=== PATIENT | female | born 1960 | race Hispanic/Latino ===

== ENCOUNTER 2021-12-02 11:46 | Emergency (ER) | payer OTHER ==
--- NOTE | 2021-12-02 12:36 | RAD REPORT ---
EXAM DESCRIPTION: CT - Head Brain Wo Cont - 12/02/2021 12:23 pm CLINICAL HISTORY: Stroke, follow up Headache, drowsiness, CVA symptomology COMPARISON: No comparisons TECHNIQUE: All CT scans are performed using dose optimization technique as appropriate and may inclu de automated exposure control or mA/KV adjustment according to patient size. FINDINGS: Significant motion degradation is present, with changes quite limiting the exam. No no tricia ss intracranial hemorrhage, hydrocephalus or extra-axial fluid collection.No gross evidence of midlin e shift. Area of gliosis likely present medial right occipital compatible with remote infarct. The paranasal sinuses and mastoids are clear. The calvarium is intact. IMPRESSION: The examination is limited by significant motion artifact. Grossly, no acute abnormalit y is seen.
[2021-12-02 12:39] LABS: Absolute Lymphocytes (CBC) 0.9 K/uL (0.7-4.9); Hematocrit 36.6 % (36.0-45.0); Lymphocytes % 6.8 % (15.3-44.8); MPV 8.2 fL (7.6-11.3); RBC Red Blood Cell Count 3.73 M/uL (3.86-4.86)
[2021-12-02 12:46] LABS: Protime INR 1.02
[2021-12-02 12:54] LABS: Potassium 3.6 mmol/L (3.5-5.1)
[2021-12-02] MEDS ORDERED: DIVALPROEX DR 250 MG TAB PO ONE (14:19)
--- NOTE | 2021-12-02 15:00 | ER ---
Nurse's Notes [facility] Name: Jacy Alvarez Age: 61 yrs Sex: Female : 1960 Arrival Date: 12/02/2021 Time: 11:59 Bed 2 Private MD: Diagnosis: Choreiform movements related to subacute cerebral infarction Presentation: 12/02 12:00 Chief complaint: EMS states: LEFT SIDED AND FACIAL INVOLUNTARY MOTIONS. Coronavirus bp screen: At this time, the client does not indicate any symptoms associated with coronavirus-19. Ebola Screen: No symptoms or risks identified at this time. No acute neurological deficit is noted. The patients blood glucose was checked before arriving to the hospital and was found to be normal. Initial Sepsis Screen: Does the patient meet any 2 criteria? No. Patient's initial sepsis screen is negative. Does the patient have a suspected source of infection? No. Patient's initial sepsis screen is negative. Risk Assessment: Do you want to hurt yourself or someone else? Patient reports no desire to harm self or others. Onset of symptoms was December 01, 2021 at 15:00. Care prior to arrival: IV initiated. 18 GA, in the right forearm, Glucose check: 150. 12:00 Method Of Arrival: EMS: [facility] bp 12:00 Acuity: ROSALIE 3 bp Triage Assessment: 12:01 The onset of the patients symptoms was December 01, 2021 at 15:00. General: Appears bp distressed, uncomfortable, Behavior is cooperative, appropriate for age, agitated, anxious. Pain: Denies pain. EENT: No deficits noted. Neuro: Level of Consciousness is awake, alert, obeys commands, Oriented to Appropriate for age SPASTIC MOTION. Reports LEFT SIDED WEAKNESS. Cardiovascular: No deficits noted. Respiratory: No deficits noted. GI: No signs and/or symptoms were reported involving the gastrointestinal system. : No signs and/or symptoms were reported regarding the genitourinary system. Derm: No deficits noted. Musculoskeletal: LEFT SIDED SPASTICITY. Stroke Activation: Symptom onset > 6 hours Physician: Stroke Attending; Name: ; Notified At: ; Arrived At: Physician: Chief Stroke Resident; Name: ; Notified At: ; Arrived At: Physician: Stroke Resident; Name: ; Notified At: ; Arrived At: Physician: ED Attending; Name: ; Notified At: ; Arrived At: Physician: ED Resident; Name: ; Notified At: ; Arrived At: Historical: - Allergies: 12:01 No Known Allergies; bp - Home Meds: 12:01 atorvastatin oral [Active]; carvedilol oral [Active]; gabapentin oral [Active]; Lipitor bp Oral [Active]; - PMHx: 12:01 Hypertensive disorder; Hypercholesterolemia; Diabetes mellitus; Cerebrovascular bp accident; - Immunization history:: Adult Immunizations up to date. - Social history:: Smoking status: Patient denies any tobacco usage or history of. - Family history:: not pertinent. - Hospitalizations: : Patient was recently seen at. Screenin:01 Abuse screen: Denies threats or abuse. Denies injuries from another. Nutritional bp screening: No deficits noted. Tuberculosis screening: No symptoms or risk factors identified. Fall Risk None identified. Assessment: 12:01 VAN Scoring: Arm Drift: Minor drift Visual Disturbance: No visual disturbance noted. bp Aphasia: No aphasia noted. Neglect: No neglect noted. The patient has not been NPO before screening. The patient is alert, and able to follow commands. The patient exhibits slurred or garbled speech. Provider notified of the indication for Speech Therapy consult. The patient is exhibiting difficulty speaking. Provider notified of the indication for Speech Therapy consult. The patient does not exhibit difficulty understanding words. The patient is able to swallow own secretions with no drooling or need for suction. Patient tolerated one teaspoon of water. No drooling, immediate coughing, gurgling, or clearing of the throat was noted. The patient tolerated 90mL of water. No drooling, immediate coughing, gurgling, or clearing of the throat was noted. The patient failed the bedside swallow screening. The patient will be kept NPO until cleared by Speech Therapy or Physician. Provider notified of bedside swallow screening results: Shekhra Hendersno MD. T-PA (Activase) Screening: Contraindications: Patient reports onset of signs and symptoms of stroke greater than 6 hours ago:. General: SEE TRIAGE NOTE. 13:03 Reassessment: No changes from previously documented assessment. Patient and/or family bp updated on plan of care and expected duration. Pain level reassessed. RETURNED FROM CT. 14:39 Reassessment: No changes from previously documented assessment. Patient and/or family bp updated on plan of care and expected duration. Pain level reassessed. Vital Signs: 12:00 BP 152 / 96; Pulse 83; Resp 16; Temp 98.4; Pulse Ox 98% ; bp 13:02 BP 184 / 76; Pulse 80; Resp 16; Pulse Ox 97% ; bp 14:33 BP 180 / 76; Pulse 80; Resp 18; Pulse Ox 96% ; bp 15:20 BP 146 / 67; Pulse 80; Resp 16; Temp 97.23; Pulse Ox 98% ; bp NIH Stroke Scale Scores: 12:01 NIHSS Score: 6 bp ED Course: 11:59 Patient arrived in ED. bp 12:01 Triage completed. bp 12:01 Arm band placed on. bp 12:01 Patient has correct armband on for positive identification. Bed in low position. Call bp light in reach. Side rails up X2. 12:01 Maintain EMS IV. Dressing intact. Good blood return noted. Site clean \T\ dry. Gauge \T\ bp site: 18 GAUGE R FA. 12:03 Cipriano Bowen PA is PHCP. jm 12:03 Shekhar Henderson MD is Attending Physician. [facility] 12:10 Charbel Zuniga, ZENAIDA is Primary Nurse. jd3 12:11 Kian Cervantes, ZENAIDA is Primary Nurse. bp 12:26 CT Head Brain wo Cont In Process Unspecified. EDMS Administered Medications: 14:10 Drug: Depakote (divalproex) 500 mg Route: PO; bp 15:03 Follow up: Response: No adverse reaction bp Medication: 12:01 VIS not applicable for this client. bp Point of Care Testing: Blood Glucose: 12:01 Blood Glucose: 150 mg/dL; bp Ranges: Outcome: 14:59 Discharge ordered by . rn 15:46 Patient left the ED. bp NIH Stroke Scale - NIH Stroke Score Date: 12/02/2021 Time: 12:01 Total Score = 6 1a. Level of Consciousness (LOC) - 0(Alert) 1b. Level of Consciousness (LOC) (Month \T\ Age) - 0(Both) 1c. LOC Commands (Open \T\ Closes Eyes/Consulting Solution Manager) - 0(Both) 2. Best Gaze (Lateral Gaze Paresis) - 0(Normal) 3. Visual Field Loss - 0(No visual loss) 4. Facial Palsy - 0(Normal) 5a. Left Arm: Motor (10-second hold) - 2(Drift, some effort against gravity) 5b. Right Arm: Motor (10-second hold) - 0(No drift) 6a. Left Leg: Motor (5-second hold - always test supine) - 2(Drift, some effort against gravity) 6b. Right Leg: Motor (5-second hold - always test supine) - 0(No drift) 7. Limb Ataxia (finger/nose \T\ heel/lizama - test with eyes open) - 1(Present in one limb) 8. Sensory Loss (pinprick arms/legs/face) - 0(Normal) 9. Best Language: Aphasia (description/naming/reading) - 0(No aphasia) 10. Dysarthria (speech clarity - read or repeat words) - 1(Mild to Moderate) 11. Extinction and Inattention (visual/tactile/auditory/spatial/personal) - 0(No abnormality) Initials: bp Signatures: Dispatcher [employer] EDCipriano Juan PA PA jmm Nieto, Roman, MD MD rn Davies, Jonathon, RN RN jd3 Peltier, Brian, RN RN bp Corrections: (The following items were deleted from the chart) 15:45 15:20 BP 154 / 67; Pulse 80bpm; Resp 16bpm; Pulse Ox 98%; Temp 97.23F; bp bp
--- NOTE | 2021-12-02 15:00 | EDPHYS ---
Physician Documentation [facility] Name: Jacy Alvarez Age: 61 yrs Sex: Female : 1960 Arrival Date: 12/02/2021 Time: 11:59 Bed 2 Private MD: ED Physician Shekhar Henderson HPI: 12/02 13:48 This 61 yrs old Female presents to ER via EMS with complaints of worsening rn movement problem. 13:48 The patient presents to the emergency department with involuntary movements. rn 13:49 Onset: The symptoms/episode began/occurred 2 week(s) ago. Associated signs and rn symptoms: Pertinent negatives: altered mental status, fever, syncope, loss of vision. Severity of symptoms: At their worst the symptoms were moderate in the emergency department the symptoms are unchanged. Current symptoms:. The patient has been recently seen by a physician:. Pt reports seen recently at [facility], presented with involuntary movements of left side of body, diagnosed with stroke per patient. Was sent to rehab and then home. Today, family and home health nurse noticed movement worsening and seemed to cause patient more stress, so called 911. No new neurological complaints or symptoms. No trauma. Pt reports these symptoms present even prior to hospitalization. . Historical: - Allergies: 12:01 No Known Allergies; bp - Home Meds: 12:01 atorvastatin oral [Active]; carvedilol oral [Active]; gabapentin oral [Active]; Lipitor bp Oral [Active]; - PMHx: 12:01 Hypertensive disorder; Hypercholesterolemia; Diabetes mellitus; Cerebrovascular bp accident; - Immunization history:: Adult Immunizations up to date. - Social history:: Smoking status: Patient denies any tobacco usage or history of. - Family history:: not pertinent. - Hospitalizations: : Patient was recently seen at. ROS: 13:49 Constitutional: Negative for fever, chills, and weight loss, Eyes: Negative for injury, rn pain, redness, and discharge, Neck: Negative for injury, pain, and swelling, Cardiovascular: Negative for chest pain, palpitations, and edema, Respiratory: Negative for shortness of breath, cough, wheezing, and pleuritic chest pain, Abdomen/GI: Negative for abdominal pain, nausea, vomiting, diarrhea, and constipation, Back: Negative for injury and pain, MS/Extremity: Negative for injury and deformity, Skin: Negative for injury, rash, and discoloration, Neuro: Negative for numbness, tingling, and seizure. Exam: 13:49 Constitutional: This is a well developed, well nourished patient who is awake, alert, rn and in no acute distress. Head/Face: Normocephalic, atraumatic. Cardiovascular: Regular rate and rhythm. No pulse deficits. Respiratory: No increased work of breathing, no retractions or nasal flaring. Abdomen/GI: soft, non-tender Skin: Warm, dry MS/ Extremity: Pulses equal, no cyanosis. Neuro: Awake and alert, GCS 15, oriented to person, place, time, and situation. + unsynchronized involuntary movements of face, left arm, left leg, fully concsious, with ability to slow movements down with intention but returns rapidly. Vital Signs: 12:00 BP 152 / 96; Pulse 83; Resp 16; Temp 98.4; Pulse Ox 98% ; bp 13:02 BP 184 / 76; Pulse 80; Resp 16; Pulse Ox 97% ; bp 14:33 BP 180 / 76; Pulse 80; Resp 18; Pulse Ox 96% ; bp 15:20 BP 146 / 67; Pulse 80; Resp 16; Temp 97.23; Pulse Ox 98% ; bp NIH Stroke Scale Scores: 12:01 NIHSS Score: 6 bp MDM: 12:05 Patient medically screened. rn 13:44 ED course: Consulted with Dr. Langston, w/u here does not show any new or abnormal rn findings, stable vitals, he recommends dc home with initiation of depakote 250mg bid and f/u in neurology clinic. . 14:57 Data reviewed: vital signs, nurses notes, lab test result(s), radiologic studies, CT rn scan, and as a result, I will discharge patient. Counseling: I had a detailed discussion with the patient and/or guardian regarding: the historical points, exam findings, and any diagnostic results supporting the discharge/admit diagnosis, lab results, radiology results, the need for outpatient follow up, to return to the emergency department if symptoms worsen or persist or if there are any questions or concerns that arise at home. Special discussion: I discussed with the patient/guardian in detail that at this point there is no indication for admission to the hospital. It is understood, however, that if the symptoms persist or worsen the patient needs to return immediately for re-evaluation. 12/02 12:05 Order name: Basic Metabolic Panel; Complete Time: 12:58 rn 12/02 12:05 Order name: CBC with Diff; Complete Time: 12:51 rn 12/02 12:05 Order name: CT Head Brain wo Cont; Complete Time: 12:51 rn 12/02 12:05 Order name: Protime (+inr); Complete Time: 12:51 rn 12/02 12:05 Order name: Ptt, Activated; Complete Time: 12:51 rn 12/02 12:05 Order name: EKG; Complete Time: 12:06 rn 12/02 12:05 Order name: Accucheck; Complete Time: 12:12 rn 12/02 12:05 Order name: Cardiac monitoring; Complete Time: 12:12 rn 12/02 12:05 Order name: EKG - Nurse/Tech; Complete Time: 12:19 rn 12/02 12:05 Order name: IV Saline Lock; Complete Time: 12:19 rn 12/02 12:05 Order name: Labs collected and sent; Complete Time: 12:19 rn 12/02 12:05 Order name: O2 Per Protocol; Complete Time: 12:12 rn 12/02 12:05 Order name: O2 Sat Monitoring; Complete Time: 12:13 rn 12/02 12:05 Order name: Stroke Swallow Screen; Complete Time: 12:13 rn Administered Medications: 14:10 Drug: Depakote (divalproex) 500 mg Route: PO; bp 15:03 Follow up: Response: No adverse reaction bp Point of Care Testing: Blood Glucose: 12:01 Blood Glucose: 150 mg/dL; bp Ranges: Critical Glucose Levels:Adult <50 mg/dl or >400 mg/dl <40 mg/dl or >180 mg/dl Disposition Summary: 12/02/21 14:59 Discharge Ordered Location: Home rn Problem: new rn Symptoms: have improved rn Condition: Stable rn Diagnosis - Choreiform movements related to subacute cerebral infarction rn Followup: rn - With: Private Physician - When: As needed - Reason: Recheck today's complaints, Re-evaluation by your physician Discharge Instructions: - Discharge Summary Sheet rn Forms: - Medication Reconciliation Form rn - Thank You Letter rn - 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 Level of Consciousness (LOC) - 0(Alert) 1b. Level of Consciousness (LOC) (Month \T\ Age) - 0(Both) 1c. LOC Commands (Open \T\ Closes Eyes/Technical Support Intern) - 0(Both) 2. Best Gaze (Lateral Gaze Paresis) - 0(Normal) 3. Visual Field Loss - 0(No visual loss) 4. Facial Palsy - 0(Normal) 5a. Left Arm: Motor (10-second hold) - 2(Drift, some effort against gravity) 5b. Right Arm: Motor (10-second hold) - 0(No drift) 6a. Left Leg: Motor (5-second hold - always test supine) - 2(Drift, some effort against gravity) 6b. Right Leg: Motor (5-second hold - always test supine) - 0(No drift) 7. Limb Ataxia (finger/nose \T\ heel/lizama - test with eyes open) - 1(Present in one limb) 8. Sensory Loss (pinprick arms/legs/face) - 0(Normal) 9. Best Language: Aphasia (description/naming/reading) - 0(No aphasia) 10. Dysarthria (speech clarity - read or repeat words) - 1(Mild to Moderate) 11. Extinction and Inattention (visual/tactile/auditory/spatial/personal) - 0(No abnormality) Initials: bp Signatures: Dispatcher [employer] EDShekhar Ramon MD MD rn Peltier, Brian, RN RN bp Corrections: (The following items were deleted from the chart) 13:54 13:49 Constitutional: This is a well developed, well nourished patient who is rn awake, alert, and in no acute distress. rn
[2021-12-02 15:56] VITALS: TEMP 98.4
[2021-12-02 15:59] VITALS: BP 180/76; O2SAT 96
--- NOTE | 2021-12-03 07:56 | EKG ---
Test Date: 2021-12-02 Test Time: 12:03:08 Director Of Gift Planning: SARAH MEASUREMENT RESULTS: Intervals: Rate: 83 DC: 164 QRSD: 142 QT: 402 QTc: 472 [place]: P: 72 DC: 164 QRS: 3 T: 9 INTERPRETIVE STATEMENTS: Normal sinus rhythm Right bundle branch block Abnormal ECG No previous ECG available for comparison Electronically Signed On 12-03-21 07:52:42 CDT by Randy Hendrickson
== END 2021-12-02 15:46 | disposition home or self-care (01) ==
LOC: ER 11:46
DX: G25.5 Other chorea (principal); E11.9 Type 2 diabetes mellitus without complications; I10 Essential (primary) hypertension; R29.706 NIHSS score 6; Z86.73 Personal history of transient ischemic attack (TIA), and cerebral infarction without residual deficits
CPT/HCPCS: 36415; 70450; 80048; 85025; 85610; 85730; 93005; 99284

== ENCOUNTER 2021-12-04 15:06 | Emergency (ER) | payer OTHER ==
--- OUTSIDE RECORDS SUMMARY | 2021-12-04 15:12 | XMS REPORT | Continuity of Care Document ---
:1960 Author Organization [facility] t Address [address] [place] [address] Care Team Providers Name Role Phone [phone] Attending Clinician Unavailable DOMENICA CURTIS Attending Clinician Unavailable LUIS JACKSON ROSHNI Attending Clinician Unavailable DAYANARA ROBERT Attending Clinician Unavailable MD GIOVANNA RESENDIZ Attending Clinician Unavailable SHILA SIBLEY Attending Clinician Unavailable SUSAN SHELL Attending Clinician Unavailable MD ALBERTINA WAGNER Attending Clinician Unavailable ALBERTINA WAGNER Attending Clinician Unavailable JOSE ALEXANDRE Attending Clinician Unavailable MASHA GRACE Attending Clinician Unavailable MD MASHA GRACE Attending Clinician Unavailable SCARLET VERDUZCO Attending Clinician Unavailable MD SCARLET VERDUZCO Attending Clinician Unavailable AUGUSTINA JOE Attending Clinician Unavailable ELENO Attending Clinician Unavailable [id number] Admitting Clinician Unavailable LUIS JACKSON Admitting Clinician Unavailable ASTRID Admitting Clinician Unavailable SUMAYA Admitting Clinician Unavailable MD BERNARD Admitting Clinician Unavailable BERNARD Admitting Clinician Unavailable LESLY Admitting Clinician Unavailable BALDOMERO Admitting Clinician Unavailable MD LESLY Admitting Clinician Unavailable Admitting Clinician Unavailable MD KAMARI VERDUZCO Admitting Clinician Unavailable ELLY BRUMFIELD Admitting Clinician Unavailable Payers Payer Name Policy Type Policy Number Effective Date Expiration Date S lashell [facility] [id number] Problems Condition Condition Condition Status Onset Resolution Last Treating Co mments Source Name Details Category Date Date Treatment Clinician Date BOIL Diagnosis Active 2019-12-20 Mem oria 12-04 21:53:00 l BOIL 00:00: [place] 00 Active 12/05/2019 [facility] ABSCESS Diagnosis Active 2019-11-30 Me moria 6- 14:52:00 l ABSCESS 00:00: Brian 00 Active 11/30/2019 [facility] PERIRECTAL Diagnosis Active 2019-12-01 Memoria INFLAMMATI 6- 15:20:00 l ON, 00:00: Brian DIABETES PERIRECTAL 00 MELLIT INFLAMMATI ON, DIABETES MELLIT Active 11/30/2019 [facility] E83.52 Diagnosis Active 2017-062018-05-31 Mem oria 1-08 08:57:00 l E83.52 00:00: Brian 00 Active 05/05/2018 [facility] 252.00 Diagnosis Active 2015-01-21 Mem oria 11-27 08:14:00 l 252.00 00:00: [place] 00 Active 11/27/2014 [facility] Angina Problem Active 2019-12-18 Memor ia (disorder) 2 15:54:30 l Angina 00:00: [place] (disorder) 00 Active 07/31/2013 Problem 12/18/2019 Data migrated from [employer] on 11/24/14. [facility], [facility], [facility] Hyperlipid Problem Active 2019-12-18 M emoria emia 2 15:54:30 l (disorder) 00:00: Cody n Hyperlipid 00 emia (disorder) Active 07/31/2013 Problem 12/18/2019 Data migrated from [employer] on 11/24/14. [facility], [facility], [facility] Hypercalce Problem 2018-12-20 M emoria lucas 11:27:22 l [place] Hypercalce lucas 12/20/2018 [facility] Other Problem 2018-12-20 Memor ia specified 11:27:22 l diseases Other [place] of liver specified diseases of liver 12/20/2018 [facility], [facility] Acquired Problem 2018-12-20 Mem oria absence of 11:27:22 l other Acquired Cody n specified absence of parts of other digestive specified tract parts of digestive tract 12/20/2018 [facility] Abnormal Problem 2018-12-20 Mem oria findings 11:27:22 l on Abnormal Cody n diagnostic findings imaging of on liver and diagnostic biliary imaging of tract liver and biliary tract 12/20/2018 [facility] Encounter Problem 2019-06-04 Me moria for 23:57:44 l screening [place] mammogram Encounter for for malignant screening neoplasm mammogram of breast for malignant neoplasm of breast 06/04/2019 [facility] Cholecysti Problem Resolve 2019-12-18 Memoria tis d 15:54:30 l (disorder) Cody n Cholecysti tis (disorder) Resolved Problem 12/18/2019 [facility], [facility], [facility] Hypertensi Problem Resolve 2019-12-18 Memoria ve d 15:54:30 l disorder, [place] systemic Hypertensi arterial ve (disorder) disorder, systemic arterial (disorder) Resolved Problem 12/18/2019 [facility], [facility], [facility] Chest pain Problem Active 2019-12-18 M emoria (finding) 15:54:30 l Chest [place] pain (finding) Active Problem 12/18/2019 Data migrated from [employer] on 11/24/14. [facility], [facility], [facility] Diabetes Problem Active 2019-12-18 Mem oria mellitus 15:54:30 l (disorder) Diabetes He rmann mellitus (disorder) Active Problem 12/18/2019 Data migrated from [employer] on 11/24/14. [facility], [facility], [facility] Essential Problem Active 2019-12-18 Me moria hypertensi 15:54:30 l on Brian (disorder) Essential hypertensi on (disorder) Active Problem 12/18/2019 Data migrated from [employer] on 11/24/14. [facility], [facility], [facility] Abscess of Diagnosis Active 2019-12-23 Memoria buttock, 02:45:21 l right Abscess Brian of buttock, right Active Diagnosis 12/23/2019 [facility] Morbid Problem Active 2019-12-23 Memor ia obesity 02:45:21 l due to Morbid [place] excess obesity calories due to excess calories Active Problem 12/23/2019 [facility] CELLULITIS Diagnosis Active 2019-12-20 Memoria OF BUTTOCK 21:53:00 l Brian CELLULITIS OF BUTTOCK Active [facility] OTHER Diagnosis Active 2019-12-01 Mem oria SPECIFIED 15:20:00 l DISEASES OTHER Brian OF ANUS SPECIFIED AND REC DISEASES OF ANUS AND REC Active [facility] TYPE 2 Diagnosis Active 2019-12-01 Mem oria DIABETES 15:20:00 l MELLITUS TYPE 2 Cody n WITH DIABETES HYPERGLYCE MELLITUS WITH HYPERGLYCE Active [facility] OTHER Diagnosis Active 2019-12-01 Mem oria SPECIFIED 15:20:00 l ABNORMAL OTHER Brian FINDINGS SPECIFIED OF BLO ABNORMAL FINDINGS OF BLO Active [facility] History of Past Illness Condition Condition Condition Status Onset Resolution Last Treating Co mments Source Name Details Category Date Date Treatment Clinician Date Dorsalgia, Problem 2019-01-05 2019-01-05 Memoria unspecifie 01-03 22:42:34 22:42:34 l d 17:00: Brian Dorsalgia, 00 unspecifie d 01/03/2019 01/05/2019 [facility] Cutaneous Problem 2019-01-05 2019-01-05 Memoria abscess, 01-03 22:42:34 22:42:34 l unspecifie 17:00: Cody briscoe Cutaneous 00 abscess, unspecifie d 01/03/2019 01/05/2019 [facility] Urinary Problem 2019-01-05 2019-01-05 Memoria tract 01-03 22:42:34 22:42:34 l infection, Urinary 17:00: Her guzman site not tract 00 specified infection, site not specified 01/03/2019 01/05/2019 [facility] Hyperparat Problem 2017-062018-12-20 2018-12-20 Memoria hyroidism, 08-08 11:27:22 11:27:22 l unspecifie 05:34: Cody briscoe Hyperparat 08 hyroidism, unspecifie d 06/07/2018 12/20/2018 [facility] Cough Problem 2017-062018-10-11 2018-10-11 M emoria 2-03 13:40:16 13:40:16 l Cough 07:04: [place] 07 05/30/2018 10/11/2018 [facility] Discharge Problem 2015-2016-02-23 2016-02-23 Memoria Diagnosis: 8 03:22:52 03:22:52 l Abscess 05:00: [place] and Discharge 00 cellulitis Diagnosis: Abscess and cellulitis 02/20/2016 02/23/2016 [facility] Allergies, Adverse Reactions, Alerts Allergy Allergy Status Severity Reaction(s) Onset Inactive Treating Comm ents Source Name Type Date Date Clinician sulfamet sulfamet Active Info Not 2019-0 Jacinto margarita hoxazole hoxazole Available 12-21 l 00:00: Brian 00 sulfa sulfa Active Candidiasis Memor ia drugs drugs (disorder) l Brian Social History Smoking Status Start Date Stop Date Source Social History [facility] Medications Ordered Filled Start Stop Current Ordering Indication Dosage Frequency Signature Comments Components Source Medication Medication Date Date Medication? Clinician (SIG) Name Name nitroglycer 2019-0 Yes WESLEY 1 PATCH Me moria in 12-22 ANDREY l 02:45: potassium 2020-0 Yes WESLEY 1 cap(s) Mem oria chloride 12-22 ANDREY l 02:45: Zofran 2020-0 Yes WESLEY 1 tab(s) Memori a - ANDREY l 02:45: gabapentin 2020-0 Yes WESLEY 1 cap(s) Me moria - ANDREY l 02:45: famotidine 2020-0 Yes WESLEY 1 tab(s) Me moria - ANDREY l 02:45: MiraLax 2020-0 Yes WESLEY as Memoria - ANDREY directed l 02:45: Acidophilus 2020-0 Yes WESLEY 1 cap(s) M emoria Extra - ANDREY l Strength 02:45: tramadol 2020-0 Yes WESLEY 1 tab(s) Jacinto margarita - ANDREY l 02:45: Crestor 2020-0 Yes WESLEY 1 tab(s) Memor ia - ANDREY l 02:45: Lovenox 2020-0 Yes WESLEY as Memoria - ANDREY directed l 02:45: nifedipine 2020-0 Yes WESLEY 1 tab(s) Me moria 6-27 ANDREY l 02:45: Tylenol 2020-0 Yes WESLEY 2 tab(s) Memor ia - ANDREY l 02:45: Fleet Enema 2020-0 Yes WESLEY 133 mL Mem oria - ANDREY l 02:45: Maalox Max 2020-0 Yes WESLEY not Memori a - ANDREY defined l 02:45: senna 2020-0 Yes WESLEY 1 tab(s) Memoria - ANDREY l 02:45: furosemide 2020-0 Yes WESLEY 1 tab(s) Me moria - ANDREY l 02:45: cefazolin 2020-0 Yes WESLEY as Memoria - ANDREY directed l 02:45: calcium 2020-0 Yes WESLEY 1 tab(s) Memor ia carbonate 12-22 ANDREY l 02:45: docusate 2020-0 Yes WESLEY 1 tab(s) Jacinto margarita - ANDREY l 02:45: latanoprost 2020-0 Yes WESLEY 1 gtt Jacinto margarita ophthalmic - ANDREY l 02:45: methocarbam 2020-0 Yes WESLEY 2 tab(s) M emoria ol 12-22 ANDREY l 02:45: alprazolam 2020-0 Yes WESLEY 1 tab(s) Me moria - ANDREY l 02:45: carvedilol 2020-0 Yes WESLEY 1 tab(s) Me moria -27 ANDREY l 02:45: irbesartan 2020-0 Yes WESLEY 1 tab(s) Me moria 6-27 ANDREY l 02:45: insulin 2020-0 Yes WESLEY 0 Memoria lispro - ANDREY l 02:45: Lantus 2020-0 Yes WESLEY 0 Memoria - ANDREY l 02:45: ceFAZolin 2 2020-0 Yes 2 gm, IV, M emoria g injection 6-17 Q8H, X 7 l 18:28: day, # 21 Brian 00 ea, 0 Refill(s), other Insulin 2020-0 Yes 20 unit, Memori a Glargine 6-17 SUB-Q, l 100 UNT/ML 17:33: Daily, 0 Her guzman Injectable 00 Refill(s) Solution insulin 2020-0 Yes 3 unit, Memoria lispro 100 6-17 SUB-Q, l units/mL 17:33: TID-Before Her guzman injectable 00 Meals, PRN solution Blood Glucose Results, 0 Refill(s) 0.4 ML 2020-0 Yes 40 mg, Memoria Enoxaparin 6-17 SUB-Q, l sodium 100 16:12: Daily, X 7 H ermann MG/ML 00 day, # 7 Prefilled ea, 0 Syringe Refill(s), [Lovenox] other tramadol 2019-0 No 50 mg = 1 Jacinto margarita hydrochlori 6-17 tab, PO, l de 50 MG 15:05: Q6H, PRN Marika nn Oral Tablet 00 Pain Score 4-6, X 3 day, # 21 tab, 0 Refill(s), Pharmacy: [facility], 160.02, cm, 12/06/19 22:42:00 CDT, Height, 96.364, kg, 12/06/19 22:42:00 CDT, Weight Calcium 2019-0 Yes 500 mg = 1 Jacinto margarita Carbonate 6-17 tab, CHEW, l 500 MG 15:05: TID, PRN Brian Chewable 00 Indigestio Tablet n, 0 Refill(s) Docusate 2019-0 Yes 100 mg = 1 Mem oria Sodium 100 6-17 cap, PO, l MG Oral 15:05: BID, 0 [place] Capsule 00 Refill(s) Ergocalcife 2019-0 Yes 50,000 Jacinto margarita rol [id number] 6-17 IntlUnit = l UNT Oral 15:05: 1 cap, PO, Her guzman Capsule 00 QTue, 0 Refill(s) heparin 2019-0 Yes 5,000 unit Jacinto margarita 6-17 = 1 mL, l 15:05: SUB-Q, Brian 00 Q12H, 0 Refill(s) sennosides, 2020-0 Yes 34.4 mg = M emoria LONGTERM 8.6 MG 6-17 4 tab, PO, l Oral Tablet 15:05: Daily, 0 He rm Refill(s) Ondansetron 2019- Yes 4 mg = 1 Me moria 4 MG Oral 6-17 tab, PO, l Tablet 15:05: Q6H, PRN Brian [Zofran] 00 Nausea/Vom iting, # 30 tab, 0 Refill(s), Pharmacy: [facility], 160.02, cm, 12/06/19 22:42:00 CDT, Height, 96.364, kg, 12/06/19 22:42:00 CDT, Weight Cefazolin 2019- No Notes: Memori a 6-17 (Same As: l 15:00: Ancef, Kefzol) MEDICATION WASTE Product Size: 1000 mg Product Wasted: ___ mg Tums 2019- No 500 mg, 1 Memoria 6-17 tab, l 05:18: Route: CHEW, Drug form: CHEWTAB, TID, Dosing Weight 96.364, kg, PRN Indigestio n, Start date: 12/13/19 0:18:00 CDT, Duration: 30 day, Stop date: 01/12/20 0:17:00 CDT, 0 Vitamin D2 2019- No Notes: Memor ia 6-16 (Same as: l 14:00: Vitamin D) "Do Not Crush" Clindamycin No Notes: Jacinto margarita 6-14 (Same As: l 14:00: Cleocin) Docusate 2019-0 No Notes: Memoria 6-13 (Same as: l 14:00: Colace) (Do Not Crush) metoclopram 2019- No Route: IV, Memoria renetta (ANES) 6-13 Drug form: l 01:10: INJ, ONCE, Stop date: 12/08/19 20:10:00 CDT ondansetron 2019-0 No Route: IV, Memoria (ANES) 6-13 Drug form: l 01:10: INJ, ONCE, Stop date: 12/08/19 20:10:00 CDT phenylephri 2020-0 No Route: IV, Memoria ne (ANES) - Drug form: l 01:05: INJ, ONCE, Stop date: 12/08/19 20:05:00 CDT lidocaine 2020-0 No Route: IV, Me moria (ANES) 6- Drug form: l 00:50: INJ, ONCE, Stop date: 12/08/19 19:50:00 CDT propofol 2020-0 No Route: IV, Mem oria (ANES) 6- Drug form: l 00:50: INJ, ONCE, Stop date: 12/08/19 19:50:00 CDT succinylcho 2019-0 No Route: IV, Memoria line (ANES) - Drug form: l 00:50: INJ, ONCE, Stop date: 12/08/19 19:50:00 CDT rocuronium 2019-0 No Route: IV, M emoria (ANES) - Drug form: l 00:50: INJ, ONCE, Stop date: 12/08/19 19:50:00 CDT fentaNYL 2020-0 No Route: IV, Mem oria (ANES) 6- Drug form: l 00:49: INJ, ONCE, Stop date: 12/08/19 19:49:00 CDT midazolam 2020-0 No Route: IV, Me moria (ANES) - Drug form: l 00:44: SOLN, Brian 00 ONCE, Stop date: 12/08/19 19:44:00 CDT fentaNYL 2020-0 No Route: IV, Mem oria (ANES) 6- Drug form: l 00:44: INJ, ONCE, Stop date: 12/08/19 19:44:00 CDT Morphine 2020-0 No Notes: Memoria - (Same l 00:44: as:MORPhin e Sulfate) Hydromorpho 2019-0 No Notes: Jacinto margarita ne - Same as: l 00:44: Dilaudid Flumazenil 2019-0 No Notes: Memor ia - (Same as: l 00:44: Romazicon) Naloxone 2019-0 No Notes: Memoria 6-13 Same as l 00:44: Narcan Ephedrine No Notes: Memori a 6-13 final l 00:44: concentrat ion 5 mg/mL Diphenhydra No Notes: Jacinto margarita mine 6-13 (Same as: l 00:44: Benadryl) Meperidine 0 No Notes: Memor ia 6-13 (Same as: l 00:44: Demerol) "Use Precaution in Elderly, Seizure disorders, and Renal impairment " Ondansetron No Notes: Jacinto margarita 6-13 (Same as: l 00:44: Zofran) MEDICATION WASTE Product Size: 4 mg Product Wasted: ___ mg morphine No Route: IV, Mem oria Sulfate 6-13 Drug form: l (ANES) 10 00:41: INJ, Start He rmann mg date: 12/08/19 19:41:00 CDT, Stop date: 12/08/19 20:41:00 CDT phenylephri No Route: IV, Memoria ne (ANES) 6-13 Drug form: l 100 00:15: INJ, Start [place] microgram date: 12/08/19 19:15:00 CDT, Stop date: 12/08/19 20:15:00 CDT ceFAZolin No Route: IV, Me moria (ANES) 1000 6-13 Drug form: l mg 00:15: INJ, Start date: 12/08/19 19:15:00 CDT, Stop date: 12/08/19 20:15:00 CDT Tramadol 0 No Notes: Not Mem oria 6-13 to exceed l 00:00: 400mg/day. (Same As: Ultram) Hydromorpho 0 No Notes: Jacinto margarita ne 6-13 Same as: l 00:00: Dilaudid Naloxone 2019-0 No Notes: Memoria 6-13 Same as l 00:00: Narcan Bisacodyl 0 No Notes: Memori a 6-13 (Same As: l 00:00: Dulcolax, Bisco-Lax) Ondansetron No Notes: Jacinto margarita 6-13 (Same as: l 00:00: Zofran) MEDICATION WASTE Product Size: 4 mg Product Wasted: ___ mg Melatonin No Notes: Memori a 6-13 (Same as: l 00:00: Melatonin) Lactated No Route: IV, Mem oria Ringers 6-12 Total l Injection 23:50: Volume: Marika nn IV (ANES) 00 1,000, 1000 mL Start date: 12/08/19 18:50:00 CDT, Stop date: 12/08/19 19:50:00 CDT Dilaudid No Notes: Memoria 6-12 Same as: l 21:18: Dilaudid Acetaminoph No Notes: Do M emoria en 325 MG / 612 not exceed l Oxycodone 21:18: 4gm/day of He acetaminop de 5 MG hen. Oral Tablet (Same as: [Percocet Percocet-5 5/325] /325) Cefazolin No Notes: Memori a 6-12 (Same As: l 21:00: AncefRosieBrian 00 Kefzol) MEDICATION WASTE Product Size: 1000 mg Product Wasted: ___ mg Clindamycin No Notes: Jacinto margarita 6-12 (Same As: l 21:00: Cleocin) Insulin No Notes: Memoria Lispro 12 (Same as: l 16:30: Humalog) Roll in palms of hands gently; Do not shake vigorously . WASTE: F/P - Black; E - Municipal Trash Bin Stable for 28 days at room temperatur e. Expires in days from ____Date senradhasides, No 34 mg, 2 Me moria LONGTERM 6-12 tab, l 14:00: Route: PO, Drug Form: TAB, Dosing Weight 96.364, kg, Daily, Start date: 12/08/19 9:00:00 CDT, Duration: 30 day, Stop date: 01/06/20 9:00:00 CDT Senokot No Notes: Memoria 6-12 (Same as: l 14:00: Senokot) carvedilol No Notes: Memor ia 6-12 Give with l 02:00: food. (Same As: Coreg) gabapentin No Notes: Memor ia 6-12 (Same as: l 02:00: Neurontin) irbesartan No Notes: Memor ia 6-12 (Same l 02:00: as:Avapro) NIFEdipine No Notes: Memor ia 60 mg oral 6-12 (Same as: l tablet, 02:00: Adalat CC, Herm jose Procardia release XL) Give on empty stomach. Take 1 hour before or 2 hours after meal; "Avoid grapefruit and grapefruit juice". Do not crush Crestor No Notes: Memoria 6-12 (Same As: l 02:00: Crestor) latanoprost No Notes: Jacinto margarita 6-11 Keep l 22:00: refrigerat ed. (Same as:Xalatan ) Opened bottle may be stored at room temperatur e for 6 weeks Vitamin D3 No 50,000 Memor ia 6-11 IntlUnit, l 18:00: 1 cap, Route: PO, Drug form: CAP, qWeek, Dosing Weight 96.364, kg, Start date: 12/07/19 13:00:00 CDT, Duration: 30 day, Stop date: 01/04/20 9:00:00 CDT Alprazolam No Notes: Memor ia 0.25 MG 6-11 With food l Oral Tablet 17:54: or milk Her guzman (Same as: Xanax) Humulin R 2019-0 Yes Humulin R Mem oria U-500 6-11 U-500, 10, l 15:56: SUB-Q, BID-Meals, Refill(s) 0 SymlinPen 0 No SymlinPen Mem oria 120 6-11 120 l (Pramlintid 15:56: (Pramlinti [place] e acetate) 00 de acetate), 120mcg, SUB-Q, Daily, Refill(s) 0 Insulin No Notes: Memoria Glargine -11 (Same as: l 14:00: Lantus) Do [place] 00 not hold insulin without contacting prescriber WASTE: F/P - Black; E - Municipal Trash Bin "single patient use only" Stable for 28 days at room temperatur e Expires in days from ____Date BD Normal No Notes: Memori a Saline 12-06 (Same as: l Flush 13:00: BD [place] 00 Posiflush) Sodium No 25 mL, Memoria Chloride 12-06 Route: IV, l 0.9% IV 13:00: Start date: 12/07/19 8:00:00 CDT, Duration: 30 day, Stop date: 01/06/20 7:59:00 CDT, PRN Line Flush, 0 Insulin 0 No Notes: Memoria Lispro 12-06 (Same as: l 12:51: Humalog) Roll in palms of hands gently; Do not shake vigorously . WASTE: F/P - Black; E - Municipal Trash Bin Stable for 28 days at room temperatur e. Expires in days from ____Date Vancomycin No 2000 mg: Me moria 6-10 infuse l 17:00: over 2.5 Brian 00 hours For adult patients only: Round to nearest 250 mg per Medical Staff approval MEDICATION WASTE Product Size: 1000 mg Product Wasted: _0__ mg insulin, No Notes: Memoria isophane 6-10 (Same as: l 14:00: Humulin N) [place] 00 Roll in palms of hands gently; Do not shake vigorously . WASTE: F/P - Black; E - Municipal Trash Bin Stable for 31 days at room temperatur e Expires in days from ____Date heparin 2020-0 No Notes: Memoria 6-10 porcine l 14:00: heparin Vancomycin 2020-0 No 1.5 gm, Jacinto margarita 6-10 Route: IV, l 13:00: Q8H, Brian 00 Dosing Weight 96.364, kg, Start date: 12/06/19 8:00:00 CDT, Duration: 10 day, Stop date: 12/16/19 0:00:00 CDT, ABX Indication : Skin/Soft Tissue Infection Ondansetron 0 No Notes: Jacinto margarita 6-10 (Same as: l 08:42: Zofran) MEDICATION WASTE Product Size: 4 mg Product Wasted: _0__ mg normal No 1,000 mL, Memori a saline 0.9% 6-10 Rate: 125 l IV 1,000 mL 08:40: ml/hr, Infuse over: 8 hr, Route: IV, Dosing Weight 96.364 kg, Total Volume: 1,000, Start date: 12/06/19 3:40:00 CDT, Duration: 30 day, Stop date: 01/05/20 3:39:00 CDT, 2.1, m2, 0 Acetaminoph No Notes: Do M emoria en 325 MG / 6-10 not exceed l Hydrocodone 08:40: 4gm/day of [place] Bitartrate acetaminop 10 MG Oral hen. Tablet (Same as: [Merigold Merigold 10/325] 325/10) Morphine No Notes: Memoria 6-10 (Same l 08:40: as:MORPhin e Sulfate) Acetaminoph 0 No Notes: Do M emoria en 6-10 not exceed l 08:38: 4 gm/day. Brian (Same as: Tylenol) Dextrose 2020-0 No 12.5 gm, Memor ia 50% Syringe 6-10 25 mL, l (D50W) 08:33: Route: IVP, Drug Form: INJ, Dosing Weight 96.364, kg, PRN, PRN Blood Glucose Results, Start date: 12/06/19 3:33:00 CDT, Duration: 30 day, Stop date: 01/05/20 3:32:00 CDT, 0 Glucagon 2020-0 No 1 mg, Memoria 6-10 Route: IM, l 08:33: Drug form: PDR/INJ, PRN, Dosing Weight 96.364, kg, PRN Blood Glucose Results, Start date: 12/06/19 3:33:00 CDT, Duration: 30 day, Stop date: 01/05/20 3:32:00 CDT, 0 Insulin 2020-0 No Notes: Memoria Lispro 6-10 (Same as: l 08:33: Humalog) Roll in palms of hands gently; Do not shake vigorously . WASTE: F/P - Black; E - Municipal Trash Bin Stable for 28 days at room temperatur e. Expires in days from ____Date Dextrose 2020-0 No 25 mL, Memoria 50% Syringe 6-10 Route: l (D50W) 08:25: IVP, Dosing Weight 96.364, kg, PRN, PRN Blood Glucose Results, Start date: 12/06/19 3:25:00 CDT, Duration: 30 day, Stop date: 01/05/20 3:24:00 CDT Glucagon 2020-0 No 1 mg, Memoria 6-10 Route: IM, l 08:25: PRN, Dosing Weight 96.364, kg, PRN Blood Glucose Results, Start date: 12/06/19 3:25:00 CDT, Duration: 30 day, Stop date: 01/05/20 3:24:00 CDT Ondansetron 2019-0 No Notes: Jacinto margarita 6-10 (Same as: l 08:25: Zofran) MEDICATION WASTE Product Size: 4 mg Product Wasted: ___ mg Acetaminoph 2020-0 No Notes: Do M emoria en 6-10 not exceed l 08:25: 4 gm/day. (Same as: Tylenol) Omnipaque 2020-0 No 80 mL, Memori a 350 6-10 Route: IV, l 04:49: Dosing Weight 96.364, kg, ONCE, Start date: 12/05/19 23:49:00 CDT, Stop date: 12/05/19 23:49:00 CDT Sodium 2020-0 No 1,000 mL, Memori a Chloride 6-10 Infuse l 0.9% 04:38: Over: 1 [place] (Bolus) IV 00 hr, Route: IV, ONCE, Priority: STAT, Dosing Weight 96.364 kg, Start date: 12/05/19 23:38:00 CDT, Stop date: 12/05/19 23:38:00 CDT Insulin 2020-0 No 10 unit, Memori a regular 6-10 Route: l 04:37: IVP, ONCE, [place] 00 Dosing Weight 96.364, kg, Priority: STAT, Start date: 12/05/19 23:37:00 CDT, Stop date: 12/05/19 23:37:00 CDT Vancomycin 2020-0 No 2001 mg: Me moria 6-10 infuse l 04:14: over 2.5 [place] 00 hours For adult patients only: Round to nearest 250 mg per Medical Staff approval MEDICATION WASTE Product Size: 1000 mg Product Wasted: _0__ mg Zosyn 2020-0 No Notes: Memoria 6-10 (Same as: l 04:14: Zosyn) Brian 00 Dosing based on Piperacill in component MEDICATION WASTE Product Size: 3375 mg Product Wasted: _0__ mg Tylenol 2020-0 No 650 mg, Memoria 6-10 Route: PO, l 04:11: Drug form: Brian 00 TAB, ONCE, Dosing Weight 96.364, kg, Priority: STAT, Start date: 12/05/19 23:11:00 CDT, Stop date: 12/05/19 23:11:00 CDT Cipro 2020-0 No 400 mg, Memoria 6-10 Route: l 03:49: IVPB, Brian 00 ONCE, Dosing Weight 96.364, kg, Priority: STAT, Start date: 12/05/19 22:49:00 CDT, Stop date: 12/05/19 22:49:00 CDT, ABX Indication : Skin/Soft Tissue Infection Flagyl 2020-0 No 500 mg, Memoria 6-10 Route: l 03:49: IVPB, Brian 00 ONCE, Dosing Weight 96.364, kg, Priority: STAT, Start date: 12/05/19 22:49:00 CDT, Stop date: 12/05/19 22:49:00 CDT, ABX Indication : Skin/Soft Tissue Infection Morphine 2020-0 No 4 mg, Memoria 6-10 Route: l 03:38: IVP, ONCE, Dosing Weight 96.364, kg, Priority: STAT, Start date: 12/05/19 22:38:00 CDT, Stop date: 12/05/19 22:38:00 CDT Ondansetron 2019-0 No 4 mg, Memor ia 6-10 Route: l 03:38: IVP, Drug form: INJ, ONCE, Dosing Weight 96.364, kg, Priority: STAT, Start date: 12/05/19 22:38:00 CDT, Stop date: 12/05/19 22:38:00 CDT carvedilol 2019-0 No Notes: Memor ia 6-06 Give with l 02:00: food. (Same As: Coreg) gabapentin 2019-0 No Notes: Memor ia 6-06 (Same as: l 02:00: Neurontin) irbesartan 2019-0 No Notes: Memor ia 6-06 (Same l 02:00: as:Avapro) NIFEdipine 2019-0 No Notes: Memor ia 60 mg oral 6-06 (Same as: l tablet, 02:00: Adalat CC, Herm jose Procardia release XL) Give on empty stomach. Take 1 hour before or 2 hours after meal; "Avoid grapefruit and grapefruit juice". Do not crush Crestor 2020-0 No Notes: Memoria 6-06 (Same As: l 02:00: Crestor) latanoprost 2020-0 No Notes: Jacinto margarita 6-05 Keep l 22:00: refrigerat ed. (Same as:Xalatan ) Opened bottle may be stored at room temperatur e for 6 weeks Humalog 2020-0 No Notes: Memoria 6-05 (Same as: l 14:25: Humalog) Roll in palms of hands gently; Do not shake vigorously . WASTE: F/P - Black; E - Municipal Trash Bin Stable for 28 days at room temperatur e. Expires in days from ____Date Regular 2019-0 No Route: Memoria Insulin, 6-05 SUB-Q, l Human 100 14:00: Drug form: Jason rmann UNT/ML 00 SOLN, Injectable Q12H, Solution Dosing [Humulin R] Weight 103.665, kg, Start date: 12/01/19 9:00:00 CDT, Duration: 30 day, Stop date: 12/30/19 21:00:00 CDT SymlinPen 2019-0 No SymlinPen Mem oria 120 6-05 120, 60 l 14:00: microgram, [place] 00 Route: SUB-Q, Q12H, 12/01/19 9:00:00 CDT, Duration: 30 day, Stop date: 12/30/19 21:00:00 CDT tramadol 2019- Yes 50 mg = 1 Jacinto margarita hydrochlori 6-05 tab, PO, l de 50 MG 13:43: Q6H, PRN Marika nn Oral Tablet 00 Pain, acute pain with cellulitis , X 7 day, # 28 tab, 0 Refill(s), Pharmacy: [facility] clindamycin 2019-0 Yes 300 mg = 1 Memoria 300 mg oral 6-05 cap, PO, l capsule 13:43: Q6H, X 10 Marika nn 00 day, # 40 cap, 0 Refill(s), Pharmacy: [facility] senna 17 mg 2019- Yes 34 mg = 2 M emoria oral tablet 6-05 tab, PO, l 13:43: Daily, X [place] 00 10 day, # 20 tab, 0 Refill(s), Pharmacy: [facility] Alprazolam 2019-0 No Notes: Memor ia 0.25 MG 6-05 With food l Oral Tablet 12:43: or milk Her guzman 00 (Same as: Xanax) Nitroglycer 2019- No Notes: Jacinto margarita in 0.4 MG 6-05 (Same l Sublingual 12:43: as:Nitroqu H ermann Tablet 00 ick, Nitrostat) "Do Not Crush" Sublingual tablet Insulin 2020-0 No Notes: Memoria Lispro 6-05 (Same as: l 04:10: Humalog) Brian 00 Roll in palms of hands gently; Do not shake vigorously . WASTE: F/P - Black; E - Municipal Trash Bin Stable for 28 days at room temperatur e. Expires in days from ____Date Clindamycin 2019-0 No 600 mg, 50 Memoria 6-05 mL, Route: l 02:00: IVPB, Drug form: INJ, ABXQ8H, Dosing Weight 96.364, kg, Start date: 11/30/19 21:00:00 CDT, Duration: 7 day, Stop date: 12/07/19 13:00:00 CDT, ABX Indication : Skin/Soft Tissue Infection, 0 Regular 2020-0 Yes 40 units, Memor ia Insulin, 6-04 SUB-Q, l Human 100 23:09: Q12H, 0 Marika nn UNT/ML 00 Refill(s) Injectable Solution [Humulin R] SymlinPen 2019-0 Yes 60 Memoria 120 6-04 microgram, l 23:09: SUB-Q, [place] 00 Q12H, 0 Refill(s) Rosuvastati 2019-0 Yes 40 mg = 1 M emoria n calcium 6-04 tab, PO, l 40 MG Oral 23:09: Bedtime, # H ermann Tablet 00 30 tab, 0 [Crestor] Refill(s) NIFEdipine 2019-0 Yes 60 mg = 1 Me moria 60 mg oral 6-04 tab, PO, l tablet, 23:09: Bedtime, 0 Herm jose extended 00 Refill(s) release carvedilol 2019-0 Yes 3.125 mg = M emoria 3.125 mg 6-04 1 tab, PO, l oral tablet 23:09: Bedtime, 0 Brian 00 Refill(s) irbesartan 2019-0 Yes 150 mg = 1 M emoria 150 mg oral 6-04 tab, PO, l tablet 23:09: Bedtime, # Marika nn 00 30 tab, 0 Refill(s) Vitamin D3 2019-0 Yes 50,000 Memor ia 50,000 intl 6-04 IntlUnit = l units oral 23:09: 1 cap, PO, H ermann capsule 00 qWeek, # 12 cap, 0 Refill(s) Furosemide 2020-0 Yes See Memoria 20 MG Oral 11-29 Instructio l Tablet 23:09: ns, 1 tab Cody n 00 PO bedtime 4 times per week, 0 Refill(s) Potassium 2020-0 Yes See Memoria Chloride 11-29 Instructio l 23:09: ns, 10 mEq Brian 00 PO bedtime 4 times a week, 0 Refill(s) latanoprost 2019-0 Yes 1 drop, Mem oria 11-29 BOTH EYES, l 23:09: QPM, 0 Brian 00 Refill(s) Methocarbam 2019-0 No 0 Memori a ol 11-29 Refill(s) l 23:09: Brian methocarbam 2019-0 Yes 500 mg = 1 Memoria ol 500 mg 11-29 tab, PO, l oral tablet 23:09: Bedtime, He rmann 00 PRN Headache 6-10, 0 Refill(s) Alprazolam 2019-0 Yes 0.25 mg = Me moria 0.25 MG 11-29 1 tab, PO, l Oral Tablet 23:09: Daily, PRN Brian 00 anxiety, stress, # 20 tab, 0 Refill(s) Nitroglycer 0 Yes 0.4 mg = 1 Memoria in 0.4 MG 11-29 tab, SL, l Sublingual 23:09: Q5Min, PRN H ermann Tablet 00 Chest pain, Give up to 3 doses. Call 911 if pain persists., # 100 tab, 0 Refill(s) Flagyl 0 No Notes: Memoria - (Same as: l 23:00: Flagyl) [place] Avoid alcohol. Docusate 2019-0 No Notes: Memoria 11-29 (Same as: l 22:00: Colace) [place] (Do Not Crush) Acetaminoph No Notes: Jacinto margarita en 325 MG / 11-29 (Same as: l Hydrocodone 21:28: Merigold Marika nn Bitartrate 00 325/5) Do 5 MG Oral not exceed Tablet 4gm/day of [Merigold acetaminop 5/325] hen. Dextrose 0 No 12.5 gm, Memor ia 50% Syringe 6-04 25 mL, l (D50W) 21:27: Route: Brian 00 IVP, Drug Form: INJ, Dosing Weight 96.364, kg, PRN, PRN Blood Glucose Results, Start date: 11/30/19 16:27:00 CDT, Duration: 30 day, Stop date: 12/30/19 16:26:00 CDT, 0 Glucagon 2020-0 No 1 mg, Memoria 6- Route: IM, l 21:27: Drug form: [place] 00 PDR/INJ, PRN, Dosing Weight 96.364, kg, PRN Blood Glucose Results, Start date: 11/30/19 16:27:00 CDT, Duration: 30 day, Stop date: 12/30/19 16:26:00 CDT, 0 Insulin 2020-0 No Notes: Memoria Lispro - (Same as: l 21:27: Humalog) Roll in palms of hands gently; Do not shake vigorously . WASTE: F/P - Black; E - Municipal Trash Bin Stable for 28 days at room temperatur e. Expires in days from ____Date Dextrose 2020-0 No 12.5 gm, Memor ia 50% Syringe 6-04 25 mL, l (D50W) 21:25: Route: IVP, Drug Form: INJ, Dosing Weight 96.364, kg, PRN, PRN Blood Glucose Results, Start date: 11/30/19 16:25:00 CDT, Duration: 30 day, Stop date: 12/30/19 16:24:00 CDT, 0 Glucagon 2020-0 No 1 mg, Memoria 6-04 Route: IM, l 21:25: Drug form: PDR/INJ, PRN, Dosing Weight 96.364, kg, PRN Blood Glucose Results, Start date: 11/30/19 16:25:00 CDT, Duration: 30 day, Stop date: 12/30/19 16:24:00 CDT, 0 Bisacodyl 2020-0 No Notes: Memori a 6-04 (Same As: l 21:25: Dulcolax, Bisco-Lax) Ondansetron 2020-0 No Notes: Jacinto margarita 6-04 (Same as: l 21:25: Zofran) MEDICATION WASTE Product Size: 4 mg Product Wasted: 0 mg Melatonin No Notes: Memori a - (Same as: l 21:25: Melatonin) Acetaminoph No Notes: Do M emoria en 11-29 not exceed l 21:25: 4 gm/day. (Same as: Tylenol) Regular No 7 unit, Memoria Insulin, 11-29 Route: l Human 100 16:39: SUB-Q, Cody n UNT/ML 00 ONCE, Injectable Dosing Solution Weight 96.364, kg, Start date: 11/30/19 11:39:00 CDT, Stop date: 11/30/19 11:39:00 CDT Omnipaque No Notes: Memori a 350 11-29 (Same l 16:39: as:Omnipaq ue 350). WASTE: F/P - Black; E - Municipal Trash Bin BD Normal No Notes: Memori a Saline 11-29 (Same as: l Flush 16:00: BD Posiflush) Sodium No 25 mL, Memoria Chloride 11-29 Route: IV, l 0.9% IV 16:00: Start date: 11/30/19 11:00:00 CDT, Duration: 30 day, Stop date: 12/30/19 10:59:00 CDT, PRN Line Flush, 0 Clindamycin No 600 mg, Mem oria 11-29 Route: l 15:42: IVPB, Brian 00 ONCE, Dosing Weight 96.364, kg, Priority: STAT, Start date: 11/30/19 10:42:00 CDT, Stop date: 11/30/19 10:42:00 CDT, ABX Indication : Skin/Soft Tissue Infection Acetaminoph No Notes: Jacinto margarita en 325 MG / 11-29 (Same as: l Hydrocodone 15:04: Merigold Marika nn Bitartrate 00 325/5) Do 5 MG Oral not exceed Tablet 4gm/day of [Merigold acetaminop 5/325] hen. Sodium 2020-0 No 1,000 mL, Memori a Chloride 6-04 1,000 l 0.9% 15:03: ml/hr, Brian (Bolus) IV 00 Infuse Over: 1 hr, Route: IV, 1,000, Drug form: INJ, ONCE, Priority: STAT, Dosing Weight 96.364 kg, Start date: 11/30/19 10:03:00 CDT, Stop date: 11/30/19 10:03:00 CDT, 0 Acetaminoph 2019- Yes 1 tab, PO, Memoria en 300 MG / 7-10 Q4H, PRN l Codeine 00:52: Pain, X 3 Marika nn Phosphate 00 day, # 18 30 MG Oral tab, 0 Tablet Refill(s) [Tylenol with Codeine #3] Cephalexin 2018- Yes 500 mg = 1 M emoria 500 MG Oral 7-10 cap, PO, l Capsule 00:51: QID, X 7 Cody n [Keflex] 00 day, # 28 cap, 0 Refill(s) Sodium 2018- No 1,000 mL, Memori a Chloride 7-09 Infuse l 0.9% 21:38: Over: 1 [place] (Bolus) IV 00 hr, Route: IV, ONCE, Priority: STAT, Dosing Weight 95.182 kg, Start date: 01/03/19 16:38:00 CDT, Stop date: 01/03/19 16:38:00 CDT Saline 2018- No Notes: Memoria Flush 0.9% 7- (Same as: l 21:38: BD [place] 00 Posiflush) clindamycin 2015- Yes 300 mg = 1 Memoria 300 mg oral 8-25 cap, PO, l capsule 13:23: Q6H, X 10 Marika nn 00 day, # 40 cap, 0 Refill(s) LET topical No 3 mL, Memor ia 8-25 Route: l 12:49: TOP, ONCE, Brian 00 Drug form: GEL, Priority: Stat, Start date: 02/20/16 7:49:00 CDT, Stop date: 02/20/16 7:49:00 CDT Immunizations Ordered Immunization Filled Immunization Date Status Commen ts Source Name Name pneumococcal 2013-05-20 Completed Memorial 23-valent vaccine 15:30:00 Brian Vital Signs Vital Name Observation Time Observation Value Comments Source Temperature Oral (F) 2019-12-13 16:58:00 98.4 F [facility] Brian Heart Rate 2019-12-13 16:58:00 [facility] [place] Respitory Rate 2019-12-13 16:58:00 Memori al [place] Systolic (mm Hg) 2019-12-13 16:58:00 Jacinto rial [place] Diastolic (mm Hg) 2019-12-13 16:58:00 Mem orial [place] Temperature Oral (F) 2019-12-13 13:10:00 98.2 F [facility] Brian Heart Rate 2019-12-13 13:10:00 [facility] [place] Respitory Rate 2019-12-13 13:10:00 Memori al [place] Systolic (mm Hg) 2019-12-13 13:10:00 Jacinto rial Brian Diastolic (mm Hg) 2019-12-13 13:10:00 Mem orial [place] Temperature Oral (F) 2019-12-13 08:20:00 98.8 F [facility] [place] Heart Rate 2019-12-13 08:20:00 [facility] Brian Respitory Rate 2019-12-13 08:20:00 Memori al Brian Systolic (mm Hg) 2019-12-13 08:20:00 Jacinto rial [place] Diastolic (mm Hg) 2019-12-13 08:20:00 Mem orial Brian Height 2019-12-07 01:00:00 160.02 cm [facility] [place] Weight 2019-12-07 01:00:00 [facility] Brian BMI Calculated 2019-12-07 01:00:00 Memori al Brian Height 2019-12-06 03:08:00 160.02 cm [facility] [place] BMI Calculated 2019-12-06 03:08:00 Memori al Brian Weight 2019-12-06 03:08:00 [facility] Brian Systolic (mm Hg) 2019-12-01 12:39:00 Jacinto rial Brian Diastolic (mm Hg) 2019-12-01 12:39:00 Mem orial [place] Respitory Rate 2019-12-01 12:39:00 Memori al [place] Heart Rate 2019-12-01 12:39:00 [facility] Brian Temperature Oral (F) 2019-12-01 12:39:00 98.3 F [facility] [place] Temperature Oral (F) 2019-12-01 08:54:00 98.8 F [facility] Brian Heart Rate 2019-12-01 08:54:00 [facility] Brian Respitory Rate 2019-12-01 08:54:00 Memori al Brian Systolic (mm Hg) 2019-12-01 08:54:00 Jacinto rial Brian Diastolic (mm Hg) 2019-12-01 08:54:00 Mem orial Brian Temperature Oral (F) 2019-12-01 04:40:00 99.3 F [facility] [place] Heart Rate 2019-12-01 04:40:00 [facility] Brian Respitory Rate 2019-12-01 04:40:00 Memori al Brian Systolic (mm Hg) 2019-12-01 04:40:00 Jacinto rial [place] Diastolic (mm Hg) 2019-12-01 04:40:00 Mem orial [place] Height 2019-11-30 23:23:00 160.02 cm [facility] [place] Weight 2019-11-30 23:23:00 [facility] [place] BMI Calculated 2019-11-30 23:23:00 Memori al Brian Height 2019-11-30 14:49:00 157.48 cm [facility] [place] BMI Calculated 2019-11-30 14:49:00 Memori al Brian Weight 2019-11-30 14:49:00 [facility] [place] Respitory Rate 2019-01-04 01:06:00 Memori al [place] Systolic (mm Hg) 2019-01-04 01:06:00 Jacinto rial [place] Diastolic (mm Hg) 2019-01-04 01:06:00 Mem orial Brian Heart Rate 2019-01-04 01:06:00 [facility] [place] Weight 2019-01-03 21:32:00 [facility] [place] Heart Rate 2019-01-03 21:32:00 [facility] [place] Systolic (mm Hg) 2019-01-03 21:32:00 Jacinto rial [place] Diastolic (mm Hg) 2019-01-03 21:32:00 Mem orial [place] Temperature Oral (F) 2019-01-03 21:32:00 98.4 F [facility] [place] Height 2019-01-03 21:32:00 160.02 cm [facility] Brian BMI Calculated 2019-01-03 21:32:00 Memori al Brian Respitory Rate 2019-01-03 21:32:00 Memori al [place] Systolic (mm Hg) 2016-02-20 13:45:00 Jacinto rial Brian Diastolic (mm Hg) 2016-02-20 13:45:00 Mem orial Brian Respitory Rate 2016-02-20 13:45:00 Memori al [place] Heart Rate 2016-02-20 13:45:00 [facility] Brian Temperature Oral (F) 2016-02-20 12:13:00 97.8 F [facility] [place] BMI Calculated 2016-02-20 12:13:00 Memori al [place] Height 2016-02-20 12:13:00 160.02 cm [facility] Brian Weight 2016-02-20 12:13:00 [facility] [place] Systolic (mm Hg) 2016-02-20 12:13:00 Jacinto rial [place] Diastolic (mm Hg) 2016-02-20 12:13:00 Mem orial [place] Heart Rate 2016-02-20 12:13:00 [facility] [place] Respitory Rate 2016-02-20 12:13:00 Memori al [place] Procedures Procedure Date / Time Performed Performing Clinician Sourc e Cholecystectomy 2004-06-13 06:00:00 [facility] Encounters Start End Encounter Admission Attending Care Care Encounter Source Date/Time Date/Time Type Type Clinicians Facility Department ID 2021-10-27 Outpatient [id number] ENCSL REF [id number] ENCSL 14:02:07 2021-11-21 2021-11-21 [id number] [place] 00:00:00 00:00:00 DOMENICA [address] 2021-10-28 2021-11-09 Inpatient 3 MANUEL [place] CVA [id number] ENCSL 19:51:00 11:52:00 LUIS [id number] 2021-10-22 2021-10-28 Inpatient DAYANARA ROBERT [facility] [id number] [place] 00:00:00 00:00:[address] 2021-06-17 2021-06-17 [facility] [id number] [place] 00:00:00 00:00:00 DOMENICA [address] 2021-06-02 2021-06-02 Outpatient [facility] [id number] [place] 00:00:00 00:00:[address] 2021-02-21 2021-02-21 Outpatient CURTIS, [facility] [id number] [place] 00:00:00 00:00:00 DOMENICA [address] 2021-02-18 2021-02-18 Outpatient CURTIS, [facility] [id number] [place] 00:00:00 00:00:00 DOMENICA [address] 2021-01-28 2021-01-28 Outpatient CURTIS, [facility] [id number] [place] 00:00:00 00:00:00 DOMENICA [address] 2021-01-13 2021-01-13 Outpatient CURTIS, [facility] [id number] [place] 00:00:00 00:00:00 DOMENICA [address] 2020-10-15 2020-10-15 Outpatient ROBBEN, [facility] [id number] [place] 00:00:00 00:00:00 SHILA [address] 2020-09-24 2020-09-24 Outpatient [facility] [id number] [place] 00:00:00 00:00:[address] 2020-06-27 2020-07-02 Inpatient KALOLWALA, [facility] [id number] [place] 00:00:00 00:00:00 FAKHRI [address] 2020-06-25 2020-06-25 Outpatient BERNRAD, [facility] [id number] [place] 00:00:00 00:00:00 ALBERTINA [address] 2020-06-25 2020-06-25 Outpatient BERNARD, [facility] [id number] [place] 00:00:00 00:00:00 ALBERTINA [address] 2020-04-19 2020-04-19 Outpatient BERNARD, [facility] [id number] [place] 00:00:00 00:00:00 ALBERTINA [address] 2020-03-14 2020-03-17 Inpatient BERNARD, [facility] [id number] [place] 00:00:00 00:00:00 ALBERTINA [address] 2020-03-12 2020-03-12 Outpatient BERNARD, [facility] [id number] [place] 00:00:00 00:00:00 ALBERTINA [address] 2020-03-11 2020-03-11 Outpatient BALDOMERO, [facility] [id number] [place] 00:00:00 00:00:00 JOSE 0[facility] 2020-03-06 2020-03-06 Outpatient EVER, [facility] [id number] [place] 00:00:00 00:00:00 DOMENICA [address] [facility] 2020-03-06 2020-03-06 Outpatient EVER, [facility] [id number] [place] 00:00:00 00:00:00 DOMENICA 0[facility] 2020-02-05 2020-02-05 Outpatient BALDOMERO, [facility] [id number] [place] 00:00:00 00:00:00 JOSE [address] [facility] 2019-12-30 2020-01-31 Inpatient LESLY, [facility] [id number] [place] 00:00:00 00:00:00 AMITO [address] [facility] 2020-01-17 2020-01-17 Outpatient BALDOMERO, [facility] [id number] [place] 00:00:00 00:00:00 JOSE 085 [facility] 2019-12-22 2019-12-30 Inpatient , [facility] [id number] [place] 00:00:00 00:00:00 SCARLET 0[address] [facility] 2019-12-06 2019-12-13 Inpatient [facility] [id number] Memoria 02:59:45 22:45:00 arabella willson [facility] 2019-12-06 2019-12-13 Inpatient Jade JOE [facility] [id number] Memoria 00:40:00 17:45:00 MAX Dowd l 2019-11-30 2019-12-01 Observatio nullFlavo [facility] [id number] Memoria 14:36:40 16:40:00 everardo willson [facility] 2019-11-30 2019-12-01 Outpatient Jade JOHANSEN [facility] [id number] Memoria 14:37:00 11:40:00 UNA Dowd l 2019-06-02 2019-06-03 Outpatient nullFlavo [facility] [id number] Memoria 13:33:00 05:59:00 r Pedro 08 l [facility] 2019-02-14 2019-02-15 Outpt Diag nullFlavo [facility] [id number] Memoria 20:43:00 04:59:00 Services r Outpatient 07 l [facility] 2019-01-03 2019-01-04 Emergency nullFlavo [facility] [id number] Memoria 21:23:58 01:07:00 r [place] 11 [facility] 2018-08-15 2018-08-16 Outpt Diag nullFlavo [facility] [id number] Memoria 18:26:00 05:59:00 Services r Outpatient 06 l [facility] 2018-06-01 2018-06-02 Outpt Diag nullFlavo [facility] [id number] Memoria 14:45:00 05:59:00 Services r Outpatient 05 l [facility] 2018-05-31 2018-06-01 Outpatient nullFlavo [facility] [id number] Memoria 14:02:00 05:59:00 r [place] 10 [facility] 2018-03-24 2018-03-25 Outpt Diag nullFlavo [facility] [id number] Memoria 14:51:00 04:59:00 Services r Outpatient 04 l [facility] 2017-01-18 2017-01-19 Outpt Diag nullFlavo [facility] [id number] Memoria 15:49:00 04:59:00 Services r Outpatient 03 l [facility] 2016-09-30 2016-10-01 Outpt Diag nullFlavo [facility] [id number] Memoria 18:58:00 04:59:00 Services r Outpatient 02 l [facility] 2016-09-17 2016-09-18 Outpt Diag nullFlavo [facility] [id number] Memoria 19:43:00 04:59:00 Services r Outpatient 01 l [facility] 2016-02-20 2016-02-20 [facility] [id number] Memoria 12:06:00 14:47:00 r [place] 09 [facility] 2015-01-21 2015-01-22 Outpatient nullFlavo [facility] [id number] Memoria 13:05:00 04:59:00 r [place] 08 [facility] Results Test Description Test Time Test Comments Results Result Comments Source SARS-CoV-2 (COVID-19) RNA [Presence] in Respiratory sp ecimen by 2021-10-23 03:08:11 BENNIE with probe detection Test Item Value Reference Range Interpretation Comme nts SARS-CoV-2 (COVID-19) RNA [Presence] in Respiratory specimen by Not detected BENNIE with probe detection (test code = 43661-8) Whether patient is employed in a healthcare setting (test code = Un known 85063-6) Whether the patient has symptoms related to condition of interest U nknown (test code = 90775-0) Whether the patient was hospitalized for condition of interest Unkn own (test code = 62926-2) Whether the patient was admitted to intensive care unit (ICU) for U nknown condition of interest (test code = 22446-8) Whether patient resides in a congregate care setting (test code = U nknown 70518-7) status (test code = 49343-0) Unknown Date and time of symptom onset (test code = 72315-1) Unknown SARS-CoV-2 (COVID-19) RNA [Presence] in Respiratory specimen by BENNIE with probe [id number] 23:32:36 Test Item Value Reference Range Interpretation Comments SARS-CoV-2 (COVID-19) RNA Not detected Not-Detected [Presence] in Respiratory specimen by BENNIE with probe detection (test code = 56408-9) SARS-CoV-2 (COVID-19) RNA [Presence] in Respiratory specimen by BENNIE with probe [id number] 22:54:03 Test Item Value Reference Range Interpretation Comments SARS-CoV-2 (COVID-19) RNA Not detected Not-Detected [Presence] in Respiratory specimen by BENNIE with probe detection (test code = 78608-2) SARS-CoV-2 (COVID-19) RNA [Presence] in Respiratory specimen by BENNIE with probe [id number] 12:55:51 Test Item Value Reference Range Interpretation Comments SARS-CoV-2 (COVID-19) RNA Not detected Not-Detected [Presence] in Respiratory specimen by BENNIE with probe detection (test code = 60208-9) SARS-CoV-2 (COVID-19) RNA [Presence] in Respiratory specimen by BENNIE with probe [id number] 12:51:32 Test Item Value Reference Range Interpretation Comments SARS-CoV-2 (COVID-19) RNA Not detected Not-Detected [Presence] in Respiratory specimen by BENNIE with probe detection (test code = 94899-9) SARS coronavirus 2 RNA [Presence] in Respiratory specimen by BENNIE with probe [id number] 21:12:00 Test Item Value Reference Range Interpretation Comments SARS coronavirus 2 RNA Not detected Not-Detected [Presence] in Respiratory specimen by BENNIE with probe detection (test code = 63982-4) SARS coronavirus 2 RNA [Presence] in Respiratory specimen by BENNIE with probe [id number] 03:36:36 Test Item Value Reference Range Interpretation Comments SARS coronavirus 2 RNA [Presence] in Detected Not-Detected Respiratory specimen by EBNNIE with probe detection (test code = 31788-9) [id number] 08:20:00 Test Item Value Reference Range Interpretation Comments RBC Morph (test code = Normal (12/13/19 3:20 RBC Morph) AM) [id number] 08:20:00 Test Item Value Reference Range Interpretation Comments Large Plt (test code = Large Plt) Slight [id number] 08:20:00 Test Item Value Reference Range Interpretation Comments WBC (test code = WBC) 18.8 3.7-10.4 [id number] 08:20:00 Test Item Value Reference Range Interpretation Comments RBC (test code = RBC) 3.34 4.20-5.40 [id number] 08:20:00 Test Item Value Reference Range Interpretation Comments Hgb (test code = Hgb) 10.9 12.0-16.0 [id number] 08:20:00 Test Item Value Reference Range Interpretation Comments Hct (test code = Hct) 31.7 36.0-48.0 [id number] 08:20:00 Test Item Value Reference Range Interpretation Comments MCV (test code = MCV) 94.9 80.0-98.0 [id number] 08:20:00 Test Item Value Reference Range Interpretation Comments MCH (test code = MCH) 32.7 pg 27.0-31.0 [id number] 08:20:00 Test Item Value Reference Range Interpretation Comments MCHC (test code = MCHC) 34.5 32.0-36.0 [id number] 08:20:00 Test Item Value Reference Range Interpretation Comments RDW (test code = RDW) 14.3 11.5-14.5 [facility] Hospit[id number] 08:20:00 Test Item Value Reference Range Interpretation Comments Platelet (test code = Platelet) 321 133-450 [facility] Hospit[id number] 08:20:00 Test Item Value Reference Range Interpretation Comments MPV (test code = MPV) 7.6 7.4-10.4 [facility]KmvrujeMRHLOCPJYI1649-72-77 08:20:00 Test Item Value Reference Range Interpretation Comments Neutrophils # (test code = Neutrophils 17.3 1.5-8.1 #) [facility]hqwlxzDCCQUITPLR2719-78-33 08:20:00 Test Item Value Reference Range Interpretation Comments Lymphocytes # (test code = Lymphocytes 0.6 1.0-5.5 #) [id number] 08:20:00 Test Item Value Reference Range Interpretation Comments Monocytes # (test code 0.8 See_Comment [Aut omated message] The = Monocytes #) system which generated this result tra nsmitted reference range : <=0.8. The reference r chase was not used to int erpret this result as normal/abnormal . [facility]AwssfioWZDOUZADQU2906-48-59 08:20:00 Test Item Value Reference Range Interpretation Comments Eosinophils # (test code 0.2 See_Comment [A utomated message] The = Eosinophils #) system whic h generated this result tra nsmitted reference range : <=0.5. The reference r chase was not used to int erpret this result as normal/abnormal . [facility] HospitalSjsgofsIEVKRSNSRL8810-36-97 08:20:00 Test Item Value Reference Range Interpretation Comments Segs (test code = Segs) 85.0 45.0-75.0 [place] 218010-06-17 08:20:00 Test Item Value Reference Range Interpretation Comments Bands (test code = 7.0 See_Comment [Automat ed message] The Bands) system which ge nerated this result transmit bright reference range : <=11.0. The reference r chase was not used to interpr et this result as candice l/abnormal. [place] 218010-06-17 08:20:00 Test Item Value Reference Range Interpretation Comments Lymphocytes (test code = Lymphocytes) 3.0 20.0-40.0 [place] 218010-06-17 08:20:00 Test Item Value Reference Range Interpretation Comments Monocytes (test code = Monocytes) 4.0 2.0-12.0 [place] [address]-06-17 08:20:00 Test Item Value Reference Range Interpretation Comments Eosinophils (test code = 1.0 See_Comment [A utomated message] The Eosinophils) system which ge nerated this result tra nsmitted reference range : <=4.0. The reference r chase was not used to int erpret this result as normal/abnormal . [place] [address]-06-17 08:20:00 Test Item Value Reference Range Interpretation Comments Atypical Lymphs (test code = Atypical 0.0 Lymphs) [facility]jzdphhJXWHJIRUKS6941-11-40 22:00:00 Test Item Value Reference Range Interpretation Comments Coronavirus (COVID-19) Not Detected (12/11/19 BENNIE (test code = 5:00 PM) Coronavirus (COVID-19) BENNIE) [facility]2020-06-15 09:03:00 Test Item Value Reference Range Interpretation Comments Glucose Lvl (test code = Glucose Lvl) 127 70-99 [facility]2020-06-15 09:03:00 Test Item Value Reference Range Interpretation Comments BUN (test code = BUN) 8 7-22 [facility]2020-06-15 09:03:00 Test Item Value Reference Range Interpretation Comments Creatinine Lvl (test code = Creatinine 0.90 0.50-1.40 Lvl) [place] 990820-06-15 09:03:00 Test Item Value Reference Range Interpretation Comments Sodium Lvl (test code = Sodium Lvl) 135 135-145 [facility]2020-06-15 09:03:00 Test Item Value Reference Range Interpretation Comments Potassium Lvl (test code = Potassium 3.6 3.5-5.1 Lvl) [facility]2020-06-15 09:03:00 Test Item Value Reference Range Interpretation Comments Chloride Lvl (test code = Chloride Lvl) 102 95-109 [place] 990820-06-15 09:03:00 Test Item Value Reference Range Interpretation Comments CO2 (test code = CO2) 23 24-32 [place] 990820-06-15 09:03:00 Test Item Value Reference Range Interpretation Comments AGAP (test code = AGAP) 13.6 10.0-20.0 [place] [address]-06-15 09:03:00 Test Item Value Reference Range Interpretation Comments Calcium Lvl (test code = Calcium Lvl) 10.1 8.5-10.5 [facility]2020-06-15 09:03:00 Test Item Value Reference Range Interpretation Comments eGFR (test code = eGFR) 71 [facility] HospitalOmrhggyQYCHAISJUD9869-93-70 09:03:00 Test Item Value Reference Range Interpretation Comments RBC Morph (test code = Normal (12/11/19 4:03 RBC Morph) AM) [facility] HospitalAfnqzqzDPMXWQFHKA6816-69-47 09:03:00 Test Item Value Reference Range Interpretation Comments Plt Morph (test code = Normal (12/11/19 4:03 Plt Morph) AM) [facility] HospitalJgzlyflDUDZWIHPIA2232-33-74 09:03:00 Test Item Value Reference Range Interpretation Comments Segs (test code = Segs) 80.0 45.0-75.0 [place] 218010-06-15 09:03:00 Test Item Value Reference Range Interpretation Comments Bands (test code = 9.0 See_Comment [Automat ed message] The Bands) system which ge nerated this result transmit bright reference range : <=11.0. The reference r chase was not used to interpr et this result as candice l/abnormal. [facility] HospitalPvcoosrIWOSPKBDMR8438-00-64 09:03:00 Test Item Value Reference Range Interpretation Comments Lymphocytes (test code = Lymphocytes) 3.0 20.0-40.0 [place] [address]-06-15 09:03:00 Test Item Value Reference Range Interpretation Comments Atypical Lymphs (test code = Atypical 0.0 Lymphs) [place] [address]-06-15 09:03:00 Test Item Value Reference Range Interpretation Comments Monocytes (test code = Monocytes) 8.0 2.0-12.0 [place] 218010-06-15 09:03:00 Test Item Value Reference Range Interpretation Comments Neutrophils # (test code = Neutrophils 16.6 1.5-8.1 #) [facility] HospitalDhvnlaqKAOEZZJOAC5304-97-50 09:03:00 Test Item Value Reference Range Interpretation Comments Lymphocytes # (test code = Lymphocytes 0.6 1.0-5.5 #) [facility] HospitalXcajyrxIJCNHQLLYY9311-61-99 09:03:00 Test Item Value Reference Range Interpretation Comments Monocytes # (test code 1.5 See_Comment [Aut omated message] The = Monocytes #) system which generated this result tra nsmitted reference range : <=0.8. The reference r chase was not used to int erpret this result as normal/abnormal . [facility] HospitalQuhbdulXUSNYHQLXT8783-04-94 09:03:00 Test Item Value Reference Range Interpretation Comments WBC (test code = WBC) 18.6 3.7-10.4 [facility] HospitalBjklcbgWXNMWIHPCQ6125-92-75 09:03:00 Test Item Value Reference Range Interpretation Comments RBC (test code = RBC) 3.49 4.20-5.40 [facility] HospitalQzshrutKKZJXBMJFM3981-78-65 09:03:00 Test Item Value Reference Range Interpretation Comments Hgb (test code = Hgb) 11.4 12.0-16.0 [facility] HospitalWukkarhZPGTDYTKVB6446-30-70 09:03:00 Test Item Value Reference Range Interpretation Comments Hct (test code = Hct) 33.4 36.0-48.0 [facility] HospitalVwxwaqpAIPHELUBWS3160-27-95 09:03:00 Test Item Value Reference Range Interpretation Comments MCV (test code = MCV) 95.8 80.0-98.0 [facility] HospitalElxfwxiROFTXRUBNK3760-68-36 09:03:00 Test Item Value Reference Range Interpretation Comments MCH (test code = MCH) 32.8 pg 27.0-31.0 [facility] HospitalLxtuvepTBNLFSFSLP0250-60-07 09:03:00 Test Item Value Reference Range Interpretation Comments MCHC (test code = MCHC) 34.3 32.0-36.0 [facility] HospitalSxkwhadGVUMWUSQIW2546-73-15 09:03:00 Test Item Value Reference Range Interpretation Comments RDW (test code = RDW) 14.2 11.5-14.5 [facility] HospitalVemfvwtIUUVLYPNVU1512-95-93 09:03:00 Test Item Value Reference Range Interpretation Comments Platelet (test code = Platelet) 351 133-450 [place] 218010-06-15 09:03:00 Test Item Value Reference Range Interpretation Comments MPV (test code = MPV) 8.0 7.4-10.4 [place] [address]-06-14 09:44:00 Test Item Value Reference Range Interpretation Comments Glucose Lvl (test code = Glucose Lvl) 197 70-99 [place] [address]-06-14 09:44:00 Test Item Value Reference Range Interpretation Comments BUN (test code = BUN) 11 7-22 [place] [address]-06-14 09:44:00 Test Item Value Reference Range Interpretation Comments Creatinine Lvl (test code = Creatinine 0.89 0.50-1.40 Lvl) [place] [address]-06-14 09:44:00 Test Item Value Reference Range Interpretation Comments Sodium Lvl (test code = Sodium Lvl) 133 135-145 [place] 990820-06-14 09:44:00 Test Item Value Reference Range Interpretation Comments Potassium Lvl (test code = Potassium 3.6 3.5-5.1 Lvl) [place] 990820-06-14 09:44:00 Test Item Value Reference Range Interpretation Comments Chloride Lvl (test code = Chloride Lvl) 103 95-109 [place] [address]-06-14 09:44:00 Test Item Value Reference Range Interpretation Comments CO2 (test code = CO2) 21 24-32 [place] [address]-06-14 09:44:00 Test Item Value Reference Range Interpretation Comments Calcium Lvl (test code = Calcium Lvl) 9.4 8.5-10.5 [place] [address]-06-14 09:44:00 Test Item Value Reference Range Interpretation Comments AGAP (test code = AGAP) 12.6 10.0-20.0 [place] [address]-06-14 09:44:00 Test Item Value Reference Range Interpretation Comments eGFR (test code = eGFR) 71 [place] [address]-06-14 09:44:00 Test Item Value Reference Range Interpretation Comments WBC (test code = WBC) 17.9 3.7-10.4 [place] [address]-06-14 09:44:00 Test Item Value Reference Range Interpretation Comments RBC (test code = RBC) 3.55 4.20-5.40 [facility] HospitalKyydwtqOUPPEXBRBF4978-93-54 09:44:00 Test Item Value Reference Range Interpretation Comments Hgb (test code = Hgb) 11.5 12.0-16.0 [facility] HospitalBuvogzySWYOSPFQEH7773-14-64 09:44:00 Test Item Value Reference Range Interpretation Comments Hct (test code = Hct) 34.0 36.0-48.0 [facility] HospitalTsaaoboWLJQJFFBXA0898-73-78 09:44:00 Test Item Value Reference Range Interpretation Comments MCV (test code = MCV) 95.8 80.0-98.0 [facility] HospitalNrqsvrfJGJMDOSFGZ0994-57-20 09:44:00 Test Item Value Reference Range Interpretation Comments MCH (test code = MCH) 32.4 pg 27.0-31.0 [facility] HospitalIekryiuAHNFGFBSJK1155-15-37 09:44:00 Test Item Value Reference Range Interpretation Comments MCHC (test code = MCHC) 33.8 32.0-36.0 [facility] HospitalXzmczgyDFCUEYYQUV4795-70-10 09:44:00 Test Item Value Reference Range Interpretation Comments RDW (test code = RDW) 14.3 11.5-14.5 [facility] HospitalWrbutabXOPSZIMRQE6396-84-33 09:44:00 Test Item Value Reference Range Interpretation Comments Platelet (test code = Platelet) 367 133-450 [facility] HospitalXsexpbmZEWERNRMFE0304-46-44 09:44:00 Test Item Value Reference Range Interpretation Comments MPV (test code = MPV) 8.1 7.4-10.4 [facility] HospitalMoevdynDBBEUQUDMP1630-96-24 09:44:00 Test Item Value Reference Range Interpretation Comments Segs (test code = Segs) 89.8 45.0-75.0 [facility] HospitalYwbuilnTCOJXIWZCY7131-25-57 09:44:00 Test Item Value Reference Range Interpretation Comments Lymphocytes (test code = Lymphocytes) 4.5 20.0-40.0 [facility] HospitalEabvlqxPFMSMARHCU2811-22-42 09:44:00 Test Item Value Reference Range Interpretation Comments Monocytes (test code = Monocytes) 4.6 2.0-12.0 [facility] HospitalZaleoyiMOLZOBRAGW3770-16-12 09:44:00 Test Item Value Reference Range Interpretation Comments Eosinophils (test code = 0.5 See_Comment [A utomated message] The Eosinophils) system which ge nerated this result tra nsmitted reference range : <=4.0. The reference r chase was not used to int erpret this result as normal/abnormal . [facility] HospitalIipygbvTRGPNTHQET1314-39-19 09:44:00 Test Item Value Reference Range Interpretation Comments Basophils (test code = 0.6 See_Comment [Aut omated message] The Basophils) system which ge nerated this result tra nsmitted reference range : <=1.0. The reference r chase was not used to int erpret this result as normal/abnormal . [facility] HospitalGaxvmeqFQCDLYNDGH1316-25-09 09:44:00 Test Item Value Reference Range Interpretation Comments Neutrophils # (test code = Neutrophils 16.0 1.5-8.1 #) [facility] HospitalDxsgczzPSDVDHNERG8276-88-06 09:44:00 Test Item Value Reference Range Interpretation Comments Lymphocytes # (test code = Lymphocytes 0.8 1.0-5.5 #) [facility] HospitalZwuwkxhPYGEJYWTHV1321-31-32 09:44:00 Test Item Value Reference Range Interpretation Comments Monocytes # (test code 0.8 See_Comment [Aut omated message] The = Monocytes #) system which generated this result tra nsmitted reference range : <=0.8. The reference r chase was not used to int erpret this result as normal/abnormal . [facility] HospitalGppmrqdROYFXYRCBE8924-56-45 09:44:00 Test Item Value Reference Range Interpretation Comments Eosinophils # (test code 0.1 See_Comment [A utomated message] The = Eosinophils #) system ic h generated this result tra nsmitted reference range : <=0.5. The reference r chase was not used to int erpret this result as normal/abnormal . [facility] HospitalRqnygjpGQZIGJUYPK4027-97-43 09:44:00 Test Item Value Reference Range Interpretation Comments Basophils # (test code 0.1 See_Comment [Aut omated message] The = Basophils #) system which generated this result tra nsmitted reference range : <=0.2. The reference r chase was not used to int erpret this result as normal/abnormal . [facility] [employer] [id number] 09:06:00 Test Item Value Reference Range Interpretation Comments Glucose Lvl (test code = Glucose Lvl) 205 70-99 [facility] [id number] 09:06:00 Test Item Value Reference Range Interpretation Comments BUN (test code = BUN) 10 7-22 [place] 990820-06-13 09:06:00 Test Item Value Reference Range Interpretation Comments Creatinine Lvl (test code = Creatinine 0.91 0.50-1.40 Lvl) [place] [address]-06-13 09:06:00 Test Item Value Reference Range Interpretation Comments Sodium Lvl (test code = Sodium Lvl) 135 135-145 [place] [address]-06-13 09:06:00 Test Item Value Reference Range Interpretation Comments Potassium Lvl (test code = Potassium 4.1 3.5-5.1 Lvl) [place] [address]-06-13 09:06:00 Test Item Value Reference Range Interpretation Comments Chloride Lvl (test code = Chloride Lvl) 103 95-109 [place] [address]-06-13 09:06:00 Test Item Value Reference Range Interpretation Comments CO2 (test code = CO2) 22 24-32 [place] [address]-06-13 09:06:00 Test Item Value Reference Range Interpretation Comments AGAP (test code = AGAP) 14.1 10.0-20.0 [place] 990820-06-13 09:06:00 Test Item Value Reference Range Interpretation Comments Calcium Lvl (test code = Calcium Lvl) 9.9 8.5-10.5 [place] 990820-06-13 09:06:00 Test Item Value Reference Range Interpretation Comments eGFR (test code = eGFR) 69 [place] 218010-06-13 09:06:00 Test Item Value Reference Range Interpretation Comments Eosinophils (test code = 0.1 See_Comment [A utomated message] The Eosinophils) system which nerated this result tra nsmitted reference range : <=4.0. The reference r chase was not used to int erpret this result as normal/abnormal . [place] [address]-06-13 09:06:00 Test Item Value Reference Range Interpretation Comments Basophils (test code = 0.3 See_Comment [Aut omated message] The Basophils) system which ge nerated this result tra nsmitted reference range : <=1.0. The reference r chase was not used to int erpret this result as normal/abnormal . [address]06-13 09:06:00 Test Item Value Reference Range Interpretation Comments Basophils # (test code 0.1 See_Comment [Aut omated message] The = Basophils #) system which generated this result tra nsmitted reference range : <=0.2. The reference r chase was not used to int erpret this result as normal/abnormal . [facility] CenterannGram Stain [id number] 09:06:00 Test Item Value Reference Range Interpretation Comments Gram Stain Report Moderate WBC's Moderate (test code = Gram Gram Positive Cocci In Stain Report) Clusters [facility]: Wound/Abscess w/Gram [id number] 09:06:00 Test Item Value Reference Range Interpretation Comments Culture: Moderate Streptococcus Wound/Abscess anginosus . Few w/Gram Stain (test Staphylococcus Species, Not code = Culture: S. aureus Wound/Abscess w/Gram Stain) [facility] Livoniatococcus iguylchyw1253-94-46 09:06:00 Test Item Value Reference Range Interpretation Comments Streptococcus anginosus Streptococcus (test code = anginosus Streptococcus anginosus) [facility]iscoCulture: [id number] 00:35:00 Test Item Value Reference Range Interpretation Comments Culture: Anaerobic Moderate Prevotella (test code = Culture: bivia Beta Lactamase Anaerobic) Positive [facility] FriscoPrevotella [id number] 00:35:00 Test Item Value Reference Range Interpretation Comments Prevotella bivia (test code Prevotella bivia = Prevotella bivia) [facility] CenterannGram Stain [id number] 00:35:00 Test Item Value Reference Range Interpretation Comments Gram Stain Report Few WBC's Few Gram (test code = Gram Positive Cocci In Stain Report) Chains [facility]isco[facility]: Wound/Abscess w/Gram [id number] 00:35:00 Test Item Value Reference Range Interpretation Comments Culture: Moderate Streptococcus Wound/Abscess anginosus . No w/Gram Stain (test susceptibility performed code = Culture: since these organisms are Wound/Abscess predictably susceptible to w/Gram Stain) penicillin. If patient is penicillin allergic or susceptibility testing for additional antibiotics is clinically warranted please call the laboratory. [facility] FriscoStreptococcus tanjlrado2082-44-24 00:35:00 Test Item Value Reference Range Interpretation Comments Streptococcus anginosus Streptococcus (test code = anginosus Streptococcus anginosus) [facility] HospitalFzibmjdPFNJWHLFEL7613-41-60 09:13:00 Test Item Value Reference Range Interpretation Comments Plt Morph (test code = Normal (12/08/19 4:13 Plt Morph) AM) [facility] HospitalWwkgiuzHVRQLWMYRE5453-24-89 09:13:00 Test Item Value Reference Range Interpretation Comments Basophils (test code = 0.8 See_Comment [Aut omated message] The Basophils) system which ge nerated this result tra nsmitted reference range : <=1.0. The reference r chase was not used to int erpret this result as normal/abnormal . [facility] HospitalDsghqlhTOMIOEYEWC6758-31-15 09:13:00 Test Item Value Reference Range Interpretation Comments Basophils # (test code 0.2 See_Comment [Aut omated message] The = Basophils #) system which generated this result tra nsmitted reference range : <=0.2. The reference r chase was not used to int erpret this result as normal/abnormal . [facility] AND [id number] 05:21:00 Test Item Value Reference Range Interpretation Comments UA Color (test code = Yellow *NA*(12/08/19 UA Color) 12:21 AM) [facility] AND [id number] 05:21:00 Test Item Value Reference Range Interpretation Comments UA Turbidity (test code Slight *ABN*(12/08/19 = UA Turbidity) 12:21 AM) [facility] AND [id number] 05:21:00 Test Item Value Reference Range Interpretation Comments UA Spec Grav (test code = UA Spec 1.025 1 Grav) [facility] AND [id number] 05:21:00 Test Item Value Reference Range Interpretation Comments UA pH (test code = UA pH) 6.0 1 5.0-8.0 [facility] AND [id number] 05:21:00 Test Item Value Reference Range Interpretation Comments UA Protein (test code = UA Protein) 30 mg/dL [facility] AND [id number] 05:21:00 Test Item Value Reference Range Interpretation Comments UA Glucose (test code = UA Glucose) 500 mg/dL [facility]2020-06-12 05:21:00 Test Item Value Reference Range Interpretation Comments UA Ketones (test code = UA Ketones) 20 mg/dL [facility] [id number] 05:21:00 Test Item Value Reference Range Interpretation Comments UA Bili (test code = Negative *NA*(12/08/19 UA Bili) 12:21 AM) [facility] [id number] 05:21:00 Test Item Value Reference Range Interpretation Comments UA Blood (test code = Negative (12/08/19 12:21 UA Blood) AM) [facility] [id number] 05:21:00 Test Item Value Reference Range Interpretation Comments UA Nitrite (test code Negative (12/08/19 12:21 = UA Nitrite) AM) [facility] [id number] 05:21:00 Test Item Value Reference Range Interpretation Comments UA Leuk Est (test Negative (12/08/19 12:21 code = UA Leuk Est) AM) [facility] [id number] 05:21:00 Test Item Value Reference Range Interpretation Comments UA Sq Epi (test code = UA Sq Occasional /LPF Epi) [facility] [id number] 05:21:00 Test Item Value Reference Range Interpretation Comments UA WBC (test code = 4 See_Comment [Automa bright message] The UA WBC) system which ge nerated this result transmit bright reference range : <=5. The reference range was not used to interpr et this result as candice l/abnormal. [facility] [id number] 05:21:00 Test Item Value Reference Range Interpretation Comments UA RBC (test code = 1 See_Comment [Automa bright message] The UA RBC) system which ge nerated this result transmit bright reference range : <=2. The reference range was not used to interpr et this result as candice l/abnormal. [facility] [id number] 05:21:00 Test Item Value Reference Range Interpretation Comments UA Urobilinogen (test code = UA <=1.0 mg/dL 0.1-1.0 Urobilinogen) [facility]iscoBACTERIAL - [id number] 12:36:00 Test Item Value Reference Range Interpretation Comments MRSA by PCR (test Negative (12/06/19 7:36 code = MRSA by PCR) AM) [facility] CenterGood ThingASHLEY [place] [id number] 08:55:00 Test Item Value Reference Range Interpretation Comments Lactic Acid Lvl (test code = Lactic 1.5 0.5-2.2 Acid Lvl) [place] 990820-06-10 04:08:00 Test Item Value Reference Range Interpretation Comments B/C Ratio (test code = B/C Ratio) 14 1 6-25 [place] [address]-06-10 04:08:00 Test Item Value Reference Range Interpretation Comments Total Protein (test code = Total 7.1 6.4-8.4 Protein) [place] 990820-06-10 04:08:00 Test Item Value Reference Range Interpretation Comments Albumin Lvl (test code = Albumin Lvl) 2.2 3.5-5.0 [place] 990820-06-10 04:08:00 Test Item Value Reference Range Interpretation Comments Globulin (test code = Globulin) 4.9 2.7-4.2 [facility] CenterDem[facility] [id number] 04:08:00 Test Item Value Reference Range Interpretation Comments A/G Ratio (test code = A/G Ratio) 0.4 1 0.7-1.6 [facility] CenterDem[facility] [id number] 04:08:00 Test Item Value Reference Range Interpretation Comments ALT (test code = ALT) 19 See_Comment [Auto mated message] The system which ge nerated this result transmit bright reference range : <=65. The reference range was not used to interpr et this result as candice l/abnormal. [facility] CenterDem[facility] [id number] 04:08:00 Test Item Value Reference Range Interpretation Comments AST (test code = AST) 17 See_Comment [Auto mated message] The system which ge nerated this result transmit bright reference range : <=37. The reference range was not used to interpr et this result as candice l/abnormal. [facility]Pro[facility] [id number] 04:08:00 Test Item Value Reference Range Interpretation Comments Alk Phos (test code = Alk Phos) 167 39-136 [facility] CenterDem[facility] [id number] 04:08:00 Test Item Value Reference Range Interpretation Comments Bili Total (test code = Bili Total) 0.7 0.2-1.3 [facility] CenterDem[facility] [id number] 04:08:00 Test Item Value Reference Range Interpretation Comments Lactic Acid Lvl (test code = Lactic 2.5 0.5-2.2 Acid Lvl) [facility] [id number] 04:08:00 Test Item Value Reference Range Interpretation Comments Procalcitonin Lvl (test 1.27 See_Comment [Au tomated message] code = Procalcitonin Lvl) e system which generated this result transmitted ref erence range: <=0.10. The reference range was not used to interpr et this result as normal/abnormal . [facility] Ho[id number] 04:08:00 Test Item Value Reference Range Interpretation Comments PT (test code = PT) 13.1 s 12.0-14.7 [facility] 04:08:00 Test Item Value Reference Range Interpretation Comments INR (test code = INR) 0.99 1 0.85-1.17 [facility] HospitalWrtdfczQDYHLSMUDY1716-18-69 04:08:00 Test Item Value Reference Range Interpretation Comments PTT (test code = PTT) 28.2 s 22.9-35.8 [facility] Ho[id number] 04:08:00 Test Item Value Reference Range Interpretation Comments RBC Morph (test code = Normal (12/05/19 11:08 RBC Morph) PM) [facility]LU1573[facility]29-85 04:08:00 Test Item Value Reference Range Interpretation Comments Plt Morph (test code = Normal (12/05/19 11:08 Plt Morph) PM) [facility] [id number] 04:08:00 Test Item Value Reference Range Interpretation Comments S. aureus (test code = Not Detected (12/05/19 S. aureus) 11:08 PM) [facility] [id number] 04:08:00 Test Item Value Reference Range Interpretation Comments S. epidermidis (test Not Detected (12/05/19 code = S. epidermidis) 11:08 PM) [facility] [id number] 04:08:00 Test Item Value Reference Range Interpretation Comments S. lugdunensis (test Not Detected (12/05/19 code = S. lugdunensis) 11:08 PM) [facility] [id number] 04:08:00 Test Item Value Reference Range Interpretation Comments S. anginosus grp (test Not Detected (12/05/19 code = S. anginosus 11:08 PM) grp) [facility] [id number] 04:08:00 Test Item Value Reference Range Interpretation Comments S. agalactiae (test code Not Detected (12/05/19 = S. agalactiae) 11:08 PM) [facility] [id number] 04:08:00 Test Item Value Reference Range Interpretation Comments S. pneumoniae (test code Not Detected (12/05/19 = S. pneumoniae) 11:08 PM) [facility] [id number] 04:08:00 Test Item Value Reference Range Interpretation Comments S. pyogenes (test code Not Detected (12/05/19 = S. pyogenes) 11:08 PM) [facility] [id number] 04:08:00 Test Item Value Reference Range Interpretation Comments E. faecalis (test code Not Detected (12/05/19 = E. faecalis) 11:08 PM) [facility] [id number] 04:08:00 Test Item Value Reference Range Interpretation Comments E. faecium (test code Not Detected (12/05/19 = E. faecium) 11:08 PM) [facility] [id number] 04:08:00 Test Item Value Reference Range Interpretation Comments Staphylococcus spp. (test Not Detected code = Staphylococcus (12/05/19 11:08 PM) spp.) [facility] [id number] 04:08:00 Test Item Value Reference Range Interpretation Comments Streptococcus spp. (test Not Detected (12/05/19 code = Streptococcus 11:08 PM) spp.) [facility] [id number] 04:08:00 Test Item Value Reference Range Interpretation Comments Listeria spp. (test Not Detected (12/05/19 code = Listeria spp.) 11:08 PM) [facility] [id number] 04:08:00 Test Item Value Reference Range Interpretation Comments mecA Methicillin Not Detected (12/05/19 Resistance (test code = 11:08 PM) mecA Methicillin Resistance) [facility] [id number] 04:08:00 Test Item Value Reference Range Interpretation Comments Andres Vancomycin Not Detected (12/05/19 Resistance (test code = 11:08 PM) Andres Vancomycin Resistance) [facility] [id number] 04:08:00 Test Item Value Reference Range Interpretation Comments vanB Vancomycin Not Detected (12/05/19 Resistance (test code = 11:08 PM) vanB Vancomycin Resistance) [facility] [id number] 09:03:00 Test Item Value Reference Range Interpretation Comments Hgb A1C (test code = Hgb A1C) 13.3 [facility] [id number] 19:29:00 Test Item Value Reference Range Interpretation Comments Lactic Acid Lvl (test code = Lactic 1.2 0.5-2.2 Acid Lvl) [facility] [id number] 15:46:00 Test Item Value Reference Range Interpretation Comments Glucose Lvl (test code = Glucose Lvl) 342 70-99 [facility] [id number] 15:46:00 Test Item Value Reference Range Interpretation Comments BUN (test code = BUN) 14 7-22 [facility] [id number] 15:46:00 Test Item Value Reference Range Interpretation Comments Creatinine Lvl (test code = Creatinine 1.00 0.50-1.40 Lvl) [facility] [id number] 15:46:00 Test Item Value Reference Range Interpretation Comments Sodium Lvl (test code = Sodium Lvl) 135 135-145 [facility] [id number] 15:46:00 Test Item Value Reference Range Interpretation Comments Potassium Lvl (test code = Potassium 4.8 3.5-5.1 Lvl) [facility] [id number] 15:46:00 Test Item Value Reference Range Interpretation Comments Chloride Lvl (test code = Chloride Lvl) 101 95-109 [facility] [id number] 15:46:00 Test Item Value Reference Range Interpretation Comments CO2 (test code = CO2) 24 24-32 [facility] [id number] 15:46:00 Test Item Value Reference Range Interpretation Comments Calcium Lvl (test code = Calcium Lvl) 9.9 8.5-10.5 [facility] [employer] [id number] 15:46:00 Test Item Value Reference Range Interpretation Comments Total Protein (test code = Total 7.3 6.4-8.4 Protein) [facility] Center[facility] [id number] 15:46:00 Test Item Value Reference Range Interpretation Comments Albumin Lvl (test code = Albumin Lvl) 2.9 3.5-5.0 [facility] [employer] [id number] 15:46:00 Test Item Value Reference Range Interpretation Comments ALT (test code = ALT) 26 See_Comment [Auto mated message] The system which ge nerated this result transmit bright reference range : <=65. The reference range was not used to interpr et this result as candice l/abnormal. [facility] [employer] [id number] 15:46:00 Test Item Value Reference Range Interpretation Comments AST (test code = AST) 17 See_Comment [Auto mated message] The system which ge nerated this result transmit bright reference range : <=37. The reference range was not used to interpr et this result as candice l/abnormal. [facility] [employer] [id number] 15:46:00 Test Item Value Reference Range Interpretation Comments Alk Phos (test code = Alk Phos) 120 39-136 [facility] [employer] [id number] 15:46:00 Test Item Value Reference Range Interpretation Comments Bili Total (test code = Bili Total) 0.5 0.2-1.3 [facility] [employer] [id number] 15:46:00 Test Item Value Reference Range Interpretation Comments AGAP (test code = AGAP) 14.8 10.0-20.0 [facility] [employer] [id number] 15:46:00 Test Item Value Reference Range Interpretation Comments B/C Ratio (test code = B/C Ratio) 14 1 6-25 [facility] [employer] [id number] 15:46:00 Test Item Value Reference Range Interpretation Comments Globulin (test code = Globulin) 4.4 2.7-4.2 [facility] [employer] [id number] 15:46:00 Test Item Value Reference Range Interpretation Comments A/G Ratio (test code = A/G Ratio) 0.7 1 0.7-1.6 [facility]2020-06-04 15:46:00 Test Item Value Reference Range Interpretation Comments eGFR (test code = eGFR) 62 [facility]2020-06-04 15:46:00 Test Item Value Reference Range Interpretation Comments Lactic Acid Lvl (test code = Lactic 2.3 0.5-2.2 Acid Lvl) [facility]QztpvmsUHAXEEQNFH9558-10-47 15:46:00 Test Item Value Reference Range Interpretation Comments WBC (test code = WBC) 8.4 3.7-10.4 [facility] HospitalE[id number] 15:46:00 Test Item Value Reference Range Interpretation Comments RBC (test code = RBC) 4.74 4.20-5.40 [facility] HospitalWqckejiBHBXKFGSFD1135-42-30 15:46:00 Test Item Value Reference Range Interpretation Comments Hgb (test code = Hgb) 15.9 12.0-16.0 [place] [id number] 15:46:00 Test Item Value Reference Range Interpretation Comments Hct (test code = Hct) 45.6 36.0-48.0 [facility] HospitalGqdlwraPMZAFYPJQP4509-61-99 15:46:00 Test Item Value Reference Range Interpretation Comments MCV (test code = MCV) 96.3 80.0-98.0 [facility] HospitalLhkboccGCVLCMXHRB3790-74-45 15:46:00 Test Item Value Reference Range Interpretation Comments MCH (test code = MCH) 33.6 pg 27.0-31.0 [facility] HospitalTrkhsuzQYAINPPASJ4863-89-87 15:46:00 Test Item Value Reference Range Interpretation Comments MCHC (test code = MCHC) 34.9 32.0-36.0 [facility] HospitalRieebjqEQZMGOVLEF1119-99-09 15:46:00 Test Item Value Reference Range Interpretation Comments RDW (test code = RDW) 13.4 11.5-14.5 [facility] Hospit[id number] 15:46:00 Test Item Value Reference Range Interpretation Comments Platelet (test code = Platelet) 247 133-450 [facility] HospitalLuctgdvOSUXLRMEPI3701-85-49 15:46:00 Test Item Value Reference Range Interpretation Comments MPV (test code = MPV) 9.3 7.4-10.4 [place] [id number] 15:46:00 Test Item Value Reference Range Interpretation Comments Segs (test code = Segs) 83.0 45.0-75.0 [facility] HospitalAuyjrxxGMKNPNYZYE1740-89-45 15:46:00 Test Item Value Reference Range Interpretation Comments Lymphocytes (test code = Lymphocytes) 8.3 20.0-40.0 [facility] HospitalKomjfbrCMHFWHNONL9084-72-68 15:46:00 Test Item Value Reference Range Interpretation Comments Monocytes (test code = Monocytes) 8.4 2.0-12.0 [facility] HospitalMazfvtzEEKCRELACW2467-38-10 15:46:00 Test Item Value Reference Range Interpretation Comments Basophils (test code = 0.3 See_Comment [Aut omated message] The Basophils) system which ge nerated this result tra nsmitted reference range : <=1.0. The reference r chase was not used to int erpret this result as normal/abnormal . [facility] HospitalCcisuzyRDLPCBJSEZ2440-81-42 15:46:00 Test Item Value Reference Range Interpretation Comments Neutrophils # (test code = Neutrophils 7.0 1.5-8.1 #) [facility] H[id number] 15:46:00 Test Item Value Reference Range Interpretation Comments Lymphocytes # (test code = Lymphocytes 0.7 1.0-5.5 #) [facility] HospitalMwudbgiNBJFBZCWHI9403-97-30 15:46:00 Test Item Value Reference Range Interpretation Comments Monocytes # (test code 0.7 See_Comment [Aut omated message] The = Monocytes #) system which generated this result tra nsmitted reference range : <=0.8. The reference r chase was not used to int erpret this result as normal/abnormal . [facility] CenterDemohour [id number] 21:46:00 Test Item Value Reference Range Interpretation Comments Procalcitonin Lvl <0.05 ng/mL See_Comment [Automate d message] (test code = The system whic h Procalcitonin Lvl) generated this result transmit bright reference range : <=0.10. The reference range was not used to interpret this result as normal/abnormal . [facility] [id number] 21:46:00 Test Item Value Reference Range Interpretation Comments Lactic Acid Lvl (test code = Lactic 1.6 0.5-2.2 Acid Lvl) [facility]2019-07-09 21:46:00 Test Item Value Reference Range Interpretation Comments eGFR (test code = eGFR) 68 [facility]2019-07-09 21:46:00 Test Item Value Reference Range Interpretation Comments AST (test code = AST) 21 See_Comment [Auto mated message] The system which ge nerated this result transmit bright reference range : <=37. The reference range was not used to interpr et this result as candice l/abnormal. [facility]2019-07-09 21:46:00 Test Item Value Reference Range Interpretation Comments Alk Phos (test code = Alk Phos) 131 39-136 [facility]2019-07-09 21:46:00 Test Item Value Reference Range Interpretation Comments Bili Total (test code = Bili Total) 0.5 0.2-1.3 [facility]2019-07-09 21:46:00 Test Item Value Reference Range Interpretation Comments Glucose Lvl (test code = Glucose Lvl) 340 70-99 [facility]2019-07-09 21:46:00 Test Item Value Reference Range Interpretation Comments BUN (test code = BUN) 18 7-22 [facility]2019-07-09 21:46:00 Test Item Value Reference Range Interpretation Comments Creatinine Lvl (test code = Creatinine 0.93 0.50-1.40 Lvl) [facility]2019-07-09 21:46:00 Test Item Value Reference Range Interpretation Comments Albumin Lvl (test code = Albumin Lvl) 3.6 3.5-5.0 [facility]2019-07-09 21:46:00 Test Item Value Reference Range Interpretation Comments ALT (test code = ALT) 35 See_Comment [Auto mated message] The system which ge nerated this result transmit bright reference range : <=65. The reference range was not used to interpr et this result as candice l/abnormal. [facility]2019-07-09 21:46:00 Test Item Value Reference Range Interpretation Comments CO2 (test code = CO2) 28 24-32 [facility]2019-07-09 21:46:00 Test Item Value Reference Range Interpretation Comments Calcium Lvl (test code = Calcium Lvl) 10.7 8.5-10.5 [place] [id number] 21:46:00 Test Item Value Reference Range Interpretation Comments Total Protein (test code = Total 7.7 6.4-8.4 Protein) [facility]2019-07-09 21:46:00 Test Item Value Reference Range Interpretation Comments Sodium Lvl (test code = Sodium Lvl) 134 135-145 [facility]2019-07-09 21:46:00 Test Item Value Reference Range Interpretation Comments Chloride Lvl (test code = Chloride Lvl) 101 95-109 [facility]2019-07-09 21:46:00 Test Item Value Reference Range Interpretation Comments Potassium Lvl (test code = Potassium 4.2 3.5-5.1 Lvl) [facility]2019-07-09 21:46:00 Test Item Value Reference Range Interpretation Comments A/G Ratio (test code = A/G Ratio) 0.9 1 0.7-1.6 [facility]2019-07-09 21:46:00 Test Item Value Reference Range Interpretation Comments Globulin (test code = Globulin) 4.1 2.7-4.2 [facility]2019-07-09 21:46:00 Test Item Value Reference Range Interpretation Comments AGAP (test code = AGAP) 9.2 10.0-20.0 [facility]2019-07-09 21:46:00 Test Item Value Reference Range Interpretation Comments B/C Ratio (test code = B/C Ratio) 19 1 6-25 [facility]2019-07-09 21:46:00 Test Item Value Reference Range Interpretation Comments Lipase Lvl (test code = Lipase Lvl) 131 73-393 [facility] HospitalLgapouxPLQKORADIZ0053-10-10 21:46:00 Test Item Value Reference Range Interpretation Comments Basophils # (test code 0.1 See_Comment [Aut omated message] The = Basophils #) system which generated this result tra nsmitted reference range : <=0.2. The reference r chase was not used to int erpret this result as normal/abnormal . [facility] HospitalSpmcaaoYYRZJHBEHF7408-34-06 21:46:00 Test Item Value Reference Range Interpretation Comments Eosinophils # (test code 0.1 See_Comment [A utomated message] The = Eosinophils #) system whic h generated this result tra nsmitted reference range : <=0.5. The reference r chase was not used to int erpret this result as normal/abnormal . [facility] HospitalAwybushZTSOHGVPKB4276-78-17 21:46:00 Test Item Value Reference Range Interpretation Comments Monocytes # (test code 0.4 See_Comment [Aut omated message] The = Monocytes #) system which generated this result tra nsmitted reference range : <=0.8. The reference r chase was not used to int erpret this result as normal/abnormal . [facility] HospitalEzvqopxABRPKYIKVD1432-67-14 21:46:00 Test Item Value Reference Range Interpretation Comments Lymphocytes # (test code = Lymphocytes 1.8 1.0-5.5 #) [facility] HospitalUiotwbyNGZSWVQSAJ0081-84-10 21:46:00 Test Item Value Reference Range Interpretation Comments Neutrophils # (test code = Neutrophils 4.6 1.5-8.1 #) [facility] HospitalHsfoegfBYAEBSZZNR5938-84-72 21:46:00 Test Item Value Reference Range Interpretation Comments Basophils (test code = 0.6 See_Comment [Aut omated message] The Basophils) system which ge nerated this result tra nsmitted reference range : <=1.0. The reference r chase was not used to int erpret this result as normal/abnormal . [facility] HospitalDvxhofqRZSYULYUVJ1659-99-96 21:46:00 Test Item Value Reference Range Interpretation Comments Eosinophils (test code = 0.9 See_Comment [A utomated message] The Eosinophils) system which ge nerated this result tra nsmitted reference range : <=4.0. The reference r chase was not used to int erpret this result as normal/abnormal . [facility] HospitalAbnatduSKDOAANTKF5147-16-09 21:46:00 Test Item Value Reference Range Interpretation Comments Monocytes (test code = Monocytes) 6.2 2.0-12.0 [facility] HospitalZocvzfsTCNPZDITUR3572-17-97 21:46:00 Test Item Value Reference Range Interpretation Comments Lymphocytes (test code = Lymphocytes) 25.4 20.0-40.0 [facility] HospitalWdbxujwJZTTWZCOFY0515-80-89 21:46:00 Test Item Value Reference Range Interpretation Comments Segs (test code = Segs) 66.9 45.0-75.0 [facility] HospitalEnkmvfyFLFGEOBFKW0528-57-17 21:46:00 Test Item Value Reference Range Interpretation Comments Platelet (test code = Platelet) 277 133-450 [facility] HospitalOwjngzuWVRPGOJIPY9582-47-76 21:46:00 Test Item Value Reference Range Interpretation Comments MPV (test code = MPV) 9.5 7.4-10.4 [facility] HospitalFkqzfsrBXYLUTUKWX6201-06-85 21:46:00 Test Item Value Reference Range Interpretation Comments MCHC (test code = MCHC) 35.4 32.0-36.0 [facility] HospitalVjemhlbMPCVBIHKDD9780-88-85 21:46:00 Test Item Value Reference Range Interpretation Comments RDW (test code = RDW) 13.2 11.5-14.5 [facility] HospitalJzripmgTOZHOFVYVO5287-64-92 21:46:00 Test Item Value Reference Range Interpretation Comments MCV (test code = MCV) 95.2 80.0-98.0 [facility] HospitalOjvctiaMLGZKLRBTQ3014-87-62 21:46:00 Test Item Value Reference Range Interpretation Comments MCH (test code = MCH) 33.8 pg 27.0-31.0 [facility] HospitalHlheawoWBNWWJHZUE6918-08-00 21:46:00 Test Item Value Reference Range Interpretation Comments Hgb (test code = Hgb) 16.8 12.0-16.0 [facility] HospitalNwkquerOOAMTYIOMO2721-26-41 21:46:00 Test Item Value Reference Range Interpretation Comments Hct (test code = Hct) 47.4 36.0-48.0 [facility] HospitalGhjcsuqRUFETCNFPK2179-18-93 21:46:00 Test Item Value Reference Range Interpretation Comments RBC (test code = RBC) 4.98 4.20-5.40 [facility] HospitalMangrysDOHIJVGROJ6918-30-11 21:46:00 Test Item Value Reference Range Interpretation Comments WBC (test code = WBC) 6.9 3.7-10.4 [facility] HospitalNbhlxpwFOUOVJWSTX7719-81-02 21:46:00 Test Item Value Reference Range Interpretation Comments PTT (test code = PTT) 27.0 s 22.9-35.8 [facility] HospitalDftoybiYFVIEJOBUF5801-48-64 21:46:00 Test Item Value Reference Range Interpretation Comments INR (test code = INR) 0.97 1 0.85-1.17 [facility] HospitalDipcwmvPBQKGSXYVU1951-75-44 21:46:00 Test Item Value Reference Range Interpretation Comments PT (test code = PT) 12.7 s 12.0-14.7 [facility] AND [id number] 21:46:00 Test Item Value Reference Range Interpretation Comments UA Nitrite (test code Negative (01/03/19 4:46 = UA Nitrite) PM) [facility] AND [id number] 21:46:00 Test Item Value Reference Range Interpretation Comments UA Leuk Est (test code Small *ABN*(01/03/19 4:46 = UA Leuk Est) PM) [facility] AND [id number] 21:46:00 Test Item Value Reference Range Interpretation Comments UA Protein (test code = UA Protein) 100 mg/dL [facility] AND [id number] 21:46:00 Test Item Value Reference Range Interpretation Comments UA pH (test code = UA pH) 6.0 1 5.0-8.0 [facility] AND [id number] 21:46:00 Test Item Value Reference Range Interpretation Comments UA Mucus (test code = UA Mucus) Few /LPF [facility] AND [id number] 21:46:00 Test Item Value Reference Range Interpretation Comments UA Blood (test code = Negative (01/03/19 4:46 UA Blood) PM) [facility] AND [id number] 21:46:00 Test Item Value Reference Range Interpretation Comments UA Bili (test code = Negative *NA*(01/03/19 UA Bili) 4:46 PM) [facility] AND [id number] 21:46:00 Test Item Value Reference Range Interpretation Comments UA Hyal Cast (test 1 See_Comment [Automat ed message] The code = UA Hyal Cast) system which generated this result transmit bright reference range : <=2. The reference range was not used to interpr et this result as candice l/abnormal. [facility] AND [id number] 21:46:00 Test Item Value Reference Range Interpretation Comments UA WBC (test code = 7 See_Comment [Automa bright message] The UA WBC) system which ge nerated this result transmit bright reference range : <=5. The reference range was not used to interpr et this result as candice l/abnormal. [facility] AND [id number] 21:46:00 Test Item Value Reference Range Interpretation Comments UA RBC (test code = 13 See_Comment [Automa bright message] The UA RBC) system which ge nerated this result transmit bright reference range : <=2. The reference range was not used to interpr et this result as candice l/abnormal. [facility] AND [id number] 21:46:00 Test Item Value Reference Range Interpretation Comments UA Sq Epi (test code = UA Sq Epi) Many /LPF [facility] AND [id number] 21:46:00 Test Item Value Reference Range Interpretation Comments UA Urobilinogen (test code = UA <=1.0 mg/dL 0.1-1.0 Urobilinogen) [facility] AND [id number] 21:46:00 Test Item Value Reference Range Interpretation Comments UA [place] Yeast (test code = UA [place] Few /HPF Yeast) [facility] AND [id number] 21:46:00 Test Item Value Reference Range Interpretation Comments UA Glucose (test code = UA Glucose) 500 mg/dL [facility] AND [id number] 21:46:00 Test Item Value Reference Range Interpretation Comments UA Ketones (test code = UA Negative mg/dL Ketones) [facility] AND [id number] 21:46:00 Test Item Value Reference Range Interpretation Comments UA Color (test code = Yellow *NA*(01/03/19 4:46 UA Color) PM) [facility] AND [id number] 21:46:00 Test Item Value Reference Range Interpretation Comments UA Turbidity (test code Slight *ABN*(01/03/19 = UA Turbidity) 4:46 PM) [facility] AND [id number] 21:46:00 Test Item Value Reference Range Interpretation Comments UA Spec Grav (test code = UA Spec 1.027 1 Grav) [facility]
--- NOTE | 2021-12-04 15:31 | ER ---
Nurse's Notes [facility] Name: Jacy Alvarez Age: 61 yrs Sex: Female : 1960 Arrival Date: 12/04/2021 Time: 15:09 Bed 8 Private MD: Diagnosis: Cellulitis of left upper limb Presentation: 12/04 15:17 Chief complaint: Patient states: L arm redness, swelling, and pain for 4 days. Sent for ll1 r/o blood clot. Site is red, hot to touch. No fever. Would like her L ear checked out due to slight pain also. Coronavirus screen: Vaccine status: Patient reports receiving the 2nd dose of the covid vaccine. Client denies travel out of the [place] in the last 14 days. At this time, the client does not indicate any symptoms associated with coronavirus-19. Ebola Screen: Patient denies travel to an Ebola-affected area in the 21 days before illness onset. Initial Sepsis Screen: Does the patient meet any 2 criteria? No. Patient's initial sepsis screen is negative. Does the patient have a suspected source of infection? Yes: Skin breakdown/wound. Risk Assessment: Do you want to hurt yourself or someone else? Patient reports no desire to harm self or others. Onset of symptoms was November 30, 2021. 15:17 Method Of Arrival: Wheelchair ll1 15:17 Acuity: ROSALIE 3 ll1 Triage Assessment: 15:18 General: Appears uncomfortable, Behavior is cooperative, appropriate for age. Pain: ld1 Complains of pain in left arm Quality of pain is described as aching. Derm: Skin is fragile, Skin is dry, Skin is red, Skin temperature is hot Reports pain. Musculoskeletal: Circulation, motion, and sensation intact. Capillary refill < 3 seconds, Range of motion: limited in left elbow. Historical: - Allergies: 15:18 No Known Allergies; ll1 - PMHx: 15:18 Cerebrovascular accident; diabetes mellitus; Hypercholesterolemia; Hypertensive ll1 disorder; - PSHx: 15:18 colostomy with reversal; ll1 - Immunization history:: Client reports receiving the 2nd dose of the Covid vaccine. - Social history:: Smoking status: Patient denies any tobacco usage or history of. Screenin:26 Abuse screen: Denies threats or abuse. Denies injuries from another. Nutritional ph screening: No deficits noted. Tuberculosis screening: No symptoms or risk factors identified. Fall Risk None identified. Assessment: 16:00 General: Appears in no apparent distress. Behavior is calm, cooperative, appropriate ph for age. Pain: Complains of pain in left arm. Neuro: Level of Consciousness is awake, alert, obeys commands, Oriented to person, place, situation. Cardiovascular: Capillary refill < 3 seconds in bilateral fingers Patient's skin is warm and dry. Respiratory: Airway is patent Respiratory effort is even, unlabored. Derm: Skin is healthy with good turgor, Skin is pink, warm \T\ dry. Musculoskeletal: Swelling present in left arm red and warm to touch. Vital Signs: 15:17 BP 148 / 80; Pulse 88; Resp 17; Temp 98.0; Pulse Ox 97% ; Weight 77.56 kg; Height 5 ft. ll1 3 in. (160.02 cm); Pain 9/10; 17:00 BP 150 / 90; Pulse 90; Resp 19 S; Pulse Ox 99% on R/A; jg9 15:17 Body Mass Index 30.29 (77.56 kg, 160.02 cm) ll1 ED Course: 15:09 Patient arrived in ED. mr 15:18 Triage completed. ll1 15:19 Arm band placed on. ll1 15:22 Rachel Vivar FNP-C is PHCP. kb 15:22 Justino Garcia MD is Attending Physician. kb 15:22 Craig Moreno PA is PHCP. cp 15:35 Patient has correct armband on for positive identification. Bed in low position. Call mh5 light in reach. Side rails up X 1. Adult w/ patient. Warm blanket given. outcomes specialist on. Pulse ox on. NIBP on. 15:36 Concepcion Garcia, ZENAIDA is Primary Nurse. ph 16:25 UPPER EXTREMITY VENOUS UNILATE In Process Unspecified. EDMS 17:26 No provider procedures requiring assistance completed. Patient did not have IV access ph during this emergency room visit. Administered Medications: 17:40 Drug: Cephalexin 500 mg Route: PO; jg9 17:46 Follow up: Response: No adverse reaction; Medication administered at discharge. jg9 17:40 Drug: Bactrim (trimethoprim-sulfamethoxazole) (160 mg-800 mg (DS) 1 tablet Route: PO; jg9 17:45 Follow up: Response: No adverse reaction; Medication administered at discharge. jg9 Medication: 17:26 VIS not applicable for this client. ph Outcome: 15:31 Patient left the ED. 3 16:44 Discharge ordered by . rod 17:45 Discharged to home via wheelchair. jg9 17:45 Condition: stable 17:45 Discharge instructions given to patient, family, Instructed on discharge instructions, follow up and referral plans. Demonstrated understanding of instructions, follow-up care, medications, Prescriptions given X 2. 17:46 Patient left the ED. jg9 Signatures: Dispatcher [employer] EDMS Rachel Vivar, SUPERVISOR MACHINE SETTER-C SUPERVISOR MACHINE SETTER-Ckb Melvin, Nereyda easley Concepcion Garcia, RN RN Craig Rangel PA PA cp Martinez, Maria [facility] [place], [place] [id number] Nury Andino RN RN ll1 Adeline Greene RN RN ld1 María Elena Presley RN RN jg9 Corrections: (The following items were deleted from the chart) 15:21 15:17 Chief complaint: Patient states: L arm redness, swelling, and pain for 4 days. ll1 Sent for r/o blood clot. Site is red, hot to touch. No fever. ll1
[2021-12-04 15:41] VITALS: TEMP 98
--- NOTE | 2021-12-04 16:30 | RAD REPORT ---
EXAM DESCRIPTION: US - UPPER EXTREMITY VENOUS UNILATE - 12/04/2021 4:23 pm CLINICAL HISTORY: Left arm pain. COMPARISON: None. FINDINGS: Left internal jugular vein, left subclavian vein, left axillary vein, left brachial vein, left cephalic, left basilic, left ulnar and left radial veins demonstrate phasic signal. The veins are compressible. Doppler demonstrates good flow. . IMPRESSION: No sonographic evidence of thrombus involving the left upper extremity veins.
--- NOTE | 2021-12-04 16:44 | EDPHYS ---
Physician Documentation [facility] Name: Jacy Alvarez Age: 61 yrs Sex: Female : 1960 Arrival Date: 12/04/2021 Time: 15:09 Bed 8 Private MD: ED Physician Justino Garcia HPI: 12/04 18:19 This 61 yrs old Female presents to ER via Wheelchair with complaints of Arm kb Swelling. 18:19 the patient presents with a swollen area of the left forearm and left upper arm. kb Description: erythematous, swollen, warm. Onset: The symptoms/episode began/occurred 4 day(s) ago. Possible cause(s): unknown. Associated signs and symptoms: Pertinent positives: erythema, swelling. Modifying factors: the symptoms are alleviated by nothing, the symptoms are aggravated by nothing. Severity of symptoms: At their worst the symptoms were moderate, in the emergency department the symptoms are unchanged. The patient has not experienced similar symptoms in the past. The patient has not recently seen a physician. Pt reports redness, swelling, and warmth to middle of left arm that started 4 days ago. Came to have a doppler done to make sure she didn't have a blood clot. Historical: - Allergies: 15:18 No Known Allergies; ll1 - PMHx: 15:18 Cerebrovascular accident; diabetes mellitus; Hypercholesterolemia; Hypertensive ll1 disorder; - PSHx: 15:18 colostomy with reversal; ll1 - Immunization history:: Client reports receiving the 2nd dose of the Covid vaccine. - Social history:: Smoking status: Patient denies any tobacco usage or history of. ROS: 18:18 Constitutional: Negative for fever, chills, and weight loss. kb 18:18 Skin: Positive for erythema, swelling, of the left upper arm and left forearm. 18:18 All other systems are negative. Exam: 18:18 Constitutional: This is a well developed, well nourished patient who is awake, alert, kb and in no acute distress. Head/Face: Normocephalic, atraumatic. ENT: Moist Mucous membranes Cardiovascular: Regular rate and rhythm with a normal S1 and S2. No gallops, murmurs, or rubs. No pulse deficits. Respiratory: Respirations even and unlabored. No increased work of breathing. Talking in full sentences MS/ Extremity: Pulses equal, no cyanosis. Neurovascular intact. Full, normal range of motion. Neuro: Awake and alert, GCS 15, oriented to person, place, time, and situation. Moves all extremities. Normal gait. Psych: Awake, alert, with orientation to person, place and time. Behavior, mood, and affect are within normal limits. 18:18 Skin: cellulitis, that is moderate, on the left forearm and left upper arm. Vital Signs: 15:17 BP 148 / 80; Pulse 88; Resp 17; Temp 98.0; Pulse Ox 97% ; Weight 77.56 kg; Height 5 ft. ll1 3 in. (160.02 cm); Pain 9/10; 17:00 BP 150 / 90; Pulse 90; Resp 19 S; Pulse Ox 99% on R/A; jg9 15:17 Body Mass Index 30.29 (77.56 kg, 160.02 cm) ll1 MDM: 15:26 Patient medically screened. kb 18:17 Data reviewed: vital signs, nurses notes. Data interpreted: Pulse oximetry: on room air kb is 99 %. Interpretation: normal. Counseling: I had a detailed discussion with the patient and/or guardian regarding: the historical points, exam findings, and any diagnostic results supporting the discharge/admit diagnosis, radiology results, the need for outpatient follow up, a family practitioner, to return to the emergency department if symptoms worsen or persist or if there are any questions or concerns that arise at home. 12/04 15:36 Order name: UPPER EXTREMITY VENOUS UNILATE; Complete Time: 16:34 EDMS Administered Medications: 17:40 Drug: Cephalexin 500 mg Route: PO; jg9 17:46 Follow up: Response: No adverse reaction; Medication administered at discharge. jg9 17:40 Drug: Bactrim (trimethoprim-sulfamethoxazole) (160 mg-800 mg (DS) 1 tablet Route: PO; jg9 17:45 Follow up: Response: No adverse reaction; Medication administered at discharge. jg9 Disposition: 18:48 Attestation: The patient's history, exam findings, diagnostics, and a summary of any [facility] interventions or procedures was reviewed in detail with Craig MILLAN. Disposition Summary: 12/04/21 16:44 Discharge Ordered Location: Home kb Condition: Stable kb Diagnosis - Cellulitis of left upper limb kb Followup: kb - With: Emergency Department - When: As needed - Reason: Worsening of condition Followup: kb - With: Private Physician - When: 2 - 3 days - Reason: Recheck today's complaints, Continuance of care, Re-evaluation by your physician Discharge Instructions: - Discharge Summary Sheet kb - Cellulitis, Adult, [id number] kb Forms: - Medication Reconciliation Form kb - Thank You Letter kb - Antibiotic Education kb - Prescription Opioid Use kb Prescriptions: - Cephalexin 500 mg Oral Capsule - take 1 capsule by ORAL route every 6 hours for 10 days; 40 capsule; Refills: 0, kb Product Selection Permitted - Bactrim DS 800-160 mg Oral Tablet - take 1 tablet by ORAL route every 12 hours for 10 days; 20 tablet; Refills: 0, kb Product Selection Permitted Signatures: Dispatcher [employer] EDMS Rachel Vivar, KOMAL-C GAME TESTER-[place] [facility] Nury Andino RN RN ll1 María Elena Presley RN RN jg9 Justino Garcia MD MD [id number] Corrections: (The following items were deleted from the chart) 15:33 15:31 before being seen by provider [place] [id number] 15:33 15:31 unknown [place] [id number] 15:36 15:23 Extremity Venous Uni [email or web address] ordered. [facility]
[2021-12-04] MEDS ORDERED: SMZ./TMP. 800/160 MG TABLET ONE (17:34)
[2021-12-04] MEDS ORDERED: CEPHALEXIN 250 MG CAP ONE (17:34)
[2021-12-04 17:52] VITALS: BP 150/90; O2SAT 99
== END 2021-12-04 17:46 | disposition home or self-care (01) ==
LOC: ER 15:06
DX: L03.114 Cellulitis of left upper limb (principal); E11.9 Type 2 diabetes mellitus without complications; I10 Essential (primary) hypertension; Z86.73 Personal history of transient ischemic attack (TIA), and cerebral infarction without residual deficits
CPT/HCPCS: 93971; 99284

== ENCOUNTER 2022-10-18 10:20 | Inpatient (IN) | payer OTHER ==
[2022-10-18] MEDS ORDERED: NA CHLORIDE 0.9% 1,000 ML ONE (11:00)
[2022-10-18] MEDS ORDERED: ONDANSETRON 4 MG/2 ML VIAL ONE ×3 (11:00→16:12)
[2022-10-18 11:26] LABS: Absolute Lymphocytes (CBC) 1.2 K/uL (0.7-4.9); Hematocrit 41.5 % (36.0-45.0); Lymphocytes % 18.3 % (15.3-44.8); MCV 91.1 fL (80-100); MPV 8.3 fL (7.6-11.3); RBC Red Blood Cell Count 4.56 M/uL (3.86-4.86)
[2022-10-18 11:45] LABS: Albumin 2.3 g/dL (3.4-5.0); Bilirubin Total 0.3 mg/dL (0.2-1.0); Potassium 3.6 mEq/L (3.5-5.1); Protein, Total 6.7 g/dL (6.4-8.2); Troponin High Sensitivity 10.7 pg/mL (<58.9)
[2022-10-18 11:51] LABS: Urine Bacteria 20-50 /HPF (<20); Urine Bilirubin NEGATIVE (Negative); Urine Blood 1+ (Negative); Urine Clarity Turbid (Clear); Urine Color Light-Yellow (Yellow); Urine Glucose 4+ (Over) (Negative); Urine Mucus Slight /HPF (None Seen); Urine Protein 3+ (Negative); Urine Urobilinogen Normal (Normal); Urine WBC Clump Few /HPF (None Seen); Urine pH 7.5 (5.0-7.0)
--- NOTE | 2022-10-18 12:37 | RAD REPORT ---
EXAM DESCRIPTION: CTAbdomen Pelvis W Contrast - 10/18/2022 12:30 pm CLINICAL HISTORY: Abdominal pain. ABD PAIN COMPARISON: <Comparisons> TECHNIQUE: Biphasic CT imaging of the abdomen and pelvis was performed with 100 ml non-ionic IV cont rast. All CT scans are performed using dose optimization technique as appropriate and may include automated exposure control or mA/KV adjustment according to patient size. FINDINGS: The lung bases are clear.Cholecystectomy clips. The liver, spleen, pancreas, right adrenal gland and kidneys are within normal limits. 13 mm nodule l eft adrenal gland likely small adenoma. No bowel obstruction, free air, free fluid or abscess. Laxity of the anterior abdominal wall is seen containing fat. Post surgical changes are sigmoid. The appendix is normal. No evidence of significan t lymphadenopathy. Small amount air is present in the urinary bladder. No suspicious bony findings. IMPRESSION: Small amount of air in the urinary bladder could indicate cystitis. Otherwise, no acute process seen.
--- NOTE | 2022-10-18 12:53 | EDPHYS ---
Physician Documentation [facility] Name: Jacy Alvarez Age: 62 yrs Sex: Female : 1960 Arrival Date: 10/18/2022 Time: 10:20 Bed 4 Private MD: ED Physician Godwin Stern HPI: 10/18 11:15 This 62 yrs old Female presents to ER via EMS with complaints of en Nausea/Vomiting. 11:15 62-year-old female with history of hypertension, diabetes, CAD, CVA with residual en left-sided hemiparesis presents to ED with nausea and vomiting since yesterday. She denies fever or chills. No other abdominal pain. She denies dysuria, hematuria. No chest pain, shortness of breath or [place] exertion. Patient reports her glucose prior to arrival was 240.. Historical: - Allergies: 10:25 Sulfa (Sulfonamide Antibiotics); ph - PMHx: 10:25 Cerebrovascular accident; diabetes mellitus; Hypercholesterolemia; Hypertensive ph disorder; - PSHx: 10:25 colostomy with reversal; ph - Immunization history:: Adult Immunizations unknown. - Social history:: Smoking status: Patient denies any tobacco usage or history of. ROS: 11:15 Constitutional: Negative for fever, chills, and weight loss. en 11:15 Cardiovascular: Negative for chest pain, orthopnea, palpitations. 11:15 Respiratory: Negative for cough, hemoptysis, orthopnea, shortness of breath. 11:15 Abdomen/GI: Positive for nausea and vomiting, Negative for abdominal pain. 11:15 : Positive for foul smelling urine, Negative for urinary frequency, burning with urination. 11:15 Skin: Positive for Patient with left-sided sacral decubitus. 11:15 All other systems are negative. Exam: 11:15 Constitutional: Chronically ill, elderly appearing, appears older than stated age but en alert and oriented x3 and cooperative 11:15 Head/face: Residual left-sided facial droop. 11:15 Eyes: Pupils: equal, round, and reactive to light and accomodation, Extraocular movements: intact throughout. 11:15 ENT: Every patent, mucous membranes moist. 11:15 Cardiovascular: Regular rate and rhythm with no murmurs gallops or rubs. No peripheral edema. 11:15 ECG was reviewed by the Attending Physician. 11:15 Respiratory: Clear to auscultation bilaterally with no rhonchi rales or wheezes good air movement without retractions, hypoxia or accessory muscle use. 11:15 Neuro: Patient with residual left-sided hemiparesis and dysarthria but at baseline per en sister. Vital Signs: 10:23 BP 150 / 74; Pulse 93; Resp 18; Temp 97.4; Pulse Ox 100% on R/A; Weight 68.04 kg; Pain ph 0/10; 13:30 BP 163 / 91; Pulse 90; Resp 19; Pulse Ox 98% ; jl7 14:53 BP 185 / 92; Pulse 90; Resp 15; Pulse Ox 95% ; jl7 15:26 BP 184 / 95; Pulse 90; Resp 15; Pulse Ox 96% ; jl7 16:00 BP 155 / 76; Pulse 96; Resp 15; Pulse Ox 97% ; jl7 10:23 Pain Scale: Adult ph MDM: 10:34 Patient medically screened. en 11:15 Differential diagnosis: Nonspecific abd pain, gastritis, cholecystitis, pancreatitis, en appendicitis, diverticulitis, viral gastroenteritis, gastroenteritis, UTI, ACS. Data reviewed: vital signs, nurses notes, lab test result(s), amylase and lipase, cardiac enzymes, CBC, electrolytes, hepatic panel, EKG, radiologic studies, plain films. Historians other than the Patient: Sister reports patient is at baseline mentation. 12:43 Independent interpretation of the following test(s) in the Emergency Department CT en Scan: My interpretation is no appendicitis. management engineer: NSR at 87 bpm. Counseling: I had a detailed discussion with the patient and/or guardian regarding: the historical points, exam findings, and any diagnostic results supporting the discharge/admit diagnosis, the presence of at least one elevated blood pressure reading (>120/80) during this emergency department visit, lab results, radiology results. ED course: Labs reviewed. Patient with a glucose of 324. Will give 8 units of subcu insulin. Will give second liter of IV fluids. No significant evidence of dehydration on electrolytes. Lipase normal, troponin negative, EKG without STEMI or concern for ACS CT consistent with cystitis which correlates with UA. Will give patient IV Rocephin and send urine culture. Patient vomited after CT so we will manage nausea and vomiting. Will admit for UTI, intractable vomiting, dehydration.. 12:46 Consideration of Admission/Observation Patient was admitted/placed on observation. en 12:51 ED course: Patient excepted by Dr. Jaimes. en 10/18 10:53 Order name: CBC with Diff; Complete Time: 11:40 en 10/18 10:53 Order name: CMP; Complete Time: 12:41 en 10/18 10:53 Order name: Lipase; Complete Time: 12:41 en 10/18 10:53 Order name: Urinalysis w/ reflexes; Complete Time: 12:41 en 10/18 10:53 Order name: Troponin High Sensitivity; Complete Time: 12:41 en 10/18 11:55 Order name: Urine Culture EDMS 10/18 12:43 Order name: Urine Culture en 10/18 13:53 Order name: Glucose, Ancillary Testing EDMS 10/18 10:53 Order name: CT Abd/Pelvis - IV Contrast Only; Complete Time: 12:41 en 10/18 10:53 Order name: IV Saline Lock; Complete Time: 11:18 en 10/18 10:53 Order name: Labs collected and sent; Complete Time: 11:18 en 10/18 10:53 Order name: EKG - Nurse/Tech; Complete Time: 11:19 en EC:15 Rate is 91 beats/min. Rhythm is regular. QRS [place] is Normal. Left axis deviation noted. en [place] interval is normal. QRS interval is prolonged at 146 msec. QT interval is normal. Q waves are Present. Q waves are Old in lead III. T waves are Normal. No ST changes noted. Interpreted by me. Administered Medications: 11:18 Drug: NS 0.9% IV 1000 ml Route: IV; Rate: 1 bolus; Site: left antecubital; jl7 12:30 Follow up: Response: No adverse reaction; IV Status: Completed infusion; IV Intake: jl7 1000ml 11:18 Drug: Ondansetron IVP 4 mg Route: IVP; Site: left antecubital; jl7 11:30 Follow up: Response: No adverse reaction; Nausea is decreased jl7 12:51 Drug: Ondansetron IVP 4 mg Route: IVP; Site: left antecubital; ph 13:00 Follow up: Response: No adverse reaction; Nausea is decreased jl7 13:30 Drug: Rocephin IV 1 grams Route: IV; Rate: calculated rate; Site: left antecubital; ph 13:35 Follow up: Response: No adverse reaction; IV Status: Completed infusion jl7 13:48 Not Given (Repeat BGL 270 w/ IV fluids infusingg): Insulin Regular Human Sub-Q 8 units ph Sub-Q once 15:22 Drug: hydrALAZINE IVP 10 mg Route: IVP; Site: left antecubital; jl7 16:00 Follow up: Response: No adverse reaction; Blood pressure is lowered jl7 16:14 Drug: Ondansetron IVP 4 mg Route: IVP; Site: left antecubital; jl7 16:14 Follow up: Response: Administered at [facility] to admit bed jl7 Disposition Summary: 10/18/22 12:53 Hospitalization Ordered Hospitalization Status: Observation en Provider: Akil Jaimes Location: Telemetry/MedSurg (observation) en Condition: Fair en Problem: new en Symptoms: are unchanged en Bed/Room Type: Standard en Room Assignment: 206(10/18/22 15:11) Diagnosis - Acute cystitis en - intractable vomiting en Forms: - Medication Reconciliation Form en - SBAR form en Signatures: Dispatcher [employer] Brigitte Dias RN RN dw Hall, Patricia RN RN Bridget Paula RN RN jl7 Lucita Crenshaw PA PA en Corrections: (The following items were deleted from the chart) 12:47 12:43 ED course: Labs reviewed. Patient with a glucose of 324. Will give 8 units of en subcu insulin. Will give second liter of IV fluids. No significant evidence of dehydration on electrolytes. Lipase normal, troponin negative, EKG without STEMI or concern for ACS CT consistent with cystitis which correlates with UA. Will give patient IV Rocephin and send urine culture. Patient vomited after CT so we will manage nausea and vomiting. If she is able to tolerate p.o., will discharge. en 15:09 12:53 en dw 15:11 15:09 229 dw dw
--- NOTE | 2022-10-18 12:53 | ER ---
Nurse's Notes [facility] [place] [place] [facility] Name: Jacy Alvarez Age: 62 yrs Sex: Female : 1960 Arrival Date: 10/18/2022 Time: 10:20 Bed 4 Private MD: Diagnosis: Acute cystitis;intractable vomiting Presentation: 10/18 10:23 Chief complaint: EMS states: Pt is from home, c/o N/V since Wednesday, VSS, BGL 330 but ph did not take morning medications. Hx of DM and CVA w/ L sided deficits, is non-ambulatory. Coronavirus screen: Vaccine status: Patient reports receiving the 2nd dose of the covid vaccine. Ebola Screen: No symptoms or risks identified at this time. Initial Sepsis Screen: Does the patient meet any 2 criteria? HR > 90 bpm. Does the patient have a suspected source of infection? No. Patient's initial sepsis screen is negative. Risk Assessment: Do you want to hurt yourself or someone else? Patient reports no desire to harm self or others. Onset of symptoms was October 18, 2022. 10:23 Method Of Arrival: EMS: [facility] ph 10:23 Acuity: ROSALIE 3 ph 10:29 Care prior to arrival: Medication(s) given: zofran given IM. ph Triage Assessment: 10:27 General: Appears in no apparent distress. comfortable, Behavior is calm, cooperative, ph appropriate for age. Pain: Denies pain. Neuro: Level of Consciousness is awake, alert, obeys commands, Oriented to person, place, time, situation. Cardiovascular: Capillary refill < 3 seconds in bilateral fingers Patient's skin is warm and dry. Respiratory: Airway is patent Respiratory effort is even, unlabored, Respiratory pattern is regular, symmetrical. GI: Reports nausea, vomiting, Patient currently denies abdominal pain. Derm: Skin is pink, warm \T\ dry. Historical: - Allergies: 10:25 Sulfa (Sulfonamide Antibiotics); ph - PMHx: 10:25 Cerebrovascular accident; diabetes mellitus; Hypercholesterolemia; Hypertensive ph disorder; - PSHx: 10:25 colostomy with reversal; ph - Immunization history:: Adult Immunizations unknown. - Social history:: Smoking status: Patient denies any tobacco usage or history of. Screenin:28 [facility] ED Fall Risk Assessment (Adult) History of falling in the last 3 months, ph including since admission No falls in past 3 months (0 pts). [facility] ED Fall Risk Assessment (Adult) Confusion or Disorientation No (0 pts) Intoxicated or Sedated No (0 pts) Impaired Gait Yes (1 pt) Mobility Assist Device Used Yes (1 pt) Altered Elimination Yes (1 pt). Abuse screen: Denies threats or abuse. Denies injuries from another. Nutritional screening: No deficits noted. Tuberculosis screening: No symptoms or risk factors identified. Assessment: 10:30 General: SEE TRIAGE ASSESSMENT. ph 12:00 Reassessment: Patient appears in no apparent distress at this time. No changes from jl7 previously documented assessment. Patient and/or family updated on plan of care and expected duration. Pain level reassessed. Patient is alert, oriented x 3, equal unlabored respirations, skin warm/dry/pink. 13:00 Reassessment: Patient appears in no apparent distress at this time. No changes from jl7 previously documented assessment. Patient and/or family updated on plan of care and expected duration. Pain level reassessed. Patient is alert, oriented x 3, equal unlabored respirations, skin warm/dry/pink. 14:00 Reassessment: Patient appears in no apparent distress at this time. No changes from jl7 previously documented assessment. Patient and/or family updated on plan of care and expected duration. Pain level reassessed. Patient is alert, oriented x 3, equal unlabored respirations, skin warm/dry/pink. 15:00 Reassessment: Patient appears in no apparent distress at this time. No changes from jl7 previously documented assessment. Patient and/or family updated on plan of care and expected duration. Pain level reassessed. Patient is alert, oriented x 3, equal unlabored respirations, skin warm/dry/pink. 16:14 Reassessment: Pt actively vomiting, VO for 4 mg Zofran IVP, pt medicated as ordered jl7 Patient denies pain at this time. Vital Signs: 10:23 BP 150 / 74; Pulse 93; Resp 18; Temp 97.4; Pulse Ox 100% on R/A; Weight 68.04 kg; Pain ph 0/10; 13:30 BP 163 / 91; Pulse 90; Resp 19; Pulse Ox 98% ; jl7 14:53 BP 185 / 92; Pulse 90; Resp 15; Pulse Ox 95% ; jl7 15:26 BP 184 / 95; Pulse 90; Resp 15; Pulse Ox 96% ; jl7 16:00 BP 155 / 76; Pulse 96; Resp 15; Pulse Ox 97% ; jl7 10:23 Pain Scale: Adult ph ED Course: 10:23 Patient arrived in ED. ph 10:25 Triage completed. ph 10:28 Arm band placed on Patient placed in an exam room, on a stretcher, on telemetry monitor, ph on pulse oximetry. 10:28 Patient has correct armband on for positive identification. Bed in low position. Call ph light in reach. Side rails up X2. Client placed on continuous cardiac and pulse oximetry monitoring. NIBP monitoring applied. Door closed. Noise minimized. Warm blanket given. Pillow given. 10:29 Concepcion Garcia, ZENAIDA is Primary Nurse. ph 10:34 Lucita Crenshaw PA is PHCP. en 10:34 Godwin Stern MD is Attending Physician. en 11:18 Initial lab(s) drawn, by nc, sent to lab. EKG done, by ED staff, reviewed by Lucita MILLAN. Inserted saline lock: 22 gauge in left antecubital area, using aseptic technique. Blood collected. 11:40 Urine collected: straight cath specimen, cloudy, sediment noted. Straight cath jl7 inserted, using sterile technique, 14 Fr. Returned cloudy urine. Patient tolerated poorly. 12:32 CT Abd/Pelvis - IV Contrast Only In Process Unspecified. EDMS 12:51 Akil Jaimes is Hospitalizing Provider. en 15:24 No provider procedures requiring assistance completed. Patient admitted, IV remains in jl7 place. intact, No redness/swelling at site. Administered Medications: 11:18 Drug: NS 0.9% IV 1000 ml Route: IV; Rate: 1 bolus; Site: left antecubital; jl7 12:30 Follow up: Response: No adverse reaction; IV Status: Completed infusion; IV Intake: jl7 1000ml 11:18 Drug: Ondansetron IVP 4 mg Route: IVP; Site: left antecubital; jl7 11:30 Follow up: Response: No adverse reaction; Nausea is decreased jl7 12:51 Drug: Ondansetron IVP 4 mg Route: IVP; Site: left antecubital; ph 13:00 Follow up: Response: No adverse reaction; Nausea is decreased jl7 13:30 Drug: Rocephin IV 1 grams Route: IV; Rate: calculated rate; Site: left antecubital; ph 13:35 Follow up: Response: No adverse reaction; IV Status: Completed infusion jl7 13:48 Not Given (Repeat BGL 270 w/ IV fluids infusingg): Insulin Regular Human Sub-Q 8 units ph Sub-Q once 15:22 Drug: hydrALAZINE IVP 10 mg Route: IVP; Site: left antecubital; jl7 16:00 Follow up: Response: No adverse reaction; Blood pressure is lowered jl7 16:14 Drug: Ondansetron IVP 4 mg Route: IVP; Site: left antecubital; jl7 16:14 Follow up: Response: Administered at [facility] to admit bed jl7 Medication: 10:29 VIS not applicable for this client. ph Intake: 12:30 IV: 1000ml; Total: 1000ml. [facility] Outcome: 12:53 Decision to Hospitalize by Provider. en 15:31 Admitted to Med/surg accompanied by tech, via stretcher, room 206, Report called to melba Ambriz RN 15:31 Condition: stable 15:31 Discharge instructions given to patient, family, Instructed on the need for admit, Demonstrated understanding of instructions. 16:17 Patient left the ED. [facility] Signatures: Dispatcher [employer] Concepcion Payton RN RN Bridget Paula RN RN jl7 Newkirk, Elizabeth, PA PA en Corrections: (The following items were deleted from the chart) 10:27 10:23 Chief complaint: EMS states: Pt is from home, c/o N/V since Wednesday, VSS, BGL 330 ph but did not take morning medications ph
[2022-10-18] MEDS ORDERED: INSULIN -REGULAR HUMAN 50 UNIT/0.5 ML ML ONE (13:08)
[2022-10-18] MEDS ORDERED: CEFTRIAXONE 1000 MG/VIAL ONE (13:08)
[2022-10-18] MEDS ORDERED: NA CHLORIDE 0.9% 50 ML ONE (13:09)
--- NOTE | 2022-10-18 14:51 | P.HP ---
Certification for Inpatient Patient admitted to: Inpatient With expected LOS: >2 Midnights Practitioner: I am a practitioner with admitting privileges, knowledge of patient current condition, hospital course, and medical plan of care. Services: Services provided to patient in accordance with Admission requirements found in Title 42 Section 412.3 of the Code of Federal Regulations Patient History Date of Service: 10/18/22 Reason for admission: Nausea and vomiting History of Present Illness: 63-year-old monitor CVA with left-sided hemiplegia, diabetes mellitus type 2 on insulin therapy, recurrent UTI presented to the emergency department with a complaint of intractable nausea and vomiting of 2 days duration. Family report patient has not been able to hold any food or water in including her medications. At baseline patient is only able to transfer with total assist. She denied any fever but endorsed chills and back pain. She denied any diarrhea or constipation. UA done in the emergency department strongly suggest UTI. No leukocytosis. Patient does not meet criteria for sepsis. CT abdomen and pelvis done and report small amount of air in the urinary bladder could indicate cystitis. She was given a dose of IV Rocephin in the ED. Patient is hospitalized for further management. - Past Medical/Surgical History -: Diabetes mellitus type -: CVA with right hemiplegia -: Hypertension -: Hyperlipidemia -: Recurrent UTI - Family History Mother -: Diabetes - Social History Alcohol use: No CD- Drugs: No Place of Residence: Home Review of Systems Other: Except as documented, all other systems reviewed and negative. Physical Examination - Physical Exam General: Alert, In no apparent distress, Oriented x3 HEENT: Atraumatic, PERRLA, Mucous membr. moist/pink, EOMI, Sclerae nonicteric Neck: Supple, JVD not distended Respiratory: Clear to auscultation bilaterally, Normal air movement Cardiovascular: No edema, Regular rate/rhythm, Normal S1 S2 Capillary refill: <2 Seconds Gastrointestinal: Normal bowel sounds, Soft and benign, Non-distended, No tenderness Musculoskeletal: No swelling, No tenderness, No warmth Integumentary: No cyanosis, Other (Stage I sacral decubitus ulcer) Neurological: Other (Right hemiplegia) Lymphatics: No axilla or inguinal lymphadenopathy - Studies Laboratory Data (last 24 hrs) 10/18/22 11:14: Sodium 134 L, Potassium 3.6, BUN 18, Creatinine 0.79, Glucose 324 H, Total Bilirubin 0.3, AST 20, ALT 18, Alkaline Phosphatase 137 H, Lipase 30 10/18/22 11:14: WBC 6.80, Hgb 13.9, Hct 41.5, Plt Count 460 H Assessment and Plan - Problems (Diagnosis) (1) Acute cystitis with hematuria Current Visit: Yes Status: Acute (2) Intractable nausea and vomiting Current Visit: Yes Status: Acute (3) Diabetes mellitus type 2 in obese Current Visit: Yes Status: Acute (4) History of CVA (cerebrovascular accident) Current Visit: Yes Status: Acute (5) Essential hypertension Current Visit: Yes Status: Acute - Plan Admit patient to the medical floor. Start IV Rocephin Hydrate with IV normal saline. Follow urine culture and blood cultures. Insulin sliding scale for glucose management. Resume home dose Lantus once patient is able to tolerate p.o. Patient states that she has been receiving 4 days of PT sessions at home. PT consult. Reconcile and continue other home medications. - Advance Directives Does patient have a Living Will: No Does patient have a Durable POA for Healthcare: No
[2022-10-18] MEDS ORDERED: HYDRALAZINE HCL 20 MG/ML VIAL ONE ×2 (15:25→15:32)
[2022-10-18] MEDS ORDERED: ONDANSETRON 4 MG/2 ML VIAL IV PRN (16:33)
[2022-10-18] MEDS ORDERED: PROMETHAZINE INJ 25 MG/ML AMP IV PRN (16:34)
[2022-10-18] MEDS: carvediloL 12.5 MG TAB PO SCH (17:11)
[2022-10-18] MEDS: INSULIN -REGULAR HUMAN 50 UNIT/0.5 ML ML SQ SCH ×2 (17:12→21:35)
[2022-10-18 17:40] VITALS: BMI 24.7
[2022-10-18] MEDS: NA CHLORIDE 0.9% 1,000 ML IV SCH (17:49)
[2022-10-18] MEDS: TEMAZEPAM 15 MG CAP PO PRN (21:34)
[2022-10-18] MEDS: ATORVASTATIN 80 MG TAB PO SCH (21:34)
[2022-10-18] MEDS: GABAPENTIN 400 MG CAP PO SCH (21:34)
[2022-10-18] MEDS: TAMSULOSIN 0.4 MG SR CAP PO SCH (21:34)
[2022-10-19 03:37] LABS: Absolute Lymphocytes (CBC) 2.5 K/uL (0.7-4.9); Hematocrit 30.8 % (36.0-45.0); Lymphocytes % 25.8 % (15.3-44.8); MCV 91.4 fL (80-100); MPV 7.9 fL (7.6-11.3); RBC Red Blood Cell Count 3.37 M/uL (3.86-4.86)
[2022-10-19 04:11] LABS: Magnesium 1.3 mg/dL (1.6-2.4); Potassium 2.8 mEq/L (3.5-5.1)
[2022-10-19] MEDS ORDERED: Magnesium Sulfate 2gm IVPB 2 G/50 ML BAG IV ONE (05:11)
[2022-10-19] MEDS: NA CHLORIDE 0.9% 1,000 ML IV SCH (05:30)
[2022-10-19] MEDS: carvediloL 12.5 MG TAB PO SCH ×2 (05:30→17:04)
[2022-10-19] MEDS: POTASS/SODIUM PHOSPHATE 1 PKT POWD.PACK PO SCH ×3 (05:31→09:45)
[2022-10-19] MEDS: KCL 20 MEQ/100 mL IVPB 20 MEQ/100 ML BAG IV SCH ×3 (06:43→11:16)
[2022-10-19] MEDS: ENOXAPARIN 40 MG/0.4 ML SQ SCH (08:25)
[2022-10-19] MEDS: INSULIN -REGULAR HUMAN 50 UNIT/0.5 ML ML SQ SCH ×4 (08:25→20:47)
[2022-10-19] MEDS: VALSARTAN 80 MG TAB PO SCH (08:25)
[2022-10-19] MEDS: GABAPENTIN 400 MG CAP PO SCH ×2 (08:26→20:50)
[2022-10-19] MEDS: SERTRALINE HCL 100 MG TAB PO SCH (08:26)
[2022-10-19] MEDS: CEFTRIAXONE 1,000 MG in NA CHLORIDE 0.9% 50 ML IVPB SCH (08:26)
--- NOTE | 2022-10-19 10:31 | P.PN ---
Subjective Date of Service: 10/19/22 Chief Complaint: Nausea and vomiting Patient has no new complaint. She is resting comfortably. No issues overnight. Physical Examination - Vital Signs Temperature: 97.8 F Blood Pressure: 119/60 Pulse: 65 Respirations: 14 Pulse Ox (%): 92 - Studies Laboratory Data (last 24 hrs) 10/18/22 11:14: Sodium 134 L, Potassium 3.6, BUN 18, Creatinine 0.79, Glucose 324 H, Total Bilirubin 0.3, AST 20, ALT 18, Alkaline Phosphatase 137 H, Lipase 30 10/18/22 11:14: WBC 6.80, Hgb 13.9, Hct 41.5, Plt Count 460 H Assessment And Plan - Current Problems (Diagnosis) (1) Acute cystitis with hematuria Current Visit: Yes Status: Acute (2) Intractable nausea and vomiting Current Visit: Yes Status: Acute (3) Diabetes mellitus type 2 in obese Current Visit: Yes Status: Acute (4) History of CVA (cerebrovascular accident) Current Visit: Yes Status: Acute (5) Essential hypertension Current Visit: Yes Status: Acute - Plan Physical Exam General: Alert, In no apparent distress, Oriented x3 Neck: Supple, JVD not distended Respiratory: Clear to auscultation bilaterally, Normal air movement Cardiovascular: No edema, Regular rate/rhythm, Normal S1 S2 Gastrointestinal: Normal bowel sounds, Soft and benign, Non-distended, No tenderness Musculoskeletal: No swelling, No tenderness, No warmth Integumentary: No cyanosis, Stage I sacral decubitus ulcer Neurological: Right hemiplegia Plan: Urine culture is growing gram-negative rods. Continue IV Rocephin Discontinue IV fluid once patient noted to have good oral intake. Follow urine culture and blood cultures. Insulin sliding scale for glucose management. Resume home dose Lantus insulin. Patient states that she has been receiving 4 days of PT sessions at home. PT. Continue other home medications.
--- NOTE | 2022-10-19 12:28 | EKG ---
Test Date: 2022-10-18 Test Time: 10:59:54 Multineedle Shirrer: JERI MEASUREMENT RESULTS: Intervals: Rate: 91 NE: 152 QRSD: 146 QT: 416 QTc: 511 [place]: P: 72 NE: 152 QRS: -62 T: 40 INTERPRETIVE STATEMENTS: Sinus rhythm Left axis deviation Right bundle branch block Abnormal ECG Left-axis deviation now present Electronically Signed On 10-19-22 12:26:56 CDT by Alexi Washington
--- NOTE | 2022-10-19 19:23 | P.PN ---
Date of Service: 10/20/22 Subjective: Feeling much better this morning Diarrhea ~7 BMs since yesterday no nausea / vomiting back pain - "kidney pain" somewhat better ROS: 10 point ROS as noted above, otherwise negative Physical Exam: Gen: Alert, NAD, AOx3 HEENT: normal conjunctiva, sclera anicteric CV: regular rate & rhythm, no edema Pulm: non-labored respirations on room air, clear bilaterally Abd: soft, non-tender, non-distended Skin: Stage I sacral decubitus ulcer Neuro: Right hemiplegia vitals reviewed Problem List: Acute cystitis with hematuria UTI - Citrobacter Youngae DM2 insulin dependant History of CVA Hypertension Anemia Acute cystitis with hematuria UTI - Citrobacter Youngae CT abdomen 10/18 - Small amount of air in the urinary bladder could indicate cystitis Urine culture 10/18 - growing Citrobacter Youngae, +GNR Continue IV Rocephin Blood cultures pending Discontinue IVF fluid once patient noted to have good oral intake and diarrhea slows down Advance diet as tolerated continue PT DM2 continue sliding scale Resume home dose Lantus insulin History of CVA Hypertension Continue home medications VTE: Lovenox Code: Full Dispo: Home with home health ~24hrs awaiting for diet advancement and improvement of diarrhea
[2022-10-19] MEDS: TEMAZEPAM 15 MG CAP PO PRN (20:46)
[2022-10-19] MEDS: INSULIN GLARGINE 100 UNIT/ML SQ SCH (20:47)
[2022-10-19] MEDS: ATORVASTATIN 80 MG TAB PO SCH (20:49)
[2022-10-19] MEDS: ACETAMINOPHEN 500 MG TAB PO PRN (20:49)
[2022-10-19] MEDS: TAMSULOSIN 0.4 MG SR CAP PO SCH (20:50)
[2022-10-19] MEDS: INSULIN LISPRO 100 UNIT/1 ML SQ SCH (21:00)
[2022-10-20 03:38] LABS: Absolute Lymphocytes (CBC) 2.6 K/uL (0.7-4.9); Hematocrit 29.6 % (36.0-45.0); Lymphocytes % 36.1 % (15.3-44.8); MCV 91.2 fL (80-100); MPV 7.7 fL (7.6-11.3); RBC Red Blood Cell Count 3.25 M/uL (3.86-4.86)
[2022-10-20 03:51] LABS: Magnesium 1.7 mg/dL (1.6-2.4)
[2022-10-20] MEDS: ACETAMINOPHEN 500 MG TAB PO PRN (04:08)
[2022-10-20] MEDS: carvediloL 12.5 MG TAB PO SCH ×2 (05:42→17:03)
[2022-10-20] MEDS ORDERED: MAGNESIUM SULFATE 1 gm IVPB 1 GM/100 ML BAG IV ONE (06:00)
[2022-10-20] MEDS: INSULIN -REGULAR HUMAN 50 UNIT/0.5 ML ML SQ SCH ×4 (07:30→22:16)
[2022-10-20] MEDS: CEFTRIAXONE 1,000 MG in NA CHLORIDE 0.9% 50 ML IVPB SCH (08:17)
[2022-10-20] MEDS: ASPIRIN EC 81 MG TAB PO SCH (08:19)
[2022-10-20] MEDS: VALSARTAN 80 MG TAB PO SCH (08:19)
[2022-10-20] MEDS: SERTRALINE HCL 100 MG TAB PO SCH (08:19)
[2022-10-20] MEDS: GABAPENTIN 400 MG CAP PO SCH ×2 (08:19→22:17)
[2022-10-20] MEDS: ENOXAPARIN 40 MG/0.4 ML SQ SCH (08:19)
[2022-10-20] MEDS ORDERED: SERTRALINE HCL 100 MG TAB PO SCH (09:00)
[2022-10-20] MEDS: TRAMADOL HCL 50 MG TAB PO PRN ×2 (12:16→22:15)
[2022-10-20] MEDS: INSULIN LISPRO 100 UNIT/1 ML SQ SCH ×2 (21:00→22:16)
[2022-10-20] MEDS: INSULIN GLARGINE 100 UNIT/ML SQ SCH (22:16)
[2022-10-20] MEDS: ATORVASTATIN 80 MG TAB PO SCH (22:17)
[2022-10-20] MEDS: TAMSULOSIN 0.4 MG SR CAP PO SCH (22:17)
[2022-10-20] MEDS: TEMAZEPAM 15 MG CAP PO PRN (22:17)
[2022-10-21 03:41] LABS: Hematocrit 34.4 % (36.0-45.0); MPV 8.2 fL (7.6-11.3); RBC Red Blood Cell Count 3.78 M/uL (3.86-4.86)
[2022-10-21 04:21] LABS: Magnesium 2.1 mg/dL (1.6-2.4); Potassium 3.6 mEq/L (3.5-5.1)
[2022-10-21] MEDS ORDERED: GLUCAGON 1 MG/VIAL IM PRN (05:16)
[2022-10-21] MEDS ORDERED: D50W 25 GM/50 ML SYRINGE IV PRN (05:16)
[2022-10-21] MEDS ORDERED: D10W 125 ML IV PRN (05:19)
[2022-10-21] MEDS ORDERED: D10W 250 ML IV ONE (05:25)
[2022-10-21] MEDS: carvediloL 12.5 MG TAB PO SCH ×2 (06:07→16:52)
--- NOTE | 2022-10-21 06:54 | P.PN ---
Date of Service: 10/21/22 Subjective: Feeling better today Diarrhea continues; improving (slightly more formed in PM yesterday) reports having trouble emptying bladder for ~month has not urinated in several hours, despite having sensation to back pain improving glc this morning ROS: 10 point ROS as noted above, otherwise negative Physical Exam: Gen: Alert, NAD, AOx3 HEENT: normal conjunctiva, sclera anicteric CV: regular rate & rhythm, no edema Pulm: non-labored respirations on room air, clear bilaterally Abd: soft, non-tender, non-distended Skin: Stage I sacral decubitus ulcer Neuro: Right hemiplegia vitals reviewed Problem List: Acute cystitis with hematuria UTI - Citrobacter Youngae DM2 insulin dependant History of CVA Hypertension Anemia Acute cystitis with hematuria UTI - Citrobacter Youngae CT abdomen 10/18 - Small amount of air in the urinary bladder could indicate cystitis Urine culture 10/18 - growing Citrobacter Youngae, +GNR Continue IV Rocephin - switched to PO levaquin 10/21 Blood cultures without growth advanced diet reports urinary retention, over last month or so - feels like not emptying bladder completely check pre/post void residual repeat renal function testing in AM continue PT DM2 continue sliding scale Resume home dose Lantus insulin dc'd night-time short acting insulin History of CVA Hypertension Continue home medications VTE: Lovenox Code: Full Dispo: Home with home health ~24hrs improvement of diarrhea; urinary retention
[2022-10-21] MEDS: INSULIN -REGULAR HUMAN 50 UNIT/0.5 ML ML SQ SCH ×4 (08:47→21:32)
[2022-10-21] MEDS: ASPIRIN EC 81 MG TAB PO SCH (08:47)
[2022-10-21] MEDS: GABAPENTIN 400 MG CAP PO SCH ×2 (08:47→21:04)
[2022-10-21] MEDS: levoFLOXacin 750 MG TAB PO SCH (08:47)
[2022-10-21] MEDS: VALSARTAN 80 MG TAB PO SCH (08:47)
[2022-10-21] MEDS: SERTRALINE HCL 100 MG TAB PO SCH (08:47)
[2022-10-21] MEDS: ENOXAPARIN 40 MG/0.4 ML SQ SCH (08:48)
[2022-10-21] MEDS ORDERED: POTASSIUM CL SA 10 MEQ TAB PO ONE (09:00)
[2022-10-21] MEDS: ATORVASTATIN 80 MG TAB PO SCH (21:04)
[2022-10-21] MEDS: TAMSULOSIN 0.4 MG SR CAP PO SCH (21:04)
[2022-10-21] MEDS: TRAMADOL HCL 50 MG TAB PO PRN (21:10)
[2022-10-21] MEDS: TEMAZEPAM 15 MG CAP PO PRN (21:10)
[2022-10-21] MEDS: INSULIN GLARGINE 100 UNIT/ML SQ SCH (21:32)
[2022-10-21 23:38] VITALS: O2SAT 95
[2022-10-22 04:34] LABS: Magnesium 1.6 mg/dL (1.6-2.4); Potassium 4.7 mEq/L (3.5-5.1)
[2022-10-22] MEDS: carvediloL 12.5 MG TAB PO SCH (05:33)
[2022-10-22] MEDS ORDERED: MAGNESIUM SULFATE 1 gm IVPB 1 GM/100 ML BAG IV ONE (06:00)
--- NOTE | 2022-10-22 08:37 | P.DS ---
Admission Date: 10/18/22 Discharge Date: 10/22/22 Disposition: DC HOME/HOME HEALTH CARE Discharge Condition: GOOD Reason for Admission: Nausea and vomiting Brief History of Present Illness: 62yo F, PMH: CVA with left-sided hemiplegia, diabetes mellitus type 2 on insulin therapy, recurrent UTI Patient presented to the emergency department with a complaint of intractable nausea and vomiting of 2 days duration. Family report patient has not been able to hold any food or water in including her medications. At baseline patient is only able to transfer with total assist. She denied any fever but endorsed chills and back pain. She denied any diarrhea or constipation. UA done in the emergency department strongly suggest UTI. No leukocytosis. Patient does not meet criteria for sepsis. CT abdomen and pelvis done and report small amount of air in the urinary bladder could indicate cystitis. She was given a dose of IV Rocephin in the ED. Patient is hospitalized for further management. Hospital Course: Problem List: Acute cystitis with hematuria UTI - Citrobacter Youngae DM2 insulin dependant History of CVA Hypertension Anemia Patient was found to have recurrent urinary tract infection. CT noted findings consistent with cystitis. Blood cultures remain negative, urine culture grew Citrobacter. Patient improved on IV Rocephin and transitioned to oral Levaquin on 10/21, remained afebrile, leukocytosis resolved, symptoms improved. Hospitalization was slightly prolonged secondary to diarrhea and some urinary hesitancy which improved. On day of discharge patient was voiding freely, postvoid residual check on 10/21 was 0 mL. On further discussion with patient and family, reported patient has intermittent loose stool at baseline since her last stroke, slightly more frequency in the last few months. Bowel movements improved during hospitalization as well. Patient was deemed stable for discharge home with, to complete antibiotic course with Levaquin. Follow-up: PCP within 1 week GIin the coming weeks, would likely benefit from EGD and colonoscopy. Reported brief episode of dark brown/black coffee-ground emesis 2 to 3 weeks ago that r esolved. Hemoglobin stable Urology -given the chronic urinary issues and recurrent UTIs will benefit from follow-up Physical Exam: Gen: Alert, NAD, AOx3 HEENT: normal conjunctiva, sclera anicteric CV: regular rate & rhythm, no edema Pulm: non-labored respirations on room air, clear bilaterally Abd: soft, non-tender, non-distended Skin: Stage I sacral decubitus ulcer Neuro: Right hemiplegia Vital Signs/Physical Exam: Temp Pulse Resp BP Pulse Ox 97.6 F 67 14 150/69 H 97 10/22/22 05:32 10/22/22 05:33 10/22/22 05:32 10/22/22 05:33 10/22/22 05:32 Laboratory Data at Discharge: WBC 9.90 thou/uL (4.3-10.9) 10/21/22 02:45 Hgb 11.5 g/dL (12.0-15.0) L D 10/21/22 02:45 Hct 34.4 % (36.0-45.0) L 10/21/22 02:45 Plt Count 474 thou/uL (152-406) H D 10/21/22 02:45 Sodium 133 mEq/L (136-145) L 10/22/22 03:40 Potassium 4.7 mEq/L (3.5-5.1) D 10/22/22 03:40 BUN 18 mg/dL (7-18) 10/22/22 03:40 Creatinine 0.97 mg/dL (0.55-1.02) 10/22/22 03:40 Glucose 199 mg/dL (74-106) H 10/22/22 03:40 Phosphorus 3.0 mg/dL (2.5-4.9) 10/20/22 03:12 Magnesium 1.6 mg/dL (1.6-2.4) 10/22/22 03:40 Total Bilirubin 0.3 mg/dL (0.2-1.0) 10/18/22 11:14 AST 20 U/L (15-37) 10/18/22 11:14 ALT 18 U/L (13-56) 10/18/22 11:14 Alkaline Phosphatase 137 U/L (45-117) H 10/18/22 11:14 Lipase 30 U/L (13-75) 10/18/22 11:14 Home Medications: Aspirin [Aspirin EC 81 MG] 81 mg PO DAILY 10/18/22 Atorvastatin Calcium [Lipitor] 80 mg PO BEDTIME 10/18/22 Carvedilol [Coreg] 12.5 mg PO BID 10/18/22 Furosemide 40 mg PO PRN 10/18/22 Gabapentin 400 mg PO TID 10/18/22 Insulin Glargine,Hum.rec.anlog [Lantus] 23 units SQ BEDTIME 10/18/22 Insulin Lispro [Humalog] 17 units SQ BEDTIME 10/18/22 Irbesartan/Hydrochlorothiazide [Avalide 150-12.5 mg Tablet] 1 tab PO BEDTIME 10/18/22 Metformin ER [Glucophage ER*] 500 mg PO BID 10/18/22 Sertraline [Zoloft*] 100 mg PO DAILY 10/18/22 Tamsulosin [Flomax*] 0.4 mg PO BEDTIME 10/18/22 Temazepam 15 mg PO PRN 10/18/22 Tramadol HCl [Ultram] 50 mg PO PRN 10/18/22 levoFLOXacin [Levaquin*] 750 mg PO DAILY 6 Days #6 tab 10/22/22 New Medications: levoFLOXacin [Levaquin*] 750 mg PO DAILY 6 Days #6 tab Physician Discharge Instructions: Patient was found to have recurrent urinary tract infection. CT noted findings consistent with cystitis. Blood cultures remain negative, urine culture grew Citrobacter. Patient improved on IV Rocephin and transitioned to oral Levaquin on 10/21, remained afebrile, leukocytosis resolved, symptoms improved. Hospitalization was slightly prolonged secondary to diarrhea and some urinary hesitancy which improved. On day of discharge patient was voiding freely, postvoid residual check on 10/21 was 0 mL. On further discussion with patient and family, reported patient has intermittent loose stool at baseline since her last stroke, slightly more frequency in the last few months. Bowel movements improved during hospitalization as well. Patient was deemed stable for discharge home with, to complete antibiotic course with Levaquin. Follow-up: PCP within 1 week GIin the coming weeks, would likely benefit from EGD and colonoscopy. Reported brief episode of dark brown/black coffee-ground emesis 2 to 3 weeks ago that resolved. Hemoglobin stable Urology -given the chronic urinary issues and recurrent UTIs will benefit from follow-up Followup: NONE,NONE [Primary Care Provider] - Time spent managing pt's care (in minutes): 45
[2022-10-22 09:19] VITALS: BP 127/67; TEMP 98
[2022-10-22] MEDS: GABAPENTIN 400 MG CAP PO SCH (09:37)
[2022-10-22] MEDS: ENOXAPARIN 40 MG/0.4 ML SQ SCH (09:37)
[2022-10-22] MEDS: levoFLOXacin 750 MG TAB PO SCH (09:37)
[2022-10-22] MEDS: INSULIN -REGULAR HUMAN 50 UNIT/0.5 ML ML SQ SCH (09:37)
[2022-10-22] MEDS: VALSARTAN 80 MG TAB PO SCH (09:38)
[2022-10-22] MEDS: SERTRALINE HCL 100 MG TAB PO SCH (09:38)
[2022-10-22] MEDS: ASPIRIN EC 81 MG TAB PO SCH (09:38)
== END 2022-10-22 11:15 | disposition home health service (06) | DRG 690 ==
LOC: ER 10:20 → ERHOLD 14:18 → 2ND 15:32
PROVIDERS: ADMIT Internal Medicine; ATTEND Hospitalist
DX: N30.01 Acute cystitis with hematuria (principal); I69.354 Hemiplegia and hemiparesis following cerebral infarction affecting left non-dominant side; I10 Essential (primary) hypertension; E11.9 Type 2 diabetes mellitus without complications; E86.0 Dehydration; L89.151 Pressure ulcer of sacral region, stage 1; E78.00 Pure hypercholesterolemia, unspecified; I25.10 Atherosclerotic heart disease of native coronary artery without angina pectoris; E66.9 Obesity, unspecified; B96.89 Other specified bacterial agents as the cause of diseases classified elsewhere; R33.9 Retention of urine, unspecified; Z88.1 Allergy status to other antibiotic agents; Z93.3 Colostomy status; Z68.24 Body mass index [BMI] 24.0-24.9, adult; Z79.82 Long term (current) use of aspirin; Z79.02 Long term (current) use of antithrombotics/antiplatelets; Z79.4 Long term (current) use of insulin; Z79.84 Long term (current) use of oral hypoglycemic drugs; Z79.899 Other long term (current) drug therapy
CPT/HCPCS: 36415; 51702; 74177; 80048; 80053; 81001; 82947; 83690; 83735; 84100; 84132; 84484; 85025; 85027; 87040; 87077; 87086; 87088; 87186; 93005; 96361; 96374; 96375; 97110; 97161; 97530; 99285; J0360; J0696; J1650; J1815; J2405; J2550; J3475; J3480; J7030; Q9967

== ENCOUNTER 2023-04-09 12:15 | Inpatient (IN) | payer OTHER ==
--- OUTSIDE RECORDS SUMMARY | 2023-04-09 12:53 | XMS REPORT | Continuity of Care Document ---
:1960 Author Organization [facility] t Address [address] [place] [address] Care Team Providers Name Role Phone Domenica Villagran MD Primary Care Physician [phone] Attending Clinician Unavailable LUIS JACKSON ROSHNI Attending Clinician Unavailable Domenica Villagran MD Attending Clinician Karin GUO, Hortencia Kirby Attending Clinician [phone] Jose G Falcon MA Attending Clinician Unavailable Claire Flood MA Attending Clinician Unavailable Noel HENDERSON, Tiana Butler Attending Clinician Artem HENDERSON, Radha Alegria Attending Clinician Pierce Jason MD Attending Clinician Julisa HENDERSON, Nguyen Chaney Attending Clinician Tez HENDERSON, Brett Hoskins Attending Clinician Milly Daniels MD Attending Clinician Dewayne Yung MD Attending Clinician [phone] Charbel HENDERSON, Raj Reardon Attending Clinician [phone] Kassidy HENDERSON, Jeannie Attending Clinician Odette Flannery Attending Clinician Unavailable Claire Flood MA Attending Clinician Unavailable Eb HENDERSON, Magnus Dominguez Attending Clinician Giovanna Rahman MD Attending Clinician Raj Worley Attending Clinician Catherine HENDERSON, Gunjan Attending Clinician Tiffany HENDERSON, Yao Feldman Attending Clinician Bryan RTJustina Attending Clinician Unanasreen Rosas RT, Paula Attending Clinician Unavailable Lisette Mccartney MA Attending Clinician Unavailable SHILA SIBLEY Attending Clinician Unavailable SUSAN SHELL Attending Clinician Unavailable MD ALBERTINA WAGNER Attending Clinician Unavailable ALBERTINA WAGNER Attending Clinician Unavailable JOSE ALEXANDRE Attending Clinician Unavailable MASHA GRACE Attending Clinician Unavailable MD MASHA GRACE Attending Clinician Unavailable SCARLET VERDUZCO Attending Clinician Unavailable MD SCARLET VERDUZCO Attending Clinician Unavailable ALIYA THURMAN Attending Clinician Unavailable Aliya Thurman Attending Clinician VARSHA JOHANSEN Attending Clinician Unavailable Varsha Johansen Attending Clinician Lucinda Razo Attending Clinician Gilda Silver Attending Clinician Hazel Alexandre Attending Clinician Miguelito Osborne Attending Clinician Shazia Roman Attending Clinician Jennifer Garner Attending Clinician Omero Hernandez Attending Clinician [phone] Admitting Clinician Unavailable LUIS JACKSON ROSHNI Admitting Clinician Unavailable RADHA FRIAS Admitting Clinician Unavailable DEWAYNE YUNG Admitting Clinician Unavailable MD MILLY DANIELS Admitting Clinician Unavailable Odette Flannery Admitting Clinician Unavailable Physician, No Primary or Family Admitting Clinician UnavailGIOVANNA Loja Admitting Clinician Unavailable SUSAN SHELL Admitting Clinician Unavailable MD ALBERTINA WAGNER Admitting Clinician Unavailable ALBERTINA WAGNER Admitting Clinician Unavailable MASHA GRACE Admitting Clinician Unavailable JOSE ALEXANDRE Admitting Clinician Unavailable MD MASHA GRACE Admitting Clinician Unavailable SCARLET VERDUZCO Admitting Clinician Unavailable MD SCARLET VERDUZCO Admitting Clinician Unavailable KIA BAUMAN Admitting Clinician Unavailable Kia Bauman Admitting Clinician Payers Payer Name Policy Type Policy Number Effective Date Expiration Date Jo Ann lobo [facility] [id number] Problems Condition Condition Condition Status Onset Resolution Last Treating Co mments Source Name Details Category Date Date Treatment Clinician Date Chorea Chorea Disease Active Methodi 08-27 00:00: Hospita 00 l 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 right 00:00: Hospit a side of side of 00 l brain brain Weakness Weakness Disease Active Metho di 08-05 00:00: Hospita 00 l UTI UTI Disease Active Method[facility] (urinary (urinary 07-31 st tract tract 00:00: Hospita infection) infection) 00 l , , bacterial bacterial Aspiration Aspiration Disease Active M ethodi pneumonia pneumonia 07-01 00:00: Hospita 00 l Acute Acute Disease Active Methodi respirator respirator 07-01 y failure y failure 00:00: Hosp melly with with 00 l hypoxia hypoxia Adrenal Adrenal Disease Active Overview: Meth dana nodule nodule 06-[address] 00:00: g of this Hospita 00 note l might be different from the original. 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 06-28 shirley watson 00:00: Hospita malnutriti malnutriti 00 l on on Acute Acute Disease Active Methodi bacterial bacterial 06-28 conjunctiv conjunctiv 00:00: Ho spita itis of itis of 00 l right eye right eye Acute Acute Disease Active Methodi metabolic metabolic 06-28 encephalop encephalop 00:00: Ho spita athy athy 00 l Conjunctiv Conjunctiv Disease Active M ethodi itis itis 06-28 00:00: Hospita 00 l Physical Physical Disease Active Metho di deconditio deconditio 06-28 jossy jossy 00:00: Hospita 00 l Severe Severe Disease Active 2021-06 Methodi dehydratio dehydratio n n 00:00: Hospita 00 l Colitis Colitis Disease Active 2021-06 Methodi 00:00: Hospita 00 l Hyponatrem Hyponatrem Disease Active 2021-06 M ethodi ia ia 00:00: Hospita 00 l Normocytic Normocytic Disease Active 2021-06 M ethodi anemia anemia 00:00: Hospita 00 l AMY (acute AMY (acute Disease Active 2021-06 M ethodi kidney kidney injury) injury) 00:00: Hospita 00 l Cerebrovas Cerebrovas Disease Active 2021-06 M ethodi cular cular disease disease 00:00: Hospita 00 l History of History of Disease Active 2021-06 M ethodi CVA CVA (cerebrova (cerebrova 00:00: Ho spita scular scular 00 l accident) accident) Chronic Chronic Disease Active Methodi insomnia insomnia 11-21 st 00:00: Hospita 00 l Cerebrovas Cerebrovas Disease Active M ethodi cular cular 11-13 accident accident 00:00: Hospit a (CVA) due (CVA) due 00 l to to thrombosis thrombosis Atrial Atrial Disease Active Methodi fibrillati fibrillati 19 st on on 00:00: Hospita 00 l Stroke Stroke Disease Active Methodi 27 st 00:00: Hospita 00 l Primary Primary Disease Active Methodi osteoarthr osteoarthr 824 st itis itis 00:00: Hospita involving involving 00 l multiple multiple joints joints Abdominal Abdominal Disease Active 2019-06 Met hodi wall wall 2 st abscess abscess 00:00: Hospita 00 l Abscess Abscess Disease Active Methodi 03-17 st 00:00: Hospita 00 l Colostomy Colostomy Disease Active Met hodi in place in place 03-14 00:00: Hospita 00 l Type 2 Type 2 Disease Active Methodi diabetes diabetes 03-06 mellitus mellitus 00:00: Hospit a with with 00 l neurologic neurologic complicati complicati on, with on, with long-term long-term current current use of use of insulin insulin Essential Essential Disease Active Met hodi hypertensi hypertensi 03-06 on, benign on, benign 00:00: Ho spita 00 l Mixed Mixed Disease Active Methodi hyperlipid hyperlipid 03-06 emia emia 00:00: Hospita 00 l 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 03-06 e e 00:00: Hospita neuropathy neuropathy 00 l 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 depression 03-06 00:00: Hospita 00 l Georgie-recta Georgie-recta Disease Active 2019-0 M ethodi l abscess l abscess 01-29 00:00: Hospita 00 l COVID-19 COVID-19 Disease Active Metho di virus virus 12-29 st infection infection 00:00: Hosp melly 00 l Abscess of Abscess of Disease Active 2019-0 M ethodi buttock buttock 12-21 00:00: Hospita 00 l BOIL BOIL Diagnosis Active 2019-12-20 Mem oria Active 12-04 21:53:00 l 12/05/2019 00:00: Cody Webber 00 [facility] ABSCESS ABSCESS Diagnosis Active 2019-11-30 Memoria Active 11-29 14:52:00 l 11/30/2019 00:00: Cody mcgee [place] [address] Hospital PERIRECTAL PERIRECTA Diagnosis Active 2019-12-01 Memoria INFLAMMATI L 11-29 15:20:00 l ON, INFLAMMATI 00:00: Cody mcgee DIABETES ON, 00 MELLIT DIABETES MELLIT Active 11/30/2019 [facility] E83.52 E83.52 Diagnosis Active 2017-062018-05-31 Me moria Active 07-05 08:57:00 l 05/05/2018 00:00: Cody mcgee [address] 252.00 252.00 Diagnosis Active 2015-01-21 Me moria Active 11-27 08:14:00 l 11/27/2014 00:00: Cody mcgee [address] Angina Angina Problem Active 2019-12-18 Jacinto margarita (disorder) (disorder) 07-31 15:54:30 l Active 00:00: Brian 07/31/2013 00 Problem 12/18/2019 Data migrated from [employer] on 11/24/14. [facility] [place],[facility], [facility], [facility] Hyperlipid Hyperlipi Problem Active 2019-12-18 Memoria emia demia 2 15:54:30 l (disorder) (disorder) 00:00: He rmann Active 00 07/31/2013 Problem 12/18/2019 Data migrated from [employer] on 11/24/14. [facility], [facility], [facility] Hypercalce Hypercalc Problem 2018-12-20 Memoria lucas emia 11:27:22 l 12/20/2018 Cody mcgee [facility] Other Other Problem 2018-12-20 Memor ia specified specified 11:27:22 l diseases diseases Cody mcgee of liver of liver 12/20/2018 [facility], [facility] Acquired Acquired Problem 2018-12-20 Memoria absence of absence of 11:27:22 l other other Brian specified specified parts of parts of digestive digestive tract tract 12/20/2018 [facility] Abnormal Abnormal Problem 2018-12-20 Memoria findings findings 11:27:22 l on on [place] diagnostic diagnostic imaging of imaging of liver and liver and biliary biliary tract tract 12/20/2018 [facility] Encounter Problem 2019-06-04 Me moria for Encounter 23:57:44 l screening for Brian mammogram screening for mammogram malignant for neoplasm malignant of breast neoplasm of breast 06/04/2019 [facility] Cholecysti Cholecyst Problem Resolve 2019-12-18 Memoria tis itis d 15:54:30 l (disorder) (disorder) He rmann Resolved Problem 12/18/2019 [facility] [place],[facility], [facility], [facility] Hypertensi Problem Resolve 2019-12-18 Memoria ve Hypertensi d 15:54:30 l disorder, ve [place] systemic disorder, arterial systemic (disorder) arterial (disorder) Resolved Problem 12/18/2019 [facility] [place],[facility], [facility], [facility] Chest pain Chest Problem Active 2019-12-18 M emoria (finding) pain 15:54:30 l (finding) Brian Active Problem 12/18/2019 Data migrated from [employer] on 11/24/14. [facility] [place],[facility], [facility], [facility] Diabetes Diabetes Problem Active 2019-12-18 Memoria mellitus mellitus 15:54:30 l (disorder) (disorder) He rmann Active Problem 12/18/2019 Data migrated from [employer] on 11/24/14. [facility] [place],[facility], [facility], [facility] Essential Essential Problem Active 2019-12-18 Memoria hypertensi hypertensi 15:54:30 l on on [place] (disorder) (disorder) Active Problem 12/18/2019 Data migrated from [employer] on 11/24/14. [facility] [place],[facility], [facility], [facility] Abscess of Abscess Diagnosis Active 2019-12-23 Memoria buttock, of 02:45:21 l right buttock, [place] right Active Diagnosis 12/23/2019 [facility] Morbid Morbid Problem Active 2019-12-23 Mem oria obesity obesity 02:45:21 l due to due to [place] excess excess calories calories Active Problem 12/23/2019 [facility] CELLULITIS CELLULITI Diagnosis Active 2019-12-20 Memoria OF BUTTOCK S OF 21:53:00 l BUTTOCK Brian Active [facility] OTHER OTHER Diagnosis Active 2019-12-01 Mem oria SPECIFIED SPECIFIED 15:20:00 l DISEASES DISEASES Cody n OF ANUS OF ANUS AND REC AND REC Active [facility] TYPE 2 TYPE 2 Diagnosis Active 2019-12-01 Me moria DIABETES DIABETES 15:20:00 l MELLITUS MELLITUS Cody n WITH WITH HYPERGLYCE HYPERGLYCE Active [facility] OTHER OTHER Diagnosis Active 2019-12-01 Me moria SPECIFIED SPECIFIED 15:20:00 l ABNORMAL ABNORMAL Cody n FINDINGS FINDINGS OF BLO OF BLO Active [facility] Obesity Obesity Disease Active [facility]i [facility] Hospita l Cardiac Cardiac Disease Active Methodi microvascu microvascu st [facility] Hospita disease disease l Anxiety Anxiety Disease Active Methodi st Hospita l History of Past Illness Condition Condition Condition Status Onset Resolution Last Treating Co mments Source Name Details Category Date Date Treatment Clinician Date Dorsalgia, Dorsalgia Problem 2019-01-05 2019-01-05 Memoria unspecifie , 01-03 22:42:34 22:42:34 l d unspecifie 17:00: Cody n d 00 01/03/2019 01/05/2019 [facility] Cutaneous Cutaneous Problem 2019-01-05 2019-01-05 Memoria abscess, abscess, 01-03 22:42:34 22:42:34 l unspecifie unspecifie 17:00: He rmann d d 00 01/03/2019 01/05/2019 [facility] Urinary Urinary Problem 2019-01-05 2019-01-05 Memoria tract tract 01-03 22:42:34 22:42:34 l infection, infection, 17:00: He rmann site not site not 00 specified specified 01/03/2019 01/05/2019 [facility] Hyperparat Hyperpara Problem 2017-062018-12-20 2018-12-20 Memoria hyroidism, thyroidism 08-08 11:27:22 11:27:22 l unspecifie , 05:34: Cody n d unspecifie 08 d 06/07/2018 12/20/2018 [facility] [place] Cough Cough Problem 2017-062018-10-11 2018-10-11 M emoria 05/30/2018 2-03 13:40:16 13:40:16 l 10/11/2018 07:04: Cody mcgee OPID 07 [facility] Discharge Discharge Problem 2016-02-23 2016-02-23 [place] Diagnosis: Diagnosis: 02-19 03:22:52 03:22:52 l Abscess Abscess 05:00: Brian and 00 cellulitis cellulitis 02/20/2016 02/23/2016 [facility] Allergies, Adverse Reactions, Alerts Allergy Allergy Status Severity Reaction(s) Onset Inactive Treating Comm ents Source Name Type Date Date Clinician Levoflox Propensi Active Swelling Meth dana acin ty to 10-27 st adverse 00:00: Hospita reaction 00 l s to drug Sulfa DA Active [place] [facility] (Sulfona 03-20 Clear mide 00:00: [place] Antibiot 00 [facility] No Known DA Active [facility] Allergie 03-20 [place] s 00:[facility]: d 00 [facility] No DA Active [facility] Allergy 03-20 [place] Informat 00:[facility]: d ion [facility] Sulfa Propensi Active Unknown Yeast Methodi (Sulfona ty to Reaction 12-[address] mide adverse 00:00: s Hospita Antibiot reaction 00 l ics) s to drug sulfamet sulfamet Active Info Not Jacinto margarita hoxazole hoxazole Available 6-26 l 00:00: Brian 00 sulfa sulfa Active Candidiasis Memor ia drugs drugs (disorder) l Brian Family History Family Member Diagnosis Comments Start Date Stop Date Source Natural father Diabetes [facility] Natural father Stroke [facility] Natural mother Diabetes [facility] Natural mother Stroke [facility] Social History Social Habit Start Date Stop Date Quantity Comments Source History [facility] al History [facility] Gender identity [facility] Alcohol intake 2022-10-27 2022-10-27 Lifetime [facility] 00:00:00 00:00:00 non-drinker Hospital (finding) History of Social 2022-10-27 2022-10-[address] function 00:00:00 00:00:00 Hospital History SDOH 2020-06-25 2020-06-25 1 [facility] Frequency 00:00:00 00:00:00 Hospita l Tobacco use and 2019-12-22 2019-12-22 Smokeless [facility] exposure 00:00:00 00:00:00 tobacco non-user Hospital Sex Assigned At [birth year] [facility] 00:[facility] 00:[facility]:00 Hospital Smoking Status Start Date Stop Date Source Never smoked tobacco [facility] Social History [facility] Medications Ordered Filled Start Stop Current Ordering Indication Dosage Frequency Signature Comments Components Source Medication Medication Date Date Medication? Clinician (SIG) Name Name furosemide 2022-06 Yes TAKE 1 Metho di (LASIX) 40 0-[address] mg tablet 00:00: MOUTH Hospita 00 DAILY l NEEDED FOR LEG SWELLING traMADoL 2022-06 Yes [id number] 50mg Q24H Take 1 Method i (ULTRAM) 50 0-06 tablet (50 st mg tablet 00:00: mg total) Hos leida 00 by mouth l daily as needed for moderate pain or severe pain .chronic pain. gabapentin Yes TAKE 1 Metho di (NEURONTIN) - CAPSULE BY st 400 mg 00:00: MOUTH Hospita capsule 00 THREE l TIMES A DAY NEEDED FOR PAIN temazepam Yes [id number] 15mg QD TAKE 1 M ethodi (RESTORIL) 03-[address] 15 mg 00:00: MOUTH Hospita capsule 00 NIGHTLY l NEEDED FOR SLEEP metFORMIN Yes [id number] 500mg TAKE 1 M ethodi XR - TABLET BY st (GLUCOPHAGE 00:00: MOUTH Hospi ta -XR) 500 mg 00 TWICE A l 24 hr DAY WITH A tablet MEAL lancets Yes [id number] USE 6 Metho di (OneTouch - TIMES st Delica Plus 00:00: DAILY Hospi ta Lancet) 33 00 l gauge misc sertraline Yes [id number] 100mg QD Take 1 [facility] (ZOLOFT) - tablet st 100 MG 00:00: (100 mg Hospita tablet 00 total) by l mouth daily. sertraline 2022- No [id number] 100mg QD TAKE 1 [facility]i (ZOLOFT) - 09-[address] 100 MG 00:00: 00:00 MOUTH Hospita tablet 00 :00 DAILY l pantoprazol Yes [id number] TAKE 1 Methodi e 9-[address] (PROTONIX) 00:00: MOUTH Hospit a 40 MG EC 00 DAILY l tablet atorvastati Yes TAKE 1 Meth dana n (LIPITOR) 03-[address] 80 MG 00:00: MOUTH Hospita tablet 00 DAILY ( l DUE FOR FOLLOW UP AND LABS WITH PCP FOR ADDITIONAL REFILLS) furosemide 2022- No TAKE 1 Meth dana (LASIX) 40 03-[address] mg tablet 00:00: 00:00 MOUTH Hospit a 00 :00 DAILY l NEEDED FOR LEG SWELLING traMADoL 2022- No [id number] TAKE 1 M ethodi (ULTRAM) 50 03-[address] mg tablet 00:00: 00:00 MOUTH Hospit a 00 :00 DAILY l NEEDED FOR MODERATE PAIN OR SEVERE PAIN (LAST REFILL) temazepam Yes [id number] 15mg QD Take 1 M ethodi (RESTORIL) 03-[address] 15 mg 00:00: (15 mg Hospita capsule 00 total) by l mouth nightly as needed for sleep. temazepam 2022- No [id number] 15mg QD Take 1 Methodi (RESTORIL) 03-[address] 15 mg 00:00: 00:00 (15 mg Hospita capsule 00 :00 total) by l mouth nightly as needed for sleep. pantoprazol Yes [id number] TAKE 1 Methodi e - TABLET BY st (PROTONIX) 00:00: MOUTH Hospit a 40 MG EC 00 DAILY l tablet pantoprazol 2022- No [id number] TAKE 1 Methodi e -19 03- TABLET BY st (PROTONIX) 00:00: 00:00 MOUTH Hospi ta 40 MG EC 00 :00 DAILY l tablet metFORMIN Yes [id number] 500mg Q.5D TAKE 1 M ethodi XR - TABLET BY st (GLUCOPHAGE 00:00: MOUTH Hospi ta -XR) 500 mg 00 TWICE A l 24 hr DAY WITH tablet MEALS metFORMIN 0 2022- No [id number] 500mg Q.5D TAKE 1 Methodi XR 02-[address] (GLUCOPHAGE 00:00: 00:00 MOUTH Hosp melly -XR) 500 mg 00 :00 TWICE A l 24 hr DAY WITH tablet MEALS atorvastati Yes 80mg QD Take 1 Meth dana n (LIPITOR) 02-14 tablet (80 st 80 MG 00:00: mg total) Hospita tablet 00 by mouth l daily. Due for follow-up and labs with PCP for additional refills please. atorvastati 2022-0 2022- No 80mg QD Take 1 Met hodi n (LIPITOR) 02-14 tablet (80 s t 80 MG 00:00: 00:00 mg total) Hospit a tablet 00 :00 by mouth l daily. Due for follow-up and labs with PCP for additional refills please. furosemide Yes TAKE 1 Metho di (LASIX) 40 02-[address] mg tablet 00:00: MOUTH Hospita 00 DAILY l NEEDED FOR LEG SWELLING furosemide 2022-0 2022- No TAKE 1 Meth dana (LASIX) 40 02-[address] mg tablet 00:00: 00:00 MOUTH Hospit a 00 :00 DAILY l NEEDED FOR LEG SWELLING gabapentin 2022-0 Yes TAKE 1 Metho di (NEURONTIN) 02-[address] 400 mg 00:00: MOUTH Hospita capsule 00 THREE l TIMES A DAY NEEDED FOR PAIN sertraline 2022-0 Yes [id number] 100mg QD TAKE ONE Methodi (ZOLOFT) 02-[address] 100 MG 00:00: MOUTH Hospita tablet 00 DAILY l gabapentin 2022-0 2022- No TAKE 1 Meth dana (NEURONTIN) 02-01 CAPSULE BY s t 400 mg 00:00: 00:00 MOUTH Hospita capsule 00 :00 THREE l TIMES A DAY NEEDED FOR PAIN sertraline 2022-0 2022- No [id number] 100mg QD TAKE ONE Methodi (ZOLOFT) 02-[address] 100 MG 00:00: 00:00 MOUTH Hospita tablet 00 :00 DAILY l metFORMIN 2022-0 2022- No [id number] 500mg Q.5D TAKE 1 Methodi XR 02-[address] (GLUCOPHAGE 00:00: 00:00 MOUTH Hosp melly -XR) 500 mg 00 :00 TWICE A l 24 hr DAY WITH tablet MEALS metFORMIN No [id number] 500mg Q.5D TAKE 1 Methodi XR 02-[address] (GLUCOPHAGE 00:00: 00:00 MOUTH Hosp melly -XR) 500 mg 00 :00 TWICE A l 24 hr DAY WITH tablet MEALS traMADoL Yes [id number] 50mg Q24H Take 1 Method i (ULTRAM) 50 7-30 tablet (50 st mg tablet 00:00: mg total) Hos leida 00 by mouth l daily as needed for moderate pain or severe pain .chronic pain. [place] [id number] 50mg Q24H Take 1 Metho di (ULTRAM) 50 7-30 09-10 tablet (50 s t mg tablet 00:00: 00:00 mg total) Ho spita 00 :00 by mouth l daily as needed for moderate pain or severe pain .chronic pain. [place] [id number] 50mg Q24H Take 1 Metho di (ULTRAM) 50 7-30 07-30 tablet (50 s t mg tablet 00:00: 00:00 mg total) Ho spita 00 :00 by mouth l daily as needed for moderate pain or severe pain .chronic pain. [place] [id number] 50mg Q24H Take 1 Metho di (ULTRAM) 50 7-30 07-30 tablet (50 s t mg tablet 00:00: 00:00 mg total) Ho spita 00 :00 by mouth l daily as needed for moderate pain or severe pain .chronic pain. Last refill. pantoprazol No [id number] TAKE 1 Methodi e 01-[address] (PROTONIX) 00:00: 00:00 MOUTH Hospi ta 40 MG EC 00 :00 DAILY l tablet pantoprazol No [id number] TAKE 1 Methodi e 01-[address] (PROTONIX) 00:00: 00:00 MOUTH Hospi ta 40 MG EC 00 :00 DAILY l tablet atorvastati 2022- No TAKE ONE M ethodi n (LIPITOR) 01-[address] 80 MG 00:00: 00:00 MOUTH Hospita tablet 00 :00 DAILY l atorvastati 2022- No TAKE ONE M ethodi n (LIPITOR) 01-[address] 80 MG 00:00: 00:00 MOUTH Hospita tablet 00 :00 DAILY l furosemide 2022- No TAKE 1 Meth dana (LASIX) 40 01-[address] mg tablet 00:00: 00:00 MOUTH Hospit a 00 :00 DAILY l NEEDED FOR LEG SWELLING furosemide 2022- No TAKE 1 Meth dana (LASIX) 40 01-[address] mg tablet 00:00: 00:00 MOUTH Hospit a 00 :00 DAILY l NEEDED FOR LEG SWELLING gabapentin 2022- No TAKE ONE Me thodi (NEURONTIN) 01-07 CAPSULE BY s t 400 mg 00:00: 00:00 MOUTH Hospita capsule 00 :00 THREE l TIMES A DAY NEEDED FOR PAIN gabapentin 2022- No TAKE ONE Me thodi (NEURONTIN) 01-07 CAPSULE BY s t 400 mg 00:00: 00:00 MOUTH Hospita capsule 00 :00 THREE l TIMES A DAY NEEDED FOR PAIN traMADoL 2022- No [id number] 50mg Q24H Take 1 Metho di (ULTRAM) 50 01-07-30 tablet (50 s t mg tablet 00:00: 00:00 mg total) Ho spita 00 :00 by mouth l daily as needed for moderate pain or severe pain .chronic pain. traMADoL 2022- No [id number] 50mg Q24H Take 1 Metho di (ULTRAM) 50 01-07-30 tablet (50 s t mg tablet 00:00: 00:00 mg total) Ho spita 00 :00 by mouth l daily as needed for moderate pain or severe pain .chronic pain. traMADoL 2022- No TAKE ONE Methodi (ULTRAM) 50 12-[address] mg tablet 00:00: 00:00 MOUTH Hospit a 00 :00 EVERY 6 l HOURS NEEDED FOR MODERATE PAIN OR SEVERE PAIN furosemide 2022- No TAKE ONE Me thodi (LASIX) 40 12-15-[address] mg tablet 00:00: 00:00 MOUTH Hospit a 00 :00 DAILY l NEEDED FOR LEG SWELLING traMADoL 2022-0 2022- No [id number] TAKE ONE Methodi (ULTRAM) 50 12-15-[address] mg tablet 00:00: 00:00 MOUTH Hospit a 00 :00 EVERY 6 l HOURS NEEDED FOR MODERATE PAIN OR SEVERE PAIN furosemide 2022-0 2022- No TAKE ONE Me thodi (LASIX) 40 12-15-[address] mg tablet 00:00: 00:00 MOUTH Hospit a 00 :00 DAILY l NEEDED FOR LEG SWELLING pantoprazol 2022-0 2022- No [id number] TAKE ONE [facility] e -30 -[address] (PROTONIX) 00:00: 00:00 MOUTH Hospi ta 40 MG EC 00 :00 DAILY l tablet pantoprazol 2022-0 2022- No [id number] TAKE ONE [facility] -30 - TABLET BY st (PROTONIX) 00:00: 00:00 MOUTH Hospi ta 40 MG EC 00 :00 DAILY l tablet irbesartan- 2022-0 Yes 1{tbl} QD Take 1 [facility] hydrochloro 5-[address] thiazide 00:00: mouth Hospita (AVALIDE) 00 daily. l 150-12.5 mg per tablet OneTouch 2022-0 Yes [id number] 1U Q.[id number] Inject 1 [facility] Delica Plus 5-24 [id number] Units s t Lancet 33 00:00: 7D under the Hos leida gauge misc 00 skin 6 l (six) times a day. irbesartan- 2023-0 Yes 1{tbl} QD Take 1 [facility] hydrochloro 5-[address] thiazide 00:00: mouth [facility]ospita (AVALIDE) 00 daily. l 150-12.5 mg per tablet irbesartan- 2023-0 Yes 1{tbl} QD Take 1 [facility] hydrochloro 5-[address] thiazide 00:00: mouth [facility]osp[facility] (AVALIDE) 00 daily. l 150-12.5 mg per tablet irbesartan- 2023-0 Yes 1{tbl} QD Take 1 [facility] hydrochloro 5-[address] thiazide 00:00: mouth [facility]ospita (AVALIDE) 00 daily. l 150-12.5 mg per tablet OneTouch 2022- No [id number] 1U Q.[id number] Inject 1 [facility] Delica Plus 11-[id number] Lancet 33 00:00: 00:00 7D under the [facility] gauge misc 00 :00 skin 6 l (six) times a day. temazepam 2022- No [id number] 15mg QD Take 1 [facility] (RESTORIL) 11-[address] 15 mg 00:00: 00:00 (15 mg [facility]ospita capsule 00 :00 total) by l mouth nightly as needed for sleep. temazepam 2022- No [id number] 15mg QD Take 1 [facility] (RESTORIL) 11-[address] 15 mg 00:00: 00:00 (15 mg [facility]osp[facility] capsule 00 :00 total) by l mouth nightly as needed for sleep. metFORMIN 2022- No [id number] 500mg Q.5D Take 1 [facility] XR 11-[address] (GLUCOPHAGE 00:00: 00:00 (500 mg Ho sp[facility] -XR) 500 mg 00 :00 total) by l 24 hr mouth 2 tablet (two) times a day with meals. metFORMIN 2022- No [id number] 500mg Q.5D Take 1 [facility] XR 11-18- tablet st (GLUCOPHAGE 00:00: 00:00 (500 mg [facility] -XR) 500 mg 00 :00 total) by l 24 hr mouth 2 tablet (two) times a day with meals. gabapentin 2022- No 400mg Q.[id number] Take 1 [facility] (NEURONTIN) 11-[id number] 400 mg 00:00: 00:00 3D (400 mg [facility]ospita capsule 00 :00 total) by l mouth 3 (three) times a day as needed (pain). gabapentin 2022- No 400mg Q.[id number] Take 1 [facility] (NEURONTIN) 11-[id number] 400 mg 00:00: 00:00 3D (400 mg [facility]ospita capsule 00 :00 total) by l mouth 3 (three) times a day as needed (pain). traMADoL [id number] 50mg Q6H Take 1 [facility] di (ULTRAM) 50 5-24 06-20 tablet (50 s t mg tablet 00:00: 00:00 mg total) [facility]ita 00 :00 by mouth l every 6 (six) hours as needed for moderate pain or severe [place] [id number] 50mg Q6H Take 1 [facility] di (ULTRAM) 50 5-24 06-20 tablet (50 s t mg tablet 00:00: 00:00 mg total) [facility]ita 00 :00 by mouth l every 6 (six) hours as needed for moderate pain or severe pain .acute pain. levoFLOXaci No 750mg QD Take 1 [facility] n 10-[address] (LEVAQUIN) 11:51: 00:00 (750 mg Hos leida 750 MG 19 :00 total) by l tablet mouth daily. levoFLOXaci No 750mg QD Take 1 [facility] n 10-[address] (LEVAQUIN) 11:51: 00:00 (750 mg Hos leida 750 MG 19 :00 total) by l tablet mouth daily. insulin Humalog Method i LISPRO 10-27 st (HumaLOG 11:37: 00:00 [facility] 06 :00 l KwikPen U-100) 100 unit/mL insulin pen, half-unit subcutaneou s half-unit pen sertraline No 1 tablet Me thodi (Zoloft) 50 10-[address] MG tablet 11:37: 00:00 Once a day H ospita 06 :00 for 30 l day(s) insulin No Humalog Method i LISPRO 10-27 st (HumaLOG 11:37: 00:00 [facility] 06 :00 l KwikPen U-100) 100 unit/mL insulin pen, half-unit subcutaneou s half-unit pen sertraline No 1 tablet Me [facility] (Zoloft) 50 10-[address] MG tablet 11:37: 00:00 Once a day H ospita 06 :00 for 30 l day(s) cyanocobala 2022-0 Yes as Method i min [address] (cyanocobal 11:36: Orally Hosp melly min) 100 36 Once a day l MCG tablet cyanocobala 2022-0 Yes as Method i min [address] (cyanocobal 11:36: Orally Hosp melly min) 100 36 Once a day l MCG tablet pantoprazol 2022- No [id number] 40mg QD Take 1 Method[facility] e 10-2730 tablet (40 st (Protonix) 00:00: 00:00 mg total) H ospita 40 MG EC 00 :00 by mouth l tablet daily for 30 days. pantoprazol 2022- No [id number] 40mg QD Take 1 Method[facility] e 10-2730 tablet (40 st (Protonix) 00:00: 00:00 mg total) H ospita 40 MG EC 00 :00 by mouth l tablet daily for 30 days. loperamide 2022- No [id number] 2mg Q.[id number] Take 1 [facility] (Imodium 10-27 [id number] tablet (2 st A-D) 2 mg 00:00: 04:59 3D mg total) [facility] spita tablet 00 :00 by mouth 3 l (three) times a day as needed for diarrhea for up to 10 days. loperamide 2022- No [id number] 2mg Q.83163827 Take 1 [facility] (Imodium 10-27 [id number] tablet (2 st A-D) 2 mg 00:00: 04:59 3D mg total) [facility] spita tablet 00 :00 by mouth 3 l (three) times a day as needed for diarrhea for up to 10 days. nitrofurant 2022- No [id number] 100mg Q.5D Take 1 [facility] oin, 10-[address] macrocrysta 00:00: 04:59 (100 mg [facility] l-monohydra 00 :00 total) by l te, mouth 2 (MACROBID) (two) 100 MG times a capsule day for 7 days. nitrofurant No [id number] 100mg Q.5D Take 1 [facility] oin, - 05-[address] macrocrysta 00:00: 04:59 (100 mg [facility] l-monohydra 00 :00 total) by l te, mouth 2 (MACROBID) (two) 100 MG times a capsule day for 7 days. ondansetron 2022- No [id number] 4mg Q8H Take 1 [facility] ODT -08 02-08 tablet (4 st (ZOFRAN-ODT 00:00: 04:59 mg total) Hospita ) 4 MG 00 :00 by mouth l disintegrat every 8 ing tablet (eight) hours as needed for nausea or vomiting for up to 5 days. ondansetron 2022- No [id number] 4mg Q8H Take 1 [facility] ODT - 05-08 tablet (4 st (ZOFRAN-ODT 00:00: 04:59 mg total) Hospita ) 4 MG 00 :00 by mouth l disintegrat every 8 ing tablet (eight) hours as needed for nausea or vomiting for up to 5 days. fluconazole 2022- No [id number] 150mg QD Take 1 [facility] (Diflucan) 10-27-[address] 150 MG 00:00: 04:59 (150 mg [facility]ospita tablet 00 :00 total) by l mouth daily for 2 days. fluconazole 2022- No [id number] 150mg QD Take 1 [facility] (Diflucan) 10-27-[address] 150 MG 00:00: 04:59 (150 mg [facility]ospita tablet 00 :00 total) by l mouth daily for 2 days. amoxicillin 2022- No [id number] 1{tbl} Q.5D Take 1 [facility] -pot - 05-[address] clavulanate 00:00: 00:00 mouth 2 [facility] (AUGMENTIN) 00 :00 (two) l 875-125 mg times a per tablet day for 7 days. amoxicillin 2022- No [id number] 1{tbl} Q.5D Take 1 [facility] -pot 5- 05-[address] clavulanate 00:00: 00:00 mouth 2 [facility] spita (AUGMENTIN) 00 :00 (two) l 875-125 mg times a per tablet day for 7 days. furosemide 2022- No Method i (LASIX) 40 4-29 06-20 st mg tablet 00:00: 00:00 Hospita 00 :00 l furosemide 2022-0 2022- No Method i (LASIX) 40 4-29 06-20 st mg tablet 00:00: 00:00 Hospita 00 :00 l irbesartan- 2022- No Metho di hydrochloro 4- 05-23 st thiazide 00:00: 00:00 [facility]ospita (AVALIDE) 00 :00 l 150-12.5 mg per tablet irbesartan- 2022- No Metho di hydrochloro 4- 05-23 st thiazide 00:00: 00:00 [facility]ospita (AVALIDE) 00 :00 l 150-12.5 mg per tablet tamsulosin 2022-0 Yes [facility] (FLOMAX) 4-18 st 0.4 mg 00:00: [facility]ospita capsule 00 l tamsulosin 2022-0 Yes [facility] (FLOMAX) 4-18 st 0.4 mg 00:00: [facility]ospita capsule 00 l atorvastati 2022- No Metho di n (LIPITOR) 18 -13 st 80 MG 00:00: 00:00 [facility]ospita tablet 00 :00 l atorvastati 2022-0 2022- No Metho di n (LIPITOR) 10-13-13 st 80 MG 00:00: 00:00 Hospita tablet 00 :00 l gabapentin 2022-0 2022- No Method i (NEURONTIN) 3-24 11- st 400 mg 00:00: 00:00 [facility]ospita capsule 00 :00 l gabapentin 2022-0 2022- No Method i (NEURONTIN) 3-24 11-23 st 400 mg 00:00: 00:00 [facility]ospita capsule 00 :00 l traMADoL 2022-0 2022- No [id number] 50mg Q6H Take 1 Metho di (ULTRAM) 50 09-22-23 tablet (50 s t mg tablet 00:00: 00:00 mg total) [facility] spita 00 :00 by mouth l every 6 (six) hours as needed for moderate pain or severe pain .acute pain. traMADoL 2022- No [id number] 50mg Q6H Take 1 [facility] di (ULTRAM) 50 09-22 tablet (50 s t mg tablet 00:00: 00:00 mg total) [facility]ita 00 :00 by mouth l every 6 (six) hours as needed for moderate pain or severe pain .acute pain. Lantus 3-0 Yes 23U QD Inject 23 [facility] i Solostar 3-[address] U-100 00:00: under the [facility]ospita Insulin 100 00 skin l unit/mL nightly. injection (pen) Lantus 3-0 Yes 23U QD Inject 23 [facility] i Solostar 3-[address] U-100 00:00: under the [facility]ospita Insulin 100 00 skin l unit/mL nightly. injection (pen) bisacodyL 2022-0 Yes 10mg Q24H Insert 1 Meth dana (DULCOLAX) 08-[address] 10 mg 09:03: y (10 mg Hospita suppository 32 total) l into the rectum daily as needed for constipati on. bisacodyL 2022-0 Yes 10mg Q24H Insert 1 Meth dana (DULCOLAX) - suppositor st 10 mg 09:03: y (10 mg Hospita suppository 32 total) l into the rectum daily as needed for constipati on. sertraline 2022- No [id number] 100mg QD Take 1 [facility] (ZOLOFT) 08-27- tablet st 100 MG 00:00: 00:00 (100 mg [facility]ospita tablet 00 :00 total) by l mouth daily. sertraline 2022-0 2022- No [id number] 100mg QD Take 1 [facility] (ZOLOFT) 08-27 08-[address] 100 MG 00:00: 00:00 (100 mg [facility]ospita tablet 00 :00 total) by l mouth daily. temazepam 2022- No [id number] 15mg QD Take 1 [facility] (RESTORIL) 08-[address] 15 mg 00:00: 00:00 (15 mg [facility]osp[facility] capsule 00 :00 total) by l mouth nightly as needed for sleep. temazepam 2022- No [id number] 15mg QD Take 1 [facility] (RESTORIL) 08-27-[address] 15 mg 00:00: 00:00 (15 mg [facility]ospita capsule 00 :00 total) by l mouth nightly as needed for sleep. carvediloL 2022- No [id number] 12.5mg Q.5D Take 1 [facility] (COREG) 08-27- tablet st 12.5 MG 00:00: 04:59 (12.5 mg Hospi ta tablet 00 :00 total) by l mouth 2 (two) times a day for 30 days. furosemide No [id number] 40mg Q24H Take 1 [facility] (LASIX) 40 -08 01-02 tablet (40 st mg tablet 00:00: 04:59 mg total) [facility] 00 :00 by mouth l daily as needed (leg swelling) for up to 30 days. irbesartan- 2022- No [id number] 1{tbl} QD Take 1 [facility] hydrochloro -08 01-[address] thiazide 00:00: 04:59 mouth Hospita (AVALIDE) 00 :00 daily for l 150-12.5 mg 30 days. per tablet carvediloL No [id number] 12.5mg Q.5D Take 1 [facility] (COREG) 08-27- tablet st 12.5 MG 00:00: 04:59 (12.5 mg Hospi ta tablet 00 :00 total) by l mouth 2 (two) times a day for 30 days. furosemide No [id number] 40mg Q24H Take 1 [facility] (LASIX) 40 - 04-02 tablet (40 st mg tablet 00:00: 04:59 mg total) [facility] 00 :00 by mouth l daily as needed (leg swelling) for up to 30 days. irbesartan- 2022- No [id number] 1{tbl} QD Take 1 [facility] hydrochloro 3-02 -[address] thiazide 00:00: 04:59 mouth [facility]ospita (AVALIDE) 00 :00 daily for l 150-12.5 mg 30 days[place] [id number] 50mg Q6H Take 1 Metho di (ULTRAM) 50 08-27-28 tablet (50 s t mg tablet 00:00: 00:00 mg total) [facility]ita 00 :00 by mouth l every 6 (six) hours as needed for moderate pain or severe pain .acute pain. traMADoL 2022- [place] [id number] 50mg Q6H Take 1 Metho di (ULTRAM) 50 08-27-28 tablet (50 s t mg tablet 00:00: 00:00 mg total) [facility] spita 00 :00 by mouth l every 6 (six) hours as needed for moderate pain or severe pain .acute pain. temazepam 2022- No [id number] TAKE 1 [facility] (RESTORIL) 08-[address] 15 mg 00:00: 00:00 MOUTH [facility]osp[facility] capsule 00 :00 NIGHTLY l NEEDED FOR SLEEP OR ANXIETY temazepam 2022- No [id number] TAKE 1 [facility] (RESTORIL) 08-[address] 15 mg 00:00: 00:00 MOUTH [facility]osp[facility] capsule 00 :00 NIGHTLY l NEEDED FOR SLEEP OR ANXIETY acetaminoph 2022- No 325mg Q6H Take 1 [facility] en 08-[address] (TYLENOL) 15:55: 00:00 (325 mg Hosp melly 325 MG 03 :00 total) by l tablet mouth every 6 (six) hours as needed for fever or mild pain. magnesium 2022- No 30mL Q24H Take 30 mL M ethodi hydroxide 08-[address] 400 mg/5 mL 15:55: 00:00 daily as H [facility]sp[facility] suspension 03 :00 needed l (constipat ion). insulin 2022- No 18U QD Inject [facility] glargine-yf 08-[address] gn 100 15:55: 00:00 (18 Units Hospi ta unit/mL 03 :00 total) l solution under the skin every evening. acetaminoph 2022- No 325mg Q6H Take 1 [facility] en 08-[address] (TYLENOL) 15:55: 00:00 (325 mg Hosp melly 325 MG 03 :00 total) by l tablet mouth every 6 (six) hours as needed for fever or mild pain. magnesium No 30mL Q24H Take 30 mL M ethodi hydroxide 08-[address] 400 mg/5 mL 15:55: 00:00 daily as H [facility]spita suspension 03 :00 needed l (constipat ion). insulin 2022- No 18U QD Inject [facility] glargine-yf 08-[address] gn 100 15:55: 00:00 (18 Units Hospi ta unit/mL 03 :00 total) l solution under the skin every evening. insulin No 30U QD Inject 0.3 Met hodi glargine-yf 08-06- mL (30 st gn 100 15:55: 00:00 Units Hospita unit/mL 03 :00 total) l solution under the skin every morning. insulin No 30U QD Inject 0.3 Met hodi glargine-yf 08-06 mL (30 st gn 100 15:55: 00:00 Units Hospita unit/mL 03 :00 total) l solution under the skin every morning. insulin Yes [id number] 70 - 140 Me [facility] LISPRO 2-07 mg/dL st (HumaLOG 00:00: blood Hospita KwikPen 00 glucose: 0 l Insulin) unit(s), 100 unit/mL 141 - 180 subcutaneou mg/dL s pen blood glucose: 2 unit(s), 181 - 220 mg/dL blood glucose: 4 unit(s), 221 - 240 mg/dL blood glucose: 5 unit(s), 241 - 260 mg/dL blood glucose: 7 unit(s), 261 - 280 mg/dL blood glucose: 9 unit(s), 281 - 300 mg/dL blood glucose: 10 unit(s), GREATER than 300 mg/dL blood glucose: 12 unit(s) insulin Yes [id number] 70 - 140 Me [facility] LISPRO 2-07 mg/dL st (HumaLOG 00:00: blood [facility]ospita KwikPen 00 glucose: 0 l Insulin) unit(s), 100 unit/mL 141 - 180 subcutaneou mg/dL s pen blood glucose: 2 unit(s), 181 - 220 mg/dL blood glucose: 4 unit(s), 221 - 240 mg/dL blood glucose: 5 unit(s), 241 - 260 mg/dL blood glucose: 7 unit(s), 261 - 280 mg/dL blood glucose: 9 unit(s), 281 - 300 mg/dL blood glucose: 10 unit(s), GREATER than 300 mg/dL blood glucose: 12 unit(s) atorvastati 2022- No [id number] 80mg QD Take 1 [facility] n (LIPITOR) 08-04 tablet (80 s t 80 MG 00:00: 05:59 mg total) Hospit a tablet 00 :00 by mouth l daily for 30 days. gabapentin 2022- No [id number] 400mg Q.22157928 Take 1 [facility] (NEURONTIN) 08-[id number] 400 mg 00:00: 05:59 3D (400 mg Hospita capsule 00 :00 total) by l mouth 3 (three) times a day for 30 days. insulin 2022- No 30U QD Inject 0.3 Met hodi glargine-yf 08-04 mL (30 st gn 100 00:00: 05:59 Units Hospita unit/mL 00 :00 total) l solution under the skin every morning for 30 days. tamsulosin 2022- No .4mg QD Take 1 Meth dana (FLOMAX) 08-[address] 0.4 mg 00:00: 05:59 (0.4 mg [facility]ospita capsule 00 :00 total) by l mouth daily with dinner for 30 days. fluticasone 2022- No 100ug QD 2 sprays [facility] propionate 08-04 ([address] (FLONASE) 00:00: 05:59 total) by Ho spita 50 00 :00 Each Nare l mcg/actuati route on nasal daily for spray 30 days. busPIRone 2022- No 5mg Q.10189704 Take 1 [facility] (BUSPAR) 5 08-04 [id number] tablet (5 st MG tablet 00:00: 05:59 3D mg total) [facility] spita 00 :00 by mouth 3 l (three) times a day as needed (Anxiety) for up to 30 days. atorvastati 2022- No [id number] 80mg QD Take 1 [facility] n (LIPITOR) 08-04 tablet (80 s t 80 MG 00:00: 05:59 mg total) Hospit a tablet 00 :00 by mouth l daily for 30 days. gabapentin 2022- No [id number] 400mg Q.84883456 Take 1 [facility] (NEURONTIN) 08-[id number] 400 mg 00:00: 05:59 3D (400 mg [facility]ospita capsule 00 :00 total) by l mouth 3 (three) times a day for 30 days. insulin 2022- No 30U QD Inject 0.3 [facility] glargine-yf 08-04 mL (30 st gn 100 00:00: 05:59 Units Hospita unit/mL 00 :00 total) l solution under the skin every morning for 30 days. tamsulosin 2022- No .4mg QD Take 1 Meth dana (FLOMAX) 08-[address] 0.4 mg 00:00: 05:59 (0.4 mg [facility]ospita capsule 00 :00 total) by l mouth daily with dinner for 30 days. fluticasone 2022- No 100ug QD 2 sprays [facility] propionate 08-04 ([address] (FLONASE) 00:00: 05:59 total) by Ho spita 50 00 :00 Each Nare l mcg/actuati route on nasal daily for spray 30 days. busPIRone 2022- No 5mg Q.[id number] Take 1 [facility] (BUSPAR) 5 08-04 [id number] tablet (5 st MG tablet 00:00: 05:59 3D mg total) [facility] spita 00 :00 by mouth 3 l (three) times a day as needed (Anxiety) for up to 30 days. carvediloL 2022- No 12.5mg Q.5D Take 1 [facility] (COREG) 08-[address] 12.5 MG 00:00: 00:00 (12.5 mg Hospi ta tablet 00 :00 total) by l mouth 2 (two) times a day for 30 days. furosemide 2022- No [id number] 40mg Q24H Take 1 [facility] (LASIX) 40 08-04 tablet (40 st mg tablet 00:00: 00:00 mg total) [facility] 00 :00 by mouth l daily as needed (leg swelling) for up to 30 days. irbesartan- 2022- No [id number] 1{tbl} QD Take 1 [facility] hydrochloro 08-[address] thiazide 00:00: 00:00 mouth [facility]ospita (AVALIDE) 00 :00 daily for l 150-12.5 mg 30 days. per tablet traMADoL 2022- No [id number] 50mg Q6H Take 1 Metho di (ULTRAM) 50 08-04 tablet (50 s t mg tablet 00:00: 00:00 mg total) [facility] spita 00 :00 by mouth l every 6 (six) hours as needed for moderate pain .acute pain. carvediloL 2022- No 12.5mg Q.5D Take 1 [facility] (COREG) 08-[address] 12.5 MG 00:00: 00:00 (12.5 mg Hospi ta tablet 00 :00 total) by l mouth 2 (two) times a day for 30 days. furosemide 2022- No [id number] 40mg Q24H Take 1 [facility] (LASIX) 40 08-04 tablet (40 st mg tablet 00:00: 00:00 mg total) [facility] spita 00 :00 by mouth l daily as needed (leg swelling) for up to 30 days. irbesartan- 2022- No [id number] 1{tbl} QD Take 1 [facility] hydrochloro 08-[address] thiazide 00:00: 00:00 mouth [facility]ospita (AVALIDE) 00 :00 daily for l 150-12.5 mg 30 days. per tablet traMADoL 2022-2022- [place] [id number] 50mg Q6H Take 1 Metho di (ULTRAM) 50 08-04 tablet (50 s t mg tablet 00:00: 00:00 mg total) [facility] spita 00 :00 by mouth l every 6 (six) hours as needed for moderate pain .acute pain. busPIRone 2022- No 5mg Q.43906590 Take 1 [facility] (BUSPAR) 5 2- [id number] tablet (5 st MG tablet 00:00: 00:00 3D mg total) [facility] spita 00 :00 by mouth 3 l (three) times a day as needed (Anxiety) for up to 30 days. busPIRone 2022-0 2022- No 5mg Q.92360754 Take 1 [facility] (BUSPAR) 5 08-04 [id number] tablet (5 st MG tablet 00:00: 00:00 3D mg total) [facility] spita 00 :00 by mouth 3 l (three) times a day as needed (Anxiety) for up to 30 days. pantoprazol 2022-2022- No 40mg QD Take 1 Met hodi e 07-18 tablet (40 st (PROTONIX) 00:00: 00:00 mg total) H ospita 40 MG EC 00 :00 by mouth l tablet daily for 30 days. pantoprazol 2022-0 2022- No 40mg QD Take 1 Met hodi e 07-18 tablet (40 st (PROTONIX) 00:00: 00:00 mg total) H ospita 40 MG EC 00 :00 by mouth l tablet daily for 30 days. fluticasone 2022-0 2022- No 100ug QD 2 sprays [facility] propionate 07-18 ([address] (FLONASE) 00:00: 00:00 total) by Ho spita 50 00 :00 Each Nare l mcg/actuati route on nasal daily for spray 30 days. fluticasone 2022-0 2022- No 100ug QD 2 sprays [facility] propionate 07-18 ([address] (FLONASE) 00:00: 00:00 total) by Ho spita 50 00 :00 Each Nare l mcg/actuati route on nasal daily for spray 30 days. lidocaine 2022-2022- No 2{patch Q24H Place 2 M ethodi (LIDODERM) 07-18 } patches on st 5 % 00:00: 00:00 the skin Hospita 00 :00 daily for l 30 days. Remove & Discard patch within 12 hours or as directed by lidocaine No 2{patch Q24H Place 2 M ethodi (LIDODERM) 07-18 } patches on st 5 % 00:00: 00:00 the skin Hospita 00 :00 daily for l 30 days. Remove & Discard patch within 12 hours or as directed by albuterol No [id number] 2.5mg Q.5D Take 3 mL [facility] (ACCUNEB) 1- 02-20 (2.[address] 2.5 mg /3 00:00: 05:59 total) by Ho spita mL (0.083 00 :00 nebulizati l %) on 2 (two) nebulizer times a solution day for 30 days. alum-mag 2022- No 30mL Q.25D Take 30 mL M ethodi hydroxide-s -17 08-20 by mouth 4 s t imeth 00:00: 05:59 (four) Hospita (MAALOX 00 :00 times a l PLUS) day as 200-200-20 needed for mg/5 mL indigestio suspension n or heartburn for up to 30 days. carboxymeth No 1[drp] Q.25D Administer [facility] ylcellulose 1-20 02-[address] sodium 00:00: 05:59 both eyes Hospi ta (artificial 00 :00 4 (four) l tears) 1 % times a dropperette day for 30 ,gel days. albuterol No [id number] 2.5mg Q.5D Take 3 mL [facility] (ACCUNEB) 1-17 08-20 (2.[address] 2.5 mg /3 00:00: 05:59 total) by Ho spita mL (0.083 00 :00 nebulizati l %) on 2 (two) nebulizer times a solution day for 30 days. alum-mag 2022- No 30mL Q.25D Take 30 mL M ethodi hydroxide-s 1-20 02-20 by mouth 4 s t imeth 00:00: 05:59 (four) Hospita (MAALOX 00 :00 times a l PLUS) day as 200-200-20 needed for mg/5 mL indigestio suspension n or heartburn for up to 30 days. carboxymeth 2022- No 1[drp] Q.25D Administer [facility] ylcellulose 07-17 02-[address] sodium 00:00: 05:59 both eyes Hospi ta (artificial 00 :00 4 (four) l tears) 1 % times a dropperette day for 30 ,gel days. carvediloL 2022- No 6.25mg Q.5D Take 1 [facility] (COREG) 07-17-[address] 6.25 MG 00:00: 00:00 (6.25 mg Hospi ta tablet 00 :00 total) by l mouth 2 (two) times a day for 30 days. ondansetron 2022-0 2022- No 4mg Q6H Take 1 [facility] ODT 07-17-08 tablet (4 st (ZOFRAN-ODT 00:00: 00:00 mg total) Hospita ) 4 MG 00 :00 by mouth l disintegrat every 6 ing tablet (six) hours as needed for nausea or vomiting for up to 30 days. tamsulosin 2022-2022- No .4mg Q.5D Take 1 [facility] dana (FLOMAX) 07-17-[address] 0.4 mg 00:00: 00:00 (0.4 mg [facility]ospita capsule 00 :00 total) by l mouth 2 (two) times a day for 30 days. carvediloL 2022-0 2022- No 6.25mg Q.5D Take 1 [facility] (COREG) 07-17-[address] 6.25 MG 00:00: 00:00 (6.25 mg Hospi ta tablet 00 :00 total) by l mouth 2 (two) times a day for 30 days. ondansetron 2022-0 2022- No 4mg Q6H Take 1 [facility] ODT -17 08-08 tablet (4 st (ZOFRAN-ODT 00:00: 00:00 mg total) Hospita ) 4 MG 00 :00 by mouth l disintegrat every 6 ing tablet (six) hours as needed for nausea or vomiting for up to 30 days. tamsulosin 2022- No .4mg Q.5D Take 1 [facility] (FLOMAX) 07-[address] 0.4 mg 00:00: 00:00 (0.4 mg [facility]ospita capsule 00 :00 total) by l mouth 2 (two) times a day for 30 days. busPIRone 2022- No 5mg Q.[id number] Take 1 [facility] (BUSPAR) 5 07-17- [id number] tablet (5 st MG tablet 00:00: 00:00 3D mg total) Ho spita 00 :00 by mouth 3 l (three) times a day as needed (Anxiety) for up to 30 days. [place]MADoL 2022- [place] [id number] 50mg Q6H Take 1 Metho di (ULTRAM) 50 07-17 tablet (50 s t mg tablet 00:00: 00:00 mg total) Ho spita 00 :00 by mouth l every 6 (six) hours as needed for moderate pain .acute pain. busPIRone 2022- No 5mg Q.34683829 Take 1 [facility] (BUSPAR) 5 07-17- [id number] tablet (5 st MG tablet 00:00: 00:00 3D mg total) Ho spita 00 :00 by mouth 3 l (three) times a day as needed (Anxiety) for up to 30 days. traMADoL 2022-2022- [place] [id number] 50mg Q6H Take 1 [facility] di (ULTRAM) 50 07-1707 tablet (50 s t mg tablet 00:00: 00:00 mg total) Ho spita 00 :00 by mouth l every 6 (six) hours as needed for moderate pain .acute pain. NIFEdipine 2022-2022- No 60mg Q.5D Take 1 [facility] ER 07-17-03 tablet (60 st (PROCARDIA- 00:00: 00:00 mg total) [facility] XL) 60 MG 00 :00 by mouth 2 l 24 hr (two) tablet times a day for 30 days. NIFEdipine 2022-2022- No 60mg Q.5D Take 1 Meth dana ER 07-17-03 tablet (60 st (PROCARDIA- 00:00: 00:00 mg total) [facility]osp[facility] XL) 60 MG 00 :00 by mouth 2 l 24 hr (two) tablet times a day for 30 days. tamsulosin 3- No .4mg QD Take 1 Meth dana (FLOMAX) 06-[address] 0.4 mg 00:00: 00:00 (0.4 mg [facility] capsule 00 :00 total) by l mouth daily with dinner for 30 days. tamsulosin 2022- No .4mg QD Take 1 Meth dana (FLOMAX) 06-[address] 0.4 mg 00:00: 00:00 (0.4 mg [facility] capsule 00 :00 total) by l mouth daily with dinner for 30 days. insulin Yes [id number] 70 - 140 Nm thodi LISPRO 7-14 mg/dL st (HumaLOG 00:00: blood [facility] KwikPen 00 glucose: 0 l Insulin) unit(s), 100 unit/mL 141 - 180 subcutaneou mg/dL s pen blood glucose: 2 unit(s), 181 - 220 mg/dL blood glucose: 4 unit(s), 221 - 240 mg/dL blood glucose: 5 unit(s), 241 - 260 mg/dL blood glucose: 7 unit(s), 261 - 280 mg/dL blood glucose: 9 unit(s), 281 - 300 mg/dL blood glucose: 10 unit(s), GREATER than 300 mg/dL blood glucose: 12 unit(s) insulin 2022- No [id number] 70 - 140 ethodi LISPRO 7-14 02-07 mg/dL st (HumaLOG 00:00: 00:00 blood [facility] KwikPen 00 :00 glucose: 0 l Insulin) unit(s), 100 unit/mL 141 - 180 subcutaneou mg/dL s pen blood glucose: 2 unit(s), 181 - 220 mg/dL blood glucose: 4 unit(s), 221 - 240 mg/dL blood glucose: 5 unit(s), 241 - 260 mg/dL blood glucose: 7 unit(s), 261 - 280 mg/dL blood glucose: 9 unit(s), 281 - 300 mg/dL blood glucose: 10 unit(s), GREATER than 300 mg/dL blood glucose: 12 unit(s) insulin 2022- No [id number] 70 - 140 M ethodi LISPRO 7-14 02-07 mg/dL st (HumaLOG 00:00: 00:00 blood [facility]osp[facility] KwikPen 00 :00 glucose: 0 l Insulin) unit(s), 100 unit/mL 141 - 180 subcutaneou mg/dL s pen blood glucose: 2 unit(s), 181 - 220 mg/dL blood glucose: 4 unit(s), 221 - 240 mg/dL blood glucose: 5 unit(s), 241 - 260 mg/dL blood glucose: 7 unit(s), 261 - 280 mg/dL blood glucose: 9 unit(s), 281 - 300 mg/dL blood glucose: 10 unit(s), GREATER than 300 mg/dL blood glucose: 12 unit(s) insulin 2021- No [id number] 70 - 140 M ethodi lispro 7-11 07-14 mg/dL st (ADMELOG) 00:00: 00:00 blood Hospit a 100 unit/mL 00 :00 glucose: 0 l injection unit(s), pen 141 - 180 mg/dL blood glucose: 2 unit(s), 181 - 220 mg/dL blood glucose: 4 unit(s), 221 - 240 mg/dL blood glucose: 5 unit(s), 241 - 260 mg/dL blood glucose: 7 unit(s), 261 - 280 mg/dL blood glucose: 9 unit(s), 281 - 300 mg/dL blood glucose: 10 unit(s), GREATER than 300 mg/dL blood glucose: 12 unit(s) and notify PCP, Normal insulin 2021- No [id number] 70 - 140 M ethodi lispro 7-11 07-11 mg/dL st (ADMELOG) 00:00: 00:00 blood Hospit a 100 unit/mL 00 :00 glucose: 0 l injection unit(s), pen 141 - 180 mg/dL blood glucose: 2 unit(s), 181 - 220 mg/dL blood glucose: 4 unit(s), 221 - 240 mg/dL blood glucose: 5 unit(s), 241 - 260 mg/dL blood glucose: 7 unit(s), 261 - 280 mg/dL blood glucose: 9 unit(s), 281 - 300 mg/dL blood glucose: 10 unit(s), GREATER than 300 mg/dL blood glucose: 12 unit(s) and notify PCP, Normal irbesartan 150mg QD Take 150 M ethodi (AVAPRO) 7-08 07-[address] 150 MG 15:15: 00:00 mouth Hospita tablet 59 :00 nightly. l risperiDONE Yes Method i (RisperDAL) 7-08 st 0.5 MG 00:00: Hospita tablet 00 l atorvastati Yes [id number] 80mg QD Take 1 [facility] n (LIPITOR) 7-08 tablet (80 st 80 MG 00:00: mg total) Hospita tablet 00 by mouth l daily. carvediloL Yes [id number] 3.125mg Q.5D Take 1 [facility] (COREG) [address] 3.125 MG 00:00: (3.125 mg Hosp melly tablet 00 total) by l mouth 2 (two) times a day. ergocalcife Yes [id number] Q7D Take 1 [facility] rol 7-[address] (VITAMIN 00:00: (50,000 Hospit a D2) 50,000 00 Units l unit total) by capsule mouth once a week. Once a week furosemide Yes [id number] 40mg Q24H Take 1 [facility] (LASIX) 40 08 tablet (40 st mg tablet 00:00: mg total) Hos leida 00 by mouth l daily as needed (leg swelling). insulin Yes [id number] 70 - 140 Me thodi ASPART 7-08 mg/dL st (NovoLOG 00:00: blood Hospita U-100 00 glucose: 0 l Insulin unit(s), aspart) 100 141 - 180 unit/mL mg/dL injection blood glucose: 2 unit(s), 181 - 220 mg/dL blood glucose: 4 unit(s), 221 - 240 mg/dL blood glucose: 5 unit(s), 241 - 260 mg/dL blood glucose: 7 unit(s), 261 - 280 mg/dL blood glucose: 9 unit(s), 281 - 300 mg/dL blood glucose: 10 unit(s), GREATER than 300 mg/dL blood glucose: 12 unit(s) and notify PCP irbesartan- Yes [id number] 1{tbl} QD Take 1 [facility] hydrochloro 7-[address] thiazide 00:00: mouth Hospita (AVALIDE) 00 daily. l 150-12.5 mg per tablet metFORMIN Yes [id number] 500mg Q.5D Take 1 M ethodi XR 7-[address] (GLUCOPHAGE 00:00: (500 mg Hos leida -XR) 500 mg 00 total) by l 24 hr mouth 2 tablet (two) times a day with meals. OneTouch Yes [id number] 1U Q.[id number] Inject 1 [facility] Delica Plus 01-02 [id number] Units s t Lancet 33 00:00: 7D under the Hos leida gauge misc 00 skin 6 l (six) times a day. sertraline Yes [id number] 50mg QD Take 1 M ethodi (ZOLOFT) 50 -08 tablet (50 st MG tablet 00:00: mg total) Hos leida 00 by mouth l daily. ergocalcife Yes [id number] Q7D Take 1 [facility] rol -[address] (VITAMIN 00:00: (50,000 Hospit a D2) 50,000 00 Units l unit total) by capsule mouth once a week. Once a week ergocalcife Yes [id number] Q7D Take 1 [facility] rol -[address] (VITAMIN 00:00: (50,000 Hospit a D2) 50,000 00 Units l unit total) by capsule mouth once a week. Once a week gabapentin 2022- No [id number] 400mg Q.[id number] Take 1 [facility] (NEURONTIN) 01-02 07-[id number] 400 mg 00:00: 04:59 3D (400 mg Hospita capsule 00 :00 total) by l mouth 3 (three) times a day. metFORMIN 2022- No [id number] 500mg Q.5D Take 1 [facility] XR 01-02 05-[address] (GLUCOPHAGE 00:00: 00:00 (500 mg Ho spita -XR) 500 mg 00 :00 total) by l 24 hr mouth 2 tablet (two) times a day with meals. OneTouch 2022- No [id number] 1U Q.[id number] Inject 1 [facility] Delica Plus 01-[id number] Lancet 33 00:00: 00:00 7D under the Ho spita gauge misc 00 :00 skin 6 l (six) times a day. metFORMIN 2022- No [id number] 500mg Q.5D Take 1 [facility] XR 01-[address] (GLUCOPHAGE 00:00: 00:00 (500 mg Ho spita -XR) 500 mg 00 :00 total) by l 24 hr mouth 2 tablet (two) times a day with meals. OneTouch 2022- No [id number] 1U Q.[id number] Inject 1 [facility] Delica Plus 01-[id number] Lancet 33 00:00: 00:00 7D under the Ho spita gauge misc 00 :00 skin 6 l (six) times a day. sertraline 2022- No [id number] 50mg QD Take 1 [facility] (ZOLOFT) 50 01-02 tablet (50 s t MG tablet 00:00: 00:00 mg total) Ho spita 00 :00 by mouth l daily. sertraline 2022- No [id number] 50mg QD Take 1 [facility] (ZOLOFT) 50 01-02 tablet (50 s t MG tablet 00:00: 00:00 mg total) Ho spita 00 :00 by mouth l daily. temazepam 2022- No [id number] 15mg QD Take 1 [facility] (RESTORIL) 01-[address] 15 mg 00:00: 00:00 (15 mg Hospita capsule 00 :00 total) by l mouth nightly as needed for sleep or anxiety for up to 60 days. temazepam 2022- No [id number] 15mg QD Take 1 [facility] (RESTORIL) 01-[address] 15 mg 00:00: 00:00 (15 mg [facility]ospita capsule 00 :00 total) by l mouth nightly as needed for sleep or anxiety for up to 60 days. risperiDONE 2022- No .5mg QD Take 1 Met hodi (RisperDAL) 01-[address] 0.5 MG 00:00: 00:00 (0.5 mg Hospita tablet 00 :00 total) by l mouth daily. insulin 2022- No [id number] 70 - 140 M ethodi ASPART 01-02-08 mg/dL st (NovoLOG 00:00: 00:00 blood [facility]ospita U-100 00 :00 glucose: 0 l Insulin unit(s), aspart) 100 141 - 180 unit/mL mg/dL injection blood glucose: 2 unit(s), 181 - 220 mg/dL blood glucose: 4 unit(s), 221 - 240 mg/dL blood glucose: 5 unit(s), 241 - 260 mg/dL blood glucose: 7 unit(s), 261 - 280 mg/dL blood glucose: 9 unit(s), 281 - 300 mg/dL blood glucose: 10 unit(s), GREATER than 300 mg/dL blood glucose: 12 unit(s) and notify PCP risperiDONE 2022- No .5mg QD Take 1 Met hodi (RisperDAL) 01-[address] 0.5 MG 00:00: 00:00 (0.5 mg Hospita tablet 00 :00 total) by l mouth daily. insulin 2022- No [id number] 70 - 140 M ethodi ASPART 01-02 mg/dL st (NovoLOG 00:00: 00:00 blood [facility]ospita U-100 00 :00 glucose: 0 l Insulin unit(s), aspart) 100 141 - 180 unit/mL mg/dL injection blood glucose: 2 unit(s), 181 - 220 mg/dL blood glucose: 4 unit(s), 221 - 240 mg/dL blood glucose: 5 unit(s), 241 - 260 mg/dL blood glucose: 7 unit(s), 261 - 280 mg/dL blood glucose: 9 unit(s), 281 - 300 mg/dL blood glucose: 10 unit(s), GREATER than 300 mg/dL blood glucose: 12 unit(s) and notify PCP atorvastati 2022- No [id number] 80mg QD Take 1 [facility] n (LIPITOR) 01-02 tablet (80 s t 80 MG 00:00: 00:00 mg total) Hospit a tablet 00 :00 by mouth l daily. furosemide 2022- No [id number] 40mg Q24H Take 1 [facility] (LASIX) 40 01-02 tablet (40 st mg tablet 00:00: 00:00 mg total) Ho spita 00 :00 by mouth l daily as needed (leg swelling). gabapentin 2022- No [id number] 400mg Q.[id number] Take 1 [facility] (NEURONTIN) 01-[id number] 400 mg 00:00: 00:00 3D (400 mg [facility]ospita capsule 00 :00 total) by l mouth 3 (three) times a day. irbesartan- 2022- No [id number] 1{tbl} QD Take 1 [facility] hydrochloro 01-[address] thiazide 00:00: 00:00 mouth Hospita (AVALIDE) 00 :00 daily. l 150-12.5 mg per tablet atorvastati 2022- No [id number] 80mg QD Take 1 [facility] n (LIPITOR) 01-02 tablet (80 s t 80 MG 00:00: 00:00 mg total) Hospit a tablet 00 :00 by mouth l daily. furosemide 2022- No [id number] 40mg Q24H Take 1 [facility] (LASIX) 40 01-02 tablet (40 st mg tablet 00:00: 00:00 mg total) Ho spita 00 :00 by mouth l daily as needed (leg swelling). gabapentin 2022- No [id number] 400mg Q.[id number] Take 1 [facility] (NEURONTIN) 01-[id number] 400 mg 00:00: 00:00 3D (400 mg [facility]ospita capsule 00 :00 total) by l mouth 3 (three) times a day. irbesartan- 2022- No [id number] 1{tbl} QD Take 1 [facility] hydrochloro 01-[address] thiazide 00:00: 00:00 mouth Hospita (AVALIDE) 00 :00 daily. l 150-12.5 mg per tablet carvediloL 2022- No [id number] 3.125mg Q.5D Take 1 [facility] (COREG) 01-[address] 3.125 MG 00:00: 00:00 (3.125 mg Hos [facility] tablet 00 :00 total) by l mouth 2 (two) times a day. carvediloL 2022- No [id number] 3.125mg Q.5D Take 1 [facility] (COREG) 01-[address] 3.125 MG 00:00: 00:00 (3.125 mg Hos leida tablet 00 :00 total) by l mouth 2 (two) times a day. temazepam 2021- No [id number] 15mg QD Take 1 [facility] (RESTORIL) 01-[address] 15 mg 00:00: 04:59 (15 mg [facility]ospita capsule 00 :00 total) by l mouth nightly as needed for sleep or anxiety for up to 60 days. fluconazole 2021- No [id number] 150mg Take 1 [facility] (DIFLUCAN) 01-[address] 150 MG 00:00: 04:59 (150 mg [facility]ospita tablet 00 :00 total) by l mouth once for 1 dose. atorvastati 2021- No Meth[facility] di n (LIPITOR) 12-21 st 80 MG 00:00: 00:00 Hospita tablet 00 :00 l irbesartan- 2021- No Metho di hydrochloro 12-11 st thiazide 00:00: 00:00 Hospita (AVALIDE) 00 :00 l 150-12.5 mg per tablet aspirin 81 0 Yes [facility] mg chewable 12-02 st tablet 00:00: Hospita 00 l aspirin 81 2021-0 Yes 81mg QD Chew 1 Metho di mg chewable -07 tablet (81 st tablet 00:00: mg total) Hospit a 00 daily. l aspirin 81 0 Yes 81mg QD Chew 1 [facility]o di mg chewable -07 tablet (81 st tablet 00:00: mg total) Hospit a 00 daily. l carvediloL 2021- No Method i (COREG) 12-02 st 3.125 MG 00:00: 00:00 Hospita tablet 00 :00 l insulin 2021- No 35U Q.5D Inject 35 Meth dana regular 11-21 05-[address] (HumuLIN-R) 08:49: 00:00 under the Hospita 100 unit/mL 39 :00 skin 2 l injection (two) times a day before meals. Lantus Yes 30 units [facility] Solostar 11-[address] U-100 00:00: units qPM Hospita Insulin 100 00 l unit/mL injection (pen) Lantus 2022- No 18U Inject 18 Metho di Solostar 11-21 02-[address] U-100 00:00: 00:00 under the Hospit a Insulin 100 00 :00 skin. 30 l unit/mL units qAM injection and 18 (pen) units qPM Lantus 2022- No 18U Inject 18 Metho di Solostar 11-21 02-[address] U-100 00:00: 00:00 under the Hospit a Insulin 100 00 :00 skin. 30 l unit/mL units qAM injection and 18 (pen) units qPM gabapentin 2021- No [id number] 300mg Q.[id number] Take 1 [facility] (NEURONTIN) 11-[id number] 300 mg 00:00: 00:00 3D (300 mg [facility]ospita capsule 00 :00 total) by l mouth 3 (three) times a day. temazepam 2021- No [id number] 15mg QD Take 1 [facility] (RESTORIL) 11-[address] 15 mg 00:00: 00:00 (15 mg [facility]ospita capsule 00 :00 total) by l mouth nightly as needed for sleep or anxiety for up to 60 days. furosemide 2021- No Method i (LASIX) 40 11-21 st mg tablet 00:00: 00:00 Hospita 00 :00 l OneTouch Yes [facility] Ultra Test 5-12 st strip test 00:00: Hospita strips 00 l OneTouch Yes [facility] Ultra2 5-12 st Meter misc 00:00: Hospita 00 l OneTouch Yes [facility] Ultra2 -12 st Meter misc 00:00: Hospita 00 l OneTouch 2021-0 Yes [facility] Ultra2 5-12 st Meter misc 00:00: Hospita 00 l OneTouch 2022- No [facility] Ultra Test 11-06 st strip test 00:00: 00:00 Hospit a strips 00 :00 l OneTouch 2022- No [facility] Ultra Test 11-06 st strip test 00:00: 00:00 Hospit a strips 00 :00 l losartan 2021- No [facility] (COZAAR) 50 11-06 st MG tablet 00:00: 00:00 Hospita 00 :00 l metFORMIN 2021- No [facility] XR 11-06 st (GLUCOPHAGE 00:00: 00:00 Hospi ta -XR) 500 mg 00 :00 l 24 hr tablet sertraline 2021- No Method i (ZOLOFT) 50 11-06 st MG tablet 00:00: 00:00 Hospita 00 :00 l OneTouch 2021- No [facility] Delica Plus 11-06 st Lancet 33 00:00: 00:00 Hospita gauge misc 00 :00 l Lantus 2021- No [facility] Solostar 11-06 05-27 st U-100 00:00: 00:00 Hospita Insulin 100 00 :00 l unit/mL injection (pen) aspirin 81 2021- No 81mg QD Chew 1 Meth dana mg chewable 10-29 06-04 tablet (81 s t tablet 00:00: 04:59 mg total) Hospi ta 00 :00 daily for l 30 days. carvediloL 2021- No 3.125mg Q.5D Take 3.125 [facility] (COREG) 5- 05-[address] 3.125 MG 18:46: 00:00 mouth 2 Hospi ta tablet 33 :00 (two) l times a day with meals. carvediloL 2021- No 12.5mg Q.5D Take 1 Me thodi (COREG) 5-03 06-[address] 12.5 MG 00:00: 04:59 (12.5 mg Hospi ta tablet 00 :00 total) by l mouth 2 (two) times a day with meals for 30 days. atorvastati 2021- No 80mg QD Take 1 Met hodi n (LIPITOR) 10-28 tablet (80 s t 80 MG 00:00: 04:59 mg total) Hospit a tablet 00 :00 by mouth l nightly for 30 days. NIFEdipine 2020-06- No [id number] 30mg QD Take 1 M ethodi ER 08-18 tablet (30 st (PROCARDIA- 00:00: 00:00 mg total) Hospita XL) 30 MG 00 :00 by mouth l 24 hr daily. tablet sertraline 2020-06 No [id number] 50mg QD Take 1 [facility] (ZOLOFT) 50 08-18 tablet (50 s t MG tablet 00:00: 00:00 mg total) Ho spita 00 :00 by mouth l daily. losartan 2020-06 No [id number] 25mg QD Take 1 Met hodi (COZAAR) 25 08-18 tablet (25 s t MG tablet 00:00: 00:00 mg total) Ho spita 00 :00 by mouth l daily. rosuvastati 2020-06- No [id number] 20mg QD Take 1 [facility]i n (CRESTOR) 08-18 tablet (20 s t 20 mg 00:00: 00:00 mg total) Hospit a tablet 00 :00 by mouth l daily. fluconazole 2020-06- No Metho di (DIFLUCAN) 07-16- st 150 MG 00:00: 00:00 Hospita tablet 00 :00 l fluconazole 2020-06- No [id number] 150mg Take 1 [facility] (DIFLUCAN) 07-[address] 150 MG 00:00: 05:59 (150 mg Hospita tablet 00 :00 total) by l mouth once for 1 dose. irbesartan 2020-06 No Method i (AVAPRO) 07-10- st 150 MG 00:00: 00:00 Hospita tablet 00 :00 l gabapentin 2021- No [id number] 400mg Q.5D Take 1 [facility] (NEURONTIN) 02-[address] 400 mg 00:00: 00:00 (400 mg [facility]ospita capsule 00 :00 total) by l mouth 2 (two) times a day. HumuLIN R 2021- No For [facility] U-500, 02-[address] Conc, 00:00: 00:00 Hospita Kwikpen 500 00 :00 l unit/mL (3 mL) insulin pen onetouch 2021- No For [facility] ultrasoft 02-[address] lancets 00:00: 00:00 Hospita 00 :00 l losartan 2020- No [id number] TAKE ONE M ethodi (COZAAR) 25 02-[address] MG tablet 00:00: 00:00 MOUTH Hospit a 00 :00 DAILY l sertraline 2020- No [id number] TAKE ONE [facility] (ZOLOFT) 02-[address] MG tablet 00:00: 00:00 MOUTH Hospit a 00 :00 DAILY l docusate 2021- No 100mg Q.5D Take 1 Metho di sodium 07-[address] (Colace) 00:00: 00:00 (100 mg Hospi ta 100 MG 00 :00 total) by l capsule mouth 2 (two) times a day as needed for constipati on. latanoprost 2019-06 Yes 1[drp] QD 1 drop Me thodi (XALATAN) 07-[address] 0.005 % 00:00: Hospita ophthalmic 00 l solution latanoprost 2019-06- No 1[drp] QD Administer [facility] (XALATAN) 07-[address] 0.005 % 00:00: 00:00 both eyes Hosp melly ophthalmic 00 :00 nightly. l solution latanoprost 2019-06- No 1[drp] QD Administer [facility] (XALATAN) 07-[address] 0.005 % 00:00: 00:00 both eyes Hosp melly ophthalmic 00 :00 nightly. l solution rosuvastati 2020- No [id number] 20mg QD Take 1 [facility] n (CRESTOR) 03-06 tablet (20 s t 20 mg 00:00: 00:00 mg total) Hospit a tablet 00 :00 by mouth l daily. NIFEdipine 2020- No [id number] 30mg QD Take 1 M ethodi XL 03-06 tablet (30 st (PROCARDIA 00:00: 00:00 mg total) H ospita XL) 30 MG 00 :00 by mouth l 24 hr daily. tablet insulin 2021- No 70 - 140 Metho di ASPART 8 07-08 mg/dL st (NovoLOG 00:00: 00:00 blood [facility]ospita U-100 00 :00 glucose: 0 l Insulin unit(s), aspart) 100 141 - 180 unit/mL mg/dL injection blood glucose: 2 unit(s), 181 - 220 mg/dL blood glucose: 4 unit(s), 221 - 240 mg/dL blood glucose: 5 unit(s), 241 - 260 mg/dL blood glucose: 7 unit(s), 261 - 280 mg/dL blood glucose: 9 unit(s), 281 - 300 mg/dL blood glucose: 10 unit(s), GREATER than 300 mg/dL blood glucose: 12 unit(s) and notify PCP nitroglycer Yes WESLEY 1 PATCH Me moria in 12-22 ANDREY l 02:45: potassium 2019-0 Yes WESLEY 1 cap(s) Mem oria chloride 12-22 ANDREY l 02:45: Zofran 2019-0 Yes WES[facility] 1 tab(s) Memori a 12-22 ANDREY l 02:45: gabapentin 2019-0 Yes W[facility] 1 cap(s) Me moria - ANDREY l 02:45: famotidine 2019-0 Yes WES[facility] 1 tab(s) Me moria - ANDREY l 02:45: MiraLax 2019-0 Yes WESLEY as Memoria 12-22 ANDREY directed l 02:45: Acidophilus 2019-0 Yes WES[facility] 1 cap(s) M emoria Extra 12-22 ANDREY l Strength 02:45: tramadol 2020-0 Yes WESLEY 1 tab(s) Jacinto margarita 6-27 ANDREY l 02:45: Crestor 2020-0 Yes WES[facility] 1 tab(s) Memor ia 6-27 ANDREY l 02:45: Lovenox 2020-0 Yes [facility]ES[facility] as Memoria 6-27 ANDREY directed l 02:45: nifedipine 2020-0 Yes WES[facility] 1 tab(s) Me moria 6-27 ANDREY l 02:45: Tylenol 2020-0 Yes WES[facility] 2 tab(s) Memor ia 6-27 ANDREY l 02:45: Fleet Enema 2020-0 Yes WESLEY 133 mL Mem oria 6- ANDREY l 02:45: Maalox Max 2020-0 Yes WESLEY not Memori a 6-27 ANDREY defined l 02:45: senna 2020-0 Yes WES[facility] 1 tab(s) Memoria 6-27 ANDREY l 02:45: furosemide 2020-0 Yes WES[facility] 1 tab(s) Me moria 6-27 ANDREY l 02:45: cefazolin 2020-0 Yes [facility] as Memoria 6-27 ANDREY directed l 02:45: calcium 2020-0 Yes [facility] 1 tab(s) Memor ia carbonate 6-27 ANDREY l 02:45: docusate 2020-0 Yes WES[facility] 1 tab(s) Jacinto margarita 6-27 ANDREY l 02:45: latanoprost 2020-0 Yes [facility] 1 gtt Jacinto margarita ophthalmic 6-27 ANDREY l 02:45: methocarbam 2020-0 Yes WESLEY 2 tab(s) M emoria ol 6-27 ANDREY l 02:45: alprazolam 2020-0 Yes WESLEY 1 tab(s) Me moria 6-27 ANDREY l 02:45: carvedilol 2020-0 Yes W[facility] 1 tab(s) Me moria 6-27 ANDREY l 02:45: irbesartan 2020-0 Yes [facility] 1 tab(s) Me moria 6-27 ANDREY l 02:45: insulin 2020-0 Yes WES[facility] 0 Memoria lispro 6-27 ANDREY l 02:45: Lantus 2020-0 Yes WES[facility] 0 Memoria - ANDREY l 02:45: nitroglycer 2020-0 Yes W[facility] 1 PATCH Me moria in [...] 02:45: MiraLax 2020-0 Yes [facility] as Memoria 12-22 ANDREY directed l 02:45: Acidophilus 2020-0 Yes WES[facility] 1 cap(s) M emoria Extra 12-22 ANDREY l Strength 02:45: tramadol 2020-0 Yes WESLEY 1 tab(s) Jacinto margarita - ANDREY l 02:45: Crestor 2020-0 Yes [facility] 1 tab(s) Memor ia - ANDREY l 02:45: Lovenox 2020-0 Yes [facility] as Memoria 12-22 ANDREY directed l 02:45: nifedipine 2020-0 Yes [facility] 1 tab(s) Me moria - ANDREY l 02:45: Tylenol 2020-0 Yes [facility] 2 tab(s) Memor ia -27 ANDREY l 02:45: Fleet Enema 2020-0 Yes WESLEY 133 mL Mem oria - ANDREY l 02:45: Maalox Max 2020-0 Yes WESLEY not Memori a 6-27 ANDREY defined l 02:45: [place] senna 2020-0 Yes [facility] 1 tab(s) Memoria 6-27 ANDREY l 02:45: [place] 21 furosemide 2020-0 Yes [facility] 1 tab(s) Me moria - ANDREY l 02:45: cefazolin 2020-0 Yes [facility] as Memoria 12-22 ANDREY directed l 02:45: calcium 2020-0 Yes [facility] 1 tab(s) Memor ia carbonate 12-22 ANDREY l 02:45: docusate 2020-0 Yes [facility] 1 tab(s) Jacinto margarita 12-22 ANDREY l 02:45: latanoprost 2020-0 Yes [facility] 1 gtt Jacinto margarita ophthalmic 12-22 ANDREY l 02:45: methocarbam 2020-0 Yes WES[facility] 2 tab(s) M emoria ol 12-22 ANDREY l 02:45: alprazolam 2020-0 Yes [facility] 1 tab(s) Me moria 12-22 ANDREY l 02:45: carvedilol 2020-0 Yes [facility] 1 tab(s) Me moria 12-22 ANDREY l 02:45: irbesartan 2020-0 Yes [facility] 1 tab(s) Me moria 12-22 ANDREY l 02:45: insulin 2020-0 Yes [facility] 0 Memoria lispro 12-22 ANDREY l 02:45: Lantus 2020-0 Yes WES[facility] 0 Memoria 12-22 ANDREY l 02:45: nitroglycer 2020-0 Yes [facility] 1 PATCH Me moria in 12-22 ANDREY l 02:45: potassium 2020-0 Yes [facility] 1 cap(s) Mem oria chloride 12-22 ANDREY l 02:45: Zofran 2020-0 Yes [facility] 1 tab(s) Memori a 12-22 ANDREY l 02:45: gabapentin 2020-0 Yes [facility] 1 cap(s) Me moria - ANDREY l 02:45: famotidine 2020-0 Yes [facility] 1 tab(s) Me moria 12-22 ANDREY l 02:45: MiraLax 2020-0 Yes [facility] as Memoria 12-22 ANDREY directed l 02:45: Acidophilus 2020-0 Yes [facility] 1 cap(s) M emoria Extra 6-27 ANDREY l Strength 02:45: tramadol 2020-0 Yes [facility] 1 tab(s) Jacinto margarita 6-27 ANDREY l 02:45: Crestor 2020-0 Yes [facility] 1 tab(s) Memor ia 6-27 ANDREY l 02:45: Lovenox 2020-0 Yes [facility] as Memoria 6-27 ANDREY directed l 02:45: nifedipine 2020-0 Yes [facility] 1 tab(s) Me moria 6-27 ANDREY l 02:45: Tylenol 2020-0 Yes [facility] 2 tab(s) Memor ia 6-27 ANDREY l 02:45: Fleet Enema 2020-0 Yes [facility] 133 mL Mem oria 6- ANDREY l 02:45: Maalox Max 2020-0 Yes [facility] not Memori a 6-27 ANDREY defined l 02:45: senna 2020-0 Yes [facility] 1 tab(s) Memoria 6-27 ANDREY l 02:45: furosemide 2020-0 Yes [facility] 1 tab(s) Me moria 6-27 ANDREY l 02:45: cefazolin 2020-0 Yes [facility] as Memoria 6-27 ANDREY directed l 02:45: calcium 2020-0 Yes [facility] 1 tab(s) Memor ia carbonate 6-27 ANDREY l 02:45: docusate 2020-0 Yes [facility] 1 tab(s) Jacinto margarita 6-27 ANDREY l 02:45: latanoprost 2020-0 Yes [facility] 1 gtt Jacinto margarita ophthalmic 6-27 ANDREY l 02:45: methocarbam 2020-0 Yes [facility] 2 tab(s) M emoria ol 6-27 ANDREY l 02:45: alprazolam 2020-0 Yes [facility] 1 tab(s) Me moria 6-27 ANDREY l 02:45: carvedilol 2020-0 Yes [facility] 1 tab(s) Me moria 6-27 ANDREY l 02:45: irbesartan 2020-0 Yes [facility] 1 tab(s) Me moria - ANDREY l 02:45: insulin 2020-0 Yes [facility] 0 Memoria lispro 12-22 ANDREY l 02:45: Lantus 2020-0 Yes [facility] 0 Memoria 12-22 ANDREY l 02:45: nitroglycer 2020-0 Yes [facility] 1 PATCH Me moria in 12-22 ANDREY l 02:45: potassium 2020-0 Yes [facility] 1 cap(s) Mem oria chloride 12-22 ANDREY l 02:45: Zofran 2020-0 Yes [facility] 1 tab(s) Memori a 12-22 ANDREY l 02:45: gabapentin 2020-0 Yes [facility] 1 cap(s) Me moria 12-22 ANDREY l 02:45: famotidine 2020-0 Yes [facility] 1 tab(s) Me moria 12-22 ANDREY l 02:45: MiraLax 2020-0 Yes [facility] as Memoria 12-22 ANDREY directed l 02:45: Acidophilus 2020-0 Yes [facility] 1 cap(s) M emoria Extra 12-22 ANDREY l Strength 02:45: tramadol 2020-0 Yes [facility] 1 tab(s) Jacinto margarita 12-22 ANDREY l 02:45: Crestor 2020-0 Yes [facility] 1 tab(s) Memor ia 12-22 ANDREY l 02:45: Lovenox 2020-0 Yes [facility] as Memoria 12-22 ANDREY directed l 02:45: nifedipine 2020-0 Yes [facility] 1 tab(s) Me moria 12-22 ANDREY l 02:45: Tylenol 2020-0 Yes [facility] 2 tab(s) Memor ia - ANDREY l 02:45: Fleet Enema 2020-0 Yes [facility] 133 mL Mem oria 12-22 ANDREY l 02:45: Maalox Max 2020-0 Yes [facility]ES[facility] not Memori a 12-22 ANDREY defined l 02:45: senna 2020-0 Yes [facility] 1 tab(s) Memoria 12-22 ANDREY l 02:45: furosemide 2020-0 Yes [facility] 1 tab(s) Me moria 12-22 ANDREY l 02:45: cefazolin 2020-0 Yes [facility] as Memoria 12-22 ANDREY directed l 02:45: calcium 2020-0 Yes [facility] 1 tab(s) Memor ia carbonate 12-22 ANDREY l 02:45: docusate 2020-0 Yes [facility] 1 tab(s) Jacinto margarita 12-22 ANDREY l 02:45: latanoprost 2020-0 Yes [facility] 1 gtt Jacinto margarita ophthalmic 12-22 ANDREY l 02:45: methocarbam 2020-0 Yes [facility] 2 tab(s) M emoria ol 12-22 ANDREY l 02:45: alprazolam 2020-0 Yes [facility] 1 tab(s) Me moria 12-22 ANDREY l 02:45: carvedilol 2020-0 Yes [facility] 1 tab(s) Me moria 12-22 ANDREY l 02:45: irbesartan 2020-0 Yes [facility] 1 tab(s) Me moria 12-22 ANDREY l 02:45: insulin 2020-0 Yes [facility] 0 Memoria lispro 12-22 ANDREY l 02:45: Lantus 2020-0 Yes [facility] 0 Memoria 12-22 NADREY l 02:45: nitroglycer 2020-0 Yes [facility] 1 PATCH Me moria in 12-22 ANDREY l 02:45: potassium 2020-0 Yes [facility] 1 cap(s) Mem oria chloride 12-22 ANDREY l 02:45: Zofran 2020-0 Yes [facility] 1 tab(s) Memori a 12-22 ANDREY l 02:45: gabapentin 2020-0 Yes [facility] 1 cap(s) Me moria 12-22 ANDREY l 02:45: famotidine 2020-0 Yes [facility] 1 tab(s) Me moria - ANDREY l 02:45: MiraLax 2020-0 Yes [facility] as Memoria 6-27 ANDREY directed l 02:45: Acidophilus 2020-0 Yes [facility] 1 cap(s) M emoria Extra 6- ANDREY l Strength 02:45: tramadol 2020-0 Yes [facility] 1 tab(s) Jacinto margarita 6-27 ANDREY l 02:45: Crestor 2020-0 Yes [facility] 1 tab(s) Memor ia - ANDREY l 02:45: Lovenox 2020-0 Yes [facility] as Memoria 6-27 ANDREY directed l 02:45: nifedipine 2020-0 Yes [facility] 1 tab(s) Me moria - ANDREY l 02:45: Tylenol 2020-0 Yes [facility] 2 tab(s) Memor ia - ANDREY l 02:45: Fleet Enema 2020-0 Yes [facility] 133 mL Mem oria - ANDREY l 02:45: Maalox Max 2020-0 Yes [facility] not Memori a 6- ANDREY defined l 02:45: senna 2020-0 Yes [facility] 1 tab(s) Memoria - ANDREY l 02:45: furosemide 2020-0 Yes [facility] 1 tab(s) Me moria - ANDREY l 02:45: cefazolin 2020-0 Yes [facility] as Memoria 6-27 ANDREY directed l 02:45: calcium 2020-0 Yes [facility] 1 tab(s) Memor ia carbonate 6- ANDREY l 02:45: docusate 2020-0 Yes [facility] 1 tab(s) Jacinto margarita 6-27 ANDREY l 02:45: latanoprost 2020-0 Yes [facility] 1 gtt Jacinto margarita ophthalmic 6- ANDREY l 02:45: methocarbam 2020-0 Yes [facility] 2 tab(s) M emoria ol 6- ANDREY l 02:45: alprazolam 2020-0 Yes [facility] 1 tab(s) Me moria 6-27 ANDREY l 02:45: carvedilol 2020-0 Yes [facility] 1 tab(s) Me moria 6-27 ANDREY l 02:45: irbesartan 2020-0 Yes [facility] 1 tab(s) Me moria 6-27 ANDREY l 02:45: insulin 2020-0 Yes [facility] 0 Memoria lispro 6-27 ANDREY l 02:45: Lantus 2020-0 Yes [facility] 0 Memoria -27 ANDREY l 02:45: nitroglycer 2020-0 Yes [facility] 1 PATCH Me moria in - ANDREY l 02:45: potassium 2020-0 Yes [facility] 1 cap(s) Mem oria chloride - ANDREY l 02:45: Zofran 2020-0 Yes [facility] 1 tab(s) Memori a - ANDREY l 02:45: gabapentin 2020-0 Yes [facility] 1 cap(s) Me moria - ANDREY l 02:45: famotidine 2020-0 Yes [facility] 1 tab(s) Me moria 6-27 ANDREY l 02:45: MiraLax 2020-0 Yes [facility] as Memoria - ANDREY directed l 02:45: Acidophilus 2020-0 Yes W[facility] 1 cap(s) M emoria Extra 6- ANDREY l Strength 02:45: tramadol 2020-0 Yes W[facility] 1 tab(s) Jacinto margarita - ANDREY l 02:45: Crestor 2020-0 Yes [facility] 1 tab(s) Memor ia 6-27 ANDREY l 02:45: Lovenox 2020-0 Yes [facility] as Memoria 6-27 ANDREY directed l 02:45: nifedipine 2020-0 Yes [facility] 1 tab(s) Me moria 6-27 ANDREY l 02:45: Tylenol 2020-0 Yes [facility] 2 tab(s) Memor ia 6-27 ANDREY l 02:45: Fleet Enema 2020-0 Yes W[facility] 133 mL Mem oria 6-27 ANDREY l 02:45: Maalox Max 2020-0 Yes WESLEY not Memori a 12-22 ANDREY defined l 02:45: senna 2020-0 Yes [facility] 1 tab(s) Memoria 12-22 ANDREY l 02:45: furosemide 2020-0 Yes [facility] 1 tab(s) Me moria 12-22 ANDREY l 02:45: cefazolin 2020-0 Yes [facility] as Memoria 12-22 ANDREY directed l 02:45: calcium 2020-0 Yes [facility] 1 tab(s) Memor ia carbonate 12-22 ANDREY l 02:45: docusate 2020-0 Yes [facility] 1 tab(s) Jacinto margarita 12-22 ANDREY l 02:45: latanoprost 2020-0 Yes [facility] 1 gtt Jacinto margarita ophthalmic 12-22 ANDREY l 02:45: methocarbam 2020-0 Yes [facility] 2 tab(s) M emoria ol 12-22 ANDREY l 02:45: alprazolam 2020-0 Yes [facility] 1 tab(s) Me moria 12-22 ANDREY l 02:45: carvedilol 2020-0 Yes [facility] 1 tab(s) Me moria 12-22 ANDREY l 02:45: irbesartan 2020-0 Yes [facility] 1 tab(s) Me moria 12-22 ANDREY l 02:45: insulin 2020-0 Yes [facility] 0 Memoria lispro 12-22 ANDREY l 02:45: Lantus 2020-0 Yes [facility] 0 Memoria 12-22 ANDREY l 02:45: nitroglycer 2020-0 Yes [facility] 1 PATCH Me moria in 12-22 ANDREY l 02:45: potassium 2020-0 Yes [facility] 1 cap(s) Mem oria chloride 12-22 ANDREY l 02:45: Zofran 2020-0 Yes [facility] 1 tab(s) Memori a 12-22 ANDREY l 02:45: gabapentin 2020-0 Yes [facility] 1 cap(s) Me moria 6-27 ANDREY l 02:45: famotidine 2020-0 Yes [facility] 1 tab(s) Me moria 6-27 ANDREY l 02:45: MiraLax 2020-0 Yes [facility] as Memoria 6-27 ANDREY directed l 02:45: Acidophilus 2020-0 Yes [facility] 1 cap(s) M emoria Extra 6-27 ANDREY l Strength 02:45: tramadol 2020-0 Yes [facility] 1 tab(s) Jacinto margarita 6-27 ANDREY l 02:45: Crestor 2020-0 Yes [facility] 1 tab(s) Memor ia 6-27 ANDREY l 02:45: Lovenox 2020-0 Yes [facility] as Memoria 6-27 ANDREY directed l 02:45: nifedipine 2020-0 Yes [facility] 1 tab(s) Me moria 6-27 ANDREY l 02:45: Tylenol 2020-0 Yes [facility] 2 tab(s) Memor ia 6-27 ANDREY l 02:45: Fleet Enema 2020-0 Yes [facility] 133 mL Mem oria 6-27 ANDREY l 02:45: Maalox Max 2020-0 Yes [facility] not Memori a 6-27 ANDREY defined l 02:45: senna 2020-0 Yes [facility] 1 tab(s) Memoria 6-27 ANDREY l 02:45: furosemide 2020-0 Yes [facility] 1 tab(s) Me moria 6-27 ANDREY l 02:45: cefazolin 2020-0 Yes [facility] as Memoria 6-27 ANDREY directed l 02:45: calcium 2020-0 Yes [facility] 1 tab(s) Memor ia carbonate 6-27 ANDREY l 02:45: docusate 2020-0 Yes [facility] 1 tab(s) Jacinto margarita 6-27 ANDREY l 02:45: latanoprost 2020-0 Yes [facility] 1 gtt Jacinto margarita ophthalmic 6-27 ANDREY l 02:45: methocarbam 2020-0 Yes [facility] 2 tab(s) M emoria ol - ANDREY l 02:45: alprazolam 2020-0 Yes [facility] 1 tab(s) Me moria -27 ANDREY l 02:45: carvedilol 2020-0 Yes [facility] 1 tab(s) Me moria -27 ANDREY l 02:45: irbesartan 2020-0 Yes [facility] 1 tab(s) Me moria - ANDREY l 02:45: insulin 2020-0 Yes [facility] 0 Memoria lispro 12-22 ANDREY l 02:45: Lantus 2020-0 Yes [facility] 0 Memoria - ANDREY l 02:45: nitroglycer 2020-0 Yes [facility] 1 PATCH Me moria in [...] 02:45: MiraLax 2020-0 Yes [facility] as Memoria 12-22 ANDREY directed l 02:45: Acidophilus 2020-0 Yes [...] tab(s) Me moria -27 ANDREY l 02:45: Tylenol 2020-0 Yes W[facility] 2 tab(s) Memor ia 12-22 ANDREY l 02:45: Fleet Enema 2020-0 Yes [facility] 133 mL Mem oria 12-22 ANDREY l 02:45: Maalox Max 2020-0 Yes W[facility] not Memori a 12-22 ANDREY defined l 02:45: senna 2020-0 Yes [facility] 1 tab(s) Memoria 12-22 ANDREY l 02:45: furosemide 2020-0 Yes [facility] 1 tab(s) Me moria 12-22 ANDREY l 02:45: cefazolin 2020-0 Yes [facility] as Memoria 12-22 ANDREY directed l 02:45: calcium 2020-0 Yes [facility] 1 tab(s) Memor ia carbonate 12-22 ANDREY l 02:45: docusate 2020-0 Yes [facility] 1 tab(s) Jacinto margarita 12-22 ANDREY l 02:45: latanoprost 2020-0 Yes [facility] 1 gtt Jacinto margarita ophthalmic 12-22 ANDREY l 02:45: methocarbam 2020-0 Yes [facility] 2 tab(s) M emoria ol 12-22 ANDREY l 02:45: alprazolam 2020-0 Yes [facility] 1 tab(s) Me moria 12-22 ANDREY l 02:45: carvedilol 2020-0 Yes [facility] 1 tab(s) Me moria 12-22 ANDREY l 02:45: irbesartan 2020-0 Yes [facility] 1 tab(s) Me moria 12-22 ANDREY l 02:45: insulin 2020-0 Yes [facility] 0 Memoria lispro 12-22 ANDREY l 02:45: Lantus 2020-0 Yes [facility] 0 Memoria 12-22 ANDREY l 02:45: nitroglycer 2020-0 Yes [facility] 1 PATCH Me moria in 12-22 ANDREY l 02:45: potassium 2020-0 Yes [facility] 1 cap(s) Mem oria chloride 12-22 ANDREY l 02:45: Zofran 2020-0 Yes [facility] 1 tab(s) Memori a 6-27 ANDREY l 02:45: gabapentin 2020-0 Yes [facility] 1 cap(s) Me moria 6-27 ANDREY l 02:45: famotidine 2020-0 Yes [facility] 1 tab(s) Me moria 6-27 ANDREY l 02:45: MiraLax 2020-0 Yes [facility] as Memoria 6-27 ANDREY directed l 02:45: Acidophilus 2020-0 Yes [facility] 1 cap(s) M emoria Extra 6-27 ANDREY l Strength 02:45: tramadol 2020-0 Yes [facility] 1 tab(s) Jacinto margarita 6-27 ANDREY l 02:45: Crestor 2020-0 Yes [facility] 1 tab(s) Memor ia 6-27 ANDREY l 02:45: Brian Lovenox 2020-0 Yes [facility] as Memoria 6-27 ANDREY directed l 02:45: [place] nifedipine 2020-0 Yes [facility] 1 tab(s) Me moria 6-27 ANDREY l 02:45: Tylenol 2020-0 Yes [facility] 2 tab(s) Memor ia 6-27 ANDREY l 02:45: Brian Fleet Enema 2020-0 Yes [facility] 133 mL Mem oria 6-27 ANDREY l 02:45: Brian Maalox Max 2020-0 Yes [facility] not Memori a 6-27 ANDREY defined l 02:45: [place] senna 2020-0 Yes [facility] 1 tab(s) Memoria 6-27 ANDREY l 02:45: furosemide 2020-0 Yes [facility] 1 tab(s) Me moria 6-27 ANDREY l 02:45: cefazolin 2020-0 Yes [facility] as Memoria 6-27 ANDREY directed l 02:45: calcium 2020-0 Yes [facility] 1 tab(s) Memor ia carbonate 6-27 ANDREY l 02:45: [place] docusate 2020-0 Yes [facility] 1 tab(s) Jacinto margarita 6-27 ANDREY l 02:45: Brian 21 latanoprost 2020-0 Yes [facility] 1 gtt Jacinto margarita ophthalmic - ANDREY l 02:45: methocarbam 2020-0 Yes [facility] 2 tab(s) M emoria ol 12-22 ANDREY l 02:45: alprazolam 2020-0 Yes [facility] 1 tab(s) Me moria -27 ANDREY l 02:45: carvedilol 2020-0 Yes [facility] 1 tab(s) Me moria - ANDREY l 02:45: irbesartan 2020-0 Yes [facility] 1 tab(s) Me moria - ANDREY l 02:45: insulin 2020-0 Yes [facility] 0 Memoria lispro 12-22 ANDREY l 02:45: Lantus 2020-0 Yes [facility] 0 Memoria 12-22 ANDREY l 02:45: nitroglycer 2020-0 Yes [facility] 1 PATCH Me moria in 12-22 ANDREY l 02:45: potassium 2020-0 Yes [facility] 1 cap(s) Mem oria chloride 12-22 ANDREY l 02:45: Zofran 2020-0 Yes [facility] 1 tab(s) Memori a 12-22 ANDREY l 02:45: gabapentin 2020-0 Yes [facility] 1 cap(s) Me moria - ANDREY l 02:45: famotidine 2020-0 Yes [facility] 1 tab(s) Me moria 12-22 ANDREY l 02:45: MiraLax 2020-0 Yes [facility] as Memoria 12-22 ANDREY directed l 02:45: Acidophilus 2020-0 Yes [...] tab(s) Me moria - ANDREY l 02:45: Tylenol 2020-0 Yes [facility] 2 tab(s) Memor ia 12-22 ANDREY l 02:45: Fleet Enema 2020-0 Yes [facility] 133 mL Mem oria 12-22 ANDREY l 02:45: Maalox Max 2020-0 Yes [facility] not Memori a 12-22 ANDREY defined l 02:45: senna 2020-0 Yes [facility] 1 tab(s) Memoria 12-22 ANDREY l 02:45: furosemide 2020-0 Yes [facility] 1 tab(s) Me moria - ANDREY l 02:45: cefazolin 2020-0 Yes [facility] as Memoria 12-22 ANDREY directed l 02:45: calcium 2020-0 Yes [facility] 1 tab(s) Memor ia carbonate 12-22 ANDREY l 02:45: docusate 2020-0 Yes [facility] 1 tab(s) Jacinto margarita 12-22 ANDREY l 02:45: latanoprost 2020-0 Yes [facility] 1 gtt Jacinto margarita ophthalmic 12-22 ANDREY l 02:45: methocarbam 2020-0 Yes [facility] 2 tab(s) M emoria ol 12-22 ANDREY l 02:45: alprazolam 2020-0 Yes [facility] 1 tab(s) Me moria - ANDREY l 02:45: carvedilol 2020-0 Yes [facility] 1 tab(s) Me moria 12-22 ANDREY l 02:45: irbesartan 2020-0 Yes [facility] 1 tab(s) Me moria - ANDREY l 02:45: insulin 2020-0 Yes [facility] 0 Memoria lispro 12-22 ANDREY l 02:45: Lantus 2020-0 Yes [facility] 0 Memoria - ANDREY l 02:45: nitroglycer 2020-0 Yes [facility] 1 PATCH Me moria in 12-22 ANDREY l 02:45: potassium 2020-0 Yes [facility] 1 cap(s) Mem oria chloride 6-27 ANDREY l 02:45: Zofran 2020-0 Yes [facility] 1 tab(s) Memori a 6-27 ANDREY l 02:45: gabapentin 2020-0 Yes [facility] 1 cap(s) Me moria 6-27 ANDREY l 02:45: famotidine 2020-0 Yes [facility] 1 tab(s) Me moria 6-27 ANDREY l 02:45: MiraLax 2020-0 Yes [facility] as Memoria 6-27 ANDREY directed l 02:45: Acidophilus 2020-0 Yes [facility] 1 cap(s) M emoria Extra 6-27 ANDREY l Strength 02:45: tramadol 2020-0 Yes [facility] 1 tab(s) Jacinto margarita 6-27 ANDREY l 02:45: Crestor 2020-0 Yes [facility] 1 tab(s) Memor ia 6-27 ANDREY l 02:45: Lovenox 2020-0 Yes [facility] as Memoria 6-27 ANDREY directed l 02:45: nifedipine 2020-0 Yes [facility] 1 tab(s) Me moria 6-27 ANDREY l 02:45: Tylenol 2020-0 Yes [facility] 2 tab(s) Memor ia 6-27 ANDREY l 02:45: Fleet Enema 2020-0 Yes [facility] 133 mL Mem oria 6-27 ANDREY l 02:45: Maalox Max 2020-0 Yes [facility] not Memori a 6-27 ANDREY defined l 02:45: senna 2020-0 Yes [facility] 1 tab(s) Memoria 6-27 ANDREY l 02:45: furosemide 2020-0 Yes [facility] 1 tab(s) Me moria 6-27 ANDREY l 02:45: cefazolin 2020-0 Yes [facility] as Memoria 6-27 ANDREY directed l 02:45: calcium 2020-0 Yes [facility] 1 tab(s) Memor ia carbonate 6-27 ANDREY l 02:45: docusate 2020-0 Yes [facility] 1 tab(s) Jacinto margarita 6-27 ANDREY l 02:45: latanoprost 2020-0 Yes [facility] 1 gtt Jacinto margarita ophthalmic 6- ANDREY l 02:45: methocarbam 2020-0 Yes [facility] 2 tab(s) M emoria ol 6- ANDREY l 02:45: alprazolam 2020-0 Yes [facility] 1 tab(s) Me moria 6-27 ANDREY l 02:45: carvedilol 2020-0 Yes [facility] 1 tab(s) Me moria 6-27 ANDREY l 02:45: irbesartan 2020-0 Yes [facility] 1 tab(s) Me moria 6-27 ANDREY l 02:45: insulin 2020-0 Yes [facility] 0 Memoria lispro 12-22 ANDREY l 02:45: Lantus 2020-0 Yes [facility] 0 Memoria - ANDREY l 02:45: nitroglycer 2020-0 Yes [facility] 1 PATCH Me moria in 12-22 ANDREY l 02:45: potassium 2020-0 Yes [facility] 1 cap(s) Mem oria chloride 12-22 ANDREY l 02:45: Zofran 2020-0 Yes [facility] 1 tab(s) Memori a 6-27 ANDREY l 02:45: gabapentin 2020-0 Yes [facility] 1 cap(s) Me moria 6-27 ANDREY l 02:45: famotidine 2020-0 Yes [facility] 1 tab(s) Me moria 6-27 ANDREY l 02:45: MiraLax 2020-0 Yes [facility] as Memoria 6-27 ANDREY directed l 02:45: Acidophilus 2020-0 Yes [facility] 1 cap(s) M emoria Extra 6- ANDREY l Strength 02:45: tramadol 2020-0 Yes [facility] 1 tab(s) Jacinto margarita 6-27 ANDRYE l 02:45: Crestor 2020-0 Yes [facility] 1 tab(s) Memor ia 6-27 ANDREY l 02:45: Lovenox 2020-0 Yes [facility] as Memoria 6-27 ANDREY directed l 02:45: nifedipine 2020-0 Yes [facility] 1 tab(s) Me moria 6-27 ANDREY l 02:45: Tylenol 2020-0 Yes [facility] 2 tab(s) Memor ia 6-27 ANDREY l 02:45: Fleet Enema 2020-0 Yes [facility] 133 mL Mem oria - ANDREY l 02:45: Maalox Max 2020-0 Yes [facility] not Memori a 6- ANDREY defined l 02:45: senna 2020-0 Yes [facility] 1 tab(s) Memoria - ANDREY l 02:45: furosemide 2020-0 Yes [facility] 1 tab(s) Me moria 6-27 ANDREY l 02:45: cefazolin 2020-0 Yes [facility] as Memoria - ANDREY directed l 02:45: calcium 2020-0 Yes [facility] 1 tab(s) Memor ia carbonate - ANDREY l 02:45: docusate 2020-0 Yes [facility] 1 tab(s) Jacinto margarita - ANDREY l 02:45: latanoprost 2020-0 Yes [facility] 1 gtt Jacinto margarita ophthalmic - ANDREY l 02:45: methocarbam 2020-0 Yes [facility] 2 tab(s) M emoria ol - ANDREY l 02:45: alprazolam 2020-0 Yes [facility] 1 tab(s) Me moria 6-27 ANDREY l 02:45: carvedilol 2020-0 Yes [facility] 1 tab(s) Me moria 6-27 ANDREY l 02:45: irbesartan 2020-0 Yes [facility] 1 tab(s) Me moria 6-27 ANDREY l 02:45: insulin 2020-0 Yes [facility] 0 Memoria lispro 6-27 ANDREY l 02:45: Lantus 2020-0 Yes [facility] 0 Memoria 6-27 ANDREY l 02:45: [place] 21 ceFAZolin 2 2020-0 Yes 2 gm, IV, M emoria g injection 6-17 Q8H, X 7 l 18:28: day, # 21 Brian 00 ea, 0 Refill(s), other ceFAZolin 2 2020-0 Yes 2 gm, IV, M emoria g injection 6-17 Q8H, X 7 l 18:28: day, # 21 [place] 00 ea, 0 Refill(s), other ceFAZolin 2 2020-0 Yes 2 gm, IV, M emoria g injection 6-17 Q8H, X 7 l 18:28: day, # 21 [place] 00 ea, 0 Refill(s), other ceFAZolin 2 2020-0 Yes 2 gm, IV, M emoria g injection 6-17 Q8H, X 7 l 18:28: day, # 21 Brian 00 ea, 0 Refill(s), other ceFAZolin 2 2020-0 Yes 2 gm, IV, M emoria g injection 6-17 Q8H, X 7 l 18:28: day, # 21 Brian 00 ea, 0 Refill(s), other ceFAZolin 2 2020-0 Yes 2 gm, IV, M emoria g injection 6-17 Q8H, X 7 l 18:28: day, # 21 Brian 00 ea, 0 Refill(s), other ceFAZolin 2 2020-0 Yes 2 gm, IV, M emoria g injection 6-17 Q8H, X 7 l 18:28: day, # 21 Brian 00 ea, 0 Refill(s), other ceFAZolin 2 2020-0 Yes 2 gm, IV, M emoria g injection 6-17 Q8H, X 7 l 18:28: day, # 21 [place] 00 ea, 0 Refill(s), other ceFAZolin 2 2020-0 Yes 2 gm, IV, M emoria g injection 6-17 Q8H, X 7 l 18:28: day, # 21 [place] 00 ea, 0 Refill(s), other ceFAZolin 2 2020-0 Yes 2 gm, IV, M emoria g injection 6-17 Q8H, X 7 l 18:28: day, # 21 Brian 00 ea, 0 Refill(s), other ceFAZolin 2 2020-0 Yes 2 gm, IV, M emoria g injection 6-17 Q8H, X 7 l 18:28: day, # 21 Brian 00 ea, 0 Refill(s), other ceFAZolin 2 2020-0 Yes 2 gm, IV, [...] PRN solution Blood Glucose Results, 0 Refill(s) Insulin 2020-0 Yes 20 unit, Memori a Glargine 6-17 SUB-Q, l 100 UNT/ML 17:33: Daily, 0 Her guzman Injectable 00 Refill(s) Solution insulin 2020-0 Yes 3 unit, Memoria lispro 100 6-17 SUB-Q, l units/mL 17:33: TID-Before Her guzman injectable 00 Meals, PRN solution Blood Glucose Results, 0 Refill(s) Insulin 2020-0 Yes 20 unit, Memori a Glargine 6-17 SUB-Q, l 100 UNT/ML 17:33: Daily, 0 Her guzman Injectable 00 Refill(s) Solution insulin 2020-0 Yes 3 unit, Memoria lispro 100 6-17 SUB-Q, l units/mL 17:33: TID-Before Her guzman injectable 00 Meals, PRN solution Blood Glucose Results, 0 Refill(s) Insulin 2020-0 Yes 20 unit, Memori a Glargine 6-17 SUB-Q, l 100 UNT/ML 17:33: Daily, 0 Her guzman Injectable 00 Refill(s) Solution insulin 2020-0 Yes 3 unit, Memoria lispro 100 6-17 SUB-Q, l units/mL 17:33: TID-Before Her guzman injectable 00 Meals, PRN solution Blood Glucose Results, 0 Refill(s) Insulin 2020-0 Yes 20 unit, Memori a Glargine 6-17 SUB-Q, l 100 UNT/ML 17:33: Daily, 0 Her guzman Injectable 00 Refill(s) Solution insulin 2020-0 Yes 3 unit, Memoria lispro 100 6-17 SUB-Q, l units/mL 17:33: TID-Before Her guzman injectable 00 Meals, PRN solution Blood Glucose Results, 0 Refill(s) Insulin 2020-0 Yes 20 unit, Memori a Glargine 6-17 SUB-Q, l 100 UNT/ML 17:33: Daily, 0 Her guzman Injectable 00 Refill(s) Solution insulin 2020-0 Yes 3 unit, Memoria lispro 100 6-17 SUB-Q, l units/mL 17:33: TID-Before Her guzman injectable 00 Meals, PRN solution Blood Glucose Results, 0 Refill(s) Insulin 2020-0 Yes 20 unit, Memori a Glargine 6-17 SUB-Q, l 100 UNT/ML 17:33: Daily, 0 Her guzman Injectable 00 Refill(s) Solution insulin 2020-0 Yes 3 unit, Memoria lispro 100 6-17 SUB-Q, l units/mL 17:33: TID-Before Her guzman injectable 00 Meals, PRN solution Blood Glucose Results, 0 Refill(s) Insulin 2020-0 Yes 20 unit, Memori a Glargine 6-17 SUB-Q, l 100 UNT/ML 17:33: Daily, 0 Her guzman Injectable 00 Refill(s) Solution insulin 2020-0 Yes 3 unit, Memoria lispro 100 6-17 SUB-Q, l units/mL 17:33: TID-Before Her guzman injectable 00 Meals, PRN solution Blood Glucose Results, 0 Refill(s) Insulin 2020-0 Yes 20 unit, Memori a Glargine 6-17 SUB-Q, l 100 UNT/ML 17:33: Daily, 0 Her guzman Injectable 00 Refill(s) Solution insulin 2020-0 Yes 3 unit, Memoria lispro 100 6-17 SUB-Q, l units/mL 17:33: TID-Before Her guzman injectable 00 Meals, PRN solution Blood Glucose Results, 0 Refill(s) Insulin 2020-0 Yes 20 unit, Memori a Glargine 6-17 SUB-Q, l 100 UNT/ML 17:33: Daily, 0 Her guzman Injectable 00 Refill(s) Solution insulin 2020-0 Yes 3 unit, Memoria lispro 100 6-17 SUB-Q, l units/mL 17:33: TID-Before Her guzman injectable 00 Meals, PRN solution Blood Glucose Results, 0 Refill(s) Insulin 2020-0 Yes 20 unit, Memori a Glargine 6-17 SUB-Q, l 100 UNT/ML 17:33: Daily, 0 Her guzman Injectable 00 Refill(s) Solution insulin 2020-0 Yes 3 unit, Memoria lispro 100 6-17 SUB-Q, l units/mL 17:33: TID-Before Her guzman injectable 00 Meals, PRN solution Blood Glucose Results, 0 Refill(s) Insulin 2020-0 Yes 20 unit, Memori a [...] 16:12: Daily, X 7 H ermann MG/ML day, # 7 Prefilled ea, 0 Syringe Refill(s), [Lovenox] other 0.4 ML 2020-0 Yes 40 mg, Memoria Enoxaparin 6-17 SUB-Q, l sodium 100 16:12: Daily, X 7 H ermann MG/ML day, # 7 Prefilled ea, 0 Syringe Refill(s), [Lovenox] other 0.4 ML 2020-0 Yes 40 mg, Memoria Enoxaparin 6-17 SUB-Q, l sodium 100 16:12: Daily, X 7 H ermann MG/ML 00 day, # 7 Prefilled ea, 0 Syringe Refill(s), [Lovenox] other 0.4 ML 2020-0 Yes 40 mg, Memoria Enoxaparin 6-17 SUB-Q, l sodium 100 16:12: Daily, X 7 H ermann MG/ML 00 day, # 7 Prefilled ea, 0 Syringe Refill(s), [Lovenox] other 0.4 ML 2020-0 Yes 40 mg, Memoria Enoxaparin 6-17 SUB-Q, l sodium 100 16:12: Daily, X 7 H ermann MG/ML 00 day, # 7 Prefilled ea, 0 Syringe Refill(s), [Lovenox] other 0.4 ML 2020-0 Yes 40 mg, Memoria Enoxaparin 6-17 SUB-Q, l sodium 100 16:12: Daily, X 7 H ermann MG/ML 00 day, # 7 Prefilled ea, 0 Syringe Refill(s), [Lovenox] other 0.4 ML 2020-0 Yes 40 mg, Memoria Enoxaparin 6-17 SUB-Q, l sodium 100 16:12: Daily, X 7 H ermann MG/ML 00 day, # 7 Prefilled ea, 0 Syringe Refill(s), [Lovenox] other 0.4 ML 2020-0 Yes 40 mg, Memoria Enoxaparin 6-17 SUB-Q, l sodium 100 16:12: Daily, X 7 H ermann MG/ML 00 day, # 7 Prefilled ea, 0 Syringe Refill(s), [Lovenox] other 0.4 ML 2020-0 Yes 40 mg, Memoria Enoxaparin 6-17 SUB-Q, l sodium 100 16:12: Daily, X 7 H ermann MG/ML 00 day, # 7 Prefilled ea, 0 Syringe Refill(s), [Lovenox] other 0.4 ML 2020-0 Yes 40 mg, Memoria Enoxaparin 6-17 SUB-Q, l sodium 100 16:12: Daily, X 7 H ermann MG/ML 00 day, # 7 Prefilled ea, 0 Syringe Refill(s), [Lovenox] other 0.4 ML 2020-0 Yes 40 mg, Memoria Enoxaparin 6-17 SUB-Q, l sodium 100 16:12: Daily, X 7 H ermann MG/ML 00 day, # 7 Prefilled ea, 0 Syringe Refill(s), [Lovenox] other 0.4 ML 2020-0 Yes 40 mg, Memoria Enoxaparin 6-17 SUB-Q, l sodium 100 16:12: Daily, X 7 H ermann MG/ML 00 day, # 7 Prefilled ea, 0 Syringe Refill(s), [Lovenox] other tramadol 2020-0 No 50 mg = 1 Jacinto margarita hydrochlori 6-17 tab, PO, l de 50 MG 15:05: Q6H, PRN Marika nn Oral Tablet 00 Pain Score 4-6, X 3 day, # 21 tab, 0 Refill(s), Pharmacy: [facility] [address], 160.02, cm, 12/06/19 22:42:00 CDT, Height, 96.364, kg, 12/06/19 22:42:00 CDT, Weight Calcium 2020-0 Yes 500 mg = 1 Jacinto margarita Carbonate 6-17 tab, CHEW, l 500 MG 15:05: TID, PRN Brian Chewable 00 Indigestio Tablet n, 0 Refill(s) Docusate 2019-0 Yes 100 mg = 1 Mem oria Sodium 100 6-17 cap, PO, l MG Oral 15:05: BID, 0 Brian Capsule 00 Refill(s) Ergocalcife 2019-0 Yes 50,000 Jacinto margarita rol [id number] 6-17 IntlUnit = l UNT Oral 15:05: 1 cap, PO, Her guzman Capsule 00 QTue, 0 Refill(s) heparin 2019-0 Yes 5,000 unit Jacinto margarita 6-17 = 1 mL, l 15:05: SUB-Q, [place] 00 Q12H, 0 Refill(s) sennosides, 2020-0 Yes 34.4 mg = M emoria ALF 8.6 MG 6-17 4 tab, PO, l Oral Tablet 15:05: Daily, 0 He rmann 00 Refill(s) Ondansetron 2020-0 Yes 4 mg = 1 Me moria 4 MG Oral 6-17 tab, PO, l Tablet 15:05: Q6H, PRN [place] [Zofran] 00 Nausea/Vom iting, # 30 tab, 0 Refill(s), Pharmacy: [facility] [address], 160.02, cm, 12/06/19 22:42:00 CDT, Height, 96.364, kg, 12/06/19 22:42:00 CDT, Weight tramadol 2019-0 No 50 mg = 1 Jacinto margarita hydrochlori 6-17 tab, PO, l de 50 MG 15:05: Q6H, PRN Marika nn Oral Tablet 00 Pain Score 4-6, X 3 day, # 21 tab, 0 Refill(s), Pharmacy: [facility] [address], 160.02, cm, 12/06/19 22:42:00 CDT, Height, 96.364, kg, 12/06/19 22:42:00 CDT, Weight Calcium 2020-0 Yes 500 mg = 1 Jacinto margarita Carbonate 6-17 tab, CHEW, l 500 MG 15:05: TID, PRN [place] Chewable 00 Indigestio Tablet n, 0 Refill(s) Docusate 2019-0 Yes 100 mg = 1 Mem oria Sodium 100 6-17 cap, PO, l MG Oral 15:05: BID, 0 Brian Capsule 00 Refill(s) Ergocalcife 2019-0 Yes 50,000 Jacinto margarita rol [id number] 6-17 IntlUnit = l UNT Oral 15:05: 1 cap, PO, Her guzman Capsule 00 QTue, 0 Refill(s) heparin 2019-0 Yes 5,000 unit Jacinto margarita 6-17 = 1 mL, l 15:05: SUB-Q, [place] 00 Q12H, 0 Refill(s) sennosides, 2020-0 Yes 34.4 mg = M emoria ALF 8.6 MG 6-17 4 tab, PO, l Oral Tablet 15:05: Daily, 0 He rmann 00 Refill(s) Ondansetron 2019-0 Yes 4 mg = 1 Me moria 4 MG Oral 6-17 tab, PO, l Tablet 15:05: Q6H, PRN Brian [Zofran] 00 Nausea/Vom iting, # 30 tab, 0 Refill(s), Pharmacy: [facility] [address], 160.02, cm, 12/06/19 22:42:00 CDT, Height, 96.364, kg, 12/06/19 22:42:00 CDT, Weight tramadol 2019-0 No 50 mg = 1 Jacinto margarita hydrochlori 6-17 tab, PO, l de 50 MG 15:05: Q6H, PRN Marika nn Oral Tablet 00 Pain Score 4-6, X 3 day, # 21 tab, 0 Refill(s), Pharmacy: [facility] [address], 160.02, cm, 12/06/19 22:42:00 CDT, Height, 96.364, kg, 12/06/19 22:42:00 CDT, Weight Calcium 2020-0 Yes 500 mg = 1 Jacinto margarita Carbonate 6-17 tab, CHEW, l 500 MG 15:05: TID, PRN Brian Chewable 00 Indigestio Tablet n, 0 Refill(s) Docusate 2020-0 Yes 100 mg = 1 Mem oria Sodium 100 6-17 cap, PO, l MG Oral 15:05: BID, 0 [place] Capsule 00 Refill(s) Ergocalcife 2019-0 Yes 50,000 Jacinto margarita rol 31037 6-17 IntlUnit = l UNT Oral 15:05: 1 cap, PO, Her guzman Capsule 00 QTue, 0 Refill(s) heparin 2020-0 Yes 5,000 unit Jacinto margarita 6-17 = 1 mL, l 15:05: SUB-Q, Brian 00 Q12H, 0 Refill(s) sennosides, 2019-0 Yes 34.4 mg = M emoria ALF 8.6 MG 6-17 4 tab, PO, l Oral Tablet 15:05: Daily, 0 He rmann 00 Refill(s) Ondansetron 2019-0 Yes 4 mg = 1 Me moria 4 MG Oral 6-17 tab, PO, l Tablet 15:05: Q6H, PRN [place] [Zofran] 00 Nausea/Vom iting, # 30 tab, 0 Refill(s), Pharmacy: [facility] [address], 160.02, cm, 12/06/19 22:42:00 CDT, Height, 96.364, kg, 12/06/19 22:42:00 CDT, Weight tramadol 2019-0 No 50 mg = 1 Jacinto margarita hydrochlori 6-17 tab, PO, l de 50 MG 15:05: Q6H, PRN Marika nn Oral Tablet 00 Pain Score 4-6, X 3 day, # 21 tab, 0 Refill(s), Pharmacy: [facility] [address], 160.02, cm, 06/10/20 22:42:00 CDT, Height, 96.364, kg, 12/06/19 22:42:00 CDT, Weight Calcium 2020-0 Yes 500 mg = 1 Jacinto margarita Carbonate 6-17 tab, CHEW, l 500 MG 15:05: TID, PRN Brian Chewable 00 Indigestio Tablet n, 0 Refill(s) Docusate 2019-0 Yes 100 mg = 1 Mem oria Sodium 100 6-17 cap, PO, l MG Oral 15:05: BID, 0 [place] Capsule 00 Refill(s) Ergocalcife 2020-0 Yes 50,000 Jacinto margarita rol 28506 6-17 IntlUnit = l UNT Oral 15:05: 1 cap, PO, Her guzman Capsule 00 QTue, 0 Refill(s) heparin 2019-0 Yes 5,000 unit Jacinto margarita 6-17 = 1 mL, l 15:05: SUB-Q, Brian 00 Q12H, 0 Refill(s) sennosides, 2019-0 Yes 34.4 mg = M emoria ALF 8.6 MG 6-17 4 tab, PO, l Oral Tablet 15:05: Daily, 0 He rmann 00 Refill(s) Ondansetron 2019-0 Yes 4 mg = 1 Me moria 4 MG Oral 6-17 tab, PO, l Tablet 15:05: Q6H, PRN Brian [Zofran] 00 Nausea/Vom iting, # 30 tab, 0 Refill(s), Pharmacy: [facility] [address], 160.02, cm, 12/06/19 22:42:00 CDT, Height, 96.364, kg, 12/06/19 22:42:00 CDT, Weight tramadol 2019-0 No 50 mg = 1 Jacinto margarita hydrochlori 6-17 tab, PO, l de 50 MG 15:05: Q6H, PRN Marika nn Oral Tablet 00 Pain Score 4-6, X 3 day, # 21 tab, 0 Refill(s), Pharmacy: [facility] [address], 160.02, cm, 12/06/19 22:42:00 CDT, Height, 96.364, kg, 12/06/19 22:42:00 CDT, Weight Calcium 2019- Yes 500 mg = 1 Jacinto margarita Carbonate 6-17 tab, CHEW, l 500 MG 15:05: TID, PRN [place] Chewable 00 Indigestio Tablet n, 0 Refill(s) Docusate Yes 100 mg = 1 Mem oria Sodium 100 6-17 cap, PO, l MG Oral 15:05: BID, 0 Brian Capsule 00 Refill(s) Ergocalcife Yes 50,000 Jacinto margarita rol 01564 6-17 IntlUnit = l UNT Oral 15:05: 1 cap, PO, Her guzman Capsule 00 QTue, 0 Refill(s) heparin Yes 5,000 unit Jacinto margarita 6-17 = 1 mL, l 15:05: SUB-Q, [place] 00 Q12H, 0 Refill(s) sennosides, Yes 34.4 mg = M emoria ALF 8.6 MG 6-17 4 tab, PO, l Oral Tablet 15:05: Daily, 0 He rmann 00 Refill(s) Ondansetron Yes 4 mg = 1 Me moria 4 MG Oral 6-17 tab, PO, l Tablet 15:05: Q6H, PRN Brian [Zofran] 00 Nausea/Vom iting, # 30 tab, 0 Refill(s), Pharmacy: [facility] [address], 160.02, cm, 12/06/19 22:42:00 CDT, Height, 96.364, kg, 12/06/19 22:42:00 CDT, Weight tramadol No 50 mg = 1 Jacinto margarita hydrochlori 6-17 tab, PO, l de 50 MG 15:05: Q6H, PRN Marika nn Oral Tablet 00 Pain Score 4-6, X 3 day, # 21 tab, 0 Refill(s), Pharmacy: [facility] [address], 160.02, cm, 12/06/19 22:42:00 CDT, Height, 96.364, kg, 12/06/19 22:42:00 CDT, Weight Calcium Yes 500 mg = 1 Jacinto margarita Carbonate 6-17 tab, CHEW, l 500 MG 15:05: TID, PRN Brian Chewable 00 Indigestio Tablet n, 0 Refill(s) Docusate 2019-0 Yes 100 mg = 1 Mem oria Sodium 100 6-17 cap, PO, l MG Oral 15:05: BID, 0 Brian Capsule 00 Refill(s) Ergocalcife 2019-0 Yes 50,000 Jacinto margarita rol 99932 6-17 IntlUnit = l UNT Oral 15:05: 1 cap, PO, Her guzman Capsule 00 QTue, 0 Refill(s) heparin 2019-0 Yes 5,000 unit Jacinto margarita 6-17 = 1 mL, l 15:05: SUB-Q, Brian 00 Q12H, 0 Refill(s) sennosides, 2019-0 Yes 34.4 mg = M emoria ALF 8.6 MG 6-17 4 tab, PO, l Oral Tablet 15:05: Daily, 0 He rmann 00 Refill(s) Ondansetron Yes 4 mg = 1 Me moria 4 MG Oral 6-17 tab, PO, l Tablet 15:05: Q6H, PRN Brian [Zofran] 00 Nausea/Vom iting, # 30 tab, 0 Refill(s), Pharmacy: [facility] [address], 160.02, cm, 12/06/19 22:42:00 CDT, Height, 96.364, kg, 12/06/19 22:42:00 CDT, Weight tramadol 2019- No 50 mg = 1 Jacinto margarita hydrochlori 6-17 tab, PO, l de 50 MG 15:05: Q6H, PRN Marika nn Oral Tablet 00 Pain Score 4-6, X 3 day, # 21 tab, 0 Refill(s), Pharmacy: [facility] [address], 160.02, cm, 12/06/19 22:42:00 CDT, Height, 96.364, kg, 12/06/19 22:42:00 CDT, Weight Calcium 2019-0 Yes 500 mg = 1 Jacinto margarita Carbonate 6-17 tab, CHEW, l 500 MG 15:05: TID, PRN [place] Chewable 00 Indigestio Tablet n, 0 Refill(s) Docusate 2019-0 Yes 100 mg = 1 Mem oria Sodium 100 6-17 cap, PO, l MG Oral 15:05: BID, 0 [place] Capsule 00 Refill(s) Ergocalcife 2020-0 Yes 50,000 Jacinto margarita rol 69827 6-17 IntlUnit = l UNT Oral 15:05: 1 cap, PO, Her guzman Capsule 00 QTue, 0 Refill(s) heparin 2020-0 Yes 5,000 unit Jacinto margarita 6-17 = 1 mL, l 15:05: SUB-Q, Brian 00 Q12H, 0 Refill(s) sennosides, 2020-0 Yes 34.4 mg = M emoria ALF 8.6 MG 6-17 4 tab, PO, l Oral Tablet 15:05: Daily, 0 He rmann 00 Refill(s) Ondansetron 2019-0 Yes 4 mg = 1 Me moria 4 MG Oral 6-17 tab, PO, l Tablet 15:05: Q6H, PRN Brian [Zofran] 00 Nausea/Vom iting, # 30 tab, 0 Refill(s), Pharmacy: [facility] [address], 160.02, cm, 12/06/19 22:42:00 CDT, Height, 96.364, kg, 12/06/19 22:42:00 CDT, Weight tramadol 2019-0 No 50 mg = 1 Jacinto margarita hydrochlori 6-17 tab, PO, l de 50 MG 15:05: Q6H, PRN Marika nn Oral Tablet 00 Pain Score 4-6, X 3 day, # 21 tab, 0 Refill(s), Pharmacy: [facility] [address], 160.02, cm, 12/06/19 22:42:00 CDT, Height, 96.364, kg, 12/06/19 22:42:00 CDT, Weight Calcium 2020-0 Yes 500 mg = 1 Jacinto margarita Carbonate 6-17 tab, CHEW, l 500 MG 15:05: TID, PRN [place] Chewable 00 Indigestio Tablet n, 0 Refill(s) Docusate 2020-0 Yes 100 mg = 1 Mem oria Sodium 100 6-17 cap, PO, l MG Oral 15:05: BID, 0 [place] Capsule 00 Refill(s) Ergocalcife 2020-0 Yes 50,000 Jacinto margarita rol 67261 6-17 IntlUnit = l UNT Oral 15:05: 1 cap, PO, Her guzman Capsule 00 QTue, 0 Refill(s) heparin 2020-0 Yes 5,000 unit Jacinto margarita 6-17 = 1 mL, l 15:05: SUB-Q, [place] 00 Q12H, 0 Refill(s) sennosides, 2020-0 Yes 34.4 mg = M emoria ALF 8.6 MG 6-17 4 tab, PO, l Oral Tablet 15:05: Daily, 0 He rmann 00 Refill(s) Ondansetron 2019-0 Yes 4 mg = 1 Me moria 4 MG Oral 6-17 tab, PO, l Tablet 15:05: Q6H, PRN Brian [Zofran] 00 Nausea/Vom iting, # 30 tab, 0 Refill(s), Pharmacy: [facility] [address], 160.02, cm, 12/06/19 22:42:00 CDT, Height, 96.364, kg, 12/06/19 22:42:00 CDT, Weight tramadol 2019-0 No 50 mg = 1 Jacinto margarita hydrochlori 6-17 tab, PO, l de 50 MG 15:05: Q6H, PRN Marika nn Oral Tablet 00 Pain Score 4-6, X 3 day, # 21 tab, 0 Refill(s), Pharmacy: [facility] [address], 160.02, cm, 12/06/19 22:42:00 CDT, Height, 96.364, kg, 12/06/19 22:42:00 CDT, Weight Calcium 2019-0 Yes 500 mg = 1 Jacinto margarita Carbonate 6-17 tab, CHEW, l 500 MG 15:05: TID, PRN Brian Chewable 00 Indigestio Tablet n, 0 Refill(s) Docusate 2020-0 Yes 100 mg = 1 Mem oria Sodium 100 6-17 cap, PO, l MG Oral 15:05: BID, 0 Brian Capsule 00 Refill(s) Ergocalcife 2020-0 Yes 50,000 Jacinto margarita rol 35903 6-17 IntlUnit = l UNT Oral 15:05: 1 cap, PO, Her guzman Capsule 00 QTue, 0 Refill(s) heparin 2019-0 Yes 5,000 unit Jacinto margarita 6-17 = 1 mL, l 15:05: SUB-Q, [place] 00 Q12H, 0 Refill(s) sennosides, 2019-0 Yes 34.4 mg = M emoria ALF 8.6 MG 6-17 4 tab, PO, l Oral Tablet 15:05: Daily, 0 He rmann 00 Refill(s) Ondansetron Yes 4 mg = 1 Me moria 4 MG Oral 6-17 tab, PO, l Tablet 15:05: Q6H, PRN Brian [Zofran] 00 Nausea/Vom iting, # 30 tab, 0 Refill(s), Pharmacy: [facility] [address], 160.02, cm, 12/06/19 22:42:00 CDT, Height, 96.364, kg, 12/06/19 22:42:00 CDT, Weight tramadol No 50 mg = 1 Jacinto margarita hydrochlori 6-17 tab, PO, l de 50 MG 15:05: Q6H, PRN Marika nn Oral Tablet 00 Pain Score 4-6, X 3 day, # 21 tab, 0 Refill(s), Pharmacy: [facility] [address], 160.02, cm, 12/06/19 22:42:00 CDT, Height, 96.364, kg, 12/06/19 22:42:00 CDT, Weight Calcium 2019- Yes 500 mg = 1 Jacinto margarita Carbonate 6-17 tab, CHEW, l 500 MG 15:05: TID, PRN Brian Chewable 00 Indigestio Tablet n, 0 Refill(s) Docusate 0 Yes 100 mg = 1 Mem oria Sodium 100 6-17 cap, PO, l MG Oral 15:05: BID, 0 [place] Capsule 00 Refill(s) Ergocalcife 2019-0 Yes 50,000 Jacinto margarita rol 94621 6-17 IntlUnit = l UNT Oral 15:05: 1 cap, PO, Her guzman Capsule 00 QTue, 0 Refill(s) heparin 2019-0 Yes 5,000 unit Jacinto margarita 6-17 = 1 mL, l 15:05: SUB-Q, [place] 00 Q12H, 0 Refill(s) sennosides, 2019-0 Yes 34.4 mg = M emoria ALF 8.6 MG 6-17 4 tab, PO, l Oral Tablet 15:05: Daily, 0 He rmann 00 Refill(s) Ondansetron 2019-0 Yes 4 mg = 1 Me moria 4 MG Oral 6-17 tab, PO, l Tablet 15:05: Q6H, PRN Brian [Zofran] 00 Nausea/Vom iting, # 30 tab, 0 Refill(s), Pharmacy: [facility] [address], 160.02, cm, 12/06/19 22:42:00 CDT, Height, 96.364, kg, 12/06/19 22:42:00 CDT, Weight tramadol 2019-0 No 50 mg = 1 Jacinto margarita hydrochlori 6-17 tab, PO, l de 50 MG 15:05: Q6H, PRN Marika nn Oral Tablet 00 Pain Score 4-6, X 3 day, # 21 tab, 0 Refill(s), Pharmacy: [facility] [address], 160.02, cm, 12/06/19 22:42:00 CDT, Height, 96.364, kg, 12/06/19 22:42:00 CDT, Weight Calcium 2020-0 Yes 500 mg = 1 Jacinto margarita Carbonate 6-17 tab, CHEW, l 500 MG 15:05: TID, PRN Brian Chewable 00 Indigestio Tablet n, 0 Refill(s) Docusate 2020-0 Yes 100 mg = 1 Mem oria Sodium 100 6-17 cap, PO, l MG Oral 15:05: BID, 0 [place] Capsule 00 Refill(s) Ergocalcife 2020-0 Yes 50,000 Jacinto margarita rol 53219 6-17 IntlUnit = l UNT Oral 15:05: 1 cap, PO, Her guzman Capsule 00 QTue, 0 Refill(s) heparin 2020-0 Yes 5,000 unit Jacinto margarita 6-17 = 1 mL, l 15:05: SUB-Q, Brian 00 Q12H, 0 Refill(s) sennosides, 2020-0 Yes 34.4 mg = M emoria ALF 8.6 MG 6-17 4 tab, PO, l Oral Tablet 15:05: Daily, 0 He rmann 00 Refill(s) Ondansetron 2019-0 Yes 4 mg = 1 Me moria 4 MG Oral 6-17 tab, PO, l Tablet 15:05: Q6H, PRN [place] [Zofran] 00 Nausea/Vom iting, # 30 tab, 0 Refill(s), Pharmacy: [facility] [address], 160.02, cm, 12/06/19 22:42:00 CDT, Height, 96.364, kg, 12/06/19 22:42:00 CDT, Weight tramadol 2019-0 No 50 mg = 1 Jacinto margarita hydrochlori 6-17 tab, PO, l de 50 MG 15:05: Q6H, PRN Marika nn Oral Tablet 00 Pain Score 4-6, X 3 day, # 21 tab, 0 Refill(s), Pharmacy: [facility] [address], 160.02, cm, 12/06/19 22:42:00 CDT, Height, 96.364, kg, 12/06/19 22:42:00 CDT, Weight Calcium 2019-0 Yes 500 mg = 1 Jacinto margarita Carbonate 6-17 tab, CHEW, l 500 MG 15:05: TID, PRN Brain Chewable 00 Indigestio Tablet n, 0 Refill(s) Docusate 2019-0 Yes 100 mg = 1 Mem oria Sodium 100 6-17 cap, PO, l MG Oral 15:05: BID, 0 Brian Capsule 00 Refill(s) Ergocalcife 2020-0 Yes 50,000 Jacinto margarita rol 51048 6-17 IntlUnit = l UNT Oral 15:05: 1 cap, PO, Her guzman Capsule 00 QTue, 0 Refill(s) heparin 2020-0 Yes 5,000 unit Jacinto margarita 6-17 = 1 mL, l 15:05: SUB-Q, [place] 00 Q12H, 0 Refill(s) sennosides, 2020-0 Yes 34.4 mg = M emoria ALF 8.6 MG 6-17 4 tab, PO, l Oral Tablet 15:05: Daily, 0 He rmann 00 Refill(s) Ondansetron 2019-0 Yes 4 mg = 1 Me moria 4 MG Oral 6-17 tab, PO, l Tablet 15:05: Q6H, PRN [place] [Zofran] 00 Nausea/Vom iting, # 30 tab, 0 Refill(s), Pharmacy: [facility] [address], 160.02, cm, 12/06/19 22:42:00 CDT, Height, 96.364, kg, 12/06/19 22:42:00 CDT, Weight Cefazolin 2020-0 No Notes: Memori a 6-17 (Same As: l 15:00: Ancef, Brian 00 Kefzol) MEDICATION WASTE Product Size: 1000 mg Product Wasted: ___ mg Cefazolin 2020-0 No Notes: Memori a 6-17 (Same As: l 15:00: Ancef, [place] 00 Kefzol) MEDICATION WASTE Product Size: 1000 mg Product Wasted: ___ mg Cefazolin 2020-0 No Notes: Memori a 6-17 (Same As: l 15:00: Ancef, [place] 00 Kefzol) MEDICATION WASTE Product Size: 1000 mg Product Wasted: ___ mg Cefazolin 2020-0 No Notes: Memori a 6-17 (Same As: l 15:00: Ancef, [place] 00 Kefzol) MEDICATION WASTE Product Size: 1000 mg Product Wasted: ___ mg Cefazolin 2020-0 No Notes: Memori a 6-17 (Same As: l 15:00: Ancef, [place] 00 Kefzol) MEDICATION WASTE Product Size: 1000 mg Product Wasted: ___ mg Cefazolin 2020-0 No Notes: Memori a 6-17 (Same As: l 15:00: Ancef, [place] 00 Kefzol) MEDICATION WASTE Product Size: 1000 mg Product Wasted: ___ mg Cefazolin 2020-0 No Notes: Memori a 6-17 (Same As: l 15:00: Ancef, [place] 00 Kefzol) MEDICATION WASTE Product Size: 1000 mg Product Wasted: ___ mg Cefazolin 2020-0 No Notes: Memori a 6-17 (Same As: l 15:00: Ancef, [place] 00 Kefzol) MEDICATION WASTE Product Size: 1000 mg Product Wasted: ___ mg Cefazolin 2020-0 No Notes: Memori a 6-17 (Same As: l 15:00: Ancef, [place] Kefzol) MEDICATION WASTE Product Size: 1000 mg Product Wasted: ___ mg Cefazolin 2020-0 No Notes: Memori a 6-17 (Same As: l 15:00: Ancef, Brian Kefzol) MEDICATION WASTE Product Size: 1000 mg Product Wasted: ___ mg Cefazolin 2020-0 No Notes: Memori a 6-17 (Same As: l 15:00: Ancef, [place] Kefzol) MEDICATION WASTE Product Size: 1000 mg Product Wasted: ___ mg Cefazolin 2020-0 No Notes: Memori a 6-17 (Same As: l 15:00: Ancef, Brian Kefzol) MEDICATION WASTE Product Size: 1000 mg Product Wasted: ___ mg Tums 2020-0 No 500 mg, 1 Memoria 6-17 tab, l 05:18: Route: CHEW, Drug form: CHEWTAB, TID, Dosing Weight 96.364, kg, PRN Indigestio n, Start date: 12/13/19 0:18:00 CDT, Duration: 30 day, Stop date: 01/12/20 0:17:00 CDT, 0 Tums 2020-0 No 500 mg, 1 Memoria 6-17 tab, l 05:18: Route: CHEW, Drug form: CHEWTAB, TID, Dosing Weight 96.364, kg, PRN Indigestio n, Start date: 12/13/19 0:18:00 CDT, Duration: 30 day, Stop date: 01/12/20 0:17:00 CDT, 0 Tums 2020-0 No 500 mg, 1 Memoria 6-17 tab, l 05:18: Route: CHEW, Drug form: CHEWTAB, TID, Dosing Weight 96.364, kg, PRN Indigestio n, Start date: 12/13/19 0:18:00 CDT, Duration: 30 day, Stop date: 01/12/20 0:17:00 CDT, 0 Tums 2020-0 No 500 mg, 1 Memoria 6-17 tab, l 05:18: Route: CHEW, Drug form: CHEWTAB, TID, Dosing Weight 96.364, kg, PRN Indigestio n, Start date: 12/13/19 0:18:00 CDT, Duration: 30 day, Stop date: 01/12/20 0:17:00 CDT, 0 Tums 2020-0 No 500 mg, 1 Memoria 6-17 tab, l 05:18: Route: CHEW, Drug form: CHEWTAB, TID, Dosing Weight 96.364, kg, PRN Indigestio n, Start date: 12/13/19 0:18:00 CDT, Duration: 30 day, Stop date: 01/12/20 0:17:00 CDT, 0 Tums 2020-0 No 500 mg, 1 Memoria 6-17 tab, l 05:18: Route: CHEW, Drug form: CHEWTAB, TID, Dosing Weight 96.364, kg, PRN Indigestio n, Start date: 12/13/19 0:18:00 CDT, Duration: 30 day, Stop date: 01/12/20 0:17:00 CDT, 0 Tums 2020-0 No 500 mg, 1 Memoria 6-17 tab, l 05:18: Route: CHEW, Drug form: CHEWTAB, TID, Dosing Weight 96.364, kg, PRN Indigestio n, Start date: 12/13/19 0:18:00 CDT, Duration: 30 day, Stop date: 01/12/20 0:17:00 CDT, 0 Tums 2020-0 No 500 mg, 1 Memoria 6-17 tab, l 05:18: Route: CHEW, Drug form: CHEWTAB, TID, Dosing Weight 96.364, kg, PRN Indigestio n, Start date: 12/13/19 0:18:00 CDT, Duration: 30 day, Stop date: 01/12/20 0:17:00 CDT, 0 Tums 2020-0 No 500 mg, 1 Memoria 6-17 tab, l 05:18: Route: CHEW, Drug form: CHEWTAB, TID, Dosing Weight 96.364, kg, PRN Indigestio n, Start date: 12/13/19 0:18:00 CDT, Duration: 30 day, Stop date: 01/12/20 0:17:00 CDT, 0 Tums 2020-0 No 500 mg, 1 Memoria 6-17 tab, l 05:18: Route: CHEW, Drug form: CHEWTAB, TID, Dosing Weight 96.364, kg, PRN Indigestio n, Start date: 12/13/19 0:18:00 CDT, Duration: 30 day, Stop date: 01/12/20 0:17:00 CDT, 0 Tums 2020-0 No 500 mg, 1 Memoria 6-17 tab, l 05:18: Route: CHEW, Drug form: CHEWTAB, TID, Dosing Weight 96.364, kg, PRN Indigestio n, Start date: 12/13/19 0:18:00 CDT, Duration: 30 day, Stop date: 01/12/20 0:17:00 CDT, 0 Tums 2020-0 No 500 mg, 1 Memoria 6-17 tab, l 05:18: Route: CHEW, Drug form: CHEWTAB, TID, Dosing Weight 96.364, kg, PRN Indigestio n, Start date: 12/13/19 0:18:00 CDT, Duration: 30 day, Stop date: 01/12/20 0:17:00 CDT, 0 calcium 2020-0 Yes 500mg 500 mg. As [facility] carbonate 6-[address] (TUMS) 200 00:00: Hospita mg calcium 00 l (500 mg) chewable tablet calcium 2020-0 Yes 500mg Q.5D 1 tablet Metho di carbonate 6-17 ([address] (TUMS) 200 00:00: total) 2 [facility] mg calcium 00 (two) l (500 mg) times a chewable day. tablet calcium 2020-0 Yes 500mg Q.5D 1 tablet Metho di carbonate 6-17 ([address] (TUMS) 200 00:00: total) 2 [facility] mg calcium 00 (two) l (500 mg) times a chewable day. tablet ergocalcife 2020-0 No 95459[i 50,000 Methodi rol 6-17 07-08 U] Int'l st (VITAMIN 00:00: 00:00 Units. Hospit a D2) 50,000 00 :00 Once a l unit week capsule Vitamin D2 2020-0 No Notes: Memor ia 6-16 (Same as: l 14:00: Vitamin D) [place] 00 "Do Not Crush" Vitamin D2 2020-0 No Notes: Memor ia 6-16 (Same as: l 14:00: Vitamin D) Brian 00 "Do Not Crush" Vitamin D2 2020-0 No Notes: Memor ia 6-16 (Same as: l 14:00: Vitamin D) [place] 00 "Do Not Crush" Vitamin D2 2020-0 No Notes: Memor ia 6-16 (Same as: l 14:00: Vitamin D) [place] 00 "Do Not Crush" Vitamin D2 2020-0 No Notes: Memor ia 6-16 (Same as: l 14:00: Vitamin D) [place] 00 "Do Not Crush" Vitamin D2 2020-0 No Notes: Memor ia 6-16 (Same as: l 14:00: Vitamin D) Brian 00 "Do Not Crush" Vitamin D2 2020-0 No Notes: Memor ia 6-16 (Same as: l 14:00: Vitamin D) [place] 00 "Do Not Crush" Vitamin D2 2020-0 No Notes: Memor ia 6-16 (Same as: l 14:00: Vitamin D) Brian 00 "Do Not Crush" Vitamin D2 2020-0 No Notes: Memor ia 6-16 (Same as: l 14:00: Vitamin D) [place] 00 "Do Not Crush" Vitamin D2 2020-0 No Notes: Memor ia 6-16 (Same as: l 14:00: Vitamin D) [place] 00 "Do Not Crush" Vitamin D2 2020-0 No Notes: Memor ia 6-16 (Same as: l 14:00: Vitamin D) [place] 00 "Do Not Crush" Vitamin D2 2020-0 No Notes: Memor ia 6-16 (Same as: l 14:00: Vitamin D) Brian 00 "Do Not Crush" Clindamycin 2020-0 No Notes: Jacinto margarita 6-14 (Same As: l 14:00: Cleocin) [place] Clindamycin 0 No Notes: Jacinto margarita 6-14 (Same As: l 14:00: Cleocin) Brian 00 Clindamycin No Notes: Jacinto margarita 6-14 (Same As: l 14:00: Cleocin) [place] 00 Clindamycin No Notes: Jacinto margarita 6-14 (Same As: l 14:00: Cleocin) [place] 00 Clindamycin No Notes: Jacinto margarita 6-14 (Same As: l 14:00: Cleocin) [place] 00 Clindamycin No Notes: Jacinto margarita 6-14 (Same As: l 14:00: Cleocin) Brian 00 Clindamycin No Notes: Jacinto margarita 6-14 (Same As: l 14:00: Cleocin) Brian 00 Clindamycin No Notes: Jacinto margarita 6-14 (Same As: l 14:00: Cleocin) Brian 00 Clindamycin No Notes: Jacinto margarita 6-14 (Same As: l 14:00: Cleocin) [place] 00 Clindamycin No Notes: Jacinto margarita 6-14 (Same As: l 14:00: Cleocin) Brian 00 Clindamycin 0 No Notes: Jacinto margarita 6-14 (Same As: l 14:00: Cleocin) [place] 00 Clindamycin No Notes: Jacinto margarita 6-14 (Same As: l 14:00: Cleocin) [place] 00 Docusate No Notes: Memoria 6-13 (Same as: l 14:00: Colace) [place] (Do Not Crush) Docusate No Notes: Memoria 6-13 (Same as: l 14:00: Colace) [place] (Do Not Crush) Docusate No Notes: Memoria 6-13 (Same as: l 14:00: Colace) [place] (Do Not Crush) Docusate No Notes: Memoria 6-13 (Same as: l 14:00: Colace) Brian (Do Not Crush) Docusate 0 No Notes: Memoria 6-13 (Same as: l 14:00: Colace) [place] 00 (Do Not Crush) Docusate 0 No Notes: Memoria 6-13 (Same as: l 14:00: Colace) Brian 00 (Do Not Crush) Docusate 0 No Notes: Memoria 6-13 (Same as: l 14:00: Colace) [place] 00 (Do Not Crush) Docusate 0 No Notes: Memoria 6-13 (Same as: l 14:00: Colace) [place] 00 (Do Not Crush) Docusate 0 No Notes: Memoria 6-13 (Same as: l 14:00: Colace) Brian 00 (Do Not Crush) Docusate No Notes: Memoria 6-13 (Same as: l 14:00: Colace) [place] 00 (Do Not Crush) Docusate No Notes: Memoria 6-13 (Same as: l 14:00: Colace) Brian 00 (Do Not Crush) Docusate No Notes: Memoria 6-13 (Same as: l 14:00: Colace) Brian 00 (Do Not Crush) metoclopram 20200 No Route: IV, Memoria renetta (ANES) 6-13 Drug form: l 01:10: INJ, ONCE, Brian Stop date: 12/08/19 20:10:00 CDT ondansetron 2020-0 No Route: IV, Memoria (ANES) 6-13 Drug form: l 01:10: INJ, ONCE, [place] Stop date: 12/08/19 20:10:00 CDT metoclopram 2020-0 No Route: IV, Memoria renetta (ANES) 6-13 Drug form: l 01:10: INJ, ONCE, Brian Stop date: 12/08/19 20:10:00 CDT ondansetron 2020-0 No Route: IV, Memoria (ANES) 6-13 Drug form: l 01:10: INJ, ONCE, [place] Stop date: 12/08/19 20:10:00 CDT metoclopram 2020-0 No Route: IV, Memoria renetta (ANES) 6-13 Drug form: l 01:10: INJ, ONCE, Stop date: 12/08/19 20:10:00 CDT ondansetron 2020-0 No Route: IV, Memoria (ANES) 6-13 Drug form: l 01:10: INJ, ONCE, Stop date: 12/08/19 20:10:00 CDT metoclopram 2020-0 No Route: IV, Memoria renetta (ANES) 6-13 Drug form: l 01:10: INJ, ONCE, Stop date: 12/08/19 20:10:00 CDT ondansetron 2020-0 No Route: IV, Memoria (ANES) 6-13 Drug form: l 01:10: INJ, ONCE, Stop date: 12/08/19 20:10:00 CDT metoclopram 2020-0 No Route: IV, Memoria renetta (ANES) 6-13 Drug form: l 01:10: INJ, ONCE, Stop date: 12/08/19 20:10:00 CDT ondansetron 2020-0 No Route: IV, Memoria (ANES) 6-13 Drug form: l 01:10: INJ, ONCE, Stop date: 12/08/19 20:10:00 CDT metoclopram 2020-0 No Route: IV, Memoria renetta (ANES) 6-13 Drug form: l 01:10: INJ, ONCE, Stop date: 12/08/19 20:10:00 CDT ondansetron 2020-0 No Route: IV, Memoria (ANES) 6-13 Drug form: l 01:10: INJ, ONCE, Stop date: 12/08/19 20:10:00 CDT metoclopram 2020-0 No Route: IV, Memoria renetta (ANES) 6-13 Drug form: l 01:10: INJ, ONCE, Stop date: 12/08/19 20:10:00 CDT ondansetron 2020-0 No Route: IV, Memoria (ANES) 6-13 Drug form: l 01:10: INJ, ONCE, Stop date: 12/08/19 20:10:00 CDT metoclopram 2020-0 No Route: IV, Memoria renetta (ANES) 6-13 Drug form: l 01:10: INJ, ONCE, Stop date: 12/08/19 20:10:00 CDT ondansetron 2020-0 No Route: IV, Memoria (ANES) 6-13 Drug form: l 01:10: INJ, ONCE, Stop date: 12/08/19 20:10:00 CDT metoclopram 2020-0 No Route: IV, Memoria renetta (ANES) 6-13 Drug form: l 01:10: INJ, ONCE, Stop date: 12/08/19 20:10:00 CDT ondansetron 2020-0 No Route: IV, Memoria (ANES) 6-13 Drug form: l 01:10: INJ, ONCE, Stop date: 12/08/19 20:10:00 CDT metoclopram 2020-0 No Route: IV, Memoria renetta (ANES) 6-13 Drug form: l 01:10: INJ, ONCE, Stop date: 12/08/19 20:10:00 CDT ondansetron 2020-0 No Route: IV, Memoria (ANES) 6-13 Drug form: l 01:10: INJ, ONCE, Stop date: 12/08/19 20:10:00 CDT metoclopram 2020-0 No Route: IV, Memoria renetta (ANES) 6-13 Drug form: l 01:10: INJ, ONCE, Stop date: 12/08/19 20:10:00 CDT ondansetron 2020-0 No Route: IV, Memoria (ANES) 6-13 Drug form: l 01:10: INJ, ONCE, Stop date: 12/08/19 20:10:00 CDT metoclopram 2020-0 No Route: IV, Memoria renetta (ANES) 6-13 Drug form: l 01:10: INJ, ONCE, Stop date: 12/08/19 20:10:00 CDT ondansetron 2020-0 No Route: IV, Memoria (ANES) 6-13 Drug form: l 01:10: INJ, ONCE, Stop date: 12/08/19 20:10:00 CDT phenylephri 2020-0 No Route: IV, Memoria ne (ANES) 6-13 Drug form: l 01:05: INJ, ONCE, Stop date: 12/08/19 20:05:00 CDT phenylephri 2020-0 No Route: IV, Memoria ne (ANES) 6-13 Drug form: l 01:05: INJ, ONCE, Stop date: 12/08/19 20:05:00 CDT phenylephri 2020-0 No Route: IV, Memoria ne (ANES) 6-13 Drug form: l 01:05: INJ, ONCE, Stop date: 12/08/19 20:05:00 CDT phenylephri 2020-0 No Route: IV, Memoria ne (ANES) 6-13 Drug form: l 01:05: INJ, ONCE, Stop date: 12/08/19 20:05:00 CDT phenylephri 2020-0 No Route: IV, Memoria ne (ANES) 6-13 Drug form: l 01:05: INJ, ONCE, Stop date: 12/08/19 20:05:00 CDT phenylephri 2020-0 No Route: IV, Memoria ne (ANES) 6-13 Drug form: l 01:05: INJ, ONCE, Stop date: 12/08/19 20:05:00 CDT phenylephri 2020-0 No Route: IV, Memoria ne (ANES) 6-13 Drug form: l 01:05: INJ, ONCE, Stop date: 12/08/19 20:05:00 CDT phenylephri 2020-0 No Route: IV, Memoria ne (ANES) 6-13 Drug form: l 01:05: INJ, ONCE, Stop date: 12/08/19 20:05:00 CDT phenylephri 2020-0 No Route: IV, Memoria ne (ANES) 6-13 Drug form: l 01:05: INJ, ONCE, Stop date: 12/08/19 20:05:00 CDT phenylephri 2020-0 No Route: IV, Memoria ne (ANES) 6-13 Drug form: l 01:05: INJ, ONCE, Stop date: 12/08/19 20:05:00 CDT phenylephri 2020-0 No Route: IV, Memoria ne (ANES) 6- Drug form: l 01:05: INJ, ONCE, Stop date: 12/08/19 20:05:00 CDT phenylephri 2020-0 No Route: IV, Memoria ne (ANES) 6- Drug form: l 01:05: INJ, ONCE, Stop date: 12/08/19 20:05:00 CDT lidocaine 2020-0 No Route: IV, Me moria (ANES) 6- Drug form: l 00:50: INJ, ONCE, Stop date: 12/08/19 19:50:00 CDT propofol 2020-0 No Route: IV, Mem oria (ANES) 6- Drug form: l 00:50: INJ, ONCE, Stop date: 12/08/19 19:50:00 CDT succinylcho 2020-0 No Route: IV, Memoria line (ANES) 6- Drug form: l 00:50: INJ, ONCE, Stop date: 12/08/19 19:50:00 CDT rocuronium 2020-0 No Route: IV, M emoria (ANES) 6- Drug form: l 00:50: INJ, ONCE, Stop date: 12/08/19 19:50:00 CDT lidocaine 2020-0 No Route: IV, Me moria (ANES) 6- Drug form: l 00:50: INJ, ONCE, Stop date: 12/08/19 19:50:00 CDT propofol 2020-0 No Route: IV, Mem oria (ANES) 6- Drug form: l 00:50: INJ, ONCE, Stop date: 12/08/19 19:50:00 CDT succinylcho 2020-0 No Route: IV, Memoria line (ANES) 6- Drug form: l 00:50: INJ, ONCE, Stop date: 12/08/19 19:50:00 CDT rocuronium 2020-0 No Route: IV, M emoria (ANES) 6- Drug form: l 00:50: INJ, ONCE, Stop date: 12/08/19 19:50:00 CDT lidocaine 2020-0 No Route: IV, Me moria (ANES) 6-13 Drug form: l 00:50: INJ, ONCE, Stop date: 12/08/19 19:50:00 CDT propofol 2020-0 No Route: IV, Mem oria (ANES) 6-13 Drug form: l 00:50: INJ, ONCE, Stop date: 12/08/19 19:50:00 CDT succinylcho 2020-0 No Route: IV, Memoria line (ANES) 6- Drug form: l 00:50: INJ, ONCE, Stop date: 12/08/19 19:50:00 CDT rocuronium 2020-0 No Route: IV, M emoria (ANES) 6-13 Drug form: l 00:50: INJ, ONCE, Stop date: 12/08/19 19:50:00 CDT lidocaine 2020-0 No Route: IV, Me moria (ANES) 6- Drug form: l 00:50: INJ, ONCE, Stop date: 12/08/19 19:50:00 CDT propofol 2020-0 No Route: IV, Mem oria (ANES) 6-13 Drug form: l 00:50: INJ, ONCE, Stop date: 12/08/19 19:50:00 CDT succinylcho 2020-0 No Route: IV, Memoria line (ANES) 6- Drug form: l 00:50: INJ, ONCE, Stop date: 12/08/19 19:50:00 CDT rocuronium 2020-0 No Route: IV, Elaine emoria (ANES) 6-13 Drug form: l 00:50: INJ, ONCE, Stop date: 12/08/19 19:50:00 CDT lidocaine 2020-0 No Route: IV, Me moria (ANES) 6-13 Drug form: l 00:50: INJ, ONCE, Stop date: 12/08/19 19:50:00 CDT propofol 2020-0 No Route: IV, Mem oria (ANES) 6-13 Drug form: l 00:50: INJ, ONCE, Stop date: 12/08/19 19:50:00 CDT succinylcho 2020-0 No Route: IV, Memoria line (ANES) 6-13 Drug form: l 00:50: INJ, ONCE, Stop date: 12/08/19 19:50:00 CDT rocuronium 2020-0 No Route: IV, M emoria (ANES) 6- Drug form: l 00:50: INJ, ONCE, Stop date: 12/08/19 19:50:00 CDT lidocaine 2020-0 No Route: IV, Me moria (ANES) 6- Drug form: l 00:50: INJ, ONCE, Stop date: 12/08/19 19:50:00 CDT propofol 2020-0 No Route: IV, Mem oria (ANES) 6- Drug form: l 00:50: INJ, ONCE, Stop date: 12/08/19 19:50:00 CDT succinylcho 2020-0 No Route: IV, Memoria line (ANES) 6- Drug form: l 00:50: INJ, ONCE, Stop date: 12/08/19 19:50:00 CDT rocuronium 2020-0 No Route: IV, M emoria (ANES) 6- Drug form: l 00:50: INJ, ONCE, Stop date: 12/08/19 19:50:00 CDT lidocaine 2020-0 No Route: IV, Me moria (ANES) 6- Drug form: l 00:50: INJ, ONCE, Stop date: 12/08/19 19:50:00 CDT propofol 2020-0 No Route: IV, Mem oria (ANES) 6- Drug form: l 00:50: INJ, ONCE, Stop date: 12/08/19 19:50:00 CDT succinylcho 2020-0 No Route: IV, Memoria line (ANES) 6-13 Drug form: l 00:50: INJ, ONCE, Stop date: 12/08/19 19:50:00 CDT rocuronium 2020-0 No Route: IV, M emoria (ANES) 6- Drug form: l 00:50: INJ, ONCE, Stop date: 12/08/19 19:50:00 CDT lidocaine 2020-0 No Route: IV, Me moria (ANES) 6-13 Drug form: l 00:50: INJ, ONCE, Stop date: 12/08/19 19:50:00 CDT propofol 2020-0 No Route: IV, Mem oria (ANES) 6-13 Drug form: l 00:50: INJ, ONCE, Stop date: 12/08/19 19:50:00 CDT succinylcho 2020-0 No Route: IV, Memoria line (ANES) 6-13 Drug form: l 00:50: INJ, ONCE, Stop date: 12/08/19 19:50:00 CDT rocuronium 2020-0 No Route: IV, M emoria (ANES) 6-13 Drug form: l 00:50: INJ, ONCE, Stop date: 12/08/19 19:50:00 CDT lidocaine 2020-0 No Route: IV, Me moria (ANES) 6-13 Drug form: l 00:50: INJ, ONCE, Stop date: 12/08/19 19:50:00 CDT propofol 2020-0 No Route: IV, Mem oria (ANES) 6-13 Drug form: l 00:50: INJ, ONCE, Stop date: 12/08/19 19:50:00 CDT succinylcho 2020-0 No Route: IV, Memoria line (ANES) 6-13 Drug form: l 00:50: INJ, ONCE, Stop date: 12/08/19 19:50:00 CDT rocuronium 2020-0 No Route: IV, M emoria (ANES) 6-13 Drug form: l 00:50: INJ, ONCE, Stop date: 12/08/19 19:50:00 CDT lidocaine 2020-0 No Route: IV, Me moria (ANES) 6-13 Drug form: l 00:50: INJ, ONCE, Stop date: 12/08/19 19:50:00 CDT propofol 2020-0 No Route: IV, Mem oria (ANES) 6-13 Drug form: l 00:50: INJ, ONCE, Stop date: 12/08/19 19:50:00 CDT succinylcho 2020-0 No Route: IV, Memoria line (ANES) 6- Drug form: l 00:50: INJ, ONCE, Stop date: 12/08/19 19:50:00 CDT rocuronium 2020-0 No Route: IV, M emoria (ANES) 6- Drug form: l 00:50: INJ, ONCE, Stop date: 12/08/19 19:50:00 CDT lidocaine 2020-0 No Route: IV, Me moria (ANES) 6- Drug form: l 00:50: INJ, ONCE, Stop date: 12/08/19 19:50:00 CDT propofol 2020-0 No Route: IV, Mem oria (ANES) 6- Drug form: l 00:50: INJ, ONCE, Stop date: 12/08/19 19:50:00 CDT succinylcho 2020-0 No Route: IV, Memoria line (ANES) 6- Drug form: l 00:50: INJ, ONCE, Stop date: 12/08/19 19:50:00 CDT rocuronium 2020-0 No Route: IV, M emoria (ANES) 6- Drug form: l 00:50: INJ, ONCE, Stop date: 12/08/19 19:50:00 CDT lidocaine 2020-0 No Route: IV, Me moria (ANES) 6- Drug form: l 00:50: INJ, ONCE, Stop date: 12/08/19 19:50:00 CDT propofol 2020-0 No Route: IV, Mem oria (ANES) 6- Drug form: l 00:50: INJ, ONCE, Stop date: 12/08/19 19:50:00 CDT succinylcho 2020-0 No Route: IV, Memoria line (ANES) 6-13 Drug form: l 00:50: INJ, ONCE, Stop date: 12/08/19 19:50:00 CDT rocuronium 2020-0 No Route: IV, M emoria (ANES) 6- Drug form: l 00:50: INJ, ONCE, Stop date: 12/08/19 19:50:00 CDT fentaNYL 2020-0 No Route: IV, Mem oria (ANES) 6-13 Drug form: l 00:49: INJ, ONCE, Stop date: 12/08/19 19:49:00 CDT fentaNYL 2020-0 No Route: IV, Mem oria (ANES) 6-13 Drug form: l 00:49: INJ, ONCE, Stop date: 12/08/19 19:49:00 CDT fentaNYL 2020-0 No Route: IV, Mem oria (ANES) 6-13 Drug form: l 00:49: INJ, ONCE, Stop date: 12/08/19 19:49:00 CDT fentaNYL 2020-0 No Route: IV, Mem oria (ANES) 6-13 Drug form: l 00:49: INJ, ONCE, Stop date: 12/08/19 19:49:00 CDT fentaNYL 2020-0 No Route: IV, Mem oria (ANES) 6-13 Drug form: l 00:49: INJ, ONCE, Stop date: 12/08/19 19:49:00 CDT fentaNYL 2020-0 No Route: IV, Mem oria (ANES) 6-13 Drug form: l 00:49: INJ, ONCE, Stop date: 12/08/19 19:49:00 CDT fentaNYL 2020-0 No Route: IV, Mem oria (ANES) 6-13 Drug form: l 00:49: INJ, ONCE, Stop date: 12/08/19 19:49:00 CDT fentaNYL 2020-0 No Route: IV, Mem oria (ANES) 6-13 Drug form: l 00:49: INJ, ONCE, Stop date: 12/08/19 19:49:00 CDT fentaNYL 2020-0 No Route: IV, Mem oria (ANES) 6-13 Drug form: l 00:49: INJ, ONCE, Stop date: 12/08/19 19:49:00 CDT fentaNYL 2020-0 No Route: IV, Mem oria (ANES) 6-13 Drug form: l 00:49: INJ, ONCE, Stop date: 12/08/19 19:49:00 CDT fentaNYL 2020-0 No Route: IV, Mem oria (ANES) 6- Drug form: l 00:49: INJ, ONCE, [place] 00 Stop date: 12/08/19 19:49:00 CDT fentaNYL 2019-0 No Route: IV, Mem oria (ANES) 6-13 Drug form: l 00:49: INJ, ONCE, Brian 00 Stop date: 12/08/19 19:49:00 CDT midazolam 2019-0 No Route: IV, Me moria (ANES) 6- Drug form: l 00:44: SOLN, Brian 00 ONCE, Stop date: 12/08/19 19:44:00 CDT fentaNYL 2019-0 No Route: IV, Mem oria (ANES) 6- Drug form: l 00:44: INJ, ONCE, [place] 00 Stop date: 12/08/19 19:44:00 CDT Morphine 2019-0 No Notes: Memoria 6-13 (Same l 00:44: as:MORPhin e Sulfate) Hydromorpho 2019-0 No Notes: Jacinto margarita ne 6-13 Same as: l 00:44: Dilaudid Flumazenil 2019-0 No Notes: Memor ia 6-13 (Same as: l 00:44: Romazicon) Naloxone 2019-0 No Notes: Memoria 6-13 Same as l 00:44: Narcan Ephedrine 2019-0 No Notes: Memori a 6-13 final l 00:44: concentrat ion 5 mg/mL Diphenhydra 2019-0 No Notes: Jacinto margarita mine 6-13 (Same as: l 00:44: Benadryl) Meperidine 2019-0 No Notes: Memor ia 6-13 (Same as: l 00:44: Demerol) "Use Precaution in Elderly, Seizure disorders, and Renal impairment " Ondansetron 2019-0 No Notes: Jacinto margarita 6-13 (Same as: l 00:44: Zofran) MEDICATION WASTE Product Size: 4 mg Product Wasted: ___ mg midazolam 2019-0 No Route: IV, Me moria (ANES) 6-13 Drug form: l 00:44: SOLN, [place] 00 ONCE, Stop date: 12/08/19 19:44:00 CDT fentaNYL 2020-0 No Route: IV, Mem oria (ANES) 6-13 Drug form: l 00:44: INJ, ONCE, Brian 00 Stop date: 12/08/19 19:44:00 CDT Morphine 2020-0 No Notes: Memoria 6-13 (Same l 00:44: as:MORPhin e Sulfate) Hydromorpho 2019-0 No Notes: Jacinto margarita ne 6-13 Same as: l 00:44: Dilaudid Flumazenil 2019-0 No Notes: Memor ia 6-13 (Same as: l 00:44: Romazicon) Naloxone 2019-0 No Notes: Memoria 6-13 Same as l 00:44: Narcan Ephedrine 2019-0 No Notes: Memori a 6-13 final l 00:44: concentrat ion 5 mg/mL Diphenhydra 2019-0 No Notes: Jacinto margarita mine 6-13 (Same as: l 00:44: Benadryl) Meperidine 2019-0 No Notes: Memor ia 6-13 (Same as: l 00:44: Demerol) "Use Precaution in Elderly, Seizure disorders, and Renal impairment " Ondansetron No Notes: Jacinto margarita 6-13 (Same as: l 00:44: Zofran) MEDICATION WASTE Product Size: 4 mg Product Wasted: ___ mg midazolam 2020-0 No Route: IV, Me moria (ANES) 6- Drug form: l 00:44: SOLN, [place] 00 ONCE, Stop date: 12/08/19 19:44:00 CDT fentaNYL 2020-0 No Route: IV, Mem oria (ANES) 6-13 Drug form: l 00:44: INJ, ONCE, Brian 00 Stop date: 12/08/19 19:44:00 CDT Morphine 2020-0 No Notes: Memoria 6-13 (Same l 00:44: as:MORPhin 00 e Sulfate) Hydromorpho 2020-0 No Notes: Jacinto margarita ne 6-13 Same as: l 00:44: Dilaudid Flumazenil 2020-0 No Notes: Memor ia 6-13 (Same as: l 00:44: Romazicon) Naloxone 2020-0 No Notes: Memoria 6-13 Same as l 00:44: Narcan Ephedrine 2020-0 No Notes: Memori a 6-13 final l 00:44: concentrat Brian 00 ion 5 mg/mL Diphenhydra 2020-0 No Notes: Jacinto margarita mine 6-13 (Same as: l 00:44: Benadryl) Meperidine 2019-0 No Notes: Memor ia 6-13 (Same as: l 00:44: Demerol) "Use Precaution in Elderly, Seizure disorders, and Renal impairment " Ondansetron 2019-0 No Notes: Jacinto margarita 6-13 (Same as: l 00:44: Zofran) MEDICATION WASTE Product Size: 4 mg Product Wasted: ___ mg midazolam 2020-0 No Route: IV, Me moria (ANES) 6- Drug form: l 00:44: SOLN, [place] 00 ONCE, Stop date: 12/08/19 19:44:00 CDT fentaNYL 2020-0 No Route: IV, Mem oria (ANES) 6- Drug form: l 00:44: INJ, ONCE, [place] 00 Stop date: 12/08/19 19:44:00 CDT Morphine 2020-0 No Notes: Memoria 6-13 (Same l 00:44: as:MORPhin e Sulfate) Hydromorpho 2020-0 No Notes: Jacinto margarita ne 6-13 Same as: l 00:44: Dilaudid Flumazenil 2020-0 No Notes: Memor ia 6-13 (Same as: l 00:44: Romazicon) Naloxone 2020-0 No Notes: Memoria 6-13 Same as l 00:44: Narcan Ephedrine 2020-0 No Notes: Memori a 6-13 final l 00:44: concentrat ion 5 mg/mL Diphenhydra 2020-0 No Notes: Jacinto margarita mine 6-13 (Same as: l 00:44: Benadryl) Meperidine 2019-0 No Notes: Memor ia 6-13 (Same as: l 00:44: Demerol) "Use Precaution in Elderly, Seizure disorders, and Renal impairment " Ondansetron 2019-0 No Notes: Jacinto margarita 6-13 (Same as: l 00:44: Zofran) MEDICATION WASTE Product Size: 4 mg Product Wasted: ___ mg midazolam 2019-0 No Route: IV, Me moria (ANES) 6- Drug form: l 00:44: SOLN, [place] 00 ONCE, Stop date: 12/08/19 19:44:00 CDT fentaNYL 2019-0 No Route: IV, Mem oria (ANES) 12-08 Drug form: l 00:44: INJ, ONCE, Stop date: 12/08/19 19:44:00 CDT Morphine 2019-0 No Notes: Memoria 6-13 (Same l 00:44: as:MORPhin e Sulfate) Hydromorpho 2019-0 No Notes: Jacinto margarita ne 6- Same as: l 00:44: Dilaudid Flumazenil 2019-0 No Notes: Memor ia 6-13 (Same as: l 00:44: Romazicon) Naloxone 2019-0 No Notes: Memoria 6-13 Same as l 00:44: Narcan Ephedrine 2019-0 No Notes: Memori a 6-13 final l 00:44: concentrat ion 5 mg/mL Diphenhydra 2019-0 No Notes: Jacinto margarita mine 6-13 (Same as: l 00:44: Benadryl) Meperidine 2019-0 No Notes: Memor ia 6-13 (Same as: l 00:44: Demerol) "Use Precaution in Elderly, Seizure disorders, and Renal impairment " Ondansetron 2019-0 No Notes: Jacinto margarita 6-13 (Same as: l 00:44: Zofran) MEDICATION WASTE Product Size: 4 mg Product Wasted: ___ mg midazolam 2020-0 No Route: IV, Me moria (ANES) 6-13 Drug form: l 00:44: SOLN, [place] 00 ONCE, Stop date: 12/08/19 19:44:00 CDT fentaNYL 2020-0 No Route: IV, Mem oria (ANES) 6-13 Drug form: l 00:44: INJ, ONCE, Brian 00 Stop date: 12/08/19 19:44:00 CDT Morphine 2019-0 No Notes: Memoria 6-13 (Same l 00:44: as:MORPhin Brian 00 e Sulfate) Hydromorpho 2019-0 No Notes: Jacinto margarita ne 6-13 Same as: l 00:44: Dilaudid Flumazenil 2019-0 No Notes: Memor ia 6-13 (Same as: l 00:44: Romazicon) Naloxone 2019-0 No Notes: Memoria 6-13 Same as l 00:44: Narcan Ephedrine 2019-0 No Notes: Memori a 6-13 final l 00:44: concentrat ion 5 mg/mL Diphenhydra 2019-0 No Notes: Jacinto margarita mine 6-13 (Same as: l 00:44: Benadryl) Meperidine 2019-0 No Notes: Memor ia 6-13 (Same as: l 00:44: Demerol) "Use Precaution in Elderly, Seizure disorders, and Renal impairment " Ondansetron 0 No Notes: Jacinto margarita 6-13 (Same as: l 00:44: Zofran) MEDICATION WASTE Product Size: 4 mg Product Wasted: ___ mg midazolam 2020-0 No Route: IV, Me moria (ANES) 6-13 Drug form: l 00:44: SOLN, Brian 00 ONCE, Stop date: 12/08/19 19:44:00 CDT fentaNYL 2019-0 No Route: IV, Mem oria (ANES) 6-13 Drug form: l 00:44: INJ, ONCE, [place] 00 Stop date: 12/08/19 19:44:00 CDT Morphine 2019-0 No Notes: Memoria 6-13 (Same l 00:44: as:MORPhin [place] 00 e Sulfate) Hydromorpho 2019-0 No Notes: Jacinto margarita ne 6-13 Same as: l 00:44: Dilaudid Flumazenil 2019-0 No Notes: Memor ia 6-13 (Same as: l 00:44: Romazicon) Naloxone 2019-0 No Notes: Memoria 6-13 Same as l 00:44: Narcan Ephedrine 0 No Notes: Memori a 6-13 final l 00:44: concentrat ion 5 mg/mL Diphenhydra 2019-0 No Notes: Jacinto margarita mine 6-13 (Same as: l 00:44: Benadryl) Meperidine 0 No Notes: Memor ia 6-13 (Same as: l 00:44: Demerol) "Use Precaution in Elderly, Seizure disorders, and Renal impairment " Ondansetron No Notes: Jacinto margarita 6-13 (Same as: l 00:44: Zofran) MEDICATION WASTE Product Size: 4 mg Product Wasted: ___ mg midazolam 2019-0 No Route: IV, Me moria (ANES) 6- Drug form: l 00:44: SOLN, [place] 00 ONCE, Stop date: 12/08/19 19:44:00 CDT fentaNYL 2019-0 No Route: IV, Mem oria (ANES) 6- Drug form: l 00:44: INJ, ONCE, Brian 00 Stop date: 12/08/19 19:44:00 CDT Morphine 2019-0 No Notes: Memoria 6-13 (Same l 00:44: as:MORPhin [place] 00 e Sulfate) Hydromorpho 2019-0 No Notes: Jacinto margarita ne 6-13 Same as: l 00:44: Dilaudid Flumazenil 2019-0 No Notes: Memor ia 6-13 (Same as: l 00:44: Romazicon) Naloxone 2019-0 No Notes: Memoria 6-13 Same as l 00:44: Narcan Ephedrine 2019-0 No Notes: Memori a 6-13 final l 00:44: concentrat ion 5 mg/mL Diphenhydra 2019-0 No Notes: Jacinto margarita mine 6-13 (Same as: l 00:44: Benadryl) Meperidine 2019-0 No Notes: Memor ia 6-13 (Same as: l 00:44: Demerol) "Use Precaution in Elderly, Seizure disorders, and Renal impairment " Ondansetron 2019-0 No Notes: Jacinto margarita 6-13 (Same as: l 00:44: Zofran) MEDICATION WASTE Product Size: 4 mg Product Wasted: ___ mg midazolam 2020-0 No Route: IV, Me moria (ANES) 6- Drug form: l 00:44: SOLN, [place] 00 ONCE, Stop date: 12/08/19 19:44:00 CDT fentaNYL 2020-0 No Route: IV, Mem oria (ANES) 6- Drug form: l 00:44: INJ, ONCE, Stop date: 12/08/19 19:44:00 CDT Morphine 2020-0 No Notes: Memoria 6-13 (Same l 00:44: as:MORPhin e Sulfate) Hydromorpho 2020-0 No Notes: Jacinto margarita ne 6-13 Same as: l 00:44: Dilaudid Flumazenil 2019-0 No Notes: Memor ia 6-13 (Same as: l 00:44: Romazicon) Naloxone 2019-0 No Notes: Memoria 6-13 Same as l 00:44: Narcan Ephedrine 2019-0 No Notes: Memori a 6-13 final l 00:44: concentrat ion 5 mg/mL Diphenhydra 2020-0 No Notes: Jacinto margarita mine 6-13 (Same as: l 00:44: Benadryl) Meperidine 2020-0 No Notes: Memor ia 6-13 (Same as: l 00:44: Demerol) "Use Precaution in Elderly, Seizure disorders, and Renal impairment " Ondansetron 2020-0 No Notes: Jacinto margarita 6-13 (Same as: l 00:44: Zofran) MEDICATION WASTE Product Size: 4 mg Product Wasted: ___ mg midazolam 2020-0 No Route: IV, Me moria (ANES) 6-13 Drug form: l 00:44: SOLN, [place] 00 ONCE, Stop date: 12/08/19 19:44:00 CDT fentaNYL 2019-0 No Route: IV, Mem oria (ANES) 6-13 Drug form: l 00:44: INJ, ONCE, [place] 00 Stop date: 12/08/19 19:44:00 CDT Morphine 2019-0 No Notes: Memoria 6-13 (Same l 00:44: as:MORPhin e Sulfate) Hydromorpho 0 No Notes: Jacinto margarita ne 6-13 Same as: l 00:44: Dilaudid Flumazenil No Notes: Memor ia 6-13 (Same as: l 00:44: Romazicon) Naloxone 0 No Notes: Memoria 6-13 Same as l 00:44: Narcan Ephedrine No Notes: Memori a 6-13 final l 00:44: concentrat ion 5 mg/mL Diphenhydra No Notes: Jacinto margarita mine 6-13 (Same as: l 00:44: Benadryl) Meperidine No Notes: Memor ia 6-13 (Same as: l 00:44: Demerol) "Use Precaution in Elderly, Seizure disorders, and Renal impairment " Ondansetron No Notes: Jacinto margarita 6-13 (Same as: l 00:44: Zofran) MEDICATION WASTE Product Size: 4 mg Product Wasted: ___ mg midazolam No Route: IV, Me moria (ANES) 6-13 Drug form: l 00:44: SOLN, Brian 00 ONCE, Stop date: 12/08/19 19:44:00 CDT fentaNYL 2019-0 No Route: IV, Mem oria (ANES) 6-13 Drug form: l 00:44: INJ, ONCE, [place] 00 Stop date: 12/08/19 19:44:00 CDT Morphine 2019-0 No Notes: Memoria 6-13 (Same l 00:44: as:MORPhin e Sulfate) Hydromorpho 2019-0 No Notes: Jacinto margarita ne 6-13 Same as: l 00:44: Dilaudid [place] 00 Flumazenil 2019-0 No Notes: Memor ia 6-13 (Same as: l 00:44: Romazicon) Naloxone 2019-0 No Notes: Memoria 6-13 Same as l 00:44: Narcan Ephedrine No Notes: Memori a 6-13 final l 00:44: concentrat Brian 00 ion 5 mg/mL Diphenhydra 0 No Notes: Jacinto margarita mine 6-13 (Same as: l 00:44: Benadryl) Meperidine No Notes: Memor ia 6-13 (Same as: l 00:44: Demerol) "Use Precaution in Elderly, Seizure disorders, and Renal impairment " Ondansetron No Notes: Jacinto margarita 6-13 (Same as: l 00:44: Zofran) MEDICATION WASTE Product Size: 4 mg Product Wasted: ___ mg midazolam 2019- No Route: IV, Me moria (ANES) 6- Drug form: l 00:44: SOLN, Brian 00 ONCE, Stop date: 12/08/19 19:44:00 CDT fentaNYL 2019-0 No Route: IV, Mem oria (ANES) 6- Drug form: l 00:44: INJ, ONCE, [place] 00 Stop date: 12/08/19 19:44:00 CDT Morphine 2019-0 No Notes: Memoria 6-13 (Same l 00:44: as:MORPhin [place] 00 e Sulfate) Hydromorpho 0 No Notes: Jacinto margarita ne 6-13 Same as: l 00:44: Dilaudid Flumazenil 2019-0 No Notes: Memor ia 6-13 (Same as: l 00:44: Romazicon) Naloxone 2019-0 No Notes: Memoria 6-13 Same as l 00:44: Narcan Ephedrine 2019-0 No Notes: Memori a 6-13 final l 00:44: concentrat ion 5 mg/mL Diphenhydra No Notes: Jacinto margarita mine 6-13 (Same as: l 00:44: Benadryl) Meperidine No Notes: Memor ia 6-13 (Same as: l 00:44: Demerol) "Use Precaution in Elderly, Seizure disorders, and Renal impairment " Ondansetron No Notes: Jacinto margarita 6-13 (Same as: l 00:44: Zofran) MEDICATION WASTE Product Size: 4 mg Product Wasted: ___ mg morphine No Route: IV, Mem oria Sulfate 6-13 Drug form: l (ANES) 10 00:41: INJ, Start He rmann mg 00 date: 12/08/19 19:41:00 CDT, Stop date: 12/08/19 20:41:00 CDT morphine No Route: IV, Mem oria Sulfate 6-13 Drug form: l (ANES) 10 00:41: INJ, Start He rmann mg 00 date: 12/08/19 19:41:00 CDT, Stop date: 12/08/19 20:41:00 CDT morphine No Route: IV, Mem oria Sulfate 6-13 Drug form: l (ANES) 10 00:41: INJ, Start He r[place] mg 00 date: 12/08/19 19:41:00 CDT, Stop date: 12/08/19 20:41:00 CDT morphine No Route: IV, Mem oria Sulfate 6-13 Drug form: l (ANES) 10 00:41: INJ, Start He r[place] mg 00 date: 12/08/19 19:41:00 CDT, Stop date: 12/08/19 20:41:00 CDT morphine No Route: IV, Mem oria Sulfate 6-13 Drug form: l (ANES) 10 00:41: INJ, Start He r[place] mg 00 date: 12/08/19 19:41:00 CDT, Stop date: 12/08/19 20:41:00 CDT morphine No Route: IV, Mem oria Sulfate 6-13 Drug form: l (ANES) 10 00:41: INJ, Start He r[place] mg 00 date: 12/08/19 19:41:00 CDT, Stop date: 12/08/19 20:41:00 CDT morphine 2020-0 No Route: IV, Mem oria Sulfate 6-13 Drug form: l (ANES) 10 00:41: INJ, Start He rmann mg 00 date: 12/08/19 19:41:00 CDT, Stop date: 12/08/19 20:41:00 CDT morphine 2020-0 No Route: IV, Mem oria Sulfate 6-13 Drug form: l (ANES) 10 00:41: INJ, Start He r[place] mg 00 date: 12/08/19 19:41:00 CDT, Stop date: 12/08/19 20:41:00 CDT morphine 2020-0 No Route: IV, Mem oria Sulfate 6-13 Drug form: l (ANES) 10 00:41: INJ, Start He r[place] mg 00 date: 12/08/19 19:41:00 CDT, Stop date: 12/08/19 20:41:00 CDT morphine 2019-0 No Route: IV, Mem oria Sulfate 6-13 Drug form: l (ANES) 10 00:41: INJ, Start He r[place] mg 00 date: 12/08/19 19:41:00 CDT, Stop date: 12/08/19 20:41:00 CDT morphine 2020-0 No Route: IV, Mem oria Sulfate 6-13 Drug form: l (ANES) 10 00:41: INJ, Start He r[place] mg 00 date: 12/08/19 19:41:00 CDT, Stop date: 12/08/19 20:41:00 CDT morphine 2020-0 No Route: IV, Mem oria Sulfate 6-13 Drug form: l (ANES) 10 00:41: INJ, Start He r[place] mg 00 date: 12/08/19 19:41:00 CDT, Stop date: 12/08/19 20:41:00 CDT phenylephri 2020-0 No Route: IV, Memoria ne (ANES) 6-13 Drug form: l 100 00:15: INJ, Start [place] microgram 00 date: 12/08/19 19:15:00 CDT, Stop date: 12/08/19 20:15:00 CDT ceFAZolin 2020-0 No Route: IV, Me moria (ANES) 1000 6-13 Drug form: l mg 00:15: INJ, Start Brian date: 12/08/19 19:15:00 CDT, Stop date: 12/08/19 20:15:00 CDT phenylephri 2020-0 No Route: IV, Memoria ne (ANES) 6-13 Drug form: l 100 00:15: INJ, Start [place] microgram date: 12/08/19 19:15:00 CDT, Stop date: 12/08/19 20:15:00 CDT ceFAZolin 2020-0 No Route: IV, Me moria (ANES) 1000 6-13 Drug form: l mg 00:15: INJ, Start Brian date: 12/08/19 19:15:00 CDT, Stop date: 12/08/19 20:15:00 CDT phenylephri 2020-0 No Route: IV, Memoria ne (ANES) 6-13 Drug form: l 100 00:15: INJ, Start Brian microgram date: 12/08/19 19:15:00 CDT, Stop date: 12/08/19 20:15:00 CDT ceFAZolin 2020-0 No Route: IV, Me moria (ANES) 1000 6-13 Drug form: l mg 00:15: INJ, Start Brian date: 12/08/19 19:15:00 CDT, Stop date: 12/08/19 20:15:00 CDT phenylephri 2020-0 No Route: IV, Memoria ne (ANES) 6-13 Drug form: l 100 00:15: INJ, Start Brian microgram date: 12/08/19 19:15:00 CDT, Stop date: 12/08/19 20:15:00 CDT ceFAZolin 2020-0 No Route: IV, Me moria (ANES) 1000 6-13 Drug form: l mg 00:15: INJ, Start Brian date: 12/08/19 19:15:00 CDT, Stop date: 12/08/19 20:15:00 CDT phenylephri 2020-0 No Route: IV, Memoria ne (ANES) 6-13 Drug form: l 100 00:15: INJ, Start [place] microgram date: 12/08/19 19:15:00 CDT, Stop date: 12/08/19 20:15:00 CDT ceFAZolin 2020-0 No Route: IV, Me moria (ANES) 1000 6- Drug form: l mg 00:15: INJ, Start Brian 00 date: 12/08/19 19:15:00 CDT, Stop date: 12/08/19 20:15:00 CDT phenylephri 2020-0 No Route: IV, Memoria ne (ANES) 6- Drug form: l 100 00:15: INJ, Start Brian microgram date: 12/08/19 19:15:00 CDT, Stop date: 12/08/19 20:15:00 CDT ceFAZolin 2020-0 No Route: IV, Me moria (ANES) 1000 12-08 Drug form: l mg 00:15: INJ, Start date: 12/08/19 19:15:00 CDT, Stop date: 12/08/19 20:15:00 CDT phenylephri 2020-0 No Route: IV, Memoria ne (ANES) 6- Drug form: l 100 00:15: INJ, Start microgram date: 12/08/19 19:15:00 CDT, Stop date: 12/08/19 20:15:00 CDT ceFAZolin 2020-0 No Route: IV, Me moria (ANES) 1000 12-08 Drug form: l mg 00:15: INJ, Start [place] 00 date: 12/08/19 19:15:00 CDT, Stop date: 12/08/19 20:15:00 CDT phenylephri 2020-0 No Route: IV, Memoria ne (ANES) 6- Drug form: l 100 00:15: INJ, Start microgram date: 12/08/19 19:15:00 CDT, Stop date: 12/08/19 20:15:00 CDT ceFAZolin 2020-0 No Route: IV, Me moria (ANES) 1000 6-13 Drug form: l mg 00:15: INJ, Start Brian 00 date: 12/08/19 19:15:00 CDT, Stop date: 12/08/19 20:15:00 CDT phenylephri 2020-0 No Route: IV, Memoria ne (ANES) 6- Drug form: l 100 00:15: INJ, Start [place] microgram date: 12/08/19 19:15:00 CDT, Stop date: 12/08/19 20:15:00 CDT ceFAZolin 2020-0 No Route: IV, Me moria (ANES) 1000 6- Drug form: l mg 00:15: INJ, Start [place] date: 12/08/19 19:15:00 CDT, Stop date: 12/08/19 20:15:00 CDT phenylephri 2020-0 No Route: IV, Memoria ne (ANES) 6- Drug form: l 100 00:15: INJ, Start [place] microgram date: 12/08/19 19:15:00 CDT, Stop date: 12/08/19 20:15:00 CDT ceFAZolin 2020-0 No Route: IV, Me moria (ANES) 1000 6- Drug form: l mg 00:15: INJ, Start Brian date: 12/08/19 19:15:00 CDT, Stop date: 12/08/19 20:15:00 CDT phenylephri 2020-0 No Route: IV, Memoria ne (ANES) 6- Drug form: l 100 00:15: INJ, Start Brian microgram date: 12/08/19 19:15:00 CDT, Stop date: 12/08/19 20:15:00 CDT ceFAZolin 2020-0 No Route: IV, Me moria (ANES) 1000 6-13 Drug form: l mg 00:15: INJ, Start Brian date: 12/08/19 19:15:00 CDT, Stop date: 12/08/19 20:15:00 CDT phenylephri 2020-0 No Route: IV, Memoria ne (ANES) 6-13 Drug form: l 100 00:15: INJ, Start Brian microgram date: 12/08/19 19:15:00 CDT, Stop date: 12/08/19 20:15:00 CDT ceFAZolin 2020-0 No Route: IV, Me moria (ANES) 1000 6-13 Drug form: l mg 00:15: INJ, Start date: 12/08/19 19:15:00 CDT, Stop date: 12/08/19 20:15:00 CDT Tramadol 2019-0 No Notes: Not Mem oria 6-13 to exceed l 00:00: 400mg/day. (Same As: Ultram) Hydromorpho 2019-0 No Notes: Jacinto margarita ne 6-13 Same as: l 00:00: Dilaudid Naloxone 2019-0 No Notes: Memoria 6-13 Same as l 00:00: Narcan Bisacodyl 0 No Notes: Memori a 6-13 (Same As: l 00:00: Dulcolax, Brian 00 Bisco-Lax) Ondansetron 2019-0 No Notes: Jacinto margarita 6-13 (Same as: l 00:00: Zofran) MEDICATION WASTE Product Size: 4 mg Product Wasted: ___ mg Melatonin 2020-0 No Notes: Memori a 6-13 (Same as: l 00:00: Melatonin) Tramadol 0 No Notes: Not Mem oria 6-13 to exceed l 00:00: 400mg/day. (Same As: Ultram) Hydromorpho 2019-0 No Notes: Jacinto margarita ne 6-13 Same as: l 00:00: Dilaudid Naloxone 2019-0 No Notes: Memoria 6-13 Same as l 00:00: Narcan Bisacodyl 2019-0 No Notes: Memori a 6-13 (Same As: l 00:00: Dulcolax, [place] 00 Bisco-Lax) Ondansetron 2020-0 No Notes: Jacinto margarita 6-13 (Same as: l 00:00: Zofran) MEDICATION WASTE Product Size: 4 mg Product Wasted: ___ mg Melatonin 2020-0 No Notes: Memori a 6-13 (Same as: l 00:00: Melatonin) Brian 00 Tramadol 2019-0 No Notes: Not Mem oria 6-13 to exceed l 00:00: 400mg/day. (Same As: Ultram) Hydromorpho 2020-0 No Notes: Jacinto margarita ne 6-13 Same as: l 00:00: Dilaudid Brian Naloxone 2019-0 No Notes: Memoria 6-13 Same as l 00:00: Narcan Brian Bisacodyl 2019-0 No Notes: Memori a 6-13 (Same As: l 00:00: Dulcolax, Brian 00 Bisco-Lax) Ondansetron 2019-0 No Notes: Jacinto margarita 6-13 (Same as: l 00:00: Zofran) Brian 00 MEDICATION WASTE Product Size: 4 mg Product Wasted: ___ mg Melatonin 2020-0 No Notes: Memori a 6-13 (Same as: l 00:00: Melatonin) [place] 00 Tramadol 0 No Notes: Not Mem oria 6-13 to exceed l 00:00: 400mg/day. Brian 00 (Same As: Ultram) Hydromorpho 2019-0 No Notes: Jacinto margarita ne 6-13 Same as: l 00:00: Dilaudid Brian Naloxone 2019-0 No Notes: Memoria 6-13 Same as l 00:00: Narcan Brian Bisacodyl 2019-0 No Notes: Memori a 6-13 (Same As: l 00:00: Dulcolax, [place] 00 Bisco-Lax) Ondansetron 0 No Notes: Jacinto margarita 6-13 (Same as: l 00:00: Zofran) Brian 00 MEDICATION WASTE Product Size: 4 mg Product Wasted: ___ mg Melatonin 2019-0 No Notes: Memori a 6-13 (Same as: l 00:00: Melatonin) [place] Tramadol 2019-0 No Notes: Not Mem oria 6-13 to exceed l 00:00: 400mg/day. [place] 00 (Same As: Ultram) Hydromorpho 2019-0 No Notes: Jacinto margarita ne 6-13 Same as: l 00:00: Dilaudid Brian Naloxone 2019-0 No Notes: Memoria 6-13 Same as l 00:00: Narcan [place] Bisacodyl 2019-0 No Notes: Memori a 6-13 (Same As: l 00:00: Dulcolax, Brian 00 Bisco-Lax) Ondansetron 2019-0 No Notes: Jacinto margarita 6-13 (Same as: l 00:00: Zofran) Brian 00 MEDICATION WASTE Product Size: 4 mg Product Wasted: ___ mg Melatonin 2020-0 No Notes: Memori a 6-13 (Same as: l 00:00: Melatonin) Brian 00 Tramadol 0 No Notes: Not Mem oria 6-13 to exceed l 00:00: 400mg/day. [place] 00 (Same As: Ultram) Hydromorpho 2019-0 No Notes: Jacinto margarita ne 6-13 Same as: l 00:00: Dilaudid [place] Naloxone 2019-0 No Notes: Memoria 6-13 Same as l 00:00: Narcan Bisacodyl No Notes: Memori a 6-13 (Same As: l 00:00: Dulcolax, Brian 00 Bisco-Lax) Ondansetron 0 No Notes: Jacinto margarita 6-13 (Same as: l 00:00: Zofran) Brian 00 MEDICATION WASTE Product Size: 4 mg Product Wasted: ___ mg Melatonin 2019-0 No Notes: Memori a 6-13 (Same as: l 00:00: Melatonin) Brian 00 Tramadol 0 No Notes: Not Mem oria 6-13 to exceed l 00:00: 400mg/day. Brian 00 (Same As: Ultram) Hydromorpho 2019-0 No Notes: Jacinto margarita ne 6-13 Same as: l 00:00: Dilaudid [place] Naloxone 2019-0 No Notes: Memoria 6-13 Same as l 00:00: Narcan Bisacodyl 2019-0 No Notes: Memori a 6-13 (Same As: l 00:00: Dulcolax, Brian 00 Bisco-Lax) Ondansetron 2019-0 No Notes: Jacinto margarita 6-13 (Same as: l 00:00: Zofran) Brian 00 MEDICATION WASTE Product Size: 4 mg Product Wasted: ___ mg Melatonin 2020-0 No Notes: Memori a 6-13 (Same as: l 00:00: Melatonin) [place] 00 Tramadol 2020-0 No Notes: Not Mem oria 6-13 to exceed l 00:00: 400mg/day. Brian 00 (Same As: Ultram) Hydromorpho 2020-0 No Notes: Jacinto margarita ne 6-13 Same as: l 00:00: Dilaudid Brian 00 Naloxone 2020-0 No Notes: Memoria 6-13 Same as l 00:00: Narcan Bisacodyl 2020-0 No Notes: Memori a 6-13 (Same As: l 00:00: Dulcolax, Brian 00 Bisco-Lax) Ondansetron 2020-0 No Notes: Jacinto margarita 6-13 (Same as: l 00:00: Zofran) [place] 00 MEDICATION WASTE Product Size: 4 mg Product Wasted: ___ mg Melatonin 2020-0 No Notes: Memori a 6-13 (Same as: l 00:00: Melatonin) Brian 00 Tramadol 2020-0 No Notes: Not Mem oria 6-13 to exceed l 00:00: 400mg/day. Brian 00 (Same As: Ultram) Hydromorpho 2020-0 No Notes: Jacinto margarita ne 6-13 Same as: l 00:00: Dilaudid [place] 00 Naloxone 2020-0 No Notes: Memoria 6-13 Same as l 00:00: Narcan Bisacodyl 2020-0 No Notes: Memori a 6-13 (Same As: l 00:00: Dulcolax, Brian 00 Bisco-Lax) Ondansetron 2020-0 No Notes: Jacinto margarita 6-13 (Same as: l 00:00: Zofran) Brian 00 MEDICATION WASTE Product Size: 4 mg Product Wasted: ___ mg Melatonin 2020-0 No Notes: Memori a 6-13 (Same as: l 00:00: Melatonin) Brian 00 Tramadol 2020-0 No Notes: Not Mem oria 6-13 to exceed l 00:00: 400mg/day. [place] 00 (Same As: Ultram) Hydromorpho 2020-0 No Notes: Jacinto margarita ne 6-13 Same as: l 00:00: Dilaudid Brian Naloxone 2020-0 No Notes: Memoria 6-13 Same as l 00:00: Narcan [place] Bisacodyl 2019-0 No Notes: Memori a 6-13 (Same As: l 00:00: Dulcolax, [place] 00 Bisco-Lax) Ondansetron 2019-0 No Notes: Jacinto margarita 6-13 (Same as: l 00:00: Zofran) Brian 00 MEDICATION WASTE Product Size: 4 mg Product Wasted: ___ mg Melatonin 2020-0 No Notes: Memori a 6-13 (Same as: l 00:00: Melatonin) [place] Tramadol 2019-0 No Notes: Not Mem oria 6-13 to exceed l 00:00: 400mg/day. [place] 00 (Same As: Ultram) Hydromorpho 2019-0 No Notes: Jacinto margarita ne 6-13 Same as: l 00:00: Dilaudid Brian Naloxone 2019-0 No Notes: Memoria 6-13 Same as l 00:00: Narcan Brian Bisacodyl 2019-0 No Notes: Memori a 6-13 (Same As: l 00:00: Dulcolax, Brian 00 Bisco-Lax) Ondansetron 2019-0 No Notes: Jacinto margarita 6-13 (Same as: l 00:00: Zofran) Brian 00 MEDICATION WASTE Product Size: 4 mg Product Wasted: ___ mg Melatonin 2020-0 No Notes: Memori a 6-13 (Same as: l 00:00: Melatonin) Brian 00 Tramadol 2019-0 No Notes: Not Mem oria 6-13 to exceed l 00:00: 400mg/day. Brian 00 (Same As: Ultram) Hydromorpho 2020-0 No Notes: Jacinto margarita ne 6-13 Same as: l 00:00: Dilaudid Brian Naloxone 2020-0 No Notes: Memoria 6-13 Same as l 00:00: Narcan Brian Bisacodyl 2019-0 No Notes: Memori a 6-13 (Same As: l 00:00: Dulcolax, [place] 00 Bisco-Lax) Ondansetron 2020-0 No Notes: Jacinto margarita 6-13 (Same as: l 00:00: Zofran) MEDICATION WASTE Product Size: 4 mg Product Wasted: ___ mg Melatonin 2020-0 No Notes: Memori a 6-13 (Same as: l 00:00: Melatonin) Lactated 2020-0 No Route: IV, Mem oria Ringers 6-12 Total l Injection 23:50: Volume: Marika nn IV (ANES) 00 1,000, 1000 mL Start date: 12/08/19 18:50:00 CDT, Stop date: 12/08/19 19:50:00 CDT Lactated 2020-0 No Route: IV, Mem oria Ringers 6-12 Total l Injection 23:50: Volume: Marika nn IV (ANES) 00 1,000, 1000 mL Start date: 12/08/19 18:50:00 CDT, Stop date: 12/08/19 19:50:00 CDT Lactated 2020-0 No Route: IV, Mem oria Ringers 6-12 Total l Injection 23:50: Volume: Marika nn IV (ANES) 00 1,000, 1000 mL Start date: 12/08/19 18:50:00 CDT, Stop date: 12/08/19 19:50:00 CDT Lactated 2020-0 No Route: IV, Mem oria Ringers 6-12 Total l Injection 23:50: Volume: Marika nn IV (ANES) 00 1,000, 1000 mL Start date: 12/08/19 18:50:00 CDT, Stop date: 12/08/19 19:50:00 CDT Lactated 2020-0 No Route: IV, Mem oria Ringers 6-12 Total l Injection 23:50: Volume: Marika nn IV (ANES) 00 1,000, 1000 mL Start date: 12/08/19 18:50:00 CDT, Stop date: 12/08/19 19:50:00 CDT Lactated 2020-0 No Route: IV, Mem oria Ringers 6-12 Total l Injection 23:50: Volume: Marika nn IV (ANES) 00 1,000, 1000 mL Start date: 12/08/19 18:50:00 CDT, Stop date: 12/08/19 19:50:00 CDT Lactated 2020-0 No Route: IV, Mem oria Ringers 6-12 Total l Injection 23:50: Volume: Marika nn IV (ANES) 00 1,000, 1000 mL Start date: 12/08/19 18:50:00 CDT, Stop date: 12/08/19 19:50:00 CDT Lactated 2020-0 No Route: IV, Mem oria Ringers 6-12 Total l Injection 23:50: Volume: Marika nn IV (ANES) 00 1,000, 1000 mL Start date: 12/08/19 18:50:00 CDT, Stop date: 12/08/19 19:50:00 CDT Lactated 2020-0 No Route: IV, Mem oria Ringers 6-12 Total l Injection 23:50: Volume: Marika nn IV (ANES) 00 1,000, 1000 mL Start date: 12/08/19 18:50:00 CDT, Stop date: 12/08/19 19:50:00 CDT Lactated 2020-0 No Route: IV, Mem oria Ringers 6-12 Total l Injection 23:50: Volume: Marika nn IV (ANES) 00 1,000, 1000 mL Start date: 12/08/19 18:50:00 CDT, Stop date: 12/08/19 19:50:00 CDT Lactated 2020-0 No Route: IV, Mem oria Ringers 6-12 Total l Injection 23:50: Volume: Marika nn IV (ANES) 00 1,000, 1000 mL Start date: 12/08/19 18:50:00 CDT, Stop date: 12/08/19 19:50:00 CDT Lactated 2020-0 No Route: IV, Mem oria Ringers 6-12 Total l Injection 23:50: Volume: Marika nn IV (ANES) 00 1,000, 1000 mL Start date: 12/08/19 18:50:00 CDT, Stop date: 12/08/19 19:50:00 CDT Dilaudid 2020-0 No Notes: Memoria 12-07 Same as: l 21:18: Dilaudid Brian 00 Acetaminoph 2019-0 No Notes: Do M emoria en 325 MG / 12-07 not exceed l Oxycodone 21:18: 4gm/day of He r[place] Hydrochlori 00 acetaminop de 5 MG hen. (Same Oral Tablet as: [Percocet Percocet-5 5/325] /325) Dilaudid No Notes: Memoria 6-12 Same as: l 21:18: Dilaudid Brian Acetaminoph No Notes: Do M emoria en 325 MG / 6-12 not exceed l Oxycodone 21:18: 4gm/day of [place] r[place] Hydrochlori 00 acetaminop de 5 MG hen. (Same Oral Tablet as: [Percocet Percocet-5 5/325] /325) Dilaudid No Notes: Memoria 6-12 Same as: l 21:18: Dilaudid Brian Acetaminoph No Notes: Do M emoria en 325 MG / 6-12 not exceed l Oxycodone 21:18: 4gm/day of [place] Hydrochlori 00 acetaminop de 5 MG hen. (Same Oral Tablet as: [Percocet Percocet-5 5/325] /325) Dilaudid No Notes: Memoria 6-12 Same as: l 21:18: Dilaudid Brian Acetaminoph No Notes: Do M emoria en 325 MG / 6-12 not exceed l Oxycodone 21:18: 4gm/day of [place] Hydrochlori 00 acetaminop de 5 MG hen. (Same Oral Tablet as: [Percocet Percocet-5 5/325] /325) Dilaudid No Notes: Memoria 6-12 Same as: l 21:18: Dilaudid [place] Acetaminoph No Notes: Do M emoria en 325 MG / 6-12 not exceed l Oxycodone 21:18: 4gm/day of [place] r[place] Hydrochlori 00 acetaminop de 5 MG hen. (Same Oral Tablet as: [Percocet Percocet-5 5/325] /325) Dilaudid No Notes: Memoria 6-12 Same as: l 21:18: Dilaudid [place] Acetaminoph No Notes: Do M emoria en 325 MG / 6-12 not exceed l Oxycodone 21:18: 4gm/day of He r[place] Hydrochlori 00 acetaminop de 5 MG hen. (Same Oral Tablet as: [Percocet Percocet-5 5/325] /325) Dilaudid No Notes: Memoria 6-12 Same as: l 21:18: Dilaudid Brian Acetaminoph No Notes: Do M emoria en 325 MG / 6-12 not exceed l Oxycodone 21:18: 4gm/day of [place] Hydrochlori 00 acetaminop de 5 MG hen. (Same Oral Tablet as: [Percocet Percocet-5 5/325] /325) Dilaudid No Notes: Memoria 6-12 Same as: l 21:18: Dilaudid [place] Acetaminoph No Notes: Do M emoria en 325 MG / 6-12 not exceed l Oxycodone 21:18: 4gm/day of [place] Hydrochlori 00 acetaminop de 5 MG hen. (Same Oral Tablet as: [Percocet Percocet-5 5/325] /325) Dilaudid No Notes: Memoria 6-12 Same as: l 21:18: Dilaudid Brian Acetaminoph No Notes: Do M emoria en 325 MG / 6-12 not exceed l Oxycodone 21:18: 4gm/day of [place] Hydrochlori 00 acetaminop de 5 MG hen. (Same Oral Tablet as: [Percocet Percocet-5 5/325] /325) Dilaudid No Notes: Memoria 6-12 Same as: l 21:18: Dilaudid [place] Acetaminoph No Notes: Do M emoria en 325 MG / 6-12 not exceed l Oxycodone 21:18: 4gm/day of [place] Hydrochlori 00 acetaminop de 5 MG hen. (Same Oral Tablet as: [Percocet Percocet-5 5/325] /325) Dilaudid No Notes: Memoria 6-12 Same as: l 21:18: Dilaudid [place] Acetaminoph No Notes: Do M emoria en 325 MG / 6-12 not exceed l Oxycodone 21:18: 4gm/day of [place] Hydrochlori 00 acetaminop de 5 MG hen. (Same Oral Tablet as: [Percocet Percocet-5 5/325] /325) Dilaudid 2019-0 No Notes: Memoria 6-12 Same as: l 21:18: Dilaudid Acetaminoph 2019-0 No Notes: Do M emoria en 325 MG / 6-12 not exceed l Oxycodone 21:18: 4gm/day of [place] Hydrochlori 00 acetaminop de 5 MG hen. (Same Oral Tablet as: [Percocet Percocet-5 5/325] /325) Cefazolin 2019-0 No Notes: Memori a 6-12 (Same As: l 21:00: Ancef, Brian 00 Kefzol) MEDICATION WASTE Product Size: 1000 mg Product Wasted: ___ mg Clindamycin 2020-0 No Notes: Jacinto margarita 6-12 (Same As: l 21:00: Cleocin) Cefazolin 2019-0 No Notes: Memori a 6-12 (Same As: l 21:00: Ancef, [place] 00 Kefzol) MEDICATION WASTE Product Size: 1000 mg Product Wasted: ___ mg Clindamycin 2020-0 No Notes: Jacinto margarita 6-12 (Same As: l 21:00: Cleocin) Cefazolin 2019-0 No Notes: Memori a 6-12 (Same As: l 21:00: Ancef, [place] 00 Kefzol) MEDICATION WASTE Product Size: 1000 mg Product Wasted: ___ mg Clindamycin 2020-0 No Notes: Jacinto margarita 6-12 (Same As: l 21:00: Cleocin) [place] 00 Cefazolin 2020-0 No Notes: Memori a 6-12 (Same As: l 21:00: Ancef, [place] 00 Kefzol) MEDICATION WASTE Product Size: 1000 mg Product Wasted: ___ mg Clindamycin 2020-0 No Notes: Jacinto margarita 6-12 (Same As: l 21:00: Cleocin) Cefazolin 2020-0 No Notes: Memori a 6-12 (Same As: l 21:00: Ancef, [place] 00 Kefzol) MEDICATION WASTE Product Size: 1000 mg Product Wasted: ___ mg Clindamycin 2020-0 No Notes: Jacinto margarita 6-12 (Same As: l 21:00: Cleocin) [place] Cefazolin 2020-0 No Notes: Memori a 6-12 (Same As: l 21:00: Ancef, [place] 00 Kefzol) MEDICATION WASTE Product Size: 1000 mg Product Wasted: ___ mg Clindamycin 2020-0 No Notes: Jacinto margarita 6-12 (Same As: l 21:00: Cleocin) Brian Cefazolin 2020-0 No Notes: Memori a 6-12 (Same As: l 21:00: Ancef, Brian 00 Kefzol) MEDICATION WASTE Product Size: 1000 mg Product Wasted: ___ mg Clindamycin 2020-0 No Notes: Jacinto margarita 6-12 (Same As: l 21:00: Cleocin) Brian Cefazolin 2020-0 No Notes: Memori a 6-12 (Same As: l 21:00: Ancef, [place] 00 Kefzol) MEDICATION WASTE Product Size: 1000 mg Product Wasted: ___ mg Clindamycin 2020-0 No Notes: Jacinto margarita 6-12 (Same As: l 21:00: Cleocin) [place] Cefazolin 2020-0 No Notes: Memori a 6-12 (Same As: l 21:00: Ancef, [place] 00 Kefzol) MEDICATION WASTE Product Size: 1000 mg Product Wasted: ___ mg Clindamycin 2020-0 No Notes: Jacinto margarita 6-12 (Same As: l 21:00: Cleocin) Brian 00 Cefazolin 2020-0 No Notes: Memori a 6-12 (Same As: l 21:00: Ancef, [place] 00 Kefzol) MEDICATION WASTE Product Size: 1000 mg Product Wasted: ___ mg Clindamycin 2020-0 No Notes: Jacinto margarita 6-12 (Same As: l 21:00: Cleocin) [place] 00 Cefazolin 2020-0 No Notes: Memori a 6-12 (Same As: l 21:00: Ancef, Brian 00 Kefzol) MEDICATION WASTE Product Size: 1000 mg Product Wasted: ___ mg Clindamycin 2020-0 No Notes: Jacinto margarita 6-12 (Same As: l 21:00: Cleocin) [place] Cefazolin 2020-0 No Notes: Memori a 6-12 (Same As: l 21:00: Ancef, [place] 00 Kefzol) MEDICATION WASTE Product Size: 1000 mg Product Wasted: ___ mg Clindamycin 2020-0 No Notes: Jacinto margarita 6-12 (Same As: l 21:00: Cleocin) Brian Insulin 2019-0 No Notes: Memoria Lispro 6-12 (Same as: l 16:30: Humalog) Brian 00 Roll in palms of hands gently; Do not shake vigorously . WASTE: F/P - Black; E - Municipal Trash Bin Stable for 28 days at room temperatur e. Expires in days from ____Date Insulin 2020-0 No Notes: Memoria Lispro 6-12 (Same as: l 16:30: Humalog) [place] 00 Roll in palms of hands gently; Do not shake vigorously . WASTE: F/P - Black; E - Municipal Trash Bin Stable for 28 days at room temperatur e. Expires in days from ____Date Insulin 2020-0 No Notes: Memoria Lispro 6-12 (Same as: l 16:30: Humalog) Brian 00 Roll in palms of hands gently; Do not shake vigorously . WASTE: F/P - Black; E - Municipal Trash Bin Stable for 28 days at room temperatur e. Expires in days from ____Date Insulin 2020-0 No Notes: Memoria Lispro 6-12 (Same as: l 16:30: Humalog) [place] 00 Roll in palms of hands gently; Do not shake vigorously . WASTE: F/P - Black; E - Municipal Trash Bin Stable for 28 days at room temperatur e. Expires in days from ____Date Insulin 2020-0 No Notes: Memoria Lispro 6-12 (Same as: l 16:30: Humalog) Brian 00 Roll in palms of hands gently; Do not shake vigorously . WASTE: F/P - Black; E - Municipal Trash Bin Stable for 28 days at room temperatur e. Expires in days from ____Date Insulin 2020-0 No Notes: Memoria Lispro 6-12 (Same as: l 16:30: Humalog) [place] 00 Roll in palms of hands gently; Do not shake vigorously . WASTE: F/P - Black; E - Municipal Trash Bin Stable for 28 days at room temperatur e. Expires in days from ____Date Insulin 2020-0 No Notes: Memoria Lispro 6-12 (Same as: l 16:30: Humalog) [place] 00 Roll in palms of hands gently; Do not shake vigorously . WASTE: F/P - Black; E - Municipal Trash Bin Stable for 28 days at room temperatur e. Expires in days from ____Date Insulin 2020-0 No Notes: Memoria Lispro 6-12 (Same as: l 16:30: Humalog) Brian 00 Roll in palms of hands gently; Do not shake vigorously . WASTE: F/P - Black; E - Municipal Trash Bin Stable for 28 days at room temperatur e. Expires in days from ____Date Insulin 2020-0 No Notes: Memoria Lispro 6-12 (Same as: l 16:30: Humalog) Brian 00 Roll in palms of hands gently; Do not shake vigorously . WASTE: F/P - Black; E - Municipal Trash Bin Stable for 28 days at room temperatur e. Expires in days from ____Date Insulin 2020-0 No Notes: Memoria Lispro 6-12 (Same as: l 16:30: Humalog) Brian 00 Roll in palms of hands gently; Do not shake vigorously . WASTE: F/P - Black; E - Municipal Trash Bin Stable for 28 days at room temperatur e. Expires in days from ____Date Insulin 2020-0 No Notes: Memoria Lispro 6-12 (Same as: l 16:30: Humalog) [place] 00 Roll in palms of hands gently; Do not shake vigorously . WASTE: F/P - Black; E - Municipal Trash Bin Stable for 28 days at room temperatur e. Expires in days from ____Date Insulin 2020-0 No Notes: Memoria Lispro 6-12 (Same as: l 16:30: Humalog) [place] 00 Roll in palms of hands gently; Do not shake vigorously . WASTE: F/P - Black; E - Municipal Trash Bin Stable for 28 days at room temperatur e. Expires in days from ____Date sennosides, 2020-0 No 34 mg, 2 Me moria ALF 6-12 tab, l 14:00: Route: PO, Brian 00 Drug Form: TAB, Dosing Weight 96.364, kg, Daily, Start date: 12/08/19 9:00:00 CDT, Duration: 30 day, Stop date: 01/06/20 9:00:00 CDT Senokot 2020-0 No Notes: Memoria 6-12 (Same as: l 14:00: Senokot) Brian 00 sennosides, 2020-0 No 34 mg, 2 Me moria ALF 6-12 tab, l 14:00: Route: PO, Brian 00 Drug Form: TAB, Dosing Weight 96.364, kg, Daily, Start date: 12/08/19 9:00:00 CDT, Duration: 30 day, Stop date: 01/06/20 9:00:00 CDT Senokot 2020-0 No Notes: Memoria 6-12 (Same as: l 14:00: Senokot) Brian 00 sennosides, 2019-0 No 34 mg, 2 Me moria ALF 6-12 tab, l 14:00: Route: PO, Brian 00 Drug Form: TAB, Dosing Weight 96.364, kg, Daily, Start date: 12/08/19 9:00:00 CDT, Duration: 30 day, Stop date: 01/06/20 9:00:00 CDT Senokot 2020-0 No Notes: Memoria 6-12 (Same as: l 14:00: Senokot) [place] 00 sennosides, 2019-0 No 34 mg, 2 Me moria ALF 6-12 tab, l 14:00: Route: PO, Brian 00 Drug Form: TAB, Dosing Weight 96.364, kg, Daily, Start date: 12/08/19 9:00:00 CDT, Duration: 30 day, Stop date: 01/06/20 9:00:00 CDT Senokot 2020-0 No Notes: Memoria 6-12 (Same as: l 14:00: Senokot) Brian 00 sennosides, 2019-0 No 34 mg, 2 Me moria ALF 6-12 tab, l 14:00: Route: PO, [place] 00 Drug Form: TAB, Dosing Weight 96.364, kg, Daily, Start date: 12/08/19 9:00:00 CDT, Duration: 30 day, Stop date: 01/06/20 9:00:00 CDT Senokot 2020-0 No Notes: Memoria 6-12 (Same as: l 14:00: Senokot) Brian 00 sennosides, 2019-0 No 34 mg, 2 Me moria ALF 6-12 tab, l 14:00: Route: PO, [place] 00 Drug Form: TAB, Dosing Weight 96.364, kg, Daily, Start date: 12/08/19 9:00:00 CDT, Duration: 30 day, Stop date: 01/06/20 9:00:00 CDT Senokot 2020-0 No Notes: Memoria 6-12 (Same as: l 14:00: Senokot) [place] 00 sennosides, 2020-0 No 34 mg, 2 Me moria ALF 6-12 tab, l 14:00: Route: PO, Brian 00 Drug Form: TAB, Dosing Weight 96.364, kg, Daily, Start date: 12/08/19 9:00:00 CDT, Duration: 30 day, Stop date: 01/06/20 9:00:00 CDT Senokot 2020-0 No Notes: Memoria 6-12 (Same as: l 14:00: Senokot) Brian 00 sennosides, 2020-0 No 34 mg, 2 Me moria ALF 6-12 tab, l 14:00: Route: PO, Brian 00 Drug Form: TAB, Dosing Weight 96.364, kg, Daily, Start date: 12/08/19 9:00:00 CDT, Duration: 30 day, Stop date: 01/06/20 9:00:00 CDT Senokot 2020-0 No Notes: Memoria 6-12 (Same as: l 14:00: Senokot) Brian sennosides, 2019-0 No 34 mg, 2 Me moria ALF 6-12 tab, l 14:00: Route: PO, [place] 00 Drug Form: TAB, Dosing Weight 96.364, kg, Daily, Start date: 12/08/19 9:00:00 CDT, Duration: 30 day, Stop date: 01/06/20 9:00:00 CDT Senokot 2020-0 No Notes: Memoria 6-12 (Same as: l 14:00: Senokot) Brian 00 sennosides, 2020-0 No 34 mg, 2 Me moria ALF 6-12 tab, l 14:00: Route: PO, [place] 00 Drug Form: TAB, Dosing Weight 96.364, kg, Daily, Start date: 12/08/19 9:00:00 CDT, Duration: 30 day, Stop date: 01/06/20 9:00:00 CDT Senokot 2020-0 No Notes: Memoria 6-12 (Same as: l 14:00: Senokot) [place] 00 sennosides, 2020-0 No 34 mg, 2 Me moria ALF 6-12 tab, l 14:00: Route: PO, Brian 00 Drug Form: TAB, Dosing Weight 96.364, kg, Daily, Start date: 12/08/19 9:00:00 CDT, Duration: 30 day, Stop date: 01/06/20 9:00:00 CDT Senokot No Notes: Memoria 6-12 (Same as: l 14:00: Senokot) sennosides, No 34 mg, 2 Me moria ALF 6-12 tab, l 14:00: Route: PO, Drug [...] as: l tablet, 02:00: Adalat CC, Herm Procardia release XL) Give on empty stomach. Take 1 hour before or 2 hours after meal; "Avoid grapefruit and grapefruit juice". Do not crush Crestor No Notes: Memoria 6-12 (Same As: l 02:00: Crestor) carvedilol No Notes: Memor ia 6-12 Give with l 02:00: food. (Same As: Coreg) gabapentin No Notes: Memor ia 6-12 (Same as: l 02:00: Neurontin) irbesartan No Notes: Memor ia 6-12 (Same l 02:00: as:Avapro) NIFEdipine No Notes: Memor ia 60 mg oral 6-12 (Same as: l tablet, 02:00: Adalat CC, Herm sarah extended 00 Procardia release XL) Give on empty stomach. Take 1 hour before or 2 hours after meal; "Avoid grapefruit and grapefruit juice". Do not crush Crestor 2020-0 No Notes: Memoria 6-12 (Same As: l 02:00: Crestor) carvedilol 2019-0 No Notes: Memor ia 6-12 Give with l 02:00: food. (Same As: Coreg) gabapentin 2019-0 No Notes: Memor ia 6-12 (Same as: l 02:00: Neurontin) irbesartan No Notes: Memor ia 6-12 (Same l 02:00: as:Avapro) NIFEdipine 2019-0 No Notes: Memor ia 60 mg oral 6-12 (Same as: l tablet, 02:00: Adalat CC, Herm sarah extended 00 Procardia release XL) Give on empty stomach. Take 1 hour before or 2 hours after meal; "Avoid grapefruit and grapefruit juice". Do not crush Crestor 2020-0 No Notes: Memoria 6-12 (Same As: l 02:00: Crestor) carvedilol No Notes: Memor ia 6-12 Give with l 02:00: food. (Same As: Coreg) gabapentin 0 No Notes: Memor ia 6-12 (Same as: l 02:00: Neurontin) irbesartan 0 No Notes: Memor ia 6-12 (Same l 02:00: as:Avapro) NIFEdipine 2019-0 No Notes: Memor ia 60 mg oral 6-12 (Same as: l tablet, 02:00: Adalat CC, Herm sarah extended 00 Procardia release XL) Give on empty stomach. Take 1 hour before or 2 hours after meal; "Avoid grapefruit and grapefruit juice". Do not crush Crestor 2020-0 No Notes: Memoria 6-12 (Same As: l 02:00: Crestor) carvedilol 2019-0 No Notes: Memor ia 6-12 Give with l 02:00: food. (Same As: Coreg) gabapentin 2019-0 No Notes: Memor ia 6-12 (Same as: l 02:00: Neurontin) irbesartan 0 No Notes: Memor ia 6-12 (Same l 02:00: as:Avapro) NIFEdipine No Notes: Memor ia 60 mg oral 6-12 (Same as: l tablet, 02:00: Adalat CC, Herm sarah extended 00 Procardia release XL) Give on empty stomach. Take 1 hour before or 2 hours after meal; "Avoid grapefruit and grapefruit juice". Do not crush Crestor 2019-0 No Notes: Memoria 6-12 (Same As: l 02:00: Crestor) carvedilol No Notes: Memor ia 6-12 Give with l 02:00: food. (Same As: Coreg) gabapentin No Notes: [facility] ia 6-12 (Same as: l 02:00: Neurontin) irbesartan No Notes: Memor ia 6-12 (Same l 02:00: as:Avapro) NIFEdipine No Notes: [facility] ia 60 mg oral 6-12 (Same as: l tablet, 02:00: Adalat CC, Herm sarah extended 00 Procardia release XL) Give on empty stomach. Take 1 hour before or 2 hours after meal; "Avoid grapefruit and grapefruit juice". Do not crush Crestor 2019-0 No Notes: Memoria 6-12 (Same As: l 02:00: Crestor) carvedilol No Notes: [facility] ia 6-12 Give with l 02:00: food. (Same As: Coreg) gabapentin No Notes: [facility]or ia 6-12 (Same as: l 02:00: Neurontin) irbesartan No Notes: Memor ia 6-12 (Same l 02:00: as:Avapro) NIFEdipine No Notes: [facility]or ia 60 mg oral 6-12 (Same as: l tablet, 02:00: Adalat CC, Herm sarah extended 00 Procardia release XL) Give on empty stomach. Take 1 hour before or 2 hours after meal; "Avoid grapefruit and grapefruit juice". Do not crush Crestor 2020-0 No Notes: [facility]oria 6-12 (Same As: l 02:00: Crestor) carvedilol 2019-0 No Notes: [facility] ia 6-12 Give with l 02:00: food. (Same As: Coreg) gabapentin 2019-0 No Notes: [facility] ia 6-12 (Same as: l 02:00: Neurontin) irbesartan 0 No Notes: [facility]or ia 6-12 (Same l 02:00: as:Avapro) NIFEdipine 0 No Notes: [facility] ia 60 mg oral 6-12 (Same as: l tablet, 02:00: Adalat CC, Herm sarah extended 00 Procardia release XL) Give on empty stomach. Take 1 hour before or 2 hours after meal; "Avoid grapefruit and grapefruit juice". Do not crush Crestor 2020-0 No Notes: [facility]oria 6-12 (Same As: l 02:00: Crestor) carvedilol 0 No Notes: [facility] ia 6-12 Give with l 02:00: food. (Same As: Coreg) gabapentin 0 No Notes: [facility] ia 6-12 (Same as: l 02:00: Neurontin) irbesartan 0 No Notes: [facility] ia 6-12 (Same l 02:00: as:Avapro) NIFEdipine 2019-0 No Notes: [facility] ia 60 mg oral 6-12 (Same as: l tablet, 02:00: Adalat CC, Herm sarah extended 00 Procardia release XL) Give on empty stomach. Take 1 hour before or 2 hours after meal; "Avoid grapefruit and grapefruit juice". Do not crush Crestor 2020-0 No Notes: Memoria 6-12 (Same As: l 02:00: Crestor) carvedilol 2019-0 No Notes: Memor ia 6-12 Give with l 02:00: food. (Same As: Coreg) gabapentin 2019-0 No Notes: Memor ia 6-12 (Same as: l 02:00: Neurontin) irbesartan 0 No Notes: Memor ia 6-12 (Same l 02:00: as:Avapro) NIFEdipine 2019-0 No Notes: Memor ia 60 mg oral 6-12 (Same as: l tablet, 02:00: Adalat CC, Herm sarah extended 00 Procardia release XL) Give on empty stomach. Take 1 hour before or 2 hours after meal; "Avoid grapefruit and grapefruit juice". Do not crush Crestor 2020-0 No Notes: Memoria 6-12 (Same As: l 02:00: Crestor) carvedilol 2019-0 No Notes: Memor ia 6-12 Give with l 02:00: food. (Same As: Coreg) gabapentin 0 No Notes: Memor ia 6-12 (Same as: l 02:00: Neurontin) irbesartan No Notes: Memor ia 6-12 (Same l 02:00: as:Avapro) NIFEdipine 2019-0 No Notes: Memor ia 60 mg oral 6-12 (Same as: l tablet, 02:00: Adalat CC, Herm sarah extended 00 Procardia release XL) Give on empty stomach. Take 1 hour before or 2 hours after meal; "Avoid grapefruit and grapefruit juice". Do not crush Crestor 2019-0 No Notes: Memoria 6-12 (Same As: l 02:00: Crestor) carvedilol 0 No Notes: Memor ia 6-12 Give with l 02:00: food. (Same As: Coreg) gabapentin 0 No Notes: Memor ia 6-12 (Same as: l 02:00: Neurontin) irbesartan 0 No Notes: Memor ia 6-12 (Same l 02:00: as:Avapro) NIFEdipine 2019-0 No Notes: Memor ia 60 mg oral 6-12 (Same as: l tablet, 02:00: Adalat CC, Herm sarah extended 00 Procardia release XL) Give on empty stomach. Take 1 hour before or 2 hours after meal; "Avoid grapefruit and grapefruit juice". Do not crush Crestor 2020-0 No Notes: Memoria 6-12 (Same As: l 02:00: Crestor) latanoprost 2020-0 No Notes: Jacinto margarita 6-11 Keep l 22:00: refrigerat [place] 00 ed. (Same as:Xalatan ) Opened bottle may be stored at room temperatur e for 6 weeks latanoprost 2020-0 No Notes: Jacinto margarita 6-11 Keep l 22:00: refrigerat [place] 00 ed. (Same as:Xalatan ) Opened bottle may be stored at room temperatur e for 6 weeks latanoprost 2020-0 No Notes: Jacinto margarita 6-11 Keep l 22:00: refrigerat Brian 00 ed. (Same as:Xalatan ) Opened bottle may be stored at room temperatur e for 6 weeks latanoprost 2020-0 No Notes: Jacinto margarita 6-11 Keep l 22:00: refrigerat [place] 00 ed. (Same as:Xalatan ) Opened bottle may be stored at room temperatur e for 6 weeks latanoprost 2020-0 No Notes: Jacinto margarita 6-11 Keep l 22:00: refrigerat [place] 00 ed. (Same as:Xalatan ) Opened bottle may be stored at room temperatur e for 6 weeks latanoprost 2020-0 No Notes: Jacinto margarita 6-11 Keep l 22:00: refrigerat [place] 00 ed. (Same as:Xalatan ) Opened bottle may be stored at room temperatur e for 6 weeks latanoprost 2020-0 No Notes: Jacinto margarita 6-11 Keep l 22:00: refrigerat [place] 00 ed. (Same as:Xalatan ) Opened bottle may be stored at room temperatur e for 6 weeks latanoprost 2020-0 No Notes: Jacinto margarita 6-11 Keep l 22:00: refrigerat [place] 00 ed. (Same as:Xalatan ) Opened bottle may be stored at room temperatur e for 6 weeks latanoprost 2020-0 No Notes: Jacinto margarita 6-11 Keep l 22:00: refrigerat [place] 00 ed. (Same as:Xalatan ) Opened bottle may be stored at room temperatur e for 6 weeks latanoprost 2020-0 No Notes: Jacinto margarita 6-11 Keep l 22:00: refrigerat [place] 00 ed. (Same as:Xalatan ) Opened bottle may be stored at room temperatur e for 6 weeks latanoprost 2020-0 No Notes: Jacinto margarita 6-11 Keep l 22:00: refrigerat [place] 00 ed. (Same as:Xalatan ) Opened bottle may be stored at room temperatur e for 6 weeks latanoprost 2020-0 No Notes: Jacinto margarita 6-11 Keep l 22:00: refrigerat [place] 00 ed. (Same as:Xalatan ) Opened bottle may be stored at room temperatur e for 6 weeks Vitamin D3 2020-0 No 50,000 Memor ia 6-11 IntlUnit, l 18:00: 1 cap, [place] 00 Route: PO, Drug form: CAP, qWeek, Dosing Weight 96.364, kg, Start date: 12/07/19 13:00:00 CDT, Duration: 30 day, Stop date: 01/04/20 9:00:00 CDT Vitamin D3 2020-0 No 50,000 Memor ia 6-11 IntlUnit, l 18:00: 1 cap, [place] 00 Route: PO, Drug form: CAP, qWeek, Dosing Weight 96.364, kg, Start date: 12/07/19 13:00:00 CDT, Duration: 30 day, Stop date: 01/04/20 9:00:00 CDT Vitamin D3 2020-0 No 50,000 Memor ia 6-11 IntlUnit, l 18:00: 1 cap, [place] 00 Route: PO, Drug form: CAP, qWeek, Dosing Weight 96.364, kg, Start date: 12/07/19 13:00:00 CDT, Duration: 30 day, Stop date: 01/04/20 9:00:00 CDT Vitamin D3 2020-0 No 50,000 Mem[facility] ia 6-11 IntlUnit, l 18:00: 1 cap, [place] 00 Route: PO, Drug form: CAP, qWeek, Dosing Weight 96.364, kg, Start date: 12/07/19 13:00:00 CDT, Duration: 30 day, Stop date: 01/04/20 9:00:00 CDT Vitamin D3 2020-0 No 50,000 [facility] ia 6-11 IntlUnit, l 18:00: 1 cap, [place] 00 Route: PO, Drug form: CAP, qWeek, Dosing Weight 96.364, kg, Start date: 12/07/19 13:00:00 CDT, Duration: 30 day, Stop date: 01/04/20 9:00:00 CDT Vitamin D3 2020-0 No 50,000 [facility] ia 6-11 IntlUnit, l 18:00: 1 cap, [place] 00 Route: PO, Drug form: CAP, qWeek, Dosing Weight 96.364, kg, Start date: 12/07/19 13:00:00 CDT, Duration: 30 day, Stop date: 01/04/20 9:00:00 CDT Vitamin D3 2020-0 No 50,000 Memor ia 6-11 IntlUnit, l 18:00: 1 cap, [place] 00 Route: PO, Drug form: CAP, qWeek, Dosing Weight 96.364, kg, Start date: 12/07/19 13:00:00 CDT, Duration: 30 day, Stop date: 01/04/20 9:00:00 CDT Vitamin D3 2020-0 No 50,000 Mem[facility] ia 6-11 IntlUnit, l 18:00: 1 cap, [place] 00 Route: PO, Drug form: CAP, qWeek, Dosing Weight 96.364, kg, Start date: 12/07/19 13:00:00 CDT, Duration: 30 day, Stop date: 01/04/20 9:00:00 CDT Vitamin D3 2020-0 No 50,000 Memor ia 6-11 IntlUnit, l 18:00: 1 cap, [place] 00 Route: PO, Drug form: CAP, qWeek, Dosing Weight 96.364, kg, Start date: 12/07/19 13:00:00 CDT, Duration: 30 day, Stop date: 01/04/20 9:00:00 CDT Vitamin D3 2020-0 No 50,000 [facility] ia 6-11 IntlUnit, l 18:00: 1 cap, [place] 00 Route: PO, Drug form: CAP, qWeek, Dosing Weight 96.364, kg, Start date: 12/07/19 13:00:00 CDT, Duration: 30 day, Stop date: 01/04/20 9:00:00 CDT Vitamin D3 2020-0 No 50,000 Mem[facility] ia 6-11 IntlUnit, l 18:00: 1 cap, [place] 00 Route: PO, Drug form: CAP, qWeek, Dosing Weight 96.364, kg, Start date: 12/07/19 13:00:00 CDT, Duration: 30 day, Stop date: 01/04/20 9:00:00 CDT Vitamin D3 No 50,000 [facility] ia 6-11 IntlUnit, l 18:00: 1 cap, [place] 00 Route: PO, Drug form: CAP, qWeek, Dosing Weight 96.364, kg, Start date: 12/07/19 13:00:00 CDT, Duration: 30 day, Stop date: 01/04/20 9:00:00 CDT Alprazolam No Notes: Memor ia 0.25 MG 6-11 With food l Oral Tablet 17:54: or milk Her guzman 00 (Same as: Xanax) Alprazolam No Notes: Memor ia 0.25 MG 6-11 With food l Oral Tablet 17:54: or milk Her guzman 00 (Same as: Xanax) Alprazolam No Notes: Memor ia 0.25 MG 6-11 With food l Oral Tablet 17:54: or milk Her guzman 00 (Same as: Xanax) Alprazolam No Notes: Memor ia 0.25 MG 6-11 With food l Oral Tablet 17:54: or milk Her guzman 00 (Same as: Xanax) Alprazolam No Notes: Memor ia 0.25 MG 6-11 With food l Oral Tablet 17:54: or milk Her guzman 00 (Same as: Xanax) Alprazolam No Notes: Memor ia 0.25 MG 6-11 With food l Oral Tablet 17:54: or milk Her guzman 00 (Same as: Xanax) Alprazolam 0 No Notes: Memor ia 0.25 MG 6-11 With food l Oral Tablet 17:54: or milk Her guzman 00 (Same as: Xanax) Alprazolam No Notes: Memor ia 0.25 MG 6-11 With food l Oral Tablet 17:54: or milk Her guzman 00 (Same as: Xanax) Alprazolam 0 No Notes: Memor ia 0.25 MG 6-11 With food l Oral Tablet 17:54: or milk Her guzman 00 (Same as: Xanax) Alprazolam No Notes: Memor ia 0.25 MG 6-11 With food l Oral Tablet 17:54: or milk Her guzman 00 (Same as: Xanax) Alprazolam No Notes: Memor ia 0.25 MG 6-11 With food l Oral Tablet 17:54: or milk Her guzman 00 (Same as: Xanax) Alprazolam No Notes: Memor ia 0.25 MG 6-11 With food l Oral Tablet 17:54: or milk Her guzman 00 (Same as: Xanax) Humulin R 2019-0 Yes Humulin R Mem oria U-500 6-11 U-500, 10, l 15:56: SUB-Q, [place] 00 BID-Meals, Refill(s) 0 SymlinPen 2019-0 No SymlinPen Mem [facility]ria 120 6-11 120 l (Pramlintid 15:56: (Pramlinti [place] e acetate) 00 de acetate), 120mcg, SUB-Q, Daily, Refill(s) 0 Humulin R 2020-0 Yes Humulin R Mem [facility] U-500 6-11 U-500, 10, l 15:56: SUB-Q, [place] 00 BID-Meals, Refill(s) 0 SymlinPen 2019-0 No SymlinPen Mem [facility]ria 120 6-11 120 l (Pramlintid 15:56: (Pramlinti [place] e acetate) 00 de acetate), 120mcg, SUB-Q, Daily, Refill(s) 0 Humulin R 2020-0 Yes Humulin R Mem [facility] U-500 6-11 U-500, 10, l 15:56: SUB-Q, [place] 00 BID-Meals, Refill(s) 0 SymlinPen 2019-0 No SymlinPen [facility] 120 6-11 120 l (Pramlintid 15:56: (Pramlinti [place] e acetate) 00 de acetate), 120mcg, SUB-Q, Daily, Refill(s) 0 Humulin R 2020-0 Yes Humulin R [facility] U-500 6-11 U-500, 10, l 15:56: SUB-Q, [place] 00 BID-Meals, Refill(s) 0 SymlinPen 2020-0 No SymlinPen [facility] 120 6-11 120 l (Pramlintid 15:56: (Pramlinti [place] e acetate) 00 de acetate), 120mcg, SUB-Q, Daily, Refill(s) 0 Humulin R 2020-0 Yes Humulin R Mem [facility] U-500 6-11 U-500, 10, l 15:56: SUB-Q, [place] 00 BID-Meals, Refill(s) 0 SymlinPen 2020-0 No SymlinPen [facility] 120 6-11 120 l (Pramlintid 15:56: (Pramlinti [place] e acetate) 00 de acetate), 120mcg, SUB-Q, Daily, Refill(s) 0 Humulin R 2020-0 Yes Humulin R [facility] U-500 6-11 U-500, 10, l 15:56: SUB-Q, [place] 00 BID-Meals, Refill(s) 0 SymlinPen 2020-0 No SymlinPen [facility] 120 6-11 120 l (Pramlintid 15:56: (Pramlinti [place] e acetate) 00 de acetate), 120mcg, SUB-Q, Daily, Refill(s) 0 Humulin R 2020-0 Yes Humulin R [facility] U-500 6-11 U-500, 10, l 15:56: SUB-Q, [place] 00 BID-Meals, Refill(s) 0 SymlinPen 2020-0 No SymlinPen Mem [facility] 120 6-11 120 l (Pramlintid 15:56: (Pramlinti [place] e acetate) 00 de acetate), 120mcg, SUB-Q, Daily, Refill(s) 0 Humulin R 2020-0 Yes Humulin R [facility] U-500 6-11 U-500, 10, l 15:56: SUB-Q, [place] 00 BID-Meals, Refill(s) 0 SymlinPen 2020-0 No SymlinPen [facility] 120 6-11 120 l (Pramlintid 15:56: (Pramlinti [place] e acetate) 00 de acetate), 120mcg, SUB-Q, Daily, Refill(s) 0 Humulin R 2020-0 Yes Humulin R [facility] U-500 6-11 U-500, 10, l 15:56: SUB-Q, [place] 00 BID-Meals, Refill(s) 0 SymlinPen 2020-0 No SymlinPen [facility] 120 6-11 120 l (Pramlintid 15:56: (Pramlinti [place] e acetate) 00 de acetate), 120mcg, SUB-Q, Daily, Refill(s) 0 Humulin R 2020-0 Yes Humulin R [facility] U-500 6-11 U-500, 10, l 15:56: SUB-Q, [place] 00 BID-Meals, Refill(s) 0 SymlinPen 2020-0 No SymlinPen [facility] 120 6-11 120 l (Pramlintid 15:56: (Pramlinti [place] e acetate) 00 de acetate), 120mcg, SUB-Q, Daily, Refill(s) 0 Humulin R 2020-0 Yes Humulin R Mem [facility] U-500 6-11 U-500, 10, l 15:56: SUB-Q, [place] 00 BID-Meals, Refill(s) 0 SymlinPen 2020-0 No SymlinPen Mem [facility] 120 6-11 120 l (Pramlintid 15:56: (Pramlinti [place] e acetate) 00 de acetate), 120mcg, SUB-Q, Daily, Refill(s) 0 Humulin R 2020-0 Yes Humulin R [facility] U-500 6-11 U-500, 10, l 15:56: SUB-Q, [place] 00 BID-Meals, Refill(s) 0 SymlinPen 2020-0 No SymlinPen [facility] 120 6-11 120 l (Pramlintid 15:56: (Pramlinti [place] e acetate) 00 de acetate), 120mcg, SUB-Q, Daily, Refill(s) 0 Insulin 2020-0 No Notes: Memoria Glargine 6-11 (Same as: l 14:00: Lantus) Do not hold insulin without contacting prescriber WASTE: F/P - Black; E - Municipal Trash Bin "single patient use only" Stable for 28 days at room temperatur e Expires in days from ____Date Insulin 2020-0 No Notes: Memoria Glargine 6-11 (Same as: l 14:00: Lantus) Do [place] 00 not hold insulin without contacting prescriber WASTE: F/P - Black; E - Municipal Trash Bin "single patient use only" Stable for 28 days at room temperatur e Expires in days from ____Date Insulin 2020-0 No Notes: Memoria Glargine 6-11 (Same as: l 14:00: Lantus) Do [place] not hold insulin without contacting prescriber WASTE: F/P - Black; E - Municipal Trash Bin "single patient use only" Stable for 28 days at room temperatur e Expires in days from ____Date Insulin 2020-0 No Notes: Memoria Glargine 6-11 (Same as: l 14:00: Lantus) Do [place] not hold insulin without contacting prescriber WASTE: F/P - Black; E - Municipal Trash Bin "single patient use only" Stable for 28 days at room temperatur e Expires in days from ____Date Insulin 2020-0 No Notes: Memoria Glargine 6-11 (Same as: l 14:00: Lantus) Do Brian not hold insulin without contacting prescriber WASTE: F/P - Black; E - Municipal Trash Bin "single patient use only" Stable for 28 days at room temperatur e Expires in days from ____Date Insulin 2020-0 No Notes: Memoria Glargine 6-11 (Same as: l 14:00: Lantus) Do [place] not hold insulin without contacting prescriber WASTE: F/P - Black; E - Municipal Trash Bin "single patient use only" Stable for 28 days at room temperatur e Expires in days from ____Date Insulin 2020-0 No Notes: Memoria Glargine 6-11 (Same as: l 14:00: Lantus) Do [place] 00 not hold insulin without contacting prescriber WASTE: F/P - Black; E - Municipal Trash Bin "single patient use only" Stable for 28 days at room temperatur e Expires in days from ____Date Insulin 2020-0 No Notes: Memoria Glargine 6-11 (Same as: l 14:00: Lantus) Do [place] 00 not hold insulin without contacting prescriber WASTE: F/P - Black; E - Municipal Trash Bin "single patient use only" Stable for 28 days at room temperatur e Expires in days from ____Date Insulin 2020-0 No Notes: Memoria Glargine 6-11 (Same as: l 14:00: Lantus) Do [place] not hold insulin without contacting prescriber WASTE: F/P - Black; E - Municipal Trash Bin "single patient use only" Stable for 28 days at room temperatur e Expires in days from ____Date Insulin 2020-0 No Notes: Memoria Glargine 6-11 (Same as: l 14:00: Lantus) Do [place] not hold insulin without contacting prescriber WASTE: F/P - Black; E - Municipal Trash Bin "single patient use only" Stable for 28 days at room temperatur e Expires in days from ____Date Insulin 2020-0 No Notes: Memoria Glargine 6-11 (Same as: l 14:00: Lantus) Do [place] 00 not hold insulin without contacting prescriber WASTE: F/P - Black; E - Municipal Trash Bin "single patient use only" Stable for 28 days at room temperatur e Expires in days from ____Date Insulin 2020-0 No Notes: Memoria Glargine 6-11 (Same as: l 14:00: Lantus) Do not hold insulin without contacting prescriber WASTE: F/P - Black; E - Municipal Trash Bin "single patient use only" Stable for 28 days at room temperatur e Expires in days from ____Date BD Normal 2020-0 No Notes: Memori a Saline 6-11 (Same as: l Flush 13:00: BD [place] 00 Posiflush) Sodium 2020-0 No 25 mL, Memoria Chloride 6-11 Route: IV, l 0.9% IV 13:00: Start [place] 00 date: 12/07/19 8:00:00 CDT, Duration: 30 day, Stop date: 01/06/20 7:59:00 CDT, PRN Line Flush, 0 BD Normal 2020-0 No Notes: Memori a Saline 6-11 (Same as: l Flush 13:00: BD [place] 00 Posiflush) Sodium 2020-0 No 25 mL, Memoria Chloride 6-11 Route: IV, l 0.9% IV 13:00: date: 12/07/19 8:00:00 CDT, Duration: 30 day, Stop date: 01/06/20 7:59:00 CDT, PRN Line Flush, 0 BD Normal 2020-0 No Notes: Memori a Saline 6-11 (Same as: l Flush 13:00: BD [place] 00 Posiflush) Sodium 2020-0 No 25 mL, Memoria Chloride 6-11 Route: IV, l 0.9% IV 13:00: date: 12/07/19 8:00:00 CDT, Duration: 30 day, Stop date: 01/06/20 7:59:00 CDT, PRN Line Flush, 0 BD Normal 2020-0 No Notes: Memori a Saline 6-11 (Same as: l Flush 13:00: BD [place] 00 Posiflush) Sodium 2020-0 No 25 mL, Memoria Chloride 6-11 Route: IV, l 0.9% IV 13:00: Start [place] 00 date: 12/07/19 8:00:00 CDT, Duration: 30 day, Stop date: 01/06/20 7:59:00 CDT, PRN Line Flush, 0 BD Normal 2020-0 No Notes: Memori a Saline 6-11 (Same as: l Flush 13:00: BD [place] Posiflush) Sodium 2020-0 No 25 mL, Memoria Chloride 6-11 Route: IV, l 0.9% IV 13:00: date: 12/07/19 8:00:00 CDT, Duration: 30 day, Stop date: 01/06/20 7:59:00 CDT, PRN Line Flush, 0 BD Normal 2020-0 No Notes: Memori a Saline 6-11 (Same as: l Flush 13:00: BD [place] 00 Posiflush) Sodium 2020-0 No 25 mL, Memoria Chloride 6-11 Route: IV, l 0.9% IV 13:00: date: 12/07/19 8:00:00 CDT, Duration: 30 day, Stop date: 01/06/20 7:59:00 CDT, PRN Line Flush, 0 BD Normal 2020-0 No Notes: Memori a Saline 6-11 (Same as: l Flush 13:00: BD [place] 00 Posiflush) Sodium 2020-0 No 25 mL, Memoria Chloride 6-11 Route: IV, l 0.9% IV 13:00: date: 12/07/19 8:00:00 CDT, Duration: 30 day, Stop date: 01/06/20 7:59:00 CDT, PRN Line Flush, 0 BD Normal 2020-0 No Notes: Memori a Saline 6-11 (Same as: l Flush 13:00: BD [place] Posiflush) Sodium 2020-0 No 25 mL, Memoria Chloride 6-11 Route: IV, l 0.9% IV 13:00: date: 12/07/19 8:00:00 CDT, Duration: 30 day, Stop date: 01/06/20 7:59:00 CDT, PRN Line Flush, 0 BD Normal 2020-0 No Notes: Memori a Saline 6-11 (Same as: l Flush 13:00: BD [place] 00 Posiflush) Sodium 2020-0 No 25 mL, Memoria Chloride 6-11 Route: IV, l 0.9% IV 13:00: Start [place] 00 date: 12/07/19 8:00:00 CDT, Duration: 30 day, Stop date: 01/06/20 7:59:00 CDT, PRN Line Flush, 0 BD Normal 2020-0 No Notes: Memori a Saline 6-11 (Same as: l Flush 13:00: BD [place] 00 Posiflush) Sodium 2020-0 No 25 mL, Memoria Chloride 6-11 Route: IV, l 0.9% IV 13:00: Start [place] 00 date: 12/07/19 8:00:00 CDT, Duration: 30 day, Stop date: 01/06/20 7:59:00 CDT, PRN Line Flush, 0 BD Normal 2020-0 No Notes: Memori a Saline 6-11 (Same as: l Flush 13:00: BD [place] 00 Posiflush) Sodium 2020-0 No 25 mL, Memoria Chloride 6-11 Route: IV, l 0.9% IV 13:00: Start [place] 00 date: 12/07/19 8:00:00 CDT, Duration: 30 day, Stop date: 01/06/20 7:59:00 CDT, PRN Line Flush, 0 BD Normal 2020-0 No Notes: Memori a Saline 6-11 (Same as: l Flush 13:00: BD [place] 00 Posiflush) Sodium 2020-0 No 25 mL, Memoria Chloride 6-11 Route: IV, l 0.9% IV 13:00: Start date: 12/07/19 8:00:00 CDT, Duration: 30 day, Stop date: 01/06/20 7:59:00 CDT, PRN Line Flush, 0 Insulin 2020-0 No Notes: Memoria Lispro 6-11 (Same as: l 12:51: Humalog) Roll in palms of hands gently; Do not shake vigorously . WASTE: F/P - Black; E - Municipal Trash Bin Stable for 28 days at room temperatur e. Expires in days from ____Date Insulin 2020-0 No Notes: Memoria Lispro 6-11 (Same as: l 12:51: Humalog) [place] 00 Roll in palms of hands gently; Do not shake vigorously . WASTE: F/P - Black; E - Municipal Trash Bin Stable for 28 days at room temperatur e. Expires in days from ____Date Insulin 2020-0 No Notes: Memoria Lispro 6-11 (Same as: l 12:51: Humalog) [place] 00 Roll in palms of hands gently; Do not shake vigorously . WASTE: F/P - Black; E - Municipal Trash Bin Stable for 28 days at room temperatur e. Expires in days from ____Date Insulin 2020-0 No Notes: Memoria Lispro 6-11 (Same as: l 12:51: Humalog) [place] 00 Roll in palms of hands gently; Do not shake vigorously . WASTE: F/P - Black; E - Municipal Trash Bin Stable for 28 days at room temperatur e. Expires in days from ____Date Insulin 2020-0 No Notes: Memoria Lispro 6-11 (Same as: l 12:51: Humalog) [place] 00 Roll in palms of hands gently; Do not shake vigorously . WASTE: F/P - Black; E - Municipal Trash Bin Stable for 28 days at room temperatur e. Expires in days from ____Date Insulin 2020-0 No Notes: Memoria Lispro 6-11 (Same as: l 12:51: Humalog) [place] 00 Roll in palms of hands gently; Do not shake vigorously . WASTE: F/P - Black; E - Municipal Trash Bin Stable for 28 days at room temperatur e. Expires in days from ____Date Insulin 2020-0 No Notes: Memoria Lispro 6-11 (Same as: l 12:51: Humalog) [place] 00 Roll in palms of hands gently; Do not shake vigorously . WASTE: F/P - Black; E - Municipal Trash Bin Stable for 28 days at room temperatur e. Expires in days from ____Date Insulin 2020-0 No Notes: [facility]oria Lispro 6-11 (Same as: l 12:51: Humalog) [place] 00 Roll in palms of hands gently; Do not shake vigorously . WASTE: F/P - Black; E - Municipal Trash Bin Stable for 28 days at room temperatur e. Expires in days from ____Date Insulin 2020-0 No Notes: [facility] Lispro 6-11 (Same as: l 12:51: Humalog) [place] 00 Roll in palms of hands gently; Do not shake vigorously . WASTE: F/P - Black; E - Municipal Trash Bin Stable for 28 days at room temperatur e. Expires in days from ____Date Insulin 2020-0 No Notes: [facility]oria Lispro 6-11 (Same as: l 12:51: Humalog) [place] 00 Roll in palms of hands gently; Do not shake vigorously . WASTE: F/P - Black; E - Municipal Trash Bin Stable for 28 days at room temperatur e. Expires in days from ____Date Insulin 2020-0 No Notes: [facility] Lispro 6-11 (Same as: l 12:51: Humalog) [place] 00 Roll in palms of hands gently; Do not shake vigorously . WASTE: F/P - Black; E - Municipal Trash Bin Stable for 28 days at room temperatur e. Expires in days from ____Date Insulin 2020-0 No Notes: [facility] Lispro 6-11 (Same as: l 12:51: Humalog) [place] 00 Roll in palms of hands gently; Do not shake vigorously . WASTE: F/P - Black; E - Municipal Trash Bin Stable for 28 days at room temperatur e. Expires in days from ____Date Vancomycin 2020-0 No 2001 mg: Me moria 6-10 infuse l 17:00: over 2.5 [place] 00 hours For adult patients only: Round to nearest 250 mg per Medical Staff approval MEDICATION WASTE Product Size: 1000 mg Product Wasted: _0__ mg Vancomycin 2020-0 No 2001 mg: Me moria 6-10 infuse l 17:00: over 2.5 [place] 00 hours For adult patients only: Round to nearest 250 mg per Medical Staff approval MEDICATION WASTE Product Size: 1000 mg Product Wasted: _0__ mg Vancomycin 2020-0 No 2001 mg: Me moria 6-10 infuse l 17:00: over 2.5 [place] 00 hours For adult patients only: Round to nearest 250 mg per Medical Staff approval MEDICATION WASTE Product Size: 1000 mg Product Wasted: _0__ mg Vancomycin 2020-0 No 2001 mg: Me moria 6-10 infuse l 17:00: over 2.5 [place] 00 hours For adult patients only: Round to nearest 250 mg per Medical Staff approval MEDICATION WASTE Product Size: 1000 mg Product Wasted: _0__ mg Vancomycin 2020-0 No 2001 mg: Me moria 6-10 infuse l 17:00: over 2.5 [place] 00 hours For adult patients only: Round to nearest 250 mg per Medical Staff approval MEDICATION WASTE Product Size: 1000 mg Product Wasted: _0__ mg Vancomycin 2020-0 No 2001 mg: Me moria 6-10 infuse l 17:00: over 2.5 [place] 00 hours For adult patients only: Round to nearest 250 mg per Medical Staff approval MEDICATION WASTE Product Size: 1000 mg Product Wasted: _0__ mg Vancomycin 2020-0 No 2001 mg: Me moria 6-10 infuse l 17:00: over 2.5 [place] 00 hours For adult patients only: Round to nearest 250 mg per Medical Staff approval MEDICATION WASTE Product Size: 1000 mg Product Wasted: _0__ mg Vancomycin 2020-0 No 2001 mg: Me moria 6-10 infuse l 17:00: over 2.5 [place] 00 hours For adult patients only: Round to nearest 250 mg per Medical Staff approval MEDICATION WASTE Product Size: 1000 mg Product Wasted: _0__ mg Vancomycin 2020-0 No 2000 mg: Me moria 6-10 infuse l 17:00: over 2.5 [place] 00 hours For adult patients only: Round to nearest 250 mg per Medical Staff approval MEDICATION WASTE Product Size: 1000 mg Product Wasted: _0__ mg Vancomycin 2019-0 No 2000 mg: Me moria 6-10 infuse l 17:00: over 2.5 [place] 00 hours For adult patients only: Round to nearest 250 mg per Medical Staff approval MEDICATION WASTE Product Size: 1000 mg Product Wasted: _0__ mg Vancomycin 2019-0 No 2000 mg: Me moria 6-10 infuse l 17:00: over 2.5 [place] 00 hours For adult patients only: Round to nearest 250 mg per Medical Staff approval MEDICATION WASTE Product Size: 1000 mg Product Wasted: _0__ mg Vancomycin 2019-0 No 2000 mg: Me moria 6-10 infuse l 17:00: over 2.5 [place] 00 hours For adult patients only: Round to nearest 250 mg per Medical Staff approval MEDICATION WASTE Product Size: 1000 mg Product Wasted: _0__ mg insulin, No Notes: Memoria isophane 6-10 (Same as: l 14:00: Humulin N) Brian 00 Roll in palms of hands gently; Do not shake vigorously . WASTE: F/P - Black; E - Municipal Trash Bin Stable for 31 days at room temperatur e Expires in days from ____Date heparin No Notes: Memoria 6-10 porcine l 14:00: heparin Brian 00 insulin, 2019-0 No Notes: Memoria isophane 6-10 (Same as: l 14:00: Humulin N) [place] 00 Roll in palms of hands gently; Do not shake vigorously . WASTE: F/P - Black; E - Municipal Trash Bin Stable for 31 days at room temperatur e Expires in days from ____Date heparin No Notes: Memoria 6-10 porcine l 14:00: heparin Brian 00 insulin, No Notes: Memoria isophane 6-10 (Same as: l 14:00: Humulin N) [place] 00 Roll in palms of hands gently; Do not shake vigorously . WASTE: F/P - Black; E - [facility] Stable for 31 days at room temperatur e Expires in days from ____Date heparin No Notes: Memoria 6-10 porcine l 14:00: heparin Brian 00 insulin, No Notes: Memoria isophane 6-10 (Same as: l 14:00: Humulin N) [place] 00 Roll in palms of hands gently; Do not shake vigorously . WASTE: F/P - Black; E - [facility] Stable for 31 days at room temperatur e Expires in days from ____Date heparin No Notes: Memoria 6-10 porcine l 14:00: heparin Brian 00 insulin, No Notes: Memoria isophane 6-10 (Same as: l 14:00: Humulin N) [place] 00 Roll in palms of hands gently; Do not shake vigorously . WASTE: F/P - Black; E - [facility] Stable for 31 days at room temperatur e Expires in days from ____Date heparin No Notes: Memoria 6-10 porcine l 14:00: heparin [place] 00 insulin, No Notes: Memoria isophane 6-10 (Same as: l 14:00: Humulin N) [place] 00 Roll in palms of hands gently; Do not shake vigorously . WASTE: F/P - Black; E - [facility] Stable for 31 days at room temperatur e Expires in days from ____Date heparin No Notes: Memoria 6-10 porcine l 14:00: heparin [place] 00 insulin, No Notes: Memoria isophane 6-10 (Same as: l 14:00: Humulin N) Brian 00 Roll in palms of hands gently; Do not shake vigorously . WASTE: F/P - Black; E - [facility] Stable for 31 days at room temperatur e Expires in days from ____Date heparin No Notes: Memoria 6-10 porcine l 14:00: heparin [place] 00 insulin, No Notes: Memoria isophane 6-10 (Same as: l 14:00: Humulin N) [place] 00 Roll in palms of hands gently; Do not shake vigorously . WASTE: F/P - Black; E - [facility] Stable for 31 days at room temperatur e Expires in days from ____Date heparin No Notes: Memoria 6-10 porcine l 14:00: heparin Brian 00 insulin, No Notes: Memoria isophane 6-10 (Same as: l 14:00: Humulin N) [place] 00 Roll in palms of hands gently; Do not shake vigorously . WASTE: F/P - Black; E - [facility] Stable for 31 days at room temperatur e Expires in days from ____Date heparin No Notes: Memoria 6-10 porcine l 14:00: heparin Brian 00 insulin, No Notes: Memoria isophane 6-10 (Same as: l 14:00: Humulin N) [place] 00 Roll in palms of hands gently; Do not shake vigorously . WASTE: F/P - Black; E - [facility] Stable for 31 days at room temperatur e Expires in days from ____Date heparin No Notes: Memoria 6-10 porcine l 14:00: heparin [place] 00 insulin, No Notes: Memoria isophane 6-10 (Same as: l 14:00: Humulin N) [place] 00 Roll in palms of hands gently; Do not shake vigorously . WASTE: F/P - Black; E - [facility] Stable for 31 days at room temperatur e Expires in days from ____Date heparin No Notes: Memoria 6-10 porcine l 14:00: heparin insulin, No Notes: Memoria isophane 6-10 (Same as: l 14:00: Humulin N) Roll in palms of hands gently; Do not shake vigorously . WASTE: F/P - Black; E - [facility] Stable for 31 days at room temperatur e Expires in days from ____Date heparin No Notes: Memoria 6-10 porcine l 14:00: heparin Vancomycin 2019-0 No 1.5 gm, Jacinto margarita 6-10 Route: IV, l 13:00: Q8H, Dosing Weight 96.364, kg, Start date: 12/06/19 8:00:00 CDT, Duration: 10 day, Stop date: 12/16/19 0:00:00 CDT, ABX Indication : Skin/Soft Tissue Infection Vancomycin 2019-0 No 1.5 gm, Jacinto margarita 6-10 Route: IV, l 13:00: Q8H, Dosing Weight 96.364, kg, Start date: 12/06/19 8:00:00 CDT, Duration: 10 day, Stop date: 12/16/19 0:00:00 CDT, ABX Indication : Skin/Soft Tissue Infection Vancomycin 2019-0 No 1.5 gm, Jacinto margarita 6-10 Route: IV, l 13:00: Q8H, Dosing Weight 96.364, kg, Start date: 12/06/19 8:00:00 CDT, Duration: 10 day, Stop date: 12/16/19 0:00:00 CDT, ABX Indication : Skin/Soft Tissue Infection Vancomycin 2019-0 No 1.5 gm, Jacinto margarita 6-10 Route: IV, l 13:00: Q8H, Dosing Weight 96.364, kg, Start date: 12/06/19 8:00:00 CDT, Duration: 10 day, Stop date: 12/16/19 0:00:00 CDT, ABX Indication : Skin/Soft Tissue Infection Vancomycin 2020-0 No 1.5 gm, Jacinto margarita 6-10 Route: IV, l 13:00: Q8H, Dosing Weight 96.364, kg, Start date: 12/06/19 8:00:00 CDT, Duration: 10 day, Stop date: 12/16/19 0:00:00 CDT, ABX Indication : Skin/Soft Tissue Infection Vancomycin 2020-0 No 1.5 gm, Jacinto margarita 6-10 Route: IV, l 13:00: Q8H, Dosing Weight 96.364, kg, Start date: 12/06/19 8:00:00 CDT, Duration: 10 day, Stop date: 12/16/19 0:00:00 CDT, ABX Indication : Skin/Soft Tissue Infection Vancomycin 2020-0 No 1.5 gm, Jacinto margarita 6-10 Route: IV, l 13:00: Q8H, Dosing Weight 96.364, kg, Start date: 12/06/19 8:00:00 CDT, Duration: 10 day, Stop date: 12/16/19 0:00:00 CDT, ABX Indication : Skin/Soft Tissue Infection Vancomycin 2020-0 No 1.5 gm, Jacinto margarita 6-10 Route: IV, l 13:00: Q8H, Dosing Weight 96.364, kg, Start date: 12/06/19 8:00:00 CDT, Duration: 10 day, Stop date: 12/16/19 0:00:00 CDT, ABX Indication : Skin/Soft Tissue Infection Vancomycin 2020-0 No 1.5 gm, Jacinto margarita 6-10 Route: IV, l 13:00: Q8H, Dosing Weight 96.364, kg, Start date: 12/06/19 8:00:00 CDT, Duration: 10 day, Stop date: 12/16/19 0:00:00 CDT, ABX Indication : Skin/Soft Tissue Infection Vancomycin 2020-0 No 1.5 gm, Jacinto margarita 6-10 Route: IV, l 13:00: Q8H, Brian 00 Dosing Weight 96.364, kg, Start date: 12/06/19 8:00:00 CDT, Duration: 10 day, Stop date: 12/16/19 0:00:00 CDT, ABX Indication : Skin/Soft Tissue Infection Vancomycin 2020-0 No 1.5 gm, Jacinto margarita 6-10 Route: IV, l 13:00: Q8H, Dosing Weight 96.364, kg, Start date: 12/06/19 8:00:00 CDT, Duration: 10 day, Stop date: 12/16/19 0:00:00 CDT, ABX Indication : Skin/Soft Tissue Infection Vancomycin 2020-0 No 1.5 gm, Jacinto margarita 6-10 Route: IV, l 13:00: Q8H, Dosing Weight 96.364, kg, Start date: 12/06/19 8:00:00 CDT, Duration: 10 day, Stop date: 12/16/19 0:00:00 CDT, ABX Indication : Skin/Soft Tissue Infection Ondansetron 2020-0 No Notes: Jacinto margarita 6-10 (Same as: l 08:42: Zofran) [place] 00 MEDICATION WASTE Product Size: 4 mg Product Wasted: _0__ mg Ondansetron 2020-0 No Notes: Jacinto margarita 6-10 (Same as: l 08:42: Zofran) [place] 00 MEDICATION WASTE Product Size: 4 mg Product Wasted: _0__ mg Ondansetron 2020-0 No Notes: Jacinto margarita 6-10 (Same as: l 08:42: Zofran) [place] 00 MEDICATION WASTE Product Size: 4 mg Product Wasted: _0__ mg Ondansetron 2020-0 No Notes: Jacinto margarita 6-10 (Same as: l 08:42: Zofran) [place] 00 MEDICATION WASTE Product Size: 4 mg Product Wasted: _0__ mg Ondansetron 2020-0 No Notes: Jacinto margarita 6-10 (Same as: l 08:42: Zofran) [place] 00 MEDICATION WASTE Product Size: 4 mg Product Wasted: _0__ mg Ondansetron 2020-0 No Notes: Jacinto margarita 6-10 (Same as: l 08:42: Zoan) [place] 00 MEDICATION WASTE Product Size: 4 mg Product Wasted: _0__ mg Ondansetron 2020-0 No Notes: Jacinto margarita 6-10 (Same as: l 08:42: Zoan) [place] 00 MEDICATION WASTE Product Size: 4 mg Product Wasted: _0__ mg Ondansetron 2020-0 No Notes: Jacinto margarita 6-10 (Same as: l 08:42: Zoan) [place] 00 MEDICATION WASTE Product Size: 4 mg Product Wasted: _0__ mg Ondansetron 2020-0 No Notes: Jacinto margarita 6-10 (Same as: l 08:42: Zoan) [place] 00 MEDICATION WASTE Product Size: 4 mg Product Wasted: _0__ mg Ondansetron 2020-0 No Notes: Jacinto margarita 6-10 (Same as: l 08:42: Zofran) [place] 00 MEDICATION WASTE Product Size: 4 mg Product Wasted: _0__ mg Ondansetron 2020-0 No Notes: Jacinto margarita 6-10 (Same as: l 08:42: Zoan) [place] 00 MEDICATION WASTE Product Size: 4 mg Product Wasted: _0__ mg Ondansetron 2020-0 No Notes: Jacinto margarita 6-10 (Same as: 08:42: Zoan) [place] 00 MEDICATION WASTE Product Size: 4 mg Product Wasted: _0__ mg normal 2020-0 No 1,000 mL, Memori a saline 0.9% 6-10 Rate: 125 l IV 1,000 mL 08:40: ml/hr, Rosie garcia Infuse over: 8 hr, Route: IV, Dosing Weight 96.364 kg, Total Volume: 1,000, Start date: 12/06/19 3:40:00 CDT, Duration: 30 day, Stop date: 01/05/20 3:39:00 CDT, 2.1, m2, 0 Acetaminoph 2020-0 No Notes: Do M emoria en 325 MG / 6-10 not exceed l Hydrocodone 08:40: 4gm/day of [place] Bitartrate 00 acetaminop 10 MG Oral hen. (Same Tablet as: Lerona [Lerona 325/10) 10325] Morphine No Notes: Memoria 6-10 (Same l 08:40: as:MORPhin [place] 00 e Sulfate) normal 2020-0 No 1,000 mL, Memori a saline 0.9% 6-10 Rate: 125 l IV 1,000 mL 08:40: ml/hr, Herm sarah 00 Infuse over: 8 hr, Route: IV, Dosing Weight 96.364 kg, Total Volume: 1,000, Start date: 12/06/19 3:40:00 CDT, Duration: 30 day, Stop date: 01/05/20 3:39:00 CDT, 2.1, m2, 0 Acetaminoph No Notes: Do M emoria en 325 MG / 6-10 not exceed l Hydrocodone 08:40: 4gm/day of [place] Bitartrate 00 acetaminop 10 MG Oral hen. (Same Tablet as: Lerona [Lerona 325/10) ] Morphine No Notes: Memoria 6-10 (Same l 08:40: as:MORPhin [place] 00 e Sulfate) normal 2020-0 No 1,000 mL, Memori a saline 0.9% 6-10 Rate: 125 l IV 1,000 mL 08:40: ml/hr, Herm sarah 00 Infuse over: 8 hr, Route: IV, Dosing Weight 96.364 kg, Total Volume: 1,000, Start date: 12/06/19 3:40:00 CDT, Duration: 30 day, Stop date: 01/05/20 3:39:00 CDT, 2.1, m2, 0 Acetaminoph 0 No Notes: Do M emoria en 325 MG / 6-10 not exceed l Hydrocodone 08:40: 4gm/day of [place] Bitartrate 00 acetaminop 10 MG Oral hen. (Same Tablet as: Lerona [Lerona 325/10) 10325] Morphine 0 No Notes: Memoria 6-10 (Same l 08:40: as:MORPhin [place] 00 e Sulfate) normal 2020-0 No 1,000 mL, Memori a saline 0.9% 6-10 Rate: 125 l IV 1,000 mL 08:40: ml/hr, Herm sarah 00 Infuse over: 8 hr, Route: IV, Dosing Weight 96.364 kg, Total Volume: 1,000, Start date: 12/06/19 3:40:00 CDT, Duration: 30 day, Stop date: 01/05/20 3:39:00 CDT, 2.1, m2, 0 Acetaminoph 2020-0 No Notes: Do M emoria en 325 MG / 6-10 not exceed l Hydrocodone 08:40: 4gm/day of [place] Bitartrate 00 acetaminop 10 MG Oral hen. (Same Tablet as: Lerona [Lerona 325/10) 10/325] Morphine 2020-0 No Notes: Memoria 6-10 (Same l 08:40: as:MORPhin [place] 00 e Sulfate) normal 2020-0 No 1,000 mL, Memori a saline 0.9% 6-10 Rate: 125 l IV 1,000 mL 08:40: ml/hr, Herm sarah 00 Infuse over: 8 hr, Route: IV, Dosing Weight 96.364 kg, Total Volume: 1,000, Start date: 12/06/19 3:40:00 CDT, Duration: 30 day, Stop date: 01/05/20 3:39:00 CDT, 2.1, m2, 0 Acetaminoph 2020-0 No Notes: Do M emoria en 325 MG / 6-10 not exceed l Hydrocodone 08:40: 4gm/day of [place] Bitartrate 00 acetaminop 10 MG Oral hen. (Same Tablet as: Lerona [Lerona 325/10) 10/325] Morphine 2020-0 No Notes: Memoria 6-10 (Same l 08:40: as:MORPhin [place] 00 e Sulfate) normal 2020-0 No 1,000 mL, Memori a saline 0.9% 6-10 Rate: 125 l IV 1,000 mL 08:40: ml/hr, Herm sarah 00 Infuse over: 8 hr, Route: IV, Dosing Weight 96.364 kg, Total Volume: 1,000, Start date: 12/06/19 3:40:00 CDT, Duration: 30 day, Stop date: 01/05/20 3:39:00 CDT, 2.1, m2, 0 Acetaminoph 2020-0 No Notes: Do M emoria en 325 MG / 6-10 not exceed l Hydrocodone 08:40: 4gm/day of [place] Bitartrate 00 acetaminop 10 MG Oral hen. (Same Tablet as: Lerona [Lerona 325/10) 10325] Morphine 0 No Notes: Memoria 6-10 (Same l 08:40: as:MORPhin [place] 00 e Sulfate) normal 2020-0 No 1,000 mL, Memori a saline 0.9% 6-10 Rate: 125 l IV 1,000 mL 08:40: ml/hr, Herm sarah 00 Infuse over: 8 hr, Route: IV, Dosing Weight 96.364 kg, Total Volume: 1,000, Start date: 12/06/19 3:40:00 CDT, Duration: 30 day, Stop date: 01/05/20 3:39:00 CDT, 2.1, m2, 0 Acetaminoph 2020-0 No Notes: Do M emoria en 325 MG / 6-10 not exceed l Hydrocodone 08:40: 4gm/day of [place] Bitartrate 00 acetaminop 10 MG Oral hen. (Same Tablet as: Lerona [Lerona 325/10) 325] Morphine 0 No Notes: Memoria 6-10 (Same l 08:40: as:MORPhin [place] 00 e Sulfate) normal 2020-0 No 1,000 mL, Memori a saline 0.9% 6-10 Rate: 125 l IV 1,000 mL 08:40: ml/hr, Herm sarah 00 Infuse over: 8 hr, Route: IV, Dosing Weight 96.364 kg, Total Volume: 1,000, Start date: 12/06/19 3:40:00 CDT, Duration: 30 day, Stop date: 01/05/20 3:39:00 CDT, 2.1, m2, 0 Acetaminoph 2020-0 No Notes: Do M emoria en 325 MG / 6-10 not exceed l Hydrocodone 08:40: 4gm/day of [place] Bitartrate 00 acetaminop 10 MG Oral hen. (Same Tablet as: Lerona [Lerona 325/10) 10325] Morphine 2020-0 No Notes: Memoria 6-10 (Same l 08:40: as:MORPhin [place] 00 e Sulfate) normal 2020-0 No 1,000 mL, Memori a saline 0.9% 6-10 Rate: 125 l IV 1,000 mL 08:40: ml/hr, Herm sarah 00 Infuse over: 8 hr, Route: IV, Dosing Weight 96.364 kg, Total Volume: 1,000, Start date: 12/06/19 3:40:00 CDT, Duration: 30 day, Stop date: 01/05/20 3:39:00 CDT, 2.1, m2, 0 Acetaminoph 2020-0 No Notes: Do M emoria en 325 MG / 6-10 not exceed l Hydrocodone 08:40: 4gm/day of [place] Bitartrate 00 acetaminop 10 MG Oral hen. (Same Tablet as: Lerona [Lerona 325/10) ] Morphine 2019-0 No Notes: Memoria 6-10 (Same l 08:40: as:MORPhin [place] 00 e Sulfate) normal 2020-0 No 1,000 mL, Memori a saline 0.9% 6-10 Rate: 125 l IV 1,000 mL 08:40: ml/hr, Herm sarah 00 Infuse over: 8 hr, Route: IV, Dosing Weight 96.364 kg, Total Volume: 1,000, Start date: 12/06/19 3:40:00 CDT, Duration: 30 day, Stop date: 01/05/20 3:39:00 CDT, 2.1, m2, 0 Acetaminoph 2020-0 No Notes: Do M emoria en 325 MG / 6-10 not exceed l Hydrocodone 08:40: 4gm/day of [place] Bitartrate 00 acetaminop 10 MG Oral hen. (Same Tablet as: Lerona [Lerona 325/10) 10325] Morphine 2020-0 No Notes: Memoria 6-10 (Same l 08:40: as:MORPhin [place] 00 e Sulfate) normal 2020-0 No 1,000 mL, Memori a saline 0.9% 6-10 Rate: 125 l IV 1,000 mL 08:40: ml/hr, Herm sarah 00 Infuse over: 8 hr, Route: IV, Dosing Weight 96.364 kg, Total Volume: 1,000, Start date: 12/06/19 3:40:00 CDT, Duration: 30 day, Stop date: 01/05/20 3:39:00 CDT, 2.1, m2, 0 Acetaminoph 2020-0 No Notes: Do M emoria en 325 MG / 6-10 not exceed l Hydrocodone 08:40: 4gm/day of [place] Bitartrate 00 acetaminop 10 MG Oral hen. (Same Tablet as: Lerona [Lerona 325/10) 10325] Morphine 2020-0 No Notes: Memoria 6-10 (Same l 08:40: as:MORPhin [place] 00 e Sulfate) normal 2020-0 No 1,000 mL, Memori a saline 0.9% 6-10 Rate: 125 l IV 1,000 mL 08:40: ml/hr, Herm sarah 00 Infuse over: 8 hr, Route: IV, Dosing Weight 96.364 kg, Total Volume: 1,000, Start date: 12/06/19 3:40:00 CDT, Duration: 30 day, Stop date: 01/05/20 3:39:00 CDT, 2.1, m2, 0 Acetaminoph 2020-0 No Notes: Do M emoria en 325 MG / 6-10 not exceed l Hydrocodone 08:40: 4gm/day of [place] Bitartrate 00 acetaminop 10 MG Oral hen. (Same Tablet as: Lerona [Lerona 325/10) 325] Morphine 2020-0 No Notes: Memoria 6-10 (Same l 08:40: as:MORPhin [place] 00 e Sulfate) Acetaminoph 2020-0 No Notes: Do M emoria en 6-10 not exceed l 08:38: 4 gm/day. Brian 00 (Same as: Tylenol) Acetaminoph 2020-0 No Notes: Do M emoria en 6-10 not exceed l 08:38: 4 gm/day. [place] 00 (Same as: Tylenol) Acetaminoph 2020-0 No Notes: Do M emoria en 6-10 not exceed l 08:38: 4 gm/day. [place] 00 (Same as: Tylenol) Acetaminoph 2020-0 No Notes: Do M emoria en 6-10 not exceed l 08:38: 4 gm/day. (Same as: Tylenol) Acetaminoph 0 No Notes: Do M emoria en 6-10 not exceed l 08:38: 4 gm/day. (Same as: Tylenol) Acetaminoph No Notes: Do M emoria en 6-10 not exceed l 08:38: 4 gm/day. (Same as: Tylenol) Acetaminoph No Notes: Do M emoria en 6-10 not exceed l 08:38: 4 gm/day. (Same as: Tylenol) Acetaminoph No Notes: Do M emoria en 6-10 not exceed l 08:38: 4 gm/day. (Same as: Tylenol) Acetaminoph No Notes: Do M emoria en 6-10 not exceed l 08:38: 4 gm/day. (Same as: Tylenol) Acetaminoph No Notes: Do M emoria en 6-10 not exceed l 08:38: 4 gm/day. (Same as: Tylenol) Acetaminoph No Notes: Do M emoria en 6-10 not exceed l 08:38: 4 gm/day. (Same as: Tylenol) Acetaminoph No Notes: Do M emoria en 6-10 not exceed l 08:38: 4 gm/day. (Same as: Tylenol) Dextrose 2019-0 No 12.5 gm, Memor ia 50% Syringe 6-10 25 mL, l (D50W) 08:33: Route: IVP, Drug Form: INJ, Dosing Weight 96.364, kg, PRN, PRN Blood Glucose Results, Start date: 12/06/19 3:33:00 CDT, Duration: 30 day, Stop date: 01/05/20 3:32:00 CDT, 0 Glucagon No 1 mg, Memoria 6-10 Route: IM, l 08:33: Drug form: PDR/INJ, PRN, Dosing Weight 96.364, kg, PRN Blood Glucose Results, Start date: 12/06/19 3:33:00 CDT, Duration: 30 day, Stop date: 01/05/20 3:32:00 CDT, 0 Insulin 2020-0 No Notes: Memoria Lispro 6-10 (Same as: l 08:33: Humalog) [place] 00 Roll in palms of hands gently; Do not shake vigorously . WASTE: F/P - Black; E - [facility] Trash [facility] Stable for 28 days at room temperatur e. Expires in days from ____Date Dextrose 2020-0 No 12.5 gm, Memor ia 50% Syringe 6-10 25 mL, l (D50W) 08:33: Route: [place] 00 IVP, Drug Form: INJ, Dosing Weight 96.364, kg, PRN, PRN Blood Glucose Results, Start date: 12/06/19 3:33:00 CDT, Duration: 30 day, Stop date: 01/05/20 3:32:00 CDT, 0 Glucagon 2020-0 No 1 mg, Memoria 6-10 Route: IM, l 08:33: Drug form: Brian 00 PDR/INJ, PRN, Dosing Weight 96.364, kg, PRN Blood Glucose Results, Start date: 12/06/19 3:33:00 CDT, Duration: 30 day, Stop date: 01/05/20 3:32:00 CDT, 0 Insulin 2020-0 No Notes: Memoria Lispro 6-10 (Same as: l 08:33: Humalog) [place] 00 Roll in palms of hands gently; Do not shake vigorously . WASTE: F/P - Black; E - [facility] Trash [facility] Stable for 28 days at room temperatur e. Expires in days from ____Date Dextrose 2020-0 No 12.5 gm, Memor ia 50% Syringe 6-10 25 mL, l (D50W) 08:33: Route: Brian 00 IVP, Drug Form: INJ, Dosing Weight 96.364, kg, PRN, PRN Blood Glucose Results, Start date: 12/06/19 3:33:00 CDT, Duration: 30 day, Stop date: 01/05/20 3:32:00 CDT, 0 Glucagon 2020-0 No 1 mg, Memoria 6-10 Route: IM, l 08:33: Drug form: [place] 00 PDR/INJ, PRN, Dosing Weight 96.364, kg, PRN Blood Glucose Results, Start date: 12/06/19 3:33:00 CDT, Duration: 30 day, Stop date: 01/05/20 3:32:00 CDT, 0 Insulin 2020-0 No Notes: Memoria Lispro 6-10 (Same as: l 08:33: Humalog) [place] 00 Roll in palms of hands gently; Do not shake vigorously . WASTE: F/P - Black; E - [facility] Trash [facility] Stable for 28 days at room temperatur e. Expires in days from ____Date Dextrose 2020-0 No 12.5 gm, Memor ia 50% Syringe 6-10 25 mL, l (D50W) 08:33: Route: Brian 00 IVP, Drug Form: INJ, Dosing Weight 96.364, kg, PRN, PRN Blood Glucose Results, Start date: 12/06/19 3:33:00 CDT, Duration: 30 day, Stop date: 01/05/20 3:32:00 CDT, 0 Glucagon 2020-0 No 1 mg, Memoria 6-10 Route: IM, l 08:33: Drug form: [place] 00 PDR/INJ, PRN, Dosing Weight 96.364, kg, PRN Blood Glucose Results, Start date: 12/06/19 3:33:00 CDT, Duration: 30 day, Stop date: 01/05/20 3:32:00 CDT, 0 Insulin 2020-0 No Notes: Memoria Lispro 6-10 (Same as: l 08:33: Humalog) Brian 00 Roll in palms of hands gently; Do not shake vigorously . WASTE: F/P - Black; E - [facility] Trash [facility] Stable for 28 days at room temperatur e. Expires in days from ____Date Dextrose 2020-0 No 12.5 gm, Memor ia 50% Syringe 6-10 25 mL, l (D50W) 08:33: Route: [place] 00 IVP, Drug Form: INJ, Dosing Weight 96.364, kg, PRN, PRN Blood Glucose Results, Start date: 12/06/19 3:33:00 CDT, Duration: 30 day, Stop date: 01/05/20 3:32:00 CDT, 0 Glucagon 2020-0 No 1 mg, Memoria 6-10 Route: IM, l 08:33: Drug form: [place] 00 PDR/INJ, PRN, Dosing Weight 96.364, kg, PRN Blood Glucose Results, Start date: 12/06/19 3:33:00 CDT, Duration: 30 day, Stop date: 01/05/20 3:32:00 CDT, 0 Insulin 2020-0 No Notes: Memoria Lispro 6-10 (Same as: l 08:33: Humalog) Brian 00 Roll in palms of hands gently; Do not shake vigorously . WASTE: F/P - Black; E - [facility] Trash Bin Stable for 28 days at room temperatur e. Expires in days from ____Date Dextrose 2020-0 No 12.5 gm, Memor ia 50% Syringe 6-10 25 mL, l (D50W) 08:33: Route: Brian 00 IVP, Drug Form: INJ, Dosing Weight 96.364, kg, PRN, PRN Blood Glucose Results, Start date: 12/06/19 3:33:00 CDT, Duration: 30 day, Stop date: 01/05/20 3:32:00 CDT, 0 Glucagon 2020-0 No 1 mg, Memoria 6-10 Route: IM, l 08:33: Drug form: Brian 00 PDR/INJ, PRN, Dosing Weight 96.364, kg, PRN Blood Glucose Results, Start date: 12/06/19 3:33:00 CDT, Duration: 30 day, Stop date: 01/05/20 3:32:00 CDT, 0 Insulin 2020-0 No Notes: Memoria Lispro 6-10 (Same as: l 08:33: Humalog) [place] 00 Roll in palms of hands gently; Do not shake vigorously . WASTE: F/P - Black; E - [facility] Trash Bin Stable for 28 days at room temperatur e. Expires in days from ____Date Dextrose 2020-0 No 12.5 gm, Memor ia 50% Syringe 6-10 25 mL, l (D50W) 08:33: Route: [place] 00 IVP, Drug Form: INJ, Dosing Weight 96.364, kg, PRN, PRN Blood Glucose Results, Start date: 12/06/19 3:33:00 CDT, Duration: 30 day, Stop date: 01/05/20 3:32:00 CDT, 0 Glucagon 2020-0 No 1 mg, Memoria 6-10 Route: IM, l 08:33: Drug form: [place] 00 PDR/INJ, PRN, Dosing Weight 96.364, kg, [...] 6-10 25 mL, l (D50W) 08:33: Route: Brian 00 IVP, Drug Form: INJ, Dosing Weight 96.364, kg, PRN, PRN Blood Glucose Results, Start date: 12/06/19 3:33:00 CDT, Duration: 30 day, Stop date: 01/05/20 3:32:00 CDT, 0 Glucagon 2020-0 No 1 mg, Memoria 6-10 Route: IM, l 08:33: Drug form: [place] 00 PDR/INJ, PRN, Dosing Weight 96.364, kg, PRN Blood Glucose Results, Start date: 12/06/19 3:33:00 CDT, Duration: 30 day, Stop date: 01/05/20 3:32:00 CDT, 0 Insulin 2020-0 No Notes: Memoria Lispro 6-10 (Same as: l 08:33: Humalog) [place] 00 Roll in palms of hands gently; Do not shake vigorously . WASTE: F/P - Black; E - [facility] Trash Bin Stable for 28 days at room temperatur e. Expires in days from ____Date Dextrose 2020-0 No 12.5 gm, Memor ia 50% Syringe 6-10 25 mL, l (D50W) 08:33: Route: [place] 00 IVP, Drug Form: INJ, Dosing Weight 96.364, kg, PRN, PRN Blood Glucose Results, Start date: 12/06/19 3:33:00 CDT, Duration: 30 day, Stop date: 01/05/20 3:32:00 CDT, 0 Glucagon 2020-0 No 1 mg, Memoria 6-10 Route: IM, l 08:33: Drug form: [place] 00 PDR/INJ, PRN, Dosing Weight 96.364, kg, PRN Blood Glucose Results, Start date: 12/06/19 3:33:00 CDT, Duration: 30 day, Stop date: 01/05/20 3:32:00 CDT, 0 Insulin 2020-0 No Notes: Memoria Lispro 6-10 (Same as: l 08:33: Humalog) [place] 00 Roll in palms of hands gently; Do not shake vigorously . WASTE: F/P - Black; E - [facility] Trash Bin Stable for 28 days at room temperatur e. Expires in days from ____Date Dextrose 2020-0 No 12.5 gm, Memor ia 50% Syringe 6-10 25 mL, l (D50W) 08:33: Route: Brian 00 IVP, Drug Form: INJ, Dosing Weight 96.364, kg, PRN, PRN Blood Glucose Results, Start date: 12/06/19 3:33:00 CDT, Duration: 30 day, Stop date: 01/05/20 3:32:00 CDT, 0 Glucagon 2020-0 No 1 mg, Memoria 6-10 Route: IM, l 08:33: Drug form: Brian 00 PDR/INJ, PRN, Dosing Weight 96.364, kg, PRN Blood Glucose Results, Start date: 12/06/19 3:33:00 CDT, Duration: 30 day, Stop date: 01/05/20 3:32:00 CDT, 0 Insulin 2020-0 No Notes: Memoria Lispro 6-10 (Same as: l 08:33: Humalog) Brian 00 Roll in palms of [...] 6-10 25 mL, l (D50W) 08:33: Route: Brian 00 IVP, Drug Form: INJ, [...] day, Stop date: 01/05/20 3:24:00 CDT Ondansetron 2020-0 No Notes: Jacinto margarita 6-10 (Same as: l 08:25: Zofran) MEDICATION WASTE Product Size: 4 mg Product Wasted: ___ mg Acetaminoph 2020-0 No Notes: Do M emoria en 6-10 not exceed l 08:25: 4 gm/day. (Same as: Tylenol) Dextrose 2020-0 No 25 mL, Memoria 50% Syringe 6-10 Route: l (D50W) 08:25: IVP, [place] 00 Dosing Weight 96.364, kg, PRN, PRN Blood Glucose Results, Start date: 12/06/19 3:25:00 CDT, Duration: 30 day, Stop date: 01/05/20 3:24:00 CDT Glucagon 2020-0 No 1 mg, Memoria 6-10 Route: IM, l 08:25: PRN, Brian 00 Dosing Weight 96.364, kg, PRN Blood Glucose Results, Start date: 12/06/19 3:25:00 CDT, Duration: 30 day, Stop date: 01/05/20 3:24:00 CDT Ondansetron 2020-0 No Notes: Jacinto margarita 6-10 (Same as: l 08:25: Zofran) MEDICATION WASTE Product Size: 4 mg Product Wasted: ___ mg Acetaminoph 2020-0 No Notes: Do M emoria en 6-10 not exceed l 08:25: 4 gm/day. (Same as: Tylenol) Dextrose 2020-0 No 25 mL, Memoria 50% Syringe 6-10 Route: l (D50W) 08:25: IVP, [place] 00 Dosing Weight 96.364, kg, PRN, PRN Blood Glucose Results, Start date: 12/06/19 3:25:00 CDT, Duration: 30 day, Stop date: 01/05/20 3:24:00 CDT Glucagon 2020-0 No 1 mg, Memoria 6-10 Route: IM, l 08:25: PRN, Dosing Weight 96.364, kg, PRN Blood Glucose Results, Start date: 12/06/19 3:25:00 CDT, Duration: 30 day, Stop date: 01/05/20 3:24:00 CDT Ondansetron 2020-0 No Notes: Jacinto margarita 6-10 (Same as: l 08:25: Zofran) MEDICATION WASTE Product Size: 4 mg Product Wasted: ___ mg Acetaminoph 2020-0 No Notes: Do M emoria en 6-10 not exceed l 08:25: 4 gm/day. (Same as: Tylenol) Dextrose 2020-0 No 25 mL, Memoria 50% [...] day, Stop date: 01/05/20 3:24:00 CDT Ondansetron 2020-0 No Notes: Jacinto margarita 6-10 (Same as: l 08:25: Zofran) MEDICATION WASTE Product Size: 4 mg Product Wasted: ___ mg Acetaminoph 2020-0 No Notes: Do M emoria en 6-10 not exceed l 08:25: 4 gm/day. (Same as: Tylenol) Dextrose 2020-0 No 25 mL, Memoria 50% [...] day, Stop date: 01/05/20 3:24:00 CDT Ondansetron 2020-0 No Notes: Jacinto margarita 6-10 (Same as: l 08:25: Zofran) MEDICATION WASTE Product Size: 4 mg Product Wasted: ___ mg Acetaminoph 2020-0 No Notes: Do M emoria en 6-10 not exceed l 08:25: 4 gm/day. (Same as: Tylenol) Dextrose 2020-0 No 25 mL, Memoria 50% [...] day, Stop date: 01/05/20 3:24:00 CDT Ondansetron 2020-0 No Notes: Jacinto margarita 6-10 (Same as: l 08:25: Zofran) MEDICATION WASTE Product Size: 4 mg Product Wasted: ___ mg Acetaminoph 2020-0 No Notes: Do Elaine lunaria en 6-10 not exceed l 08:25: 4 gm/day. (Same as: Tylenol) Dextrose 2020-0 No 25 mL, Memoria 50% [...] day, Stop date: 01/05/20 3:24:00 CDT Ondansetron 2020-0 No Notes: Jacinto margarita 6-10 (Same as: l 08:25: Zofran) MEDICATION WASTE Product Size: 4 mg Product Wasted: ___ mg Acetaminoph 2020-0 No Notes: Do M emoria en 6-10 not exceed l 08:25: 4 gm/day. (Same as: Tylenol) Dextrose 2020-0 No 25 mL, Memoria 50% [...] day, Stop date: 01/05/20 3:24:00 CDT Ondansetron 2020-0 No Notes: Jacinto margarita 6-10 (Same as: l 08:25: Zofran) MEDICATION WASTE Product Size: 4 mg Product Wasted: ___ mg Acetaminoph 2020-0 No Notes: Do M emoria en 6-10 not exceed l 08:25: 4 gm/day. (Same as: Tylenol) Dextrose 2020-0 No 25 mL, Memoria 50% [...] day, Stop date: 01/05/20 3:24:00 CDT Ondansetron 2020-0 No Notes: Jacinto margarita 6-10 (Same as: l 08:25: Zofran) MEDICATION WASTE Product Size: 4 mg Product Wasted: ___ mg Acetaminoph 2020-0 No Notes: Do M emoria en 6-10 not exceed l 08:25: 4 gm/day. (Same as: Tylenol) Dextrose 2020-0 No 25 mL, Memoria 50% [...] day, Stop date: 01/05/20 3:24:00 CDT Ondansetron 2020-0 No Notes: Jacinto margarita 6-10 (Same as: l 08:25: Zofran) Brian 00 MEDICATION WASTE Product Size: 4 mg Product Wasted: ___ mg Acetaminoph 2020-0 No Notes: Do M emoria en 6-10 not exceed l 08:25: 4 gm/day. (Same as: Tylenol) Dextrose 2020-0 No 25 mL, Memoria 50% [...] day, Stop date: 01/05/20 3:24:00 CDT Ondansetron 2020-0 No Notes: Jacinto margarita 6-10 (Same as: l 08:25: Zofran) MEDICATION WASTE Product Size: 4 mg Product Wasted: ___ mg Acetaminoph 2020-0 No Notes: Do M emoria en 6-10 not exceed l 08:25: 4 gm/day. (Same as: Tylenol) Dextrose 2020-0 No 25 mL, Memoria 50% [...] day, Stop date: 01/05/20 3:24:00 CDT Ondansetron 2020-0 No Notes: Jacinto margarita 6-10 (Same as: [...] 23:49:00 CDT, Stop date: 12/05/19 23:49:00 CDT Omnipaque 2020-0 No 80 mL, Memori a 350 6-10 Route: IV, l 04:49: Dosing Weight 96.364, kg, ONCE, Start date: 12/05/19 23:49:00 CDT, Stop date: 12/05/19 23:49:00 CDT Omnipaque 2020-0 No 80 mL, Memori a 350 6-10 Route: IV, l 04:49: Dosing Weight 96.364, kg, ONCE, Start date: 12/05/19 23:49:00 CDT, Stop date: 12/05/19 23:49:00 CDT Omnipaque 2020-0 No 80 mL, Memori a 350 6-10 Route: IV, l 04:49: Dosing Brian Weight 96.364, kg, ONCE, Start date: 12/05/19 23:49:00 CDT, Stop date: 12/05/19 23:49:00 CDT Omnipaque 2020-0 No 80 mL, Memori a 350 6-10 Route: IV, l 04:49: Dosing Brian 00 Weight 96.364, kg, ONCE, Start date: 12/05/19 23:49:00 CDT, Stop date: 12/05/19 23:49:00 CDT Omnipaque 2020-0 No 80 mL, Memori a 350 6-10 Route: IV, l 04:49: Dosing Brian 00 Weight 96.364, kg, ONCE, Start date: 12/05/19 23:49:00 CDT, Stop date: 12/05/19 23:49:00 CDT Omnipaque 2020-0 No 80 mL, Memori a 350 6-10 Route: IV, l 04:49: Dosing [place] Weight 96.364, kg, ONCE, Start date: 12/05/19 23:49:00 CDT, Stop date: 12/05/19 23:49:00 CDT Omnipaque 2020-0 No 80 mL, Memori a 350 6-10 Route: IV, l 04:49: Dosing Brian 00 Weight 96.364, kg, ONCE, Start date: 12/05/19 23:49:00 CDT, Stop date: 12/05/19 23:49:00 CDT Omnipaque 2020-0 No 80 mL, Memori a 350 6-10 Route: IV, l 04:49: Dosing Brian 00 Weight 96.364, kg, ONCE, Start date: 12/05/19 23:49:00 CDT, Stop date: 12/05/19 23:49:00 CDT Omnipaque 2020-0 No 80 mL, Memori a 350 6-10 Route: IV, l 04:49: Dosing Brian 00 Weight 96.364, kg, ONCE, Start date: 12/05/19 23:49:00 CDT, Stop date: 12/05/19 23:49:00 CDT Omnipaque 2020-0 No 80 mL, Memori a 350 6-10 Route: IV, l 04:49: Dosing [place] 00 Weight 96.364, kg, ONCE, Start date: 12/05/19 23:49:00 CDT, Stop date: 12/05/19 23:49:00 CDT Omnipaque 2020-0 No 80 mL, Memori a 350 6-10 Route: IV, l 04:49: Dosing [place] 00 Weight 96.364, kg, ONCE, Start date: 12/05/19 23:49:00 CDT, Stop date: 12/05/19 23:49:00 CDT Sodium 2020-0 No 1,000 mL, Memori a Chloride 6-10 Infuse l 0.9% 04:38: Over: 1 [place] (Bolus) IV 00 hr, Route: IV, ONCE, Priority: STAT, Dosing Weight 96.364 kg, Start date: 12/05/19 23:38:00 CDT, Stop date: 12/05/19 23:38:00 CDT Sodium 2020-0 No 1,000 mL, Memori a Chloride 6-10 Infuse l 0.9% 04:38: Over: 1 Brian (Bolus) IV 00 hr, Route: IV, ONCE, Priority: STAT, Dosing Weight 96.364 kg, Start date: 12/05/19 23:38:00 CDT, Stop date: 12/05/19 23:38:00 CDT Sodium 2020-0 No 1,000 mL, Memori a Chloride 6-10 Infuse l 0.9% 04:38: Over: 1 Brian (Bolus) IV 00 hr, Route: IV, ONCE, Priority: STAT, Dosing Weight 96.364 kg, Start date: 12/05/19 23:38:00 CDT, Stop date: 12/05/19 23:38:00 CDT Sodium 2020-0 No 1,000 mL, Memori a Chloride 6-10 Infuse l 0.9% 04:38: Over: 1 [place] (Bolus) IV 00 hr, Route: IV, ONCE, Priority: STAT, Dosing Weight 96.364 kg, Start date: 12/05/19 23:38:00 CDT, Stop date: 12/05/19 23:38:00 CDT Sodium 2020-0 No 1,000 mL, Memori a Chloride 6-10 Infuse l 0.9% 04:38: Over: 1 Brian (Bolus) IV 00 hr, Route: IV, ONCE, Priority: STAT, Dosing Weight 96.364 kg, Start date: 12/05/19 23:38:00 CDT, Stop date: 12/05/19 23:38:00 CDT Sodium 2020-0 No 1,000 mL, Memori a Chloride 6-10 Infuse l 0.9% 04:38: Over: 1 Brian (Bolus) IV 00 hr, Route: IV, ONCE, Priority: STAT, Dosing Weight 96.364 kg, Start date: 12/05/19 23:38:00 CDT, Stop date: 12/05/19 23:38:00 CDT Sodium 2020-0 No 1,000 mL, Memori a Chloride 6-10 Infuse l 0.9% 04:38: Over: 1 [place] (Bolus) IV 00 hr, Route: IV, ONCE, Priority: STAT, Dosing Weight 96.364 kg, Start date: 12/05/19 23:38:00 CDT, Stop date: 12/05/19 23:38:00 CDT Sodium 2020-0 No 1,000 mL, Memori a Chloride 6-10 Infuse l 0.9% 04:38: Over: 1 Brian (Bolus) IV 00 hr, Route: IV, ONCE, Priority: STAT, Dosing Weight 96.364 kg, Start date: 12/05/19 23:38:00 CDT, Stop date: 12/05/19 23:38:00 CDT Sodium 2020-0 No 1,000 mL, Memori a Chloride 6-10 Infuse l 0.9% 04:38: Over: 1 Brian (Bolus) IV 00 hr, Route: IV, ONCE, Priority: STAT, Dosing Weight 96.364 kg, Start date: 12/05/19 23:38:00 CDT, Stop date: 12/05/19 23:38:00 CDT Sodium 2020-0 No 1,000 mL, Memori a Chloride 6-10 Infuse l 0.9% 04:38: Over: 1 Brian (Bolus) IV 00 hr, Route: IV, ONCE, Priority: STAT, Dosing Weight 96.364 kg, Start date: 12/05/19 23:38:00 CDT, Stop date: 12/05/19 23:38:00 CDT Sodium 2020-0 No 1,000 mL, Memori a Chloride 6-10 Infuse l 0.9% 04:38: Over: 1 Brian (Bolus) IV 00 hr, Route: IV, ONCE, Priority: STAT, Dosing Weight 96.364 kg, Start date: 12/05/19 23:38:00 CDT, Stop date: 12/05/19 23:38:00 CDT Sodium 2020-0 No 1,000 mL, Memori a Chloride 6-10 Infuse l 0.9% 04:38: Over: 1 [place] (Bolus) IV 00 hr, Route: IV, ONCE, Priority: STAT, Dosing Weight 96.364 kg, Start date: 12/05/19 23:38:00 CDT, Stop date: 12/05/19 23:38:00 CDT Insulin 2020-0 No 10 unit, Memori a regular 6-10 Route: l 04:37: IVP, ONCE, [place] 00 Dosing Weight 96.364, kg, Priority: STAT, Start date: 12/05/19 23:37:00 CDT, Stop date: 12/05/19 23:37:00 CDT Insulin 2020-0 No 10 unit, Memori a regular 6-10 Route: l 04:37: IVP, ONCE, [place] 00 Dosing Weight 96.364, kg, Priority: STAT, Start date: 12/05/19 23:37:00 CDT, Stop date: 12/05/19 23:37:00 CDT Insulin 2020-0 No 10 unit, Memori a regular 6-10 Route: l 04:37: IVP, ONCE, Brian 00 Dosing Weight 96.364, kg, Priority: STAT, Start date: 12/05/19 23:37:00 CDT, Stop date: 12/05/19 23:37:00 CDT Insulin 2020-0 No 10 unit, Memori a regular 6-10 Route: l 04:37: IVP, ONCE, Brian 00 Dosing Weight 96.364, kg, Priority: STAT, Start date: 12/05/19 23:37:00 CDT, Stop date: 12/05/19 23:37:00 CDT Insulin 2020-0 No 10 unit, Memori a regular 6-10 Route: l 04:37: IVP, ONCE, Brian 00 Dosing Weight 96.364, kg, Priority: STAT, Start date: 12/05/19 23:37:00 CDT, Stop date: 12/05/19 23:37:00 CDT Insulin 2020-0 No 10 unit, Memori a regular 6-10 Route: l 04:37: IVP, ONCE, [place] 00 Dosing Weight 96.364, kg, Priority: STAT, Start date: 12/05/19 23:37:00 CDT, Stop date: 12/05/19 23:37:00 CDT Insulin 2020-0 No 10 unit, Memori a regular 6-10 Route: l 04:37: IVP, ONCE, [place] 00 Dosing Weight 96.364, kg, Priority: STAT, Start date: 12/05/19 23:37:00 CDT, Stop date: 12/05/19 23:37:00 CDT Insulin 2020-0 No 10 unit, Memori a regular 6-10 Route: l 04:37: IVP, ONCE, [place] 00 Dosing Weight 96.364, kg, Priority: STAT, Start date: 12/05/19 23:37:00 CDT, Stop date: 12/05/19 23:37:00 CDT Insulin 2020-0 No 10 unit, Memori a regular 6-10 Route: l 04:37: IVP, ONCE, [place] 00 Dosing Weight 96.364, kg, Priority: STAT, Start date: 12/05/19 23:37:00 CDT, Stop date: 12/05/19 23:37:00 CDT Insulin 2020-0 No 10 unit, Memori a regular 6-10 Route: l 04:37: IVP, ONCE, Brian 00 Dosing Weight 96.364, kg, Priority: STAT, Start date: 12/05/19 23:37:00 CDT, Stop date: 12/05/19 23:37:00 CDT Insulin 2020-0 No 10 unit, Memori a regular 6-10 Route: l 04:37: IVP, ONCE, [place] 00 Dosing Weight 96.364, kg, Priority: STAT, Start date: 12/05/19 23:37:00 CDT, Stop date: 12/05/19 23:37:00 CDT Insulin 2020-0 No 10 unit, Parmjit huerta regular 6-10 Route: l 04:37: IVP, ONCE, Brian 00 Dosing Weight 96.364, kg, Priority: STAT, Start date: 12/05/19 23:37:00 CDT, Stop date: 12/05/19 23:37:00 CDT Vancomycin 2020-0 No 2000 mg: Me moria 6-10 infuse l 04:14: over 2.5 Brian 00 hours For adult patients only: Round to nearest 250 mg per Medical Staff approval MEDICATION WASTE Product Size: 1000 mg Product Wasted: _0__ mg Zosyn 2020-0 No Notes: Memoria 6-10 (Same as: l 04:14: Zosyn) Brian 00 Dosing based on Piperacill in component MEDICATION WASTE Product Size: 3375 mg Product Wasted: _0__ mg Vancomycin 2020-0 No 2000 mg: Me moria 6-10 infuse l 04:14: over 2.5 [place] 00 hours For adult patients only: Round to nearest 250 mg per Medical Staff approval MEDICATION WASTE Product Size: 1000 mg Product Wasted: _0__ mg Zosyn 2020-0 No Notes: Memoria 6-10 (Same as: l 04:14: Zosyn) [place] 00 Dosing based on Piperacill in component MEDICATION WASTE Product Size: 3375 mg Product Wasted: _0__ mg Vancomycin 2020-0 No 2000 mg: Me moria 6-10 infuse l 04:14: over 2.5 Brian 00 hours For adult patients only: Round to nearest 250 mg per Medical Staff approval MEDICATION WASTE Product Size: 1000 mg Product Wasted: _0__ mg Zosyn 2020-0 No Notes: Memoria 6-10 (Same as: l 04:14: Zosyn) [place] 00 Dosing based on Piperacill in component MEDICATION WASTE Product Size: 3375 mg Product Wasted: _0__ mg Vancomycin 2020-0 No 2000 mg: Me moria 6-10 infuse l 04:14: over 2.5 Brian 00 hours For adult patients only: Round to nearest 250 mg per Medical Staff approval MEDICATION WASTE Product Size: 1000 mg Product Wasted: _0__ mg Zosyn 2020-0 No Notes: Memoria 6-10 (Same as: l 04:14: Zosyn) [place] 00 Dosing based on Piperacill in component MEDICATION WASTE Product Size: 3375 mg Product Wasted: _0__ mg Vancomycin 2020-0 No 2001 mg: Me moria 6-10 infuse l 04:14: over 2.5 Brian 00 hours For adult patients only: Round to nearest 250 mg per Medical Staff approval MEDICATION WASTE Product Size: 1000 mg Product Wasted: _0__ mg Zosyn 2020-0 No Notes: Memoria 6-10 (Same as: l 04:14: Zosyn) Brian 00 Dosing based on Piperacill in component MEDICATION WASTE Product Size: 3375 mg Product Wasted: _0__ mg Vancomycin 2020-0 No 2000 mg: Me moria 6-10 infuse l 04:14: over 2.5 [place] 00 hours For adult patients only: Round to nearest 250 mg per Medical Staff approval MEDICATION WASTE Product Size: 1000 mg Product Wasted: _0__ mg Zosyn 2020-0 No Notes: Memoria 6-10 (Same as: l 04:14: Zosyn) Brian 00 Dosing based on Piperacill in component MEDICATION WASTE Product Size: 3375 mg Product Wasted: _0__ mg Vancomycin 2020-0 No 2000 mg: Me moria 6-10 infuse l 04:14: over 2.5 Brian 00 hours For adult patients only: Round to nearest 250 mg per Medical Staff approval MEDICATION WASTE Product Size: 1000 mg Product Wasted: _0__ mg Zosyn 2020-0 No Notes: Memoria 6-10 (Same as: l 04:14: Zosyn) Brian 00 Dosing based on Piperacill in component MEDICATION WASTE Product Size: 3375 mg Product Wasted: _0__ mg Vancomycin 2020-0 No 2000 mg: Me moria 6-10 infuse l 04:14: over 2.5 [place] 00 hours For adult patients only: Round to nearest 250 mg per Medical Staff approval MEDICATION WASTE Product Size: 1000 mg Product Wasted: _0__ mg Zosyn 2020-0 No Notes: Memoria 6-10 (Same as: l 04:14: Zosyn) Brian 00 Dosing based on Piperacill in component MEDICATION WASTE Product Size: 3375 mg Product Wasted: _0__ mg Vancomycin 2020-0 No 2000 mg: Me moria 6-10 infuse l 04:14: over 2.5 [place] 00 hours For adult patients only: Round to nearest 250 mg per Medical Staff approval MEDICATION WASTE Product Size: 1000 mg Product Wasted: _0__ mg Zosyn 2020-0 No Notes: Memoria 6-10 (Same as: l 04:14: Zosyn) [place] 00 Dosing based on Piperacill in component MEDICATION WASTE Product Size: 3375 mg Product Wasted: _0__ mg Vancomycin 2020-0 No 2000 mg: Me moria 6-10 infuse l 04:14: over 2.5 [place] 00 hours For adult patients only: Round to nearest 250 mg per Medical Staff approval MEDICATION WASTE Product Size: 1000 mg Product Wasted: _0__ mg Zosyn 2020-0 No Notes: Memoria 6-10 (Same as: l 04:14: Zosyn) [place] 00 Dosing based on Piperacill in component MEDICATION WASTE Product Size: 3375 mg Product Wasted: _0__ mg Vancomycin 2020-0 No 2000 mg: Me moria 6-10 infuse l 04:14: over 2.5 [place] 00 hours For adult patients only: Round to nearest 250 mg per Medical Staff approval MEDICATION WASTE Product Size: 1000 mg Product Wasted: _0__ mg Zosyn 2020-0 No Notes: Memoria 6-10 (Same as: l 04:14: Zosyn) [place] 00 Dosing based on Piperacill in component MEDICATION WASTE Product Size: 3375 mg Product Wasted: _0__ mg Vancomycin 2020-0 No 2000 mg: Me moria 6-10 infuse l 04:14: over 2.5 [place] 00 hours For adult patients only: Round to nearest 250 mg per Medical Staff approval MEDICATION WASTE Product Size: 1000 mg Product Wasted: _0__ mg Zosyn 2020-0 No Notes: Memoria 6-10 (Same as: l 04:14: Zosyn) Dosing based on Piperacill in component MEDICATION WASTE Product Size: 3375 mg Product Wasted: _0__ mg Tylenol 2020-0 No 650 mg, Memoria 6-10 Route: PO, l 04:11: Drug form: Brian 00 TAB, ONCE, Dosing Weight 96.364, kg, Priority: STAT, Start date: 12/05/19 23:11:00 CDT, Stop date: 12/05/19 23:11:00 CDT Tylenol 2020-0 No 650 mg, Memoria 6-10 Route: PO, l 04:11: Drug form: [place] 00 TAB, ONCE, Dosing Weight 96.364, kg, Priority: STAT, Start date: 12/05/19 23:11:00 CDT, Stop date: 12/05/19 23:11:00 CDT Tylenol 2020-0 No 650 mg, Memoria 6-10 Route: PO, l 04:11: Drug form: Brian 00 TAB, ONCE, Dosing Weight 96.364, kg, Priority: STAT, Start date: 12/05/19 23:11:00 CDT, Stop date: 12/05/19 23:11:00 CDT Tylenol 2020-0 No 650 mg, Memoria 6-10 Route: PO, l 04:11: Drug form: Brian 00 TAB, ONCE, Dosing Weight 96.364, kg, Priority: STAT, Start date: 12/05/19 23:11:00 CDT, Stop date: 12/05/19 23:11:00 CDT Tylenol 2020-0 No 650 mg, Memoria 6-10 Route: PO, l 04:11: Drug form: [place] 00 TAB, ONCE, Dosing Weight 96.364, kg, Priority: STAT, Start date: 12/05/19 23:11:00 CDT, Stop date: 12/05/19 23:11:00 CDT Tylenol 2020-0 No 650 mg, Memoria 6-10 Route: PO, l 04:11: Drug form: [place] 00 TAB, ONCE, Dosing Weight 96.364, kg, Priority: STAT, Start date: 12/05/19 23:11:00 CDT, Stop date: 12/05/19 23:11:00 CDT Tylenol 2020-0 No 650 mg, Memoria 6-10 Route: PO, l 04:11: Drug form: [place] 00 TAB, ONCE, Dosing Weight 96.364, kg, Priority: STAT, Start date: 12/05/19 23:11:00 CDT, Stop date: 12/05/19 23:11:00 CDT Tylenol 2020-0 No 650 mg, Memoria 6-10 Route: PO, l 04:11: Drug form: Brian 00 TAB, ONCE, Dosing Weight 96.364, kg, Priority: STAT, Start date: 12/05/19 23:11:00 CDT, Stop date: 12/05/19 23:11:00 CDT Tylenol 2020-0 No 650 mg, Memoria 6-10 Route: PO, l 04:11: Drug form: [place] 00 TAB, ONCE, Dosing Weight 96.364, kg, Priority: STAT, Start date: 12/05/19 23:11:00 CDT, Stop date: 12/05/19 23:11:00 CDT Tylenol 2020-0 No 650 mg, Memoria 6-10 Route: PO, l 04:11: Drug form: Brian 00 TAB, ONCE, Dosing Weight 96.364, kg, Priority: STAT, Start date: 12/05/19 23:11:00 CDT, Stop date: 12/05/19 23:11:00 CDT Tylenol 2020-0 No 650 mg, Memoria 6-10 Route: PO, l 04:11: Drug form: Brian 00 TAB, ONCE, Dosing Weight 96.364, kg, Priority: STAT, Start date: 12/05/19 23:11:00 CDT, Stop date: 12/05/19 23:11:00 CDT Tylenol 2020-0 No 650 mg, Memoria 6-10 Route: PO, l 04:11: Drug form: [place] 00 TAB, ONCE, Dosing Weight 96.364, kg, Priority: STAT, Start date: 12/05/19 23:11:00 CDT, Stop date: 12/05/19 23:11:00 CDT Cipro 2020-0 No 400 mg, Memoria 6-10 Route: l 03:49: IVPB, [place] 00 ONCE, Dosing Weight 96.364, kg, Priority: STAT, Start date: 12/05/19 22:49:00 CDT, Stop date: 12/05/19 22:49:00 CDT, ABX Indication : Skin/Soft Tissue Infection Flagyl 2020-0 No 500 mg, Memoria 6-10 Route: l 03:49: IVPB, Brian 00 ONCE, Dosing Weight 96.364, kg, Priority: STAT, Start date: 12/05/19 22:49:00 CDT, Stop date: 12/05/19 22:49:00 CDT, ABX Indication : Skin/Soft Tissue Infection Cipro 2020-0 No 400 mg, Memoria 6-10 Route: l 03:49: IVPB, [place] 00 ONCE, Dosing Weight 96.364, kg, Priority: STAT, Start date: 12/05/19 22:49:00 CDT, Stop date: 12/05/19 22:49:00 CDT, ABX Indication : Skin/Soft Tissue Infection Flagyl 2020-0 No 500 mg, Memoria 6-10 Route: l 03:49: IVPB, [place] 00 ONCE, Dosing Weight 96.364, kg, Priority: STAT, Start date: 12/05/19 22:49:00 CDT, Stop date: 12/05/19 22:49:00 CDT, ABX Indication : Skin/Soft Tissue Infection Cipro 2020-0 No 400 mg, Memoria 6-10 [...] CDT, ABX Indication : Skin/Soft Tissue Infection Cipro 2020-0 No 400 mg, Memoria 6-10 Route: l 03:49: IVPB, [place] 00 ONCE, Dosing Weight 96.364, kg, Priority: STAT, Start date: 12/05/19 22:49:00 CDT, Stop date: 12/05/19 22:49:00 CDT, ABX Indication : Skin/Soft Tissue Infection Flagyl 2020-0 No 500 mg, Memoria 6-10 Route: l 03:49: IVPB, [place] 00 ONCE, Dosing Weight 96.364, kg, Priority: STAT, Start date: 12/05/19 22:49:00 CDT, Stop date: 12/05/19 22:49:00 CDT, ABX Indication : Skin/Soft Tissue Infection Cipro 2020-0 No 400 mg, Memoria 6-10 Route: l 03:49: IVPB, [place] 00 ONCE, Dosing Weight 96.364, kg, Priority: STAT, Start date: 12/05/19 22:49:00 CDT, Stop date: 12/05/19 22:49:00 CDT, ABX Indication : Skin/Soft Tissue Infection Flagyl 2020-0 No 500 mg, Memoria 6-10 Route: l 03:49: IVPB, Brian 00 ONCE, Dosing Weight 96.364, kg, Priority: STAT, Start date: 12/05/19 22:49:00 CDT, Stop date: 12/05/19 22:49:00 CDT, ABX Indication : Skin/Soft Tissue Infection Cipro 2020-0 No 400 mg, Memoria 6-10 Route: l 03:49: IVPB, Brian 00 ONCE, Dosing Weight 96.364, kg, Priority: STAT, Start date: 12/05/19 22:49:00 CDT, Stop date: 12/05/19 22:49:00 CDT, ABX Indication : Skin/Soft Tissue Infection Flagyl 2020-0 No 500 mg, Memoria 6-10 Route: l 03:49: IVPB, [place] 00 ONCE, Dosing Weight 96.364, kg, Priority: STAT, Start date: 12/05/19 22:49:00 CDT, Stop date: 12/05/19 22:49:00 CDT, ABX Indication : Skin/Soft Tissue Infection Cipro 2020-0 No 400 mg, Memoria 6-10 Route: l 03:49: IVPB, Brian 00 ONCE, Dosing Weight 96.364, kg, Priority: STAT, Start date: 12/05/19 22:49:00 CDT, Stop date: 12/05/19 22:49:00 CDT, ABX Indication : Skin/Soft Tissue Infection Flagyl 2020-0 No 500 mg, Memoria 6-10 Route: l 03:49: IVPB, [place] 00 ONCE, Dosing Weight 96.364, kg, Priority: STAT, Start date: 12/05/19 22:49:00 CDT, Stop date: 12/05/19 22:49:00 CDT, ABX Indication : Skin/Soft Tissue Infection Cipro 2020-0 No 400 mg, Memoria 6-10 Route: l 03:49: IVPB, [place] 00 ONCE, Dosing Weight 96.364, kg, Priority: STAT, Start date: 12/05/19 22:49:00 CDT, Stop date: 12/05/19 22:49:00 CDT, ABX Indication : Skin/Soft Tissue Infection Flagyl 2020-0 No 500 mg, Memoria 6-10 Route: l 03:49: IVPB, [place] 00 ONCE, Dosing Weight 96.364, kg, Priority: STAT, Start date: 12/05/19 22:49:00 CDT, Stop date: 12/05/19 22:49:00 CDT, ABX Indication : Skin/Soft Tissue Infection Cipro 2020-0 No 400 mg, Memoria 6-10 [...] CDT, ABX Indication : Skin/Soft Tissue Infection Cipro 2020-0 No 400 mg, Memoria 6-10 [...] CDT, ABX Indication : Skin/Soft Tissue Infection Cipro 2020-0 No 400 mg, Memoria 6-10 Route: l 03:49: IVPB, [place] 00 ONCE, Dosing Weight 96.364, kg, Priority: STAT, Start date: 12/05/19 22:49:00 CDT, Stop date: 12/05/19 22:49:00 CDT, ABX Indication : Skin/Soft Tissue Infection Flagyl 2020-0 No 500 mg, Memoria 6-10 Route: l 03:49: IVPB, Brian 00 ONCE, Dosing Weight 96.364, kg, Priority: STAT, Start date: 12/05/19 22:49:00 CDT, Stop date: 12/05/19 22:49:00 CDT, ABX Indication : Skin/Soft Tissue Infection Cipro 2020-0 No 400 mg, Memoria 6-10 Route: l 03:49: IVPB, [place] 00 ONCE, Dosing Weight 96.364, kg, Priority: STAT, Start date: 12/05/19 22:49:00 CDT, Stop date: 12/05/19 22:49:00 CDT, ABX Indication : Skin/Soft Tissue Infection Flagyl 2020-0 No 500 mg, Memoria 6-10 Route: l 03:49: IVPB, [place] 00 ONCE, Dosing Weight 96.364, kg, Priority: STAT, Start date: 12/05/19 22:49:00 CDT, Stop date: 12/05/19 22:49:00 CDT, ABX Indication : Skin/Soft Tissue Infection Morphine 2020-0 No 4 mg, Memoria 6-10 Route: l 03:38: IVP, ONCE, [place] 00 Dosing Weight 96.364, kg, Priority: STAT, Start date: 12/05/19 22:38:00 CDT, Stop date: 12/05/19 22:38:00 CDT Ondansetron 2020-0 No 4 mg, Memor ia 6-10 Route: l 03:38: IVP, Drug Brian 00 form: INJ, ONCE, Dosing Weight 96.364, kg, Priority: STAT, Start date: 12/05/19 22:38:00 CDT, Stop date: 12/05/19 22:38:00 CDT Morphine 2020-0 No 4 mg, [facility] 6-10 Route: l 03:38: IVP, ONCE, [place] 00 Dosing Weight 96.364, kg, Priority: STAT, Start date: 12/05/19 22:38:00 CDT, Stop date: 12/05/19 22:38:00 CDT Ondansetron 2020-0 No 4 mg, [facility] 6-10 Route: l 03:38: IVP, Drug [place] 00 form: INJ, ONCE, Dosing Weight 96.364, kg, Priority: STAT, Start date: 12/05/19 22:38:00 CDT, Stop date: 12/05/19 22:38:00 CDT Morphine 2020-0 No 4 mg, [facility] 6-10 Route: l 03:38: IVP, ONCE, [place] 00 Dosing Weight 96.364, kg, Priority: STAT, Start date: 12/05/19 22:38:00 CDT, Stop date: 12/05/19 22:38:00 CDT Ondansetron 2020-0 No 4 mg, [facility] 6-10 Route: l 03:38: IVP, Drug Brian 00 form: INJ, ONCE, Dosing Weight 96.364, kg, Priority: STAT, Start date: 12/05/19 22:38:00 CDT, Stop date: 12/05/19 22:38:00 CDT Morphine 2020-0 No 4 mg, [facility] 6-10 Route: l 03:38: IVP, ONCE, [place] 00 Dosing Weight 96.364, kg, Priority: STAT, Start date: 12/05/19 22:38:00 CDT, Stop date: 12/05/19 22:38:00 CDT Ondansetron 2020-0 No 4 mg, [facility] 6-10 Route: l 03:38: IVP, Drug [place] 00 form: INJ, ONCE, Dosing Weight 96.364, kg, Priority: STAT, Start date: 12/05/19 22:38:00 CDT, Stop date: 12/05/19 22:38:00 CDT Morphine 2020-0 No 4 mg, [facility] 6-10 Route: l 03:38: IVP, ONCE, [place] 00 Dosing Weight 96.364, kg, Priority: STAT, Start date: 12/05/19 22:38:00 CDT, Stop date: 12/05/19 22:38:00 CDT Ondansetron 2020-0 No 4 mg, [facility] 6-10 Route: l 03:38: IVP, Drug [place] 00 form: INJ, ONCE, Dosing Weight 96.364, kg, Priority: STAT, Start date: 12/05/19 22:38:00 CDT, Stop date: 12/05/19 22:38:00 CDT Morphine 2020-0 No 4 mg, [facility] 6-10 Route: l 03:38: IVP, ONCE, [place] 00 Dosing Weight 96.364, kg, Priority: STAT, Start date: 12/05/19 22:38:00 CDT, Stop date: 12/05/19 22:38:00 CDT Ondansetron 2020-0 No 4 mg, [facility] 6-10 Route: l 03:38: IVP, Drug [place] 00 form: INJ, ONCE, Dosing Weight 96.364, kg, Priority: STAT, Start date: 12/05/19 22:38:00 CDT, Stop date: 12/05/19 22:38:00 CDT Morphine 2020-0 No 4 mg, [facility] 6-10 Route: l 03:38: IVP, ONCE, [place] 00 Dosing Weight 96.364, kg, Priority: STAT, Start date: 12/05/19 22:38:00 CDT, Stop date: 12/05/19 22:38:00 CDT Ondansetron 2020-0 No 4 mg, [facility] 6-10 Route: l 03:38: IVP, Drug [place] 00 form: INJ, ONCE, Dosing Weight 96.364, kg, Priority: STAT, Start date: 12/05/19 22:38:00 CDT, Stop date: 12/05/19 22:38:00 CDT Morphine 2020-0 No 4 mg, Memoria 6-10 Route: l 03:38: IVP, ONCE, [place] 00 Dosing Weight 96.364, kg, Priority: STAT, Start date: 12/05/19 22:38:00 CDT, Stop date: 12/05/19 22:38:00 CDT Ondansetron 2020-0 No 4 mg, Memor ia 6-10 Route: l 03:38: IVP, Drug [place] 00 form: INJ, ONCE, Dosing Weight 96.364, kg, Priority: STAT, Start date: 12/05/19 22:38:00 CDT, Stop date: 12/05/19 22:38:00 CDT Morphine 2020-0 No 4 mg, Memoria 6-10 Route: l 03:38: IVP, ONCE, [place] 00 Dosing Weight 96.364, kg, Priority: STAT, Start date: 12/05/19 22:38:00 CDT, Stop date: 12/05/19 22:38:00 CDT Ondansetron 2020-0 No 4 mg, Memor ia 6-10 Route: l 03:38: IVP, Drug Brian 00 form: INJ, ONCE, Dosing Weight 96.364, kg, Priority: STAT, Start date: 12/05/19 22:38:00 CDT, Stop date: 12/05/19 22:38:00 CDT Morphine 2020-0 No 4 mg, Memoria 6-10 Route: l 03:38: IVP, ONCE, Brian 00 Dosing Weight 96.364, kg, Priority: STAT, Start date: 12/05/19 22:38:00 CDT, Stop date: 12/05/19 22:38:00 CDT Ondansetron 2020-0 No 4 mg, Memor ia 6-10 Route: l 03:38: IVP, Drug Brian 00 form: INJ, ONCE, Dosing Weight 96.364, kg, Priority: STAT, Start date: 12/05/19 22:38:00 CDT, Stop date: 12/05/19 22:38:00 CDT Morphine 2020-0 No 4 mg, Memoria 6-10 Route: l 03:38: IVP, ONCE, Dosing Weight 96.364, kg, Priority: STAT, Start date: 12/05/19 22:38:00 CDT, Stop date: 12/05/19 22:38:00 CDT Ondansetron 2020-0 No 4 mg, Memor ia 6-10 Route: l 03:38: IVP, Drug 00 form: INJ, ONCE, Dosing Weight 96.364, kg, Priority: STAT, Start date: 12/05/19 22:38:00 CDT, Stop date: 12/05/19 22:38:00 CDT Morphine 2020-0 No 4 mg, Memoria 6-10 Route: l 03:38: IVP, ONCE, Dosing Weight 96.364, kg, Priority: STAT, Start date: 12/05/19 22:38:00 CDT, Stop date: 12/05/19 22:38:00 CDT Ondansetron 2020-0 No 4 mg, Memor ia 6-10 Route: l 03:38: IVP, Drug form: INJ, ONCE, Dosing Weight 96.364, kg, Priority: STAT, Start date: 12/05/19 22:38:00 CDT, Stop date: 12/05/19 22:38:00 CDT carvedilol 0 No Notes: Memor ia 6-06 Give with l 02:00: food. (Same As: Coreg) gabapentin 0 No Notes: Memor ia 6-06 (Same as: l 02:00: Neurontin) irbesartan 0 No Notes: Memor ia 6-06 (Same l 02:00: as:Avapro) NIFEdipine 2019-0 No Notes: Memor ia 60 mg oral 6-06 (Same as: l tablet, 02:00: Adalat CC, Herm sarah extended 00 Procardia release XL) Give on empty stomach. Take 1 hour before or 2 hours after meal; "Avoid grapefruit and grapefruit juice". Do not crush Crestor 2019-0 No Notes: Memoria 6-06 (Same As: l 02:00: Crestor) carvedilol 0 No Notes: Memor ia 6-06 Give with l 02:00: food. (Same As: Coreg) gabapentin 0 No Notes: Memor ia 6-06 (Same as: l 02:00: Neurontin) irbesartan No Notes: Memor ia 6-06 (Same l 02:00: as:Avapro) NIFEdipine No Notes: Memor ia 60 mg oral 6-06 (Same as: l tablet, 02:00: Adalat CC, Herm sarah extended 00 Procardia release XL) Give on empty stomach. Take 1 hour before or 2 hours after meal; "Avoid grapefruit and grapefruit juice". Do not crush Crestor 0 No Notes: Memoria 6-06 (Same As: l 02:00: Crestor) carvedilol No Notes: Memor ia 6-06 Give with l 02:00: food. (Same As: Coreg) gabapentin No Notes: Memor ia 6-06 (Same as: l 02:00: Neurontin) irbesartan No Notes: Memor ia 6-06 (Same l 02:00: as:Avapro) NIFEdipine No Notes: Memor ia 60 mg oral 6-06 (Same as: l tablet, 02:00: Adalat CC, Herm sarah extended 00 Procardia release XL) Give on empty stomach. Take 1 hour before or 2 hours after meal; "Avoid grapefruit and grapefruit juice". Do not crush Crestor 0 No Notes: Memoria 6-06 (Same As: l 02:00: Crestor) carvedilol No Notes: Memor ia 6-06 Give with l 02:00: food. (Same As: Coreg) gabapentin No Notes: Memor ia 6-06 (Same as: l 02:00: Neurontin) irbesartan No Notes: Memor ia 6-06 (Same l 02:00: as:Avapro) NIFEdipine No Notes: Memor ia 60 mg oral 6-06 (Same as: l tablet, 02:00: Adalat CC, Herm sarah extended 00 Procardia release XL) Give on empty stomach. Take 1 hour before or 2 hours after meal; "Avoid grapefruit and grapefruit juice". Do not crush Crestor 2020-0 No Notes: Memoria 6-06 (Same As: l 02:00: Crestor) carvedilol No Notes: Memor ia 6-06 Give with l 02:00: food. (Same As: Coreg) gabapentin 0 No Notes: Memor ia 6-06 (Same as: l 02:00: Neurontin) irbesartan No Notes: Memor ia 6-06 (Same l 02:00: as:Avapro) NIFEdipine No Notes: Memor ia 60 mg oral 6-06 (Same as: l tablet, 02:00: Adalat CC, Herm sarah extended 00 Procardia release XL) Give on empty stomach. Take 1 hour before or 2 hours after meal; "Avoid grapefruit and grapefruit juice". Do not crush Crestor 2020-0 No Notes: Memoria 6-06 (Same As: l 02:00: Crestor) carvedilol No Notes: Mem[facility] ia 6-06 Give with l 02:00: food. (Same As: Coreg) gabapentin 0 No Notes: Mem[facility] ia 6-06 (Same as: l 02:00: Neurontin) irbesartan No Notes: Memor ia 6-06 (Same l 02:00: as:Avapro) NIFEdipine 0 No Notes: Memor ia 60 mg oral 6-06 (Same as: l tablet, 02:00: Adalat CC, Herm sarah extended 00 Procardia release XL) Give on empty stomach. Take 1 hour before or 2 hours after meal; "Avoid grapefruit and grapefruit juice". Do not crush Crestor 2020-0 No Notes: Memoria 6-06 (Same As: l 02:00: Crestor) carvedilol No Notes: Memor ia 6-06 Give with l 02:00: food. (Same As: Coreg) gabapentin 2019-0 No Notes: Memor ia 6-06 (Same as: l 02:00: Neurontin) irbesartan 2019-0 No Notes: Mem[facility] ia 6-06 (Same l 02:00: as:Avapro) NIFEdipine 2019-0 No Notes: Memor ia 60 mg oral 6-06 (Same as: l tablet, 02:00: Adalat CC, Herm sarah extended 00 Procardia release XL) Give on empty stomach. Take 1 hour before or 2 hours after meal; "Avoid grapefruit and grapefruit juice". Do not crush Crestor 2020-0 No Notes: Memoria 6-06 (Same As: l 02:00: Crestor) carvedilol 2019-0 No Notes: Mem[facility] ia 6-06 Give with l 02:00: food. (Same As: Coreg) gabapentin 2019-0 No Notes: Memor ia 6-06 (Same as: l 02:00: Neurontin) irbesartan No Notes: Mem[facility] ia 6-06 (Same l 02:00: as:Avapro) NIFEdipine 2019-0 No Notes: Memor ia 60 mg oral 6-06 (Same as: l tablet, 02:00: Adalat CC, Herm sarah extended 00 Procardia release XL) Give on empty stomach. Take 1 hour before or 2 hours after meal; "Avoid grapefruit and grapefruit juice". Do not crush Crestor 2020-0 No Notes: Memoria 6-06 (Same As: l 02:00: Crestor) carvedilol 2019-0 No Notes: Mem[facility] ia 6-06 Give with l 02:00: food. (Same As: Coreg) gabapentin 2019-0 No Notes: Memor ia 6-06 (Same as: l 02:00: Neurontin) irbesartan 2019-0 No Notes: Memor ia 6-06 (Same l 02:00: as:Avapro) NIFEdipine 2019-0 No Notes: Memor ia 60 mg oral 6-06 (Same as: l tablet, 02:00: Adalat CC, Herm sarah extended 00 Procardia release XL) Give on empty stomach. Take 1 hour before or 2 hours after meal; "Avoid grapefruit and grapefruit juice". Do not crush Crestor 2020-0 No Notes: Memoria 6-06 (Same As: l 02:00: Crestor) carvedilol No Notes: [facility] ia 6-06 Give with l 02:00: food. (Same As: Coreg) gabapentin No Notes: Memor ia 6-06 (Same as: l 02:00: Neurontin) irbesartan No Notes: Mem[facility] ia 6-06 (Same l 02:00: as:Avapro) NIFEdipine No Notes: [facility] ia 60 mg oral 6-06 (Same as: l tablet, 02:00: Adalat CC, Herm sarah extended 00 Procardia release XL) Give on empty stomach. Take 1 hour before or 2 hours after meal; "Avoid grapefruit and grapefruit juice". Do not crush Crestor 0 No Notes: Memoria 6-06 (Same As: l 02:00: Crestor) carvedilol No Notes: Mem[facility] ia 6-06 Give with l 02:00: food. (Same As: Coreg) gabapentin No Notes: Memor ia 6-06 (Same as: l 02:00: Neurontin) irbesartan No Notes: [facility] ia 6-06 (Same l 02:00: as:Avapro) NIFEdipine No Notes: [facility] ia 60 mg oral 6-06 (Same as: l tablet, 02:00: Adalat CC, Herm sarah extended 00 Procardia release XL) Give on empty stomach. Take 1 hour before or 2 hours after meal; "Avoid grapefruit and grapefruit juice". Do not crush Crestor 0 No Notes: [facility]oria 6-06 (Same As: l 02:00: Crestor) carvedilol No Notes: Memor ia 6-06 Give with l 02:00: food. (Same As: Coreg) gabapentin No Notes: [facility] ia 6-06 (Same as: l 02:00: Neurontin) irbesartan No Notes: Memor ia 6-06 (Same l 02:00: as:Avapro) NIFEdipine No Notes: [facility] ia 60 mg oral 12-01 (Same as: l tablet, 02:00: Adalat CC, Herm sarah extended Procardia release XL) Give on empty stomach. Take 1 hour before or 2 hours after meal; "Avoid grapefruit and grapefruit juice". Do not crush Crestor No Notes: Memoria 6 (Same As: l 02:00: Crestor) Brian latanoprost No Notes: Jacinto margarita 6-05 Keep l 22:00: refrigerat [place] 00 ed. (Same as:Xalatan ) Opened bottle may be stored at room temperatur e for 6 weeks latanoprost No Notes: Jacinto margarita 6-05 Keep l 22:00: refrigerat Brian 00 ed. (Same as:Xalatan ) Opened bottle may be stored at room temperatur e for 6 weeks latanoprost No Notes: Jacinto margarita 6-05 Keep l 22:00: refrigerat Brian 00 ed. (Same as:Xalatan ) Opened bottle may be stored at room temperatur e for 6 weeks latanoprost No Notes: Jacinto margarita 6-05 Keep l 22:00: refrigerat Brian 00 ed. (Same as:Xalatan ) Opened bottle may be stored at room temperatur e for 6 weeks latanoprost No Notes: Jacinto margarita 6-05 Keep l 22:00: refrigerat [place] 00 ed. (Same as:Xalatan ) Opened bottle may be stored at room temperatur e for 6 weeks latanoprost No Notes: Jacinto margarita 6-05 Keep l 22:00: refrigerat Brian 00 ed. (Same as:Xalatan ) Opened bottle may be stored at room temperatur e for 6 weeks latanoprost No Notes: Jacinto margarita 6-05 Keep l 22:00: refrigerat Brian 00 ed. (Same as:Xalatan ) Opened bottle may be stored at room temperatur e for 6 weeks latanoprost No Notes: Jacinto margarita 6-05 Keep l 22:00: refrigerat Brian 00 ed. (Same as:Xalatan ) Opened bottle may be stored at room temperatur e for 6 weeks latanoprost 2019-0 No Notes: Jacinto margarita 6-05 Keep l 22:00: refrigerat [place] 00 ed. (Same as:Xalatan ) Opened bottle may be stored at room temperatur e for 6 weeks latanoprost No Notes: Jacinto margarita 6-05 Keep l 22:00: refrigerat Brian 00 ed. (Same as:Xalatan ) Opened bottle may be stored at room temperatur e for 6 weeks latanoprost No Notes: Jacinto margarita 6-05 Keep l 22:00: refrigerat Brian 00 ed. (Same as:Xalatan ) Opened bottle may be stored at room temperatur e for 6 weeks latanoprost No Notes: Jacinto margarita 6-05 Keep l 22:00: refrigerat [place] 00 ed. (Same as:Jayleenlatan ) Opened bottle may be stored at room temperatur e for 6 weeks Humalog No Notes: Memoria 6-05 (Same as: l 14:25: Humalog) [place] 00 Roll in palms of hands gently; Do not shake vigorously . WASTE: F/P - Black; E - Municipal Trash Bin Stable for 28 days at room temperatur e. Expires in days from ____Date Humalog No Notes: Memoria 6-05 (Same as: l 14:25: Humalog) Brian 00 Roll in palms of hands gently; Do not shake vigorously . WASTE: F/P - Black; E - [facility] Trash Bin Stable for 28 days at room temperatur e. Expires in days from ____Date Humalog 20200 No Notes: Memoria 6-05 (Same as: l 14:25: Humalog) [place] 00 Roll in palms of hands gently; Do not shake vigorously . WASTE: F/P - Black; E - [facility] Trash Bin Stable for 28 days at room temperatur e. Expires in days from ____Date Humalog 0 No Notes: Memoria 6-05 (Same as: l 14:25: Humalog) [place] 00 Roll in palms of hands gently; Do not shake vigorously . WASTE: F/P - Black; E - [facility] Trash Bin Stable for 28 days at room temperatur e. Expires in days from ____Date Humalog 0 No Notes: Memoria 6-05 (Same as: l 14:25: Humalog) [place] 00 Roll in palms of hands gently; Do not shake vigorously . WASTE: F/P - Black; E - [facility] Trash Bin Stable for 28 days at room temperatur e. Expires in days from ____Date Humalog No Notes: Memoria 6-05 (Same as: l 14:25: Humalog) Brian 00 Roll in palms of hands gently; Do not shake vigorously . WASTE: F/P - Black; E - [facility] Trash Bin Stable for 28 days at room temperatur e. Expires in days from ____Date Humalog No Notes: Memoria 6-05 (Same as: l 14:25: Humalog) [place] 00 Roll in palms of hands gently; Do not shake vigorously . WASTE: F/P - Black; E - [facility] Trash Bin Stable for 28 days at room temperatur e. Expires in days from ____Date Humalog No Notes: Memoria 6-05 (Same as: l 14:25: Humalog) Brian 00 Roll in palms of hands gently; Do not shake vigorously . WASTE: F/P - Black; E - [facility] Trash Bin Stable for 28 days at room temperatur e. Expires in days from ____Date Humalog No Notes: Memoria 6-05 (Same as: l 14:25: Humalog) [place] 00 Roll in palms of hands gently; Do not shake vigorously . WASTE: F/P - Black; E - Municipal Trash Bin Stable for 28 days at room temperatur e. Expires in days from ____Date Humalog No Notes: Memoria 6-05 (Same as: l 14:25: Humalog) [place] 00 Roll in palms of hands gently; Do not shake vigorously . WASTE: F/P - Black; E - Municipal Trash Bin Stable for 28 days at room temperatur e. Expires in days from ____Date Humalog No Notes: Memoria 6-05 (Same as: l 14:25: Humalog) [place] 00 Roll in palms of hands gently; Do not shake vigorously . WASTE: F/P - Black; E - [facility] Trash Bin Stable for 28 days at room temperatur e. Expires in days from ____Date Humalog No Notes: Memoria 6-05 (Same as: l 14:25: Humalog) [place] 00 Roll in palms of hands gently; Do not shake vigorously . WASTE: F/P - Black; E - Municipal Trash Bin Stable for 28 days at room temperatur e. Expires in days from ____Date Regular No Route: [facility]oria Insulin, 11-30 SUB-Q, l Human 100 14:00: Drug form: He rmann UNT/ML 00 SOLN, Injectable Q12H, Solution Dosing [Humulin R] Weight 103.665, kg, Start date: 12/01/19 9:00:00 CDT, Duration: 30 day, Stop date: 12/30/19 21:00:00 CDT SymlinPen No SymlinPen Mem oria 120 6-05 120, 60 l 14:00: microgram, [place] 00 Route: SUB-Q, Q12H, 12/01/19 9:00:00 CDT, Duration: 30 day, Stop date: 12/30/19 21:00:00 CDT Regular 2020-0 No Route: [facility]oria Insulin, 6-05 SUB-Q, l Human 100 14:00: Drug form: He rmann UNT/ML 00 SOLN, Injectable Q12H, Solution Dosing [Humulin R] Weight 103.665, kg, Start date: 12/01/19 9:00:00 CDT, Duration: 30 day, Stop date: 12/30/19 21:00:00 CDT SymlinPen 2020-0 No SymlinPen Mem oria 120 6-05 120, 60 l 14:00: microgram, [place] 00 Route: SUB-Q, Q12H, 12/01/19 9:00:00 CDT, Duration: 30 day, Stop date: 12/30/19 21:00:00 CDT Regular No Route: [facility]oria Insulin, 6-05 SUB-Q, l Human 100 14:00: Drug form: He rmann UNT/ML 00 SOLN, Injectable Q12H, Solution Dosing [Humulin R] Weight 103.665, kg, Start date: 12/01/19 9:00:00 CDT, Duration: 30 day, Stop date: 12/30/19 21:00:00 CDT SymlinPen 2019-0 No SymlinPen Mem oria 120 6-05 120, 60 l 14:00: microgram, Brian 00 Route: SUB-Q, Q12H, 12/01/19 9:00:00 CDT, Duration: 30 day, Stop date: 12/30/19 21:00:00 CDT Regular No Route: Memoria Insulin, 6-05 SUB-Q, l Human 100 14:00: Drug form: He rmann UNT/ML 00 SOLN, Injectable Q12H, Solution Dosing [Humulin R] Weight 103.665, kg, Start date: 12/01/19 9:00:00 CDT, Duration: 30 day, Stop date: 12/30/19 21:00:00 CDT SymlinPen 2019-0 No SymlinPen Mem oria 120 6-05 120, 60 l 14:00: microgram, [place] 00 Route: SUB-Q, Q12H, 12/01/19 9:00:00 CDT, Duration: 30 day, Stop date: 12/30/19 21:00:00 CDT Regular 2020-0 No Route: Memoria Insulin, 6-05 SUB-Q, l Human 100 14:00: Drug form: He rmann UNT/ML 00 SOLN, Injectable Q12H, Solution Dosing [Humulin R] Weight 103.665, kg, Start date: 12/01/19 9:00:00 CDT, Duration: 30 day, Stop date: 12/30/19 21:00:00 CDT SymlinPen 2020-0 No SymlinPen Mem oria 120 6-05 120, 60 l 14:00: microgram, [place] 00 Route: SUB-Q, Q12H, 12/01/19 9:00:00 CDT, Duration: 30 day, Stop date: 12/30/19 21:00:00 CDT Regular No Route: Memoria Insulin, 6-05 SUB-Q, l Human 100 14:00: Drug form: He rmann UNT/ML 00 SOLN, Injectable Q12H, Solution Dosing [Humulin R] Weight 103.665, kg, Start date: 12/01/19 9:00:00 CDT, Duration: 30 day, Stop date: 12/30/19 21:00:00 CDT SymlinPen 2019-0 No SymlinPen Mem oria 120 6-05 120, 60 l 14:00: microgram, Brian 00 Route: SUB-Q, Q12H, 12/01/19 9:00:00 CDT, Duration: 30 day, Stop date: 12/30/19 21:00:00 CDT Regular No Route: Memoria Insulin, 6-05 SUB-Q, l Human 100 14:00: Drug form: He rmann UNT/ML 00 SOLN, Injectable Q12H, Solution Dosing [Humulin R] Weight 103.665, kg, Start date: 12/01/19 9:00:00 CDT, Duration: 30 day, Stop date: 12/30/19 21:00:00 CDT SymlinPen 2019-0 No SymlinPen Mem oria 120 6-05 120, 60 l 14:00: microgram, [place] 00 Route: SUB-Q, Q12H, 12/01/19 9:00:00 CDT, Duration: 30 day, Stop date: 12/30/19 21:00:00 CDT Regular 2020-0 No Route: Memoria Insulin, 6-05 SUB-Q, l Human 100 14:00: Drug form: He rmann UNT/ML 00 SOLN, Injectable Q12H, Solution Dosing [Humulin R] Weight 103.665, kg, Start date: 12/01/19 9:00:00 CDT, Duration: 30 day, Stop date: 12/30/19 21:00:00 CDT SymlinPen 2020-0 No SymlinPen Mem oria 120 6-05 120, 60 l 14:00: microgram, [place] 00 Route: SUB-Q, Q12H, 12/01/19 9:00:00 CDT, Duration: 30 day, Stop date: 12/30/19 21:00:00 CDT Regular No Route: Memoria Insulin, 6-05 SUB-Q, l Human 100 14:00: Drug form: He rmann UNT/ML 00 SOLN, Injectable Q12H, Solution Dosing [Humulin R] Weight 103.665, kg, Start date: 12/01/19 9:00:00 CDT, Duration: 30 day, Stop date: 12/30/19 21:00:00 CDT SymlinPen 2019-0 No SymlinPen Mem oria 120 6-05 120, 60 l 14:00: microgram, Brian 00 Route: SUB-Q, Q12H, 12/01/19 9:00:00 CDT, Duration: 30 day, Stop date: 12/30/19 21:00:00 CDT Regular No Route: Memoria Insulin, 6-05 SUB-Q, l Human 100 14:00: Drug form: He rmann UNT/ML 00 SOLN, Injectable Q12H, Solution Dosing [Humulin R] Weight 103.665, kg, Start date: 12/01/19 9:00:00 CDT, Duration: 30 day, Stop date: 12/30/19 21:00:00 CDT SymlinPen 2019-0 No SymlinPen Mem oria 120 6-05 120, 60 l 14:00: microgram, [place] 00 Route: SUB-Q, Q12H, 12/01/19 9:00:00 CDT, Duration: 30 day, Stop date: 12/30/19 21:00:00 CDT Regular 2020-0 No Route: Memoria Insulin, 6-05 SUB-Q, l Human 100 14:00: Drug form: He rmann UNT/ML 00 SOLN, Injectable Q12H, Solution Dosing [Humulin R] Weight 103.665, kg, Start date: 12/01/19 9:00:00 CDT, Duration: 30 day, Stop date: 12/30/19 21:00:00 CDT SymlinPen 2020-0 No SymlinPen Mem oria 120 6-05 120, 60 l 14:00: microgram, Brian 00 Route: SUB-Q, Q12H, 12/01/19 9:00:00 CDT, Duration: 30 day, Stop date: 12/30/19 21:00:00 CDT Regular 0 No Route: Memoria Insulin, 6-05 SUB-Q, l Human 100 14:00: Drug form: He rmann UNT/ML 00 SOLN, Injectable Q12H, Solution Dosing [Humulin R] Weight 103.665, kg, Start date: 12/01/19 9:00:00 CDT, Duration: 30 day, Stop date: 12/30/19 21:00:00 CDT SymlinPen 2020-0 No SymlinPen Mem oria 120 6-05 120, 60 l 14:00: microgram, Brian 00 Route: SUB-Q, Q12H, 12/01/19 9:00:00 CDT, Duration: 30 day, Stop date: 12/30/19 21:00:00 CDT tramadol 2020-0 Yes 50 mg = 1 Jacinto margarita hydrochlori 6-05 tab, PO, l de 50 MG 13:43: Q6H, PRN Marika nn Oral Tablet 00 Pain, acute pain with cellulitis , X 7 day, # 28 tab, 0 Refill(s), Pharmacy: [facility] [id number] clindamycin 2020-0 Yes 300 mg = 1 Memoria 300 mg oral 6-05 cap, PO, l capsule 13:43: Q6H, X 10 Marika nn 00 day, # 40 cap, 0 Refill(s), Pharmacy: [facility] [address] senna 17 mg 2020-0 Yes 34 mg = 2 M emoria oral tablet 6-05 tab, PO, l 13:43: Daily, X [place] 00 10 day, # 20 tab, 0 Refill(s), Pharmacy: [place] [id number] tramadol 2020-0 Yes 50 mg = 1 Jacinto margarita hydrochlori 6-05 tab, PO, l de 50 MG 13:43: Q6H, PRN Marika nn Oral Tablet 00 Pain, acute pain with cellulitis , X 7 day, # 28 tab, 0 Refill(s), Pharmacy: [place] [id number] clindamycin 2020-0 Yes 300 mg = 1 Memoria 300 mg oral 6-05 cap, PO, l capsule 13:43: Q6H, X 10 Marika nn 00 day, # 40 cap, 0 Refill(s), Pharmacy: [place] [id number] senna 17 mg 2020-0 Yes 34 mg = 2 M emoria oral tablet 6-05 tab, PO, l 13:43: Daily, X [place] 00 10 day, # 20 tab, 0 Refill(s), Pharmacy: [place] [id number] tramadol 2020-0 Yes 50 mg = 1 Jacinto margarita hydrochlori 6-05 tab, PO, l de 50 MG 13:43: Q6H, PRN Marika nn Oral Tablet 00 Pain, acute pain with cellulitis , X 7 day, # 28 tab, 0 Refill(s), Pharmacy: [place] [id number] clindamycin 2020-0 Yes 300 mg = 1 Memoria 300 mg oral 6-05 cap, PO, l capsule 13:43: Q6H, X 10 Marika nn 00 day, # 40 cap, 0 Refill(s), Pharmacy: [place] [id number] senna 17 mg 2020-0 Yes 34 mg = 2 M emoria oral tablet 6-05 tab, PO, l 13:43: Daily, X Brian 00 10 day, # 20 tab, 0 Refill(s), Pharmacy: [place] [id number] tramadol 2020-0 Yes 50 mg = 1 Jacinto margarita hydrochlori 6-05 tab, PO, l de 50 MG 13:43: Q6H, PRN Marika nn Oral Tablet 00 Pain, acute pain with cellulitis , X 7 day, # 28 tab, 0 Refill(s), Pharmacy: [facility] [address] clindamycin 2020-0 Yes 300 mg = 1 Memoria 300 mg oral 6-05 cap, PO, l capsule 13:43: Q6H, X 10 Marika nn 00 day, # 40 cap, 0 Refill(s), Pharmacy: [facility] [address] senna 17 mg 2020-0 Yes 34 mg = 2 M emoria oral tablet 6-05 tab, PO, l 13:43: Daily, X Brian 00 10 day, # 20 tab, 0 Refill(s), Pharmacy: [facility] tramadol 2020-0 Yes 50 mg = 1 Jacinto margarita hydrochlori 6-05 tab, PO, l de 50 MG 13:43: Q6H, PRN Marika nn Oral Tablet 00 Pain, acute pain with cellulitis , X 7 day, # 28 tab, 0 Refill(s), Pharmacy: [facility] clindamycin 2020-0 Yes 300 mg = 1 Memoria 300 mg oral 6-05 cap, PO, l capsule 13:43: Q6H, X 10 Marika nn 00 day, # 40 cap, 0 Refill(s), Pharmacy: [facility] [address] senna 17 mg 2020-0 Yes 34 mg = 2 M emoria oral tablet 6-05 tab, PO, l 13:43: Daily, X [place] 10 day, # 20 tab, 0 Refill(s), Pharmacy: [facility] tramadol 2020-0 Yes 50 mg = 1 Jacinto margarita hydrochlori 6-05 tab, PO, l de 50 MG 13:43: Q6H, PRN Marika nn Oral Tablet 00 Pain, acute pain with cellulitis , X 7 day, # 28 tab, 0 Refill(s), Pharmacy: [facility] [address] clindamycin 2020-0 Yes 300 mg = 1 Memoria 300 mg oral 6-05 cap, PO, l capsule 13:43: Q6H, X 10 Marika nn 00 day, # 40 cap, 0 Refill(s), Pharmacy: [facility] [address] senna 17 mg 2020-0 Yes 34 mg = 2 M emoria oral tablet 6-05 tab, PO, l 13:43: Daily, X Brian 00 10 day, # 20 tab, 0 Refill(s), Pharmacy: [place] [id number] tramadol 2020-0 Yes 50 mg = 1 Jacinto margarita hydrochlori 6-05 tab, PO, l de 50 MG 13:43: Q6H, PRN Marika nn Oral Tablet 00 Pain, acute pain with cellulitis , X 7 day, # 28 tab, 0 Refill(s), Pharmacy: [place] [id number] clindamycin 2020-0 Yes 300 mg = 1 Memoria 300 mg oral 6-05 cap, PO, l capsule 13:43: Q6H, X 10 Marika nn 00 day, # 40 cap, 0 Refill(s), Pharmacy: [place] [id number] senna 17 mg 2020-0 Yes 34 mg = 2 M emoria oral tablet 6-05 tab, PO, l 13:43: Daily, X Brian 00 10 day, # 20 tab, 0 Refill(s), Pharmacy: [place] [id number] tramadol 2020-0 Yes 50 mg = 1 Jacinto margarita hydrochlori 6-05 tab, PO, l de 50 MG 13:43: Q6H, PRN Marika nn Oral Tablet 00 Pain, acute pain with cellulitis , X 7 day, # 28 tab, 0 Refill(s), Pharmacy: [place] [id number] clindamycin 2020-0 Yes 300 mg = 1 Memoria 300 mg oral 6-05 cap, PO, l capsule 13:43: Q6H, X 10 Marika nn 00 day, # 40 cap, 0 Refill(s), Pharmacy: [place] [address] senna 17 mg 2020-0 Yes 34 mg = 2 M emoria oral tablet 6-05 tab, PO, l 13:43: Daily, X [place] 00 10 day, # 20 tab, 0 Refill(s), Pharmacy: [place] [id number] tramadol 2020-0 Yes 50 mg = 1 Jacinto margarita hydrochlori 6-05 tab, PO, l de 50 MG 13:43: Q6H, PRN Marika nn Oral Tablet 00 Pain, acute pain with cellulitis , X 7 day, # 28 tab, 0 Refill(s), Pharmacy: [facility] [address] clindamycin 2020-0 Yes 300 mg = 1 Memoria 300 mg oral 6-05 cap, PO, l capsule 13:43: Q6H, X 10 Marika nn 00 day, # 40 cap, 0 Refill(s), Pharmacy: [facility] [address] senna 17 mg 2020-0 Yes 34 mg = 2 M emoria oral tablet 6-05 tab, PO, l 13:43: Daily, X Brian 00 10 day, # 20 tab, 0 Refill(s), Pharmacy: [facility] tramadol 2020-0 Yes 50 mg = 1 Jacinto margarita hydrochlori 6-05 tab, PO, l de 50 MG 13:43: Q6H, PRN Marika nn Oral Tablet 00 Pain, acute pain with cellulitis , X 7 day, # 28 tab, 0 Refill(s), Pharmacy: [facility] clindamycin 2020-0 Yes 300 mg = 1 Memoria 300 mg oral 6-05 cap, PO, l capsule 13:43: Q6H, X 10 Marika nn 00 day, # 40 cap, 0 Refill(s), [facility] [facility] senna 17 mg 2020-0 Yes 34 mg = 2 M emoria oral tablet 6-05 tab, PO, l 13:43: Daily, X Brian 10 day, # 20 tab, 0 Refill(s), Pharmacy: [facility] tramadol 2020-0 Yes 50 mg = 1 Jacinto margarita hydrochlori 6-05 tab, PO, l de 50 MG 13:43: Q6H, PRN Marika nn Oral Tablet 00 Pain, acute pain with cellulitis , X 7 day, # 28 tab, 0 Refill(s), Pharmacy: [facility] 350 clindamycin 2020-0 Yes 300 mg = 1 Memoria 300 mg oral 6-05 cap, PO, l capsule 13:43: Q6H, X 10 Marika nn 00 day, # 40 cap, 0 Refill(s), Pharmacy: [facility] 350 senna 17 mg 2020-0 Yes 34 mg = 2 M emoria oral tablet 6-05 tab, PO, l 13:43: Daily, X [place] 00 10 day, # 20 tab, 0 Refill(s), Pharmacy: [facility] 3509 tramadol 2020-0 Yes 50 mg = 1 Jacinto margarita hydrochlori 6-05 tab, PO, l de 50 MG 13:43: Q6H, PRN Marika nn Oral Tablet 00 Pain, acute pain with cellulitis , X 7 day, # 28 tab, 0 Refill(s), Pharmacy: [facility] 350 clindamycin 2020-0 Yes 300 mg = 1 Memoria 300 mg oral 6-05 cap, PO, l capsule 13:43: Q6H, X 10 Marika nn 00 day, # 40 cap, 0 Refill(s), Pharmacy: [facility] 350 senna 17 mg 2020-0 Yes 34 mg = 2 M emoria oral tablet 6-05 tab, PO, l 13:43: Daily, X Brian 00 10 day, # 20 tab, 0 Refill(s), Pharmacy: [facility] 3509 Alprazolam 2019-0 No Notes: Memor ia 0.25 MG 6-05 With food l Oral Tablet 12:43: or milk Her guzman 00 (Same as: Xanax) Nitroglycer No Notes: Jacinto margarita in 0.4 MG 6-05 (Same l Sublingual 12:43: as:Nitroqu H ermann Tablet 00 ick, Nitrostat) "Do Not Crush" Sublingual tablet Alprazolam 2019-0 No Notes: Memor ia 0.25 MG 6-05 With food l Oral Tablet 12:43: or milk Her guzman 00 (Same as: Xanax) Nitroglycer 2019-0 No Notes: Jacinto margarita in 0.4 MG 6-05 (Same l Sublingual 12:43: as:Nitroqu H ermann Tablet 00 ick, Nitrostat) "Do Not Crush" Sublingual tablet Alprazolam 2019-0 No Notes: Memor ia 0.25 MG 6-05 With food l Oral Tablet 12:43: or milk Her guzman 00 (Same as: Xanax) Nitroglycer 2019-0 No Notes: Jacinto margarita in 0.4 MG 6-05 (Same l Sublingual 12:43: as:Nitroqu H ermann Tablet 00 ick, Nitrostat) "Do Not Crush" Sublingual tablet Alprazolam 2020-0 No Notes: Memor ia 0.25 MG 6-05 With food l Oral Tablet 12:43: or milk Her guzman 00 (Same as: Xanax) Nitroglycer 2019-0 No Notes: Jacinto margarita in 0.4 MG 6-05 (Same l Sublingual 12:43: as:Nitroqu H ermann Tablet 00 ick, Nitrostat) "Do Not Crush" Sublingual tablet Alprazolam 2019-0 No Notes: Memor ia 0.25 MG 6-05 With food l Oral Tablet 12:43: or milk Her guzman 00 (Same as: Xanax) Nitroglycer 2019-0 No Notes: Jacinto margarita in 0.4 MG 6-05 (Same l Sublingual 12:43: as:Nitroqu H ermann Tablet 00 ick, Nitrostat) "Do Not Crush" Sublingual tablet Alprazolam 2019-0 No Notes: Memor ia 0.25 MG 6-05 With food l Oral Tablet 12:43: or milk Her guzman 00 (Same as: Xanax) Nitroglycer 2019-0 No Notes: Jacinto margarita in 0.4 MG 6-05 (Same l Sublingual 12:43: as:Nitroqu H ermann Tablet 00 ick, Nitrostat) "Do Not Crush" Sublingual tablet Alprazolam 2019-0 No Notes: Memor ia 0.25 MG 6-05 With food l Oral Tablet 12:43: or milk Her guzman 00 (Same as: Xanax) Nitroglycer 2019-0 No Notes: Jacinto margarita in 0.4 MG 6-05 (Same l Sublingual 12:43: as:Nitroqu H ermann Tablet 00 ick, Nitrostat) "Do Not Crush" Sublingual tablet Alprazolam 2020-0 No Notes: Memor ia 0.25 MG 6-05 With food l Oral Tablet 12:43: or milk Her guzman 00 (Same as: Xanax) Nitroglycer 2019-0 No Notes: Jacinto margarita in 0.4 MG 6-05 (Same l Sublingual 12:43: as:Nitroqu H ermann Tablet 00 ick, Nitrostat) "Do Not Crush" Sublingual tablet Alprazolam 2020-0 No Notes: Memor ia 0.25 MG 6-05 With food l Oral Tablet 12:43: or milk Her guzman 00 (Same as: Xanax) Nitroglycer 2020-0 No Notes: Jacinto margarita in 0.4 MG 6-05 (Same l Sublingual 12:43: as:Nitroqu H ermann Tablet 00 ick, Nitrostat) "Do Not Crush" Sublingual tablet Alprazolam 2020-0 No Notes: Memor ia 0.25 MG 6-05 With food l Oral Tablet 12:43: or milk Her guzman 00 (Same as: Xanax) Nitroglycer 2020-0 No Notes: Jacinto margarita in 0.4 MG 6-05 (Same l Sublingual 12:43: as:Nitroqu H ermann Tablet 00 ick, Nitrostat) "Do Not Crush" Sublingual tablet Alprazolam 2020-0 No Notes: Memor ia 0.25 MG 6-05 With food l Oral Tablet 12:43: or milk Her guzman 00 (Same as: Xanax) Nitroglycer 2019-0 No Notes: Jacinto margarita in 0.4 MG 6-05 (Same l Sublingual 12:43: as:Nitroqu H ermann Tablet 00 ick, Nitrostat) "Do Not Crush" Sublingual tablet Alprazolam 2020-0 No Notes: Memor ia 0.25 MG 6-05 With food l Oral Tablet 12:43: or milk Her guzman 00 (Same as: Xanax) Nitroglycer 2019-0 No Notes: Jacinto margarita in 0.4 MG 6-05 (Same l Sublingual 12:43: as:Nitroqu H ermann Tablet 00 ick, Nitrostat) "Do Not Crush" Sublingual tablet Insulin 2020-0 No Notes: Memoria Lispro 6-05 (Same as: l 04:10: Humalog) [place] 00 Roll in palms of hands gently; Do not shake vigorously . WASTE: F/P - Black; E - [facility] Stable for 28 days at room temperatur e. Expires in days from ____Date Insulin 2020-0 No Notes: Memoria Lispro 6-05 (Same as: l 04:10: Humalog) [place] 00 Roll in palms of hands gently; Do not shake vigorously . WASTE: F/P - Black; E - [facility] Trash [facility] Stable for 28 days at room temperatur e. Expires in days from ____Date Insulin 2020-0 No Notes: Memoria Lispro 6-05 (Same as: l 04:10: Humalog) Brian 00 Roll in palms of hands gently; Do not shake vigorously . WASTE: F/P - Black; E - [facility] Stable for 28 days at room temperatur e. Expires in days from ____Date Insulin 2020-0 No Notes: Memoria Lispro 6-05 (Same as: l 04:10: Humalog) Brian 00 Roll in palms of hands gently; Do not shake vigorously . WASTE: F/P - Black; E - [facility] Stable for 28 days at room temperatur e. Expires in days from ____Date Insulin 2020-0 No Notes: Memoria Lispro 6-05 (Same as: l 04:10: Humalog) Brian 00 Roll in palms of hands gently; Do not shake vigorously . WASTE: F/P - Black; E - [facility] Stable for 28 days at room temperatur e. Expires in days from ____Date Insulin 2020-0 No Notes: Memoria Lispro 6-05 (Same as: l 04:10: Humalog) [place] 00 Roll in palms of hands gently; Do not shake vigorously . WASTE: F/P - Black; E - [facility] Stable for 28 days at room temperatur e. Expires in days from ____Date Insulin 2020-0 No Notes: Memoria Lispro 6-05 (Same as: l 04:10: Humalog) [place] 00 Roll in palms of hands gently; Do not shake vigorously . WASTE: F/P - Black; E - [facility] Stable for 28 days at room temperatur e. Expires in days from ____Date Insulin 2020-0 No Notes: Memoria Lispro 6-05 (Same as: l 04:10: Humalog) Brian 00 Roll in palms of hands gently; Do not shake vigorously . WASTE: F/P - Black; E - [facility] Tr[facility] Stable for 28 days at room temperatur e. Expires in days from ____Date Insulin 2020-0 No Notes: Memoria Lispro 6-05 (Same as: l 04:10: Humalog) Brian 00 Roll in palms of hands gently; Do not shake vigorously . WASTE: F/P - Black; E - [facility] Trash [facility] Stable for 28 days at room temperatur e. Expires in days from ____Date Insulin 2020-0 No Notes: Memoria Lispro 6-05 (Same as: l 04:10: Humalog) Brian 00 Roll in palms of hands gently; Do not shake vigorously . WASTE: F/P - Black; E - [facility] Stable for 28 days at room temperatur e. Expires in days from ____Date Insulin 2020-0 No Notes: Memoria Lispro 6-05 (Same as: l 04:10: Humalog) Brian 00 Roll in palms of hands gently; Do not shake vigorously . WASTE: F/P - Black; E - [facility] Trash [facility] Stable for 28 days at room temperatur e. Expires in days from ____Date Insulin 2020-0 No Notes: Memoria Lispro 6-05 (Same as: l 04:10: Humalog) Brian 00 Roll in palms of hands gently; Do not shake vigorously . WASTE: F/P - Black; E - [facility] Trash [facility] Stable for 28 days at room temperatur e. Expires in days from ____Date Clindamycin 2020-0 No 600 mg, 50 Memoria 6-05 mL, Route: l 02:00: IVPB, Drug [place] 00 form: INJ, ABXQ8H, Dosing Weight 96.364, kg, Start date: 11/30/19 21:00:00 CDT, Duration: 7 day, Stop date: 12/07/19 13:00:00 CDT, ABX Indication : Skin/Soft Tissue Infection, 0 Clindamycin 2020-0 No 600 mg, 50 Memoria 6-05 mL, Route: l 02:00: IVPB, Drug Brian 00 form: INJ, ABXQ8H, Dosing Weight 96.364, kg, Start date: 11/30/19 21:00:00 CDT, Duration: 7 day, Stop date: 12/07/19 13:00:00 CDT, ABX Indication : Skin/Soft Tissue Infection, 0 Clindamycin 2020-0 No 600 mg, 50 Memoria 6-05 mL, Route: l 02:00: IVPB, Drug Brian 00 form: INJ, ABXQ8H, Dosing Weight 96.364, kg, Start date: 11/30/19 21:00:00 CDT, Duration: 7 day, Stop date: 12/07/19 13:00:00 CDT, ABX Indication : Skin/Soft Tissue Infection, 0 Clindamycin 2020-0 No 600 mg, 50 Memoria 6-05 mL, Route: l 02:00: IVPB, Drug Brian 00 form: INJ, ABXQ8H, Dosing Weight 96.364, kg, Start date: 11/30/19 21:00:00 CDT, Duration: 7 day, Stop date: 12/07/19 13:00:00 CDT, ABX Indication : Skin/Soft Tissue Infection, 0 Clindamycin 2020-0 No 600 mg, 50 Memoria 6-05 mL, Route: l 02:00: IVPB, Drug Brian 00 form: INJ, ABXQ8H, Dosing Weight 96.364, kg, Start date: 11/30/19 21:00:00 CDT, Duration: 7 day, Stop date: 12/07/19 13:00:00 CDT, ABX Indication : Skin/Soft Tissue Infection, 0 Clindamycin 2020-0 No 600 mg, 50 Memoria 6-05 mL, Route: l 02:00: IVPB, Drug [place] 00 form: INJ, ABXQ8H, Dosing Weight 96.364, kg, Start date: 11/30/19 21:00:00 CDT, Duration: 7 day, Stop date: 12/07/19 13:00:00 CDT, ABX Indication : Skin/Soft Tissue Infection, 0 Clindamycin 2020-0 No 600 mg, 50 Memoria 6-05 mL, Route: l 02:00: IVPB, Drug [place] 00 form: INJ, ABXQ8H, Dosing Weight 96.364, kg, Start date: 11/30/19 21:00:00 CDT, Duration: 7 day, Stop date: 12/07/19 13:00:00 CDT, ABX Indication : Skin/Soft Tissue Infection, 0 Clindamycin 2020-0 No 600 mg, 50 Memoria 6-05 mL, Route: l 02:00: IVPB, Drug [place] form: INJ, ABXQ8H, Dosing Weight 96.364, kg, Start date: 11/30/19 21:00:00 CDT, Duration: 7 day, Stop date: 12/07/19 13:00:00 CDT, ABX Indication : Skin/Soft Tissue Infection, 0 Clindamycin 2020-0 No 600 mg, 50 Memoria 6-05 mL, Route: l 02:00: IVPB, Drug Brian form: INJ, ABXQ8H, Dosing Weight 96.364, kg, Start date: 11/30/19 21:00:00 CDT, Duration: 7 day, Stop date: 12/07/19 13:00:00 CDT, ABX Indication : Skin/Soft Tissue Infection, 0 Clindamycin 2020-0 No 600 mg, 50 Memoria 6-05 mL, Route: l 02:00: IVPB, Drug [place] 00 form: INJ, ABXQ8H, Dosing Weight 96.364, kg, Start date: 11/30/19 21:00:00 CDT, Duration: 7 day, Stop date: 12/07/19 13:00:00 CDT, ABX Indication : Skin/Soft Tissue Infection, 0 Clindamycin 2020-0 No 600 mg, 50 Memoria 6-05 mL, Route: l 02:00: IVPB, Drug Brian 00 form: INJ, ABXQ8H, Dosing Weight 96.364, kg, Start date: 11/30/19 21:00:00 CDT, Duration: 7 day, Stop date: 12/07/19 13:00:00 CDT, ABX Indication : Skin/Soft Tissue Infection, 0 Clindamycin 2020-0 No 600 mg, 50 Memoria 6-05 mL, Route: l 02:00: IVPB, Drug Brian 00 form: INJ, ABXQ8H, Dosing Weight 96.364, kg, Start date: 11/30/19 21:00:00 CDT, Duration: 7 day, Stop date: 12/07/19 13:00:00 CDT, ABX Indication : Skin/Soft Tissue Infection, 0 Regular 2020-0 Yes 40 units, Memor ia Insulin, 6-04 SUB-Q, l Human 100 23:09: Q12H, 0 Marika nn UNT/ML 00 Refill(s) Injectable Solution [Humulin R] SymlinPen 2020-0 Yes 60 Memoria 120 6-04 microgram, l 23:09: SUB-Q, Brian 00 Q12H, 0 Refill(s) Rosuvastati 2020-0 Yes 40 mg = 1 M emoria n calcium 6-04 tab, PO, l 40 MG Oral 23:09: Bedtime, # H ermann Tablet 00 30 tab, 0 [Crestor] Refill(s) NIFEdipine 2020-0 Yes 60 mg = 1 Me moria 60 mg oral 6-04 tab, PO, l tablet, 23:09: Bedtime, 0 Herm sarah extended 00 Refill(s) release carvedilol 2020-0 Yes 3.125 mg = M emoria 3.125 mg 6-04 1 tab, PO, l oral tablet 23:09: Bedtime, 0 Brian 00 Refill(s) irbesartan 2020-0 Yes 150 mg = 1 M emoria 150 mg oral 6-04 tab, PO, l tablet 23:09: Bedtime, # Marika nn 00 30 tab, 0 Refill(s) Vitamin D3 2020-0 Yes 50,000 Memor ia 50,000 intl 6-04 IntlUnit = l units oral 23:09: 1 cap, PO, H ermann capsule 00 qWeek, # 12 cap, 0 Refill(s) Furosemide 2020-0 Yes See Memoria 20 MG Oral 6-04 Instructio l Tablet 23:09: ns, 1 tab Cody n 00 PO bedtime 4 times per week, 0 Refill(s) Potassium 2020-0 Yes See Memoria Chloride 6-04 Instructio l 23:09: ns, 10 mEq [place] 00 PO bedtime 4 times a week, 0 Refill(s) latanoprost 2020-0 Yes 1 drop, Mem oria 6-04 BOTH EYES, l 23:09: QPM, 0 [place] 00 Refill(s) Methocarbam 2020-0 No 0 Memori a ol -04 Refill(s) l 23:09: [place] 00 methocarbam 2019-0 Yes 500 mg = 1 Memoria ol 500 mg 6- tab, PO, l oral tablet 23:09: Bedtime, He rmann 00 PRN Headache 6-10, 0 Refill(s) Alprazolam 2019-0 Yes 0.25 mg = Me moria 0.25 MG -04 1 tab, PO, l Oral Tablet 23:09: Daily, PRN Brian 00 anxiety, stress, # 20 tab, 0 Refill(s) Nitroglycer 2019-0 Yes 0.4 mg = 1 Memoria in 0.4 MG -04 tab, SL, l Sublingual 23:09: Q5Min, PRN H ermann Tablet 00 Chest pain, Give up to 3 doses. Call 911 if pain persists., # 100 tab, 0 Refill(s) Regular 2020-0 Yes 40 units, Memor ia Insulin, 6-04 SUB-Q, l Human 100 23:09: Q12H, 0 Marika nn UNT/ML 00 Refill(s) Injectable Solution [Humulin R] SymlinPen 2020-0 Yes 60 Memoria 120 6-04 microgram, l 23:09: SUB-Q, Brian 00 Q12H, 0 Refill(s) Rosuvastati 2019-0 Yes 40 mg = 1 M emoria n calcium 6-04 tab, PO, l 40 MG Oral 23:09: Bedtime, # H ermann Tablet 00 30 tab, 0 [Crestor] Refill(s) NIFEdipine 2019-0 Yes 60 mg = 1 Me moria 60 mg oral 6-04 tab, PO, l tablet, 23:09: Bedtime, 0 Herm sarah extended 00 Refill(s) release carvedilol 2020-0 Yes 3.125 mg = M emoria 3.125 mg 6-04 1 tab, PO, l oral tablet 23:09: Bedtime, 0 [place] 00 Refill(s) irbesartan 2020-0 Yes 150 mg = 1 M emoria 150 mg oral 6-04 tab, PO, l tablet 23:09: Bedtime, # Marika nn 00 30 tab, 0 Refill(s) Vitamin D3 2020-0 Yes 50,000 Memor ia 50,000 intl 6-04 IntlUnit = l units oral 23:09: 1 cap, PO, H ermann capsule 00 qWeek, # 12 cap, 0 Refill(s) Furosemide 2020-0 Yes See Memoria 20 MG Oral 6-04 Instructio l Tablet 23:09: ns, 1 tab Cody n 00 PO bedtime 4 times per week, 0 Refill(s) Potassium 2020-0 Yes See Memoria Chloride 6-04 Instructio l 23:09: ns, 10 mEq [place] 00 PO bedtime 4 times a week, 0 Refill(s) latanoprost 2020-0 Yes 1 drop, Mem oria 6-04 BOTH EYES, l 23:09: QPM, 0 Brian 00 Refill(s) Methocarbam 2020-0 No 0 Memori a ol 6-04 Refill(s) l 23:09: Brian 00 methocarbam 2020-0 Yes 500 mg = 1 Memoria ol 500 mg 6-04 tab, PO, l oral tablet 23:09: Bedtime, He rmann 00 PRN Headache 6-10, 0 Refill(s) Alprazolam 2020-0 Yes 0.25 mg = Me moria 0.25 MG 6-04 1 tab, PO, l Oral Tablet 23:09: Daily, PRN Brian 00 anxiety, stress, # 20 tab, 0 Refill(s) Nitroglycer 2020-0 Yes 0.4 mg = 1 Memoria in 0.4 MG 6-04 tab, SL, l Sublingual 23:09: Q5Min, PRN H ermann Tablet 00 Chest pain, Give up to 3 doses. Call 911 if pain persists., # 100 tab, 0 Refill(s) Regular 2020-0 Yes 40 units, Memor ia Insulin, 6-04 SUB-Q, l Human 100 23:09: Q12H, 0 Marika nn UNT/ML 00 Refill(s) Injectable Solution [Humulin R] SymlinPen 2020-0 Yes 60 Memoria 120 6-04 microgram, l 23:09: SUB-Q, [place] 00 Q12H, 0 Refill(s) Rosuvastati 2020-0 Yes 40 mg = 1 M emoria n calcium 6-04 tab, PO, l 40 MG Oral 23:09: Bedtime, # H ermann Tablet 00 30 tab, 0 [Crestor] Refill(s) NIFEdipine 2020-0 Yes 60 mg = 1 Me moria 60 mg oral 6-04 tab, PO, l tablet, 23:09: Bedtime, 0 Herm sarah extended 00 Refill(s) release carvedilol 2020-0 Yes 3.125 mg = M emoria 3.125 mg 6-04 1 tab, PO, l oral tablet 23:09: Bedtime, 0 Brian 00 Refill(s) irbesartan 2020-0 Yes 150 mg = 1 M emoria 150 mg oral 6-04 tab, PO, l tablet 23:09: Bedtime, # Marika nn 00 30 tab, 0 Refill(s) Vitamin D3 2020-0 Yes 50,000 Memor ia 50,000 intl 6-04 IntlUnit = l units oral 23:09: 1 cap, PO, H ermann capsule 00 qWeek, # 12 cap, 0 Refill(s) Furosemide 2020-0 Yes See Memoria 20 MG Oral 6-04 Instructio l Tablet 23:09: ns, 1 tab Cody n 00 PO bedtime 4 times per week, 0 Refill(s) Potassium 2020-0 Yes See Memoria Chloride 6-04 Instructio l 23:09: ns, 10 mEq [place] 00 PO bedtime 4 times a week, 0 Refill(s) latanoprost 2020-0 Yes 1 drop, Mem oria 6-04 BOTH EYES, l 23:09: QPM, 0 [place] 00 Refill(s) Methocarbam 2020-0 No 0 Memori a ol 6-04 Refill(s) l 23:09: [place] 00 methocarbam 2020-0 Yes 500 mg = 1 Memoria ol 500 mg 6-04 tab, PO, l oral tablet 23:09: Bedtime, He rmann 00 PRN Headache 6-10, 0 Refill(s) Alprazolam 2020-0 Yes 0.25 mg = Me moria 0.25 MG 6-04 1 tab, PO, l Oral Tablet 23:09: Daily, PRN [place] 00 anxiety, stress, # 20 tab, 0 Refill(s) Nitroglycer 2020-0 Yes 0.4 mg = 1 Memoria in 0.4 MG 6-04 tab, SL, l Sublingual 23:09: Q5Min, PRN H ermann Tablet 00 Chest pain, Give up to 3 doses. Call 911 if pain persists., # 100 tab, 0 Refill(s) Regular 2020-0 Yes 40 units, Memor ia Insulin, 6-04 SUB-Q, l Human 100 23:09: Q12H, 0 Marika nn UNT/ML 00 Refill(s) Injectable Solution [Humulin R] SymlinPen 2019-0 Yes 60 Memoria 120 6-04 microgram, l 23:09: SUB-Q, [place] 00 Q12H, 0 Refill(s) Rosuvastati 2019-0 Yes 40 mg = 1 M emoria n calcium 6-04 tab, PO, l 40 MG Oral 23:09: Bedtime, # H ermann Tablet 00 30 tab, 0 [Crestor] Refill(s) NIFEdipine 2020-0 Yes 60 mg = 1 Me moria 60 mg oral 6-04 tab, PO, l tablet, 23:09: Bedtime, 0 Herm sarah extended 00 Refill(s) release carvedilol 2020-0 Yes 3.125 mg = M emoria 3.125 mg 6-04 1 tab, PO, l oral tablet 23:09: Bedtime, 0 [place] 00 Refill(s) irbesartan 2020-0 Yes 150 mg = 1 M emoria 150 mg oral 6-04 tab, PO, l tablet 23:09: Bedtime, # Marika nn 00 30 tab, 0 Refill(s) Vitamin D3 2020-0 Yes 50,000 Memor ia 50,000 intl 6-04 IntlUnit = l units oral 23:09: 1 cap, PO, H ermann capsule 00 qWeek, # 12 cap, 0 Refill(s) Furosemide 2020-0 Yes See Memoria 20 MG Oral - Instructio l Tablet 23:09: ns, 1 tab Cody n 00 PO bedtime 4 times per week, 0 Refill(s) Potassium 2020-0 Yes See Memoria Chloride -04 Instructio l 23:09: ns, 10 mEq Brian 00 PO bedtime 4 times a week, 0 Refill(s) latanoprost 2020-0 Yes 1 drop, Mem oria -04 BOTH EYES, l 23:09: QPM, 0 [place] 00 Refill(s) Methocarbam 2020-0 No 0 Memori a ol 11-29 Refill(s) l 23:09: Brian 00 methocarbam 2019-0 Yes 500 mg = 1 Memoria ol 500 mg 6- tab, PO, l oral tablet 23:09: Bedtime, He rmann 00 PRN Headache 6-10, 0 Refill(s) Alprazolam 2019-0 Yes 0.25 mg = Me moria 0.25 MG -04 1 tab, PO, l Oral Tablet 23:09: Daily, PRN [place] 00 anxiety, stress, # 20 tab, 0 Refill(s) Nitroglycer 2019-0 Yes 0.4 mg = 1 Memoria in 0.4 MG - tab, SL, l Sublingual 23:09: Q5Min, PRN H ermann Tablet 00 Chest pain, Give up to 3 doses. Call 911 if pain persists., # 100 tab, 0 Refill(s) Regular 2020-0 Yes 40 units, Memor ia Insulin, 6-04 SUB-Q, l Human 100 23:09: Q12H, 0 Marika nn UNT/ML 00 Refill(s) Injectable Solution [Humulin R] SymlinPen 2020-0 Yes 60 Memoria 120 6-04 microgram, l 23:09: SUB-Q, [place] 00 Q12H, 0 Refill(s) Rosuvastati 2019-0 Yes 40 mg = 1 M emoria n calcium 6-04 tab, PO, l 40 MG Oral 23:09: Bedtime, # H ermann Tablet 00 30 tab, 0 [Crestor] Refill(s) NIFEdipine 2019-0 Yes 60 mg = 1 Me moria 60 mg oral 6-04 tab, PO, l tablet, 23:09: Bedtime, 0 Herm sarah extended 00 Refill(s) release carvedilol 2020-0 Yes 3.125 mg = M emoria 3.125 mg 6-04 1 tab, PO, l oral tablet 23:09: Bedtime, 0 Brian 00 Refill(s) irbesartan 2020-0 Yes 150 mg = 1 M emoria 150 mg oral 6-04 tab, PO, l tablet 23:09: Bedtime, # Marika nn 00 30 tab, 0 Refill(s) Vitamin D3 2020-0 Yes 50,000 Memor ia 50,000 intl 6-04 IntlUnit = l units oral 23:09: 1 cap, PO, H ermann capsule 00 qWeek, # 12 cap, 0 Refill(s) Furosemide 2020-0 Yes See Memoria 20 MG Oral 604 Instructio l Tablet 23:09: ns, 1 tab Cody n 00 PO bedtime 4 times per week, 0 Refill(s) Potassium 2020-0 Yes See Memoria Chloride 604 Instructio l 23:09: ns, 10 mEq [place] 00 PO bedtime 4 times a week, 0 Refill(s) latanoprost 2020-0 Yes 1 drop, Mem oria 604 BOTH EYES, l 23:09: QPM, 0 [place] 00 Refill(s) Methocarbam 2020-0 No 0 Memori a ol 6-04 Refill(s) l 23:09: Brian 00 methocarbam 2020-0 Yes 500 mg = 1 Memoria ol 500 mg -04 tab, PO, l oral tablet 23:09: Bedtime, He rmann 00 PRN Headache 6-10, 0 Refill(s) Alprazolam 2020-0 Yes 0.25 mg = Me moria 0.25 MG 6-04 1 tab, PO, l Oral Tablet 23:09: Daily, PRN [place] 00 anxiety, stress, # 20 tab, 0 Refill(s) Nitroglycer 2020-0 Yes 0.4 mg = 1 Memoria in 0.4 MG 6-04 tab, SL, l Sublingual 23:09: Q5Min, PRN H ermann Tablet 00 Chest pain, Give up to 3 doses. Call 911 if pain persists., # 100 tab, 0 Refill(s) Regular 2020-0 Yes 40 units, Memor ia Insulin, 6-04 SUB-Q, l Human 100 23:09: Q12H, 0 Marika nn UNT/ML 00 Refill(s) Injectable Solution [Humulin R] SymlinPen 2020-0 Yes 60 Memoria 120 6-04 microgram, l 23:09: SUB-Q, Brian 00 Q12H, 0 Refill(s) Rosuvastati 2020-0 Yes 40 mg = 1 M emoria n calcium 6-04 tab, PO, l 40 MG Oral 23:09: Bedtime, # H ermann Tablet 00 30 tab, 0 [Crestor] Refill(s) NIFEdipine 2020-0 Yes 60 mg = 1 Me moria 60 mg oral 6-04 tab, PO, l tablet, 23:09: Bedtime, 0 Herm sarah extended 00 Refill(s) release carvedilol 2020-0 Yes 3.125 mg = M emoria 3.125 mg 6-04 1 tab, PO, l oral tablet 23:09: Bedtime, 0 [place] 00 Refill(s) irbesartan 2020-0 Yes 150 mg = 1 M emoria 150 mg oral 6-04 tab, PO, l tablet 23:09: Bedtime, # Marika nn 00 30 tab, 0 Refill(s) Vitamin D3 2020-0 Yes 50,000 Memor ia 50,000 intl 6-04 IntlUnit = l units oral 23:09: 1 cap, PO, H ermann capsule 00 qWeek, # 12 cap, 0 Refill(s) Furosemide 2020-0 Yes See Memoria 20 MG Oral 6-04 Instructio l Tablet 23:09: ns, 1 tab Cody n 00 PO bedtime 4 times per week, 0 Refill(s) Potassium 2020-0 Yes See Memoria Chloride 6-04 Instructio l 23:09: ns, 10 mEq [place] 00 PO bedtime 4 times a week, 0 Refill(s) latanoprost 2020-0 Yes 1 drop, Mem oria 6-04 BOTH EYES, l 23:09: QPM, 0 Brian 00 Refill(s) Methocarbam 2020-0 No 0 Memori a ol 6-04 Refill(s) l 23:09: [place] 00 methocarbam 2020-0 Yes 500 mg = 1 Memoria ol 500 mg 6-04 tab, PO, l oral tablet 23:09: Bedtime, He rmann 00 PRN Headache 6-10, 0 Refill(s) Alprazolam 2019-0 Yes 0.25 mg = Me moria 0.25 MG 6-04 1 tab, PO, l Oral Tablet 23:09: Daily, PRN Brian 00 anxiety, stress, # 20 tab, 0 Refill(s) Nitroglycer 2019-0 Yes 0.4 mg = 1 Memoria in 0.4 MG 6-04 tab, SL, l Sublingual 23:09: Q5Min, PRN H ermann Tablet 00 Chest pain, Give up to 3 doses. Call 911 if pain persists., # 100 tab, 0 Refill(s) Regular 2019-0 Yes 40 units, Memor ia Insulin, 6-04 SUB-Q, l Human 100 23:09: Q12H, 0 Marika nn UNT/ML 00 Refill(s) Injectable Solution [Humulin R] SymlinPen 2019-0 Yes 60 Memoria 120 6-04 microgram, l 23:09: SUB-Q, [place] 00 Q12H, 0 Refill(s) Rosuvastati 2019-0 Yes 40 mg = 1 M emoria n calcium 6-04 tab, PO, l 40 MG Oral 23:09: Bedtime, # H ermann Tablet 00 30 tab, 0 [Crestor] Refill(s) NIFEdipine 2019-0 Yes 60 mg = 1 Me moria 60 mg oral 6-04 tab, PO, l tablet, 23:09: Bedtime, 0 Herm sarah extended 00 Refill(s) release carvedilol 2019-0 Yes [...] 2020-0 Yes See Memoria 20 MG Oral - Instructio l Tablet 23:09: ns, 1 tab Cody n 00 PO bedtime 4 times per week, 0 Refill(s) Potassium 2020-0 Yes See Memoria Chloride -04 Instructio l 23:09: ns, 10 mEq [place] 00 PO bedtime 4 times a week, 0 Refill(s) latanoprost 2020-0 Yes 1 drop, Mem oria 04 BOTH EYES, l 23:09: QPM, 0 [place] 00 Refill(s) Methocarbam 2020-0 No 0 Memori a ol - Refill(s) l 23:09: Brian 00 methocarbam 2019-0 Yes 500 mg = 1 Memoria ol 500 mg - tab, PO, l oral tablet 23:09: Bedtime, He rmann 00 PRN Headache 6-10, 0 Refill(s) Alprazolam 2019-0 Yes 0.25 mg = Me moria 0.25 MG -04 1 tab, PO, l Oral Tablet 23:09: Daily, PRN Brian 00 anxiety, stress, # 20 tab, 0 Refill(s) Nitroglycer 2019-0 Yes 0.4 mg = 1 Memoria in 0.4 MG - tab, SL, l Sublingual 23:09: Q5Min, PRN H ermann Tablet 00 Chest pain, Give up to 3 doses. Call 911 if pain persists., # 100 tab, 0 Refill(s) Regular 2019-0 Yes 40 units, Memor ia Insulin, 6-04 SUB-Q, l Human 100 23:09: Q12H, 0 Marika nn UNT/ML 00 Refill(s) Injectable Solution [Humulin R] SymlinPen 2019-0 Yes 60 Memoria 120 6-04 microgram, l 23:09: SUB-Q, [place] 00 Q12H, 0 Refill(s) Rosuvastati 2019-0 Yes 40 mg = 1 M emoria n calcium 6-04 tab, PO, l 40 MG Oral 23:09: Bedtime, # H ermann Tablet 00 30 tab, 0 [Crestor] Refill(s) NIFEdipine 2020-0 Yes 60 mg = 1 Me moria 60 mg oral 6-04 tab, PO, l tablet, 23:09: Bedtime, 0 Herm sarah extended 00 Refill(s) release carvedilol 2020-0 Yes 3.125 mg = M emoria 3.125 mg 6-04 1 tab, PO, l oral tablet 23:09: Bedtime, 0 Brian 00 Refill(s) irbesartan 2020-0 Yes 150 mg = 1 M emoria 150 mg oral 6-04 tab, PO, l tablet 23:09: Bedtime, # Marika nn 00 30 tab, 0 Refill(s) Vitamin D3 2020-0 Yes 50,000 Memor ia 50,000 intl 6-04 IntlUnit = l units oral 23:09: 1 cap, PO, H ermann capsule 00 qWeek, # 12 cap, 0 Refill(s) Furosemide 2020-0 Yes See Memoria 20 MG Oral 6-04 Instructio l Tablet 23:09: ns, 1 tab Cody n 00 PO bedtime 4 times per week, 0 Refill(s) Potassium 2020-0 Yes See Memoria Chloride 6-04 Instructio l 23:09: ns, 10 mEq [place] 00 PO bedtime 4 times a week, 0 Refill(s) latanoprost 2020-0 Yes 1 drop, Mem oria 6-04 BOTH EYES, l 23:09: QPM, 0 [place] 00 Refill(s) Methocarbam 2020-0 No 0 Memori a ol 6-04 Refill(s) l 23:09: [place] 00 methocarbam 2020-0 Yes 500 mg = 1 Memoria ol 500 mg 6-04 tab, PO, l oral tablet 23:09: Bedtime, He rmann 00 PRN Headache 6-10, 0 Refill(s) Alprazolam 2020-0 Yes 0.25 mg = Me moria 0.25 MG 6-04 1 tab, PO, l Oral Tablet 23:09: Daily, PRN [place] 00 anxiety, stress, # 20 tab, 0 Refill(s) Nitroglycer 2020-0 Yes 0.4 mg = 1 Memoria in 0.4 MG 6-04 tab, SL, l Sublingual 23:09: Q5Min, PRN H ermann Tablet 00 Chest pain, Give up to 3 doses. Call 911 if pain persists., # 100 tab, 0 Refill(s) Regular 2020-0 Yes 40 units, Memor ia Insulin, 6-04 SUB-Q, l Human 100 23:09: Q12H, 0 Marika nn UNT/ML 00 Refill(s) Injectable Solution [Humulin R] SymlinPen 2020-0 Yes 60 Memoria 120 6-04 microgram, l 23:09: SUB-Q, Brian 00 Q12H, 0 Refill(s) Rosuvastati 2020-0 Yes 40 mg = 1 M emoria n calcium 6-04 tab, PO, l 40 MG Oral 23:09: Bedtime, # H ermann Tablet 00 30 tab, 0 [Crestor] Refill(s) NIFEdipine 2020-0 Yes 60 mg = 1 Me moria 60 mg oral 6-04 tab, PO, l tablet, 23:09: Bedtime, 0 Herm sarah extended 00 Refill(s) release carvedilol 2020-0 Yes 3.125 mg = M emoria 3.125 mg 6-04 1 tab, PO, l oral tablet 23:09: Bedtime, 0 Brian 00 Refill(s) irbesartan 2020-0 Yes 150 mg = 1 M emoria 150 mg oral 6-04 tab, PO, l tablet 23:09: Bedtime, # Marika nn 00 30 tab, 0 Refill(s) Vitamin D3 2020-0 Yes 50,000 Memor ia 50,000 intl - IntlUnit = l units oral 23:09: 1 cap, PO, H ermann capsule 00 qWeek, # 12 cap, 0 Refill(s) Furosemide 2020-0 Yes See Memoria 20 MG Oral 6-04 Instructio l Tablet 23:09: ns, 1 tab Cody n 00 PO bedtime 4 times per week, 0 Refill(s) Potassium 2020-0 Yes See Memoria Chloride 6-04 Instructio l 23:09: ns, 10 mEq [place] 00 PO bedtime 4 times a week, 0 Refill(s) latanoprost 2020-0 Yes 1 drop, Mem oria 6-04 BOTH EYES, l 23:09: QPM, 0 Brian 00 Refill(s) Methocarbam 2020-0 No 0 Memori a ol 6-04 Refill(s) l 23:09: [place] 00 methocarbam 2020-0 Yes 500 mg = 1 Memoria ol 500 mg 6-04 tab, PO, l oral tablet 23:09: Bedtime, He rmann 00 PRN Headache 6-10, 0 Refill(s) Alprazolam 2020-0 Yes 0.25 mg = Me moria 0.25 MG 6-04 1 tab, PO, l Oral Tablet 23:09: Daily, PRN Brian 00 anxiety, stress, # 20 tab, 0 Refill(s) Nitroglycer 2020-0 Yes 0.4 mg = 1 Memoria in 0.4 MG 6-04 tab, SL, l Sublingual 23:09: Q5Min, PRN H ermann Tablet 00 Chest pain, Give up to 3 doses. Call 911 if pain persists., # 100 tab, 0 Refill(s) Regular 2019-0 Yes 40 units, Memor ia Insulin, 6-04 SUB-Q, l Human 100 23:09: Q12H, 0 Marika nn UNT/ML 00 Refill(s) Injectable Solution [Humulin R] SymlinPen 0 Yes 60 Memoria 120 6-04 microgram, l 23:09: SUB-Q, [place] 00 Q12H, 0 Refill(s) Rosuvastati 2019-0 Yes 40 mg = 1 M emoria n calcium 6-04 tab, PO, l 40 MG Oral 23:09: Bedtime, # H ermann Tablet 00 30 tab, 0 [Crestor] Refill(s) NIFEdipine 2019-0 Yes 60 mg = 1 Me moria 60 mg oral 6-04 tab, PO, l tablet, 23:09: Bedtime, 0 Herm sarah extended 00 Refill(s) release carvedilol 2019-0 Yes [...] 2020-0 Yes See Memoria 20 MG Oral 6-04 Instructio l Tablet 23:09: ns, 1 tab Cody n 00 PO bedtime 4 times per week, 0 Refill(s) Potassium 2020-0 Yes See Memoria Chloride -04 Instructio l 23:09: ns, 10 mEq Brian 00 PO bedtime 4 times a week, 0 Refill(s) latanoprost 2020-0 Yes 1 drop, Mem oria -04 BOTH EYES, l 23:09: QPM, 0 [place] 00 Refill(s) Methocarbam 2020-0 No 0 Memori a ol -04 Refill(s) l 23:09: Brian 00 methocarbam 2020-0 Yes 500 mg = 1 Memoria ol 500 mg 6-04 tab, PO, l oral tablet 23:09: Bedtime, He rmann 00 PRN Headache 6-10, 0 Refill(s) Alprazolam 2019-0 Yes 0.25 mg = Me moria 0.25 MG 6-04 1 tab, PO, l Oral Tablet 23:09: Daily, PRN Brian 00 anxiety, stress, # 20 tab, 0 Refill(s) Nitroglycer 2019-0 Yes 0.4 mg = 1 Memoria in 0.4 MG - tab, SL, l Sublingual 23:09: Q5Min, PRN H ermann Tablet 00 Chest pain, Give up to 3 doses. Call 911 if pain persists., # 100 tab, 0 Refill(s) Regular 2020-0 Yes 40 units, Memor ia Insulin, 6-04 SUB-Q, l Human 100 23:09: Q12H, 0 Marika nn UNT/ML 00 Refill(s) Injectable Solution [Humulin R] SymlinPen 2019-0 Yes 60 Memoria 120 6-04 microgram, l 23:09: SUB-Q, Brian 00 Q12H, 0 Refill(s) Rosuvastati 2019-0 Yes 40 mg = 1 M emoria n calcium 6-04 tab, PO, l 40 MG Oral 23:09: Bedtime, # H ermann Tablet 00 30 tab, 0 [Crestor] Refill(s) NIFEdipine 2020-0 Yes 60 mg = 1 Me moria 60 mg oral 6-04 tab, PO, l tablet, 23:09: Bedtime, 0 Herm sarah extended 00 Refill(s) release carvedilol 2020-0 Yes 3.125 mg = M emoria 3.125 mg -04 1 tab, PO, l oral tablet 23:09: Bedtime, 0 Brian 00 Refill(s) irbesartan 2020-0 Yes 150 mg = 1 M emoria 150 mg oral 6-04 tab, PO, l tablet 23:09: Bedtime, # Marika nn 00 30 tab, 0 Refill(s) Vitamin D3 2020-0 Yes 50,000 Memor ia 50,000 intl 6 IntlUnit = l units oral 23:09: 1 [...] 4 times a week, 0 Refill(s) latanoprost 2020-0 Yes 1 drop, Mem oria 04 BOTH EYES, l 23:09: QPM, 0 Brian 00 Refill(s) Methocarbam 2020-0 No 0 Memori a ol 04 Refill(s) l 23:09: [place] 00 methocarbam 2020-0 Yes 500 mg = 1 Memoria ol 500 mg -04 tab, PO, l oral tablet 23:09: Bedtime, He rmann 00 PRN Headache 6-10, 0 Refill(s) Alprazolam 2020-0 Yes 0.25 mg = Me moria 0.25 MG -04 1 tab, PO, l Oral Tablet 23:09: Daily, PRN Brian 00 anxiety, stress, # 20 tab, 0 Refill(s) Nitroglycer 2020-0 Yes 0.4 mg = 1 Memoria in 0.4 MG 6-04 tab, SL, l Sublingual 23:09: Q5Min, PRN H ermann Tablet 00 Chest pain, Give up to 3 doses. Call 911 if pain persists., # 100 tab, 0 Refill(s) Regular 2020-0 Yes 40 units, Memor ia Insulin, 6-04 SUB-Q, l Human 100 23:09: Q12H, 0 Marika nn UNT/ML 00 Refill(s) Injectable Solution [Humulin R] SymlinPen 2020-0 Yes 60 Memoria 120 6-04 microgram, l 23:09: SUB-Q, [place] 00 Q12H, 0 Refill(s) Rosuvastati 2020-0 Yes 40 mg = 1 M emoria n calcium 6-04 tab, PO, l 40 MG Oral 23:09: Bedtime, # H ermann Tablet 00 30 tab, 0 [Crestor] Refill(s) NIFEdipine 2020-0 Yes 60 mg = 1 Me moria 60 mg oral 6-04 tab, PO, l tablet, 23:09: Bedtime, 0 Herm sarah extended 00 Refill(s) release carvedilol 2020-0 Yes 3.125 mg = M emoria 3.125 mg 6-04 1 tab, PO, l oral tablet 23:09: Bedtime, 0 [place] 00 Refill(s) irbesartan 2020-0 Yes 150 mg = 1 M emoria 150 mg oral 6-04 tab, PO, l tablet 23:09: Bedtime, # Marika nn 00 30 tab, 0 Refill(s) Vitamin D3 2020-0 Yes 50,000 Memor ia 50,000 intl 11-29 IntlUnit = l units oral 23:09: 1 cap, PO, H ermann capsule 00 qWeek, # 12 cap, 0 Refill(s) Furosemide 2020-0 Yes See Memoria 20 MG Oral 6-04 Instructio l Tablet 23:09: ns, 1 tab Cody n 00 PO bedtime 4 times per week, 0 Refill(s) Potassium 2020-0 Yes See Memoria Chloride 6-04 Instructio l 23:09: ns, 10 mEq Brian 00 PO bedtime 4 times a week, 0 Refill(s) latanoprost 2020-0 Yes 1 drop, Mem oria 6-04 BOTH EYES, l 23:09: QPM, 0 Brian 00 Refill(s) Methocarbam 2020-0 No 0 Memori a ol 6-04 Refill(s) l 23:09: Brian 00 methocarbam 2020-0 Yes 500 mg = 1 Memoria ol 500 mg 6-04 tab, PO, l oral tablet 23:09: Bedtime, He rmann 00 PRN Headache 6-10, 0 Refill(s) Alprazolam Yes 0.25 mg = Me moria 0.25 MG 6-04 1 tab, PO, l Oral Tablet 23:09: Daily, PRN [place] 00 anxiety, stress, # 20 tab, 0 Refill(s) Nitroglycer Yes 0.4 mg = 1 Memoria in 0.4 MG 6-04 tab, SL, l Sublingual 23:09: Q5Min, PRN H ermann Tablet 00 Chest pain, Give up to 3 doses. Call 911 if pain persists., # 100 tab, 0 Refill(s) Flagyl No Notes: Memoria 6-04 (Same as: l 23:00: Flagyl) [place] Avoid alcohol. Flagyl No Notes: Memoria 6-04 (Same as: l 23:00: Flagyl) Brian Avoid alcohol. Flagyl No Notes: Memoria 6-04 (Same as: l 23:00: Flagyl) [place] Avoid alcohol. Flagyl No Notes: Memoria 6-04 (Same as: l 23:00: Flagyl) Brian Avoid alcohol. Flagyl No Notes: Memoria 6-04 (Same as: l 23:00: Flagyl) [place] 00 Avoid alcohol. Flagyl No Notes: Memoria 6-04 (Same as: l 23:00: Flagyl) Brian Avoid alcohol. Flagyl No Notes: Memoria 6-04 (Same as: l 23:00: Flagyl) Brian 00 Avoid alcohol. Flagyl No Notes: Memoria 6-04 (Same as: l 23:00: Flagyl) [place] 00 Avoid alcohol. Flagyl No Notes: Memoria 6-04 (Same as: l 23:00: Flagyl) Brian 00 Avoid alcohol. Flagyl No Notes: Memoria 6-04 (Same as: l 23:00: Flagyl) Brian 00 Avoid alcohol. Flagyl No Notes: Memoria 6-04 (Same as: l 23:00: Flagyl) Brian 00 Avoid alcohol. Flagyl No Notes: Memoria 6-04 (Same as: l 23:00: Flagyl) Brian 00 Avoid alcohol. Docusate No Notes: Memoria 6-04 (Same as: l 22:00: Colace) [place] 00 (Do Not Crush) Docusate No Notes: Memoria 6-04 (Same as: l 22:00: Colace) Brian 00 (Do Not Crush) Docusate No Notes: Memoria 6-04 (Same as: l 22:00: Colace) Brian 00 (Do Not Crush) Docusate No Notes: Memoria 6-04 (Same as: l 22:00: Colace) [place] 00 (Do Not Crush) Docusate No Notes: Memoria 6-04 (Same as: l 22:00: Colace) Brian 00 (Do Not Crush) Docusate No Notes: Memoria 6-04 (Same as: l 22:00: Colace) Brian 00 (Do Not Crush) Docusate No Notes: Memoria 6-04 (Same as: l 22:00: Colace) Brian 00 (Do Not Crush) Docusate No Notes: Memoria 6-04 (Same as: l 22:00: Colace) Brian 00 (Do Not Crush) Docusate No Notes: Memoria 6-04 (Same as: l 22:00: Colace) [place] 00 (Do Not Crush) Docusate No Notes: Memoria 6-04 (Same as: l 22:00: Colace) Brian 00 (Do Not Crush) Docusate No Notes: Memoria 6-04 (Same as: l 22:00: Colace) Brian 00 (Do Not Crush) Docusate No Notes: Memoria 6-04 (Same as: l 22:00: Colace) [place] 00 (Do Not Crush) Acetaminoph No Notes: Jacinto margarita en 325 MG / 6-04 (Same as: l Hydrocodone 21:28: Lerona Marika nn Bitartrate 00 325/5) Do 5 MG Oral not exceed Tablet 4gm/day of [Lerona acetaminop 5/325] hen. Acetaminoph No Notes: Jacinto margarita en 325 MG / 11-29 (Same as: l Hydrocodone 21:28: Lerona Marika nn Bitartrate 00 325/5) Do 5 MG Oral not exceed Tablet 4gm/day of [Lerona acetaminop 5/325] hen. Acetaminoph No Notes: Jacinto margarita en 325 MG / 11-29 (Same as: l Hydrocodone 21:28: Lerona Marika nn Bitartrate 00 325/5) Do 5 MG Oral not exceed Tablet 4gm/day of [Lerona acetaminop 5/325] hen. Acetaminoph No Notes: Jacinto margarita en 325 MG / 11-29 (Same as: l Hydrocodone 21:28: Lerona Mraika nn Bitartrate 00 325/5) Do 5 MG Oral not exceed Tablet 4gm/day of [Lerona acetaminop 5/325] hen. Acetaminoph No Notes: Jacinto margarita en 325 MG / 11-29 (Same as: l Hydrocodone 21:28: Lerona Marika nn Bitartrate 00 325/5) Do 5 MG Oral not exceed Tablet 4gm/day of [Lerona acetaminop 5/325] hen. Acetaminoph No Notes: Jacinto margarita en 325 MG / 11-29 (Same as: l Hydrocodone 21:28: Lerona Marika nn Bitartrate 00 325/5) Do 5 MG Oral not exceed Tablet 4gm/day of [Lerona acetaminop 5/325] hen. Acetaminoph No Notes: Jacinto margarita en 325 MG / 11-29 (Same as: l Hydrocodone 21:28: Lerona Marika nn Bitartrate 00 325/5) Do 5 MG Oral not exceed Tablet 4gm/day of [Lerona acetaminop 5/325] hen. Acetaminoph No Notes: Jacinto margarita en 325 MG / 11-29 (Same as: l Hydrocodone 21:28: Lerona Marika nn Bitartrate 00 325/5) Do 5 MG Oral not exceed Tablet 4gm/day of [Lerona acetaminop 5/325] hen. Acetaminoph No Notes: Jacinto margarita en 325 MG / 6-04 (Same as: l Hydrocodone 21:28: Lerona Marika nn Bitartrate 00 325/5) Do 5 MG Oral not exceed Tablet 4gm/day of [Lerona acetaminop 5/325] hen. Acetaminoph No Notes: Jacinto margarita en 325 MG / 6-04 (Same as: l Hydrocodone 21:28: Lerona Marika nn Bitartrate 00 325/5) Do 5 MG Oral not exceed Tablet 4gm/day of [Lerona acetaminop 5/325] hen. Acetaminoph No Notes: Jacinto margarita en 325 MG / 6-04 (Same as: l Hydrocodone 21:28: Lerona Marika nn Bitartrate 00 325/5) Do 5 MG Oral not exceed Tablet 4gm/day of [Lerona acetaminop 5/325] hen. Acetaminoph No Notes: Jacinto margarita en 325 MG / 6-04 (Same as: l Hydrocodone 21:28: Lerona Marika nn Bitartrate 00 325/5) Do 5 MG Oral not exceed Tablet 4gm/day of [Lerona acetaminop 5/325] hen. Dextrose No 12.5 gm, Memor ia 50% Syringe 11-29 25 mL, l (D50W) 21:27: Route: [place] 00 IVP, Drug Form: INJ, Dosing Weight 96.364, kg, PRN, PRN Blood Glucose Results, Start date: 11/30/19 16:27:00 CDT, Duration: 30 day, Stop date: 12/30/19 16:26:00 CDT, 0 Glucagon 2019-0 No 1 mg, Memoria 11-29 Route: IM, l 21:27: Drug form: [place] 00 PDR/INJ, PRN, Dosing Weight 96.364, kg, PRN Blood Glucose Results, Start date: 11/30/19 16:27:00 CDT, Duration: 30 day, Stop date: 12/30/19 16:26:00 CDT, 0 Insulin 2019-0 No Notes: Memoria Lispro - (Same as: [...] 1 mg, Memoria 6-04 Route: IM, l 21:27: Drug form: [place] 00 PDR/INJ, PRN, Dosing Weight 96.364, kg, PRN Blood Glucose Results, Start date: 11/30/19 16:27:00 CDT, Duration: 30 day, Stop date: 12/30/19 16:26:00 CDT, 0 Insulin 2020-0 No Notes: Memoria Lispro 6-04 (Same as: l 21:27: Humalog) Roll in palms of hands gently; Do not shake vigorously . WASTE: F/P - Black; E - Municipal Trash Bin Stable for 28 days at room temperatur e. Expires in days from ____Date Dextrose 2020-0 No 12.5 gm, Memor ia 50% Syringe 6-04 25 mL, l (D50W) 21:27: Route: [place] 00 IVP, Drug Form: INJ, Dosing Weight 96.364, kg, PRN, PRN Blood Glucose Results, Start date: 11/30/19 16:27:00 CDT, Duration: 30 day, Stop date: 12/30/19 16:26:00 CDT, 0 Glucagon 2020-0 No 1 mg, Memoria 6-04 Route: IM, l 21:27: Drug form: [place] 00 PDR/INJ, PRN, Dosing Weight 96.364, kg, PRN Blood Glucose Results, Start date: 11/30/19 16:27:00 CDT, Duration: 30 day, Stop date: 12/30/19 16:26:00 CDT, 0 Insulin 2020-0 No Notes: Memoria Lispro 6-04 (Same as: l 21:27: Humalog) Brian 00 Roll in palms of [...] 1 mg, Memoria 6-04 Route: IM, l 21:27: Drug form: [place] 00 PDR/INJ, PRN, Dosing Weight 96.364, kg, PRN Blood Glucose Results, Start date: 11/30/19 16:27:00 CDT, Duration: 30 day, Stop date: 12/30/19 16:26:00 CDT, 0 Insulin 2020-0 No Notes: Memoria Lispro 6-04 (Same as: l 21:27: Humalog) [place] 00 Roll in palms of hands gently; Do not shake vigorously . WASTE: F/P - Black; E - Municipal Trash Bin Stable for 28 days at room temperatur e. Expires in days from ____Date Dextrose 2020-0 No 12.5 gm, Memor ia 50% Syringe 6-04 25 mL, l (D50W) 21:27: Route: [place] 00 IVP, Drug Form: INJ, Dosing Weight 96.364, kg, PRN, PRN Blood Glucose Results, Start date: 11/30/19 16:27:00 CDT, Duration: 30 day, Stop date: 12/30/19 16:26:00 CDT, 0 Glucagon 2020-0 No 1 mg, Memoria 6-04 Route: IM, l 21:27: Drug form: Brian 00 PDR/INJ, PRN, Dosing Weight 96.364, kg, PRN Blood Glucose Results, Start date: 11/30/19 16:27:00 CDT, Duration: 30 day, Stop date: 12/30/19 16:26:00 CDT, 0 Insulin 2020-0 No Notes: Memoria Lispro 6-04 (Same as: l 21:27: Humalog) Brian 00 Roll in palms of hands gently; Do not shake vigorously . WASTE: F/P - Black; E - Municipal Trash Bin Stable for 28 days at room temperatur e. Expires in days from ____Date Dextrose 2020-0 No 12.5 gm, Memor ia 50% Syringe 6-04 25 mL, l (D50W) 21:27: Route: [place] 00 IVP, Drug Form: INJ, Dosing Weight 96.364, kg, PRN, PRN Blood Glucose Results, Start date: 11/30/19 16:27:00 CDT, Duration: 30 day, Stop date: 12/30/19 16:26:00 CDT, 0 Glucagon 2020-0 No 1 mg, Memoria 6-04 Route: IM, l 21:27: Drug form: [place] 00 PDR/INJ, PRN, Dosing Weight 96.364, kg, PRN Blood Glucose Results, Start date: 11/30/19 16:27:00 CDT, Duration: 30 day, Stop date: 12/30/19 16:26:00 CDT, 0 Insulin 2020-0 No Notes: Memoria Lispro 6-04 (Same as: l 21:27: Humalog) Brian 00 Roll in palms of hands gently; Do not shake vigorously . WASTE: F/P - Black; E - Municipal Trash Bin Stable for 28 days at room temperatur e. Expires in days from ____Date Dextrose 2020-0 No 12.5 gm, Memor ia 50% Syringe 6-04 25 mL, l (D50W) 21:27: Route: [place] 00 IVP, Drug Form: INJ, Dosing Weight 96.364, kg, PRN, PRN Blood Glucose Results, Start date: 11/30/19 16:27:00 CDT, Duration: 30 day, Stop date: 12/30/19 16:26:00 CDT, 0 Glucagon 2020-0 No 1 mg, Memoria 6-04 Route: IM, l 21:27: Drug form: Brian PDR/INJ, PRN, Dosing Weight 96.364, kg, PRN Blood Glucose Results, Start date: 11/30/19 16:27:00 CDT, Duration: 30 day, Stop date: 12/30/19 16:26:00 CDT, 0 Insulin 2020-0 No Notes: Memoria Lispro 6-04 (Same as: l 21:27: Humalog) Roll in palms of hands gently; Do not shake vigorously . WASTE: F/P - Black; E - Municipal Trash Bin Stable for 28 days at room temperatur e. Expires in days from ____Date Dextrose 2020-0 No 12.5 gm, Memor ia 50% Syringe - 25 mL, l (D50W) 21:27: Route: IVP, Drug Form: INJ, Dosing Weight 96.364, kg, PRN, PRN Blood Glucose Results, Start date: 11/30/19 16:27:00 CDT, Duration: 30 day, Stop date: 12/30/19 16:26:00 CDT, 0 Glucagon 2020-0 No 1 mg, Memoria 6-04 Route: IM, l 21:27: Drug form: Brian 00 PDR/INJ, PRN, Dosing Weight 96.364, kg, PRN Blood Glucose Results, Start date: 11/30/19 16:27:00 CDT, Duration: 30 day, Stop date: 12/30/19 16:26:00 CDT, 0 Insulin 2020-0 No Notes: Memoria Lispro 6-04 (Same as: l 21:27: Humalog) Roll in [...] 1 mg, Memoria 6-04 Route: IM, l 21:27: Drug form: Brian 00 PDR/INJ, PRN, Dosing Weight 96.364, kg, PRN Blood Glucose Results, Start date: 11/30/19 16:27:00 CDT, Duration: 30 day, Stop date: 12/30/19 16:26:00 CDT, 0 Insulin 2020-0 No Notes: Memoria Lispro 6-04 (Same as: l 21:27: Humalog) Roll in [...] 1 mg, Memoria 6-04 Route: IM, l 21:27: Drug form: [place] 00 PDR/INJ, PRN, Dosing Weight 96.364, kg, PRN Blood Glucose Results, Start date: 11/30/19 16:27:00 CDT, Duration: 30 day, Stop date: 12/30/19 16:26:00 CDT, 0 Insulin 2020-0 No Notes: Memoria Lispro 6-04 (Same as: l 21:27: Humalog) Roll in [...] 1 mg, Memoria 6-04 Route: IM, l 21:27: Drug form: [place] 00 PDR/INJ, PRN, Dosing Weight 96.364, kg, PRN Blood Glucose Results, Start date: 11/30/19 16:27:00 CDT, Duration: 30 day, Stop date: 12/30/19 16:26:00 CDT, 0 Insulin 2020-0 No Notes: Memoria Lispro 6-04 (Same as: l :: Humalog) Roll in palms of hands gently; [...] 1 mg, Memoria 6-04 Route: IM, l 21:27: Drug form: [place] 00 PDR/INJ, PRN, Dosing Weight 96.364, kg, [...] e. Expires in days from ____Date Dextrose 2019-0 No 12.5 gm, Memor ia 50% Syringe 6- 25 mL, l (D50W) 21:25: Route: IVP, Drug Form: INJ, Dosing Weight 96.364, kg, PRN, PRN Blood Glucose Results, Start date: 11/30/19 16:25:00 CDT, Duration: 30 day, Stop date: 12/30/19 16:24:00 CDT, 0 Glucagon 2020-0 No 1 mg, Memoria 11-29 Route: IM, l 21:25: Drug form: PDR/INJ, PRN, Dosing Weight 96.364, kg, PRN Blood Glucose Results, Start date: 11/30/19 16:25:00 CDT, Duration: 30 day, Stop date: 12/30/19 16:24:00 CDT, 0 Bisacodyl 2020-0 No Notes: Memori a - (Same As: l 21:25: Dulcolax, Bisco-Lax) Ondansetron 2019-0 No Notes: Jacinto margarita - (Same as: l 21:25: Zofran) MEDICATION WASTE Product Size: 4 mg Product Wasted: 0 mg Melatonin 2019-0 No Notes: Memori a 6-04 (Same as: l 21:25: Melatonin) Acetaminoph 2019-0 No Notes: Do M emoria en 11-29 not exceed l 21:25: 4 gm/day. (Same as: Tylenol) Dextrose 2019-0 No 12.5 gm, Memor ia 50% Syringe 6-04 25 mL, l (D50W) 21:25: Route: [place] 00 IVP, Drug Form: INJ, Dosing Weight 96.364, kg, PRN, PRN Blood Glucose Results, Start date: 11/30/19 16:25:00 CDT, Duration: 30 day, Stop date: 12/30/19 16:24:00 CDT, 0 Glucagon 2020-0 No 1 mg, Memoria 11-29 Route: IM, l 21:25: Drug form: [place] 00 PDR/INJ, PRN, Dosing Weight 96.364, kg, PRN Blood Glucose Results, Start date: 11/30/19 16:25:00 CDT, Duration: 30 day, Stop date: 12/30/19 16:24:00 CDT, 0 Bisacodyl 2019-0 No Notes: Memori a 11-29 (Same As: l 21:25: Dulcolax, Bisco-Lax) Ondansetron 2019-0 No Notes: Jacinto margarita 11-29 (Same as: l 21:25: Zofran) MEDICATION WASTE Product Size: 4 mg Product Wasted: 0 mg Melatonin 2019-0 No Notes: Memori a - (Same as: l 21:25: Melatonin) Acetaminoph 2019-0 No Notes: Do M emoria en 11-29 not exceed l 21:25: 4 gm/day. (Same as: Tylenol) Dextrose 2019-0 No 12.5 gm, Memor ia 50% Syringe 11-29 25 mL, l (D50W) 21:25: Route: Brian 00 IVP, Drug Form: INJ, Dosing Weight 96.364, kg, PRN, PRN Blood Glucose Results, Start date: 11/30/19 16:25:00 CDT, Duration: 30 day, Stop date: 12/30/19 16:24:00 CDT, 0 Glucagon 2020-0 No 1 mg, Memoria - Route: IM, l 21:25: Drug form: Brian 00 PDR/INJ, PRN, Dosing Weight 96.364, kg, PRN Blood Glucose Results, Start date: 11/30/19 16:25:00 CDT, Duration: 30 day, Stop date: 12/30/19 16:24:00 CDT, 0 Bisacodyl 2020-0 No Notes: Memori a 6- (Same As: l 21:25: Dulcolax, [place] 00 Bisco-Lax) Ondansetron 2020-0 No Notes: Jacinto margarita 6- (Same as: l 21:25: Zofran) MEDICATION WASTE Product Size: 4 mg Product Wasted: 0 mg Melatonin 2020-0 No Notes: Memori a 6- (Same as: l 21:25: Melatonin) Acetaminoph 2019-0 No Notes: Do M emoria en 11-29 not exceed l 21:25: 4 gm/day. (Same as: Tylenol) Dextrose 2019-0 No 12.5 gm, Memor ia 50% Syringe 11-29 25 mL, l (D50W) 21:25: Route: IVP, Drug Form: INJ, Dosing Weight 96.364, kg, PRN, PRN Blood Glucose Results, Start date: 11/30/19 16:25:00 CDT, Duration: 30 day, Stop date: 12/30/19 16:24:00 CDT, 0 Glucagon 2020-0 No 1 mg, Memoria 11-29 Route: IM, l 21:25: Drug form: Brian 00 PDR/INJ, PRN, Dosing Weight 96.364, kg, PRN Blood Glucose Results, Start date: 11/30/19 16:25:00 CDT, Duration: 30 day, Stop date: 12/30/19 16:24:00 CDT, 0 Bisacodyl 2020-0 No Notes: Memori a - (Same As: l 21:25: Dulcolax, Brian 00 Bisco-Lax) Ondansetron 2020-0 No Notes: Jacinto margarita - (Same as: l 21:25: Zofran) MEDICATION WASTE Product Size: 4 mg Product Wasted: 0 mg Melatonin 2020-0 No Notes: Memori a 6-04 (Same as: l 21:25: Melatonin) Acetaminoph 2020-0 No Notes: Do M emoria en 11-29 not exceed l 21:25: 4 gm/day. [place] 00 (Same as: Tylenol) Dextrose 2020-0 No 12.5 gm, Memor ia 50% Syringe 6-04 25 mL, l (D50W) 21:25: Route: [place] 00 IVP, Drug Form: INJ, Dosing Weight 96.364, kg, PRN, PRN Blood Glucose Results, Start date: 11/30/19 16:25:00 CDT, Duration: 30 day, Stop date: 12/30/19 16:24:00 CDT, 0 Glucagon 2020-0 No 1 mg, Memoria 6- Route: IM, l 21:25: Drug form: Brian 00 PDR/INJ, PRN, Dosing Weight 96.364, kg, PRN Blood Glucose Results, Start date: 11/30/19 16:25:00 CDT, Duration: 30 day, Stop date: 12/30/19 16:24:00 CDT, 0 Bisacodyl 2020-0 No Notes: Memori a 6-04 (Same As: l 21:25: Dulcolax, Bisco-Lax) Ondansetron 2019-0 No Notes: Jacinto margarita - (Same as: l 21:25: Zofran) MEDICATION WASTE Product Size: 4 mg Product Wasted: 0 mg Melatonin 2019-0 No Notes: Memori a 6-04 (Same as: l 21:25: Melatonin) Acetaminoph 2019-0 No Notes: Do M emoria en -04 not exceed l 21:25: 4 gm/day. (Same as: Tylenol) Dextrose 2020-0 No 12.5 gm, Memor ia 50% Syringe 6-04 25 mL, l (D50W) 21:25: Route: [place] 00 IVP, Drug Form: INJ, Dosing Weight 96.364, kg, PRN, PRN Blood Glucose Results, Start date: 11/30/19 16:25:00 CDT, Duration: 30 day, Stop date: 12/30/19 16:24:00 CDT, 0 Glucagon 2020-0 No 1 mg, Memoria 6-04 Route: IM, l 21:25: Drug form: [place] 00 PDR/INJ, PRN, Dosing Weight 96.364, kg, PRN Blood Glucose Results, Start date: 11/30/19 16:25:00 CDT, Duration: 30 day, Stop date: 12/30/19 16:24:00 CDT, 0 Bisacodyl 2020-0 No Notes: Memori a 6-04 (Same As: l 21:25: Dulcolax, Brian 00 Bisco-Lax) Ondansetron 2020-0 No Notes: Jacinto margarita 6-04 (Same as: l 21:25: Zofran) MEDICATION WASTE Product Size: 4 mg Product Wasted: 0 mg Melatonin 2020-0 No Notes: Memori a 6-04 (Same as: l 21:25: Melatonin) Acetaminoph 2020-0 No Notes: Do M emoria en 11-29 not exceed l 21:25: 4 gm/day. (Same as: Tylenol) Dextrose 2019-0 No 12.5 gm, Memor ia 50% Syringe 11-29 25 mL, l (D50W) 21:25: Route: Brian 00 IVP, Drug Form: INJ, Dosing Weight 96.364, kg, PRN, PRN Blood Glucose Results, Start date: 11/30/19 16:25:00 CDT, Duration: 30 day, Stop date: 12/30/19 16:24:00 CDT, 0 Glucagon 2020-0 No 1 mg, Memoria 11-29 Route: IM, l 21:25: Drug form: [place] PDR/INJ, PRN, Dosing Weight 96.364, kg, PRN Blood Glucose Results, Start date: 11/30/19 16:25:00 CDT, Duration: 30 day, Stop date: 12/30/19 16:24:00 CDT, 0 Bisacodyl 2020-0 No Notes: Memori a 6-04 (Same As: l 21:25: Dulcolax, Brian Bisco-Lax) Ondansetron 2020-0 No Notes: Jacinto margarita 6-04 (Same as: l 21:25: Zofran) MEDICATION WASTE Product Size: 4 mg Product Wasted: 0 mg Melatonin 2020-0 No Notes: Memori a 6-04 (Same as: l 21:25: Melatonin) [place] 00 Acetaminoph 2020-0 No Notes: Do Elaine lunaria en 6- not exceed l 21:25: 4 gm/day. (Same as: Tylenol) Dextrose 2020-0 No 12.5 gm, Memor ia 50% Syringe 6-04 25 mL, l (D50W) 21:25: Route: IVP, Drug Form: INJ, Dosing Weight 96.364, kg, PRN, PRN Blood Glucose Results, Start date: 11/30/19 16:25:00 CDT, Duration: 30 day, Stop date: 12/30/19 16:24:00 CDT, 0 Glucagon 2020-0 No 1 mg, Memoria 6- Route: IM, l 21:25: Drug form: PDR/INJ, PRN, Dosing Weight 96.364, kg, PRN Blood Glucose Results, Start date: 11/30/19 16:25:00 CDT, Duration: 30 day, Stop date: 12/30/19 16:24:00 CDT, 0 Bisacodyl 2019-0 No Notes: Memori a 6-04 (Same As: l 21:25: Dulcolax, Bisco-Lax) Ondansetron 2019-0 No Notes: Jacinto margarita -04 (Same as: l 21:25: Zofran) MEDICATION WASTE Product Size: 4 mg Product Wasted: 0 mg Melatonin 2019-0 No Notes: Memori a 6-04 (Same as: l 21:25: Melatonin) Acetaminoph 2019-0 No Notes: Do Elaine lunaria en - not exceed l 21:25: 4 gm/day. (Same as: Tylenol) Dextrose 2020-0 No 12.5 gm, Memor ia 50% Syringe 6-04 25 mL, l (D50W) 21:25: Route: [place] 00 IVP, Drug Form: INJ, Dosing Weight 96.364, kg, PRN, PRN Blood Glucose Results, Start date: 11/30/19 16:25:00 CDT, Duration: 30 day, Stop date: 12/30/19 16:24:00 CDT, 0 Glucagon 2020-0 No 1 mg, Memoria 6-04 Route: IM, l 21:25: Drug form: Brian PDR/INJ, PRN, Dosing Weight 96.364, kg, PRN Blood Glucose Results, Start date: 11/30/19 16:25:00 CDT, Duration: 30 day, Stop date: 12/30/19 16:24:00 CDT, 0 Bisacodyl 2020-0 No Notes: Memori a 6- (Same As: l 21:25: Dulcolax, Brian Bisco-Lax) Ondansetron 2020-0 No Notes: Jacinto margarita - (Same as: l 21:25: Zofran) MEDICATION WASTE Product Size: 4 mg Product Wasted: 0 mg Melatonin 2020-0 No Notes: Memori a - (Same as: l 21:25: Melatonin) Acetaminoph 2019-0 No Notes: Do M emoria en 11-29 not exceed l 21:25: 4 gm/day. (Same as: Tylenol) Dextrose 2019-0 No 12.5 gm, Memor ia 50% Syringe 11-29 25 mL, l (D50W) 21:25: Route: IVP, Drug Form: INJ, Dosing Weight 96.364, kg, PRN, PRN Blood Glucose Results, Start date: 11/30/19 16:25:00 CDT, Duration: 30 day, Stop date: 12/30/19 16:24:00 CDT, 0 Glucagon 2020-0 No 1 mg, Memoria 11-29 Route: IM, l 21:25: Drug form: [place] 00 PDR/INJ, PRN, Dosing Weight 96.364, kg, PRN Blood Glucose Results, Start date: 11/30/19 16:25:00 CDT, Duration: 30 day, Stop date: 12/30/19 16:24:00 CDT, 0 Bisacodyl 2020-0 No Notes: Memori a 6-04 (Same As: l 21:25: Dulcolax, [place] 00 Bisco-Lax) Ondansetron 2020-0 No Notes: Jacinto margarita - (Same as: l 21:25: Zofran) MEDICATION WASTE Product Size: 4 mg Product Wasted: 0 mg Melatonin 2020-0 No Notes: Memori a 6-04 (Same as: l 21:25: Melatonin) Acetaminoph No Notes: Do M emoria en 11-29 not exceed l 21:25: 4 gm/day. (Same as: Tylenol) Dextrose 2019-0 No 12.5 gm, Memor ia 50% Syringe 6-04 25 mL, l (D50W) 21:25: Route: [place] 00 IVP, Drug Form: INJ, Dosing Weight 96.364, kg, PRN, PRN Blood Glucose Results, Start date: 11/30/19 16:25:00 CDT, Duration: 30 day, Stop date: 12/30/19 16:24:00 CDT, 0 Glucagon No 1 mg, Memoria 11-29 Route: IM, l 21:25: Drug form: [place] 00 PDR/INJ, PRN, Dosing Weight 96.364, kg, PRN Blood Glucose Results, Start date: 11/30/19 16:25:00 CDT, Duration: 30 day, Stop date: 12/30/19 16:24:00 CDT, 0 Bisacodyl 2019-0 No Notes: Memori a 6-04 (Same As: l 21:25: Dulcolax, Bisco-Lax) Ondansetron 0 No Notes: Jacinto margarita - (Same as: l 21:25: Zofran) MEDICATION WASTE Product Size: 4 mg Product Wasted: 0 mg Melatonin 0 No Notes: Memori a 6-04 (Same as: l 21:25: Melatonin) Acetaminoph 2019-0 No Notes: Do M emoria en 11-29 not exceed l 21:25: 4 gm/day. (Same as: Tylenol) Dextrose 2020-0 No 12.5 gm, Memor ia 50% Syringe 6-04 25 mL, l (D50W) 21:25: Route: [place] 00 IVP, Drug Form: INJ, Dosing Weight 96.364, kg, PRN, PRN Blood Glucose Results, Start date: 11/30/19 16:25:00 CDT, Duration: 30 day, Stop date: 12/30/19 16:24:00 CDT, 0 Glucagon No 1 mg, Memoria 11-29 Route: IM, l 21:25: Drug form: [place] PDR/INJ, PRN, Dosing Weight 96.364, kg, PRN Blood Glucose Results, Start date: 11/30/19 16:25:00 CDT, Duration: 30 day, Stop date: 12/30/19 16:24:00 CDT, 0 Bisacodyl No Notes: Memori a 11-29 (Same As: l 21:25: Dulcolax, Bisco-Lax) Ondansetron No Notes: Jacinto margarita 11-29 (Same as: l 21:25: Zofran) MEDICATION WASTE Product Size: 4 mg Product Wasted: 0 mg Melatonin No Notes: Memori a 11-29 (Same as: l 21:25: Melatonin) Acetaminoph No Notes: Do M emoria en 11-29 not exceed l 21:25: 4 gm/day. Brian 00 (Same as: Tylenol) Regular No 7 unit, Memoria Insulin, 11-29 Route: l Human 100 16:39: SUB-Q, Cody n UNT/ML 00 ONCE, Injectable Dosing Solution Weight 96.364, kg, Start date: 11/30/19 11:39:00 CDT, Stop date: 11/30/19 11:39:00 CDT Omnipaque No Notes: Memori a 350 - (Same l 16:39: as:Omnipaq [place] 00 ue 350). WASTE: F/P - Black; E - Municipal Trash Bin Regular No 7 unit, Memoria Insulin, 11-29 Route: l Human 100 16:39: SUB-Q, Cody n UNT/ML 00 ONCE, Injectable Dosing Solution Weight 96.364, kg, Start date: 11/30/19 11:39:00 CDT, Stop date: 11/30/19 11:39:00 CDT Omnipaque No Notes: Memori a 350 11-29 (Same l 16:39: as:Omnipaq Brian ue 350). WASTE: F/P - Black; E - Municipal Trash Bin Regular No 7 unit, Memoria Insulin, 6 Route: l Human 100 16:39: SUB-Q, Cody n UNT/ML 00 ONCE, Injectable Dosing Solution Weight 96.364, kg, Start date: 11/30/19 11:39:00 CDT, Stop date: 11/30/19 11:39:00 CDT Omnipaque 20200 No Notes: Memori a 350 - (Same l 16:39: as:Omnipaq [place] 00 ue 350). WASTE: F/P - Black; E - Municipal Trash Bin Regular No 7 unit, Memoria Insulin, 11-29 Route: l Human 100 16:39: SUB-Q, Cody n UNT/ML 00 ONCE, Injectable Dosing Solution Weight 96.364, kg, Start date: 11/30/19 11:39:00 CDT, Stop date: 11/30/19 11:39:00 CDT Omnipaque 0 No Notes: Memori a 350 - (Same l 16:39: as:Omnipaq [place] ue 350). WASTE: F/P - Black; E - Municipal Trash Bin Regular No 7 unit, Memoria Insulin, 11-29 Route: l Human 100 16:39: SUB-Q, Cody n UNT/ML 00 ONCE, Injectable Dosing Solution Weight 96.364, kg, Start date: 11/30/19 11:39:00 CDT, Stop date: 11/30/19 11:39:00 CDT Omnipaque 0 No Notes: Memori a 350 - (Same l 16:39: as:Omnipaq [place] ue 350). WASTE: F/P - Black; E - Municipal Trash Bin Regular No 7 unit, Memoria Insulin, 6 Route: l Human 100 16:39: SUB-Q, Cody n UNT/ML 00 ONCE, Injectable Dosing Solution Weight 96.364, kg, Start date: 11/30/19 11:39:00 CDT, Stop date: 11/30/19 11:39:00 CDT O[place] 20200 No Notes: Memori a 350 - (Same l 16:39: as:Omnipaq [place] 00 ue 350). WASTE: F/P - Black; E - Municipal Trash Bin Regular No 7 unit, Memoria Insulin, 11-29 Route: l Human 100 16:39: SUB-Q, Cody n UNT/ML 00 ONCE, Injectable Dosing Solution Weight 96.364, kg, Start date: 11/30/19 11:39:00 CDT, Stop date: 11/30/19 11:39:00 CDT Omnipaque 20200 No Notes: Memori a 350 11-29 (Same l 16:39: as:Omnipaq [place] ue 350). WASTE: F/P - Black; E - Municipal Trash Bin Regular No 7 unit, Memoria Insulin, 11-29 Route: l Human 100 16:39: SUB-Q, Cody n UNT/ML 00 ONCE, Injectable Dosing Solution Weight 96.364, kg, Start date: 11/30/19 11:39:00 CDT, Stop date: 11/30/19 11:39:00 CDT Omnipaque No Notes: Memori a 350 11-29 (Same l 16:39: as:Omnipaq Brian ue 350). WASTE: F/P - Black; E - Municipal Trash Bin Regular No 7 unit, Memoria Insulin, 11-29 Route: l Human 100 16:39: SUB-Q, Cody n UNT/ML 00 ONCE, Injectable Dosing Solution Weight 96.364, kg, Start date: 11/30/19 11:39:00 CDT, Stop date: 11/30/19 11:39:00 CDT Omn[place] 20200 No Notes: Memori a 350 11-29 (Same l 16:39: as:Omnipaq [place] 00 ue 350). WASTE: F/P - Black; E - Municipal Trash Bin Regular No 7 unit, Memoria Insulin, 11-29 Route: l Human 100 16:39: SUB-Q, Cody n UNT/ML 00 ONCE, Injectable Dosing Solution Weight 96.364, kg, Start date: 11/30/19 11:39:00 CDT, Stop date: 11/30/19 11:39:00 CDT Omn[place] 20200 No Notes: Memori a 350 11-29 (Same l 16:39: as:Omnipaq Brian 00 ue 350). WASTE: F/P - Black; E - Municipal Trash Bin Regular 2019-0 No 7 unit, Memoria Insulin, 6 Route: l Human 100 16:39: SUB-Q, Cody n UNT/ML 00 ONCE, Injectable Dosing Solution Weight 96.364, kg, Start date: 11/30/19 11:39:00 CDT, Stop date: 11/30/19 11:39:00 CDT Omnipaque 2020-0 No Notes: Memori a 350 6- (Same l 16:39: as:Omnipaq [place] 00 ue 350). WASTE: F/P - Black; E - Municipal Trash Bin Regular 2019-0 No 7 unit, Memoria Insulin, 11-29 Route: l Human 100 16:39: SUB-Q, Cody n UNT/ML 00 ONCE, Injectable Dosing Solution Weight 96.364, kg, Start date: 11/30/19 11:39:00 CDT, Stop date: 11/30/19 11:39:00 CDT Omnipaque 2020-0 No Notes: Memori a 350 - (Same l 16:39: as:Omnipaq [place] 00 ue 350). WASTE: F/P - Black; E - Municipal Trash Bin BD Normal 2019-0 No Notes: Memori a Saline - (Same as: l Flush 16:00: BD Brian 00 Posiflush) Sodium 2020-0 No 25 mL, Memoria Chloride 11-29 Route: IV, l 0.9% IV 16:00: Start date: 11/30/19 11:00:00 CDT, Duration: 30 day, Stop date: 12/30/19 10:59:00 CDT, PRN Line Flush, 0 BD Normal 2020-0 No Notes: Memori a Saline - (Same as: l Flush 16:00: BD Brian 00 Posiflush) Sodium 2020-0 No 25 mL, Memoria Chloride 6 Route: IV, l 0.9% IV 16:00: Start date: 11/30/19 11:00:00 CDT, Duration: 30 day, Stop date: 12/30/19 10:59:00 CDT, PRN Line Flush, 0 BD Normal 2020-0 No Notes: Memori a Saline 6-04 (Same as: l Flush 16:00: BD [place] Posiflush) Sodium 2020-0 No 25 mL, Memoria Chloride 6-04 Route: IV, l 0.9% IV 16:00: date: 11/30/19 11:00:00 CDT, Duration: 30 day, Stop date: 12/30/19 10:59:00 CDT, PRN Line Flush, 0 BD Normal 2020-0 No Notes: Memori a Saline 6-04 (Same as: l Flush 16:00: BD [place] 00 Posiflush) Sodium 2020-0 No 25 mL, Memoria Chloride 6-04 Route: IV, l 0.9% IV 16:00: date: 11/30/19 11:00:00 CDT, Duration: 30 day, Stop date: 12/30/19 10:59:00 CDT, PRN Line Flush, 0 BD Normal 2020-0 No Notes: Memori a Saline 6-04 (Same as: l Flush 16:00: BD Brian 00 Posiflush) Sodium 2020-0 No 25 mL, Memoria Chloride 6-04 Route: IV, l 0.9% IV 16:00: date: 11/30/19 11:00:00 CDT, Duration: 30 day, Stop date: 12/30/19 10:59:00 CDT, PRN Line Flush, 0 BD Normal 2020-0 No Notes: Memori a Saline 6-04 (Same as: l Flush 16:00: BD Brian 00 Posiflush) Sodium 2020-0 No 25 mL, Memoria Chloride 6-04 Route: IV, l 0.9% IV 16:00: date: 11/30/19 11:00:00 CDT, Duration: 30 day, Stop date: 12/30/19 10:59:00 CDT, PRN Line Flush, 0 BD Normal 2020-0 No Notes: Memori a Saline 6-04 (Same as: l Flush 16:00: BD Brian 00 Posiflush) Sodium 2020-0 No 25 mL, Memoria Chloride 6-04 Route: IV, l 0.9% IV 16:00: Start [place] 00 date: 11/30/19 11:00:00 CDT, Duration: 30 day, Stop date: 12/30/19 10:59:00 CDT, PRN Line Flush, 0 BD Normal 2020-0 No Notes: Memori a Saline 6-04 (Same as: l Flush 16:00: BD [place] Posiflush) Sodium 2020-0 No 25 mL, Memoria Chloride 6-04 Route: IV, l 0.9% IV 16:00: date: 11/30/19 11:00:00 CDT, Duration: 30 day, Stop date: 12/30/19 10:59:00 CDT, PRN Line Flush, 0 BD Normal 2020-0 No Notes: Memori a Saline 6-04 (Same as: l Flush 16:00: BD Brian Posiflush) Sodium 2020-0 No 25 mL, Memoria Chloride 6-04 Route: IV, l 0.9% IV 16:00: date: 11/30/19 11:00:00 CDT, Duration: 30 day, Stop date: 12/30/19 10:59:00 CDT, PRN Line Flush, 0 BD Normal 2020-0 No Notes: Memori a Saline 6-04 (Same as: l Flush 16:00: BD [place] 00 Posiflush) Sodium 2020-0 No 25 mL, Memoria Chloride 6-04 Route: IV, l 0.9% IV 16:00: date: 11/30/19 11:00:00 CDT, Duration: 30 day, Stop date: 12/30/19 10:59:00 CDT, PRN Line Flush, 0 BD Normal 2020-0 No Notes: Memori a Saline 6-04 (Same as: l Flush 16:00: BD [place] 00 Posiflush) Sodium 2020-0 No 25 mL, Memoria Chloride 6-04 Route: IV, l 0.9% IV 16:00: date: 11/30/19 11:00:00 CDT, Duration: 30 day, Stop date: 12/30/19 10:59:00 CDT, PRN Line Flush, 0 BD Normal 2020-0 No Notes: Memori a Saline 6-04 (Same as: l Flush 16:00: BD [place] 00 Posiflush) Sodium 2020-0 No 25 mL, Memoria Chloride - Route: IV, l 0.9% IV 16:00: Start [place] 00 date: 11/30/19 11:00:00 CDT, Duration: 30 day, Stop date: 12/30/19 10:59:00 CDT, PRN Line Flush, 0 Clindamycin 2020-0 No 600 mg, Mem oria 11-29 Route: l 15:42: IVPB, [place] 00 ONCE, Dosing Weight 96.364, kg, Priority: STAT, Start date: 11/30/19 10:42:00 CDT, Stop date: 11/30/19 10:42:00 CDT, ABX Indication : Skin/Soft Tissue Infection Clindamycin 2020-0 No 600 mg, Mem oria - Route: l 15:42: IVPB, [place] 00 ONCE, Dosing Weight 96.364, kg, Priority: STAT, Start date: 11/30/19 10:42:00 CDT, Stop date: 11/30/19 10:42:00 CDT, ABX Indication : Skin/Soft Tissue Infection Clindamycin 2020-0 No 600 mg, Mem oria - Route: l 15:42: IVPB, Brian 00 ONCE, Dosing Weight 96.364, kg, Priority: STAT, Start date: 11/30/19 10:42:00 CDT, Stop date: 11/30/19 10:42:00 CDT, ABX Indication : Skin/Soft Tissue Infection Clindamycin 2020-0 No 600 mg, Mem oria 6- Route: l 15:42: IVPB, [place] 00 ONCE, Dosing Weight 96.364, kg, Priority: STAT, Start date: 11/30/19 10:42:00 CDT, Stop date: 11/30/19 10:42:00 CDT, ABX Indication : Skin/Soft Tissue Infection Clindamycin 2020-0 No 600 mg, Mem oria 6-04 Route: l 15:42: IVPB, [place] 00 ONCE, Dosing Weight 96.364, kg, Priority: STAT, Start date: 11/30/19 10:42:00 CDT, Stop date: 11/30/19 10:42:00 CDT, ABX Indication : Skin/Soft Tissue Infection Clindamycin 2020-0 No 600 mg, Mem oria 6-04 Route: l 15:42: IVPB, Brian 00 ONCE, Dosing Weight 96.364, kg, Priority: STAT, Start date: 11/30/19 10:42:00 CDT, Stop date: 11/30/19 10:42:00 CDT, ABX Indication : Skin/Soft Tissue Infection Clindamycin 2020-0 No 600 mg, Mem oria 6-04 Route: l 15:42: IVPB, [place] 00 ONCE, Dosing Weight 96.364, kg, Priority: STAT, Start date: 11/30/19 10:42:00 CDT, Stop date: 11/30/19 10:42:00 CDT, ABX Indication : Skin/Soft Tissue Infection Clindamycin 2020-0 No 600 mg, Mem oria 6-04 Route: l 15:42: IVPB, Brian 00 ONCE, Dosing Weight 96.364, kg, Priority: STAT, Start date: 11/30/19 10:42:00 CDT, Stop date: 11/30/19 10:42:00 CDT, ABX Indication : Skin/Soft Tissue Infection Clindamycin 2020-0 No 600 mg, Mem oria 6-04 Route: l 15:42: IVPB, Brian 00 ONCE, Dosing Weight 96.364, kg, Priority: STAT, Start date: 11/30/19 10:42:00 CDT, Stop date: 11/30/19 10:42:00 CDT, ABX Indication : Skin/Soft Tissue Infection Clindamycin 2020-0 No 600 mg, Mem oria 6-04 Route: l 15:42: IVPB, [place] 00 ONCE, Dosing Weight 96.364, kg, Priority: STAT, Start date: 11/30/19 10:42:00 CDT, Stop date: 11/30/19 10:42:00 CDT, ABX Indication : Skin/Soft Tissue Infection Clindamycin 2020-0 No 600 mg, Mem oria 6-04 Route: l 15:42: IVPB, Brian 00 ONCE, Dosing Weight 96.364, kg, Priority: STAT, Start date: 11/30/19 10:42:00 CDT, Stop date: 11/30/19 10:42:00 CDT, ABX Indication : Skin/Soft Tissue Infection Clindamycin No 600 mg, Mem oria 11-29 Route: l 15:42: IVPB, [place] 00 ONCE, Dosing Weight 96.364, kg, Priority: STAT, Start date: 11/30/19 10:42:00 CDT, Stop date: 11/30/19 10:42:00 CDT, ABX Indication : Skin/Soft Tissue Infection Acetaminoph No Notes: Jacinto margarita en 325 MG / 11-29 (Same as: l Hydrocodone 15:04: Lerona Marika nn Bitartrate 00 325/5) Do 5 MG Oral not exceed Tablet 4gm/day of [Lerona acetaminop 5/325] hen. Acetaminoph No Notes: Jacinto margarita en 325 MG / 11-29 (Same as: l Hydrocodone 15:04: Lerona Marika nn Bitartrate 00 325/5) Do 5 MG Oral not exceed Tablet 4gm/day of [L[place] acetaminop 5/325] hen. Acetaminoph No Notes: Jacinto margarita en 325 MG / 11-29 (Same as: l Hydrocodone 15:04: Lerona Marika nn Bitartrate 00 325/5) Do 5 MG Oral not exceed Tablet 4gm/day of [L[place] acetaminop 5/325] hen. Acetaminoph No Notes: Jacinto margarita en 325 MG / 11-29 (Same as: l Hydrocodone 15:04: Lerona Marika nn Bitartrate 00 325/5) Do 5 MG Oral not exceed Tablet 4gm/day of [L[place] acetaminop 5/325] hen. Acetaminoph No Notes: Jacinto margarita en 325 MG / 11-29 (Same as: l Hydrocodone 15:04: Lerona Marika nn Bitartrate 00 325/5) Do 5 MG Oral not exceed Tablet 4gm/day of [L[place] acetaminop 5/325] hen. Acetaminoph No Notes: Jacinto margarita en 325 MG / 11-29 (Same as: l Hydrocodone 15:04: Lerona Marika nn Bitartrate 00 325/5) Do 5 MG Oral not exceed Tablet 4gm/day of [L[place] acetaminop 5/325] hen. Acetaminoph No Notes: Jacinto margarita en 325 MG / 11-29 (Same as: l Hydrocodone 15:04: Lerona Marika nn Bitartrate 00 325/5) Do 5 MG Oral not exceed Tablet 4gm/day of [L[place] acetaminop 5/325] hen. Acetaminoph No Notes: Jacinto margarita en 325 MG / 11-29 (Same as: l Hydrocodone 15:04: Lerona Marika nn Bitartrate 00 325/5) Do 5 MG Oral not exceed Tablet 4gm/day of [[place] acetaminop 5/325] hen. Acetaminoph No Notes: Jacinto margarita en 325 MG / 11-29 (Same as: l Hydrocodone 15:04: Lerona Marika nn Bitartrate 00 325/5) Do 5 MG Oral not exceed Tablet 4gm/day of [[place] acetaminop 5/325] hen. Acetaminoph No Notes: Jacinto margarita en 325 MG / 11-29 (Same as: l Hydrocodone 15:04: Lerona Marika nn Bitartrate 00 325/5) Do 5 MG Oral not exceed Tablet 4gm/day of [[place] acetaminop 5/325] hen. Acetaminoph No Notes: Jacinto margarita en 325 MG / 11-29 (Same as: l Hydrocodone 15:04: Lerona Marika nn Bitartrate 00 325/5) Do 5 MG Oral not exceed Tablet 4gm/day of [[place] acetaminop 5/325] hen. Acetaminoph No Notes: Jacinto margarita en 325 MG / 11-29 (Same as: l Hydrocodone 15:04: Lerona Marika nn Bitartrate 00 325/5) Do 5 MG Oral not exceed Tablet 4gm/day of [Lerona acetaminop 5/325] hen. Sodium No 1,000 mL, Memori a Chloride 11-29 1,000 l 0.9% 15:03: ml/hr, Brian (Bolus) IV 00 Infuse Over: 1 hr, Route: IV, 1,000, Drug form: INJ, ONCE, Priority: STAT, Dosing Weight 96.364 kg, Start date: 11/30/19 10:03:00 CDT, Stop date: 11/30/19 10:03:00 CDT, 0 Sodium 2020-0 No 1,000 mL, Memori a Chloride 6-04 1,000 l 0.9% 15:03: ml/hr, Brian (Bolus) IV 00 Infuse Over: 1 hr, Route: IV, 1,000, Drug form: INJ, ONCE, Priority: STAT, Dosing Weight 96.364 kg, Start date: 11/30/19 10:03:00 CDT, Stop date: 11/30/19 10:03:00 CDT, 0 Sodium 2020-0 No 1,000 mL, Memori a Chloride 6-04 1,000 l 0.9% 15:03: ml/hr, Brian (Bolus) IV 00 Infuse Over: 1 hr, Route: IV, 1,000, Drug form: INJ, ONCE, Priority: STAT, Dosing Weight 96.364 kg, Start date: 11/30/19 10:03:00 CDT, Stop date: 11/30/19 10:03:00 CDT, 0 Sodium 2020-0 No 1,000 mL, Memori a Chloride 6-04 1,000 l 0.9% 15:03: ml/hr, Brian (Bolus) IV 00 Infuse Over: 1 hr, Route: IV, 1,000, Drug form: INJ, ONCE, Priority: STAT, Dosing Weight 96.364 kg, Start date: 11/30/19 10:03:00 CDT, Stop date: 11/30/19 10:03:00 CDT, 0 Sodium 2020-0 No 1,000 mL, Memori a Chloride 6-04 1,000 l 0.9% 15:03: ml/hr, Brian (Bolus) IV 00 Infuse Over: 1 hr, Route: IV, 1,000, Drug form: INJ, ONCE, Priority: STAT, Dosing Weight 96.364 kg, Start date: 11/30/19 10:03:00 CDT, Stop date: 11/30/19 10:03:00 CDT, 0 Sodium 2020-0 No 1,000 mL, Memori a Chloride 6-04 1,000 l 0.9% 15:03: ml/hr, Brian (Bolus) IV 00 Infuse Over: 1 hr, Route: IV, 1,000, Drug form: INJ, ONCE, Priority: STAT, Dosing Weight 96.364 kg, Start date: 11/30/19 10:03:00 CDT, Stop date: 11/30/19 10:03:00 CDT, 0 Sodium 2020-0 No 1,000 mL, Memori a Chloride 6-04 1,000 l 0.9% 15:03: ml/hr, Brian (Bolus) IV 00 Infuse Over: 1 hr, Route: IV, 1,000, Drug form: INJ, ONCE, Priority: STAT, Dosing Weight 96.364 kg, Start date: 11/30/19 10:03:00 CDT, Stop date: 11/30/19 10:03:00 CDT, 0 Sodium 2020-0 No 1,000 mL, Memori a Chloride 6-04 1,000 l 0.9% 15:03: ml/hr, [place] (Bolus) IV 00 Infuse Over: 1 hr, Route: IV, 1,000, Drug form: INJ, ONCE, Priority: STAT, Dosing Weight 96.364 kg, Start date: 11/30/19 10:03:00 CDT, Stop date: 11/30/19 10:03:00 CDT, 0 Sodium 2020-0 No 1,000 mL, Memori a Chloride 6-04 1,000 l 0.9% 15:03: ml/hr, Brian (Bolus) IV 00 Infuse Over: 1 hr, Route: IV, 1,000, Drug form: INJ, ONCE, Priority: STAT, Dosing Weight 96.364 kg, Start date: 11/30/19 10:03:00 CDT, Stop date: 11/30/19 10:03:00 CDT, 0 Sodium 2020-0 No 1,000 mL, Memori a Chloride 6-04 1,000 l 0.9% 15:03: ml/hr, Brian (Bolus) IV 00 Infuse Over: 1 hr, Route: IV, 1,000, Drug form: INJ, ONCE, Priority: STAT, Dosing Weight 96.364 kg, Start date: 11/30/19 10:03:00 CDT, Stop date: 11/30/19 10:03:00 CDT, 0 Sodium 2020-0 No 1,000 mL, Memori a Chloride 6-04 1,000 l 0.9% 15:03: ml/hr, Brian (Bolus) IV 00 Infuse Over: 1 hr, Route: IV, 1,000, Drug form: INJ, ONCE, Priority: STAT, Dosing Weight 96.364 kg, Start date: 11/30/19 10:03:00 CDT, Stop date: 11/30/19 10:03:00 CDT, 0 Sodium 2020-0 No 1,000 mL, Memori a Chloride 11-29 1,000 l 0.9% 15:03: ml/hr, [place] (Bolus) IV 00 Infuse Over: 1 hr, Route: IV, 1,000, Drug form: INJ, ONCE, Priority: STAT, Dosing Weight 96.364 kg, Start date: 11/30/19 10:03:00 CDT, Stop date: 11/30/19 10:03:00 CDT, 0 methocarbam 2021- No 500mg 500 mg. As [facility] 11-[address] (ROBAXIN) 00:00: 00:00 Hosp[facility] 500 MG 00 :00 l tablet nitroglycer 2021- No .4mg 0.4 mg. As Methodi in 11-[address] (NITROSTAT) 00:00: 00:00 Hospi ta 0.4 MG SL 00 :00 l tablet Acetaminoph Yes 1 tab, PO, Memoria en 300 MG / 7-10 Q4H, PRN l Codeine 00:52: Pain, X 3 Marika nn Phosphate 00 day, # 18 30 MG Oral tab, 0 Tablet Refill(s) [Tylenol with Codeine #3] Acetaminoph Yes 1 tab, PO, Memoria en 300 MG / 7-10 Q4H, PRN l Codeine 00:52: Pain, X 3 Marika nn Phosphate 00 day, # 18 30 MG Oral tab, 0 Tablet Refill(s) [Tylenol with Codeine #3] Acetaminoph Yes 1 tab, PO, Memoria en 300 MG / 7-10 Q4H, PRN l Codeine 00:52: Pain, X 3 Marika nn Phosphate 00 day, # 18 30 MG Oral tab, 0 Tablet Refill(s) [Tylenol with Codeine #3] Acetaminoph Yes 1 tab, PO, Memoria en 300 MG / 7-10 Q4H, PRN l Codeine 00:52: Pain, X 3 Marika nn Phosphate 00 day, # 18 30 MG Oral tab, 0 Tablet Refill(s) [Tylenol with Codeine #3] Acetaminoph Yes 1 tab, PO, Memoria en 300 MG / 7-10 Q4H, PRN l Codeine 00:52: Pain, X 3 Marika nn Phosphate 00 day, # 18 30 MG Oral tab, 0 Tablet Refill(s) [Tylenol with Codeine #3] Acetaminoph Yes 1 tab, PO, Memoria en 300 MG / 7-10 Q4H, PRN l Codeine 00:52: Pain, X 3 Marika nn Phosphate 00 day, # 18 30 MG Oral tab, 0 Tablet Refill(s) [Tylenol with Codeine #3] Acetaminoph Yes 1 tab, PO, Memoria en 300 MG / 7-10 Q4H, PRN l Codeine 00:52: Pain, X 3 Marika nn Phosphate 00 day, # 18 30 MG Oral tab, 0 Tablet Refill(s) [Tylenol with Codeine #3] Acetaminoph Yes 1 tab, PO, Memoria en 300 MG / 7-10 Q4H, PRN l Codeine 00:52: Pain, X 3 Marika nn Phosphate 00 day, # 18 30 MG Oral tab, 0 Tablet Refill(s) [Tylenol with Codeine #3] Acetaminoph Yes 1 tab, PO, Memoria en 300 MG / 7-10 Q4H, PRN l Codeine 00:52: Pain, X 3 Marika nn Phosphate 00 day, # 18 30 MG Oral tab, 0 Tablet Refill(s) [Tylenol with Codeine #3] Acetaminoph Yes 1 tab, PO, Memoria en 300 MG / 7-10 Q4H, PRN l Codeine 00:52: Pain, X 3 Marika nn Phosphate 00 day, # 18 30 MG Oral tab, 0 Tablet Refill(s) [Tylenol with Codeine #3] Acetaminoph Yes 1 tab, PO, Memoria en 300 MG / 7-10 Q4H, PRN l Codeine 00:52: Pain, X 3 Marika nn Phosphate 00 day, # 18 30 MG Oral tab, 0 Tablet Refill(s) [Tylenol with Codeine #3] Acetaminoph 2019-0 Yes 1 tab, PO, Memoria en 300 MG / 7-10 Q4H, PRN l Codeine 00:52: Pain, X 3 Marika nn Phosphate 00 day, # 18 30 MG Oral tab, 0 Tablet Refill(s) [Tylenol with Codeine #3] Cephalexin 2019-0 Yes 500 mg = 1 M emoria 500 MG Oral 7-10 cap, PO, l Capsule 00:51: QID, X 7 Cody n [Keflex] 00 day, # 28 cap, 0 Refill(s) Cephalexin 2019-0 Yes 500 mg = 1 M emoria 500 MG Oral 7-10 cap, PO, l Capsule 00:51: QID, X 7 Cody n [Keflex] 00 day, # 28 cap, 0 Refill(s) Cephalexin 2019-0 Yes 500 mg = 1 M emoria 500 MG Oral 7-10 cap, PO, l Capsule 00:51: QID, X 7 Cody n [Keflex] 00 day, # 28 cap, 0 Refill(s) Cephalexin 2019-0 Yes 500 mg = 1 M emoria 500 MG Oral 7-10 cap, PO, l Capsule 00:51: QID, X 7 Cody n [Keflex] 00 day, # 28 cap, 0 Refill(s) Cephalexin 2019-0 Yes 500 mg = 1 M emoria 500 MG Oral 7-10 cap, PO, l Capsule 00:51: QID, X 7 Cody n [Keflex] 00 day, # 28 cap, 0 Refill(s) Cephalexin 2019-0 Yes 500 mg = 1 M emoria 500 MG Oral 7-10 cap, PO, l Capsule 00:51: QID, X 7 Cody n [Keflex] 00 day, # 28 cap, 0 Refill(s) Cephalexin 2019-0 Yes 500 mg = 1 M emoria 500 MG Oral 7-10 cap, PO, l Capsule 00:51: QID, X 7 Cody n [Keflex] 00 day, # 28 cap, 0 Refill(s) Cephalexin 2019-0 Yes 500 mg = 1 M emoria 500 MG Oral 7-10 cap, PO, l Capsule 00:51: QID, X 7 Cody n [Keflex] 00 day, # 28 cap, 0 Refill(s) Cephalexin 2019-0 Yes 500 mg = 1 M emoria 500 MG Oral 7-10 cap, PO, l Capsule 00:51: QID, X 7 Cody n [Keflex] 00 day, # 28 cap, 0 Refill(s) Cephalexin 2019-0 Yes 500 mg = 1 M emoria 500 MG Oral 7-10 cap, PO, l Capsule 00:51: QID, X 7 Cody n [Keflex] 00 day, # 28 cap, 0 Refill(s) Cephalexin 2019-0 Yes 500 mg = 1 M emoria 500 MG Oral 7-10 cap, PO, l Capsule 00:51: QID, X 7 Cody n [Keflex] 00 day, # 28 cap, 0 Refill(s) Cephalexin 2019-0 Yes 500 mg = 1 M emoria 500 MG Oral 7-10 cap, PO, l Capsule 00:51: QID, X 7 Cody n [Keflex] 00 day, # 28 cap, 0 Refill(s) Sodium 2019-0 No 1,000 mL, Memori a Chloride 7-09 Infuse l 0.9% 21:38: Over: 1 [place] (Bolus) IV 00 hr, Route: IV, ONCE, Priority: STAT, Dosing Weight 95.182 kg, Start date: 01/03/19 16:38:00 CDT, Stop date: 01/03/19 16:38:00 CDT Saline 2019-0 No Notes: Memoria Flush 0.9% 7-09 (Same as: l 21:38: BD [place] 00 Posiflush) Sodium 2019-0 No 1,000 mL, Memori a Chloride 7-09 Infuse l 0.9% 21:38: Over: 1 [place] (Bolus) IV 00 hr, Route: IV, ONCE, Priority: STAT, Dosing Weight 95.182 kg, Start date: 01/03/19 16:38:00 CDT, Stop date: 01/03/19 16:38:00 CDT Saline 2019-0 No Notes: [facility] Flush 0.9% 7-09 (Same as: l 21:38: BD [place] 00 Posiflush) Sodium 2019-0 No 1,000 mL, Memori a Chloride 7-09 Infuse l 0.9% 21:38: Over: 1 Brian (Bolus) IV 00 hr, Route: IV, ONCE, Priority: STAT, Dosing Weight 95.182 kg, Start date: 01/03/19 16:38:00 CDT, Stop date: 01/03/19 16:38:00 CDT Saline 2019-0 No Notes: [facility] Flush 0.9% 7-09 (Same as: l 21:38: BD [place] 00 Posiflush) Sodium 2019-0 No 1,000 mL, Memori a Chloride 7-09 Infuse l 0.9% 21:38: Over: 1 Brian (Bolus) IV 00 hr, Route: IV, ONCE, Priority: STAT, Dosing Weight 95.182 kg, Start date: 01/03/19 16:38:00 CDT, Stop date: 01/03/19 16:38:00 CDT Saline 2019-0 No Notes: [facility] Flush 0.9% 7-09 (Same as: l 21:38: BD [place] 00 Posiflush) Sodium 2018-0 No 1,000 mL, Memori a Chloride 7-09 Infuse l 0.9% 21:38: Over: 1 Brian (Bolus) IV 00 hr, Route: IV, ONCE, Priority: STAT, Dosing Weight 95.182 kg, Start date: 01/03/19 16:38:00 CDT, Stop date: 01/03/19 16:38:00 CDT Saline 2019-0 No Notes: [facility] Flush 0.9% 7-09 (Same as: l 21:38: BD Brian 00 Posiflush) Sodium 2019-0 No 1,000 mL, Memori a Chloride 7-09 Infuse l 0.9% 21:38: Over: 1 [place] (Bolus) IV 00 hr, Route: IV, ONCE, Priority: STAT, Dosing Weight 95.182 kg, Start date: 01/03/19 16:38:00 CDT, Stop date: 01/03/19 16:38:00 CDT Saline 2019-0 No Notes: [facility] Flush 0.9% 7-09 (Same as: l 21:38: BD [place] 00 Posiflush) Sodium 2019-0 No 1,000 mL, Memori a Chloride 7-09 Infuse l 0.9% 21:38: Over: 1 [place] (Bolus) IV 00 hr, Route: IV, ONCE, Priority: STAT, Dosing Weight 95.182 kg, Start date: 01/03/19 16:38:00 CDT, Stop date: 01/03/19 16:38:00 CDT Saline 2018-0 No Notes: [facility] Flush 0.9% 7-09 (Same as: l 21:38: BD [place] 00 Posiflush) Sodium 20190 No 1,000 mL, Memori a Chloride 7-09 Infuse l 0.9% 21:38: Over: 1 [place] (Bolus) IV 00 hr, Route: IV, ONCE, Priority: STAT, Dosing Weight 95.182 kg, Start date: 01/03/19 16:38:00 CDT, Stop date: 01/03/19 16:38:00 CDT Saline 2018-0 No Notes: [facility] Flush 0.9% 7-09 (Same as: l 21:38: BD Brian 00 Posiflush) Sodium 0 No 1,000 mL, Memori a Chloride 7-09 Infuse l 0.9% 21:38: Over: 1 Brian (Bolus) IV 00 hr, Route: IV, ONCE, Priority: STAT, Dosing Weight 95.182 kg, Start date: 01/03/19 16:38:00 CDT, Stop date: 01/03/19 16:38:00 CDT Saline 2019-0 No Notes: [facility] Flush 0.9% 7-09 (Same as: l 21:38: BD [place] 00 Posiflush) Sodium 20190 No 1,000 mL, Memori a Chloride 7-09 Infuse l 0.9% 21:38: Over: 1 Brian (Bolus) IV 00 hr, Route: IV, ONCE, Priority: STAT, Dosing Weight 95.182 kg, Start date: 01/03/19 16:38:00 CDT, Stop date: 01/03/19 16:38:00 CDT Saline 20190 No Notes: [facility] Flush 0.9% 7-09 (Same as: l 21:38: BD [place] 00 Posiflush) Sodium 20190 No 1,000 mL, Memori a Chloride 7-09 Infuse l 0.9% 21:38: Over: 1 Brian (Bolus) IV 00 hr, Route: IV, ONCE, Priority: STAT, Dosing Weight 95.182 kg, Start date: 01/03/19 16:38:00 CDT, Stop date: 01/03/19 16:38:00 CDT Saline No Notes: [facility] Flush 0.9% 7 (Same as: l 21:38: BD [place] 00 Posiflush) Sodium No 1,000 mL, Memori a Chloride 7- Infuse l 0.9% 21:38: Over: 1 [place] (Bolus) IV 00 hr, Route: IV, ONCE, Priority: STAT, Dosing Weight 95.182 kg, Start date: 01/03/19 16:38:00 CDT, Stop date: 01/03/19 16:38:00 CDT Saline No Notes: [facility] Flush 0.9% 01-03 (Same as: l 21:38: BD [place] 00 Posiflush) clindamycin Yes 300 mg = 1 Memoria 300 mg oral 8-25 cap, PO, l capsule 13:23: Q6H, X 10 Marika nn 00 day, # 40 cap, 0 Refill(s) clindamycin Yes 300 mg = 1 Memoria 300 mg oral 8-25 cap, PO, l capsule 13:23: Q6H, X 10 Marika nn 00 day, # 40 cap, 0 Refill(s) clindamycin 0 Yes 300 mg = 1 Memoria 300 mg oral 8-25 cap, PO, l capsule 13:23: Q6H, X 10 Marika nn 00 day, # 40 cap, 0 Refill(s) clindamycin 0 Yes 300 mg = 1 Mem[facility] 300 mg oral 8-25 cap, PO, l capsule 13:23: Q6H, X 10 Marika nn 00 day, # 40 cap, 0 Refill(s) clindamycin Yes 300 mg = 1 Memoria 300 mg oral 8-25 cap, PO, l capsule 13:23: Q6H, X 10 Marika nn 00 day, # 40 cap, 0 Refill(s) clindamycin 0 Yes 300 mg = 1 Memoria 300 mg oral 8-25 cap, PO, l capsule 13:23: Q6H, X 10 Marika day, # 40 cap, 0 Refill(s) clindamycin 2016-0 Yes 300 mg = 1 Memoria 300 mg oral 8-25 cap, PO, l capsule 13:23: Q6H, X 10 Marika nn 00 day, # 40 cap, 0 Refill(s) clindamycin 2016-0 Yes 300 mg = 1 Memoria 300 mg oral 8-25 cap, PO, l capsule 13:23: Q6H, X 10 Marika 00 day, # 40 cap, 0 Refill(s) clindamycin 2016-0 Yes 300 mg = 1 Memoria 300 mg oral 8-25 cap, PO, l capsule 13:23: Q6H, X 10 Mar[place] day, # 40 cap, 0 Refill(s) clindamycin 2016-0 Yes 300 mg = 1 Memoria 300 mg oral 8-25 cap, PO, l capsule 13:23: Q6H, X 10 Marika day, # 40 cap, 0 Refill(s) clindamycin 2016-0 Yes 300 mg = 1 Memoria 300 mg oral 8-25 cap, PO, l capsule 13:23: Q6H, X 10 Mar[place] day, # 40 cap, 0 Refill(s) clindamycin 2016-0 Yes 300 mg = 1 Memoria 300 mg oral 8-25 cap, PO, l capsule 13:23: Q6H, X 10 Marika day, # 40 cap, 0 Refill(s) LET topical 2016-0 No 3 mL, Memor ia 8-25 Route: l 12:49: TOP, ONCE, Drug form: GEL, Priority: Stat, Start date: 02/20/16 7:49:00 CDT, Stop date: 02/20/16 7:49:00 CDT LET topical 2016-0 No 3 mL, Memor ia 8-25 Route: l 12:49: TOP, ONCE, Drug form: GEL, Priority: Stat, Start date: 02/20/16 7:49:00 CDT, Stop date: 02/20/16 7:49:00 CDT LET topical 2016-0 No 3 mL, Memor ia 8-25 Route: l 12:49: TOP, ONCE, Brian 00 Drug form: GEL, Priority: Stat, Start date: 02/20/16 7:49:00 CDT, Stop date: 02/20/16 7:49:00 CDT LET topical 2016-0 No 3 mL, Memor ia 8-25 Route: l 12:49: TOP, ONCE, [place] Drug form: GEL, Priority: Stat, Start date: 02/20/16 7:49:00 CDT, Stop date: 02/20/16 7:49:00 CDT LET topical 2016-0 No 3 mL, Memor ia 8-25 Route: l 12:49: TOP, ONCE, [place] Drug form: GEL, Priority: Stat, Start date: 02/20/16 7:49:00 CDT, Stop date: 02/20/16 7:49:00 CDT LET topical 2016-0 No 3 mL, Memor ia 8-25 Route: l 12:49: TOP, ONCE, [place] Drug form: GEL, Priority: Stat, Start date: 02/20/16 7:49:00 CDT, Stop date: 02/20/16 7:49:00 CDT LET topical 2016-0 No 3 mL, Memor ia 8-25 Route: l 12:49: TOP, ONCE, [place] 00 Drug form: GEL, Priority: Stat, Start date: 02/20/16 7:49:00 CDT, Stop date: 02/20/16 7:49:00 CDT LET topical 2016-0 No 3 mL, Memor ia 8-25 Route: l 12:49: TOP, ONCE, [place] Drug form: GEL, Priority: Stat, Start date: 02/20/16 7:49:00 CDT, Stop date: 02/20/16 7:49:00 CDT LET topical 2016-0 No 3 mL, Memor ia 8-25 Route: l 12:49: TOP, ONCE, Brian Drug form: GEL, Priority: Stat, Start date: 02/20/16 7:49:00 CDT, Stop date: 02/20/16 7:49:00 CDT LET topical 2016-0 No 3 mL, Memor ia 8-25 Route: l 12:49: TOP, ONCE, Brian 00 Drug form: GEL, Priority: Stat, Start date: 02/20/16 7:49:00 CDT, Stop date: 02/20/16 7:49:00 CDT LET topical 2016-0 No 3 mL, Memor ia 8- Route: l 12:49: TOP, ONCE, Drug form: GEL, Priority: Stat, Start date: 02/20/16 7:49:00 CDT, Stop date: 02/20/16 7:49:00 CDT LET topical 2016-0 No 3 mL, Memor ia 8 Route: l 12:49: TOP, ONCE, Drug form: GEL, Priority: Stat, Start date: 02/20/16 7:49:00 CDT, Stop date: 02/20/16 7:49:00 CDT Immunizations Ordered Immunization Filled Date Status Comments Sour ce Name Immunization Name FLUCELVAX QUAD PF 2021-06-[address] 00[facility]00:00 [facility] FLUCELVAX QUAD PF 2021-06-[address] 00:00:00 [facility] PFIZER COVID-19 MRNA 2021-06-02 Completed [facility] VACCINATION 00:00:00 [facility] PFIZER COVID-19 MRNA 2021-06-02 Completed [facility] VACCINATION 00:00:00 [facility] PFIZER COVID-19 MRNA 2020-10-15 Completed [facility] VACCINATION 00:00:00 [facility] PFIZER COVID-19 MRNA 2020-10-15 Completed [facility] VACCINATION 00:00:00 [facility] PFIZER COVID-19 MRNA 2020-09-24 Completed [facility] VACCINATION 00:00:00 [facility] PFIZER COVID-19 MRNA 2020-09-24 Completed [facility] VACCINATION 00:00:00 [facility] FLUCELVAX QUAD PF 2020-03-[address] 00:[facility]:00 [facility] FLUCELVAX QUAD PF 2020-03-[address] 00:00:00 [facility] FLUCELVAX QUAD PF 2019-03-[address] 00:00:00 [facility] FLUCELVAX QUAD PF 2019-03-[address] 00:00:00 [facility] pneumococcal 2013-05-20 Completed [facility] 23-valent vaccine 15:30:00 [place] pneumococcal 2013-05-20 Completed [facility] 23-valent vaccine 15:30:00 [place] pneumococcal 2013-05-20 Completed [facility] 23-valent vaccine 15:30:00 [place] pneumococcal 2013-05-20 Completed [facility] 23-valent vaccine 15:30:00 [place] pneumococcal 2013-05-20 Completed [facility] 23-valent vaccine 15:30:00 [place] pneumococcal 2013-05-20 Completed [facility] 23-valent vaccine 15:30:00 [place] pneumococcal 2013-05-20 Completed [facility] 23-valent vaccine 15:30:00 [place] pneumococcal 2013-05-20 Completed [facility] 23-valent vaccine 15:30:00 [place] pneumococcal 2013-05-20 Completed [facility] 23-valent vaccine 15:30:00 [place] pneumococcal 2013-05-20 Completed [facility] 23-valent vaccine 15:30:00 [place] pneumococcal 2013-05-20 Completed [facility] 23-valent vaccine 15:30:00 [place] Pneumococcal 2013-05-20 Completed [facility] Polysaccharide 00:00:00 [facility] Pneumococcal 2013-05-20 Completed [facility] Polysaccharide 00:00:00 [facility] FLUCELVAX QUAD PF Unknown Completed [facility] PFIZER COVID-19 MRNA Unknown Completed [facility] PFIZER COVID-19 MRNA Unknown Completed [facility] FLUCELVAX QUAD PF Unknown Completed [facility] Pneumococcal Unknown Completed [facility] Polysaccharide [facility] PFIZER COVID-19 MRNA Unknown Completed [facility] FLUCELVAX QUAD PF Unknown Completed [facility] pneumococcal Unknown Completed [facility] 23-valent vaccine [place] Vital Signs Vital Name Observation Time Observation Value Comments Source Body height 2022-08-27 15:00:00 162.6 cm [facility] Body weight 2022-08-27 15:00:00 66.225 kg [facility] BMI 2022-08-27 15:00:00 25.06 kg/m2 [facility] Systolic blood 2022-08-05 20:41:00 188 mm[Hg] [facility] pressure Diastolic blood 2022-08-05 20:41:00 81 mm[Hg] [facility] pressure Heart rate 2022-08-05 16:52:00 73 /min [facility] Oxygen saturation in 2022-08-05 16:52:00 97 /min [facility] Arterial blood by Pulse oximetry Body temperature 2022-08-05 14:11:48 36.06 [facility] Respiratory rate 2022-08-05 14:11:48 19 /min [facility] Systolic blood 2022-01-02 19:51:00 113 mm[Hg] [facility] pressure Diastolic blood 2022-01-02 19:51:00 62 mm[Hg] [facility] pressure Heart rate 2022-01-02 19:51:00 91 /min [facility] Respiratory rate 2022-01-02 19:51:00 10 /min [facility] Body height 2022-01-02 19:51:00 162.6 cm [facility] Body weight 2022-01-02 19:51:00 69.854 kg [facility] BMI 2022-01-02 19:51:00 26.43 kg/m2 [facility] Oxygen saturation in 2022-01-02 19:51:00 100 /min [facility] Arterial blood by Pulse oximetry Body temperature 2021-11-21 13:35:00 36.56 Malathi [facility] Temperature Oral (F) 2019-12-13 16:58:00 98.4 F [facility] Heart Rate 2019-12-13 16:58:00 [facility] [place] Respitory Rate 2019-12-13 16:58:00 [facility] [place] Systolic (mm Hg) 2019-12-13 16:58:00 Jacinto rial Brian Diastolic (mm Hg) 2019-12-13 16:58:00 Mem orial [place] Temperature Oral (F) 2019-12-13 13:10:00 98.2 F [facility] Brian Heart Rate 2019-12-13 13:10:00 [facility] [place] Respitory Rate 2019-12-13 13:10:00 Memori al [facility] Systolic (mm Hg) 2019-12-13 13:10:00 Jacinto rial Brian Diastolic (mm Hg) 2019-12-13 13:10:00 Mem orial [place] Temperature Oral (F) 2019-12-13 08:20:00 98.8 F [facility] Heart Rate 2019-12-13 08:20:00 [facility] [place] Respitory Rate 2019-12-13 08:20:00 Memori al [place] Systolic (mm Hg) 2019-12-13 08:20:00 Jacinto rial [place] Diastolic (mm Hg) 2019-12-13 08:20:00 Mem orial [place] Height 2019-12-07 01:00:00 160.02 cm [facility] Weight 2019-12-07 01:00:00 [facility] [place] BMI Calculated 2019-12-07 01:00:00 [facility] [place] Height 2019-12-06 03:08:00 160.02 cm [facility] [place] BMI Calculated 2019-12-06 03:08:00 [facility] Weight 2019-12-06 03:08:00 [facility] Systolic (mm Hg) 2019-12-01 12:39:00 Jacinto rial Brian Diastolic (mm Hg) 2019-12-01 12:39:00 Mem orial [place] Respitory Rate 2019-12-01 12:39:00 Memori al [facility] Heart Rate 2019-12-01 12:39:00 [facility] [place] Temperature Oral (F) 2019-12-01 12:39:00 98.3 F [facility] Temperature Oral (F) 2019-12-01 08:54:00 98.8 F [facility] [place] Heart Rate 2019-12-01 08:54:00 [facility] [place] Respitory Rate 2019-12-01 08:54:00 [facility] [place] Systolic (mm Hg) 2019-12-01 08:54:00 Jacinto rial Brian Diastolic (mm Hg) 2019-12-01 08:54:00 Mem orial [place] Temperature Oral (F) 2019-12-01 04:40:00 99.3 F [facility] [place] Heart Rate 2019-12-01 04:40:00 [facility] [place] Respitory Rate 2019-12-01 04:40:00 Memori al [facility] Systolic (mm Hg) 2019-12-01 04:40:00 Jacinto rial [place] Diastolic (mm Hg) 2019-12-01 04:40:00 Mem orial Brian Height 2019-11-30 23:23:00 160.02 cm [facility] Weight 2019-11-30 23:23:00 [facility] [place] BMI Calculated 2019-11-30 23:23:00 [facility] Height 2019-11-30 14:49:00 157.48 cm [facility] [place] BMI Calculated 2019-11-30 14:49:00 [facility] Weight 2019-11-30 14:49:00 [facility] Respitory Rate 2019-01-04 01:06:00 [facility] [place] Systolic (mm Hg) 2019-01-04 01:06:00 Jacinto rial [place] Diastolic (mm Hg) 2019-01-04 01:06:00 Mem orial Brian Heart Rate 2019-01-04 01:06:00 [facility] Weight 2019-01-03 21:32:00 [facility] [place] Heart Rate 2019-01-03 21:32:00 [facility] [place] Systolic (mm Hg) 2019-01-03 21:32:00 Jacinto rial [place] Diastolic (mm Hg) 2019-01-03 21:32:00 Mem orial Brian Temperature Oral (F) 2019-01-03 21:32:00 98.4 F [facility] Height 2019-01-03 21:32:00 160.02 cm [facility] BMI Calculated 2019-01-03 21:32:00 Mem[facility] Respitory Rate 2019-01-03 21:32:00 [facility] al [place] Systolic (mm Hg) 2016-02-20 13:45:00 Jacinto rial [place] Diastolic (mm Hg) 2016-02-20 13:45:00 Mem orial Brian Respitory Rate 2016-02-20 13:45:00 Memori al [facility] Heart Rate 2016-02-20 13:45:00 [facility] Temperature Oral (F) 2016-02-20 12:13:00 97.8 F [facility] BMI Calculated 2016-02-20 12:13:00 [facility] [place] Height 2016-02-20 12:13:00 160.02 cm [facility] [place] Weight 2016-02-20 12:13:00 [facility] Systolic (mm Hg) 2016-02-20 12:13:00 Jacinto rial Brian Diastolic (mm Hg) 2016-02-20 12:13:00 Mem orial [place] Heart Rate 2016-02-20 12:13:00 [facility] Respitory Rate 2016-02-20 12:13:00 Memori al [facility] Procedures Procedure Date / Time Performing Clinician Source Performed DURABLE MEDICAL EQUIPMENT 2022-08-05 Nguyen E[facility] 21:18:08 Shiv POC GLUCOSE 2022-08-05 [facility] 14:11:00 Shiv POC GLUCOSE 2022-08-05 Jul[facility] 03:25:00 Shiv POC GLUCOSE 2022-08-04 Julisa, [facility] 23:43:00 Shiv POC GLUCOSE 2022-08-04 Julisa, [facility] 17:42:00 Shiv POC GLUCOSE 2022-08-04 Julisa, [facility] 14:39:00 Shiv POC GLUCOSE 2022-08-04 Julisa, [facility] 03:39:00 Shiv POC GLUCOSE 2022-08-03 Julisa, [facility] 23:39:00 Shiv POC GLUCOSE 2022-08-03 Julisa, [facility] 17:50:00 Shiv POC GLUCOSE 2022-08-03 Julisa, [facility] 14:11:00 Shiv CBC HEMOGRAM 2022-08-03 Julisa, [facility] 11:35:00 Shiv POC GLUCOSE 2022-08-03 Julisa, [facility] 03:07:00 Shiv POC GLUCOSE 2022-08-02 Julisa, [facility] 23:58:00 Shiv POC GLUCOSE 2022-08-02 Julisa, [facility] 18:56:00 Shiv POC GLUCOSE 2022-08-02 Julisa, [facility] 14:36:00 Shiv POC GLUCOSE 2022-08-02 Julisa, [facility] 03:24:00 Shiv POC GLUCOSE 2022-08-01 Julisa, [facility] 23:49:00 Shiv POC GLUCOSE 2022-08-01 Julisa, [facility] 18:01:00 Shiv POC GLUCOSE 2022-08-01 Casie, [facility] [place] [facility] 13:52:00 CBC WITH PLATELET AND 2022-08-01 [facility] DIFFERENTIAL 11:43:00 BASIC METABOLIC PANEL 2022-08-01 [facility] 11:43:00 MAGNESIUM LEVEL 2022-08-01 [facility] Hospit al 11:43:00 ESTIMATED GFR 2022-08-01 [facility] 11:43:00 LACTIC ACID LEVEL, SEPSIS - 2022-08-01 [facility], [facility] NOW AND REPEAT 2X EVERY 3 00:02:00 HOURS COVID-19 QUALITATIVE RT-PCR 2022-07-31 [facility], [facility] 20:52:00 LACTIC ACID LEVEL, SEPSIS - 2022-07-31 [facility], [facility] NOW AND REPEAT 2X EVERY 3 20:52:00 HOURS URINE CULTURE 2022-07-31 [facility], [facility] spital 18:19:00 BLOOD CULTURE, AEROBIC & 2022-07-31 [facility], [facility] ANAEROBIC 18:03:00 CT ABDOMEN PELVIS WO CONTRAST 2022-07-31 [facility], [facility] 17:43:46 XR CHEST 1 VW PORTABLE 2022-07-31 [facility], [facility] 17:26:00 URINALYSIS SCREEN AND 2022-07-31 [facility], [facility] MICROSCOPY, WITH REFLEX TO 16:46:00 CULTURE CBC WITH PLATELET AND 2022-07-31 [facility], [facility] DIFFERENTIAL 16:44:00 COMPREHENSIVE METABOLIC PANEL 2022-07-31 [facility], [facility] 16:44:00 LIPASE LEVEL 2022-07-31 [facility], [facility] spital 16:44:00 LACTIC ACID LEVEL, SEPSIS - 2022-07-31 [facility], [facility] NOW AND REPEAT 2X EVERY 3 16:44:00 HOURS ESTIMATED GFR 2022-07-31 [facility], [facility] spital 16:44:00 POC GLUCOSE 2022-07-17 [facility] 22:11:00 POC [facility]UCOSE 2022-07-17 [facility] 18:48:00 COVID-19 QUALITATIVE RT-PCR 2022-07-17 Jeannie Yi [facility] 09:36:00 CBC HEMOGRAM 2022-07-17 Zindani, [facility] 09:36:00 BASIC METABOLIC PANEL 2022-07-17 [facility] 09:36:00 ESTIMATED GFR 2022-07-17 Kassidy, [facility] 09:36:00 POC GLUCOSE 2022-07-17 Zindrashad, [facility] 03:09:00 POC GLUCOSE 2022-07-16 Zindrashad, [facility] ignny 23:47:00 POC GLUCOSE 2022-07-16 Zindrashad, [facility] 18:23:00 POC GLUCOSE 2022-07-16 Zindrashad, [facility] 14:14:00 CBC HEMOGRAM 2022-07-16 Alvinalis, [facility] [facility] 10:28:00 COMPREHENSIVE METABOLIC PANEL 2022-07-16 [facility] 10:28:00 ESTIMATED GFR 2022-07-16 Alvinalis, [facility] [place] [facility] 10:28:00 POC GLUCOSE 2022-07-16 Zindrashad, [facility] 03:13:00 URINE CULTURE 2022-07-16 Zialis, [facility] [place] [facility] 03:12:00 POC GLUCOSE 2022-07-15 Zialis, [facility] [place] [facility] 23:52:00 BLOOD CULTURE, AEROBIC & 2022-07-15 [facility] ANAEROBIC 22:08:00 BLOOD CULTURE, AEROBIC & 2022-07-15 [facility] 22:07:00 URINALYSIS SCREEN AND 2022-07-15 [facility] MICROSCOPY, WITH REFLEX TO 22:05:00 CULTURE POC GLUCOSE 2022-07-15 Zindrashad, [facility] [place] [facility] 18:40:00 POC GLUCOSE 2022-07-15 Zindrashad, [facility] [place] [facility] 14:09:00 CBC HEMOGRAM 2022-07-15 Alvinalis, [facility] [place] [facility] 10:58:00 COMPREHENSIVE METABOLIC PANEL 2022-07-15 [facility] 10:58:00 CREATE PERIPHERAL SMEAR FOR 2022-07-15 Vilmaani, [facility] ORDERING PROVIDER'S REVIEW 10:58:00 ESTIMATED GFR 2022-07-15 [facility]inalis [facility] 10:58:00 POC GLUCOSE 2022-07-15 Alvinalis [facility] 03:00:00 POC GLUCOSE 2022-07-14 Avlinalis, [facility] 23:27:00 POC GLUCOSE 2022-07-14 Alvinalis [facility] 17:51:00 POC GLUCOSE 2022-07-14 Alvinalis [facility] 14:10:00 POC GLUCOSE 2022-07-[address] [facility] [place] [facility] 03:36:00 POC GLUCOSE 2022-07-13 Alvinalis [facility] 23:27:00 POC GLUCOSE 2022-07-[address] [facility] [place] [facility] 18:21:00 POC GLUCOSE 2022-07-13 Alvinalis [facility] 13:48:00 CBC HEMOGRAM 2022-07-13 [facility] 11:00:00 BASIC METABOLIC PANEL 2022-07-13 [facility]00 ESTIMATED GFR 2022-07-13 [facility] 11:00:00 POC GLUCOSE 2022-07-13 [facility] 02:43:00 POC GLUCOSE 2022-07-13 Vilmarashad [facility] 00:30:00 POC GLUCOSE 2022-07-12 Alvinndrashad [facility] 18:15:00 POC GLUCOSE 2022-07-12 Alvinndrashad [facility] 14:28:00 CBC HEMOGRAM 2022-07-[address] [facility] [place] 10:17:00 BASIC METABOLIC PANEL 2022-07-12 [facility] 10:17:00 ESTIMATED GFR 2022-07-12 [facility]is [facility] 10:17:00 POC GLUCOSE 2022-07-12 Vilmarashad [facility] 03:10:00 POC GLUCOSE 2022-07-11 [facility] 23:53:00 POC GLUCOSE 2022-07-11 [facility] 18:57:00 POC GLUCOSE 2022-07-11 [facility] 14:01:00 CBC HEMOGRAM 2022-07-11 [facility] 10:42:00 COMPREHENSIVE METABOLIC PANEL 2022-07-11 [facility]00 ESTIMATED GFR 2022-07-11 [facility] 10:42:00 POC GLUCOSE 2022-07-11 Kassidy [facility] 03:56:00 POC GLUCOSE 2022-07-11 [facility] 00:01:00 POC GLUCOSE 2022-07-10 [facility] 19:04:00 POC GLUCOSE 2022-07-10 Alvinalis [facility] 14:04:00 CBC WITH PLATELET AND 2022-07-10 [facility] DIFFERENTIAL 11:46:00 Christoph COMPREHENSIVE METABOLIC PANEL 2022-07-10 [facility] 11:46:00 Christopher ESTIMATED GFR 2022-07-10 [facility] Hospit al 11:46:00 Christopher POC GLUCOSE 2022-07-10 Alvinalis [facility]inny 05:15:00 POC GLUCOSE 2022-07-09 Vilmarashad [facility] ginny 23:43:00 POC GLUCOSE 2022-07-09 [facility] Hospit al 18:30:00 Christopher POC GLUCOSE 2022-07-09 [facility] Hospit al 14:10:00 Christopher CBC WITH PLATELET AND 2022-07-09 [facility] DIFFERENTIAL 11:32:00 Christopher COMPREHENSIVE METABOLIC PANEL 2022-07-09 [facility] 11:32:00 Christopher ESTIMATED GFR 2022-07-09 [facility] Hospit al 11:32:00 Christopher POC [facility]CO[facility]22[facility]07-09 [facility] 04[facility]:[address] CHEST W CONTRAST 2022-07-09 Charbel Raj [facility] 04:23:35 Christopher URINE CULTURE [facility]22[facility]07-08 [facility] 23:40:00 Sarah URINALYSIS SCREEN AND 2022-07-08 [facility] Liza [facility] MICROSCOPY, WITH REFLEX TO 22:46:00 Sarah CULTURE CONSULT TO OSTOMY CARE NURSE 2022-07-08 Raj Barger [facility] 22:44:26 Christopher XR CHEST 1 VW PORTABLE 2022-07-08 [facility] 22:32:48 Sarah POC GLUCOSE 2022-07-08 CharbelRaj [facility] 18:39:00 Christopher POC GLUCOSE 2022-07-08 [facility] Hospit al 14:10:00 Christopher CBC WITH PLATELET AND 2022-07-08 Dilshad [facility] DIFFERENTIAL 12:28:00 Akil COMPREHENSIVE METABOLIC PANEL 2022-07-08 [facility] 12:28:00 Christopher ESTIMATED GFR 2022-07-08 [facility] Hospit al 12:28:00 Christopher XR ABDOMEN 1 VW PORTABLE 2022-07-08 [facility] 04:36:39 Christopher POC GLUCOSE 2022-07-08 [facility] Hospit al 03:27:00 Christopher POC GLUCOSE 2022-07-08 [facility] Hospit al 00:30:00 Christopher POC GLUCOSE 2022-07-07 [facility] Hospit al 20:09:00 Christopher ANTI-NEUTROPHILIC CYTOPLASMIC 2022-07-07 [facility] 17:50:00 Noor Ur ANTINUCLEAR ANTIBODIES (DANNY) 2022-07-07 [facility] TITER AND 17:50:00 Noor Ur PATTERN, IMMUNOFLUORESCENCE C4 COMPLEMENT COMPONENT 2022-07-07 [facility] 17:50:00 Noor Ur HEPATITIS B CORE ANTIBODY IGM 2022-07-[address] [facility] 17:50:00 Noor Ur HEPATITIS B CORE ANTIBODY 2022-07-07 Emmanuel, [facility] TOTAL 17:50:00 Noor Ur HEPATITIS B SURFACE AB, 2022-07-07 Cholo, [facility] QUANTITATIVE 17:50:00 Noor Ur HEPATITIS B SURFACE ANTIGEN 2022-07-07 Emmanuel, [facility] 17:50:00 Noor Ur HEPATITIS C ANTIBODY 2022-07-07 Emmanuel, [facility] 17:50:00 Noor Ur CBC WITH PLATELET AND 2022-07-07 [facility] DIFFERENTIAL 17:50:00 Christoph COMPREHENSIVE METABOLIC PANEL 2022-07-07 [facility] 17:50:00 Christopher ESTIMATED GFR 2022-07-07 Charbel, [facility] Hospit al 17:50:00 Christopher RHEUMATOID FACTOR 2022-07-07 Cholo, [facility] spital 17:50:00 Noor Ur POC GLUCOSE 2022-07-07 Charbel, [facility] Hospit al 14:58:00 Christopher POC GLUCOSE 2022-07-07 Refugio, [facility] Hospit al 02:39:00 Christopher POC GLUCOSE 2022-07-07 Charbel, [facility] Hospit al 00:37:00 Christopher POC GLUCOSE 2022-07-06 Charbel, [facility] Hospit al 19:22:00 Christopher POC [facility]UCO[facility]07-06 [facility] 13:[facility]00 Akil BASIC METABOLIC PANEL 2022-07-06 [facility] 11:27:00 Akil CBC WITH PLATELET AND 2022-07-06 [facility] DIFFERENTIAL 11:27:00 Akil IONIZED CALCIUM 2022-07-06 [facility] 11:27:00 Akil ESTIMATED GFR 2022-07-06 [facility] 11:27:00 Akil POC GLUCOSE 2022-07-06 [facility] ginny 03:56:00 Akil URINE PROTEIN 2022-07-06 Cholo, Albin Osullivan [facility] ELECTROPHORESIS, 24 HOUR 01:00:00 Noor Ur POC GLUCOSE 2022-07-06 [facility] 00:[facility]00 Akil POC GLUCOSE 2022-07-05 [facility] 19:09:00 Akil KAPPA LAMBDA FREE LIGHT CHAIN 2022-07-05 [facility] WITH RATIO 18:46:00 Noor Ur CREATININE CLEARANCE, URINE, 2022-07-05 Cholo [facility] 24 HOUR 18:46:00 Noor Ur VITAMIN D 1,25 DIHYDROXY 2022-07-05 [facility] L[facility], SERUM 18:46:00 Noor Ur SERUM ELECTROPHORESIS 2022-07-05 [facility] 18:46:00 Noor Ur ESTIMATED GFR 2022-07-05 [facility] ital 18:46:00 Noor Ur IMMUNOFIXATION, SERUM 2022-07-05 EmmanuelDell [facility] 18:46:00 Noor Ur MISCELLANEOUS REFERRAL TEST 2022-07-05 Emmanuel, [facility] 18:46:00 Noor Ur POC GLUCOSE 2022-07-05 Dilshad [facility] ginny 14:31:00 Akil CONSULT TO WOUND AND 2022-07-05 [facility] 11:27:10 Akil BASIC METABOLIC PANEL 2022-07-05 [facility] 11:11:00 Akil MAGNESIUM LEVEL 2022-07-05 Emmanuel, [facility] Hosp ital 11:11:00 Noor Ur URIC ACID LEVEL 2022-07-05 Emmanuel, [facility] ital 11:11:00 Noor Ur PHOSPHORUS LEVEL 2022-07-05 Emmanuel, [facility] Hos pital 11:11:00 Noor Ur ESTIMATED GFR 2022-07-05 Dilshad [facility] ginny 11:11:00 Akil POC GLUCOSE 2022-07-05 Dilshad, [facility] 04:32:00 Akil POC GLUCOSE 2022-07-05 Dilshad, [facility] ginny 00:14:00 Akil POC GLUCOSE 2022-07-04 Dilshad, [facility] ginny 18:14:00 Akil POC GLUCOSE 2022-07-04 Dilshad, [facility] 14:16:00 Akil CBC WITH PLATELET AND 2022-07-04 [facility] DIFFERENTIAL 07:19:00 Akil BASIC METABOLIC PANEL 2022-07-04 Dilshad, [facility] 07:19:00 Akil MAGNESIUM LEVEL 2022-07-04 Emmanuel, Albin Os[facility] 07:19:00 Noor Ur URIC ACID LEVEL 2022-07-04 Emmanuel, [facility] 07:19:00 Noor Ur PHOSPHORUS LEVEL 2022-07-04 Emmanuel, Al[facility] 07:19:00 Noor Ur ESTIMATED GFR 2022-07-04 Dilshad, [facility] 07:19:00 Akil POC GLUCOSE 2022-07-04 Dilshad, [facility] 02:32:00 Akil POC GLUCOSE 2022-07-04 Dilshad, [facility] 00:27:00 Akil POC GLUCOSE 2022-07-03 Dilshad, [facility] 17:42:00 Akil POC GLUCOSE 2022-07-03 Dilshad, [facility] 14:09:00 Akil CBC WITH PLATELET AND 2022-07-03 Dilshad, [facility] DIFFERENTIAL 11:20:00 Akil BASIC METABOLIC PANEL 2022-07-03 Dilshad, [facility] 11:20:00 Akil CORTISOL LEVEL, AM 2022-07-03 Albin Emmanuel [facility] 11:20:00 Noor Ur MAGNESIUM LEVEL 2022-07-03 Cholo, Albinvioleta Osullivan [facility] 11:20:00 Noor Ur URIC ACID LEVEL 2022-07-03 Cholo, Albinvioleta Osullivan [facility] 11:20:00 Noor Ur PHOSPHORUS LEVEL 2022-07-03 Emmanuel, Albinvioleta Osullivan [facility] 11:20:00 Noor Ur ESTIMATED GFR 2022-07-03 Dilshad, [facility] 11:20:00 Akil POC GLUCOSE 2022-07-03 [facility] 03:41:00 Akil POC GLUCOSE 2022-07-03 Dewayne Yung [facility] 00:34:00 Akil SPUTUM CULTURE 2022-07-02 Dewayne Yung [facility] ginny 21:39:00 Akil GRAM STAIN 2022-07-02 Dew[facility] 21:39:00 Akil POC GLUCOSE 2022-07-02 Dewayne Yung [facility] 19:06:00 Akil URINE CULTURE 2022-07-02 Emmanuel, [facility] ital 17:44:00 Noor Ur OSMOLALITY, URINE 2022-07-02 Emmanuel, [facility] spital 17:44:00 Noor Ur POTASSIUM, URINE, RANDOM 2022-07-02 [facility], [facility] 17:44:00 Noor Ur PROTEIN, URINE, RANDOM 2022-07-02 [facility], [facility] 17:44:00 Noor Ur CHLORIDE LEVEL, URINE, RANDOM 2022-07-02 [facility], [facility] 17:44:00 Noor Ur CREATININE LEVEL, URINE, 2022-07-02 [facility], [facility] RANDOM 17:44:00 Noor Ur SODIUM LEVEL, URINE, RANDOM 2022-07-02 [facility], [facility] 17:44:00 Noor Ur URINALYSIS SCREEN AND 2022-07-02 [facility] MICROSCOPY, WITH REFLEX TO 17:44:00 Noor Ur CULTURE URINE EOSINOPHILS 2022-07-02 Emmanuel, [facility] Ho spital 17:44:00 Noor Ur INFLUENZA ANTIGEN TEST, 2022-07-02 [facility] REFLEX NEGATIVE TO RPP 15:31:00 Akil RESPIRATORY PATHOGEN PANEL 2022-07-02 [facility] WITH COVID-19 RT-PCR 15:31:00 Akil ADRENOCORTICOTROPIC HORMONE 2022-07-02 [facility], [facility] 14:41:00 Noor Ur AMYLASE LEVEL 2022-07-02 Emmanuel, Al[facility] 14:41:00 Noor Ur OSMOLALITY, SERUM 2022-07-02 [facility], [facility] Ho spital 14:41:00 Noor Ur PARATHYROID HORMONE 2022-07-02 [facility], [facility] 14:41:00 Noor Ur RENIN ACTIVITY 2022-07-02 [facility], [facility] Hosp ital 14:41:00 Noor Ur ALDOSTERONE, SERUM 2022-07-02 [facility], [facility] H ospital 14:41:00 Noor Ur THYROID STIMULATING HORMONE 2022-07-02 [facility], [facility] 14:41:00 Noor Ur POC GLUCOSE 2022-07-02 Dilshad, [facility] 13:47:00 Akil POC GLUCOSE 2022-07-02 Dilshad, [facility] ginny 11:07:00 Akil UREA NITROGEN, URINE, RANDOM 2022-07-02 [facility], [facility] 10:56:00 Akil SODIUM LEVEL, URINE, RANDOM 2022-07-02 [facility], [facility] 10:56:00 Akil CREATININE LEVEL, URINE, 2022-07-02 Dilshad, [facility] RANDOM 10:56:00 Akil IONIZED CALCIUM 2022-07-02 Dilshad, [facility] ginny 10:25:00 Akil CBC WITH PLATELET AND 2022-07-02 [facility] DIFFERENTIAL 10:25:00 Akil BASIC METABOLIC PANEL 2022-07-02 [facility] 10:25:00 Akil ESTIMATED GFR 2022-07-02 Dilshad, [facility] ginny 10:25:00 Akil POC GLUCOSE 2022-07-02 Dilshad, [facility] 05:59:00 Akil POC GLUCOSE 2022-07-02 Dilshad, [facility] 02:17:00 Akil POC GLUCOSE 2022-07-01 Dilshad, [facility] ginny 18:58:[address] CHEST WO CONTRAST 2022-07-01 [facility] 16:23:55 Akil POC GLUCOSE 2022-07-01 Dilshad, [facility] 14:25:00 Akil CBC WITH PLATELET AND 2022-07-01 Dilshad, [facility] DIFFERENTIAL 09:12:00 Akil BASIC METABOLIC PANEL 2022-07-01 Dilshad, [facility] 09:12:00 Akil ESTIMATED GFR 2022-07-01 Dilshad, [facility] 09:12:00 Akil POC GLUCOSE 2022-07-01 Dilshad, [facility] 03:16:00 Akil POC GLUCOSE 2022-06-30 Dilshad, [facility] 23:43:00 Akil FL MODIFIED BARIUM SWALLOW 2022-06-30 Dilshad, [facility] 20:54:46 Akil POC GLUCOSE 2022-06-30 Dilshad, [facility] 18:06:00 Akil POC GLUCOSE 2022-06-30 Dilshad, [facility] 14:16:00 Akil POC GLUCOSE 2022-06-30 Dilshad, [facility] 12:40:00 Akil CBC WITH PLATELET AND 2022-06-30 Dilshad, [facility] DIFFERENTIAL 10:36:00 Akil BASIC METABOLIC PANEL 2022-06-30 Dilshad, [facility] 10:36:00 Akil ESTIMATED GFR 2022-06-30 Dilshad, [facility] 10:36:00 Akil POC GLUCOSE 2022-06-30 Dilshad, [facility] 02:58:00 Akil POC GLUCOSE 2022-06-30 Dilshad, [facility] 00:15:00 Akil POC GLUCOSE 2022-06-29 Dilshad, [facility] 18:52:00 Akil POC GLUCOSE 2022-06-29 Dilshad, [facility] 14:04:00 Akil CBC WITH PLATELET AND 2022-06-29 Dilshad, [facility] DIFFERENTIAL 10:29:00 Akil BASIC METABOLIC PANEL 2022-06-29 Dilshad, [facility] 10:29:00 Akil RETICULOCYTE COUNT 2022-06-29 Dilshad, [facility] spital 10:29:00 Akil TOTAL IRON BINDING CAPACITY 2022-06-29 Dilshad, [facility] 10:29:00 Akil ESTIMATED GFR 2022-06-29 Dilshad, [facility] 10:29:00 Akil POC GLUCOSE 2022-06-29 DilshadDewayne justice [facility] 04:36:00 Akil PARATHYROID HORMONE 2022-06-29 Dilshad, [facility] ospital 00:57:00 Akil CBC WITH PLATELET AND 2022-06-29 [facility] 00:45:00 Akil BASIC METABOLIC PANEL 2022-06-29 Dilshad, [facility] 00:45:00 Akil SYPHILIS TREPONEMA SCREEN 2022-06-29 [facility]PR CONFIRMATION 00:45:00 Akil (REVERSE ALGORITHM) AMMONIA LEVEL 2022-06-29 Dilshad, [facility]inny 00:45:00 Akil PROCALCITONIN 2022-06-29 Dilshad, [facility] 00:45:00 Akil ESTIMATED GFR 2022-06-29 Dilshad, [facility] 00:45:00 Akil IONIZED CALCIUM 2022-06-29 Dilshad, [facility] 00:45:00 Akil XR CHEST 1 VW PORTABLE 2022-06-29 Dilshad, [facility] 00:02:54 Akil POC GLUCOSE 2022-06-28 Dilshad, [facility] 23:38:00 Akil POC GLUCOSE 2022-06-28 Dilshad, [facility] 18:03:00 Akil POC GLUCOSE 2022-06-28 DilshadDewayne justice [facility] 14:28:00 Akil POC GLUCOSE 2022-06-28 Dilshad, [facility] 11:48:00 Akil MRI BRAIN WO CONTRAST 2022-06-28 [facility] 10:03:00 POC GLUCOSE 2022-06-28 DilshadDewayne justice [facility] 07:09:00 Akil POC GLUCOSE 2022-06-28 Dilshad, [facility] 03:05:00 Akil POC GLUCOSE 2022-06-27 Dilshad, [facility] 23:06:00 Akil POC GLUCOSE 2022-06-27 Dilshad, Dewayne [facility] 18:49:00 Akil TTE COMPLETE, WO CONTRAST, W 2022-06-27 [facility] DOPPLER ([id number]) 16:56:00 POC GLUCOSE 2022-06-27 Dewayne Yung [facility] 14:34:00 Akil OSMOLALITY, SERUM 2022-06-27 [facility] Hosp ital 13:37:00 ETHYLENE GLYCOL LEVEL 2022-06-27 [facility] 13:37:00 METHANOL LEVEL 2022-06-27 [facility] Hospit al 13:37:00 ALCOHOL LEVEL, BLOOD 2022-06-27 [facility] ospital 13:37:00 URINE CULTURE 2022-06-27 Pierce Markham [facility] 12:53:00 SODIUM LEVEL, URINE, RANDOM 2022-06-27 [facility] 12:22:00 CREATININE LEVEL, URINE, 2022-06-27 [facility] RANDOM 12:22:00 OSMOLALITY, URINE 2022-06-27 [facility] ital 12:22:00 CHLORIDE LEVEL, URINE, RANDOM 2022-06-27 [facility] 12:22:00 URINE DRUGS OF ABUSE SCREEN 2022-06-27 [facility] 12:22:00 URINALYSIS SCREEN AND 2022-06-27 [facility] MICROSCOPY, WITH REFLEX TO 12:22:00 CULTURE [id number] TOTAL 2022-06-27 [facility] 12:21:00 HOMOCYSTINE, PLASMA 2022-06-27 [facility] 12:21:00 FOLATE LEVEL 2022-06-27 [facility] Ho spital 12:21:00 VITAMIN B12 LEVEL 2022-06-27 [facility] 12:21:00 T4, FREE 2022-06-27 [facility] spital 12:21:00 SEDIMENTATION RATE 2022-06-27 [facility] 12:21:00 C-REACTIVE PROTEIN 2022-06-27 [facility] 12:21:00 HIV 1/2 ANTIGEN/ANTIBODY, 2022-06-27 [facility] FOURTH GENERATION, WITH 12:21:00 REFLEXES SYPHILIS TREPONEMA SCREEN 2022-06-27 [facility] WITH RPR CONFIRMATION 12:21:00 (REVERSE ALGORITHM) CT ANGIOGRAM NECK W WO 2022-06-27 [facility] CONTRAST 12:16:00 CT ANGIOGRAM HEAD W WO 2022-06-27 [facility] CONTRAST 12:09:07 VENOUS BLOOD GAS 2022-06-27 Brett Reagan [facility] 11:49:00 COVID-19 QUALITATIVE RT-PCR 2022-06-27 Brett Reagan [facility] 11:45:00 LACTIC ACID LEVEL, SEPSIS - 2022-06-27 Brett Reagan [facility] NOW AND REPEAT 2X EVERY 3 11:45:00 HOURS CBC WITH PLATELET AND 2022-06-27 [facility] DIFFERENTIAL 11:45:00 PROTHROMBIN TIME WITH INR 2022-06-27 [facility] 11:45:00 BASIC METABOLIC PANEL 2022-06-27 [facility] 11:45:00 HEMOGLOBIN A1C 2022-06-27 [facility] 11:45:00 LIPID PANEL 2022-06-27 [facility] 11:45:00 MAGNESIUM LEVEL 2022-06-27 [facility] 11:45:00 PHOSPHORUS LEVEL 2022-06-27 [facility] 11:45:00 THYROID STIMULATING HORMONE 2022-06-27 [facility] 11:45:00 VITAMIN B12 LEVEL 2022-06-27 [facility] ital 11:45:00 FOLATE LEVEL 2022-06-27 [facility] 11:45:00 TOTAL IRON BINDING CAPACITY 2022-06-27 [facility] 11:45:00 FERRITIN LEVEL 2022-06-27 Mil[facility] Daniels [facility] 11:45:00 OSMOLALITY, SERUM 2022-06-27 TristanmaMilly mcgee [facility] 11:45:00 ESTIMATED GFR 2022-06-27 Mil[facility] Daniels [facility] 11:45:00 CT STROKE BRAIN WO CONTRAST 2022-06-27 Steve Rose [facility] 11:38:00 CT ABDOMEN PELVIS WO CONTRAST 2022-06-27 [facility] 08:09:47 BLOOD CULTURE, AEROBIC & 2022-06-27 [facility]NAEROBIC 07:13:00 LACTIC ACID LEVEL, SEPSIS - 2022-06-27 [facility] NOW AND REPEAT 2X EVERY 3 07:13:00 HOURS CBC WITH PLATELET AND 2022-06-27 [facility] DIFFERENTIAL 04:11:00 COMPREHENSIVE METABOLIC PANEL 2022-06-27 [facility] 04:11:00 LIPASE LEVEL 2022-06-27 [facility] Hosp ital 04:11:00 ESTIMATED GFR 2022-06-27 [facility]osp ital 04:11:00 [id number] 2022-03-24 DADOL [facility] 00:00:00 [facility] POC GLUCOSE 2021-10-28 [facility] 21:30:00 POC GLUCOSE 2021-10-28 Ullah, [facility] 17:29:00 POC GLUCOSE 2021-10-28 Ullah, [facility] 12:31:00 HC COMPLETE BLD COUNT W/AUTO 2021-10-28 Raj Worley [facility] DIFF 10:00:00 BASIC METABOLIC PANEL 2021-10-28 Brunilda [facility] 10:00:00 MAGNESIUM LEVEL 2021-10-28 Brunilda [facility] spital 10:00:00 ESTIMATED GFR 2021-10-28 Brunilda [facility] spital 10:00:00 POC GLUCOSE 2021-10-28 [facility], Raj Beckford Ho spital 01:54:00 POC GLUCOSE 2021-10-27 [facility], Raj Beckford [facility] spital 21:35:00 POC GLUCOSE 2021-10-27 Brunilda, Raj [facility] spital 17:34:00 POC GLUCOSE 2021-10-27 [facility], Raj Bertrand [facility] spital 12:31:00 HC COMPLETE BLD COUNT W/AUTO 2021-10-27 [facility], [facility] DIFF 09:16:00 BASIC METABOLIC PANEL 2021-10-27 [facility], [facility] 09:16:00 ESTIMATED GFR 2021-10-27 [facility], Raj Beckford [facility] spital 09:16:00 POC GLUCOSE 2021-10-27 [facility], Raj Beckford [facility] spital 01:04:00 POC GLUCOSE 2021-10-26 [facility], Raj Beckford [facility] spital 21:32:00 POC GLUCOSE 2021-10-26 [facility], Rja Beckford [facility] spital 16:40:00 POC GLUCOSE 2021-10-26 [facility], Raj Bertrand [facility] 13:21:00 HC COMPLETE BLD COUNT W/AUTO 2021-10-26 [facility] DIFF 08:13:00 COMPREHENSIVE METABOLIC PANEL 2021-10-26 [facility], [facility] 08:13:00 ESTIMATED GFR 2021-10-26 [facility], Raj Beckford [facility] spital 08:13:00 POC GLUCOSE 2021-10-26 [facility], Raj Beckford [facility] spital 01:16:00 POC GLUCOSE 2021-10-25 [facility], Raj Beckford [facility] spital 22:18:00 XR HAND 2 VW LEFT 2021-10-25 [facility] 17:04:58 XR FOREARM 2 VW LEFT 2021-10-25 BrunildaRaj [facility] 17:04:42 POC GLUCOSE 2021-10-25 BrunildaRaj morales Ho spital 16:34:00 US DUPLEX VENOUS UPPER 2021-10-25 BrunildaRaj [facility] EXTREMITY LEFT 15:43:40 POC GLUCOSE 2021-10-25 Raj Worley Ho spital 13:08:00 HC COMPLETE BLD COUNT W/AUTO 2021-10-25 [facility], [facility] DIFF 09:25:00 COMPREHENSIVE METABOLIC PANEL 2021-10-25 [facility], [facility] 09:25:00 MAGNESIUM LEVEL 2021-10-25 Diab, [facility] Hospit al 09:25:00 PHOSPHORUS LEVEL 2021-10-25 [facility], [facility] Hospi ginny 09:25:00 ESTIMATED GFR 2021-10-25 [facility], [facility] al 09:25:00 POC GLUCOSE 2021-10-25 Raj Worley Ho spital 03:58:00 POC GLUCOSE 2021-10-25 Raj Worley Ho spital 01:12:00 MRI CERVICAL SPINE WO 2021-10-24 [facility] CONTRAST 23:28:02 POC GLUCOSE 2021-10-24 Raj Worley Ho spital 22:21:00 POC GLUCOSE 2021-10-24 Raj Worley Ho spital 15:48:00 ECHOCARDIOGRAM 2021-10-24 [facility]yl [facility] TRANSESOPHAGEAL W DOPPLER 14:20:00 COLORFLOW POC GLUCOSE 2021-10-24 Raj Worley Ho spital 11:12:00 COVID-19 ANTI-SPIKE IGG 2021-10-24 Madi Amaro [facility] ANTIBODY TITER 09:07:00 Sony HC COMPLETE BLD COUNT W/AUTO 2021-10-24 [facility], [facility] DIFF 09:07:00 COMPREHENSIVE METABOLIC PANEL 2021-10-24 [facility], [facility] 09:07:00 MAGNESIUM LEVEL 2021-10-24 [facility] 09:07:00 PHOSPHORUS LEVEL 2021-10-24 [facility], [facility] 09:07:00 COVID-19 SEROLOGY PATIENT 2021-10-24 Madi Amaro [facility] SURVEILLANCE 09:07:00 Sony ESTIMATED GFR 2021-10-24 [facility], [facility] Hospit al 09:07:00 POC GLUCOSE 2021-10-24 Raj Worley Ho spital 01:10:00 POC GLUCOSE 2021-10-23 Raj Worley Ho spital 22:35:00 CT CERVICAL SPINE WO CONTRAST 2021-10-23 [facility] 21:48:50 URINE DRUGS OF ABUSE SCREEN 2021-10-23 [facility] URINALYSIS, AUTOMATED WITH 2021-10-23 [facility] 20:53:00 VITAMIN B1 LEVEL, WHOLE BLOOD 2021-10-23 Domenica Juárez [facility] 20:42:00 AMMONIA LEVEL 2021-10-23 [facility] IONIZED CALCIUM 2021-10-23 [facility]00 BASIC METABOLIC PANEL 2021-10-23 Raj Worley [facility] 20:42:00 BETA HYDROXYBUTYRATE 2021-10-23 Raj Worley [facility] 20:42:00 ESTIMATED GFR 2021-10-23 [facility] 20:42:00 MAGNESIUM LEVEL 2021-10-23 [facility] 20:42:00 PHOSPHORUS LEVEL 2021-10-23 [facility] 20:42:00 EEG AWAKE/ASLEEP LESS THAN 41 2021-10-23 [facility]00 POC GLUCOSE 2021-10-23 [facility] 16:54:00 TTE COMPLETE, WO CONTRAST, W 2021-10-23 [facility] DOPPLER ([id number]) 16:07:00 POC GLUCOSE 2021-10-23 [facility] Wor[facility] 13:35:00 ECG 12-LEAD 2021-10-23 [facility] 12:31:14 TROPONIN T 2021-10-23 [facility] 11:02:00 B NATRIURETIC PEPTIDE 2021-10-23 [facility] 11:02:00 HC COMPLETE BLD COUNT W/AUTO 2021-10-23 [facility] DIFF 11:02:00 PROTHROMBIN TIME WITH INR 2021-10-23 [facility] 11:02:00 COMPREHENSIVE METABOLIC PANEL 2021-10-23 [facility] 11:02:00 MAGNESIUM LEVEL 2021-10-23 [facility] 11:02:00 PHOSPHORUS LEVEL 2021-10-23 [facility] ginny 11:02:00 ESTIMATED GFR 2021-10-23 [facility] 11:02:00 MRI LUMBAR SPINE WO CONTRAST 2021-10-23 [facility] 08:10:25 MRI BRAIN WO CONTRAST 2021-10-23 [facility] 07:56:27 CT ANGIOGRAM HEAD W WO 2021-10-23 [facility] CONTRAST 03:52:33 CT ANGIOGRAM NECK W WO 2021-10-23 [facility] CONTRAST 03:51:54 LIPID PANEL 2021-10-23 [facility] 02:04:00 VITAMIN B12 LEVEL 2021-10-23 [facility] ital 02:04:00 RAPID HIV 1 & 2 2021-10-23 [facility] 02:04:00 SYPHILIS TREPONEMA SCREEN 2021-10-23 [facility] WITH RPR CONFIRMATION 02:04:00 (REVERSE ALGORITHM) THYROID STIMULATING HORMONE 2021-10-23 [facility] 02:04:00 T4, FREE 2021-10-23 [facility] 02:04:00 HEMOGLOBIN A1C 2021-10-23 [facility] 02:04:00 COVID-19 QUALITATIVE RT-PCR 2021-10-23 [facility] 01:50:00 TROPONIN T 2021-10-23 [facility] 01:50:00 CT HEAD WO CONTRAST 2021-10-22 [facility] 23:45:28 [place] ECG ED PRELIMINARY 2021-10-22 [facility] INTERPRETATION 23:38:24 XR CHEST 1 VW PORTABLE 2021-10-22 [facility] 23:05:48 [place] HC COMPLETE BLD COUNT W/AUTO 2021-10-22 [facility] DIFF 22:59:00 [place] COMPREHENSIVE METABOLIC PANEL 2021-10-22 [facility] 22:59:00 [place] TROPONIN T 2021-10-22 [facility] 22:59:00 B NATRIURETIC PEPTIDE 2021-10-22 BelkysmeeRaj Alessio [facility] 22:59:00 [place] ESTIMATED GFR 2021-10-22 BelkysRaj caban [facility] 22:59:00 [place] ECG 12-LEAD 2021-10-22 [facility] 22:11:41 COMPREHENSIVE METABOLIC PANEL 2021-06-05 Domenica Villagran [facility] 17:13:00 CBC WITH PLATELET AND 2021-06-05 Domenica Villagran [facility] DIFFERENTIAL 17:13:00 Cholecystectomy 2004-06-[address] [facility] 06:00:00 Plan of Care Planned Activity Planned Date Details Comments Source Future Scheduled 2023-04-08 Screening for [facility] 18:23:17 malignant neoplasm [facility] colon (procedure) [code = 384325569] Future Scheduled 2023-04-08 Screening for [facility] 18:23:17 malignant neoplasm [facility] colon (procedure) [code = 013269324] Future Scheduled 2023-04-08 Screening for [facility] 18:23:17 malignant neoplasm [facility] colon (procedure) [code = 148298619] Future Scheduled 2023-04-08 SHINGLES VACCINES (1 [facility] 18:23:17 of 2) [code = Hospital SHINGLES VACCINES (1 of 2)] Future Scheduled 2023-04-08 Pneumococcal [facility] 18:23:17 Vaccine: [facility] (0 to 5 Years) and At-Risk Patients (6 to 64 Years) (2 - PCV) [code = Pneumococcal Vaccine: Pediatrics (0 to 5 Years) and At-Risk Patients (6 to 64 Years) (2 - PCV)] Future Scheduled 2023-04-08 RSV VACCINES > 60 YR [facility] 18:23:17 (1 - 1-dose 60+ Hospital series) [code = RSV VACCINES > 60 YR (1 - 1-dose 60+ series)] Future Scheduled 2023-04-08 BREAST CANCER [facility] 18:23:17 SCREENING [code = Hospital BREAST CANCER SCREENING] Future Scheduled 2023-04-08 URINE MICROALBUMIN [facility] 18:23:17 [code = URINE Hospital MICROALBUMIN] Future Scheduled 2023-04-08 DIABETIC FOOT EXAM [facility] 18:23:17 [code = DIABETIC Hospital FOOT EXAM] Future Scheduled 2023-04-08 DIABETES: RETINAL [facility] 18:23:17 EYE EXAM [code = Hospital DIABETES: RETINAL EYE EXAM] Future Scheduled 2023-04-08 COVID-19 VACCINE (4 [facility] 18:23:17 - season) Hospital [code = COVID-19 VACCINE (4 - season)] Future Scheduled 2023-04-08 INFLUENZA VACCINE [facility] 18:23:17 (#1) [code = Hospital INFLUENZA VACCINE (#1)] Future Scheduled 2023-04-08 Screening for Postponed from [facility] 18:23:17 malignant neoplasm 01/26/1981 (Not Hospit al of cervix Indicated) (procedure) [code = 996935998] Future Scheduled 2023-04-08 Screening for [facility] 18:23:17 malignant neoplasm [facility] colon (procedure) [code = 439647705] Future Scheduled 2023-04-08 Screening for [facility] 18:23:17 malignant neoplasm [facility] colon (procedure) [code = 947407456] Future Scheduled 2023-03-03 Screening for [facility] 14:32:29 malignant neoplasm [facility] colon (procedure) [code = 406340372] Future Scheduled 2023-03-03 Screening for [facility] 14:32:29 malignant neoplasm [facility] colon (procedure) [code = 287584542] Future Scheduled 2023-03-03 Screening for [facility] 14:32:29 malignant neoplasm [facility] colon (procedure) [code = 925142335] Future Scheduled 2023-03-03 SHINGLES VACCINES (1 [facility] 14:32:29 of 2) [code = Hospital SHINGLES VACCINES (1 of 2)] Future Scheduled 2023-03-03 Pneumococcal [facility] 14:32:29 Vaccine: [facility] (0 to 5 Years) and At-Risk Patients (6 to 64 Years) (2 - PCV) [code = Pneumococcal Vaccine: Pediatrics (0 to 5 Years) and At-Risk Patients (6 to 64 Years) (2 - PCV)] Future Scheduled 2023-03-03 BREAST CANCER [facility] 14:32:29 SCREENING [code = Hospital BREAST CANCER SCREENING] Future Scheduled 2023-03-03 URINE MICROALBUMIN [facility] 14:32:29 [code = URINE Hospital MICROALBUMIN] Future Scheduled 2023-03-03 COVID-19 VACCINE (4 [facility] 14:32:29 - Pfizer series) Hospital [code = COVID-19 VACCINE (4 - Pfizer series)] Future Scheduled 2023-03-03 DIABETIC FOOT EXAM [facility] 14:32:29 [code = DIABETIC Hospital FOOT EXAM] Future Scheduled 2023-03-03 DIABETES: RETINAL [facility] 14:32:29 EYE EXAM [code = Hospital DIABETES: RETINAL EYE EXAM] Future Scheduled 2023-03-03 INFLUENZA VACCINE [facility] 14:32:29 (#1) [code = Hospital INFLUENZA VACCINE (#1)] Future Scheduled 2023-03-03 Screening for Postponed from [facility] 14:32:29 malignant neoplasm 01/26/1981 (Not Hospit al of cervix Indicated) (procedure) [code = 334349857] Future Scheduled 2023-03-03 Screening for [facility] 14:32:29 malignant neoplasm [facility] of colon (procedure) [code = 477938236] Future Scheduled 2023-03-03 Screening for [facility] 14:32:29 malignant neoplasm [facility] of colon (procedure) [code = 396385396] Future Scheduled 2022-03-12 HEPATITIS B VACCINES [facility] 20:46:59 (1 of 3 - 3-dose Hospital series) [code = HEPATITIS B VACCINES (1 of 3 - 3-dose series)] Future Scheduled 2022-03-12 Hepatitis C [facility] 20:46:59 screening Hospital (procedure) [code = 694211198] Future Scheduled 2022-03-12 SHINGLES VACCINES (1 [facility] 20:46:59 of 2) [code = Hospital SHINGLES VACCINES (1 of 2)] Future Scheduled 2022-03-12 Pneumococcal [facility] 20:46:59 Vaccine: [facility] (0 to 5 Years) and At-Risk Patients (6 to 64 Years) (2 - PCV) [code = Pneumococcal Vaccine: Pediatrics (0 to 5 Years) and At-Risk Patients (6 to 64 Years) (2 - PCV)] Future Scheduled 2022-03-12 BREAST CANCER [facility] 20:46:59 SCREENING [code = Hospital BREAST CANCER SCREENING] Future Scheduled 2022-03-12 URINE MICROALBUMIN [facility] 20:46:59 [code = URINE Hospital MICROALBUMIN] Future Scheduled 2022-03-12 COVID-19 VACCINE (4 [facility] 20:46:59 - Booster for Pfizer Hospita l series) [code = COVID-19 VACCINE (4 - Booster for Pfizer series)] Future Scheduled 2022-03-12 DIABETIC FOOT EXAM [facility] 20:46:59 [code = DIABETIC Hospital FOOT EXAM] Future Scheduled 2022-03-12 INFLUENZA VACCINE [facility] 20:46:59 [code = INFLUENZA Hospital VACCINE] Future Scheduled 2022-03-12 DIABETES: RETINAL [facility] 20:46:59 EYE EXAM [code = Hospital DIABETES: RETINAL EYE EXAM] Future Scheduled 2022-03-12 Screening for Postponed from [facility] 20:46:59 malignant neoplasm 01/26/1981 (Not Hospit al of cervix Indicated) (procedure) [code = 096849143] Future Scheduled 2022-03-12 COLONOSCOPY [facility] 20:46:59 SCREENING [code = Hospital COLONOSCOPY SCREENING] Encounters Start End Encounter Admission Attending Care Care Encounter Source Date/Time Date/Time Type Type Clinicians Facility Department ID 2022-08-06 Outpatient 3 [id number] [facility] CVA [id number] [facility] 10:07:42 [id number] [facility] 2022-07-27 Outpatient 3 [id number] [facility] REF [id number] [facility] 14:44:31 [id number] [facility] 2022-07-24 Outpatient 3 [id number] [facility] REF [id number] [facility] 15:52:15 [id number] [facility] [place] 2022-03-25 Outpatient 3 MANUEL [facility] CVA [id number] [facility] 12:56:05 LUIS [id number] [facility] [place] 2022-03-23 Outpatient 3 [id number] [facility] REF [id number] [facility] 15:00:29 [facility] 2021-10-27 Outpatient 3 [id number] [facility] REF [id number] [facility] 14:02:07 [facility] [place] 2023-04-03 2023-04-03 Refill Villagran, 1.2.840.1 [id number] 5736 [facility] 00:00:00 00:00:00 Domenica Jason 39011.1.[address] 3.430.2.7 Hospit a .3.569486 l .8 2023-04-02 2023-04-02 Refill Villagran, 1.2.840.1 [id number] 8015 [facility]i 00:00:00 00:00:00 Domenica Jason [address]646.1.[address] 3.430.2.7 Hospit a .3.040288 l .8 2023-03-23 2023-03-23 Orders Villagran, 1.2.840.1 [id number] 6307 [facility]i 00:00:00 00:00:00 Only Domenica Jason 33605.1.[address] 3.430.2.7 Hospit a .3.373735 l .8 2023-03-23 2023-03-23 Refill Villagran, 1.2.840.1 [id number] 2311 Methodi 00:00:00 00:00:00 Domenica Jason 98651.1.[address] 3.430.2.7 Hospit a .3.349223 l .8 2023-03-23 2023-03-23 Refill Villagran, 1.2.840.1 [id number] 8311 Methodi 00:00:00 00:00:00 Domenica Jason 01263.1.[address] 3.430.2.7 Hospit a .3.884491 l .8 2023-03-23 2023-03-23 Refill [place], 1.2.840.1 [id number] 1692 Methodi 00:00:00 00:00:[address] [place] 3.430.2.7 Hospit a .3.411398 l .8 2023-03-23 2023-03-23 Telephone Villagran, 1.2.840.1 [id number] 2100 108179 Methodi 00:00:00 00:00:00 [address]ren [address] 3.430.2.7 Hospit a .3.582022 l .8 2023-03-23 2023-03-23 Refill Villagran, 1.2.840.1 [id number] 8958 Methodi 00:00:00 00:00:00 Domenica Jason [address]894.1.[address] 3.430.2.7 Hospit a .3.514992 l .8 2023-03-15 2023-03-15 Refill Villagran, 1.2.840.1 [id number] 2476 Methodi 00:00:00 00:00:00 Domenica Jason [address]89.1.[address] 3.430.2.7 Hospit a .3.140891 l .8 2023-03-15 2023-03-15 Refill [place], 1.2.840.1 [id number] 4041 Methodi 00:00:00 00:00:[address] [place] 3.430.2.7 Hospit a .3.559203 l .8 2023-03-08 2023-03-08 Refill Villagran, 1.2.840.1 [id number] 9677 Methodi 00:00:00 00:00:00 Domenica Jason 01912.1.[address] 3.430.2.7 Hospit a .3.880381 l .8 2023-03-06 2023-03-06 Refill [place], 1.2.840.1 [id number] 8903 Methodi 00:00:00 00:00:[address] [place] 3.430.2.7 Hospit a .3.823034 l .8 2023-03-06 2023-03-06 Refill Villagran, 1.2.840.1 [id number] 8519 Methodi 00:00:00 00:00:00 Domenica Jason 89971.1.[address] 3.430.2.7 Hospit a .3.934144 l .8 2023-03-06 2023-03-06 Refill [place], 1.2.840.1 [id number] 4932 Methodi 00:00:00 00:00:[address] [place] 3.430.2.7 Hospit a .3.351664 l .8 2023-03-06 2023-03-06 Refill Villagran, 1.2.840.1 [id number] 9923 Methodi 00:00:00 00:00:00 Domenica Jason [address]991.1.[address] 3.430.2.7 Hospit a .3.317370 l .8 2023-03-03 2023-03-03 Orders Villagran, 1.2.840.1 [id number] 3056 Methodi 00:00:00 00:00:00 Only Domenica Jason 98472.1.[address] 3.430.2.7 Hospit a .3.219323 l .8 2023-03-03 2023-03-03 Refill Villagran, 1.2.840.1 [id number] 7941 Methodi 00:00:00 00:00:00 Domenica Jason 60583.1.[address] 3.430.2.7 Hospit a .3.730881 l .8 2023-03-03 2023-03-03 Orders Villagran, 1.2.840.1 [id number] 7407 Methodi 00:00:00 00:00:00 Only Domenica Jason 33946.1.[address] 3.430.2.7 Hospit a .3.214211 l .8 2023-03-03 2023-03-03 Refill Villagran, 1.2.840.1 [id number] 099446 5942 Methodi 00:00:00 00:00:00 Domenica Jason 66069.1.[address] 3.430.2.7 Hospit a .3.791081 l .8 2023-02-16 2023-02-16 Telephone Ezekiel, 1.2.840.1 [id number] 2100 159186 Methodi 00:00:00 00:00:[address] 3.430.2.7 Hospit a .3.777291 l .8 2023-02-16 2023-02-16 Telephone Ezekiel, 1.2.840.1 [id number] 2100 370775 Methodi 00:00:00 00:00:00 Jose G [address].1.[address] 3.430.2.7 Hospit a .3.682165 l .8 2023-02-14 2023-02-14 Refill [place], 1.2.840.1 [id number] 879720 1479 Methodi 00:00:00 00:00:[address] [place] 3.430.2.7 Hospit a .3.935681 l .8 2023-02-14 2023-02-14 Refill Villagran, 1.2.840.1 [id number] 673411 4859 Methodi 00:00:00 00:00:00 Domenica Jason [address]505.1.[address] 3.430.2.7 Hospit a .3.275832 l .8 2023-02-14 2023-02-14 Refill Villagran, 1.2.840.1 [id number] 3910 Methodi 00:00:00 00:00:00 Domenica Jason 26688.1.[address] 3.430.2.7 Hospit a .3.647507 l .8 2023-02-14 2023-02-14 Refill [place], 1.2.840.1 [id number] 0989 Methodi 00:00:00 00:00:[address] [place] 3.430.2.7 Hospit a .3.420242 l .8 2023-02-14 2023-02-14 Refill Villagran, 1.2.840.1 [id number] 5889 Methodi 00:00:00 00:00:00 Domenica Jason 70414.1.[address] 3.430.2.7 Hospit a .3.932970 l .8 2023-02-14 2023-02-14 Refill Villagran, 1.2.840.1 [id number] 2721 Methodi 00:00:00 00:00:00 Domenica Jason 34877.1.[address] 3.430.2.7 Hospit a .3.505133 l .8 2023-02-02 2023-02-02 Refill Villagran, 1.2.840.1 [id number] 6838 Methodi 00:00:00 00:00:[address] 3.430.2.7 Hospit a .3.776189 l .8 2023-02-02 2023-02-02 Refill Villagran, 1.2.840.1 [id number] [id number] 5302 Methodi 00:00:00 00:00:[address] 3.430.2.7 Hospit a .3.414739 l .8 2023-02-01 2023-02-01 Refill Villagran, 1.2.840.1 [id number] 9374 Methodi 00:00:00 00:00:[address] 3.430.2.7 Hospit a .3.236976 l .8 2023-02-01 2023-02-01 Refill Villagran, 1.2.840.1 [id number] 807954 6286 Methodi 00:00:00 00:00:00 Domenica Jason [address]9799.1.[address] 3.430.2.7 Hospit a .3.167448 l .8 2023-01-24 2023-01-24 Orders Villagran, 1.2.840.1 [id number] 4673 Methodi 00:00:00 00:00:00 Only Domenica Jason 01807.1.[address] 3.430.2.7 Hospit a .3.858437 l .8 2023-01-24 2023-01-24 Orders Villagran, 1.2.840.1 [id number] 9461 Methodi 00:00:00 00:00:00 Only Domenica Harper50.1.[address] 3.430.2.7 Hospit a .3.683401 l .8 2023-01-22 2023-01-22 Refill Villagran, 1.2.840.1 [id number] 2519 Methodi 00:00:00 00:00:00 Domenica Jason 60573.1.[address] 3.430.2.7 Hospit a .3.635111 l .8 2023-01-22 2023-01-22 Refill Villagran, 1.2.840.1 [id number] 845473 6942 Methodi 00:00:00 00:00:00 Domenica Jason [address]42.1.[address] 3.430.2.7 Hospit a .3.670748 l .8 2023-01-14 2023-01-14 Telephone Flood, 1.2.840.1 [id number] 2100 312913 Methodi 00:00:00 00:00:[address] 3.430.2.7 Hospit a .3.496696 l .8 2023-01-14 2023-01-14 Telephone Flood, 1.2.840.1 [id number] 2099 526088 Methodi 00:00:00 00:00:[address] 3.430.2.7 Hospit a .3.460247 l .8 2023-01-11 2023-01-11 Refill Villagran, 1.2.840.1 [id number] 749504 2239 Methodi 00:00:00 00:00:00 Domenica Jason 30485.1.[address] 3.430.2.7 Hospit a .3.889012 l .8 2023-01-11 2023-01-11 Refill Villagran, 1.2.840.1 [id number] 656212 9709 Methodi 00:00:00 00:00:00 Domenica Jason 19584.1.[address] 3.430.2.7 Hospit a .3.134671 l .8 2023-01-06 2023-01-06 Refill Villagran, 1.2.840.1 [id number] 899801 3741 Methodi 00:00:00 00:00:00 Domen[address] Eren [address] 3.430.2.7 Hospit a .3.564491 l .8 2023-01-06 2023-01-06 Refill [place], 1.2.840.1 [id number] 2821 Methodi 00:00:00 00:00:[address] [place] 3.430.2.7 Hospit a .3.690959 l .8 2023-01-06 2023-01-06 Refill Villagran, 1.2.840.1 [id number] 6221 Methodi 00:00:00 00:00:00 Domenica Jason 50925.1.[address] 3.430.2.7 Hospit a .3.544408 l .8 2023-01-06 2023-01-06 Refill [place], 1.2.840.1 [id number] 532109 0256 Methodi 00:00:00 00:00:[address] [place] 3.430.2.7 Hospit a .3.294043 l .8 2022-12-15 2022-12-15 Refill Villagran, 1.2.840.1 [id number] 2472 Methodi 00:00:00 00:00:00 Domenica Jason [address]0123.1.[address] 3.430.2.7 Hospit a .3.481419 l .8 2022-12-15 2022-12-15 Refill [place], 1.2.840.1 [id number] 604144 5132 Methodi 00:00:00 00:00:[address] [place] 3.430.2.7 Hospit a .3.676611 l .8 2022-12-15 2022-12-15 Refill Villagran, 1.2.840.1 [id number] 586812 2557 Methodi 00:00:00 00:00:00 Domen[address] Eren [address]383.1.[address] 3.430.2.7 Hospit a .3.773192 l .8 2022-12-15 2022-12-15 Refill [place], 1.2.840.1 [id number] 3240 Methodi 00:00:00 00:00:[address] [place] 3.430.2.7 Hospit a .3.283124 l .8 2022-11-22 2022-11-22 Refill [place], 1.2.840.1 [id number] [id number] 5025 Methodi 00:00:00 00:00:[address] [place] 3.430.2.7 Hospit a .3.703769 l .8 2022-11-22 2022-11-22 Refill [place], 1.2.840.1 [id number] 2328 Methodi 00:00:00 00:00:[address] [place] 3.430.2.7 Hospit a .3.437837 l .8 2022-11-18 2022-11-18 Orders Villagran, 1.2.840.1 [id number] 6448 Methodi 00:00:00 00:00:00 Only Domenica Jason 92938.1.[address] 3.430.2.7 Hospit a .3.057677 l .8 2022-11-18 2022-11-18 Orders Villagran, 1.2.840.1 [id number] 8130 Methodi 00:00:00 00:00:00 Only Domenica Jason 48278.1.[address] 3.430.2.7 Hospit a .3.897266 l .8 2022-11-17 2022-11-17 Refill Villagran, 1.2.840.1 [id number] 929512 3229 Methodi 00:00:00 00:00:00 Domenica Jason 99774.1.[address] 3.430.2.7 Hospit a .3.623485 l .8 2022-11-17 2022-11-17 Refill Villagran, 1.2.840.1 [id number] 379392 1602 Methodi 00:00:00 00:00:00 Domenica Jason 44573.1.[address] 3.430.2.7 Hospit a .3.598042 l .8 2022-11-17 2022-11-17 Refill Villagran, 1.2.840.1 [id number] 732214 0483 Methodi 00:00:00 00:00:00 Domenica Jason [address]76.1.[address] 3.430.2.7 Hospit a .3.140448 l .8 2022-11-17 2022-11-17 Refill Villagran, 1.2.840.1 [id number] 957548 3223 Methodi 00:00:00 00:00:00 Domenica Jason 47982.1.[address] 3.430.2.7 Hospit a .3.851296 l .8 2022-11-17 2022-11-17 Refill Villagran, 1.2.840.1 [id number] 3738 Methodi 00:00:00 00:00:00 Domenica Jason [address]375.1.[address] 3.430.2.7 Hospit a .3.875009 l .8 2022-11-17 2022-11-17 Refill Villagran, 1.2.840.1 [id number] 040822 4054 Methodi 00:00:00 00:00:00 Domenica Jason 26710.1.[address] 3.430.2.7 Hospit a .3.483426 l .8 2022-11-17 2022-11-17 Refill Villagran, 1.2.840.1 [id number] 533296 4725 Methodi 00:00:00 00:00:00 Domenica Jason [address]342.1.[address] 3.430.2.7 Hospit a .3.374008 l .8 2022-11-17 2022-11-17 Refill [facility]agran, 1.2.840.1 [id number] 047786 0820 Methodi 00:00:00 00:00:00 Domenica Jason 97329.1.[address] 3.430.2.7 Hospit a .3.700225 l .8 2022-11-17 2022-11-17 Refill [facility]ag[facility], 1.2.840.1 [id number] [id number] 2135 Methodi 00:00:00 00:00:00 Domenica Jason [address]2497.1.[address] 3.430.2.7 Hospit a .3.836920 l .8 2022-11-17 2022-11-17 Refill [facility]ag[facility], 1.2.840.1 [id number] 501159 1705 Methodi 00:00:00 00:00:00 Domenica Jason 75158.1.[address] 3.430.2.7 Hospit a .3.423147 l .8 2022-11-17 2022-11-17 Refill [facility]ag[facility], 1.2.840.1 [id number] 774582 9412 Methodi 00:00:00 00:00:00 Domenica Jason 80699.1.[address] 3.430.2.7 Hospit a .3.533686 l .8 2022-11-17 2022-11-17 Refill Villagran, 1.2.840.1 [id number] Methodi 00:00:00 00:00:00 Domenica Jason [address]87.1.[address] 3.430.2.7 Hospit a .3.981974 l .8 2022-11-17 2022-11-17 Refill Villagran, 1.2.840.1 [id number] 1178 Methodi 00:00:00 00:00:00 Domenica Jason [address]798.1.[address] 3.430.2.7 Hospit a .3.360626 l .8 2022-11-17 2022-11-17 Refill Villagran, 1.2.840.1 [id number] 7256 Methodi 00:00:00 00:00:00 Domenica Jason [address]51.1.[address] 3.430.2.7 Hospit a .3.887216 l .8 2022-11-12 2022-11-12 Telephone [place], 1.2.840.1 [id number] 2099 837050 Methodi 00:00:00 00:00:[address] Mirta 3.430.2.7 Hospit a .3.434225 l .8 2022-11-12 2022-11-12 Telephone [place], 1.2.840.1 [id number] 2099 [id number] Methodi 00:00:00 00:00:[address] Mirta 3.430.2.7 Hospit a .3.698655 l .8 2022-10-27 2022-10-27 Telemedici [place], 1.2.840.1 [id number] 467 [id number] Methodi 11:00:00 11:23:32 ne Hortencia 31299.1.[address] Mirta 3.430.2.7 Hospit a .3.922622 l .8 2022-10-27 2022-10-27 Telemedici [place], 1.2.840.1 [id number] 644 [id number] Methodi 11:00:00 11:23:32 ne Hortencia 85803.1.[address] Mirta 3.430.2.7 Hospit a .3.305028 l .8 2022-10-26 2022-10-26 Telephone Villagran, 1.2.840.1 [id number] 2099 088472 Methodi 00:00:00 00:00:00 Domenica Jason [address]60.1.[address] 3.430.2.7 Hospit a .3.992082 l .8 2022-10-26 2022-10-26 Telephone Villagran, 1.2.840.1 [id number] 2099 [id number] Methodi 00:00:00 00:00:00 Domenica Jason 89906.1.[address] 3.430.2.7 Hospit a .3.953008 l .8 2022-09-22 2022-09-22 Telephone [place], 1.2.840.1 [id number] 2099 [id number] Methodi 00:00:00 00:00:[address] 3.430.2.7 Hospit a .3.364132 l .8 2022-09-22 2022-09-22 Telephone [place], 1.2.840.1 [id number] 2099 993412 Methodi 00:00:00 00:00:[address] 3.430.2.7 Hospit a .3.966517 l .8 2022-08-27 2022-08-27 Telemedici Villagran, 1.2.840.1 [id number] 083 [id number] Methodi 09:15:00 10:36:37 ne Domenica Jason 80757.1.[address] 3.430.2.7 Hospit a .3.848518 l .8 2022-08-27 2022-08-27 Telemedici Villagran, 1.2.840.1 [id number] 279 [id number] Methodi 09:15:00 10:36:37 ne Domenica Jason 12365.1.[address] 3.430.2.7 Hospit a .3.312734 l .8 2022-08-13 2022-08-13 Refill Villagran, 1.2.840.1 [id number] 392681 8450 Methodi 00:00:00 00:00:00 Domenica Jason [address]125.1.[address] 3.430.2.7 Hospit a .3.741553 l .8 2022-08-13 2022-08-13 Refill Villagran, 1.2.840.1 [id number] 6655 Methodi 00:00:00 00:00:00 Domenica Jason 25625.1.[address] 3.430.2.7 Hospit a .3.733279 l .8 2022-07-31 2022-08-05 Emergency Tiana Cohen 1.2.840.1 10 [id number] Methodi 10:34:00 15:55:00 JuvenciojadeRadha 10166.1.1 638 [facility] 3.430.2.7 Ho deana Egan, Nguyen Shiv .3.477140 l .8 2022-07-31 2022-08-05 Emergency Tiana Cohen 1.2.840.1 10 [id number] Methodi 10:34:00 15:55:00 Artem Radha Cervanteshir 50384.1.1 638 [facility] 3.430.2.7 Ho spiyulia Julisa, Nguyen Shiv .3.681837 l .8 2022-06-26 2022-07-17 [facility] Brett Reagan 1.2.840.1 [id number] 1062 [id number] Methodi 20:30:00 16:36:00 Encounter Milly Daniels 90277.1.1 [address] Yung 3.430.2.7 [facility] .3.247587 Jeannie Cam .8 2022-06-26 2022-07-17 [facility] Brett Reagan 1.2.840.1 06606 1062 [id number] Methodi 20:30:00 16:36:00 Encounter Milly Daniels 60170.1.1 [address] DilshadDewayne justice 3.430.2.7 [facility] .[facility].210940 Jeannie Cam .8 2022-03-27 2022-04-15 Inpatient 3 [place] [facility] [id number] 02 [facility] 18:14:00 14:22:00 LUIS [address] [facility] [place] 2022-03-20 2022-03-27 Inpatient EM Prudencio, HCAPM INTE.02 [id number] [facility] 15:06:00 18:04:00 Oladipo 89 [facility] [place], operated [facility] 2022-03-21 2022-03-21 Outpatient Prudencio ZORACL LABO [id number] [facility] 07:23:00 07:23:00 Oladipo 40 [facility] 2022-01-21 2022-01-21 Orders Tyshawn, 1.2.840.1 [id number] 6487 Methodi 00:00:00 00:00:00 Only Domenica Jason 34603.1.[address] 3.430.2.7 Hospit a .3.411721 l .8 2022-01-20 2022-01-20 Kenyetta Flood 1.2.840.1 [id number] 2100 [id number] Methodi 00:00:00 00:00:00 Claire Rodgers 17741.1.[address] 3.430.2.7 Hospit a .3.831051 l .8 2022-01-08 2022-01-08 Orders Tyshawn, 1.2.840.1 [id number] 9286 Methodi 00:00:00 00:00:00 Only Domenica Jason 30614.1.[address] 3.430.2.7 Hospit a .3.507297 l .8 2022-01-07 2022-01-07 Telephone Villagran, 1.2.840.1 [id number] 2100 886488 Methodi 00:00:00 00:00:00 Domenica Jason 00579.1.[address] 3.430.2.7 Hospit a .3.061395 l .8 2022-01-05 2022-01-05 Orders Villagran, 1.2.840.1 [id number] [id number] 2066 Methodi 00:00:00 00:00:00 Only Domenica Jason 84863.1.[address] 3.430.2.7 Hospit a .3.078226 l .8 2022-01-05 2022-01-05 Orders Villagran, 1.2.840.1 [id number] [id number] 9909 Methodi 00:00:00 00:00:00 Only Domenica Jason 34799.1.[address] 3.430.2.7 Hospit a .3.530630 l .8 2022-01-02 2022-01-02 Office Villagran, 1.2.840.1 [id number] 9673 Methodi 14:45:00 16:07:12 Visit Domenica Jason 90249.1.[address] 3.430.2.7 Hospit a .3.756682 l .8 2022-01-02 2022-01-02 Travel 1.2.840.1 1.2.253.648 5798 622408 Methodi 00:00:00 00:00:[address] 3.430.2.7 0.2.7.3.698 Ho spita .3.965615 084.8 l .8 2021-11-27 2021-11-27 Orders Villagran, 1.2.840.1 [id number] [id number] 3698 Methodi 00:00:00 00:00:00 Only Domenica Jason 87634.1.[address] 3.430.2.7 Hospit a .3.746621 l .8 2021-11-27 2021-11-27 Telephone Remigio, 1.2.840.1 [id number] 2099 691510 Methodi 00:00:00 00:00:00 Claire Rodgers 06926.1.[address] 3.430.2.7 Hospit a .3.234874 l .8 2021-11-21 2021-11-21 Office Villagran, 1.2.840.1 [id number] 1601 Methodi 08:30:00 09:24:37 Visit Domenica Jason 23625.1.[address] 3.430.2.7 Hospit a .3.914788 l .8 2021-11-21 2021-11-21 Travel 1.2.840.1 1.2.750.941 2173 430953 Methodi 00:00:00 00:00:[address] 3.430.2.7 0.2.7.3.698 Ho spita .3.945920 084.8 l .8 2021-10-28 2021-11-09 Inpatient 3 [place] CVA [id number] 02 [facility] 19:51:00 11:52:00 LUIS [facility] [place] 2021-11-07 2021-11-07 Travel 1.2.840.1 1.2.980.890 4633 143738 Methodi 00:00:00 00:00:[address] 3.430.2.7 0.2.7.3.698 Ho spita .3.083260 084.8 l .8 2021-10-22 2021-10-28 Hospital Magnus Parson 1.2.840.1 1041 41481 [id number] Methodi 16:52:00 18:46:00 Encounter Giovanna Rahman 80465.1.[address] Raj Wor[facility] Gunjan Alexander .3.785288 l .8 2021-10-24 2021-10-24 Orders Sonbol, 1.2.840.1 [id number] 0795 Methodi 00:00:00 00:00:00 Only Yao 67118.1.[address] Lauramed 3.430.2.7 Hospit a .3.038076 l .8 2021-10-24 2021-10-24 Orders Bryan, 1.2.840.1 [id number] Methodi 00:00:00 00:00:00 Only Justina 00646.1.[address] Jeferson 3.430.2.7 Hospit a Fouzia .3.576899 l .8 2021-10-23 2021-10-23 Orders Ralph, 1.2.840.1 [id number] Methodi 00:00:00 00:00:00 Only Paula 32859.1.[address] 3.430.2.7 Hospit a .3.113041 l .8 2021-10-22 2021-10-22 Travel 1.2.840.1 1.2.789.164 4216 573470 Methodi 00:00:00 00:00:[address] 3.430.2.7 0.2.7.3.698 Ho spita .3.418724 084.8 l .8 2021-10-20 2021-10-20 Travel 1.2.840.1 1.2.672.880 9758 650569 Methodi 00:00:00 00:00:[address] 3.430.2.7 0.2.7.3.698 Ho spita .3.173837 084.8 l .8 2021-10-20 2021-10-20 Telephone Villagran, 1.2.840.1 [id number] Methodi 00:00:00 00:00:00 Domenica Jason 89826.1.[address] 3.430.2.7 Hospit a .3.670787 l .8 2021-06-17 2021-06-17 Office Villagran, 1.2.840.1 [id number] Methodi 09:45:00 10:52:24 Visit Domenica Jason 31695.1.[address] 3.430.2.7 Hospit a .3.922354 l .8 2021-06-16 2021-06-16 Travel 1.2.840.1 1.2.847.836 4855 257575 Methodi 00:00:00 00:00:[address] 3.430.2.7 0.2.7.3.698 Ho spita .3.242159 084.8 l .8 2021-06-10 2021-06-10 Travel 1.2.840.1 1.2.151.083 8238 778775 Methodi 00:00:00 00:00:[address] 3.430.2.7 0.2.7.3.698 Ho spita .3.328174 084.8 l .8 2021-06-05 2021-06-05 Telephone Villagran, 1.2.840.1 [id number] 2099 697473 Methodi 00:00:00 00:00:00 Domen[address] Jason 62519.1.[address] 3.430.2.7 Hospit a .3.611677 l .8 2021-06-03 2021-06-03 Telephone Bib, 1.2.840.1 [id number] 2099 [id number] Methodi 00:00:00 00:00:[address] 3.430.2.7 Hospit a .3.203819 l .8 2021-06-02 2021-06-02 Clinical 1.2.840.1 [id number] 86850 Methodi 14:30:00 14:35:[address] 3.430.2.7 Hospit a .3.080069 l .8 2021-06-02 2021-06-02 Travel 1.2.840.1 1.2.484.987 6345 809223 Methodi 00:00:00 00:00:[address] 3.430.2.7 0.2.7.3.698 Ho spita .3.298206 084.8 l .8 2021-06-02 2021-06-02 Telephone Villagran, 1.2.840.1 [id number] 2099 305305 Methodi 00:00:00 00:00:00 Domenica Jason 44825.1.[address] 3.430.2.7 Hospit a .3.321940 l .8 2021-05-21 2021-05-21 Travel 1.2.840.1 1.2.812.697 8703 811992 Methodi 00:00:00 00:00:[address] 3.430.2.7 0.2.7.3.698 Ho spita .3.542743 084.8 l .8 2021-05-16 2021-05-16 Orders Villagran, 1.2.840.1 [id number] 0142 Methodi 00:00:00 00:00:00 Only Domenica Jason 19626.1.[address] 3.430.2.7 Hospit a .3.994783 l .8 2021-05-16 2021-05-16 Telephone Villagran, 1.2.840.1 [id number] 2100 036642 Methodi 00:00:00 00:00:00 Domenica Jason 69491.1.[address] 3.430.2.7 Hospit a .3.423756 l .8 2021-02-21 2021-02-21 Outpatient VILLAGRAN, [facility] [id number] [place] 00:00:00 00:00:00 DOMENICA [address] 2021-02-18 2021-02-18 Outpatient VILLAGRAN, [facility] [id number] [address] [place] 00:00:00 00:00:00 DOMENICA [address] 2021-01-28 2021-01-28 Outpatient VILLAGRAN, [facility] [id number] [place] 00:00:00 00:00:00 DOMENICA [address] 2021-01-13 2021-01-13 Outpatient VILLAGRAN, [facility] [id number] [address] [place] 00:00:00 00:00:00 DOMENICA [address] 2020-10-15 2020-10-15 Outpatient ARABELLABEN, [facility] [id number] [place] 00:00:00 00:00:00 SHILA [address] 2020-09-24 2020-09-24 Outpatient [facility] [id number] [place] 00:00:00 00:00:[address] 2020-06-27 2020-07-02 Inpatient KALOLWALA, [facility] 021 [id number] [place] 00:00:00 00:00:00 FAKHRI [address] 2020-06-25 2020-06-25 Outpatient BERNARD, [facility] [id number] [place] 00:00:00 00:00:00 ALBERTINA [address] 2020-06-25 2020-06-25 Outpatient BERNARD, [facility] [id number] [place] 00:00:00 00:00:00 ALBERTINA [address] 2020-04-19 2020-04-19 Outpatient BERNARD, [facility] [id number] [place] 00:00:00 00:00:00 ALBERTINA [address] 2020-03-14 2020-03-17 Inpatient BERNARD, [facility] 021 [id number] [place] 00:00:00 00:00:00 ALBERTINA [address] 2020-03-12 2020-03-12 Outpatient BERNARD, [facility] [id number] [place] 00:00:00 00:00:00 ALBERTINA [address] 2020-03-11 2020-03-11 Outpatient BROWN, [facility] [id number] [address] [place] 00:00:00 00:00:00 JOSE [address] 2020-03-06 2020-03-06 Outpatient VILLAGRAN, [facility] [id number] [place] 00:00:00 00:00:00 DOMENICA [address] 2020-03-06 2020-03-06 Outpatient VILLAGRAN, [facility] [id number] [place] 00:00:00 00:00:00 DOMENICA [address] 2020-02-05 2020-02-05 Outpatient BALDOMERO, [facility] [id number] [place] 00:00:00 00:00:00 JOSE 120 Method i 2019-12-30 2020-01-31 Inpatient LESLY, [facility] 066 [id number] [place] 00:00:00 00:00:00 AMITO 337 Method i 2020-01-17 2020-01-17 Outpatient BALDOMERO, [facility] [id number] [place] 00:00:00 00:00:00 JOSE 085 Method i 2019-12-22 2019-12-30 Inpatient SHEIKH [facility] [id number] [place] 00:00:00 00:00:00 SCARLET 081 Method i 2019-12-22 2019-12-22 Outpatient Job T Job T Lo 20 [id number] [facility] 10:00:00 10:00:00 Aylin Storm nm 2019-12-06 2019-12-13 [facility] [id number] [facility] 02:59:45 22:45:00 caroline Kaur [facility] 2019-12-06 2019-12-13 [facility] [id number] Memoria 02:59:45 22:45:00 caroline Kaur [facility] 2019-12-06 2019-12-13 Inpatient Jade THURMAN [facility] 7513 Memoria 00:40:00 17:45:00 ALIYA willson 2019-12-05 2019-12-13 Outpatient SOLIS Thurman 9 [id number] 21:59:45 17:45:00 Saypaco Kaur [facility] 2019-12-05 2019-12-13 Outpatient SOLIS Thurman 9 [id number] 21:59:45 17:45:00 Saypaco Kaur [facility] 2019-11-30 2019-12-01 Observatio [facility] 3435 [id number] Memoria 14:36:40 16:40:00 n caroline Figueroa [facility] 2019-11-30 2019-12-01 [facility]atio [facility] 3435 [id number] Memoria 14:36:40 16:40:00 n caroline Figueroa [facility] 2019-11-30 2019-12-01 Outpatient Jade JOHANSEN [facility] 7512 Memoria 14:37:00 11:40:00 VARSHA [facility] l 2019-11-30 2019-12-01 Outpatient Kennedy MH9 MH9 [id number] 09:36:40 11:40:00 Varsha 12 2019-06-02 2019-06-03 Outpatient nullFlavo [facility] [id number] Memoria 13:33:00 05:59:00 r Outpatient 08 l [facility] 2019-06-02 2019-06-03 Outpatient nullFlavo [facility] [id number] Memoria 13:33:00 05:59:00 r Outpatient 08 [facility] 2019-06-02 2019-06-02 Outpatient Lucinda Razo 2.16.840. 2.16.840.1 . [id number] 07:33:00 23:59:00 Leland 1.573219. 631535.3.61 08 3.615.36 5.36 2019-02-14 2019-02-15 Outpt Diag nullFlavo [facility] [id number] Memoria 20:43:00 04:59:00 Services r Outpatient 07 l [facility] 2019-02-14 2019-02-15 Outpt Diag nullFlavo [facility] [id number] Memoria 20:43:00 04:59:00 Services r Outpatient 07 [facility] 2019-02-14 2019-02-14 Outpatient Adrianne 2.16.840. 2.16.840.1. 3 [id number] 15:43:00 23:59:00 Gilda 1.665199. 259081.3.61 07 [place] 3.615.36 5.36 2019-01-03 2019-01-04 Emergency nullFlavo [facility] [id number] Memoria 21:23:58 01:07:[address] 2019-01-03 2019-01-04 Emergency nullFlavo [facility] [id number] Memoria 21:23:58 01:07:[address] 2019-01-03 2019-01-03 Outpatient DAV Alexandre9 MH9 [id number] 16:23:58 20:07:00 Hazel Edouard 11 2018-08-15 2018-08-16 Outpt Diag nullFlavo [facility] [id number] Memoria 18:26:00 05:59:00 Services r Outpatient 06 l [facility] 2018-08-15 2018-08-16 Outpt Diag nullFlavo [facility] [id number] Memoria 18:26:00 05:59:00 Services r Outpatient 06 l [facility] 2018-08-15 2018-08-15 Outpatient India, 2.16.840. 2.16.840.1 . [id number] 12:26:00 23:59:00 Miguelito 1.516328. 088798.3.61 06 3.615.30 5.30 2018-06-01 2018-06-02 Outpt Diag nullFlavo [facility] [id number] Memoria 14:45:00 05:59:00 Services r Outpatient 05 l [facility] 2018-06-01 2018-06-02 Outpt Diag nullFlavo [facility] [id number] Memoria 14:45:00 05:59:00 Services r Outpatient 05 l [facility] 2018-06-01 2018-06-01 Outpatient Shazia Roamn 2.16.840. 2.16.840. 1. [id number] 08:45:00 23:59:00 Caroline 1.497279. 370540.3.61 05 3.615.36 5.36 2018-05-31 2018-06-01 Outpatient [facility] [id number] Memoria 14:02:00 05:59:00 r [place] 10 [facility] 2018-05-31 2018-06-01 Outpatient [facility] 3435 [id number] Memoria 14:02:00 05:59:00 r Brian 10 [facility] 2018-05-31 2018-05-31 Outpatient Abel Mccray [facility] [id number] 08:02:00 23:59:00 R 10 2018-03-24 2018-03-25 Outpt Diag nullFlavo [facility] [id number] Memoria 14:51:00 04:59:00 Services r Outpatient 04 l [facility] 2018-03-24 2018-03-25 Outpt Diag nullFlavo [facility] [id number] Memoria 14:51:00 04:59:00 Services r Outpatient 04 l [facility] [place] [facility] 2018-03-24 2018-03-24 Outpatient Abel, Mccray 2.16.840. 2.16.840. 1. [id number] 09:51:00 23:59:00 R 1.586911. 279275.3.61 04 3.615.36 5.36 2017-01-18 2017-01-19 Outpt Diag nullFlavo [facility] [id number] Memoria 15:49:00 04:59:00 Services r Outpatient 03 l Imaging [facility] 2017-01-18 2017-01-19 Outpt Diag nullFlavo [facility] [id number] Memoria 15:49:00 04:59:00 Services r Outpatient 03 l [facility] 2017-01-18 2017-01-18 Outpatient Bavishi, 2.16.840. 2.16.840.1. [id number] 10:49:00 23:59:00 Jennifer 1.927043. [id number] 03 3.615.36 5.36 2016-09-30 2016-10-01 Outpt Diag nullFlavo [facility] [id number] Memoria 18:58:00 04:59:00 Services r Outpatient 02 l Imaging [facility] 2016-09-30 2016-10-01 Outpt Diag nullFlavo [facility] [id number] Memoria 18:58:00 04:59:00 Services r Outpatient 02 l [facility] 2016-09-30 2016-09-30 Outpatient Bavishi, 29 29 [id number] 13:58:00 23:59:00 Jennifer 02 2016-09-17 2016-09-18 Outpt Diag nullFlavo [facility] [id number] Memoria 19:43:00 04:59:00 Services r Outpatient 01 l [facility] 2016-09-17 2016-09-18 Outpt Diag nullFlavo [facility] [id number] Memoria 19:43:00 04:59:00 Services r Outpatient 01 [facility] 2016-09-17 2016-09-17 Outpatient Bavishi, 2.16.840. 2.16.840.1. [id number] 14:43:00 23:59:00 Jennifer 1.303926. [id number] 01 3.615.36 5.36 2016-02-20 2016-02-20 Emergency [facility] [id number] Memoria 12:06:00 14:47:00 r Brian [address] [place] [address] 2016-02-20 2016-02-20 Emergency [facility] [id number] Memoria 12:06:00 14:47:00 caroline Torres [address] [place] [address] 2016-02-20 2016-02-20 Outpatient Mary, MH9 9 [id number] 07:06:00 09:47:00 Omero Alfaro [facility] 2015-01-21 2015-01-22 Outpatient [facility] [id number] Memoria 13:05:00 04:59:00 caroline Torres [address] [place] [address] 2015-01-21 2015-01-22 Outpatient [facility] 3435 [id number] Memoria 13:05:00 04:59:00 caroline Torres [address] [place] [address] 2015-01-21 2015-01-21 Outpatient Shazia Roman [facility] [id number] 08:05:00 23:59:00 R 08 Results Test Description Test Time Test Comments Results Result Comments Source Hydraulic / Connor Lift with Sling 2022-08-06 19:03:02 Test Item Value Reference Range Interpretation Comme nts SUPPLIER NAME (test code = 6415) Upshot SUPPLIER PHONE (test code = 6416) ORDER STATUS (test code = 6417) Delivery Successful DELIVERY NOTE (test code = 6419) REQUESTED DELIVEY DATE (test code = 08/05/2022 6420) ITEM DESCRIPTION (test code = 6423) Patient Sling, Commode Opening, Qty: 1 Medium EXPECTED DELIVERY DATE (test code = 08/06/2022 6421) ACTUAL DELIVERY DATE (test code = 08/06/2022 6422) [facility] with [id number] 19:03:02 Test Item Value Reference Range Interpretation Comments SUPPLIER NAME (test [facility] code = 6415) SUPPLIER PHONE (test code = 6416) ORDER STATUS (test code Delivery Successful = 6417) DELIVERY NOTE (test code = 6419) REQUESTED DELIVEY DATE 08/05/2022 (test code = 6420) ITEM DESCRIPTION (test Patient Sling, Commode Qty: 1 code = 6423) Opening, Medium EXPECTED DELIVERY DATE 08/06/2022 (test code = 6421) ACTUAL DELIVERY DATE 08/06/2022 (test code = 6422) [facility] [id number] 14:12:00 Test Item Value Reference Range Interpretation Comments POC glucose (test code 206 mg/dL 65-99 H Opera tor Name: = 87959-1) Mick IsabelDevice ID : [id number] able: [facility] Notified pmo lead Interpretation Abnormal (test code = 77812-5) [facility]2023-02-08 14:12:00 Test Item Value Reference Range Interpretation Comments POC glucose (test code 206 mg/dL 65-99 H Opera tor Name: = 29306-6) Mick Youngevice ID : [id number] able: [facility] Notified pmo lead Interpretation Abnormal (test code = 70616-6) [facility] SeixanvlZLFR-LcP-8 (COVID-19) RNA [Presence] in Respiratory specimen by BENNIE with probe [id number] 18:16:04 Test Item Value Reference Range Interpretation Comments SARS-CoV-2 (COVID-19) RNA Not detected [Presence] in Respiratory specimen by BENNIE with probe detection (test code = 41867-9) Whether patient is employed in a Unknown healthcare setting (test code = 51153-7) Whether the patient has symptoms Unknown related to condition of interest (test code = 65588-2) Whether the patient was Unknown hospitalized for condition of interest (test code = 30633-6) Whether the patient was admitted Unknown to intensive care unit (ICU) for condition of interest (test code = 96447-0) Whether patient resides in a Unknown congregate care setting (test code = 50443-4) status (test code = Unknown 45389-1) Date and time of symptom onset Unknown (test code = 73268-7) MARCIA OLIVASSARS-CoV-2 (COVID-19) RNA [Presence] in Respiratory specimen by BENNIE with probe [id number] 10:12:40 Test Item Value Reference Range Interpretation Comments SARS-CoV-2 (COVID-19) RNA Not detected [Presence] in Respiratory specimen by BENNIE with probe detection (test code = 24125-2) Whether patient is employed in a Unknown healthcare setting (test code = 68690-9) Whether the patient has symptoms Unknown related to condition of interest (test code = 49379-2) Whether the patient was Unknown hospitalized for condition of interest (test code = 37950-5) Whether the patient was admitted Unknown to intensive care unit (ICU) for condition of interest (test code = 05893-2) Whether patient resides in a Unknown congregate care setting (test code = 75389-7) status (test code = Unknown 85703-7) Date and time of symptom onset Unknown (test code = 01785-8) MARCIA BECKFORD [facility] referral [id number] 23:53:00 Test Item Value Reference Range Interpretation Comments [facility] test name Metanephrines, (test code = Plasma to [facility] 2566) [id number] [facility] test see comment Metanephrines, Plasma result (test (Free) [facility] mitch t code code = 6487) 0000327 Normeta nephrine <0.10 nmol/L (R ef Interval: 0.00- 0.89) - - - - - - - - - - - - - - - - - - - - - - - - - - - - - - Metanep hrine 0.13 nmol/L (Re f Interval: 0.00- 0.49) - - - - - - - - - - - - - - - - - - - - - - - - - - - - - - Metanep hrines Interpretation See Note INTERPRETIVE INFORMATION: Metanephrines, Plasma (Free) This mitch t is useful in the d etection of pheochromocy sangeetha, a rare neuroendoc rine tumor. The jules rity of patients with pheochromocytom a have a plasma normetan ephrine concentration i n excess of 2.2 nmol/L a nd/or a metanephrine concentration i n excess of 1.1 nmol/L. Increased concentrations of these analytes serve as confirmation fo r diagnosis. Maria Fernanda ents with essential hyper tension and plasma concentrations of normetanephrine below 0.9 nmol/L and a metanephrine concentration b elow 0.5 nmol/L, can be excluded from further te sting. If clinical suspic ion remains, repeat testing or testing for metanephrines i n a 24-hr. urine sp ecimen should be consi dered. This test was d eveloped and its perform ance characteristics determined by [facility]. I t has not been cleared or approved by the [place] Food and Drug Administration. This test was perfor med in a CLIA certified laboratory and is intended for cl inical purposes. ========= ========= Test performed by:[facility] [place] [address] 72829 DOUG (test code Metanephrines, = DOUG) Plasma to [facility] [id number] [facility] [id number] 23:53:00 Test Item Value Reference Range Interpretation Comments [facility] test name Metanephrines, (test code = Plasma to [facility] 2566) [id number] [facility] test see comment Metanephrines, Plasma result (test (Free) [facility] [employer] code code = 8738) [id number] Normeta nephrine <0.10 nmol/L (R ef Interval: 0.00- 0.89) - - - - - - - - - - - - - - - - - - - - - - - - - - - - - - Metanep hrine 0.13 nmol/L (Re f Interval: 0.00- 0.49) - - - - - - - - - - - - - - - - - - - - - - - - - - - - - - Metan ephrines Interpretation See Note INTERPRETIVE INFORMATION: Metanephrines, Plasma (Free) This mitch t is useful in the d etection of pheochromocy sangeetha, a rare neuroendoc rine tumor. The jules rity of patients with pheochromocytom a have a plasma normetan ephrine concentration i n excess of 2.2 nmol/L a nd/or a metanephrine concentration i n excess of 1.1 nmol/L. Increased concentrations of these analytes serve as confirmation fo r diagnosis. Maria Fernanda ents with essential hyper tension and plasma concentrations of normetanephrine below 0.9 nmol/L and a metanephrine concentration b elow 0.5 nmol/L, can be excluded from further te sting. If clinical suspic ion remains, repeat testing or testing for metanephrines i n a 24-hr. urine sp ecimen should be consi dered. This test was d tataeloped and its perform ance characteristics determined by [facility]. I t has not been cleared or approved by the [place] Food and Drug Administration. This test was perfor med in a CLIA certified laboratory and is intended for cl inical purposes. ========= ========= Test performed by:[facility] [id number] [place], [place] [address] DOUG (test code Metanephrines, = DOUG) Plasma to [facility] [id number] [facility] [id number] (COVID-19) RNA [Presence] in Respiratory specimen by BENNIE with probe [id number] 10:16:32 Test Item Value Reference Range Interpretation Comments SARS-CoV-2 (COVID-19) RNA Not detected [Presence] in Respiratory specimen by BENNIE with probe detection (test code = 47122-1) Whether patient is employed in a Unknown healthcare setting (test code = 42864-6) Whether the patient has symptoms Unknown related to condition of interest (test code = 67373-4) Whether the patient was Unknown hospitalized for condition of interest (test code = 11007-7) Whether the patient was admitted Unknown to intensive care unit (ICU) for condition of interest (test code = 77633-4) Whether patient resides in a Unknown congregate care setting (test code = 85538-0) status (test code = Unknown 82616-0) Date and time of symptom onset Unknown (test code = 23131-1) [facility] [id number] 17:06:00 Test Item Value Reference Range Interpretation Comments GLUCOSE BEDSIDE TESTING (test code 135 mg/dL 70-110 H = GLUBED) GLUCOSE BEDSIDE [id number] 14:44:00 Test Item Value Reference Range Interpretation Comments GLUCOSE BEDSIDE TESTING (test code 566 mg/dL 70-110 HH = GLUBED) GLUCOSE BEDSIDE [id number] 14:32:00 Test Item Value Reference Range Interpretation Comments GLUCOSE BEDSIDE TESTING (test code 340 mg/dL 70-110 H = GLUBED) GLUCOSE BEDSIDE [id number] 14:31:00 Test Item Value Reference Range Interpretation Comments GLUCOSE BEDSIDE TESTING (test code 232 mg/dL 70-110 H = GLUBED) GLUCOSE BEDSIDE [id number] 14:30:00 Test Item Value Reference Range Interpretation Comments GLUCOSE BEDSIDE TESTING (test code 198 mg/dL 70-110 H = GLUBED) GLUCOSE BEDSIDE [id number] 11:48:00 Test Item Value Reference Range Interpretation Comments GLUCOSE BEDSIDE TESTING (test code 222 mg/dL 70-110 H = GLUBED) GLUCOSE BEDSIDE [id number] 16:51:00 Test Item Value Reference Range Interpretation Comments GLUCOSE BEDSIDE TESTING (test code 179 mg/dL 70-110 H = GLUBED) GLUCOSE BEDSIDE [id number] 11:41:00 Test Item Value Reference Range Interpretation Comments GLUCOSE BEDSIDE TESTING (test code 248 mg/dL 70-110 H = GLUBED) GLUCOSE BEDSIDE [id number] 08:22:00 Test Item Value Reference Range Interpretation Comments GLUCOSE BEDSIDE TESTING (test code 198 mg/dL 70-110 H = GLUBED) GLUCOSE BEDSIDE [id number] 20:26:00 Test Item Value Reference Range Interpretation Comments GLUCOSE BEDSIDE TESTING (test code 254 mg/dL 70-110 H = GLUBED) GLUCOSE BEDSIDE [id number] 18:41:00 Test Item Value Reference Range Interpretation Comments GLUCOSE BEDSIDE TESTING (test code 257 mg/dL 70-110 H = GLUBED) GLUCOSE BEDSIDE [id number] 11:47:00 Test Item Value Reference Range Interpretation Comments GLUCOSE BEDSIDE TESTING (test code 269 mg/dL 70-110 H = GLUBED) GLUCOSE BEDSIDE [id number] 08:34:00 Test Item Value Reference Range Interpretation Comments GLUCOSE BEDSIDE TESTING (test code 209 mg/dL 70-110 H = GLUBED) GLUCOSE BEDSIDE [id number] 21:46:00 Test Item Value Reference Range Interpretation Comments GLUCOSE BEDSIDE TESTING (test code 318 mg/dL 70-110 H = GLUBED) GLUCOSE BEDSIDE [id number] 16:27:00 Test Item Value Reference Range Interpretation Comments GLUCOSE BEDSIDE TESTING (test code 461 mg/dL 70-110 HH = GLUBED) GLUCOSE BEDSIDE [id number] 14:03:00 Test Item Value Reference Range Interpretation Comments GLUCOSE BEDSIDE TESTING (test code 241 mg/dL 70-110 H = GLUBED) GLUCOSE BEDSIDE [id number] 08:02:00 Test Item Value Reference Range Interpretation Comments GLUCOSE BEDSIDE TESTING (test code 157 mg/dL 70-110 H = GLUBED) GLUCOSE BEDSIDE [id number] 04:52:00 Test Item Value Reference Range Interpretation Comments GLUCOSE BEDSIDE TESTING (test code 194 mg/dL 70-110 H = GLUBED) GLUCOSE BEDSIDE [id number] 16:40:00 Test Item Value Reference Range Interpretation Comments GLUCOSE BEDSIDE TESTING (test code 294 mg/dL 70-110 H = GLUBED) GLUCOSE BEDSIDE [id number] 13:26:00 Test Item Value Reference Range Interpretation Comments GLUCOSE BEDSIDE TESTING (test code 256 mg/dL 70-110 H = GLUBED) GLUCOSE BEDSIDE [id number] 09:18:00 Test Item Value Reference Range Interpretation Comments GLUCOSE BEDSIDE TESTING (test code 149 mg/dL 70-110 H = GLUBED) GLUCOSE BEDSIDE [id number] 06:32:00 Test Item Value Reference Range Interpretation Comments GLUCOSE BEDSIDE TESTING (test code 137 mg/dL 70-110 H = GLUBED) GLUCOSE BEDSIDE [id number] 22:43:00 Test Item Value Reference Range Interpretation Comments GLUCOSE BEDSIDE TESTING (test code 226 mg/dL 70-110 H = GLUBED) GLUCOSE BEDSIDE [id number] 17:46:00 Test Item Value Reference Range Interpretation Comments GLUCOSE BEDSIDE TESTING (test code 149 mg/dL 70-110 H = GLUBED) RULE OUT [place] [id number] 12:45:00 Test Item Value Reference Range Interpretation Comments CREATINE KINASE 37 Unit/L 26-192 N (CK) (test code = CK) TROP-I HIGH 4.9 ng/L 0-34 N CAUTION: Units of the SENSITIVITY (test current te st methodology code = TROPIHS) (ng/L) diffe rfrom the prior test meth odology (ng/mL) by a fa ctor of 1000. 99t h Percentile Uppe r Reference Limit (URL):Fem ales: 34 ng/LMales: 54 n g/L In order to distin guish acute elevations of h igh sensitivitytrop onin from other clinical conditions, the FourthUnive rsal Definition of M yocardial Infarction stressesclinica l assessment and the demonstration o f a rise and/orfall in s erial troponin result s above the URL. Results fr om different metho dologies should not be c omparedto one another as quantitative re sults and URLs may varyby method. GLUCOSE BEDSIDE [id number] 11:54:00 Test Item Value Reference Range Interpretation Comments GLUCOSE BEDSIDE TESTING (test code 228 mg/dL 70-110 H = GLUBED) GLUCOSE BEDSIDE [id number] 07:58:00 Test Item Value Reference Range Interpretation Comments GLUCOSE BEDSIDE TESTING (test code 170 mg/dL 70-110 H = GLUBED) GLUCOSE BEDSIDE [id number] 20:46:00 Test Item Value Reference Range Interpretation Comments GLUCOSE BEDSIDE TESTING (test code 206 mg/dL 70-110 H = GLUBED) GLUCOSE BEDSIDE [id number] 16:52:00 Test Item Value Reference Range Interpretation Comments GLUCOSE BEDSIDE TESTING (test code 252 mg/dL 70-110 H = GLUBED) - MRI BRAIN W/O [id number] 13:10:00 [facility] 1960 Sex: F FAX: Odette Wayne MD Camps: PM St: ADM Name: CATARINO ALVAREZ [facility] : 1960 Age/S: 62/F [address] [place] Unit #: [id number] Loc: [address] [place] [address] Phys: Odette Flannery MD Acct: [id number] Dis Date: Status: ADM IN PHONE #: [phone] Exam Date: 03/21/2022 1140 FAX #: Reason: ACUTE STROKE EXAMS: CPT: [id number] MRI BRAIN W/O CONTRAST 01962 MRI brain without contrast 03/21/2022 1:09 PM CLINICAL INDICATION: Stroke TECHNIQUE: Multiplanar, multisequence MR imaging of the brain was performed utilizing the following imaging sequences: Axial T1, T2, FLAIR, GRE, and DWI; sagittal and coronal T1-weighted images. 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 There is no hematoma, mass, hydrocephalus, or extra-axial collection. There is mild chronic microvascular ischemia. There is a small chronic infarct in the right posterior paramedian parietal lobe. Normal appearing flow-voids are present in the major intracranial vascularstructures. The sellar and pineal regions are normal. The craniovertebral junction is intact. The orbits, face, and skull base are without worrisome finding. IMPRESSION: Acute nonhemorrhagic posteriorright striatocapsular infarct. at 1310 Reported and signed by: Dillan Kirby M.D. CC: Odette Flannery MD Technologist: Ibis Argueta RT(R)(MR) Transcribed Date/Time/By: 03/21/2022 (1310) :[email or web address] Orig Print D/T: S: 03/21/2022 (7947) PAGE 1 Signed ReportGLUCOSE BEDSIDE [id number] 12:45:00 Test Item Value Reference Range Interpretation Comments GLUCOSE BEDSIDE TESTING (test code 139 mg/dL 70-110 H = GLUBED) [id number] 10:43:00 Test Item Value Reference Range Interpretation Comments GLYCOSYLATED HEMOGLOBIN (HA1C) 13.7 % A1C 0.0-5.7 H (test code = GLYHGB) ESTIMATED AVERAGE GLUCOSE (test 346 MG/DLest code = EAG) GLUCOSE BEDSIDE [id number] 08:51:00 Test Item Value Reference Range Interpretation Comments GLUCOSE BEDSIDE TESTING (test code 163 mg/dL 70-110 H = GLUBED) COMPREHENSIVE METABOLIC [id number] 05:38:00 Test Item Value Reference Range Interpretation Comments SODIUM (test code = NA) 137 mmol/L 134-147 N POTASSIUM (test code = 3.6 mmol/L 3.4-5.0 N K) CHLORIDE (test code = 105 mmol/L 100-108 CL) CARBON DIOXIDE (test 28 mmol/L 21-32 N code = CO2) ANION GAP (test code = 4.0 GAP calc 4.0-15.0 N GAP) GLUCOSE (test code = 172 MG/DL 70-110 H GLU) BLOOD UREA NITROGEN 27 MG/DL 7-18 H (test code = BUN) GLOMERULAR FILTRATION >=60 max estimate >60 RATE (test code = GFR) estGFR CREATININE (test code = 0.6 MG/DL 0.6-1.0 N CREAT) TOTAL PROTEIN (test code 4.9 G/DL 6.4-8.2 L = PROT) ALBUMIN (test code = 1.7 G/DL 3.4-5.0 L ALB) GLOBULIN (test code = 3.2 GM/dL GLOB) ALBUMIN/GLOBULIN RATIO 0.5 RATIO 1.2-2.2 L (test code = A/G) CALCIUM (test code = CA) 9.8 MG/DL 8.5-10.1 N BILIRUBIN TOTAL (test 0.20 MG/DL 0.2-1.2 N code = BILT) SGOT/AST (test code = 11 Unit/L 15-37 L AST) SGPT/ALT (test code = 13 Unit/L 12-78 N ALT) ALKALINE PHOSPHATASE 94 Unit/L 45-117 N TOTAL (test code = ALKP) Comment: FASTING IN AMLIPID PROFILE (CORONARY RISK)2022-03-21 05:38:00 Test Item Value Reference Range Interpretation Comments TRIGLYCERIDES (test 297 MG/DL 0-150 H code = TRIG) CHOLESTEROL (test 344 MG/DL 133-200 H code = CHOL) CHOLESTEROL/HDL 6.04 RATIO See_Comment RISK ASSOCIA BRIGHT WITH RATIO (test code = CHOL/HDL RATIOS: RISK CHOLHDL) MALE FEMALE1/2 AVERAGE 3.43 3.27AVERAG E 4.97 4.442X AVERAGE 9.55 7.053X AVERAGE 23.39 11.04 NOTE THAT THE REFERENCE VALUE IS RELATED TO RISK LEVELS ASRECOMMENDED B Y [facility] . [Automated mess age] The system which [employer] nerated this result tra nsmitted reference range : 0-. The reference range was not used to interpr et this result as normal/abnormal . HDL CHOLESTEROL 57 MG/DL 40-59 N (test code = HDL) NON-HDL CHOLESTEROL 287 mg/dL <130 H (test code = NHDL) LIPOPROTEIN LDL 221 MG/DL 0-129 H <100 OPTIMAL 100 - 129 (test code = LDL) NEAR OPTIM AL/ABOVE [id number] - 15 9 [id number] - 189 HIGH>OR= 190 VE RY HIGHNOTE THAT G UIDELINES ARE PROVIDED BY NATIONAL CHOLESTEROLEDUC ATION PROGRAM ADULT T REATMENT PANEL III LDL/HDL (test code 3.87 Ratio See_Comment H [Automat ed message] The = LDL/HDL) system which [employer] nerated this result tra nsmitted reference range : 1.48-3.22 Avg. The reference range was not used to interpr et this result as normal/abnormal . Comment: FASTING IN AMCBC W/AUTO [id number] 05:33:00 Test Item Value Reference Range Interpretation Comments WHITE BLOOD CELL (test code = 6.9 K/mm3 3.5-11.0 N WBC) RED BLOOD CELL (test code = 4.08 M/mm3 4.70-6.10 L RBC) HEMOGLOBIN (test code = HGB) 13.1 G/DL 10.4-14.9 N HEMATOCRIT (test code = HCT) 37.5 % 31.5-44.1 N MEAN CELL VOLUME (test code = 91.9 Fl 84.5-98.6 N MCV) MEAN CELL HGB (test code = MCH) 32.1 pg 27.0-34.2 N MEAN CELL HGB CONCETRATION 34.9 G/DL 31.5-34.0 H (test code = MCHC) RED CELL DISTRIBUTION WIDTH 13.1 SD 11.5-14.5 N (test code = RDW) PLATELET COUNT (test code = 342 K/mm3 150-450 N PLT) MEAN PLATELET VOLUME (test code 10.40 fL 7.0-10.5 N = MPV) NEUTROPHIL % (test code = NT%) 49.5 % 40-76 IMMATURE GRANULOCYTE % (test 0.1 % 0.0-5.0 N code = IG%) LYMPHOCYTE % (test code = LY%) 40.1 % 20.5-51.1 N MONOCYTE % (test code = MO%) 6.6 % 1.7-9.3 N EOSINOPHIL % (test code = EO%) 3.3 % 0.0-6.0 N BASOPHIL % (test code = BA%) 0.4 % 0.0-2.0 N NUCLEATED RBC % (test code = 0.0 /100WBC% 0.0-1.0 N NRBC%) NEUTROPHIL # (test code = NT#) 3.4 K/mm3 1.8-7.6 N IMMATURE GRANULOCYTE # (test 0.01 x10 3/uL 0.00-0.03 N code = IG#) LYMPHOCYTE # (test code = LY#) 2.8 K/mm3 0.6-3.2 N MONOCYTE # (test code = MO#) 0.5 K/mm3 0.3-1.1 N EOSINOPHIL # (test code = EO#) 0.2 K/mm3 0.0-0.4 N BASOPHIL # (test code = BA#) 0.0 K/mm3 0.0-0.1 N NUCLEATED RBC # (test code = 0.0 K/mm3 0.0-0.1 N NRBC#) MANUAL DIFF REQUIRED (test code NO DIFF/SCN CRITERIA = MDIFF) GLUCOSE BEDSIDE [id number] 00:42:00 Test Item Value Reference Range Interpretation Comments GLUCOSE BEDSIDE TESTING (test code 242 mg/dL 70-110 H = GLUBED) TROP-I HIGH [id number] 23:06:00 Test Item Value Reference Range Interpretation Comments TROP-I HIGH 7.6 ng/L 0-34 N CAUTION: Units of the SENSITIVITY (test current te st methodology code = TROPIHS) (ng/L) diffe rfrom the prior test meth odology (ng/mL) by a fa ctor of 1000. 99t h Percentile Uppe r Reference Limit (URL):Fem ales: 34 ng/LMales: 54 n g/L In order to distin guish acute elevations of h igh sensitivitytrop onin from other clinical conditions, the FourthUnive rsal Definition of M yocardial Infarction stressesclinica l assessment and the demonstration o f a rise and/orfall in s erial troponin result s above the URL. Results fr om different metho dologies should not be c omparedto one another as quantitative re sults and URLs may varyby method. Completed by Nursing: NOGLUCOSE BEDSIDE [id number] 20:08:00 Test Item Value Reference Range Interpretation Comments GLUCOSE BEDSIDE TESTING (test code 340 mg/dL 70-110 H = GLUBED) LIPID PROFILE (CORONARY RISK)2022-03-20 18:57:00 Test Item Value Reference Range Interpretation Comments TRIGLYCERIDES (test 486 MG/DL 0-150 H code = TRIG) CHOLESTEROL (test 388 MG/DL 133-200 H code = CHOL) CHOLESTEROL/HDL 6.93 RATIO See_Comment RISK ASSOCIA BRIGHT WITH RATIO (test code = CHOL/HDL RATIOS: RISK CHOLHDL) MALE FEMALE1/2 AVERAGE 3.43 3.27AVERAG E 4.97 4.442X AVERAGE 9.55 7.053X AVERAGE 23.39 11.04 NOTE THAT THE REFERENCE VALUE IS RELATED TO RISK LEVELS ASRECOMMENDED B Y THE [facility] . [Automated mess age] The system which ge nerated this result tra nsmitted reference range : 0-. The reference range was not used to interpr et this result as normal/abnormal . HDL CHOLESTEROL 56 MG/DL 40-59 N (test code = HDL) NON-HDL CHOLESTEROL 332 mg/dL <130 H (test code = NHDL) LIPOPROTEIN LDL 243 MG/DL 0-129 H <100 OPTIMAL 100 - 129 (test code = LDL) NEAR OPTIM AL/ABOVE [id number] - 15 9 [id number] - 189 HIGH>OR= 190 VE RY HIGHNOTE THAT G UIDELINES ARE PROVIDED BY NATIONAL CHOLESTEROLEDUC ATION PROGRAM ADULT T REATMENT PANEL III LDL/HDL (test code 4.33 Ratio See_Comment H [Automat ed message] The = LDL/HDL) system which ge nerated this result tra nsmitted reference range : 1.48-3.22 Avg. The reference range was not used to interpr et this result as normal/abnormal . Completed by Nursing: NOComment: FastingTROP-I HIGH [id number] 18:57:00 Test Item Value Reference Range Interpretation Comments TROP-I HIGH 8.0 ng/L 0-34 N CAUTION: Units of the SENSITIVITY (test current te st methodology code = TROPIHS) (ng/L) diffe rfrom the prior test meth odology (ng/mL) by a fa ctor of 1000. 99t h Percentile Uppe r Reference Limit (URL):Fem ales: 34 ng/LMales: 54 n g/L In order to distin guish acute elevations of h igh sensitivitytrop onin from other clinical conditions, the FourthUnive rsal Definition of M yocardial Infarction stressesclinica l assessment and the demonstration o f a rise and/orfall in s erial troponin result s above the URL. Results fr om different metho dologies should not be c omparedto one another as quantitative re sults and URLs may varyby method. Completed by Nursing: NOComment: FastingGLUCOSE BEDSIDE [id number] 17:28:00 Test Item Value Reference Range Interpretation Comments GLUCOSE BEDSIDE TESTING (test code 469 mg/dL 70-110 HH = GLUBED) BASIC METABOLIC [id number] 14:54:00 Test Item Value Reference Range Interpretation Comments SODIUM (test code = NA) 129 mmol/L 134-147 L POTASSIUM (test code = 5.2 mmol/L 3.4-5.0 H K) CHLORIDE (test code = 93 mmol/L 100-108 L CL) CARBON DIOXIDE (test 31 mmol/L 21-32 N code = CO2) ANION GAP (test code = 5.0 GAP calc 4.0-15.0 N GAP) GLUCOSE (test code = 626 MG/DL 70-110 HH GLU) BLOOD UREA NITROGEN 32 MG/DL 7-18 H (test code = BUN) GLOMERULAR FILTRATION >=60 max estimate >60 RATE (test code = GFR) estGFR CREATININE (test code = 0.9 MG/DL 0.6-1.0 N CREAT) CALCIUM (test code = CA) 10.2 MG/DL 8.5-10.1 H Completed by Nursing: NOTROP-I HIGH [id number] 14:54:00 Test Item Value Reference Range Interpretation Comments TROP-I HIGH 8.6 ng/L 0-34 N CAUTION: Units of the SENSITIVITY (test current te st methodology code = TROPIHS) (ng/L) diffe rfrom the prior test meth odology (ng/mL) by a fa ctor of 1000. 99t h Percentile Uppe r Reference Limit (URL):Fem ales: 34 ng/LMales: 54 n g/L In order to distin guish acute elevations of h igh sensitivitytrop onin from other clinical conditions, the FourthUnive rsal Definition of M yocardial Infarction stressesclinica l assessment and the demonstration o f a rise and/orfall in s erial troponin result s above the URL. Results fr om different metho dologies should not be c omparedto one another as quantitative re sults and URLs may varyby method. Completed by Nursing: NOCOVID 19 Asymptomatic IH [id number] 14:53:00 Test Item Value Reference Range Interpretation Comments COVID 19 Asymptomatic NEGATIVE Negative Per ma nufacturer, IH AG (test code = negative results should COVNONPUIAG) be treated aspresumptive a nd, if inconsistent wi th clinical signs andsymptoms or necessary for p atient management, verónica uld betested with a n alternative mol ecular assay. Negative resultsdo not p reclude SARS-CoV-2 infe ction and should not be usedas the sole basis for patient man agement decisions. Nega tive results should be considered in t he context of apat ient's recent exposure s, history, presen ce of clinicalsigns a nd symptoms consis tent with COVID-19. PROTHROMBIN [id number] 14:44:00 Test Item Value Reference Range Interpretation Comments PT PATIENT (test 9.4 SECONDS 9.3-12.9 N code = PTP) INTERNATIONAL NORMAL 0.83 INR Unit 0.8-1.2 N TARGE T INR BY RATIO (test code = INDICATIO N Indication INR) INR1. Prophylax is of venous thrombos is 2.0 - 3.0 (orthoped ic surgery), Proph ylaxis of venous throm bosis (other than hig h-risk surgery), Treat ment of Deep Vein Thrombosis/Pulm onary Embolism, Preve ntion of systemic emb olism - Tissue heart va lves, Acute Myocardia l Infarction (to prevent systemic emboli sm), Valvular heart disease, Acute Myocardial Infa rction (to prevent sys temic embolism), Valv ular heart disease, Atrial Fibrillation, Bileaflet mecha nical valve in aortic position.2. Mec hanical prosthetic valv es (high risk), 2. 5 - 3.5 Presence of Lup us Anticoagulant o r Antiphospholipi d Antibodies, Pre vention of systemic emb olism - Acute Myocardia l Infarction (to prevent recurrent infar ct). THROMBOPLASTIN TIME [id number] 14:44:00 Test Item Value Reference Range Interpretation Comments THROMBOPLASTIN TIME PARTIAL 28.3 SECONDS 26-35 N (test code = PTT) CBC W/AUTO [id number] 14:43:00 Test Item Value Reference Range Interpretation Comments WHITE BLOOD CELL (test code = 6.1 K/mm3 3.5-11.0 N WBC) RED BLOOD CELL (test code = 4.41 M/mm3 4.70-6.10 L RBC) HEMOGLOBIN (test code = HGB) 13.8 G/DL 10.4-14.9 N HEMATOCRIT (test code = HCT) 40.5 % 31.5-44.1 N MEAN CELL VOLUME (test code = 91.8 Fl 84.5-98.6 N MCV) MEAN CELL HGB (test code = MCH) 31.3 pg 27.0-34.2 N MEAN CELL HGB CONCETRATION 34.1 G/DL 31.5-34.0 H (test code = MCHC) RED CELL DISTRIBUTION WIDTH 12.7 SD 11.5-14.5 N (test code = RDW) PLATELET COUNT (test code = 331 K/mm3 150-450 N PLT) MEAN PLATELET VOLUME (test code 10.60 fL 7.0-10.5 H = MPV) NEUTROPHIL % (test code = NT%) 68.8 % 40-76 N IMMATURE GRANULOCYTE % (test 0.3 % 0.0-5.0 N code = IG%) LYMPHOCYTE % (test code = LY%) 22.7 % 20.5-51.1 N MONOCYTE % (test code = MO%) 6.2 % 1.7-9.3 N EOSINOPHIL % (test code = EO%) 1.3 % 0.0-6.0 N BASOPHIL % (test code = BA%) 0.7 % 0.0-2.0 N NUCLEATED RBC % (test code = 0.0 /100WBC% 0.0-1.0 N NRBC%) NEUTROPHIL # (test code = NT#) 4.2 K/mm3 1.8-7.6 N IMMATURE GRANULOCYTE # (test 0.02 x10 3/uL 0.00-0.03 N code = IG#) LYMPHOCYTE # (test code = LY#) 1.4 K/mm3 0.6-3.2 N MONOCYTE # (test code = MO#) 0.4 K/mm3 0.3-1.1 N EOSINOPHIL # (test code = EO#) 0.1 K/mm3 0.0-0.4 N BASOPHIL # (test code = BA#) 0.0 K/mm3 0.0-0.1 N NUCLEATED RBC # (test code = 0.0 K/mm3 0.0-0.1 N NRBC#) MANUAL DIFF REQUIRED (test code NO DIFF/SCN CRITERIA = MDIFF) GLUCOSE BEDSIDE [id number] 14:19:00 Test Item Value Reference Range Interpretation Comments GLUCOSE BEDSIDE TESTING (test code 543 mg/dL 70-110 HH = GLUBED) - XR CHEST 1 [id number] 14:19:00 [facility] 1960 Sex: F Name: CATARINO ALVAREZ [facility] : 1960 Age/S: 62 / F [id number] [address] [place] Unit #: [id number] Loc: [place] [address] Phys: Jaden Flores DO Acct: [id number] Dis Date: Status: PRE ER PHONE #: [phone] Exam Date: 03/20/2022 1404 FAX #: Reason: Code Stroke EXAMS: CPT: [id number] XR CHEST 1 V [id number] Time: DAP (Gy m2): Air Kerma (mGy): Chest Radiograph History: Code Stroke Comparison: None at this time Location: 5 A single frontal view of the chest is submitted. The heart is within normallimits in size. Pulmonary vasculature is unremarkable. The visualized lung nelson appear to be freeof disease. The bones appear unremarkable. IMPRESSION: There is no radiographic evidence of acute cardiopulmonary disease. at 1419 Reported and signed by: Mario Mittal M.D. CC: Jaden Flores DO PAGE 1 Signed Report Name: CATARINO ALVAREZ [facility] : 1960 Age/S: 62 / F [address] [address] [place] Unit #: [id number] Loc: [place] [address] Phys: Jaden Flores DO Acct: [id number] Dis Date: Status: PRE ER PHONE #: [phone] Exam Date: 03/20/20221403 FAX #: Reason: Code Stroke EXAMS: CPT: [id number] XR CHEST 1 V [id number] Fluoro Time: DAP (Gy m2): Air Kerma (mGy): (Continued) Technologist: Reggie Webb, RT,(R),(CT) Trnscb Date/Time: 03/20/2022 (1418) [email or web address] Orig Print D/T: S: 03/20/2022 (1421) PAGE 2 Signed Report- CT ANGIO [id number] 14:19:00 [facility] 1960 Sex: F Name: CATARINO ALVAREZ [facility] : 1960 Age/S: 62 / F [address] [facility] Unit #: [id number] Loc: [place] [address] Phys: Jaden Flores DO Acct: [id number] Dis Date: Status: PRE ER PHONE #: [phone] Exam Date: 03/20/20221401 FAX #: Reason: left sided weakness EXAMS: CPT: [id number] CT ANGIO NECK [address]481 EXAM: - CT ANGIO HEAD, - CT ANGIO NECK INDICATION: left sided weakness TECHNIQUE: Axial CT images were obtained from the aortic arch to the vertex after intravenous contrast utilizing CTA protocol. Maximum intensity projection images were created from the data set. Location:T18 One or more of the following dose reduction techniques were used: Automated exposure control, adjustment of the mA and/or kV according to patient size, and/or iterative reconstruction. FINDINGS: For the purpose of this dictation, hemodynamically significant stenosis is characterized as greater than 50%. Degree of stenosis of the internal carotid arteries as per the NASCET criteria. CTA head: Internal carotid arteries: Right: No hemodynamically significant narrowing, or aneurysm seen. Left: No hemodynamically significant narrowing, or aneurysm seen. Middle cerebral arteries: Right: No hemodynamically significant narrowing, or aneurysm seen. Left: No hemodynamically significant narrowing, or aneurysm seen. Anterior cerebral arteries: Right: No hemodynamically significant narrowing, or aneurysm seen. Left: No hemodynamically significant narrowing, or aneurysm seen. Posterior cerebral arteries: Right: No hemodynamically significant narrowing, or aneurysm seen. Left: No hemodynamically significant narrowing, or aneurysm seen. Vertebral arteries: Right: No hemodynamically significant narrowing, or aneurysm seen. Left: No hemodynamically significant narrowing, or aneurysm seen. Basilar artery: No hemodynamically significant narrowing, or aneurysm seen. CT head : No gross CT evidence of acute territorial infarct or intracranial hemorrhage is appreciated. No mass effect, midline shift or hydrocephalus seen. Please refer to the previous unenhanced CT head report for additional details. CTA neck: Brachiocephalic artery: No hemodynamically significant narrowing, or aneurysm seen. PAGE 1 Signed Report (CONTINUED) Name: CATARINO ALVAREZ [facility] : 1960 Age/S: 62 / F [address] [address] [place] Unit #: [id number] Loc: [place] [address] Phys: Jaden Flores DO Acct: [id number] Dis Date: Status: PRE ER PHONE #: [phone] Exam Date: 03/20/2022 1402 FAX #: Reason: left sided weakness EXAMS: CPT: [id number] CTANGIO [id number] [id number] (Continued) Subclavian arteries: Right: No hemodynamically significant narrowing, or aneurysm seen. Left: No hemodynamically significant narrowing, or aneurysm seen. Common carotid arteries: Right: No hemodynamically significant narrowing, or aneurysm seen. Left: No hemodynamically significant narrowing, or aneurysm seen. Internal carotid arteries: Right: No hemodynamically significant narrowing, or aneurysm seen. Left: No hemodynamically significant narrowing, or aneurysm seen. Vertebral arteries: Right: No hemodynamically significant narrowing, or aneurysm seen. Left: No hemodynamically significant narrowing, or aneurysm seen. CT neck: No gross abnormality appreciated. Visualized chest: No significant abnormality appreciated within the visualized chest. Osseous structures: No acute or destructive osseous process is seen. IMPRESSION: No evidence of hemodynamically significant narrowing noted involving the major arteries of the anterior and posterior circulation. at 1419 Reported and signed by: Yaron Araujo M.D. CC: Jaden Flores DO Technologist:Reggie Webb, RT,(R),(CT) CTDI: DLP: Trnscb Date/Time: 03/20/2022 (1418) [email or web address] Orig Print D/T: S: 03/20/2022 (1421) PAGE 2 Signed Report- CT ANGIO [id number] 14:19:[facility] 1960 Sex: F Name: CATARINO ALVAREZ [facility] : 1960 Age/S: 62 / F [id number] [address] [place] Unit #: [id number] Loc: [place] [address] Phys: Jaden Flores DO Acct: [id number] Dis Date: Status: PRE ER PHONE #: [phone] Exam Date: 03/20/2022 1402 FAX #: Reason: left sided weakness EXAMS: CPT: [id number] CT ANGIO HEAD [address]6721 EXAM: - CT ANGIO HEAD, - CT ANGIO NECK INDICATION: left sided weakness TECHNIQUE: Axial CT images were obtained from the aortic arch to the vertex after intravenous contrast utilizing CTA protocol. Maximum intensity projection images were created from the data set. Location:T18 One or more of the following dose reduction techniques were used: Automated exposure control, adjustment of the mA and/or kV according to patient size, and/or iterative reconstruction. FINDINGS: For the purpose of this dictation, hemodynamically significant stenosis is characterized as greater than 50%. Degree of stenosis of the internal carotid arteries as per the NASCET criteria. CTA head: Internal carotid arteries: Right: No hemodynamically significant narrowing, or aneurysm seen. Left: No hemodynamically significant narrowing, or aneurysm seen. Middle cerebral arteries: Right: No hemodynamically significantnarrowing, or aneurysm seen. Left: No hemodynamically significant narrowing, or aneurysm seen. Anterior cerebral arteries: Right: No hemodynamically significant narrowing, or aneurysm seen. Left: No hemodynamically significant narrowing, or aneurysm seen. Posterior cerebral arteries: Right: No hemodynamically significant narrowing, or aneurysm seen. Left: No hemodynamically significant narrowing, or aneurysm seen. Vertebral arteries: Right: No hemodynamically significant narrowing, or aneurysm seen.Left: No hemodynamically significant narrowing, or aneurysm seen. Basilar artery: No hemodynamicallysignificant narrowing, or aneurysm seen. CT head : No gross CT evidence of acute territorial infarct or intracranial hemorrhage is appreciated. No mass effect, midline shift or hydrocephalus seen. Please refer to the previous unenhanced CT head report for additional details. CTA neck: Brachiocephalicartery: No hemodynamically significant narrowing, or aneurysm seen. PAGE 1 Signed Report (CONTINUED)Name: CATARINO ALVAREZ [facility] Kayy : 1960 Age/S: 62 / F [id number] [address] [place] Unit #: [id number] Loc: [place] [address] Phys: Jaden Flores DO Acct: [id number] Dis Date: Status: PRE ER PHONE #: [phone] Exam Date: 03/20/2022 1402 FAX #: Reason: left sided weakness EXAMS: CPT: [id number] CT ANGIO HEAD 92574 (Continued) Subclavian arteries: Right: No hemodynamically significant narrowing, or aneurysm seen. Left: No hemodynamically significant narrowing, or aneurysm seen. Common carotid arterie s: Right: No hemodynamically significant narrowing, or aneurysm seen. Left: No hemodynamically significant narrowing, or aneurysm seen. Internal carotid arteries: Right: No hemodynamically significant narrowing, or aneurysm seen. Left: No hemodynamically significant narrowing, or aneurysm seen. Vertebral arteries: Right: No hemodynamically significant narrowing, or aneurysm seen. Left: No hemodynamically significant narrowing, or aneurysm seen. CT neck: No gross abnormality appreciated. Visualized chest: No significant abnormality appreciated within the visualized chest. Osseous structures: No acute or destructive osseous process is seen. IMPRESSION: No evidence of hemodynamically significant narrowing noted involving the major arteries of the anterior and posterior circulation. at 1419 Reported and signed by: Yaron Araujo M.D. CC: Jaden Flores DO Technologist:Reggie Webb RT,(R),(CT) CTDI: DLP: Trnscb Date/Time: 03/20/2022 (1418) t.[email or web address].AH26 Orig Print D/T: S: 03/20/2022 (1421) PAGE 2 Signed Report- CT HEAD/BRAIN W/O [id number] 13:58:00 [facility] 1960 Sex: F Name: CATARINO ALVAREZ [facility] : 1960 Age/S: 62 / F [address] [address] [place] Unit #: [id number] Loc: [place] [address] Phys: Jdaen Flores DO Acct: [id number] Dis Date: Status: PRE ER PHONE #: [phone] Exam Date: 03/20/2022 2860 FAX #: Reason: left sided weakness EXAMS: CPT: [id number] CT HEAD/BRAIN W/O CONT 91708 CT head History: left sided weakness Comparison: None at this time Location: [id number]: Noncontrast CT scan of the head was performed. One or more of the following radiation dose reduction techniques was used: automated exposure control, adjustment of mA and/or KV according to p atient size, and/or utilization of iterative reconstruction technique. Quality of Exam: Acceptable. The ventricles, sulci and cisterns are within normal limits in size for this age patient. There is no convincing evidence of intracranial hemorrhage or mass effect. There is no midline shift. The visualized paranasal sinuses are unremarkable. The nurse practitioner in the emergency room was notified of the findings by telephone at 1:55 PM. IMPRESSION: There is no imaging evidence of acute intracranial pathology. FOR INTERNAL CODING PURPOSES ONLY RESULT CODE: CVRMD at 1951 Reported and signed by: Mario Mittal M.D. PAGE 1 Signed Report (CONTINUED) Name: CATARINO ALVAREZ [facility] : 1960 Age/S: 62 / F [address] [address] [place] Unit #: [id number] Loc: [place] [address] Phys: Jaden Flores DO Acct: [id number] Dis Date: Status: PRE ER PHONE #: [phone] Exam Date: 03/20/2022 1353 FAX #: Reason: left sided weakness EXAMS: CPT: [id number] CT HEAD/BRAIN W/O CONT 14636 (Continued) CC:Jaden Flores DO Technologist:Reggie Webb, RT,(R),(CT); ... CTDI: DLP: Trnscb Date/Time: 03/20/2022 (7134) t.SDR.PMT Orig Print D/T: S: 03/20/2022 (1394) PAGE 2 Signed ReportPOC glucose 2021-10-28 21:31:00 Test Item Value Reference Range Interpretation Comments POC glucose (test code 139 mg/dL 65-99 H Opera tor Name: = 01316-0) Nilda Goldsmith ID : [id number] able: RN Notified Lab Interpretation Abnormal (test code = 44142-5) [facility] (w Contrast, Strain and 3D if needed)2021-10-24 17:14:37 Test Item Value Reference Range Interpretation Comments AoV Area, Vmax (test 2.18 cm2 code = 5359606918) AoV Area, VTI (test 2.16 cm2 code = 2519436262) AoV Mean PG (test code mmHg = 6792536578) AoV Peak PG (test code mmHg = 8122135270) AoV Vmax (test code = 1.60 m/s 7091006307) AoV VTI (test code = 0.26 m 4349602154) IVS,d (test code = 1.17 cm 0.6-0.9 A 7342933390) IVS/LVPW,2D (test code = 3297210470) Left Atrium Dimension 3.10 cm Anterior (test code = 3343068692) LV,d (test code = 3.59 cm 0148960443) LV EF,2D (test code = 67.03 % 6603509689) LV,s (test code = 2.48 cm 5445625745) LVOT area (test code = 2.83 cm2 4212781019) LVOT Diam,S (test code 1.90 cm = 0347756039) LVOT Vmax (test code = 1.22 m/s 8215532972) LVOT VTI (test code = 0.20 m 3705220366) LVPWD,d (test code = 0.89 cm 0.6-0.9 7099487579) PV Pk Grad (test code = mmHg 6604964159) PV VMAX (test code = 1.25 m/s 6340836914) RVOT Vmax (test code = 1.26 m/s 5769378318) RVSP (TR) (test code = mmHg 2813493008) TR Vpeak (test code = 1.85 mm/s 7858522841) MV E A ratio (test code = 4071214973) RA pressure (test code mmHg = 2930834669) TR pk grad (test code = mmHg 9031985142) MR Vmax (test code = 2.65 m/s 3199289133) MR peak grad (test code mmHg = 5775192600) E wave decelartion time msec (test code = 8053039959) MV Peak A Balwinder (test 0.83 m/s code = 0227222739) MV valve area p 1/2 3.31 cm2 method (test code = 3111985527) MV Peak E Balwinder (test 0.55 m/s code = 8513338159) MV stenosis pressure 66.41 ms 1/2 time (test code = 8652864729) LVOT stroke volume 0.57 ml (test code = 5791372930) AV LVOT peak gradient mmHg (test code = 4771659597) RVSP (test code = mmHg 9217573008) Ao Root,d,2D (test code 3.00 cm = 3503359281) LV SYS VOL (test code = 21.88 ml 14-42 9018975087) LV MARKHAM VOL (test code 54.07 ml 46-106 = 6901079347) LV SV Teich 2D (test 32.19 ml code = 3617893286) LV Vol s Teich PSAX 21.88 ml (test code = 1189784147) RVOT pk grad (test code mmHg = 7106204143) AoV Vmn (test code = 1.11 m/s 5522761387) LV FS Teich 2D (test code = 3110450731) MV AE ratio (test code = 6134042603) LV FS Cube 2D (test code = 2282660186) LVOT Vmn (test code = 2029391915) Aov area Vmn (test code 2.27 cm2 = 9994622414) LVOT mean grad (test mmHg code = 7556884195) MAX Pred HR (test code = 7641496602) 85 of MPHR (test code = 9535212436) Ao d LA s ratio (test code = 2072160249) Calc MPHR (test code = bpm 1201509707) LV SV Cube 2D (test 31.02 ml code = 2544272893) LV vol d cube 2D (test 46.27 ml code = 8168838572) LV vol s cube 2D (test 15.25 ml code = 1391638626) MV Decel slope (test 2.40 m/s2 code = 7772945194) Pred Exer Dur R1 (test code = 2215456571) Pred METS R1 (test code = 0441260728) E mary sept (test code = 4605496849) E prime lat (test code = 6300572645) Velocity Ratio (V1/V2) 0.76 m/s (test code = 4689) EF (test code = 60 % 2200215744) E/A ratio (test code = 7581949218) LVOT VTI (CM) (test 20.00 cm code = 1735897643) DOUG (test code = DOUG) Normal left ventricular size and function with an EF~ 55% to 60%.Normal right ventricular size and function.Structurally normal cardiac valves.Normal atria.Normal pericardium with no effusion.Grade 1 diastolic dysfunction. Left VentricleLeft ventricle size is normal. Normal systolic function with a visually estimated EF of 55 - 60%. Grade I (impaired relaxation) diastolic dysfunction.Right VentricleRight ventricle size is normal. Normal systolic function.Left AtriumLeft atrium size is normal.Right AtriumRight atrium size is normal.Mitral ValveValve structure is normal. Trace valvular regurgitation. No stenosis.Tricuspid ValveValve structure is normal. Trace valvular regurgitation. No stenosis.Aortic ValveValve structure is normal. No significant valvular regurgitation. No stenosis.Pulmonic ValveValve structure is normal. Trace valvular regurgitation. No stenosis.PericardiumNo significant pericardial effusion.Study DetailsStudy quality was good. A complete 2D, color flow Doppler and spectral Doppler echocardiogram was performed.The apical, parasternal, subcostal and suprasternal views were obtained. Lab Interpretation Abnormal (test code = 69942-0) [facility] ttcbwjn[facility]oj9441-96-42 16:28:45 Test Item Value Reference Range Interpretation Comments MAX Pred HR (test code = 1899203312) 85 of MPHR (test code = 3389270185) Calc MPHR (test bpm code = 9696589566) Pred Exer Dur R1 (test code = 3195025040) Pred METS R1 (test code = 3584345014) DOUG (test code = DOUG) Left Ventricle: Normal wall motion. Normal systolic function with a visually estimated EF of 55 - 60%. No left atrial appendage clot Left VentricleLeft ventricle size is normal. Normal wall motion. Normal systolic function with a visually estimated EF of 55 - 60%. Normal diastolic function.Right VentricleRight ventricle size is normal. Normal systolic function.Left AtriumLeft atrium size is normal. No ASD. No PFO present. No thrombus seen in the appendage.Right AtriumRight atrium size is normal.Mitral ValveValve structure is normal. No restricted motion. Trace valvular regurgitation. No stenosis.Tricuspid ValveValve structure is normal. No restricted motion. Trace valvular regurgitation. No stenosis.Aortic ValveValve structure is normal. No restricted motion. No significant valvular regurgitation. No stenosis.Pulmonic ValveValve structure is normal. No significant valvular regurgitation. No stenosis.PericardiumNo significant pericardial effusion.AortaNormal sized annulus.Study DetailsA complete Dexter was performed using complete 2D and color flow Doppler.A limited DEXTER was performed using color flow Doppler. Saline (bubble) contrast was used during the study. The probe was inserted by the football coach. There was moderate probe insertion difficulty. Moderate sedation was given using fentanyl and midazolam during the study. The patient tolerated the procedure well and recovered without any complications. [facility] 12 [id number] 01:24:04 Test Item Value Reference Range Interpretation Comments Ventricular rate (test code = 253) Atrial rate (test code = 255) OK interval (test code = 266) QRSD interval (test code = 260) QT interval (test code = 264) QTC interval (test code = 265) P axis 1 (test code = 267) QRS axis 1 (test code = 268) T wave axis (test code = 270) EKG impression (test Normal sinus rhythm-Left code = 273) axis deviation-Right bundle branch block-Abnormal ECG-In automated comparison with ECG of 22-OCT-2021 17:11,-QRS axis shifted left- [facility] InyqbaawMIHZ-GuK-2 (COVID-19) RNA [Presence] in Respiratory specimen by BENNIE with probe owvtqljsz7601-10-47 03:08:11 Test Item Value Reference Range Interpretation Comments SARS-CoV-2 (COVID-19) RNA Not detected [Presence] in Respiratory specimen by BENNIE with probe detection (test code = 72676-5) Whether patient is employed in a Unknown healthcare setting (test code = 82235-4) Whether the patient has symptoms Unknown related to condition of interest (test code = 36223-7) Whether the patient was Unknown hospitalized for condition of interest (test code = 94272-4) Whether the patient was admitted Unknown to intensive care unit (ICU) for condition of interest (test code = 90150-1) Whether patient resides in a Unknown congregate care setting (test code = 75240-2) status (test code = Unknown 79639-4) Date and time of symptom onset Unknown (test code = 51576-7) [facility] ED Preliminary Interpretation - Not an Iigxd8504-36-76 23:38:24 Test Item Value Reference Range Interpretation Comments DOUG (test code = DOUG) Magnus Parson III, MD 10/23/2021 8:51 [facility] Preliminary Interpretation - Not an OrderPerformed by: Magnus Parson III, MDAuthorized by: Magnus Parson III, MD ECG reviewed by ED Physician in the absence of a football coach: yes Interpretation: Interpretation: abnormal Quality: Tracing quality: Limited by artifactRate: ECG rate: 72 ECG rate assessment: normal Rhythm: Rhythm: sinus rhythm Ectopy: Ectopy: none QRS: QRS axis: Normal QRS intervals: WideConduction: Conduction: abnormal Abnormal conduction: complete RBBB ST segments: ST segments: Non-specificT waves: T waves: non-specific Lab Interpretation Abnormal (test code = 17270-2) [facility] (COVID-19) RNA [Presence] in Respiratory specimen by BENNIE with probe [id number] 23:32:36 Test Item Value Reference Range Interpretation Comments SARS-CoV-2 (COVID-19) RNA Not detected Not-Detected [Presence] in Respiratory specimen by BENNIE with probe detection (test code = 62799-5) [facility]-CoV-[facility] (COVID-19) RNA [Presence] in Respiratory specimen by BENNIE with probe dplnecdpc3703-74-19 22:54:03 Test Item Value Reference Range Interpretation Comments SARS-CoV-2 (COVID-19) RNA Not detected Not-Detected [Presence] in Respiratory specimen by BENNIE with probe detection (test code = 27457-4) [facility]-CoV-2 (COVID-19) RNA [Presence] in Respiratory specimen by BENNIE with probe tgxwanrmw2300-40-76 12:55:51 Test Item Value Reference Range Interpretation Comments SARS-CoV-2 (COVID-19) RNA Not detected Not-Detected [Presence] in Respiratory specimen by BENNIE with probe detection (test code = 33631-2) [facility]-CoV-2 (COVID-19) RNA [Presence] in Respiratory specimen by BENNIE with probe pfudowuar2384-52-29 12:51:32 Test Item Value Reference Range Interpretation Comments SARS-CoV-2 (COVID-19) RNA Not detected Not-Detected [Presence] in Respiratory specimen by BENNIE with probe detection (test code = 60829-9) [facility] coronavirus 2 RNA [Presence] in Respiratory specimen by BENNIE with probe qakoilczg5178-74-81 21:12:00 Test Item Value Reference Range Interpretation Comments SARS coronavirus 2 RNA Not detected Not-Detected [Presence] in Respiratory specimen by BENNIE with probe detection (test code = 11848-4) [facility] coronavirus 2 RNA [Presence] in Respiratory specimen by BENNIE with probe uwolmyrov8177-73-67 03:36:36 Test Item Value Reference Range Interpretation Comments SARS coronavirus 2 RNA [Presence] in Detected Not-Detected Respiratory specimen by BENNIE with probe detection (test code = 28380-9) [facility]2020-06-17 08:20:00 Test Item Value Reference Range Interpretation Comments WBC (test code = WBC) 18.8 3.7-10.4 [facility]TlftodcQKQZVJCZDQ2373-29-92 08:20:00 Test Item Value Reference Range Interpretation Comments RBC (test code = RBC) 3.34 4.20-5.40 [facility] CenterXxxskwmYYTSCCJTCV9632-15-27 08:20:00 Test Item Value Reference Range Interpretation Comments Hgb (test code = Hgb) 10.9 12.0-16.0 [place] [address]-06-17 08:20:00 Test Item Value Reference Range Interpretation Comments Hct (test code = Hct) 31.7 36.0-48.0 [place] [address]-06-17 08:20:00 Test Item Value Reference Range Interpretation Comments MCV (test code = MCV) 94.9 80.0-98.0 [facility] CenterZmgxvesGZSNOUGUUG6131-45-74 08:20:00 Test Item Value Reference Range Interpretation Comments MCH (test code = MCH) 32.7 pg 27.0-31.0 [facility] CenterPxykmhiDAHMQYJQNR5117-03-06 08:20:00 Test Item Value Reference Range Interpretation Comments MCHC (test code = MCHC) 34.5 32.0-36.0 [place] 789280-06-17 08:20:00 Test Item Value Reference Range Interpretation Comments RDW (test code = RDW) 14.3 11.5-14.5 [place] 789280-06-17 08:20:00 Test Item Value Reference Range Interpretation Comments Platelet (test code = Platelet) 321 133-450 [facility] CenterCqciftlXNPAKXQPGS4826-88-77 08:20:00 Test Item Value Reference Range Interpretation Comments MPV (test code = MPV) 7.6 7.4-10.4 [place] [address]-06-17 08:20:00 Test Item Value Reference Range Interpretation Comments Neutrophils # (test code = Neutrophils 17.3 1.5-8.1 #) [place] [address]89280-06-17 08:20:00 Test Item Value Reference Range Interpretation Comments Lymphocytes # (test code = Lymphocytes 0.6 1.0-5.5 #) [facility] CenterVnkvcdaDCKZKMOCGN3371-04-38 08:20:00 Test Item Value Reference Range Interpretation Comments Monocytes # (test code 0.8 See_Comment [Aut omated message] The = Monocytes #) system which generated this result tra nsmitted reference range : <=0.8. The reference r chase was not used to int erpret this result as normal/abnormal . [place] 789280-06-17 08:20:00 Test Item Value Reference Range Interpretation Comments Eosinophils # (test code 0.2 See_Comment [A utomated message] The = Eosinophils #) system whic h generated this result tra nsmitted reference range : <=0.5. The reference r chase was not used to int erpret this result as normal/abnormal . [facility] CenterAhjmzdmULMVTYPWDF9202-25-62 08:20:00 Test Item Value Reference Range Interpretation Comments Segs (test code = Segs) 85.0 45.0-75.0 [place] [address]89280-06-17 08:20:00 Test Item Value Reference Range Interpretation Comments Bands (test code = 7.0 See_Comment [Automat ed message] The Bands) system which ge nerated this result transmit bright reference range : <=11.0. The reference r chase was not used to interpr et this result as candice l/abnormal. [facility] CenterGlxxdfcJOZZLPXJSH1156-13-35 08:20:00 Test Item Value Reference Range Interpretation Comments Lymphocytes (test code = Lymphocytes) 3.0 20.0-40.0 [facility] CenterEagfevlAXUTKIHLNO4624-94-50 08:20:00 Test Item Value Reference Range Interpretation Comments Monocytes (test code = Monocytes) 4.0 2.0-12.0 [facility] CenterSkodbmlTLORGKACZU3787-32-33 08:20:00 Test Item Value Reference Range Interpretation Comments Eosinophils (test code = 1.0 See_Comment [A utomated message] The Eosinophils) system which ge nerated this result tra nsmitted reference range : <=4.0. The reference r chase was not used to int erpret this result as normal/abnormal . [facility] CenterNlaqgnyMTWLEDHGPU7631-29-14 08:20:00 Test Item Value Reference Range Interpretation Comments Atypical Lymphs (test code = Atypical 0.0 Lymphs) [facility] CenterUbxgyonEAOOHUGYWX1328-90-88 08:20:00 Test Item Value Reference Range Interpretation Comments RBC Morph (test code = Normal (12/13/19 3:20 RBC Morph) AM) [facility] CenterOmmqatmWDGNHGJSKF1396-98-30 08:20:00 Test Item Value Reference Range Interpretation Comments Large Plt (test code = Large Plt) Slight [facility] CenterMxmhmhjGEYEYPEKMT5794-23-78 08:20:00 Test Item Value Reference Range Interpretation Comments WBC (test code = WBC) 18.8 3.7-10.4 [place] 789280-06-17 08:20:00 Test Item Value Reference Range Interpretation Comments RBC (test code = RBC) 3.34 4.20-5.40 [place] 789280-06-17 08:20:00 Test Item Value Reference Range Interpretation Comments Hgb (test code = Hgb) 10.9 12.0-16.0 [facility] CenterCbhfthpVYNJOXZBTV0054-46-99 08:20:00 Test Item Value Reference Range Interpretation Comments Hct (test code = Hct) 31.7 36.0-48.0 [place] [address]-06-17 08:20:00 Test Item Value Reference Range Interpretation Comments MCV (test code = MCV) 94.9 80.0-98.0 [place] [address]-06-17 08:20:00 Test Item Value Reference Range Interpretation Comments MCH (test code = MCH) 32.7 pg 27.0-31.0 [place] [address]-06-17 08:20:00 Test Item Value Reference Range Interpretation Comments MCHC (test code = MCHC) 34.5 32.0-36.0 [place] [address]-06-17 08:20:00 Test Item Value Reference Range Interpretation Comments RDW (test code = RDW) 14.3 11.5-14.5 [place] [address]-06-17 08:20:00 Test Item Value Reference Range Interpretation Comments Platelet (test code = Platelet) 321 133-450 [place] 789280-06-17 08:20:00 Test Item Value Reference Range Interpretation Comments MPV (test code = MPV) 7.6 7.4-10.4 [place] [address]-06-17 08:20:00 Test Item Value Reference Range Interpretation Comments Neutrophils # (test code = Neutrophils 17.3 1.5-8.1 #) [place] [address]-06-17 08:20:00 Test Item Value Reference Range Interpretation Comments Lymphocytes # (test code = Lymphocytes 0.6 1.0-5.5 #) [facility] CenterZuzojzdOZGZKJQJEG7630-85-19 08:20:00 Test Item Value Reference Range Interpretation Comments Monocytes # (test code 0.8 See_Comment [Aut omated message] The = Monocytes #) system which generated this result tra nsmitted reference range : <=0.8. The reference r chase was not used to int erpret this result as normal/abnormal . [place] [address]-06-17 08:20:00 Test Item Value Reference Range Interpretation Comments Eosinophils # (test code 0.2 See_Comment [A utomated message] The = Eosinophils #) system whic h generated this result tra nsmitted reference range : <=0.5. The reference r chase was not used to int erpret this result as normal/abnormal . [place] [address]-06-17 08:20:00 Test Item Value Reference Range Interpretation Comments Segs (test code = Segs) 85.0 45.0-75.0 [place] 789280-06-17 08:20:00 Test Item Value Reference Range Interpretation Comments Bands (test code = 7.0 See_Comment [Automat ed message] The Bands) system which ge nerated this result transmit bright reference range : <=11.0. The reference r chase was not used to interpr et this result as candice l/abnormal. [place] 789280-06-17 08:20:00 Test Item Value Reference Range Interpretation Comments Lymphocytes (test code = Lymphocytes) 3.0 20.0-40.0 [place] [address]-06-17 08:20:00 Test Item Value Reference Range Interpretation Comments Monocytes (test code = Monocytes) 4.0 2.0-12.0 [place] [address]-06-17 08:20:00 Test Item Value Reference Range Interpretation Comments Eosinophils (test code = 1.0 See_Comment [A utomated message] The Eosinophils) system which ge nerated this result tra nsmitted reference range : <=4.0. The reference r chase was not used to int erpret this result as normal/abnormal . [facility]TukjuyvCCYBFMZJQU6646-62-17 08:20:00 Test Item Value Reference Range Interpretation Comments Atypical Lymphs (test code = Atypical 0.0 Lymphs) [place] [address]-06-17 08:20:00 Test Item Value Reference Range Interpretation Comments RBC Morph (test code = Normal (12/13/19 3:20 RBC Morph) AM) [place] [address]-06-17 08:20:00 Test Item Value Reference Range Interpretation Comments Large Plt (test code = Large Plt) Slight [place] [address]-06-17 08:20:00 Test Item Value Reference Range Interpretation Comments WBC (test code = WBC) 18.8 3.7-10.4 [place] [address]-06-17 08:20:00 Test Item Value Reference Range Interpretation Comments RBC (test code = RBC) 3.34 4.20-5.40 [place] [address]-06-17 08:20:00 Test Item Value Reference Range Interpretation Comments Hgb (test code = Hgb) 10.9 12.0-16.0 [place]89280-06-17 08:20:00 Test Item Value Reference Range Interpretation Comments Hct (test code = Hct) 31.7 36.0-48.0 [place]89280-06-17 08:20:00 Test Item Value Reference Range Interpretation Comments MCV (test code = MCV) 94.9 80.0-98.0 [place] [address]-06-17 08:20:00 Test Item Value Reference Range Interpretation Comments MCH (test code = MCH) 32.7 pg 27.0-31.0 [place] [address]-06-17 08:20:00 Test Item Value Reference Range Interpretation Comments MCHC (test code = MCHC) 34.5 32.0-36.0 [place] [address]-06-17 08:20:00 Test Item Value Reference Range Interpretation Comments RDW (test code = RDW) 14.3 11.5-14.5 [place] [address]-06-17 08:20:00 Test Item Value Reference Range Interpretation Comments Platelet (test code = Platelet) 321 133-450 [facility]KbqadfmTCNJOUZRHD1397-16-11 08:20:00 Test Item Value Reference Range Interpretation Comments MPV (test code = MPV) 7.6 7.4-10.4 [place] [address]-06-17 08:20:00 Test Item Value Reference Range Interpretation Comments Neutrophils # (test code = Neutrophils 17.3 1.5-8.1 #) [facility] CenterVhhvzzpITNSTJVHJM3209-03-56 08:20:00 Test Item Value Reference Range Interpretation Comments Lymphocytes # (test code = Lymphocytes 0.6 1.0-5.5 #) [place] [address]-06-17 08:20:00 Test Item Value Reference Range Interpretation Comments Monocytes # (test code 0.8 See_Comment [Aut omated message] The = Monocytes #) system which generated this result tra nsmitted reference range : <=0.8. The reference r chase was not used to int erpret this result as normal/abnormal . [place]280-06-17 08:20:00 Test Item Value Reference Range Interpretation Comments Eosinophils # (test code 0.2 See_Comment [A utomated message] The = Eosinophils #) system whic h generated this result tra nsmitted reference range : <=0.5. The reference r chase was not used to int erpret this result as normal/abnormal . [facility] CenterJstklcyHZGGZEAVJA5777-35-10 08:20:00 Test Item Value Reference Range Interpretation Comments Segs (test code = Segs) 85.0 45.0-75.0 [place]280-06-17 08:20:00 Test Item Value Reference Range Interpretation Comments Bands (test code = 7.0 See_Comment [Automat ed message] The Bands) system which ge nerated this result transmit bright reference range : <=11.0. The reference r chase was not used to interpr et this result as candice l/abnormal. [facility] CenterRtohonhHRKKDAYYHN0311-81-27 08:20:00 Test Item Value Reference Range Interpretation Comments Lymphocytes (test code = Lymphocytes) 3.0 20.0-40.0 [place] [address]-06-17 08:20:00 Test Item Value Reference Range Interpretation Comments Monocytes (test code = Monocytes) 4.0 2.0-12.0 [place] [address]-06-17 08:20:00 Test Item Value Reference Range Interpretation Comments Eosinophils (test code = 1.0 See_Comment [A utomated message] The Eosinophils) system which ge nerated this result tra nsmitted reference range : <=4.0. The reference r chase was not used to int erpret this result as normal/abnormal . [facility] CenterNqaouuhMMBUUJTCGZ2444-61-86 08:20:00 Test Item Value Reference Range Interpretation Comments Atypical Lymphs (test code = Atypical 0.0 Lymphs) [place]280-06-17 08:20:00 Test Item Value Reference Range Interpretation Comments RBC Morph (test code = Normal (12/13/19 3:20 RBC Morph) AM) [place] [address]-06-17 08:20:00 Test Item Value Reference Range Interpretation Comments Large Plt (test code = Large Plt) Slight [place] 789280-06-17 08:20:00 Test Item Value Reference Range Interpretation Comments WBC (test code = WBC) 18.8 3.7-10.4 [place] 7[address]280-06-17 08:20:00 Test Item Value Reference Range Interpretation Comments RBC (test code = RBC) 3.34 4.20-5.40 [place] [address]-06-17 08:20:00 Test Item Value Reference Range Interpretation Comments Hgb (test code = Hgb) 10.9 12.0-16.0 [place] [address]-06-17 08:20:00 Test Item Value Reference Range Interpretation Comments Hct (test code = Hct) 31.7 36.0-48.0 [place] [address]-06-17 08:20:00 Test Item Value Reference Range Interpretation Comments MCV (test code = MCV) 94.9 80.0-98.0 [place] [address]-06-17 08:20:00 Test Item Value Reference Range Interpretation Comments MCH (test code = MCH) 32.7 pg 27.0-31.0 [place] [address]-06-17 08:20:00 Test Item Value Reference Range Interpretation Comments MCHC (test code = MCHC) 34.5 32.0-36.0 [place] [address]-06-17 08:20:00 Test Item Value Reference Range Interpretation Comments RDW (test code = RDW) 14.3 11.5-14.5 [place] [address]-06-17 08:20:00 Test Item Value Reference Range Interpretation Comments Platelet (test code = Platelet) 321 133-450 [place] [address]-06-17 08:20:00 Test Item Value Reference Range Interpretation Comments MPV (test code = MPV) 7.6 7.4-10.4 [place] [address]-06-17 08:20:00 Test Item Value Reference Range Interpretation Comments Neutrophils # (test code = Neutrophils 17.3 1.5-8.1 #) [place] [address]-06-17 08:20:00 Test Item Value Reference Range Interpretation Comments Lymphocytes # (test code = Lymphocytes 0.6 1.0-5.5 #) [place] [address]-06-17 08:20:00 Test Item Value Reference Range Interpretation Comments Monocytes # (test code 0.8 See_Comment [Aut omated message] The = Monocytes #) system which generated this result tra nsmitted reference range : <=0.8. The reference r chase was not used to int erpret this result as normal/abnormal . [facility] CenterQqapujfTCNIAVGWUK9219-85-41 08:20:00 Test Item Value Reference Range Interpretation Comments Eosinophils # (test code 0.2 See_Comment [A utomated message] The = Eosinophils #) system whic h generated this result tra nsmitted reference range : <=0.5. The reference r chase was not used to int erpret this result as normal/abnormal . [facility] CenterUkzrzrmDXXXQULOSN6185-56-26 08:20:00 Test Item Value Reference Range Interpretation Comments Segs (test code = Segs) 85.0 45.0-75.0 [facility] CenterYbcfsfgPACJTRLJNZ4447-79-46 08:20:00 Test Item Value Reference Range Interpretation Comments Bands (test code = 7.0 See_Comment [Automat ed message] The Bands) system which ge nerated this result transmit bright reference range : <=11.0. The reference r chase was not used to interpr et this result as candice l/abnormal. [facility] CenterWmeypuvWXNGEULVOY7682-37-21 08:20:00 Test Item Value Reference Range Interpretation Comments Lymphocytes (test code = Lymphocytes) 3.0 20.0-40.0 [facility] CenterUcqqlaxUSACWGNKPH5929-13-09 08:20:00 Test Item Value Reference Range Interpretation Comments Monocytes (test code = Monocytes) 4.0 2.0-12.0 [facility] CenterBqrewwoIOCPETQVPY9105-53-64 08:20:00 Test Item Value Reference Range Interpretation Comments Eosinophils (test code = 1.0 See_Comment [A utomated message] The Eosinophils) system which ge nerated this result tra nsmitted reference range : <=4.0. The reference r chase was not used to int erpret this result as normal/abnormal . [facility] CenterEigbbwyYZWFUKIZQS5386-08-00 08:20:00 Test Item Value Reference Range Interpretation Comments Atypical Lymphs (test code = Atypical 0.0 Lymphs) [place] [address]280-06-17 08:20:00 Test Item Value Reference Range Interpretation Comments RBC Morph (test code = Normal (12/13/19 3:20 RBC Morph) AM) [facility] CenterAjjrhpcWVAGYNFIXG1824-09-62 08:20:00 Test Item Value Reference Range Interpretation Comments Large Plt (test code = Large Plt) Slight [facility] CenterQqaaitvOAFAGDRGDI9324-78-46 08:20:00 Test Item Value Reference Range Interpretation Comments WBC (test code = WBC) 18.8 3.7-10.4 [facility] CenterIvuasfjFPHQRMOFEA2505-32-01 08:20:00 Test Item Value Reference Range Interpretation Comments RBC (test code = RBC) 3.34 4.20-5.40 [facility] CenterHwlfeqhUXULEFUDNY5896-94-10 08:20:00 Test Item Value Reference Range Interpretation Comments Hgb (test code = Hgb) 10.9 12.0-16.0 [facility] CenterDrxdsalHMQBKQNOBG5208-21-19 08:20:00 Test Item Value Reference Range Interpretation Comments Hct (test code = Hct) 31.7 36.0-48.0 [facility] CenterLnwvdsgHQZRKQXBAZ3188-62-06 08:20:00 Test Item Value Reference Range Interpretation Comments MCV (test code = MCV) 94.9 80.0-98.0 [facility] CenterBhqvdkdEHQOIAHEML4564-71-02 08:20:00 Test Item Value Reference Range Interpretation Comments MCH (test code = MCH) 32.7 pg 27.0-31.0 [facility] CenterOdtsurkBNKRHISHRV4193-09-46 08:20:00 Test Item Value Reference Range Interpretation Comments MCHC (test code = MCHC) 34.5 32.0-36.0 [facility] CenterQuyvxpfIFMMHZKSGO1213-37-03 08:20:00 Test Item Value Reference Range Interpretation Comments RDW (test code = RDW) 14.3 11.5-14.5 [facility] CenterEplyzkoDBHYRCZTDS8536-80-27 08:20:00 Test Item Value Reference Range Interpretation Comments Platelet (test code = Platelet) 321 133-450 [facility] CenterJoseyykIPFLWLGHVV8946-45-55 08:20:00 Test Item Value Reference Range Interpretation Comments MPV (test code = MPV) 7.6 7.4-10.4 [place] [address]-06-17 08:20:00 Test Item Value Reference Range Interpretation Comments Neutrophils # (test code = Neutrophils 17.3 1.5-8.1 #) [facility] CenterMlpbkjoDWVDZBGUKW6012-27-26 08:20:00 Test Item Value Reference Range Interpretation Comments Lymphocytes # (test code = Lymphocytes 0.6 1.0-5.5 #) [facility] CenterOvmvbtsDSUXOYCMZN7261-65-95 08:20:00 Test Item Value Reference Range Interpretation Comments Monocytes # (test code 0.8 See_Comment [Aut omated message] The = Monocytes #) system which generated this result tra nsmitted reference range : <=0.8. The reference r chase was not used to int erpret this result as normal/abnormal . [facility] CenterKrddugyAOUPGARKJQ3628-14-21 08:20:00 Test Item Value Reference Range Interpretation Comments Eosinophils # (test code 0.2 See_Comment [A utomated message] The = Eosinophils #) system whic h generated this result tra nsmitted reference range : <=0.5. The reference r chase was not used to int erpret this result as normal/abnormal . [facility] CenterGokzcyzVLSETVUUTZ2699-81-09 08:20:00 Test Item Value Reference Range Interpretation Comments Segs (test code = Segs) 85.0 45.0-75.0 [place]-06-17 08:20:00 Test Item Value Reference Range Interpretation Comments Bands (test code = 7.0 See_Comment [Automat ed message] The Bands) system which ge nerated this result transmit bright reference range : <=11.0. The reference r chase was not used to interpr et this result as candice l/abnormal. [facility] CenterVmvpyuiYXXKGDJFYM7807-00-90 08:20:00 Test Item Value Reference Range Interpretation Comments Lymphocytes (test code = Lymphocytes) 3.0 20.0-40.0 [place]-06-17 08:20:00 Test Item Value Reference Range Interpretation Comments Monocytes (test code = Monocytes) 4.0 2.0-12.0 [place] [address]-06-17 08:20:00 Test Item Value Reference Range Interpretation Comments Eosinophils (test code = 1.0 See_Comment [A utomated message] The Eosinophils) system which ge nerated this result tra nsmitted reference range : <=4.0. The reference r chase was not used to int erpret this result as normal/abnormal . [facility] CenterBabfbbiCKGXDSICSA1175-51-07 08:20:00 Test Item Value Reference Range Interpretation Comments Atypical Lymphs (test code = Atypical 0.0 Lymphs) [place] [address]280-06-17 08:20:00 Test Item Value Reference Range Interpretation Comments RBC Morph (test code = Normal (12/13/19 3:20 RBC Morph) AM) [facility] CenterQncabtkYXEEVZPDXF4186-94-17 08:20:00 Test Item Value Reference Range Interpretation Comments Large Plt (test code = Large Plt) Slight [place] [address]-06-17 08:20:00 Test Item Value Reference Range Interpretation Comments WBC (test code = WBC) 18.8 3.7-10.4 [place]-06-17 08:20:00 Test Item Value Reference Range Interpretation Comments RBC (test code = RBC) 3.34 4.20-5.40 [place]280-06-17 08:20:00 Test Item Value Reference Range Interpretation Comments Hgb (test code = Hgb) 10.9 12.0-16.0 [place]280-06-17 08:20:00 Test Item Value Reference Range Interpretation Comments Hct (test code = Hct) 31.7 36.0-48.0 [place]-06-17 08:20:00 Test Item Value Reference Range Interpretation Comments MCV (test code = MCV) 94.9 80.0-98.0 [place]-06-17 08:20:00 Test Item Value Reference Range Interpretation Comments MCH (test code = MCH) 32.7 pg 27.0-31.0 [place]280-06-17 08:20:00 Test Item Value Reference Range Interpretation Comments MCHC (test code = MCHC) 34.5 32.0-36.0 [facility] CenterBisatwgUXQMDXMFZH6914-09-48 08:20:00 Test Item Value Reference Range Interpretation Comments RDW (test code = RDW) 14.3 11.5-14.5 [place]280-06-17 08:20:00 Test Item Value Reference Range Interpretation Comments Platelet (test code = Platelet) 321 133-450 [place]280-06-17 08:20:00 Test Item Value Reference Range Interpretation Comments MPV (test code = MPV) 7.6 7.4-10.4 [place]280-06-17 08:20:00 Test Item Value Reference Range Interpretation Comments Neutrophils # (test code = Neutrophils 17.3 1.5-8.1 #) [facility] CenterImffftzKRFMTUZCNS7438-27-11 08:20:00 Test Item Value Reference Range Interpretation Comments Lymphocytes # (test code = Lymphocytes 0.6 1.0-5.5 #) [facility] CenterXnzzqyoICTRRGNTCE9171-61-31 08:20:00 Test Item Value Reference Range Interpretation Comments Monocytes # (test code 0.8 See_Comment [Aut omated message] The = Monocytes #) system which generated this result tra nsmitted reference range : <=0.8. The reference r chase was not used to int erpret this result as normal/abnormal . [facility] CenterEeuajmrNEZQPXZXGP2131-10-78 08:20:00 Test Item Value Reference Range Interpretation Comments Eosinophils # (test code 0.2 See_Comment [A utomated message] The = Eosinophils #) system whic h generated this result tra nsmitted reference range : <=0.5. The reference r chase was not used to int erpret this result as normal/abnormal . [facility] CenterUojeektELLSGMRVEO0815-61-29 08:20:00 Test Item Value Reference Range Interpretation Comments Segs (test code = Segs) 85.0 45.0-75.0 [place]280-06-17 08:20:00 Test Item Value Reference Range Interpretation Comments Bands (test code = 7.0 See_Comment [Automat ed message] The Bands) system which ge nerated this result transmit bright reference range : <=11.0. The reference r chase was not used to interpr et this result as candice l/abnormal. [facility] CenterObmasahZUPKJQTCXZ6569-39-12 08:20:00 Test Item Value Reference Range Interpretation Comments Lymphocytes (test code = Lymphocytes) 3.0 20.0-40.0 [place]280-06-17 08:20:00 Test Item Value Reference Range Interpretation Comments Monocytes (test code = Monocytes) 4.0 2.0-12.0 [place] [address]-06-17 08:20:00 Test Item Value Reference Range Interpretation Comments Eosinophils (test code = 1.0 See_Comment [A utomated message] The Eosinophils) system which ge nerated this result tra nsmitted reference range : <=4.0. The reference r chase was not used to int erpret this result as normal/abnormal . [facility] CenterOyjqbnlEFHTIKOVFD7676-14-29 08:20:00 Test Item Value Reference Range Interpretation Comments Atypical Lymphs (test code = Atypical 0.0 Lymphs) [facility] CenterFpuiahyIPQFSZHTTM8014-66-59 08:20:00 Test Item Value Reference Range Interpretation Comments RBC Morph (test code = Normal (12/13/19 3:20 RBC Morph) AM) [place]-06-17 08:20:00 Test Item Value Reference Range Interpretation Comments Large Plt (test code = Large Plt) Slight [facility] CenterNnxhubyYSGJUTVCBW4115-18-96 08:20:00 Test Item Value Reference Range Interpretation Comments WBC (test code = WBC) 18.8 3.7-10.4 [facility] CenterHqadldvAJJBDPIOZT1815-20-98 08:20:00 Test Item Value Reference Range Interpretation Comments RBC (test code = RBC) 3.34 4.20-5.40 [facility] CenterGqxdgvmHWHSCTGOJM7774-33-45 08:20:00 Test Item Value Reference Range Interpretation Comments Hgb (test code = Hgb) 10.9 12.0-16.0 [facility] CenterChmosnqCPOIQIWWQI1080-18-74 08:20:00 Test Item Value Reference Range Interpretation Comments Hct (test code = Hct) 31.7 36.0-48.0 [facility] CenterQmxnpylHDTTSAIURX2343-74-00 08:20:00 Test Item Value Reference Range Interpretation Comments MCV (test code = MCV) 94.9 80.0-98.0 [facility] CenterKbvxpkhXIMDJABYRM9046-91-79 08:20:00 Test Item Value Reference Range Interpretation Comments MCH (test code = MCH) 32.7 pg 27.0-31.0 [facility] CenterHhbqgqcJJAYVARILQ9846-89-68 08:20:00 Test Item Value Reference Range Interpretation Comments MCHC (test code = MCHC) 34.5 32.0-36.0 [place]280-06-17 08:20:00 Test Item Value Reference Range Interpretation Comments RDW (test code = RDW) 14.3 11.5-14.5 [facility] CenterTqkhnowPLORKDDDHJ7309-64-14 08:20:00 Test Item Value Reference Range Interpretation Comments Platelet (test code = Platelet) 321 133-450 [facility] CenterFlnpthsAMEVRGHNEJ2315-23-74 08:20:00 Test Item Value Reference Range Interpretation Comments MPV (test code = MPV) 7.6 7.4-10.4 [place] [address]-06-17 08:20:00 Test Item Value Reference Range Interpretation Comments Neutrophils # (test code = Neutrophils 17.3 1.5-8.1 #) [place]-06-17 08:20:00 Test Item Value Reference Range Interpretation Comments Lymphocytes # (test code = Lymphocytes 0.6 1.0-5.5 #) [place] [address]-06-17 08:20:00 Test Item Value Reference Range Interpretation Comments Monocytes # (test code 0.8 See_Comment [Aut omated message] The = Monocytes #) system which generated this result tra nsmitted reference range : <=0.8. The reference r chase was not used to int erpret this result as normal/abnormal . [place] [address]-06-17 08:20:00 Test Item Value Reference Range Interpretation Comments Eosinophils # (test code 0.2 See_Comment [A utomated message] The = Eosinophils #) system whic h generated this result tra nsmitted reference range : <=0.5. The reference r chase was not used to int erpret this result as normal/abnormal . [place]280-06-17 08:20:00 Test Item Value Reference Range Interpretation Comments Segs (test code = Segs) 85.0 45.0-75.0 [place] [address]-06-17 08:20:00 Test Item Value Reference Range Interpretation Comments Bands (test code = 7.0 See_Comment [Automat ed message] The Bands) system which ge nerated this result transmit bright reference range : <=11.0. The reference r chase was not used to interpr et this result as candice l/abnormal. [facility] CenterMdtqlioQIDDQZAQEP7704-46-53 08:20:00 Test Item Value Reference Range Interpretation Comments Lymphocytes (test code = Lymphocytes) 3.0 20.0-40.0 [place] [address]-06-17 08:20:00 Test Item Value Reference Range Interpretation Comments Monocytes (test code = Monocytes) 4.0 2.0-12.0 [place] [address]-06-17 08:20:00 Test Item Value Reference Range Interpretation Comments Eosinophils (test code = 1.0 See_Comment [A utomated message] The Eosinophils) system which ge nerated this result tra nsmitted reference range : <=4.0. The reference r chase was not used to int erpret this result as normal/abnormal . [facility] CenterPodyestTDOPAJWYWB3040-85-02 08:20:00 Test Item Value Reference Range Interpretation Comments Atypical Lymphs (test code = Atypical 0.0 Lymphs) [place] [address]-06-17 08:20:00 Test Item Value Reference Range Interpretation Comments RBC Morph (test code = Normal (12/13/19 3:20 RBC Morph) AM) [place] [address]-06-17 08:20:00 Test Item Value Reference Range Interpretation Comments Large Plt (test code = Large Plt) Slight [place] [address]-06-17 08:20:00 Test Item Value Reference Range Interpretation Comments WBC (test code = WBC) 18.8 3.7-10.4 [place] [address]-06-17 08:20:00 Test Item Value Reference Range Interpretation Comments RBC (test code = RBC) 3.34 4.20-5.40 [place] [address]-06-17 08:20:00 Test Item Value Reference Range Interpretation Comments Hgb (test code = Hgb) 10.9 12.0-16.0 [place] [address]-06-17 08:20:00 Test Item Value Reference Range Interpretation Comments Hct (test code = Hct) 31.7 36.0-48.0 [place] [address]-06-17 08:20:00 Test Item Value Reference Range Interpretation Comments MCV (test code = MCV) 94.9 80.0-98.0 [place] [address]-06-17 08:20:00 Test Item Value Reference Range Interpretation Comments MCH (test code = MCH) 32.7 pg 27.0-31.0 [place] [address]-06-17 08:20:00 Test Item Value Reference Range Interpretation Comments MCHC (test code = MCHC) 34.5 32.0-36.0 [place]-06-17 08:20:00 Test Item Value Reference Range Interpretation Comments RDW (test code = RDW) 14.3 11.5-14.5 [place] [address]-06-17 08:20:00 Test Item Value Reference Range Interpretation Comments Platelet (test code = Platelet) 321 133-450 [facility] CenterDlgzkfeAZKCWAKJWO7912-92-79 08:20:00 Test Item Value Reference Range Interpretation Comments MPV (test code = MPV) 7.6 7.4-10.4 [place]280-06-17 08:20:00 Test Item Value Reference Range Interpretation Comments Neutrophils # (test code = Neutrophils 17.3 1.5-8.1 #) [place]280-06-17 08:20:00 Test Item Value Reference Range Interpretation Comments Lymphocytes # (test code = Lymphocytes 0.6 1.0-5.5 #) [place]-06-17 08:20:00 Test Item Value Reference Range Interpretation Comments Monocytes # (test code 0.8 See_Comment [Aut omated message] The = Monocytes #) system which generated this result tra nsmitted reference range : <=0.8. The reference r chase was not used to int erpret this result as normal/abnormal . [place]-06-17 08:20:00 Test Item Value Reference Range Interpretation Comments Eosinophils # (test code 0.2 See_Comment [A utomated message] The = Eosinophils #) system whic h generated this result tra nsmitted reference range : <=0.5. The reference r chase was not used to int erpret this result as normal/abnormal . [facility] CenterOazgxgrLADTLYGEDP8183-26-26 08:20:00 Test Item Value Reference Range Interpretation Comments Segs (test code = Segs) 85.0 45.0-75.0 [place]-06-17 08:20:00 Test Item Value Reference Range Interpretation Comments Bands (test code = 7.0 See_Comment [Automat ed message] The Bands) system which ge nerated this result transmit bright reference range : <=11.0. The reference r chase was not used to interpr et this result as candice l/abnormal. [place]-06-17 08:20:00 Test Item Value Reference Range Interpretation Comments Lymphocytes (test code = Lymphocytes) 3.0 20.0-40.0 [place] [address]-06-17 08:20:00 Test Item Value Reference Range Interpretation Comments Monocytes (test code = Monocytes) 4.0 2.0-12.0 [place] [address]-06-17 08:20:00 Test Item Value Reference Range Interpretation Comments Eosinophils (test code = 1.0 See_Comment [A utomated message] The Eosinophils) system which ge nerated this result tra nsmitted reference range : <=4.0. The reference r chase was not used to int erpret this result as normal/abnormal . [place]89280-[place]-17 08:20:00 Test Item Value Reference Range Interpretation Comments Atypical Lymphs (test code = Atypical 0.0 Lymphs) [place] [address]-06-17 08:20:00 Test Item Value Reference Range Interpretation Comments RBC Morph (test code = Normal (12/13/19 3:20 RBC Morph) AM) [address]06-17 08:20:00 Test Item Value Reference Range Interpretation Comments Large Plt (test code = Large Plt) Slight [place] 789280-06-17 08:20:00 Test Item Value Reference Range Interpretation Comments WBC (test code = WBC) 18.8 3.7-10.4 [place] [address]-06-17 08:20:00 Test Item Value Reference Range Interpretation Comments RBC (test code = RBC) 3.34 4.20-5.40 [place] [address]-06-17 08:20:00 Test Item Value Reference Range Interpretation Comments Hgb (test code = Hgb) 10.9 12.0-16.0 [place] [address]-06-17 08:20:00 Test Item Value Reference Range Interpretation Comments Hct (test code = Hct) 31.7 36.0-48.0 [place] 789280-06-17 08:20:00 Test Item Value Reference Range Interpretation Comments MCV (test code = MCV) 94.9 80.0-98.0 [place] [address]-06-17 08:20:00 Test Item Value Reference Range Interpretation Comments MCH (test code = MCH) 32.7 pg 27.0-31.0 [place] [address]-06-17 08:20:00 Test Item Value Reference Range Interpretation Comments MCHC (test code = MCHC) 34.5 32.0-36.0 [place] [address]-06-17 08:20:00 Test Item Value Reference Range Interpretation Comments RDW (test code = RDW) 14.3 11.5-14.5 [place] [address]-06-17 08:20:00 Test Item Value Reference Range Interpretation Comments Platelet (test code = Platelet) 321 133-450 [place] [address]-06-17 08:20:00 Test Item Value Reference Range Interpretation Comments MPV (test code = MPV) 7.6 7.4-10.4 [place] [address]-06-17 08:20:00 Test Item Value Reference Range Interpretation Comments Neutrophils # (test code = Neutrophils 17.3 1.5-8.1 #) [place] [address]-06-17 08:20:00 Test Item Value Reference Range Interpretation Comments Lymphocytes # (test code = Lymphocytes 0.6 1.0-5.5 #) [address]06-17 08:20:00 Test Item Value Reference Range Interpretation Comments Monocytes # (test code 0.8 See_Comment [Aut omated message] The = Monocytes #) system which generated this result tra nsmitted reference range : <=0.8. The reference r chase was not used to int erpret this result as normal/abnormal . [place] [address]-06-17 08:20:00 Test Item Value Reference Range Interpretation Comments Eosinophils # (test code 0.2 See_Comment [A utomated message] The = Eosinophils #) system whic h generated this result tra nsmitted reference range : <=0.5. The reference r chase was not used to int erpret this result as normal/abnormal . [place]89280-06-17 08:20:00 Test Item Value Reference Range Interpretation Comments Segs (test code = Segs) 85.0 45.0-75.0 [place] [address]-06-17 08:20:00 Test Item Value Reference Range Interpretation Comments Bands (test code = 7.0 See_Comment [Automat ed message] The Bands) system which ge nerated this result transmit bright reference range : <=11.0. The reference r chase was not used to interpr et this result as candice l/abnormal. [place] [address]-06-17 08:20:00 Test Item Value Reference Range Interpretation Comments Lymphocytes (test code = Lymphocytes) 3.0 20.0-40.0 [facility]ZcmfysqLLYRLTZORN6590[facility]28-05 08:20:00 Test Item Value Reference Range Interpretation Comments Monocytes (test code = Monocytes) 4.0 2.0-12.0 [place]89280-06-17 08:20:00 Test Item Value Reference Range Interpretation Comments Eosinophils (test code = 1.0 See_Comment [A utomated message] The Eosinophils) system which ge nerated this result tra nsmitted reference range : <=4.0. The reference r chase was not used to int erpret this result as normal/abnormal . [facility] CenterZyvoxusSFPEDOEQZI9079-07-25 08:20:00 Test Item Value Reference Range Interpretation Comments Atypical Lymphs (test code = Atypical 0.0 Lymphs) [place]89280-06-17 08:20:00 Test Item Value Reference Range Interpretation Comments RBC Morph (test code = Normal (12/13/19 3:20 RBC Morph) AM) [place]89280-06-17 08:20:00 Test Item Value Reference Range Interpretation Comments Large Plt (test code = Large Plt) Slight [place] 789280-06-17 08:20:00 Test Item Value Reference Range Interpretation Comments WBC (test code = WBC) 18.8 3.7-10.4 [place] [address]-06-17 08:20:00 Test Item Value Reference Range Interpretation Comments RBC (test code = RBC) 3.34 4.20-5.40 [place] 789280-06-17 08:20:00 Test Item Value Reference Range Interpretation Comments Hgb (test code = Hgb) 10.9 12.0-16.0 [place] [address]-06-17 08:20:00 Test Item Value Reference Range Interpretation Comments Hct (test code = Hct) 31.7 36.0-48.0 [place] 789280-06-17 08:20:00 Test Item Value Reference Range Interpretation Comments MCV (test code = MCV) 94.9 80.0-98.0 [place] [address]-06-17 08:20:00 Test Item Value Reference Range Interpretation Comments MCH (test code = MCH) 32.7 pg 27.0-31.0 [place] 789280-06-17 08:20:00 Test Item Value Reference Range Interpretation Comments MCHC (test code = MCHC) 34.5 32.0-36.0 [facility] CenterPsfzvyrNAJONCHISJ7863-95-89 08:20:00 Test Item Value Reference Range Interpretation Comments RDW (test code = RDW) 14.3 11.5-14.5 [facility] CenterOgkeqoxRQZPZPSDZC4346-68-80 08:20:00 Test Item Value Reference Range Interpretation Comments Platelet (test code = Platelet) 321 133-450 [facility] CenterTzrdiugBUWHLIRVZD7721-42-01 08:20:00 Test Item Value Reference Range Interpretation Comments MPV (test code = MPV) 7.6 7.4-10.4 [place]89280-06-17 08:20:00 Test Item Value Reference Range Interpretation Comments Neutrophils # (test code = Neutrophils 17.3 1.5-8.1 #) [facility] CenterFtevcudQRGTJERAIA2158-17-55 08:20:00 Test Item Value Reference Range Interpretation Comments Lymphocytes # (test code = Lymphocytes 0.6 1.0-5.5 #) [facility] CenterBanjpxqQOEDOVOCYM2149-97-99 08:20:00 Test Item Value Reference Range Interpretation Comments Monocytes # (test code 0.8 See_Comment [Aut omated message] The = Monocytes #) system which generated this result tra nsmitted reference range : <=0.8. The reference r chase was not used to int erpret this result as normal/abnormal . [facility] CenterCwxzwmfVNLUEXUICC0170-46-07 08:20:00 Test Item Value Reference Range Interpretation Comments Eosinophils # (test code 0.2 See_Comment [A utomated message] The = Eosinophils #) system whic h generated this result tra nsmitted reference range : <=0.5. The reference r chase was not used to int erpret this result as normal/abnormal . [place]89280-06-17 08:20:00 Test Item Value Reference Range Interpretation Comments Segs (test code = Segs) 85.0 45.0-75.0 [place] [address]-06-17 08:20:00 Test Item Value Reference Range Interpretation Comments Bands (test code = 7.0 See_Comment [Automat ed message] The Bands) system which ge nerated this result transmit bright reference range : <=11.0. The reference r chase was not used to interpr et this result as candice l/abnormal. [place] [address]-06-17 08:20:00 Test Item Value Reference Range Interpretation Comments Lymphocytes (test code = Lymphocytes) 3.0 20.0-40.0 [address]06-17 08:20:00 Test Item Value Reference Range Interpretation Comments Monocytes (test code = Monocytes) 4.0 2.0-12.0 [address]06-17 08:20:00 Test Item Value Reference Range Interpretation Comments Eosinophils (test code = 1.0 See_Comment [A utomated message] The Eosinophils) system which ge nerated this result tra nsmitted reference range : <=4.0. The reference r chase was not used to int erpret this result as normal/abnormal . [address]06-17 08:20:00 Test Item Value Reference Range Interpretation Comments Atypical Lymphs (test code = Atypical 0.0 Lymphs) [address]06-17 08:20:00 Test Item Value Reference Range Interpretation Comments RBC Morph (test code = Normal (12/13/19 3:20 RBC Morph) AM) [address]06-17 08:20:00 Test Item Value Reference Range Interpretation Comments Large Plt (test code = Large Plt) Slight [address]06-17 08:20:00 Test Item Value Reference Range Interpretation Comments WBC (test code = WBC) 18.8 3.7-10.4 [place] [address]-06-17 08:20:00 Test Item Value Reference Range Interpretation Comments RBC (test code = RBC) 3.34 4.20-5.40 [address]06-17 08:20:00 Test Item Value Reference Range Interpretation Comments Hgb (test code = Hgb) 10.9 12.0-16.0 [address]06-17 08:20:00 Test Item Value Reference Range Interpretation Comments Hct (test code = Hct) 31.7 36.0-48.0 [address]06-17 08:20:00 Test Item Value Reference Range Interpretation Comments MCV (test code = MCV) 94.9 80.0-98.0 [place]89280-06-17 08:20:00 Test Item Value Reference Range Interpretation Comments MCH (test code = MCH) 32.7 pg 27.0-31.0 [facility] CenterEmuqxelXVJCXQELDN6214-08-85 08:20:00 Test Item Value Reference Range Interpretation Comments MCHC (test code = MCHC) 34.5 32.0-36.0 [facility] CenterDcnuuydOZZISLJHKC3001-43-47 08:20:00 Test Item Value Reference Range Interpretation Comments RDW (test code = RDW) 14.3 11.5-14.5 [place]89280-06-17 08:20:00 Test Item Value Reference Range Interpretation Comments Platelet (test code = Platelet) 321 133-450 [facility] CenterFqlkabyHEHLEMAVDC0926-27-59 08:20:00 Test Item Value Reference Range Interpretation Comments MPV (test code = MPV) 7.6 7.4-10.4 [facility] CenterTuhuyoqATGXAUQJKO8541-09-81 08:20:00 Test Item Value Reference Range Interpretation Comments Neutrophils # (test code = Neutrophils 17.3 1.5-8.1 #) [facility] CenterLkxyrulIHVFCTHFBM4029-43-40 08:20:00 Test Item Value Reference Range Interpretation Comments Lymphocytes # (test code = Lymphocytes 0.6 1.0-5.5 #) [facility] CenterOvcrasbWRVULWBBDN5048-21-11 08:20:00 Test Item Value Reference Range Interpretation Comments Monocytes # (test code 0.8 See_Comment [Aut omated message] The = Monocytes #) system which generated this result tra nsmitted reference range : <=0.8. The reference r chase was not used to int erpret this result as normal/abnormal . [facility] CenterVtkjnqfNFQSFGOJJU7501-06-14 08:20:00 Test Item Value Reference Range Interpretation Comments Eosinophils # (test code 0.2 See_Comment [A utomated message] The = Eosinophils #) system whic h generated this result tra nsmitted reference range : <=0.5. The reference r chase was not used to int erpret this result as normal/abnormal . [facility] CenterGyfazwjZDNHBQWENN0044-18-70 08:20:00 Test Item Value Reference Range Interpretation Comments Segs (test code = Segs) 85.0 45.0-75.0 [place]280-06-17 08:20:00 Test Item Value Reference Range Interpretation Comments Bands (test code = 7.0 See_Comment [Automat ed message] The Bands) system which ge nerated this result transmit bright reference range : <=11.0. The reference r chase was not used to interpr et this result as candice l/abnormal. [facility] CenterNhbfjyeQGKJUQXSMA1670-84-74 08:20:00 Test Item Value Reference Range Interpretation Comments Lymphocytes (test code = Lymphocytes) 3.0 20.0-40.0 [place] [address]-06-17 08:20:00 Test Item Value Reference Range Interpretation Comments Monocytes (test code = Monocytes) 4.0 2.0-12.0 [place] [address]-06-17 08:20:00 Test Item Value Reference Range Interpretation Comments Eosinophils (test code = 1.0 See_Comment [A utomated message] The Eosinophils) system which nerated this result tra nsmitted reference range : <=4.0. The reference r chase was not used to int erpret this result as normal/abnormal . [facility] CenterGotzamlUANVYMICYV3049-46-37 08:20:00 Test Item Value Reference Range Interpretation Comments Atypical Lymphs (test code = Atypical 0.0 Lymphs) [address]06-17 08:20:00 Test Item Value Reference Range Interpretation Comments RBC Morph (test code = Normal (12/13/19 3:20 RBC Morph) AM) [place] [address]-06-17 08:20:00 Test Item Value Reference Range Interpretation Comments Large Plt (test code = Large Plt) Slight [place]89280-06-17 08:20:00 Test Item Value Reference Range Interpretation Comments WBC (test code = WBC) 18.8 3.7-10.4 [place] [address]-06-17 08:20:00 Test Item Value Reference Range Interpretation Comments RBC (test code = RBC) 3.34 4.20-5.40 [place] [address]-06-17 08:20:00 Test Item Value Reference Range Interpretation Comments Hgb (test code = Hgb) 10.9 12.0-16.0 [place]280-06-17 08:20:00 Test Item Value Reference Range Interpretation Comments Hct (test code = Hct) 31.7 36.0-48.0 [facility] CenterYyvsknwGEKLRQKHRA5665-68-06 08:20:00 Test Item Value Reference Range Interpretation Comments MCV (test code = MCV) 94.9 80.0-98.0 [facility] CenterIgrnizrEBHSPBYWHB5232-69-66 08:20:00 Test Item Value Reference Range Interpretation Comments MCH (test code = MCH) 32.7 pg 27.0-31.0 [facility] CenterAkpugpiFNQBYFDEHI4742-75-93 08:20:00 Test Item Value Reference Range Interpretation Comments MCHC (test code = MCHC) 34.5 32.0-36.0 [facility] CenterIqpdsmtWHTYNWQFLE6843-89-23 08:20:00 Test Item Value Reference Range Interpretation Comments RDW (test code = RDW) 14.3 11.5-14.5 [facility] CenterAliwxylPGSTJLLAXN0993-61-26 08:20:00 Test Item Value Reference Range Interpretation Comments Platelet (test code = Platelet) 321 133-450 [facility] CenterJscfyeyTCEXBFGHBV0771-14-27 08:20:00 Test Item Value Reference Range Interpretation Comments MPV (test code = MPV) 7.6 7.4-10.4 [facility] CenterOoyerwwSCXNFLDNDF5996-93-73 08:20:00 Test Item Value Reference Range Interpretation Comments Neutrophils # (test code = Neutrophils 17.3 1.5-8.1 #) [facility] CenterWdcvapnZBGSHQMFBC0868-42-72 08:20:00 Test Item Value Reference Range Interpretation Comments Lymphocytes # (test code = Lymphocytes 0.6 1.0-5.5 #) [facility] CenterEzteswtDRQGNGXMRO3775-23-17 08:20:00 Test Item Value Reference Range Interpretation Comments Monocytes # (test code = Monocytes #) 0.8 <=0.8 [place] [address]-06-17 08:20:00 Test Item Value Reference Range Interpretation Comments Eosinophils # (test code = Eosinophils 0.2 <=0.5 #) [facility] CenterQfircklAYQBQDTNZR9093-18-28 08:20:00 Test Item Value Reference Range Interpretation Comments Segs (test code = Segs) 85.0 45.0-75.0 [place]89280-06-17 08:20:00 Test Item Value Reference Range Interpretation Comments Bands (test code = Bands) 7.0 <=11.0 [place] [address]-06-17 08:20:00 Test Item Value Reference Range Interpretation Comments Lymphocytes (test code = Lymphocytes) 3.0 20.0-40.0 [place] [address]-06-17 08:20:00 Test Item Value Reference Range Interpretation Comments Monocytes (test code = Monocytes) 4.0 2.0-12.0 [place] [address]-06-17 08:20:00 Test Item Value Reference Range Interpretation Comments Eosinophils (test code = Eosinophils) 1.0 <=4.0 [place] [address]-06-17 08:20:00 Test Item Value Reference Range Interpretation Comments Atypical Lymphs (test code = Atypical 0.0 Lymphs) [place] [address]-06-17 08:20:00 Test Item Value Reference Range Interpretation Comments RBC Morph (test code = Normal (12/13/19 3:20 RBC Morph) AM) [address]06-17 08:20:00 Test Item Value Reference Range Interpretation Comments Large Plt (test code = Large Plt) Slight [place] 829650-06-15 22:00:00 Test Item Value Reference Range Interpretation Comments Coronavirus (COVID-19) Not Detected (12/11/19 BENNIE (test code = 5:00 PM) Coronavirus (COVID-19) BENNIE) [place] [address]-06-15 22:00:00 Test Item Value Reference Range Interpretation Comments Coronavirus (COVID-19) Not Detected (12/11/19 BENNIE (test code = 5:00 PM) Coronavirus (COVID-19) BENNIE) [place] 829650-06-15 22:00:00 Test Item Value Reference Range Interpretation Comments Coronavirus (COVID-19) Not Detected (12/11/19 BENNIE (test code = 5:00 PM) Coronavirus (COVID-19) BENNIE) [place] [address]-06-15 22:00:00 Test Item Value Reference Range Interpretation Comments Coronavirus (COVID-19) Not Detected (12/11/19 BENNIE (test code = 5:00 PM) Coronavirus (COVID-19) BENNIE) [place] [address]-06-15 22:00:00 Test Item Value Reference Range Interpretation Comments Coronavirus (COVID-19) Not Detected (12/11/19 BENNIE (test code = 5:00 PM) Coronavirus (COVID-19) BENNIE) [facility]AzkviagVNZQAMQTXM5236-73-83 22:00:00 Test Item Value Reference Range Interpretation Comments Coronavirus (COVID-19) Not Detected (12/11/19 BENNIE (test code = 5:00 PM) Coronavirus (COVID-19) BENNIE) [facility] CenterIhagubeTTAGCXYODC9290-65-76 22:00:00 Test Item Value Reference Range Interpretation Comments Coronavirus (COVID-19) Not Detected (12/11/19 BENNIE (test code = 5:00 PM) Coronavirus (COVID-19) BENNIE) [facility] CenterPfvfzqsKZOWQWHOFZ6945-57-56 22:00:00 Test Item Value Reference Range Interpretation Comments Coronavirus (COVID-19) Not Detected (12/11/19 BENNIE (test code = 5:00 PM) Coronavirus (COVID-19) BENNIE) [facility] CenterBlbhsiaXZJIXSZTGM9603-72-32 22:00:00 Test Item Value Reference Range Interpretation Comments Coronavirus (COVID-19) Not Detected (12/11/19 BENNIE (test code = 5:00 PM) Coronavirus (COVID-19) BENNIE) [facility] CenterBxpkqajDUBYPUGJXU9682-31-98 22:00:00 Test Item Value Reference Range Interpretation Comments Coronavirus (COVID-19) Not Detected (12/11/19 BENNIE (test code = 5:00 PM) Coronavirus (COVID-19) BENNIE) [facility] CenterFhmiejbYVOCAKXBLF7629-67-31 22:00:00 Test Item Value Reference Range Interpretation Comments Coronavirus (COVID-19) Not Detected (12/11/19 BENNIE (test code = 5:00 PM) Coronavirus (COVID-19) BENNIE) [facility] CenterYvwborzPPTZXPUAWA7506-90-62 22:00:00 Test Item Value Reference Range Interpretation Comments Coronavirus (COVID-19) Not Detected (12/11/19 BENNIE (test code = 5:00 PM) Coronavirus (COVID-19) BENNIE) [facility]2020-06-15 09:03:00 Test Item Value Reference Range Interpretation Comments Glucose Lvl (test code = Glucose Lvl) 127 70-99 [facility]2020-06-15 09:03:00 Test Item Value Reference Range Interpretation Comments BUN (test code = BUN) 8 7-22 [place] [address]-06-15 09:03:00 Test Item Value Reference Range Interpretation Comments Creatinine Lvl (test code = Creatinine 0.90 0.50-1.40 Lvl) [place] 763680-06-15 09:03:00 Test Item Value Reference Range Interpretation Comments Sodium Lvl (test code = Sodium Lvl) 135 135-145 [place] 763680-06-15 09:03:00 Test Item Value Reference Range Interpretation Comments Potassium Lvl (test code = Potassium 3.6 3.5-5.1 Lvl) [place] [address]-06-15 09:03:00 Test Item Value Reference Range Interpretation Comments Chloride Lvl (test code = Chloride Lvl) 102 95-109 [place] 763680-06-15 09:03:00 Test Item Value Reference Range Interpretation Comments CO2 (test code = CO2) 23 24-32 [place] [address]-06-15 09:03:00 Test Item Value Reference Range Interpretation Comments AGAP (test code = AGAP) 13.6 10.0-20.0 [place] 763680-06-15 09:03:00 Test Item Value Reference Range Interpretation Comments Calcium Lvl (test code = Calcium Lvl) 10.1 8.5-10.5 [place] 763680-06-15 09:03:00 Test Item Value Reference Range Interpretation Comments eGFR (test code = eGFR) 71 [place] 789280-06-15 09:03:00 Test Item Value Reference Range Interpretation Comments RBC Morph (test code = Normal (12/11/19 4:03 RBC Morph) AM) [place] [address]-06-15 09:03:00 Test Item Value Reference Range Interpretation Comments Plt Morph (test code = Normal (12/11/19 4:03 Plt Morph) AM) [place] [address]-06-15 09:03:00 Test Item Value Reference Range Interpretation Comments Segs (test code = Segs) 80.0 45.0-75.0 [place] [address]-06-15 09:03:00 Test Item Value Reference Range Interpretation Comments Bands (test code = 9.0 See_Comment [Automat ed message] The Bands) system which ge nerated this result transmit bright reference range : <=11.0. The reference r chase was not used to interpr et this result as candice l/abnormal. [place]89280-06-15 09:03:00 Test Item Value Reference Range Interpretation Comments Lymphocytes (test code = Lymphocytes) 3.0 20.0-40.0 [place] [address]-06-15 09:03:00 Test Item Value Reference Range Interpretation Comments Atypical Lymphs (test code = Atypical 0.0 Lymphs) [place] [address]-06-15 09:03:00 Test Item Value Reference Range Interpretation Comments Monocytes (test code = Monocytes) 8.0 2.0-12.0 [place] [address]-06-15 09:03:00 Test Item Value Reference Range Interpretation Comments Neutrophils # (test code = Neutrophils 16.6 1.5-8.1 #) [place] [address]-06-15 09:03:00 Test Item Value Reference Range Interpretation Comments Lymphocytes # (test code = Lymphocytes 0.6 1.0-5.5 #) [place] [address]-06-15 09:03:00 Test Item Value Reference Range Interpretation Comments Monocytes # (test code 1.5 See_Comment [Aut omated message] The = Monocytes #) system which generated this result tra nsmitted reference range : <=0.8. The reference r chase was not used to int erpret this result as normal/abnormal . [facility] CenterSmcheqsCTHGTXZKON7763-31-13 09:03:00 Test Item Value Reference Range Interpretation Comments WBC (test code = WBC) 18.6 3.7-10.4 [place]89280-06-15 09:03:00 Test Item Value Reference Range Interpretation Comments RBC (test code = RBC) 3.49 4.20-5.40 [place] [address]-06-15 09:03:00 Test Item Value Reference Range Interpretation Comments Hgb (test code = Hgb) 11.4 12.0-16.0 [place] [address]-06-15 09:03:00 Test Item Value Reference Range Interpretation Comments Hct (test code = Hct) 33.4 36.0-48.0 [place] [address]-06-15 09:03:00 Test Item Value Reference Range Interpretation Comments MCV (test code = MCV) 95.8 80.0-98.0 [place] 789280-06-15 09:03:00 Test Item Value Reference Range Interpretation Comments MCH (test code = MCH) 32.8 pg 27.0-31.0 [place] [address]-06-15 09:03:00 Test Item Value Reference Range Interpretation Comments MCHC (test code = MCHC) 34.3 32.0-36.0 [place] [address]-06-15 09:03:00 Test Item Value Reference Range Interpretation Comments RDW (test code = RDW) 14.2 11.5-14.5 [place] [address]-06-15 09:03:00 Test Item Value Reference Range Interpretation Comments Platelet (test code = Platelet) 351 133-450 [facility] CenterVpteuxbFKTGZHIYBQ5395-46-16 09:03:00 Test Item Value Reference Range Interpretation Comments MPV (test code = MPV) 8.0 7.4-10.4 [place] 763680-06-15 09:03:00 Test Item Value Reference Range Interpretation Comments Glucose Lvl (test code = Glucose Lvl) 127 70-99 [facility]2020-06-15 09:03:00 Test Item Value Reference Range Interpretation Comments BUN (test code = BUN) 8 7-22 [facility]2020-06-15 09:03:00 Test Item Value Reference Range Interpretation Comments Creatinine Lvl (test code = Creatinine 0.90 0.50-1.40 Lvl) [facility]2020-06-15 09:03:00 Test Item Value Reference Range Interpretation Comments Sodium Lvl (test code = Sodium Lvl) 135 135-145 [place] 763680-06-15 09:03:00 Test Item Value Reference Range Interpretation Comments Potassium Lvl (test code = Potassium 3.6 3.5-5.1 Lvl) [place] 763680-06-15 09:03:00 Test Item Value Reference Range Interpretation Comments Chloride Lvl (test code = Chloride Lvl) 102 95-109 [place] 763680-06-15 09:03:00 Test Item Value Reference Range Interpretation Comments CO2 (test code = CO2) 23 24-32 [place] 763680-06-15 09:03:00 Test Item Value Reference Range Interpretation Comments AGAP (test code = AGAP) 13.6 10.0-20.0 [place] [address]-06-15 09:03:00 Test Item Value Reference Range Interpretation Comments Calcium Lvl (test code = Calcium Lvl) 10.1 8.5-10.5 [facility]2020-06-15 09:03:00 Test Item Value Reference Range Interpretation Comments eGFR (test code = eGFR) 71 [facility] CenterQglejddMBLQDTIPXT9407-60-58 09:03:00 Test Item Value Reference Range Interpretation Comments RBC Morph (test code = Normal (12/11/19 4:03 RBC Morph) AM) [place]89280-06-15 09:03:00 Test Item Value Reference Range Interpretation Comments Plt Morph (test code = Normal (12/11/19 4:03 Plt Morph) AM) [facility]bfquxcDNVOUEMLKI1649-23-54 09:03:00 Test Item Value Reference Range Interpretation Comments Segs (test code = Segs) 80.0 45.0-75.0 [place]89280-06-15 09:03:00 Test Item Value Reference Range Interpretation Comments Bands (test code = 9.0 See_Comment [Automat ed message] The Bands) system which ge nerated this result transmit bright reference range : <=11.0. The reference r chase was not used to interpr et this result as candice l/abnormal. [facility] CenterInpladbQEZFDCBUIJ7337-82-33 09:03:00 Test Item Value Reference Range Interpretation Comments Lymphocytes (test code = Lymphocytes) 3.0 20.0-40.0 [place]89280-06-15 09:03:00 Test Item Value Reference Range Interpretation Comments Atypical Lymphs (test code = Atypical 0.0 Lymphs) [place] [address]-06-15 09:03:00 Test Item Value Reference Range Interpretation Comments Monocytes (test code = Monocytes) 8.0 2.0-12.0 [place] [address]-06-15 09:03:00 Test Item Value Reference Range Interpretation Comments Neutrophils # (test code = Neutrophils 16.6 1.5-8.1 #) [place]89280-06-15 09:03:00 Test Item Value Reference Range Interpretation Comments Lymphocytes # (test code = Lymphocytes 0.6 1.0-5.5 #) [facility] CenterAvkghzaWRLSUIYOPV4980-30-45 09:03:00 Test Item Value Reference Range Interpretation Comments Monocytes # (test code 1.5 See_Comment [Aut omated message] The = Monocytes #) system which generated this result tra nsmitted reference range : <=0.8. The reference r chase was not used to int erpret this result as normal/abnormal . [facility] CenterEzuxqfeHZOOJMNFKE6991-36-21 09:03:00 Test Item Value Reference Range Interpretation Comments WBC (test code = WBC) 18.6 3.7-10.4 [place]89280-06-15 09:03:00 Test Item Value Reference Range Interpretation Comments RBC (test code = RBC) 3.49 4.20-5.40 [place] 789280-06-15 09:03:00 Test Item Value Reference Range Interpretation Comments Hgb (test code = Hgb) 11.4 12.0-16.0 [facility] CenterEhticgyRNVSGYSSHB7609-55-04 09:03:00 Test Item Value Reference Range Interpretation Comments Hct (test code = Hct) 33.4 36.0-48.0 [facility] CenterLapwrvoCQMXEMUXCN1034-49-21 09:03:00 Test Item Value Reference Range Interpretation Comments MCV (test code = MCV) 95.8 80.0-98.0 [place]89280-06-15 09:03:00 Test Item Value Reference Range Interpretation Comments MCH (test code = MCH) 32.8 pg 27.0-31.0 [facility] CenterCyvveetTUFDBXNAEE0803-38-22 09:03:00 Test Item Value Reference Range Interpretation Comments MCHC (test code = MCHC) 34.3 32.0-36.0 [facility] CenterCjjxxeaKRRVCVEWWU5669-87-74 09:03:00 Test Item Value Reference Range Interpretation Comments RDW (test code = RDW) 14.2 11.5-14.5 [facility] CenterPqgpjumKNCOFLOXRH2576-02-11 09:03:00 Test Item Value Reference Range Interpretation Comments Platelet (test code = Platelet) 351 133-450 [facility] CenterLksglhdRBJOELMNGM5042-82-52 09:03:00 Test Item Value Reference Range Interpretation Comments MPV (test code = MPV) 8.0 7.4-10.4 [place] 763680-06-15 09:03:00 Test Item Value Reference Range Interpretation Comments Glucose Lvl (test code = Glucose Lvl) 127 70-99 [place] 763680-06-15 09:03:00 Test Item Value Reference Range Interpretation Comments BUN (test code = BUN) 8 7-22 [place] [address]-06-15 09:03:00 Test Item Value Reference Range Interpretation Comments Creatinine Lvl (test code = Creatinine 0.90 0.50-1.40 Lvl) [place] [address]-06-15 09:03:00 Test Item Value Reference Range Interpretation Comments Sodium Lvl (test code = Sodium Lvl) 135 135-145 [place] [address]-06-15 09:03:00 Test Item Value Reference Range Interpretation Comments Potassium Lvl (test code = Potassium 3.6 3.5-5.1 Lvl) [place] 763680-06-15 09:03:00 Test Item Value Reference Range Interpretation Comments Chloride Lvl (test code = Chloride Lvl) 102 95-109 [place] [address]-06-15 09:03:00 Test Item Value Reference Range Interpretation Comments CO2 (test code = CO2) 23 24-32 [place] 763680-06-15 09:03:00 Test Item Value Reference Range Interpretation Comments AGAP (test code = AGAP) 13.6 10.0-20.0 [place]3680-06-15 09:03:00 Test Item Value Reference Range Interpretation Comments Calcium Lvl (test code = Calcium Lvl) 10.1 8.5-10.5 [place] 763680-06-15 09:03:00 Test Item Value Reference Range Interpretation Comments eGFR (test code = eGFR) 71 [place] 789280-06-15 09:03:00 Test Item Value Reference Range Interpretation Comments RBC Morph (test code = Normal (12/11/19 4:03 RBC Morph) AM) [place] 789280-06-15 09:03:00 Test Item Value Reference Range Interpretation Comments Plt Morph (test code = Normal (12/11/19 4:03 Plt Morph) AM) [place] 789280-06-15 09:03:00 Test Item Value Reference Range Interpretation Comments Segs (test code = Segs) 80.0 45.0-75.0 [place]89280-06-15 09:03:00 Test Item Value Reference Range Interpretation Comments Bands (test code = 9.0 See_Comment [Automat ed message] The Bands) system which ge nerated this result transmit bright reference range : <=11.0. The reference r chase was not used to interpr et this result as candice l/abnormal. [place]89280-06-15 09:03:00 Test Item Value Reference Range Interpretation Comments Lymphocytes (test code = Lymphocytes) 3.0 20.0-40.0 [place] [address]-06-15 09:03:00 Test Item Value Reference Range Interpretation Comments Atypical Lymphs (test code = Atypical 0.0 Lymphs) [place] [address]-06-15 09:03:00 Test Item Value Reference Range Interpretation Comments Monocytes (test code = Monocytes) 8.0 2.0-12.0 [place] [address]-06-15 09:03:00 Test Item Value Reference Range Interpretation Comments Neutrophils # (test code = Neutrophils 16.6 1.5-8.1 #) [place] [address]-06-15 09:03:00 Test Item Value Reference Range Interpretation Comments Lymphocytes # (test code = Lymphocytes 0.6 1.0-5.5 #) [place] [address]-06-15 09:03:00 Test Item Value Reference Range Interpretation Comments Monocytes # (test code 1.5 See_Comment [Aut omated message] The = Monocytes #) system which generated this result tra nsmitted reference range : <=0.8. The reference r chase was not used to int erpret this result as normal/abnormal . [facility] CenterAloszzaSHTXRWCSOH0787-48-32 09:03:00 Test Item Value Reference Range Interpretation Comments WBC (test code = WBC) 18.6 3.7-10.4 [place]89280-06-15 09:03:00 Test Item Value Reference Range Interpretation Comments RBC (test code = RBC) 3.49 4.20-5.40 [place] [address]-06-15 09:03:00 Test Item Value Reference Range Interpretation Comments Hgb (test code = Hgb) 11.4 12.0-16.0 [place] [address]-06-15 09:03:00 Test Item Value Reference Range Interpretation Comments Hct (test code = Hct) 33.4 36.0-48.0 [place]89280-06-15 09:03:00 Test Item Value Reference Range Interpretation Comments MCV (test code = MCV) 95.8 80.0-98.0 [place]89280-06-15 09:03:00 Test Item Value Reference Range Interpretation Comments MCH (test code = MCH) 32.8 pg 27.0-31.0 [place]89280-06-15 09:03:00 Test Item Value Reference Range Interpretation Comments MCHC (test code = MCHC) 34.3 32.0-36.0 [place]89280-06-15 09:03:00 Test Item Value Reference Range Interpretation Comments RDW (test code = RDW) 14.2 11.5-14.5 [place]89280-06-15 09:03:00 Test Item Value Reference Range Interpretation Comments Platelet (test code = Platelet) 351 133-450 [facility] CenterFjncfysNLQYDNUYWY5263-85-16 09:03:00 Test Item Value Reference Range Interpretation Comments MPV (test code = MPV) 8.0 7.4-10.4 [place] 763680-06-15 09:03:00 Test Item Value Reference Range Interpretation Comments Glucose Lvl (test code = Glucose Lvl) 127 70-99 [facility]2020-06-15 09:03:00 Test Item Value Reference Range Interpretation Comments BUN (test code = BUN) 8 7-22 [place] 763680-06-15 09:03:00 Test Item Value Reference Range Interpretation Comments Creatinine Lvl (test code = Creatinine 0.90 0.50-1.40 Lvl) [place] 763680-06-15 09:03:00 Test Item Value Reference Range Interpretation Comments Sodium Lvl (test code = Sodium Lvl) 135 135-145 [place] 763680-06-15 09:03:00 Test Item Value Reference Range Interpretation Comments Potassium Lvl (test code = Potassium 3.6 3.5-5.1 Lvl) [place] 763680-06-15 09:03:00 Test Item Value Reference Range Interpretation Comments Chloride Lvl (test code = Chloride Lvl) 102 95-109 [facility]2020-06-15 09:03:00 Test Item Value Reference Range Interpretation Comments CO2 (test code = CO2) 23 24-32 [place] 763680-06-15 09:03:00 Test Item Value Reference Range Interpretation Comments AGAP (test code = AGAP) 13.6 10.0-20.0 [place] 763680-06-15 09:03:00 Test Item Value Reference Range Interpretation Comments Calcium Lvl (test code = Calcium Lvl) 10.1 8.5-10.5 [facility]2020-06-15 09:03:00 Test Item Value Reference Range Interpretation Comments eGFR (test code = eGFR) 71 [facility] CenterWtlpsneHCOTSWOQBN6901-49-99 09:03:00 Test Item Value Reference Range Interpretation Comments RBC Morph (test code = Normal (12/11/19 4:03 RBC Morph) AM) [place]89280-06-15 09:03:00 Test Item Value Reference Range Interpretation Comments Plt Morph (test code = Normal (12/11/19 4:03 Plt Morph) AM) [facility] CenterIuoqwpeBARRUDMPQF8309-47-98 09:03:00 Test Item Value Reference Range Interpretation Comments Segs (test code = Segs) 80.0 45.0-75.0 [place]89280-06-15 09:03:00 Test Item Value Reference Range Interpretation Comments Bands (test code = 9.0 See_Comment [Automat ed message] The Bands) system which ge nerated this result transmit bright reference range : <=11.0. The reference r chase was not used to interpr et this result as candice l/abnormal. [facility] CenterPgiwvynCSXTPPQKTU7717-17-75 09:03:00 Test Item Value Reference Range Interpretation Comments Lymphocytes (test code = Lymphocytes) 3.0 20.0-40.0 [facility] CenterEkwatxiUJFHKFGNJB6772-45-75 09:03:00 Test Item Value Reference Range Interpretation Comments Atypical Lymphs (test code = Atypical 0.0 Lymphs) [place]89280-06-15 09:03:00 Test Item Value Reference Range Interpretation Comments Monocytes (test code = Monocytes) 8.0 2.0-12.0 [facility] CenterGfhpwrfQOTKHBTEZF9837-44-49 09:03:00 Test Item Value Reference Range Interpretation Comments Neutrophils # (test code = Neutrophils 16.6 1.5-8.1 #) [facility] CenterFyekqtdDVDNVQQDYZ5292-92-84 09:03:00 Test Item Value Reference Range Interpretation Comments Lymphocytes # (test code = Lymphocytes 0.6 1.0-5.5 #) [facility] CenterKsephqeCKDVLDZBCG6999-55-04 09:03:00 Test Item Value Reference Range Interpretation Comments Monocytes # (test code 1.5 See_Comment [Aut omated message] The = Monocytes #) system which generated this result tra nsmitted reference range : <=0.8. The reference r chase was not used to int erpret this result as normal/abnormal . [facility] CenterBsagqztRLIOFNVPLV5331-20-71 09:03:00 Test Item Value Reference Range Interpretation Comments WBC (test code = WBC) 18.6 3.7-10.4 [facility] CenterUpddyneZQGQLAZWYH3956-17-08 09:03:00 Test Item Value Reference Range Interpretation Comments RBC (test code = RBC) 3.49 4.20-5.40 [facility] CenterNmmdojqPUMVNIBDVE2947-49-94 09:03:00 Test Item Value Reference Range Interpretation Comments Hgb (test code = Hgb) 11.4 12.0-16.0 [facility] CenterIjoacdmHQCVMVHONW8692-26-56 09:03:00 Test Item Value Reference Range Interpretation Comments Hct (test code = Hct) 33.4 36.0-48.0 [facility] CenterYlqsuqqAHAZTYMECW6943-17-26 09:03:00 Test Item Value Reference Range Interpretation Comments MCV (test code = MCV) 95.8 80.0-98.0 [facility] CenterRpydeiuOUZWHGPEBU2445-46-67 09:03:00 Test Item Value Reference Range Interpretation Comments MCH (test code = MCH) 32.8 pg 27.0-31.0 [facility] CenterLnqwsmgPWDXVTBDBX3112-82-04 09:03:00 Test Item Value Reference Range Interpretation Comments MCHC (test code = MCHC) 34.3 32.0-36.0 [facility] CenterOhpybcgIKQVMHVYDO6718-34-95 09:03:00 Test Item Value Reference Range Interpretation Comments RDW (test code = RDW) 14.2 11.5-14.5 [place]89280-06-15 09:03:00 Test Item Value Reference Range Interpretation Comments Platelet (test code = Platelet) 351 133-450 [place]89280-06-15 09:03:00 Test Item Value Reference Range Interpretation Comments MPV (test code = MPV) 8.0 7.4-10.4 [place] 763680-06-15 09:03:00 Test Item Value Reference Range Interpretation Comments Glucose Lvl (test code = Glucose Lvl) 127 70-99 [place] 763680-06-15 09:03:00 Test Item Value Reference Range Interpretation Comments BUN (test code = BUN) 8 7-22 [place] 763680-06-15 09:03:00 Test Item Value Reference Range Interpretation Comments Creatinine Lvl (test code = Creatinine 0.90 0.50-1.40 Lvl) [place]3680-06-15 09:03:00 Test Item Value Reference Range Interpretation Comments Sodium Lvl (test code = Sodium Lvl) 135 135-145 [place] 763680-06-15 09:03:00 Test Item Value Reference Range Interpretation Comments Potassium Lvl (test code = Potassium 3.6 3.5-5.1 Lvl) [place] 763680-06-15 09:03:00 Test Item Value Reference Range Interpretation Comments Chloride Lvl (test code = Chloride Lvl) 102 95-109 [place] 763680-06-15 09:03:00 Test Item Value Reference Range Interpretation Comments CO2 (test code = CO2) 23 24-32 [place] 763680-06-15 09:03:00 Test Item Value Reference Range Interpretation Comments AGAP (test code = AGAP) 13.6 10.0-20.0 [place] 763680-06-15 09:03:00 Test Item Value Reference Range Interpretation Comments Calcium Lvl (test code = Calcium Lvl) 10.1 8.5-10.5 [place]3680-06-15 09:03:00 Test Item Value Reference Range Interpretation Comments eGFR (test code = eGFR) 71 [place]89280-06-15 09:03:00 Test Item Value Reference Range Interpretation Comments RBC Morph (test code = Normal (12/11/19 4:03 RBC Morph) AM) [facility] CenterMyytogtBFXNPOFGUE6721-61-90 09:03:00 Test Item Value Reference Range Interpretation Comments Plt Morph (test code = Normal (12/11/19 4:03 Plt Morph) AM) [facility] CenterBmrxpxaOLBFATVUJV4805-14-42 09:03:00 Test Item Value Reference Range Interpretation Comments Segs (test code = Segs) 80.0 45.0-75.0 [facility] CenterEktmwutUSVFDRNOIH5692-68-06 09:03:00 Test Item Value Reference Range Interpretation Comments Bands (test code = 9.0 See_Comment [Automat ed message] The Bands) system which ge nerated this result transmit bright reference range : <=11.0. The reference r chase was not used to interpr et this result as candice l/abnormal. [facility] CenterWsgebgoEKZWZOYUPV5740-94-89 09:03:00 Test Item Value Reference Range Interpretation Comments Lymphocytes (test code = Lymphocytes) 3.0 20.0-40.0 [facility] CenterZmymgxyIDXBWBXKNP3741-06-29 09:03:00 Test Item Value Reference Range Interpretation Comments Atypical Lymphs (test code = Atypical 0.0 Lymphs) [facility] CenterSpoybpwCNZXCATCRN8533-68-95 09:03:00 Test Item Value Reference Range Interpretation Comments Monocytes (test code = Monocytes) 8.0 2.0-12.0 [facility] CenterQzwqugtFYMJPZJAJY4011-11-38 09:03:00 Test Item Value Reference Range Interpretation Comments Neutrophils # (test code = Neutrophils 16.6 1.5-8.1 #) [facility] CenterXsubwjlSCZVPOAUCF0860-72-12 09:03:00 Test Item Value Reference Range Interpretation Comments Lymphocytes # (test code = Lymphocytes 0.6 1.0-5.5 #) [place] [address]-06-15 09:03:00 Test Item Value Reference Range Interpretation Comments Monocytes # (test code 1.5 See_Comment [Aut omated message] The = Monocytes #) system which generated this result tra nsmitted reference range : <=0.8. The reference r chase was not used to int erpret this result as normal/abnormal . [facility] CenterYtojrnnRWWWQWLMUA5483-03-98 09:03:00 Test Item Value Reference Range Interpretation Comments WBC (test code = WBC) 18.6 3.7-10.4 [place] [address]-06-15 09:03:00 Test Item Value Reference Range Interpretation Comments RBC (test code = RBC) 3.49 4.20-5.40 [place]89280-06-15 09:03:00 Test Item Value Reference Range Interpretation Comments Hgb (test code = Hgb) 11.4 12.0-16.0 [place] [address]-06-15 09:03:00 Test Item Value Reference Range Interpretation Comments Hct (test code = Hct) 33.4 36.0-48.0 [place] [address]-06-15 09:03:00 Test Item Value Reference Range Interpretation Comments MCV (test code = MCV) 95.8 80.0-98.0 [place] [address]-06-15 09:03:00 Test Item Value Reference Range Interpretation Comments MCH (test code = MCH) 32.8 pg 27.0-31.0 [place] [address]-06-15 09:03:00 Test Item Value Reference Range Interpretation Comments MCHC (test code = MCHC) 34.3 32.0-36.0 [place]89280-06-15 09:03:00 Test Item Value Reference Range Interpretation Comments RDW (test code = RDW) 14.2 11.5-14.5 [place]89280-06-15 09:03:00 Test Item Value Reference Range Interpretation Comments Platelet (test code = Platelet) 351 133-450 [facility] CenterWuxizfuDYTDMWMWQT8135-34-15 09:03:00 Test Item Value Reference Range Interpretation Comments MPV (test code = MPV) 8.0 7.4-10.4 [facility]2020-06-15 09:03:00 Test Item Value Reference Range Interpretation Comments Glucose Lvl (test code = Glucose Lvl) 127 70-99 [facility]2020-06-15 09:03:00 Test Item Value Reference Range Interpretation Comments BUN (test code = BUN) 8 7-22 [place] 763680-06-15 09:03:00 Test Item Value Reference Range Interpretation Comments Creatinine Lvl (test code = Creatinine 0.90 0.50-1.40 Lvl) [place]3680-06-15 09:03:00 Test Item Value Reference Range Interpretation Comments Sodium Lvl (test code = Sodium Lvl) 135 135-145 [facility]2020-06-15 09:03:00 Test Item Value Reference Range Interpretation Comments Potassium Lvl (test code = Potassium 3.6 3.5-5.1 Lvl) [facility]2020-06-15 09:03:00 Test Item Value Reference Range Interpretation Comments Chloride Lvl (test code = Chloride Lvl) 102 95-109 [facility]2020-06-15 09:03:00 Test Item Value Reference Range Interpretation Comments CO2 (test code = CO2) 23 24-32 [place] 763680-06-15 09:03:00 Test Item Value Reference Range Interpretation Comments AGAP (test code = AGAP) 13.6 10.0-20.0 [place] 763680-06-15 09:03:00 Test Item Value Reference Range Interpretation Comments Calcium Lvl (test code = Calcium Lvl) 10.1 8.5-10.5 [facility]2020-06-15 09:03:00 Test Item Value Reference Range Interpretation Comments eGFR (test code = eGFR) 71 [facility] CenterIknlpokIEJFFNYWMP9120-98-10 09:03:00 Test Item Value Reference Range Interpretation Comments RBC Morph (test code = Normal (12/11/19 4:03 RBC Morph) AM) [place]89280-06-15 09:03:00 Test Item Value Reference Range Interpretation Comments Plt Morph (test code = Normal (12/11/19 4:03 Plt Morph) AM) [facility] CenterQujaxneLYXZUKOKRL6826-74-02 09:03:00 Test Item Value Reference Range Interpretation Comments Segs (test code = Segs) 80.0 45.0-75.0 [place]89280-06-15 09:03:00 Test Item Value Reference Range Interpretation Comments Bands (test code = 9.0 See_Comment [Automat ed message] The Bands) system which ge nerated this result transmit bright reference range : <=11.0. The reference r chase was not used to interpr et this result as candice l/abnormal. [facility] CenterWdtgdguBWCTUNOZUF8657-55-30 09:03:00 Test Item Value Reference Range Interpretation Comments Lymphocytes (test code = Lymphocytes) 3.0 20.0-40.0 [place] [address]-06-15 09:03:00 Test Item Value Reference Range Interpretation Comments Atypical Lymphs (test code = Atypical 0.0 Lymphs) [place] [address]-06-15 09:03:00 Test Item Value Reference Range Interpretation Comments Monocytes (test code = Monocytes) 8.0 2.0-12.0 [place] [address]-06-15 09:03:00 Test Item Value Reference Range Interpretation Comments Neutrophils # (test code = Neutrophils 16.6 1.5-8.1 #) [place]89280-06-15 09:03:00 Test Item Value Reference Range Interpretation Comments Lymphocytes # (test code = Lymphocytes 0.6 1.0-5.5 #) [place] [address]-06-15 09:03:00 Test Item Value Reference Range Interpretation Comments Monocytes # (test code 1.5 See_Comment [Aut omated message] The = Monocytes #) system which generated this result tra nsmitted reference range : <=0.8. The reference r chase was not used to int erpret this result as normal/abnormal . [place]89280-06-15 09:03:00 Test Item Value Reference Range Interpretation Comments WBC (test code = WBC) 18.6 3.7-10.4 [place] [address]-06-15 09:03:00 Test Item Value Reference Range Interpretation Comments RBC (test code = RBC) 3.49 4.20-5.40 [place] [address]-06-15 09:03:00 Test Item Value Reference Range Interpretation Comments Hgb (test code = Hgb) 11.4 12.0-16.0 [place] [address]-06-15 09:03:00 Test Item Value Reference Range Interpretation Comments Hct (test code = Hct) 33.4 36.0-48.0 [place] [address]-06-15 09:03:00 Test Item Value Reference Range Interpretation Comments MCV (test code = MCV) 95.8 80.0-98.0 [place] [address]-06-15 09:03:00 Test Item Value Reference Range Interpretation Comments MCH (test code = MCH) 32.8 pg 27.0-31.0 [place] [address]-06-15 09:03:00 Test Item Value Reference Range Interpretation Comments MCHC (test code = MCHC) 34.3 32.0-36.0 [facility] CenterLfkcoioLXBSGBSNNK0114-18-78 09:03:00 Test Item Value Reference Range Interpretation Comments RDW (test code = RDW) 14.2 11.5-14.5 [place]89280-06-15 09:03:00 Test Item Value Reference Range Interpretation Comments Platelet (test code = Platelet) 351 133-450 [facility] CenterXwzoyoxFHGLVUOGJN2740-09-31 09:03:00 Test Item Value Reference Range Interpretation Comments MPV (test code = MPV) 8.0 7.4-10.4 [facility]2020-06-15 09:03:00 Test Item Value Reference Range Interpretation Comments Glucose Lvl (test code = Glucose Lvl) 127 70-99 [facility]2020-06-15 09:03:00 Test Item Value Reference Range Interpretation Comments BUN (test code = BUN) 8 7-22 [place] 763680-06-15 09:03:00 Test Item Value Reference Range Interpretation Comments Creatinine Lvl (test code = Creatinine 0.90 0.50-1.40 Lvl) [facility]2020-06-15 09:03:00 Test Item Value Reference Range Interpretation Comments Sodium Lvl (test code = Sodium Lvl) 135 135-145 [facility]2020-06-15 09:03:00 Test Item Value Reference Range Interpretation Comments Potassium Lvl (test code = Potassium 3.6 3.5-5.1 Lvl) [facility]2020-06-15 09:03:00 Test Item Value Reference Range Interpretation Comments Chloride Lvl (test code = Chloride Lvl) 102 95-109 [place] 763680-06-15 09:03:00 Test Item Value Reference Range Interpretation Comments CO2 (test code = CO2) 23 24-32 [facility]2020-06-15 09:03:00 Test Item Value Reference Range Interpretation Comments AGAP (test code = AGAP) 13.6 10.0-20.0 [place] 763680-06-15 09:03:00 Test Item Value Reference Range Interpretation Comments Calcium Lvl (test code = Calcium Lvl) 10.1 8.5-10.5 [facility]2020-06-15 09:03:00 Test Item Value Reference Range Interpretation Comments eGFR (test code = eGFR) 71 [facility] CenterAkqexgeZLDLTRGZBC1507-32-63 09:03:00 Test Item Value Reference Range Interpretation Comments RBC Morph (test code = Normal (12/11/19 4:03 RBC Morph) AM) [facility] [facility]ULH3786[facility]63-55 09:03:00 Test Item Value Reference Range Interpretation Comments Plt Morph (test code = Normal (12/11/19 4:03 Plt Morph) AM) [facility] CenterMbzeqhyCBRCNLRFSF9455-50-34 09:03:00 Test Item Value Reference Range Interpretation Comments Segs (test code = Segs) 80.0 45.0-75.0 [place] [address]-06-15 09:03:00 Test Item Value Reference Range Interpretation Comments Bands (test code = 9.0 See_Comment [Automat ed message] The Bands) system which ge nerated this result transmit bright reference range : <=11.0. The reference r chase was not used to interpr et this result as candice l/abnormal. [facility] CenterHsnfhzqIRLMIQGYCJ9944-57-38 09:03:00 Test Item Value Reference Range Interpretation Comments Lymphocytes (test code = Lymphocytes) 3.0 20.0-40.0 [place] 789280-06-15 09:03:00 Test Item Value Reference Range Interpretation Comments Atypical Lymphs (test code = Atypical 0.0 Lymphs) [place] [address]-06-15 09:03:00 Test Item Value Reference Range Interpretation Comments Monocytes (test code = Monocytes) 8.0 2.0-12.0 [place] 789280-06-15 09:03:00 Test Item Value Reference Range Interpretation Comments Neutrophils # (test code = Neutrophils 16.6 1.5-8.1 #) [place] [address]-06-15 09:03:00 Test Item Value Reference Range Interpretation Comments Lymphocytes # (test code = Lymphocytes 0.6 1.0-5.5 #) [place] [address]-06-15 09:03:00 Test Item Value Reference Range Interpretation Comments Monocytes # (test code 1.5 See_Comment [Aut omated message] The = Monocytes #) system which generated this result tra nsmitted reference range : <=0.8. The reference r chase was not used to int erpret this result as normal/abnormal . [facility] CenterPeiiolmSCFOJPUDXI3478-43-38 09:03:00 Test Item Value Reference Range Interpretation Comments WBC (test code = WBC) 18.6 3.7-10.4 [facility] CenterEqkujsjKJWKIMTTHO8494-72-26 09:03:00 Test Item Value Reference Range Interpretation Comments RBC (test code = RBC) 3.49 4.20-5.40 [facility] CenterYywmrkpIGHWTGLZQX6147-02-16 09:03:00 Test Item Value Reference Range Interpretation Comments Hgb (test code = Hgb) 11.4 12.0-16.0 [facility] CenterNfortorNNUHVLFOCD4549-15-00 09:03:00 Test Item Value Reference Range Interpretation Comments Hct (test code = Hct) 33.4 36.0-48.0 [place] 789280-06-15 09:03:00 Test Item Value Reference Range Interpretation Comments MCV (test code = MCV) 95.8 80.0-98.0 [facility] CenterHdmplrfBCADLGJNOA4121-41-75 09:03:00 Test Item Value Reference Range Interpretation Comments MCH (test code = MCH) 32.8 pg 27.0-31.0 [facility] CenterGndthjjDJESDKZGWZ5790-81-11 09:03:00 Test Item Value Reference Range Interpretation Comments MCHC (test code = MCHC) 34.3 32.0-36.0 [facility] CenterMewjsioCSGGYEMYGB5105-42-63 09:03:00 Test Item Value Reference Range Interpretation Comments RDW (test code = RDW) 14.2 11.5-14.5 [facility] CenterXitzsflPOBRGHJCXC5423-98-51 09:03:00 Test Item Value Reference Range Interpretation Comments Platelet (test code = Platelet) 351 133-450 [facility] CenterJaocwsyNEEKMIQZJQ7547-40-51 09:03:00 Test Item Value Reference Range Interpretation Comments MPV (test code = MPV) 8.0 7.4-10.4 [facility]2020-06-15 09:03:00 Test Item Value Reference Range Interpretation Comments Glucose Lvl (test code = Glucose Lvl) 127 70-99 [facility]2020-06-15 09:03:00 Test Item Value Reference Range Interpretation Comments BUN (test code = BUN) 8 7-22 [place] 763680-06-15 09:03:00 Test Item Value Reference Range Interpretation Comments Creatinine Lvl (test code = Creatinine 0.90 0.50-1.40 Lvl) [place] [address]-06-15 09:03:00 Test Item Value Reference Range Interpretation Comments Sodium Lvl (test code = Sodium Lvl) 135 135-145 [place] [address]-06-15 09:03:00 Test Item Value Reference Range Interpretation Comments Potassium Lvl (test code = Potassium 3.6 3.5-5.1 Lvl) [place] 763680-06-15 09:03:00 Test Item Value Reference Range Interpretation Comments Chloride Lvl (test code = Chloride Lvl) 102 95-109 [place] 763680-06-15 09:03:00 Test Item Value Reference Range Interpretation Comments CO2 (test code = CO2) 23 24-32 [place] [address]-06-15 09:03:00 Test Item Value Reference Range Interpretation Comments AGAP (test code = AGAP) 13.6 10.0-20.0 [place] 763680-06-15 09:03:00 Test Item Value Reference Range Interpretation Comments Calcium Lvl (test code = Calcium Lvl) 10.1 8.5-10.5 [place] [address]-06-15 09:03:00 Test Item Value Reference Range Interpretation Comments eGFR (test code = eGFR) 71 [place] 789280-06-15 09:03:00 Test Item Value Reference Range Interpretation Comments RBC Morph (test code = Normal (12/11/19 4:03 RBC Morph) AM) [place] 789280-06-15 09:03:00 Test Item Value Reference Range Interpretation Comments Plt Morph (test code = Normal (12/11/19 4:03 Plt Morph) AM) [place] 789280-06-15 09:03:00 Test Item Value Reference Range Interpretation Comments Segs (test code = Segs) 80.0 45.0-75.0 [place] [address]-06-15 09:03:00 Test Item Value Reference Range Interpretation Comments Bands (test code = 9.0 See_Comment [Automat ed message] The Bands) system which ge nerated this result transmit bright reference range : <=11.0. The reference r chase was not used to interpr et this result as candice l/abnormal. [place] [address]-06-15 09:03:00 Test Item Value Reference Range Interpretation Comments Lymphocytes (test code = Lymphocytes) 3.0 20.0-40.0 [place] [address]-06-15 09:03:00 Test Item Value Reference Range Interpretation Comments Atypical Lymphs (test code = Atypical 0.0 Lymphs) [place] [address]-06-15 09:03:00 Test Item Value Reference Range Interpretation Comments Monocytes (test code = Monocytes) 8.0 2.0-12.0 [place] [address]-06-15 09:03:00 Test Item Value Reference Range Interpretation Comments Neutrophils # (test code = Neutrophils 16.6 1.5-8.1 #) [place] [address]-06-15 09:03:00 Test Item Value Reference Range Interpretation Comments Lymphocytes # (test code = Lymphocytes 0.6 1.0-5.5 #) [place] [address]-06-15 09:03:00 Test Item Value Reference Range Interpretation Comments Monocytes # (test code 1.5 See_Comment [Aut omated message] The = Monocytes #) system which generated this result tra nsmitted reference range : <=0.8. The reference r chase was not used to int erpret this result as normal/abnormal . [place] [address]-06-15 09:03:00 Test Item Value Reference Range Interpretation Comments WBC (test code = WBC) 18.6 3.7-10.4 [place] [address]-06-15 09:03:00 Test Item Value Reference Range Interpretation Comments RBC (test code = RBC) 3.49 4.20-5.40 [place] [address]-06-15 09:03:00 Test Item Value Reference Range Interpretation Comments Hgb (test code = Hgb) 11.4 12.0-16.0 [place] [address]-06-15 09:03:00 Test Item Value Reference Range Interpretation Comments Hct (test code = Hct) 33.4 36.0-48.0 [place] [address]-06-15 09:03:00 Test Item Value Reference Range Interpretation Comments MCV (test code = MCV) 95.8 80.0-98.0 [place] [address]-06-15 09:03:00 Test Item Value Reference Range Interpretation Comments MCH (test code = MCH) 32.8 pg 27.0-31.0 [place] 789280-06-15 09:03:00 Test Item Value Reference Range Interpretation Comments MCHC (test code = MCHC) 34.3 32.0-36.0 [facility] CenterBfrjaijLEMTJGSDUX3860-91-87 09:03:00 Test Item Value Reference Range Interpretation Comments RDW (test code = RDW) 14.2 11.5-14.5 [place] 789280-06-15 09:03:00 Test Item Value Reference Range Interpretation Comments Platelet (test code = Platelet) 351 133-450 [facility] CenterOtbwhqmXLWARQCFGO4140-85-88 09:03:00 Test Item Value Reference Range Interpretation Comments MPV (test code = MPV) 8.0 7.4-10.4 [facility]2020-06-15 09:03:00 Test Item Value Reference Range Interpretation Comments Glucose Lvl (test code = Glucose Lvl) 127 70-99 [place] 763680-06-15 09:03:00 Test Item Value Reference Range Interpretation Comments BUN (test code = BUN) 8 7-22 [place] 763680-06-15 09:03:00 Test Item Value Reference Range Interpretation Comments Creatinine Lvl (test code = Creatinine 0.90 0.50-1.40 Lvl) [facility]2020-06-15 09:03:00 Test Item Value Reference Range Interpretation Comments Sodium Lvl (test code = Sodium Lvl) 135 135-145 [place] 763680-06-15 09:03:00 Test Item Value Reference Range Interpretation Comments Potassium Lvl (test code = Potassium 3.6 3.5-5.1 Lvl) [place] 763680-06-15 09:03:00 Test Item Value Reference Range Interpretation Comments Chloride Lvl (test code = Chloride Lvl) 102 95-109 [place] 763680-06-15 09:03:00 Test Item Value Reference Range Interpretation Comments CO2 (test code = CO2) 23 24-32 [place] 763680-06-15 09:03:00 Test Item Value Reference Range Interpretation Comments AGAP (test code = AGAP) 13.6 10.0-20.0 [facility]2020-06-15 09:03:00 Test Item Value Reference Range Interpretation Comments Calcium Lvl (test code = Calcium Lvl) 10.1 8.5-10.5 [facility]2020-06-15 09:03:00 Test Item Value Reference Range Interpretation Comments eGFR (test code = eGFR) 71 [facility] CenterIwreuulBOPUGFLRIH7287-97-10 09:03:00 Test Item Value Reference Range Interpretation Comments RBC Morph (test code = Normal (12/11/19 4:03 RBC Morph) AM) [facility] CenterZcbolddRDQDYWVZIH9712-26-59 09:03:00 Test Item Value Reference Range Interpretation Comments Plt Morph (test code = Normal (12/11/19 4:03 Plt Morph) AM) [place] 789280-06-15 09:03:00 Test Item Value Reference Range Interpretation Comments Segs (test code = Segs) 80.0 45.0-75.0 [place] 789280-06-15 09:03:00 Test Item Value Reference Range Interpretation Comments Bands (test code = 9.0 See_Comment [Automat ed message] The Bands) system which ge nerated this result transmit bright reference range : <=11.0. The reference r chase was not used to interpr et this result as candice l/abnormal. [facility] CenterKikdoevWLWHUEJGDG0955-25-53 09:03:00 Test Item Value Reference Range Interpretation Comments Lymphocytes (test code = Lymphocytes) 3.0 20.0-40.0 [place] 789280-06-15 09:03:00 Test Item Value Reference Range Interpretation Comments Atypical Lymphs (test code = Atypical 0.0 Lymphs) [facility] CenterXpiexvmCDCUKZZNPZ1800-32-66 09:03:00 Test Item Value Reference Range Interpretation Comments Monocytes (test code = Monocytes) 8.0 2.0-12.0 [place] 789280-06-15 09:03:00 Test Item Value Reference Range Interpretation Comments Neutrophils # (test code = Neutrophils 16.6 1.5-8.1 #) [place] 789280-06-15 09:03:00 Test Item Value Reference Range Interpretation Comments Lymphocytes # (test code = Lymphocytes 0.6 1.0-5.5 #) [facility] CenterAyaxjrlABIXWKRPYL1608-97-69 09:03:00 Test Item Value Reference Range Interpretation Comments Monocytes # (test code 1.5 See_Comment [Aut omated message] The = Monocytes #) system which generated this result tra nsmitted reference range : <=0.8. The reference r chase was not used to int erpret this result as normal/abnormal . [facility]FE[facility]JM3056[facility]97 [facility]:03:00 Test Item Value Reference Range Interpretation Comments WBC (test code = WBC) 18.6 3.7-10.4 [facility]KynnudkQKKZVRIYAC0867-05-46 09:03:00 Test Item Value Reference Range Interpretation Comments RBC (test code = RBC) 3.49 4.20-5.[address] [facility] CenterPoobvicLKIYNGNUWC1029-46-50 09:03:00 Test Item Value Reference Range Interpretation Comments Hgb (test code = Hgb) 11.4 12.0-16.[address] [facility] CenterDbbjxuuSYEGAFMZIA4396-92-33 09:03:00 Test Item Value Reference Range Interpretation Comments Hct (test code = Hct) 33.4 36.0-48.[address] [facility] CenterCsexpmdWXEJAZKSSB7530-07-68 09:03:00 Test Item Value Reference Range Interpretation Comments MCV (test code = MCV) 95.8 80.0-98.0 [facility]WhhmyjmOZMUDVSGPB8701-10-69 09:03:00 Test Item Value Reference Range Interpretation Comments MCH (test code = MCH) 32.8 pg 27.0-31.0 [facility] AmericaCsxelxgAZBQELFQRV5177-68-47 09:03:00 Test Item Value Reference Range Interpretation Comments MCHC (test code = MCHC) 34.3 32.0-36.[address] [facility] CenterGfstfcvZLWTWYWPHU5694-67-20 09:03:00 Test Item Value Reference Range Interpretation Comments RDW (test code = RDW) 14.2 11.5-14.[address] [facility] CenterQbbextwQABYRRRSHA4087-72-61 09:03:00 Test Item Value Reference Range Interpretation Comments Platelet (test code = Platelet) 351 133-[address] [facility] CenterNddwlwxVIKOAIIPZV7330-78-43 09:03:00 Test Item Value Reference Range Interpretation Comments MPV (test code = MPV) 8.0 7.4-10.4 [place] 763680-06-15 09:03:00 Test Item Value Reference Range Interpretation Comments Glucose Lvl (test code = Glucose Lvl) 127 70-99 [place] 763680-06-15 09:03:00 Test Item Value Reference Range Interpretation Comments BUN (test code = BUN) 8 7-22 [place] 763680-06-15 09:03:00 Test Item Value Reference Range Interpretation Comments Creatinine Lvl (test code = Creatinine 0.90 0.50-1.40 Lvl) [place] 763680-06-15 09:03:00 Test Item Value Reference Range Interpretation Comments Sodium Lvl (test code = Sodium Lvl) 135 135-145 [place] 763680-06-15 09:03:00 Test Item Value Reference Range Interpretation Comments Potassium Lvl (test code = Potassium 3.6 3.5-5.1 Lvl) [place] 763680-06-15 09:03:00 Test Item Value Reference Range Interpretation Comments Chloride Lvl (test code = Chloride Lvl) 102 95-109 [place] 763680-06-15 09:03:00 Test Item Value Reference Range Interpretation Comments CO2 (test code = CO2) 23 24-32 [place] 763680-06-15 09:03:00 Test Item Value Reference Range Interpretation Comments AGAP (test code = AGAP) 13.6 10.0-20.0 [place] 763680-06-15 09:03:00 Test Item Value Reference Range Interpretation Comments Calcium Lvl (test code = Calcium Lvl) 10.1 8.5-10.5 [place] 763680-06-15 09:03:00 Test Item Value Reference Range Interpretation Comments eGFR (test code = eGFR) 71 [place] 789280-06-15 09:03:00 Test Item Value Reference Range Interpretation Comments RBC Morph (test code = Normal (12/11/19 4:03 RBC Morph) AM) [place] 789280-06-15 09:03:00 Test Item Value Reference Range Interpretation Comments Plt Morph (test code = Normal (12/11/19 4:03 Plt Morph) AM) [facility] CenterPwtfujjRYSDEOUCDV5186-43-65 09:03:00 Test Item Value Reference Range Interpretation Comments Segs (test code = Segs) 80.0 45.0-75.0 [facility] CenterWtxrpbdBXUWDSUJAZ3313-83-13 09:03:00 Test Item Value Reference Range Interpretation Comments Bands (test code = 9.0 See_Comment [Automat ed message] The Bands) system which ge nerated this result transmit bright reference range : <=11.0. The reference r chase was not used to interpr et this result as candice l/abnormal. [facility] CenterIsefucpTMZWWCKCPZ5753-38-16 09:03:00 Test Item Value Reference Range Interpretation Comments Lymphocytes (test code = Lymphocytes) 3.0 20.0-40.0 [facility] CenterBwbzevmBXCRJYVJLM0496-10-84 09:03:00 Test Item Value Reference Range Interpretation Comments Atypical Lymphs (test code = Atypical 0.0 Lymphs) [facility] CenterLghpdrqEYHPITOFVR7107-75-94 09:03:00 Test Item Value Reference Range Interpretation Comments Monocytes (test code = Monocytes) 8.0 2.0-12.0 [facility] CenterIrqfvyrDZVYKXCNZJ7390-00-11 09:03:00 Test Item Value Reference Range Interpretation Comments Neutrophils # (test code = Neutrophils 16.6 1.5-8.1 #) [facility] CenterYjhenmlEASIFZKSKN9748-88-95 09:03:00 Test Item Value Reference Range Interpretation Comments Lymphocytes # (test code = Lymphocytes 0.6 1.0-5.5 #) [facility] CenterEcujfnuRBTUTQKZMO6512-45-45 09:03:00 Test Item Value Reference Range Interpretation Comments Monocytes # (test code 1.5 See_Comment [Aut omated message] The = Monocytes #) system which generated this result tra nsmitted reference range : <=0.8. The reference r chase was not used to int erpret this result as normal/abnormal . [facility] CenterHmghufsGCNBMHESKJ0694-10-55 09:03:00 Test Item Value Reference Range Interpretation Comments WBC (test code = WBC) 18.6 3.7-10.4 [place] 789280-06-15 09:03:00 Test Item Value Reference Range Interpretation Comments RBC (test code = RBC) 3.49 4.20-5.40 [facility] CenterWsnftsaLWTTXGFQJV1844-40-80 09:03:00 Test Item Value Reference Range Interpretation Comments Hgb (test code = Hgb) 11.4 12.0-16.0 [place] [address]-06-15 09:03:00 Test Item Value Reference Range Interpretation Comments Hct (test code = Hct) 33.4 36.0-48.0 [place] [address]-06-15 09:03:00 Test Item Value Reference Range Interpretation Comments MCV (test code = MCV) 95.8 80.0-98.0 [place] [address]-06-15 09:03:00 Test Item Value Reference Range Interpretation Comments MCH (test code = MCH) 32.8 pg 27.0-31.0 [place] [address]-06-15 09:03:00 Test Item Value Reference Range Interpretation Comments MCHC (test code = MCHC) 34.3 32.0-36.0 [place] [address]-06-15 09:03:00 Test Item Value Reference Range Interpretation Comments RDW (test code = RDW) 14.2 11.5-14.5 [place] [address]-06-15 09:03:00 Test Item Value Reference Range Interpretation Comments Platelet (test code = Platelet) 351 133-450 [place] [address]-06-15 09:03:00 Test Item Value Reference Range Interpretation Comments MPV (test code = MPV) 8.0 7.4-10.4 [place] 763680-06-15 09:03:00 Test Item Value Reference Range Interpretation Comments Glucose Lvl (test code = Glucose Lvl) 127 70-99 [place] 763680-06-15 09:03:00 Test Item Value Reference Range Interpretation Comments BUN (test code = BUN) 8 7-22 [place] 763680-06-15 09:03:00 Test Item Value Reference Range Interpretation Comments Creatinine Lvl (test code = Creatinine 0.90 0.50-1.40 Lvl) [place] 763680-06-15 09:03:00 Test Item Value Reference Range Interpretation Comments Sodium Lvl (test code = Sodium Lvl) 135 135-145 [place] [address]-06-15 09:03:00 Test Item Value Reference Range Interpretation Comments Potassium Lvl (test code = Potassium 3.6 3.5-5.1 Lvl) [place] 763680-06-15 09:03:00 Test Item Value Reference Range Interpretation Comments Chloride Lvl (test code = Chloride Lvl) 102 95-109 [facility] ZDKIZ8781-62-60 09:03:00 Test Item Value Reference Range Interpretation Comments CO2 (test code = CO2) 23 24-32 [facility] [id number] 09:03:00 Test Item Value Reference Range Interpretation Comments AGAP (test code = AGAP) 13.6 10.0-20.0 [facility] XEBDV7610-69-72 09:03:00 Test Item Value Reference Range Interpretation Comments Calcium Lvl (test code = Calcium Lvl) 10.1 8.5-10.5 [facility] FCMGA0240-18-78 09:03:00 Test Item Value Reference Range Interpretation Comments eGFR (test code = eGFR) 71 [facility] CenterMsgkwrxHRJFHEDQAD6884-00-14 09:03:00 Test Item Value Reference Range Interpretation Comments RBC Morph (test code = Normal (12/11/19 4:03 RBC Morph) AM) [facility] CenterRpteerdVVQVVQTRGJ1940-56-06 09:03:00 Test Item Value Reference Range Interpretation Comments Plt Morph (test code = Normal (12/11/19 4:03 Plt Morph) AM) [facility] CenterGyspjivCPDESXFLZF3038-33-09 09:03:00 Test Item Value Reference Range Interpretation Comments Segs (test code = Segs) 80.0 45.0-75.0 [facility] CenterEjdtqwoXANJIHASBU1218-67-30 09:03:00 Test Item Value Reference Range Interpretation Comments Bands (test code = 9.0 See_Comment [Automat ed message] The Bands) system which ge nerated this result transmit bright reference range : <=11.0. The reference r chase was not used to interpr et this result as candice l/abnormal. [facility] CenterXrxxrrdMOCTBELZLL1528-72-30 09:03:00 Test Item Value Reference Range Interpretation Comments Lymphocytes (test code = Lymphocytes) 3.0 20.0-40.0 [facility] CenterBrhzjzhAMLMYCXYRI3313-87-08 09:03:00 Test Item Value Reference Range Interpretation Comments Atypical Lymphs (test code = Atypical 0.0 Lymphs) [facility] CenterSeilttaZXAKMLWYKI9169-11-37 09:03:00 Test Item Value Reference Range Interpretation Comments Monocytes (test code = Monocytes) 8.0 2.0-12.0 [place] [address]-06-15 09:03:00 Test Item Value Reference Range Interpretation Comments Neutrophils # (test code = Neutrophils 16.6 1.5-8.1 #) [facility] CenterVbmvomnBJHWPVYXGL8359-73-61 09:03:00 Test Item Value Reference Range Interpretation Comments Lymphocytes # (test code = Lymphocytes 0.6 1.0-5.5 #) [place] 789280-06-15 09:03:00 Test Item Value Reference Range Interpretation Comments Monocytes # (test code 1.5 See_Comment [Aut omated message] The = Monocytes #) system which generated this result tra nsmitted reference range : <=0.8. The reference r chase was not used to int erpret this result as normal/abnormal . [place] 789280-06-15 09:03:00 Test Item Value Reference Range Interpretation Comments WBC (test code = WBC) 18.6 3.7-10.4 [place] 789280-06-15 09:03:00 Test Item Value Reference Range Interpretation Comments RBC (test code = RBC) 3.49 4.20-5.40 [place] 789280-06-15 09:03:00 Test Item Value Reference Range Interpretation Comments Hgb (test code = Hgb) 11.4 12.0-16.0 [place] [address]-06-15 09:03:00 Test Item Value Reference Range Interpretation Comments Hct (test code = Hct) 33.4 36.0-48.0 [place] [address]-06-15 09:03:00 Test Item Value Reference Range Interpretation Comments MCV (test code = MCV) 95.8 80.0-98.0 [place] [address]-06-15 09:03:00 Test Item Value Reference Range Interpretation Comments MCH (test code = MCH) 32.8 pg 27.0-31.0 [place] [address]-06-15 09:03:00 Test Item Value Reference Range Interpretation Comments MCHC (test code = MCHC) 34.3 32.0-36.0 [place] [address]-06-15 09:03:00 Test Item Value Reference Range Interpretation Comments RDW (test code = RDW) 14.2 11.5-14.5 [place] [address]-06-15 09:03:00 Test Item Value Reference Range Interpretation Comments Platelet (test code = Platelet) 351 133-450 [place] 789280-06-15 09:03:00 Test Item Value Reference Range Interpretation Comments MPV (test code = MPV) 8.0 7.4-10.4 [place] 763680-06-15 09:03:00 Test Item Value Reference Range Interpretation Comments Glucose Lvl (test code = Glucose Lvl) 127 70-99 [place] 763680-06-15 09:03:00 Test Item Value Reference Range Interpretation Comments BUN (test code = BUN) 8 7-22 [place] 763680-06-15 09:03:00 Test Item Value Reference Range Interpretation Comments Creatinine Lvl (test code = Creatinine 0.90 0.50-1.40 Lvl) [place] 763680-06-15 09:03:00 Test Item Value Reference Range Interpretation Comments Sodium Lvl (test code = Sodium Lvl) 135 135-145 [place] 763680-06-15 09:03:00 Test Item Value Reference Range Interpretation Comments Potassium Lvl (test code = Potassium 3.6 3.5-5.1 Lvl) [place] 763680-06-15 09:03:00 Test Item Value Reference Range Interpretation Comments Chloride Lvl (test code = Chloride Lvl) 102 95-109 [facility]2020-06-15 09:03:00 Test Item Value Reference Range Interpretation Comments CO2 (test code = CO2) 23 24-32 [place] 763680-06-15 09:03:00 Test Item Value Reference Range Interpretation Comments AGAP (test code = AGAP) 13.6 10.0-20.0 [place] [address]-06-15 09:03:00 Test Item Value Reference Range Interpretation Comments Calcium Lvl (test code = Calcium Lvl) 10.1 8.5-10.5 [place] 763680-06-15 09:03:00 Test Item Value Reference Range Interpretation Comments eGFR (test code = eGFR) 71 [place] 789280-06-15 09:03:00 Test Item Value Reference Range Interpretation Comments RBC Morph (test code = Normal (12/11/19 4:03 RBC Morph) AM) [place] 789280-06-15 09:03:00 Test Item Value Reference Range Interpretation Comments Plt Morph (test code = Normal (12/11/19 4:03 Plt Morph) AM) [place] 789280-06-15 09:03:00 Test Item Value Reference Range Interpretation Comments Segs (test code = Segs) 80.0 45.0-75.0 [place] 789280-06-15 09:03:00 Test Item Value Reference Range Interpretation Comments Bands (test code = Bands) 9.0 <=11.0 [place] 789280-06-15 09:03:00 Test Item Value Reference Range Interpretation Comments Lymphocytes (test code = Lymphocytes) 3.0 20.0-40.0 [place] 789280-06-15 09:03:00 Test Item Value Reference Range Interpretation Comments Atypical Lymphs (test code = Atypical 0.0 Lymphs) [place] 789280-06-15 09:03:00 Test Item Value Reference Range Interpretation Comments Monocytes (test code = Monocytes) 8.0 2.0-12.0 [place] 789280-06-15 09:03:00 Test Item Value Reference Range Interpretation Comments Neutrophils # (test code = Neutrophils 16.6 1.5-8.1 #) [facility]xykhivARVDEDDKXV1499[facility]74-[facility]:03:00 Test Item Value Reference Range Interpretation Comments Lymphocytes # (test code = Lymphocytes 0.6 1.0-5.5 #) [place] 789280-06-15 09:03:00 Test Item Value Reference Range Interpretation Comments Monocytes # (test code = Monocytes #) 1.5 <=0.8 [place] 789280-06-15 09:03:00 Test Item Value Reference Range Interpretation Comments WBC (test code = WBC) 18.6 3.7-10.4 [place] [address]-06-15 09:03:00 Test Item Value Reference Range Interpretation Comments RBC (test code = RBC) 3.49 4.20-5.40 [place] [address]-06-15 09:03:00 Test Item Value Reference Range Interpretation Comments Hgb (test code = Hgb) 11.4 12.0-16.0 [place] [address]-06-15 09:03:00 Test Item Value Reference Range Interpretation Comments Hct (test code = Hct) 33.4 36.0-48.0 [place] 789280-06-15 09:03:00 Test Item Value Reference Range Interpretation Comments MCV (test code = MCV) 95.8 80.0-98.0 [place] [address]-06-15 09:03:00 Test Item Value Reference Range Interpretation Comments MCH (test code = MCH) 32.8 pg 27.0-31.0 [place] 789280-06-15 09:03:00 Test Item Value Reference Range Interpretation Comments MCHC (test code = MCHC) 34.3 32.0-36.0 [place] [address]-06-15 09:03:00 Test Item Value Reference Range Interpretation Comments RDW (test code = RDW) 14.2 11.5-14.5 [place] [address]-06-15 09:03:00 Test Item Value Reference Range Interpretation Comments Platelet (test code = Platelet) 351 133-450 [place] 789280-06-15 09:03:00 Test Item Value Reference Range Interpretation Comments MPV (test code = MPV) 8.0 7.4-10.4 [facility]2020-06-14 09:44:00 Test Item Value Reference Range Interpretation Comments Glucose Lvl (test code = Glucose Lvl) 197 70-99 [place] 763680-06-14 09:44:00 Test Item Value Reference Range Interpretation Comments BUN (test code = BUN) 11 7-22 [place] 763680-06-14 09:44:00 Test Item Value Reference Range Interpretation Comments Creatinine Lvl (test code = Creatinine 0.89 0.50-1.40 Lvl) [facility]2020-06-14 09:44:00 Test Item Value Reference Range Interpretation Comments Sodium Lvl (test code = Sodium Lvl) 133 135-145 [place] 763680-06-14 09:44:00 Test Item Value Reference Range Interpretation Comments Potassium Lvl (test code = Potassium 3.6 3.5-5.1 Lvl) [place] 763680-06-14 09:44:00 Test Item Value Reference Range Interpretation Comments Chloride Lvl (test code = Chloride Lvl) 103 95-109 [place] 763680-06-14 09:44:00 Test Item Value Reference Range Interpretation Comments CO2 (test code = CO2) 21 24-32 [place] 763680-06-14 09:44:00 Test Item Value Reference Range Interpretation Comments Calcium Lvl (test code = Calcium Lvl) 9.4 8.5-10.5 [place] 763680-06-14 09:44:00 Test Item Value Reference Range Interpretation Comments AGAP (test code = AGAP) 12.6 10.0-20.0 [facility]2020-06-14 09:44:00 Test Item Value Reference Range Interpretation Comments eGFR (test code = eGFR) 71 [facility] CenterVdgglifPLKYRWTCXA8499-90-54 09:44:00 Test Item Value Reference Range Interpretation Comments WBC (test code = WBC) 17.9 3.7-10.4 [place] [address]-06-14 09:44:00 Test Item Value Reference Range Interpretation Comments RBC (test code = RBC) 3.55 4.20-5.40 [place] 789280-06-14 09:44:00 Test Item Value Reference Range Interpretation Comments Hgb (test code = Hgb) 11.5 12.0-16.0 [place] [address]-06-14 09:44:00 Test Item Value Reference Range Interpretation Comments Hct (test code = Hct) 34.0 36.0-48.0 [place] [address]-06-14 09:44:00 Test Item Value Reference Range Interpretation Comments MCV (test code = MCV) 95.8 80.0-98.0 [place] 789280-06-14 09:44:00 Test Item Value Reference Range Interpretation Comments MCH (test code = MCH) 32.4 pg 27.0-31.0 [place] [address]-06-14 09:44:00 Test Item Value Reference Range Interpretation Comments MCHC (test code = MCHC) 33.8 32.0-36.0 [place] [address]-06-14 09:44:00 Test Item Value Reference Range Interpretation Comments RDW (test code = RDW) 14.3 11.5-14.5 [place] [address]-06-14 09:44:00 Test Item Value Reference Range Interpretation Comments Platelet (test code = Platelet) 367 133-450 [facility] CenterEtmyavoOONQOZOKAB5460-25-18 09:44:00 Test Item Value Reference Range Interpretation Comments MPV (test code = MPV) 8.1 7.4-10.4 [facility] CenterWjvzzohUJEUCVUDVK1399-46-74 09:44:00 Test Item Value Reference Range Interpretation Comments Segs (test code = Segs) 89.8 45.0-75.0 [facility] CenterUyccvojQJSCZMGLFR1081-29-47 09:44:00 Test Item Value Reference Range Interpretation Comments Lymphocytes (test code = Lymphocytes) 4.5 20.0-40.0 [facility] CenterIstpoquRSPIUPXJZU4414-20-37 09:44:00 Test Item Value Reference Range Interpretation Comments Monocytes (test code = Monocytes) 4.6 2.0-12.0 [facility] CenterQxirhoxAFQHCVQGOF9395-50-81 09:44:00 Test Item Value Reference Range Interpretation Comments Eosinophils (test code = 0.5 See_Comment [A utomated message] The Eosinophils) system which ge nerated this result tra nsmitted reference range : <=4.0. The reference r chase was not used to int erpret this result as normal/abnormal . [facility] CenterEoxalgcTMJRIFPUZE6360-77-23 09:44:00 Test Item Value Reference Range Interpretation Comments Basophils (test code = 0.6 See_Comment [Aut omated message] The Basophils) system which ge nerated this result tra nsmitted reference range : <=1.0. The reference r chase was not used to int erpret this result as normal/abnormal . [facility] CenterGniuxjoFWMJPFNWLM1208-00-43 09:44:00 Test Item Value Reference Range Interpretation Comments Neutrophils # (test code = Neutrophils 16.0 1.5-8.1 #) [facility] CenterQishsuhATDSUUTCZX8605-73-08 09:44:00 Test Item Value Reference Range Interpretation Comments Lymphocytes # (test code = Lymphocytes 0.8 1.0-5.5 #) [facility] CenterBiviaeiRDTITASILY2202-06-32 09:44:00 Test Item Value Reference Range Interpretation Comments Monocytes # (test code 0.8 See_Comment [Aut omated message] The = Monocytes #) system which generated this result tra nsmitted reference range : <=0.8. The reference r chase was not used to int erpret this result as normal/abnormal . [place] 789280-06-14 09:44:00 Test Item Value Reference Range Interpretation Comments Eosinophils # (test code 0.1 See_Comment [A utomated message] The = Eosinophils #) system whic h generated this result tra nsmitted reference range : <=0.5. The reference r chase was not used to int erpret this result as normal/abnormal . [facility] CenterProclofWXTVVRISMQ3619-05-86 09:44:00 Test Item Value Reference Range Interpretation Comments Basophils # (test code 0.1 See_Comment [Aut omated message] The = Basophils #) system which generated this result tra nsmitted reference range : <=0.2. The reference r chase was not used to int erpret this result as normal/abnormal . [facility] BZYRW5894-86-30 09:44:00 Test Item Value Reference Range Interpretation Comments Glucose Lvl (test code = Glucose Lvl) 197 70-99 [facility] GGODZ1403-81-83 09:44:00 Test Item Value Reference Range Interpretation Comments BUN (test code = BUN) 11 7-22 [facility] NFHOA0524-93-43 09:44:00 Test Item Value Reference Range Interpretation Comments Creatinine Lvl (test code = Creatinine 0.89 0.50-1.40 Lvl) [facility] EYDMA2098-04-17 09:44:00 Test Item Value Reference Range Interpretation Comments Sodium Lvl (test code = Sodium Lvl) 133 135-145 [facility] XJRLW1623-00-00 09:44:00 Test Item Value Reference Range Interpretation Comments Potassium Lvl (test code = Potassium 3.6 3.5-5.1 Lvl) [facility] SRFMP8127-21-58 09:44:00 Test Item Value Reference Range Interpretation Comments Chloride Lvl (test code = Chloride Lvl) 103 95-109 [facility] FMLOT3670-19-77 09:44:00 Test Item Value Reference Range Interpretation Comments CO2 (test code = CO2) 21 24-32 [facility] MDMYC7025-12-65 09:44:00 Test Item Value Reference Range Interpretation Comments Calcium Lvl (test code = Calcium Lvl) 9.4 8.5-10.5 [facility] [id number] 09:44:00 Test Item Value Reference Range Interpretation Comments AGAP (test code = AGAP) 12.6 10.0-20.0 [facility] WKVKO1925-97-93 09:44:00 Test Item Value Reference Range Interpretation Comments eGFR (test code = eGFR) [address] [facility] CenterOwdyysxNKFIFYHZFU4542-99-61 09:44:00 Test Item Value Reference Range Interpretation Comments WBC (test code = WBC) 17.9 3.7-10.[address] [facility] CenterZhnoondSUNUYNFWEO6916-01-56 09:44:00 Test Item Value Reference Range Interpretation Comments RBC (test code = RBC) 3.55 4.20-5.[address] [facility] CenterGelmyedTPXQKSBOAN6517-57-54 09:44:00 Test Item Value Reference Range Interpretation Comments Hgb (test code = Hgb) 11.5 12.0-16.[address] [facility] CenterCqfeaszEJGWRSIDGR7479-52-54 09:44:00 Test Item Value Reference Range Interpretation Comments Hct (test code = Hct) 34.0 36.0-48.0 [facility]wpDGEOBIUMKK8624-96-[facility] 09:44:00 Test Item Value Reference Range Interpretation Comments MCV (test code = MCV) 95.8 80.0-98.[address] [facility] CenterUzhnnjkDBAYTSRBDD4670-53-26 09:44:00 Test Item Value Reference Range Interpretation Comments MCH (test code = MCH) 32.4 pg 27.0-31.[address] [facility] CenterWuomvumYUCTFOBMUK1851-06-77 09:44:00 Test Item Value Reference Range Interpretation Comments MCHC (test code = MCHC) 33.8 32.0-36.0 [facility]BhvsuqaLQQQAMVRWL5282-50-36 09:44:00 Test Item Value Reference Range Interpretation Comments RDW (test code = RDW) 14.3 11.5-14.[address] [facility] CenterRwfyzmiHKINIVFOSS2820-80-78 09:44:00 Test Item Value Reference Range Interpretation Comments Platelet (test code = Platelet) 367 133-[address] [facility] CenterRwuebxyLHELRWTWFH5862-54-78 09:44:00 Test Item Value Reference Range Interpretation Comments MPV (test code = MPV) 8.1 7.4-10.4 [facility] HospitalZiaxaarEHFYKWEQHD0537-04-96 09:44:00 Test Item Value Reference Range Interpretation Comments Segs (test code = Segs) 89.8 45.0-75.0 [place] 789280-06-14 09:44:00 Test Item Value Reference Range Interpretation Comments Lymphocytes (test code = Lymphocytes) 4.5 20.0-40.0 [facility] CenterNgynbohYNQXOQDGFT4478-84-32 09:44:00 Test Item Value Reference Range Interpretation Comments Monocytes (test code = Monocytes) 4.6 2.0-12.0 [facility] CenterUcgrqrrKIIYQFCGJR2317-41-53 09:44:00 Test Item Value Reference Range Interpretation Comments Eosinophils (test code = 0.5 See_Comment [A utomated message] The Eosinophils) system which ge nerated this result tra nsmitted reference range : <=4.0. The reference r chase was not used to int erpret this result as normal/abnormal . [facility] CenterIsbhnrdVNGDYMEARS2711-31-54 09:44:00 Test Item Value Reference Range Interpretation Comments Basophils (test code = 0.6 See_Comment [Aut omated message] The Basophils) system which ge nerated this result tra nsmitted reference range : <=1.0. The reference r chase was not used to int erpret this result as normal/abnormal . [facility] CenterAqjkbisMUIWPPIVYH3510-51-29 09:44:00 Test Item Value Reference Range Interpretation Comments Neutrophils # (test code = Neutrophils 16.0 1.5-8.1 #) [facility] CenterLvnjznlUWEVHRVHBW6417-85-81 09:44:00 Test Item Value Reference Range Interpretation Comments Lymphocytes # (test code = Lymphocytes 0.8 1.0-5.5 #) [facility] CenterSlngyzaZWDKKQHQYO9590-32-45 09:44:00 Test Item Value Reference Range Interpretation Comments Monocytes # (test code 0.8 See_Comment [Aut omated message] The = Monocytes #) system which generated this result tra nsmitted reference range : <=0.8. The reference r chase was not used to int erpret this result as normal/abnormal . [facility] CenterWzumsazBFRKRCKXCN3639-11-56 09:44:00 Test Item Value Reference Range Interpretation Comments Eosinophils # (test code 0.1 See_Comment [A utomated message] The = Eosinophils #) system whic h generated this result tra nsmitted reference range : <=0.5. The reference r chase was not used to int erpret this result as normal/abnormal . [facility] CenterHdcaawhFMGGEUBILF6240-84-47 09:44:00 Test Item Value Reference Range Interpretation Comments Basophils # (test code 0.1 See_Comment [Aut omated message] The = Basophils #) system which generated this result tra nsmitted reference range : <=0.2. The reference r chase was not used to int erpret this result as normal/abnormal . [facility]2020-06-14 09:44:00 Test Item Value Reference Range Interpretation Comments Glucose Lvl (test code = Glucose Lvl) 197 70-99 [facility]2020-06-14 09:44:00 Test Item Value Reference Range Interpretation Comments BUN (test code = BUN) 11 7-22 [place] [address]-06-14 09:44:00 Test Item Value Reference Range Interpretation Comments Creatinine Lvl (test code = Creatinine 0.89 0.50-1.40 Lvl) [facility]2020-06-14 09:44:00 Test Item Value Reference Range Interpretation Comments Sodium Lvl (test code = Sodium Lvl) 133 135-145 [place] 763680-06-14 09:44:00 Test Item Value Reference Range Interpretation Comments Potassium Lvl (test code = Potassium 3.6 3.5-5.1 Lvl) [facility]2020-06-14 09:44:00 Test Item Value Reference Range Interpretation Comments Chloride Lvl (test code = Chloride Lvl) 103 95-109 [place] 763680-06-14 09:44:00 Test Item Value Reference Range Interpretation Comments CO2 (test code = CO2) 21 24-32 [place] 763680-06-14 09:44:00 Test Item Value Reference Range Interpretation Comments Calcium Lvl (test code = Calcium Lvl) 9.4 8.5-10.5 [place] 763680-06-14 09:44:00 Test Item Value Reference Range Interpretation Comments AGAP (test code = AGAP) 12.6 10.0-20.0 [place] 763680-06-14 09:44:00 Test Item Value Reference Range Interpretation Comments eGFR (test code = eGFR) 71 [facility] CenterRevgdauWQPQWSJVFG9439-17-15 09:44:00 Test Item Value Reference Range Interpretation Comments WBC (test code = WBC) 17.9 3.7-10.4 [facility] CenterLakwbfzEABSWIVWSC6750-76-57 09:44:00 Test Item Value Reference Range Interpretation Comments RBC (test code = RBC) 3.55 4.20-5.40 [place] 789280-06-14 09:44:00 Test Item Value Reference Range Interpretation Comments Hgb (test code = Hgb) 11.5 12.0-16.0 [place] [address]-06-14 09:44:00 Test Item Value Reference Range Interpretation Comments Hct (test code = Hct) 34.0 36.0-48.0 [facility] CenterSjufyyeWFJWIHOUMX3832-80-53 09:44:00 Test Item Value Reference Range Interpretation Comments MCV (test code = MCV) 95.8 80.0-98.0 [facility] CenterZzqzcrgTIOYDJKYXN5413-16-56 09:44:00 Test Item Value Reference Range Interpretation Comments MCH (test code = MCH) 32.4 pg 27.0-31.0 [facility] CenterUbzuvtaNHZCNLQCPX0069-67-87 09:44:00 Test Item Value Reference Range Interpretation Comments MCHC (test code = MCHC) 33.8 32.0-36.0 [facility] CenterRomrwkiFQWXQDKYNE0212-42-86 09:44:00 Test Item Value Reference Range Interpretation Comments RDW (test code = RDW) 14.3 11.5-14.5 [facility] CenterVizahzyZKVCVVHNTV5126-01-92 09:44:00 Test Item Value Reference Range Interpretation Comments Platelet (test code = Platelet) 367 133-450 [facility] CenterCictlfcECTQRGRPUP4538-91-74 09:44:00 Test Item Value Reference Range Interpretation Comments MPV (test code = MPV) 8.1 7.4-10.4 [facility] CenterDmxpctmYOAQHVJLJP5738-26-90 09:44:00 Test Item Value Reference Range Interpretation Comments Segs (test code = Segs) 89.8 45.0-75.0 [facility] CenterGiqydxsZEHAWGTDQD4499-55-57 09:44:00 Test Item Value Reference Range Interpretation Comments Lymphocytes (test code = Lymphocytes) 4.5 20.0-40.0 [place]89280-06-14 09:44:00 Test Item Value Reference Range Interpretation Comments Monocytes (test code = Monocytes) 4.6 2.0-12.0 [facility] CenterNwdvvejRYXLXPRBLV5921-87-45 09:44:00 Test Item Value Reference Range Interpretation Comments Eosinophils (test code = 0.5 See_Comment [A utomated message] The Eosinophils) system which ge nerated this result tra nsmitted reference range : <=4.0. The reference r chase was not used to int erpret this result as normal/abnormal . [facility] CenterKnltbwwEMOMORREXK7664-64-53 09:44:00 Test Item Value Reference Range Interpretation Comments Basophils (test code = 0.6 See_Comment [Aut omated message] The Basophils) system which ge nerated this result tra nsmitted reference range : <=1.0. The reference r chase was not used to int erpret this result as normal/abnormal . [place]89280-06-14 09:44:00 Test Item Value Reference Range Interpretation Comments Neutrophils # (test code = Neutrophils 16.0 1.5-8.1 #) [facility] CenterZolhfsdBAIGZKWHTW6962-38-10 09:44:00 Test Item Value Reference Range Interpretation Comments Lymphocytes # (test code = Lymphocytes 0.8 1.0-5.5 #) [place] 789280-06-14 09:44:00 Test Item Value Reference Range Interpretation Comments Monocytes # (test code 0.8 See_Comment [Aut omated message] The = Monocytes #) system which generated this result tra nsmitted reference range : <=0.8. The reference r chase was not used to int erpret this result as normal/abnormal . [facility] CenterLnbmlopGBMRHDRSXA5092-26-22 09:44:00 Test Item Value Reference Range Interpretation Comments Eosinophils # (test code 0.1 See_Comment [A utomated message] The = Eosinophils #) system whic h generated this result tra nsmitted reference range : <=0.5. The reference r chase was not used to int erpret this result as normal/abnormal . [facility] CenterPkfyhfjYNLNYNTZJJ2791-44-62 09:44:00 Test Item Value Reference Range Interpretation Comments Basophils # (test code 0.1 See_Comment [Aut omated message] The = Basophils #) system which generated this result tra nsmitted reference range : <=0.2. The reference r chase was not used to int erpret this result as normal/abnormal . [facility]2020-06-14 09:44:00 Test Item Value Reference Range Interpretation Comments Glucose Lvl (test code = Glucose Lvl) 197 70-99 [place] 763680-06-14 09:44:00 Test Item Value Reference Range Interpretation Comments BUN (test code = BUN) 11 7-22 [place] 763680-06-14 09:44:00 Test Item Value Reference Range Interpretation Comments Creatinine Lvl (test code = Creatinine 0.89 0.50-1.40 Lvl) [place] 763680-06-14 09:44:00 Test Item Value Reference Range Interpretation Comments Sodium Lvl (test code = Sodium Lvl) 133 135-145 [place] [address]-06-14 09:44:00 Test Item Value Reference Range Interpretation Comments Potassium Lvl (test code = Potassium 3.6 3.5-5.1 Lvl) [place] 763680-06-14 09:44:00 Test Item Value Reference Range Interpretation Comments Chloride Lvl (test code = Chloride Lvl) 103 95-109 [place] 763680-06-14 09:44:00 Test Item Value Reference Range Interpretation Comments CO2 (test code = CO2) 21 24-32 [place] [address]-06-14 09:44:00 Test Item Value Reference Range Interpretation Comments Calcium Lvl (test code = Calcium Lvl) 9.4 8.5-10.5 [place] 763680-06-14 09:44:00 Test Item Value Reference Range Interpretation Comments AGAP (test code = AGAP) 12.6 10.0-20.0 [place] 763680-06-14 09:44:00 Test Item Value Reference Range Interpretation Comments eGFR (test code = eGFR) 71 [place] 789280-06-14 09:44:00 Test Item Value Reference Range Interpretation Comments WBC (test code = WBC) 17.9 3.7-10.4 [place] [address]-06-14 09:44:00 Test Item Value Reference Range Interpretation Comments RBC (test code = RBC) 3.55 4.20-5.40 [place] [address]-06-14 09:44:00 Test Item Value Reference Range Interpretation Comments Hgb (test code = Hgb) 11.5 12.0-16.0 [place] [address]-06-14 09:44:00 Test Item Value Reference Range Interpretation Comments Hct (test code = Hct) 34.0 36.0-48.0 [place] 789280-06-14 09:44:00 Test Item Value Reference Range Interpretation Comments MCV (test code = MCV) 95.8 80.0-98.0 [place] [address]-06-14 09:44:00 Test Item Value Reference Range Interpretation Comments MCH (test code = MCH) 32.4 pg 27.0-31.0 [facility] CenterJisrizgQNTVHKSOHU6819-12-34 09:44:00 Test Item Value Reference Range Interpretation Comments MCHC (test code = MCHC) 33.8 32.0-36.0 [place] 789280-06-14 09:44:00 Test Item Value Reference Range Interpretation Comments RDW (test code = RDW) 14.3 11.5-14.5 [place] [address]-06-14 09:44:00 Test Item Value Reference Range Interpretation Comments Platelet (test code = Platelet) 367 133-450 [facility] CenterGcwivxuEXDLTKRFQQ5783-51-69 09:44:00 Test Item Value Reference Range Interpretation Comments MPV (test code = MPV) 8.1 7.4-10.4 [facility] CenterDyuojywMXLLJNGHAZ2698-83-54 09:44:00 Test Item Value Reference Range Interpretation Comments Segs (test code = Segs) 89.8 45.0-75.0 [facility] CenterCmutdwsHFKGSGQDII7533-29-93 09:44:00 Test Item Value Reference Range Interpretation Comments Lymphocytes (test code = Lymphocytes) 4.5 20.0-40.0 [place] 789280-06-14 09:44:00 Test Item Value Reference Range Interpretation Comments Monocytes (test code = Monocytes) 4.6 2.0-12.0 [place] [address]-06-14 09:44:00 Test Item Value Reference Range Interpretation Comments Eosinophils (test code = 0.5 See_Comment [A utomated message] The Eosinophils) system which ge nerated this result tra nsmitted reference range : <=4.0. The reference r chase was not used to int erpret this result as normal/abnormal . [facility] CenterMhxvzksMOGZRVPHJK4720-74-41 09:44:00 Test Item Value Reference Range Interpretation Comments Basophils (test code = 0.6 See_Comment [Aut omated message] The Basophils) system which ge nerated this result tra nsmitted reference range : <=1.0. The reference r chase was not used to int erpret this result as normal/abnormal . [facility] CenterYucxqljDYDGESGCOT5350-08-48 09:44:00 Test Item Value Reference Range Interpretation Comments Neutrophils # (test code = Neutrophils 16.0 1.5-8.1 #) [facility] CenterDgmgwivALKWBTEYPQ5260-57-68 09:44:00 Test Item Value Reference Range Interpretation Comments Lymphocytes # (test code = Lymphocytes 0.8 1.0-5.5 #) [facility] CenterWlrfffqBLYQOQNKXP9890-40-05 09:44:00 Test Item Value Reference Range Interpretation Comments Monocytes # (test code 0.8 See_Comment [Aut omated message] The = Monocytes #) system which generated this result tra nsmitted reference range : <=0.8. The reference r chase was not used to int erpret this result as normal/abnormal . [facility] CenterGifpbnzAFRAGETTJP6732-49-69 09:44:00 Test Item Value Reference Range Interpretation Comments Eosinophils # (test code 0.1 See_Comment [A utomated message] The = Eosinophils #) system whic h generated this result tra nsmitted reference range : <=0.5. The reference r chase was not used to int erpret this result as normal/abnormal . [facility]XwfspjgBLSSKQEDAD2969-17-11 09:44:00 Test Item Value Reference Range Interpretation Comments Basophils # (test code 0.1 See_Comment [Aut omated message] The = Basophils #) system which generated this result tra nsmitted reference range : <=0.2. The reference r chase was not used to int erpret this result as normal/abnormal . [facility] [id number] 09:44:00 Test Item Value Reference Range Interpretation Comments Glucose Lvl (test code = Glucose Lvl) 197 70-99 [facility] [id number] 09:44:00 Test Item Value Reference Range Interpretation Comments BUN (test code = BUN) 11 7-22 [facility] [id number] 09:44:00 Test Item Value Reference Range Interpretation Comments Creatinine Lvl (test code = Creatinine 0.89 0.50-1.40 Lvl) [place] 763680-06-14 09:44:00 Test Item Value Reference Range Interpretation Comments Sodium Lvl (test code = Sodium Lvl) 133 135-145 [place] 763680-06-14 09:44:00 Test Item Value Reference Range Interpretation Comments Potassium Lvl (test code = Potassium 3.6 3.5-5.1 Lvl) [place] 763680-06-14 09:44:00 Test Item Value Reference Range Interpretation Comments Chloride Lvl (test code = Chloride Lvl) 103 95-109 [place] [address]-06-14 09:44:00 Test Item Value Reference Range Interpretation Comments CO2 (test code = CO2) 21 24-32 [place] 763680-06-14 09:44:00 Test Item Value Reference Range Interpretation Comments Calcium Lvl (test code = Calcium Lvl) 9.4 8.5-10.5 [place] 763680-06-14 09:44:00 Test Item Value Reference Range Interpretation Comments AGAP (test code = AGAP) 12.6 10.0-20.0 [place] 763680-06-14 09:44:00 Test Item Value Reference Range Interpretation Comments eGFR (test code = eGFR) 71 [place] 789280-06-14 09:44:00 Test Item Value Reference Range Interpretation Comments WBC (test code = WBC) 17.9 3.7-10.4 [place] [address]-06-14 09:44:00 Test Item Value Reference Range Interpretation Comments RBC (test code = RBC) 3.55 4.20-5.40 [place] 789280-06-14 09:44:00 Test Item Value Reference Range Interpretation Comments Hgb (test code = Hgb) 11.5 12.0-16.0 [place] [address]-06-14 09:44:00 Test Item Value Reference Range Interpretation Comments Hct (test code = Hct) 34.0 36.0-48.0 [place] [address]-06-14 09:44:00 Test Item Value Reference Range Interpretation Comments MCV (test code = MCV) 95.8 80.0-98.0 [place] [address]-06-14 09:44:00 Test Item Value Reference Range Interpretation Comments MCH (test code = MCH) 32.4 pg 27.0-31.0 [facility]XwpbljmVPWXNTKGSJ2806-61-60 09:44:00 Test Item Value Reference Range Interpretation Comments MCHC (test code = MCHC) 33.8 32.0-36.0 [facility] CenterIazzmknAFPKDKWCPQ2961-30-24 09:44:00 Test Item Value Reference Range Interpretation Comments RDW (test code = RDW) 14.3 11.5-14.5 [facility] CenterQsklkcmERWJNMGZZK0657-40-23 09:44:00 Test Item Value Reference Range Interpretation Comments Platelet (test code = Platelet) 367 133-450 [facility] CenterUpzsxakZPDYQRDZOY0220-10-76 09:44:00 Test Item Value Reference Range Interpretation Comments MPV (test code = MPV) 8.1 7.4-10.4 [facility] CenterXelnjmfTLUASHXTMX1675-39-55 09:44:00 Test Item Value Reference Range Interpretation Comments Segs (test code = Segs) 89.8 45.0-75.0 [facility] CenterKldwhxfGNKWUGZAGE2207-58-69 09:44:00 Test Item Value Reference Range Interpretation Comments Lymphocytes (test code = Lymphocytes) 4.5 20.0-40.0 [facility] CenterSnwpnpjPQLZLQUWSB2791-65-78 09:44:00 Test Item Value Reference Range Interpretation Comments Monocytes (test code = Monocytes) 4.6 2.0-12.0 [facility] CenterIblhdouDDVPMZYWVO9135-78-40 09:44:00 Test Item Value Reference Range Interpretation Comments Eosinophils (test code = 0.5 See_Comment [A utomated message] The Eosinophils) system which ge nerated this result tra nsmitted reference range : <=4.0. The reference r chase was not used to int erpret this result as normal/abnormal . [facility] CenterGsncewlWVXFKNFPZP3861-98-01 09:44:00 Test Item Value Reference Range Interpretation Comments Basophils (test code = 0.6 See_Comment [Aut omated message] The Basophils) system which ge nerated this result tra nsmitted reference range : <=1.0. The reference r chase was not used to int erpret this result as normal/abnormal . [facility] CenterBklvffqQODKKFLDSY6281-99-50 09:44:00 Test Item Value Reference Range Interpretation Comments Neutrophils # (test code = Neutrophils 16.0 1.5-8.1 #) [place] 789280-06-14 09:44:00 Test Item Value Reference Range Interpretation Comments Lymphocytes # (test code = Lymphocytes 0.8 1.0-5.5 #) [place] 789280-06-14 09:44:00 Test Item Value Reference Range Interpretation Comments Monocytes # (test code 0.8 See_Comment [Aut omated message] The = Monocytes #) system which generated this result tra nsmitted reference range : <=0.8. The reference r chase was not used to int erpret this result as normal/abnormal . [place] [address]-06-14 09:44:00 Test Item Value Reference Range Interpretation Comments Eosinophils # (test code 0.1 See_Comment [A utomated message] The = Eosinophils #) system whic h generated this result tra nsmitted reference range : <=0.5. The reference r chase was not used to int erpret this result as normal/abnormal . [place] [address]-06-14 09:44:00 Test Item Value Reference Range Interpretation Comments Basophils # (test code 0.1 See_Comment [Aut omated message] The = Basophils #) system which generated this result tra nsmitted reference range : <=0.2. The reference r chase was not used to int erpret this result as normal/abnormal . [place] 763680-06-14 09:44:00 Test Item Value Reference Range Interpretation Comments Glucose Lvl (test code = Glucose Lvl) 197 70-99 [place] 763680-06-14 09:44:00 Test Item Value Reference Range Interpretation Comments BUN (test code = BUN) 11 7-22 [place] 763680-06-14 09:44:00 Test Item Value Reference Range Interpretation Comments Creatinine Lvl (test code = Creatinine 0.89 0.50-1.40 Lvl) [place] 763680-06-14 09:44:00 Test Item Value Reference Range Interpretation Comments Sodium Lvl (test code = Sodium Lvl) 133 135-145 [place] [address]-06-14 09:44:00 Test Item Value Reference Range Interpretation Comments Potassium Lvl (test code = Potassium 3.6 3.5-5.1 Lvl) [place] 763680-06-14 09:44:00 Test Item Value Reference Range Interpretation Comments Chloride Lvl (test code = Chloride Lvl) 103 95-109 [place] 763680-06-14 09:44:00 Test Item Value Reference Range Interpretation Comments CO2 (test code = CO2) 21 24-32 [place] [address]-06-14 09:44:00 Test Item Value Reference Range Interpretation Comments Calcium Lvl (test code = Calcium Lvl) 9.4 8.5-10.5 [place] 763680-06-14 09:44:00 Test Item Value Reference Range Interpretation Comments AGAP (test code = AGAP) 12.6 10.0-20.0 [place] 763680-06-14 09:44:00 Test Item Value Reference Range Interpretation Comments eGFR (test code = eGFR) 71 [facility] CenterPqzbbhlXZINUBJBGD4096-12-84 09:44:00 Test Item Value Reference Range Interpretation Comments WBC (test code = WBC) 17.9 3.7-10.4 [place] 789280-06-14 09:44:00 Test Item Value Reference Range Interpretation Comments RBC (test code = RBC) 3.55 4.20-5.40 [facility] CenterFwbtnjfLIGVEJCAAY2109-65-54 09:44:00 Test Item Value Reference Range Interpretation Comments Hgb (test code = Hgb) 11.5 12.0-16.0 [facility] CenterCvggbwvZQBSKCXGHI6237-27-61 09:44:00 Test Item Value Reference Range Interpretation Comments Hct (test code = Hct) 34.0 36.0-48.0 [place] [address]-06-14 09:44:00 Test Item Value Reference Range Interpretation Comments MCV (test code = MCV) 95.8 80.0-98.0 [place] [address]-06-14 09:44:00 Test Item Value Reference Range Interpretation Comments MCH (test code = MCH) 32.4 pg 27.0-31.0 [place] [address]-06-14 09:44:00 Test Item Value Reference Range Interpretation Comments MCHC (test code = MCHC) 33.8 32.0-36.0 [place] [address]-06-14 09:44:00 Test Item Value Reference Range Interpretation Comments RDW (test code = RDW) 14.3 11.5-14.5 [place] 789280-06-14 09:44:00 Test Item Value Reference Range Interpretation Comments Platelet (test code = Platelet) 367 133-450 [place] 789280-06-14 09:44:00 Test Item Value Reference Range Interpretation Comments MPV (test code = MPV) 8.1 7.4-10.4 [facility] CenterHzlwavvKMZSTWSGYB6001-86-36 09:44:00 Test Item Value Reference Range Interpretation Comments Segs (test code = Segs) 89.8 45.0-75.0 [place] 789280-06-14 09:44:00 Test Item Value Reference Range Interpretation Comments Lymphocytes (test code = Lymphocytes) 4.5 20.0-40.0 [place] 789280-06-14 09:44:00 Test Item Value Reference Range Interpretation Comments Monocytes (test code = Monocytes) 4.6 2.0-12.0 [facility] CenterHruvtzvRLKVHRADNP7443-43-27 09:44:00 Test Item Value Reference Range Interpretation Comments Eosinophils (test code = 0.5 See_Comment [A utomated message] The Eosinophils) system which ge nerated this result tra nsmitted reference range : <=4.0. The reference r chase was not used to int erpret this result as normal/abnormal . [facility] CenterAvvqlhaQOCNGOXMWZ8391-83-93 09:44:00 Test Item Value Reference Range Interpretation Comments Basophils (test code = 0.6 See_Comment [Aut omated message] The Basophils) system which ge nerated this result tra nsmitted reference range : <=1.0. The reference r chase was not used to int erpret this result as normal/abnormal . [facility] CenterToctchaUIYRBCOXCC5634-64-27 09:44:00 Test Item Value Reference Range Interpretation Comments Neutrophils # (test code = Neutrophils 16.0 1.5-8.1 #) [facility] CenterXgljesyMTTPUECNNG9157-72-49 09:44:00 Test Item Value Reference Range Interpretation Comments Lymphocytes # (test code = Lymphocytes 0.8 1.0-5.5 #) [place] 789280-06-14 09:44:00 Test Item Value Reference Range Interpretation Comments Monocytes # (test code 0.8 See_Comment [Aut omated message] The = Monocytes #) system which generated this result tra nsmitted reference range : <=0.8. The reference r chase was not used to int erpret this result as normal/abnormal . [place] 789280-06-14 09:44:00 Test Item Value Reference Range Interpretation Comments Eosinophils # (test code 0.1 See_Comment [A utomated message] The = Eosinophils #) system whic h generated this result tra nsmitted reference range : <=0.5. The reference r chase was not used to int erpret this result as normal/abnormal . [facility] CenterYtlgpfhFPYTQIEYFX6005-55-92 09:44:00 Test Item Value Reference Range Interpretation Comments Basophils # (test code 0.1 See_Comment [Aut omated message] The = Basophils #) system which generated this result tra nsmitted reference range : <=0.2. The reference r chase was not used to int erpret this result as normal/abnormal . [place] 763680-06-14 09:44:00 Test Item Value Reference Range Interpretation Comments Glucose Lvl (test code = Glucose Lvl) 197 70-[address] [facility] [id number] 09:44:00 Test Item Value Reference Range Interpretation Comments BUN (test code = BUN) 11 7-[address] [facility] [id number] 09:44:00 Test Item Value Reference Range Interpretation Comments Creatinine Lvl (test code = Creatinine 0.89 0.50-1.40 Lvl) [place] 763680-06-14 09:44:00 Test Item Value Reference Range Interpretation Comments Sodium Lvl (test code = Sodium Lvl) 133 135-145 [facility] [id number] 09:44:00 Test Item Value Reference Range Interpretation Comments Potassium Lvl (test code = Potassium 3.6 3.5-5.1 Lvl) [facility] AmericaWyzAnt.comSAVANNAH [place] [address]163LETQO1184-42-56 09:44:00 Test Item Value Reference Range Interpretation Comments Chloride Lvl (test code = Chloride Lvl) 103 95-[address] [facility] [id number] 09:44:00 Test Item Value Reference Range Interpretation Comments CO2 (test code = CO2) 21 24-[address] [facility] [id number] 09:44:00 Test Item Value Reference Range Interpretation Comments Calcium Lvl (test code = Calcium Lvl) 9.4 8.5-10.5 [facility]2020-06-14 09:44:00 Test Item Value Reference Range Interpretation Comments AGAP (test code = AGAP) 12.6 10.0-20.0 [facility]2020-06-14 09:44:00 Test Item Value Reference Range Interpretation Comments eGFR (test code = eGFR) 71 [facility] CenterXzzskjfROGARNEVVH2176-42-95 09:44:00 Test Item Value Reference Range Interpretation Comments WBC (test code = WBC) 17.9 3.7-10.4 [facility] CenterWiqytfhMXSELKXVQD0711-06-81 09:44:00 Test Item Value Reference Range Interpretation Comments RBC (test code = RBC) 3.55 4.20-5.40 [place] 789280-06-14 09:44:00 Test Item Value Reference Range Interpretation Comments Hgb (test code = Hgb) 11.5 12.0-16.0 [place] 789280-06-14 09:44:00 Test Item Value Reference Range Interpretation Comments Hct (test code = Hct) 34.0 36.0-48.0 [facility] CenterVbuhozoEFVSOUWLSI0456-64-89 09:44:00 Test Item Value Reference Range Interpretation Comments MCV (test code = MCV) 95.8 80.0-98.0 [place] 789280-06-14 09:44:00 Test Item Value Reference Range Interpretation Comments MCH (test code = MCH) 32.4 pg 27.0-31.0 [facility] CenterVnwhrkfFTULJBDDZU0153-37-08 09:44:00 Test Item Value Reference Range Interpretation Comments MCHC (test code = MCHC) 33.8 32.0-36.0 [place] 789280-06-14 09:44:00 Test Item Value Reference Range Interpretation Comments RDW (test code = RDW) 14.3 11.5-14.5 [place] [address]-06-14 09:44:00 Test Item Value Reference Range Interpretation Comments Platelet (test code = Platelet) 367 424-450 [facility] CenterGuqrwzkVZSEUYTSUZ2186-10-88 09:44:00 Test Item Value Reference Range Interpretation Comments MPV (test code = MPV) 8.1 7.4-10.4 [place] 789280-06-14 09:44:00 Test Item Value Reference Range Interpretation Comments Segs (test code = Segs) 89.8 45.0-75.0 [place] 789280-06-14 09:44:00 Test Item Value Reference Range Interpretation Comments Lymphocytes (test code = Lymphocytes) 4.5 20.0-40.0 [place] [address]-06-14 09:44:00 Test Item Value Reference Range Interpretation Comments Monocytes (test code = Monocytes) 4.6 2.0-12.0 [place] [address]-06-14 09:44:00 Test Item Value Reference Range Interpretation Comments Eosinophils (test code = 0.5 See_Comment [A utomated message] The Eosinophils) system which ge nerated this result tra nsmitted reference range : <=4.0. The reference r chase was not used to int erpret this result as normal/abnormal . [place] 789280-06-14 09:44:00 Test Item Value Reference Range Interpretation Comments Basophils (test code = 0.6 See_Comment [Aut omated message] The Basophils) system which ge nerated this result tra nsmitted reference range : <=1.0. The reference r chase was not used to int erpret this result as normal/abnormal . [facility] CenterKmclrckLIGQBHNJIQ9730-00-29 09:44:00 Test Item Value Reference Range Interpretation Comments Neutrophils # (test code = Neutrophils 16.0 1.5-8.1 #) [place] 789280-06-14 09:44:00 Test Item Value Reference Range Interpretation Comments Lymphocytes # (test code = Lymphocytes 0.8 1.0-5.5 #) [place] 789280-06-14 09:44:00 Test Item Value Reference Range Interpretation Comments Monocytes # (test code 0.8 See_Comment [Aut omated message] The = Monocytes #) system which generated this result tra nsmitted reference range : <=0.8. The reference r chase was not used to int erpret this result as normal/abnormal . [facility] CenterXilrqraUCMGGLMBKO1688-14-68 09:44:00 Test Item Value Reference Range Interpretation Comments Eosinophils # (test code 0.1 See_Comment [A utomated message] The = Eosinophils #) system whic h generated this result tra nsmitted reference range : <=0.5. The reference r chase was not used to int erpret this result as normal/abnormal . [place] 789280-06-14 09:44:00 Test Item Value Reference Range Interpretation Comments Basophils # (test code 0.1 See_Comment [Aut omated message] The = Basophils #) system which generated this result tra nsmitted reference range : <=0.2. The reference r chase was not used to int erpret this result as normal/abnormal . [place] 763680-06-14 09:44:00 Test Item Value Reference Range Interpretation Comments Glucose Lvl (test code = Glucose Lvl) 197 70-99 [place] [address]-06-14 09:44:00 Test Item Value Reference Range Interpretation Comments BUN (test code = BUN) 11 7-22 [place] [address]-06-14 09:44:00 Test Item Value Reference Range Interpretation Comments Creatinine Lvl (test code = Creatinine 0.89 0.50-1.40 Lvl) [place] [address]-06-14 09:44:00 Test Item Value Reference Range Interpretation Comments Sodium Lvl (test code = Sodium Lvl) 133 135-145 [place] [address]-06-14 09:44:00 Test Item Value Reference Range Interpretation Comments Potassium Lvl (test code = Potassium 3.6 3.5-5.1 Lvl) [place] 763680-06-14 09:44:00 Test Item Value Reference Range Interpretation Comments Chloride Lvl (test code = Chloride Lvl) 103 95-109 [place] 763680-06-14 09:44:00 Test Item Value Reference Range Interpretation Comments CO2 (test code = CO2) 21 24-32 [place] [address]-06-14 09:44:00 Test Item Value Reference Range Interpretation Comments Calcium Lvl (test code = Calcium Lvl) 9.4 8.5-10.5 [place] [address]-06-14 09:44:00 Test Item Value Reference Range Interpretation Comments AGAP (test code = AGAP) 12.6 10.0-20.0 [place] 763680-06-14 09:44:00 Test Item Value Reference Range Interpretation Comments eGFR (test code = eGFR) 71 [place] 789280-06-14 09:44:00 Test Item Value Reference Range Interpretation Comments WBC (test code = WBC) 17.9 3.7-10.4 [facility] CenterGssvazfLGJJRTWLNS5786-47-83 09:44:00 Test Item Value Reference Range Interpretation Comments RBC (test code = RBC) 3.55 4.20-5.40 [facility] CenterCioktoaYTMBHARTYD1490-87-16 09:44:00 Test Item Value Reference Range Interpretation Comments Hgb (test code = Hgb) 11.5 12.0-16.0 [facility] CenterCtepuwyMYHDLHWAWS3744-97-81 09:44:00 Test Item Value Reference Range Interpretation Comments Hct (test code = Hct) 34.0 36.0-48.0 [facility] CenterXnchzdcLKTWBPSJFJ9850-01-53 09:44:00 Test Item Value Reference Range Interpretation Comments MCV (test code = MCV) 95.8 80.0-98.0 [facility] CenterCrdnwznOXXLHSZMDK3504-75-45 09:44:00 Test Item Value Reference Range Interpretation Comments MCH (test code = MCH) 32.4 pg 27.0-31.0 [facility] CenterQasjokdQUPRCXRXDM7172-42-57 09:44:00 Test Item Value Reference Range Interpretation Comments MCHC (test code = MCHC) 33.8 32.0-36.0 [facility] CenterPzrbhojCHAAZORLNL6482-57-35 09:44:00 Test Item Value Reference Range Interpretation Comments RDW (test code = RDW) 14.3 11.5-14.5 [facility] CenterMfjjhbpFRBVLUABDD0586-31-61 09:44:00 Test Item Value Reference Range Interpretation Comments Platelet (test code = Platelet) 367 133-450 [facility] CenterCrsyrglLLBVDNOLCL4291-09-96 09:44:00 Test Item Value Reference Range Interpretation Comments MPV (test code = MPV) 8.1 7.4-10.4 [facility] CenterTjsbqitURXDGUSHXY2369-96-57 09:44:00 Test Item Value Reference Range Interpretation Comments Segs (test code = Segs) 89.8 45.0-75.0 [facility] CenterNpmgxgwOOAKQZNBGR8395-78-66 09:44:00 Test Item Value Reference Range Interpretation Comments Lymphocytes (test code = Lymphocytes) 4.5 20.0-40.0 [facility] CenterSyanbkoFBGYVQRWOL9517-46-96 09:44:00 Test Item Value Reference Range Interpretation Comments Monocytes (test code = Monocytes) 4.6 2.0-12.0 [facility] CenterFapgekxHAVSHVDBKZ7768-48-55 09:44:00 Test Item Value Reference Range Interpretation Comments Eosinophils (test code = 0.5 See_Comment [A utomated message] The Eosinophils) system which ge nerated this result tra nsmitted reference range : <=4.0. The reference r chase was not used to int erpret this result as normal/abnormal . [facility] CenterNvoopmaEAHAUIKJOD1398-25-09 09:44:00 Test Item Value Reference Range Interpretation Comments Basophils (test code = 0.6 See_Comment [Aut omated message] The Basophils) system which ge nerated this result tra nsmitted reference range : <=1.0. The reference r chase was not used to int erpret this result as normal/abnormal . [facility] CenterDaylxxxZZYKBZGUEC7197-71-97 09:44:00 Test Item Value Reference Range Interpretation Comments Neutrophils # (test code = Neutrophils 16.0 1.5-8.1 #) [place] 789280-06-14 09:44:00 Test Item Value Reference Range Interpretation Comments Lymphocytes # (test code = Lymphocytes 0.8 1.0-5.5 #) [place] 789280-06-14 09:44:00 Test Item Value Reference Range Interpretation Comments Monocytes # (test code 0.8 See_Comment [Aut omated message] The = Monocytes #) system which generated this result tra nsmitted reference range : <=0.8. The reference r chase was not used to int erpret this result as normal/abnormal . [facility] CenterOhgkpoaDKAJOSQYLM8807-43-74 09:44:00 Test Item Value Reference Range Interpretation Comments Eosinophils # (test code 0.1 See_Comment [A utomated message] The = Eosinophils #) system whic h generated this result tra nsmitted reference range : <=0.5. The reference r chase was not used to int erpret this result as normal/abnormal . [facility] CenterQpfblivFPLASRUMEB5974-27-24 09:44:00 Test Item Value Reference Range Interpretation Comments Basophils # (test code 0.1 See_Comment [Aut omated message] The = Basophils #) system which generated this result tra nsmitted reference range : <=0.2. The reference r chase was not used to int erpret this result as normal/abnormal . [place] 763680-06-14 09:44:00 Test Item Value Reference Range Interpretation Comments Glucose Lvl (test code = Glucose Lvl) 197 70-99 [place] [address]-06-14 09:44:00 Test Item Value Reference Range Interpretation Comments BUN (test code = BUN) 11 7-22 [place] [address]-06-14 09:44:00 Test Item Value Reference Range Interpretation Comments Creatinine Lvl (test code = Creatinine 0.89 0.50-1.40 Lvl) [place] [address]-06-14 09:44:00 Test Item Value Reference Range Interpretation Comments Sodium Lvl (test code = Sodium Lvl) 133 135-145 [place] 763680-06-14 09:44:00 Test Item Value Reference Range Interpretation Comments Potassium Lvl (test code = Potassium 3.6 3.5-5.1 Lvl) [place] [address]-06-14 09:44:00 Test Item Value Reference Range Interpretation Comments Chloride Lvl (test code = Chloride Lvl) 103 95-109 [place] [address]-06-14 09:44:00 Test Item Value Reference Range Interpretation Comments CO2 (test code = CO2) 21 24-32 [place] [address]-06-14 09:44:00 Test Item Value Reference Range Interpretation Comments Calcium Lvl (test code = Calcium Lvl) 9.4 8.5-10.5 [place] 763680-06-14 09:44:00 Test Item Value Reference Range Interpretation Comments AGAP (test code = AGAP) 12.6 10.0-20.0 [place] 763680-06-14 09:44:00 Test Item Value Reference Range Interpretation Comments eGFR (test code = eGFR) 71 [place] [address]-06-14 09:44:00 Test Item Value Reference Range Interpretation Comments WBC (test code = WBC) 17.9 3.7-10.4 [place] [address]-06-14 09:44:00 Test Item Value Reference Range Interpretation Comments RBC (test code = RBC) 3.55 4.20-5.40 [place] [address]-06-14 09:44:00 Test Item Value Reference Range Interpretation Comments Hgb (test code = Hgb) 11.5 12.0-16.0 [facility] CenterPfyilvsVERCAUZSCP6053-09-13 09:44:00 Test Item Value Reference Range Interpretation Comments Hct (test code = Hct) 34.0 36.0-48.0 [facility] CenterKtfjmbsSTQZDCOUUL9280-32-18 09:44:00 Test Item Value Reference Range Interpretation Comments MCV (test code = MCV) 95.8 80.0-98.0 [facility]WvwmrctCDTUYGKXCE7483-52-55 09:44:00 Test Item Value Reference Range Interpretation Comments MCH (test code = MCH) 32.4 pg 27.0-31.0 [facility] CenterVmpnpgeUANHNQNXXN1996-09-71 09:44:00 Test Item Value Reference Range Interpretation Comments MCHC (test code = MCHC) 33.8 32.0-36.0 [facility] CenterRzvdkffRQYUPQWISI0568-21-90 09:44:00 Test Item Value Reference Range Interpretation Comments RDW (test code = RDW) 14.3 11.5-14.5 [facility] CenterZgggggaTADKLOZPHR3370-04-94 09:44:00 Test Item Value Reference Range Interpretation Comments Platelet (test code = Platelet) 367 133-450 [facility] CenterGzqkrubCDYIEKJSWD6776-16-28 09:44:00 Test Item Value Reference Range Interpretation Comments MPV (test code = MPV) 8.1 7.4-10.4 [facility] CenterIapzcwcBEMLWEAAGE2673-98-77 09:44:00 Test Item Value Reference Range Interpretation Comments Segs (test code = Segs) 89.8 45.0-75.0 [facility] CenterIsazkwjUISMUHAIKO9170-73-49 09:44:00 Test Item Value Reference Range Interpretation Comments Lymphocytes (test code = Lymphocytes) 4.5 20.0-40.0 [facility] CenterMbmgyrdPDTEGSSBRZ1641-54-73 09:44:00 Test Item Value Reference Range Interpretation Comments Monocytes (test code = Monocytes) 4.6 2.0-12.0 [facility] CenterYjkyrqaAPLBDZBMPM5722-54-11 09:44:00 Test Item Value Reference Range Interpretation Comments Eosinophils (test code = 0.5 See_Comment [A utomated message] The Eosinophils) system which ge nerated this result tra nsmitted reference range : <=4.0. The reference r chase was not used to int erpret this result as normal/abnormal . [place] [address]-06-14 09:44:00 Test Item Value Reference Range Interpretation Comments Basophils (test code = 0.6 See_Comment [Aut omated message] The Basophils) system which ge nerated this result tra nsmitted reference range : <=1.0. The reference r chase was not used to int erpret this result as normal/abnormal . [facility] CenterGqchjqqWMRLELEZUO2090-46-04 09:44:00 Test Item Value Reference Range Interpretation Comments Neutrophils # (test code = Neutrophils 16.0 1.5-8.1 #) [facility] CenterYgbtnkrCRQWPPJJBF7277-47-15 09:44:00 Test Item Value Reference Range Interpretation Comments Lymphocytes # (test code = Lymphocytes 0.8 1.0-5.5 #) [place] 789280-06-14 09:44:00 Test Item Value Reference Range Interpretation Comments Monocytes # (test code 0.8 See_Comment [Aut omated message] The = Monocytes #) system which generated this result tra nsmitted reference range : <=0.8. The reference r chase was not used to int erpret this result as normal/abnormal . [facility] CenterYjpifzeBPLTVGJHCX3950-76-94 09:44:00 Test Item Value Reference Range Interpretation Comments Eosinophils # (test code 0.1 See_Comment [A utomated message] The = Eosinophils #) system whic h generated this result tra nsmitted reference range : <=0.5. The reference r chase was not used to int erpret this result as normal/abnormal . [facility] CenterIcxjeriCGUXCKDECH6135-29-99 09:44:00 Test Item Value Reference Range Interpretation Comments Basophils # (test code 0.1 See_Comment [Aut omated message] The = Basophils #) system which generated this result tra nsmitted reference range : <=0.2. The reference r chase was not used to int erpret this result as normal/abnormal . [facility] [id number] 09:44:00 Test Item Value Reference Range Interpretation Comments Glucose Lvl (test code = Glucose Lvl) 197 70-99 [facility] [id number] 09:44:00 Test Item Value Reference Range Interpretation Comments BUN (test code = BUN) 11 7-22 [facility] [id number] 09:44:00 Test Item Value Reference Range Interpretation Comments Creatinine Lvl (test code = Creatinine 0.89 0.50-1.40 Lvl) [place] 763680-06-14 09:44:00 Test Item Value Reference Range Interpretation Comments Sodium Lvl (test code = Sodium Lvl) 133 135-145 [place] [address]-06-14 09:44:00 Test Item Value Reference Range Interpretation Comments Potassium Lvl (test code = Potassium 3.6 3.5-5.1 Lvl) [place] 763680-06-14 09:44:00 Test Item Value Reference Range Interpretation Comments Chloride Lvl (test code = Chloride Lvl) 103 95-109 [place] 763680-06-14 09:44:00 Test Item Value Reference Range Interpretation Comments CO2 (test code = CO2) 21 24-32 [place] 763680-06-14 09:44:00 Test Item Value Reference Range Interpretation Comments Calcium Lvl (test code = Calcium Lvl) 9.4 8.5-10.5 [place] 763680-06-14 09:44:00 Test Item Value Reference Range Interpretation Comments AGAP (test code = AGAP) 12.6 10.0-20.0 [place] 763680-06-14 09:44:00 Test Item Value Reference Range Interpretation Comments eGFR (test code = eGFR) 71 [facility] CenterYwxqjzzSEVCTYEWHI2447-48-46 09:44:00 Test Item Value Reference Range Interpretation Comments WBC (test code = WBC) 17.9 3.7-10.4 [place] 789280-06-14 09:44:00 Test Item Value Reference Range Interpretation Comments RBC (test code = RBC) 3.55 4.20-5.40 [place] 789280-06-14 09:44:00 Test Item Value Reference Range Interpretation Comments Hgb (test code = Hgb) 11.5 12.0-16.0 [place] [address]-06-14 09:44:00 Test Item Value Reference Range Interpretation Comments Hct (test code = Hct) 34.0 36.0-48.0 [place] [address]-06-14 09:44:00 Test Item Value Reference Range Interpretation Comments MCV (test code = MCV) 95.8 80.0-98.0 [address]06-14 09:44:00 Test Item Value Reference Range Interpretation Comments MCH (test code = MCH) 32.4 pg 27.0-31.0 [facility] CenterKktykelSMYWOYYOHK7795-56-41 09:44:00 Test Item Value Reference Range Interpretation Comments MCHC (test code = MCHC) 33.8 32.0-36.0 [facility] CenterGhkdnjtQLMGABAOXW1167-23-04 09:44:00 Test Item Value Reference Range Interpretation Comments RDW (test code = RDW) 14.3 11.5-14.5 [facility] CenterAfhpzfyJLSDFGJMEM4532-03-71 09:44:00 Test Item Value Reference Range Interpretation Comments Platelet (test code = Platelet) 367 133-450 [facility] CenterMxpnyagYWAJUGSAWK6526-06-25 09:44:00 Test Item Value Reference Range Interpretation Comments MPV (test code = MPV) 8.1 7.4-10.4 [facility] CenterLwknkvpHIKTMQZNOU9114-96-02 09:44:00 Test Item Value Reference Range Interpretation Comments Segs (test code = Segs) 89.8 45.0-75.0 [facility] CenterDbylwucLIAMFIDDHF0996-92-68 09:44:00 Test Item Value Reference Range Interpretation Comments Lymphocytes (test code = Lymphocytes) 4.5 20.0-40.0 [facility] CenterUdahuwjXCFYOZDKOJ3407-57-11 09:44:00 Test Item Value Reference Range Interpretation Comments Monocytes (test code = Monocytes) 4.6 2.0-12.0 [facility] CenterFrexlhmTKXDCDCIFQ9067-71-71 09:44:00 Test Item Value Reference Range Interpretation Comments Eosinophils (test code = 0.5 See_Comment [A utomated message] The Eosinophils) system which ge nerated this result tra nsmitted reference range : <=4.0. The reference r chase was not used to int erpret this result as normal/abnormal . [facility] CenterVezqcygVIGABAKYGD8501-11-75 09:44:00 Test Item Value Reference Range Interpretation Comments Basophils (test code = 0.6 See_Comment [Aut omated message] The Basophils) system which ge nerated this result tra nsmitted reference range : <=1.0. The reference r chase was not used to int erpret this result as normal/abnormal . [facility] CenterLhmrumkNCDTJWMGBG9703-56-92 09:44:00 Test Item Value Reference Range Interpretation Comments Neutrophils # (test code = Neutrophils 16.0 1.5-8.1 #) [facility] CenterEbqypmmLZMHRHMVRO6570-59-55 09:44:00 Test Item Value Reference Range Interpretation Comments Lymphocytes # (test code = Lymphocytes 0.8 1.0-5.5 #) [place] 789280-06-14 09:44:00 Test Item Value Reference Range Interpretation Comments Monocytes # (test code 0.8 See_Comment [Aut omated message] The = Monocytes #) system which generated this result tra nsmitted reference range : <=0.8. The reference r chase was not used to int erpret this result as normal/abnormal . [place] 789280-06-14 09:44:00 Test Item Value Reference Range Interpretation Comments Eosinophils # (test code 0.1 See_Comment [A utomated message] The = Eosinophils #) system whic h generated this result tra nsmitted reference range : <=0.5. The reference r chase was not used to int erpret this result as normal/abnormal . [facility] CenterBdmejszWJWTHTKJKP6754-50-10 09:44:00 Test Item Value Reference Range Interpretation Comments Basophils # (test code 0.1 See_Comment [Aut omated message] The = Basophils #) system which generated this result tra nsmitted reference range : <=0.2. The reference r chase was not used to int erpret this result as normal/abnormal . [facility]2020-06-14 09:44:00 Test Item Value Reference Range Interpretation Comments Glucose Lvl (test code = Glucose Lvl) 197 70-[address] [facility] [id number] 09:44:00 Test Item Value Reference Range Interpretation Comments BUN (test code = BUN) 11 7-[address] [facility] [id number] 09:44:00 Test Item Value Reference Range Interpretation Comments Creatinine Lvl (test code = Creatinine 0.89 0.50-1.40 Lvl) [facility]2020-06-14 09:44:00 Test Item Value Reference Range Interpretation Comments Sodium Lvl (test code = Sodium Lvl) 133 135-[address] [facility] [id number] 09:44:00 Test Item Value Reference Range Interpretation Comments Potassium Lvl (test code = Potassium 3.6 3.5-5.1 Lvl) [facility]2020-06-14 09:44:00 Test Item Value Reference Range Interpretation Comments Chloride Lvl (test code = Chloride Lvl) 103 95-109 [place] 763680-06-14 09:44:00 Test Item Value Reference Range Interpretation Comments CO2 (test code = CO2) 21 24-32 [place] [address]-06-14 09:44:00 Test Item Value Reference Range Interpretation Comments Calcium Lvl (test code = Calcium Lvl) 9.4 8.5-10.5 [place] 763680-06-14 09:44:00 Test Item Value Reference Range Interpretation Comments AGAP (test code = AGAP) 12.6 10.0-20.0 [place] [address]-06-14 09:44:00 Test Item Value Reference Range Interpretation Comments eGFR (test code = eGFR) 71 [facility] CenterFoihifpOXIOWRNKKD5821-86-14 09:44:00 Test Item Value Reference Range Interpretation Comments WBC (test code = WBC) 17.9 3.7-10.4 [place] 789280-06-14 09:44:00 Test Item Value Reference Range Interpretation Comments RBC (test code = RBC) 3.55 4.20-5.40 [place] 789280-06-14 09:44:00 Test Item Value Reference Range Interpretation Comments Hgb (test code = Hgb) 11.5 12.0-16.0 [place] [address]-06-14 09:44:00 Test Item Value Reference Range Interpretation Comments Hct (test code = Hct) 34.0 36.0-48.0 [place] [address]-06-14 09:44:00 Test Item Value Reference Range Interpretation Comments MCV (test code = MCV) 95.8 80.0-98.0 [place] [address]-06-14 09:44:00 Test Item Value Reference Range Interpretation Comments MCH (test code = MCH) 32.4 pg 27.0-31.0 [place] [address]-06-14 09:44:00 Test Item Value Reference Range Interpretation Comments MCHC (test code = MCHC) 33.8 32.0-36.0 [place] 789280-06-14 09:44:00 Test Item Value Reference Range Interpretation Comments RDW (test code = RDW) 14.3 11.5-14.5 [facility] CenterPxofcyaXEQEYGHWJS7193-77-12 09:44:00 Test Item Value Reference Range Interpretation Comments Platelet (test code = Platelet) 367 133-450 [place] 789280-06-14 09:44:00 Test Item Value Reference Range Interpretation Comments MPV (test code = MPV) 8.1 7.4-10.4 [facility] CenterYkzqfupRZWXXDUYZP2307-09-62 09:44:00 Test Item Value Reference Range Interpretation Comments Segs (test code = Segs) 89.8 45.0-75.0 [place] 789280-06-14 09:44:00 Test Item Value Reference Range Interpretation Comments Lymphocytes (test code = Lymphocytes) 4.5 20.0-40.0 [place] 789280-06-14 09:44:00 Test Item Value Reference Range Interpretation Comments Monocytes (test code = Monocytes) 4.6 2.0-12.0 [facility] CenterPsgsdiwHDPJJSZCFN6234-64-06 09:44:00 Test Item Value Reference Range Interpretation Comments Eosinophils (test code = 0.5 See_Comment [A utomated message] The Eosinophils) system which ge nerated this result tra nsmitted reference range : <=4.0. The reference r chase was not used to int erpret this result as normal/abnormal . [facility] CenterKtizlxiZHULTAGVLQ9371-67-85 09:44:00 Test Item Value Reference Range Interpretation Comments Basophils (test code = 0.6 See_Comment [Aut omated message] The Basophils) system which ge nerated this result tra nsmitted reference range : <=1.0. The reference r chase was not used to int erpret this result as normal/abnormal . [facility] CenterUaczlhdAWKHPDBMUH1000-68-39 09:44:00 Test Item Value Reference Range Interpretation Comments Neutrophils # (test code = Neutrophils 16.0 1.5-8.1 #) [facility] CenterOzyjhbyLGRMXNGJWB2648-62-04 09:44:00 Test Item Value Reference Range Interpretation Comments Lymphocytes # (test code = Lymphocytes 0.8 1.0-5.5 #) [facility] CenterOhysqcrBJMINRWIPE3093-14-13 09:44:00 Test Item Value Reference Range Interpretation Comments Monocytes # (test code 0.8 See_Comment [Aut omated message] The = Monocytes #) system which generated this result tra nsmitted reference range : <=0.8. The reference r chase was not used to int erpret this result as normal/abnormal . [facility] CenterOysdfjnALERIHMYLR2218-36-32 09:44:00 Test Item Value Reference Range Interpretation Comments Eosinophils # (test code 0.1 See_Comment [A utomated message] The = Eosinophils #) system whic h generated this result tra nsmitted reference range : <=0.5. The reference r chase was not used to int erpret this result as normal/abnormal . [facility] CenterAhdrsriMEEJXFXHAW1338-65-47 09:44:00 Test Item Value Reference Range Interpretation Comments Basophils # (test code 0.1 See_Comment [Aut omated message] The = Basophils #) system which generated this result tra nsmitted reference range : <=0.2. The reference r chase was not used to int erpret this result as normal/abnormal . [facility]2020-06-14 09:44:00 Test Item Value Reference Range Interpretation Comments Glucose Lvl (test code = Glucose Lvl) 197 70-[address] [facility] [id number] 09:44:00 Test Item Value Reference Range Interpretation Comments BUN (test code = BUN) 11 7-[address] [facility] [id number] 09:44:00 Test Item Value Reference Range Interpretation Comments Creatinine Lvl (test code = Creatinine 0.89 0.50-1.40 Lvl) [place] 763680-06-14 09:44:00 Test Item Value Reference Range Interpretation Comments Sodium Lvl (test code = Sodium Lvl) 133 135-[address] [facility] YSBYH3615-03-80 09:44:00 Test Item Value Reference Range Interpretation Comments Potassium Lvl (test code = Potassium 3.6 3.5-5.1 Lvl) [place] 763680-06-14 09:44:00 Test Item Value Reference Range Interpretation Comments Chloride Lvl (test code = Chloride Lvl) 103 95-109 [place] 763680-06-14 09:44:00 Test Item Value Reference Range Interpretation Comments CO2 (test code = CO2) 21 24-[address] [facility] [id number] 09:44:00 Test Item Value Reference Range Interpretation Comments Calcium Lvl (test code = Calcium Lvl) 9.4 8.5-10.5 [facility]2020-06-14 09:44:00 Test Item Value Reference Range Interpretation Comments AGAP (test code = AGAP) 12.6 10.0-20.0 [facility]2020-06-14 09:44:00 Test Item Value Reference Range Interpretation Comments eGFR (test code = eGFR) 71 [facility] CenterFhxchbsBQLGFJJRIP7546-54-27 09:44:00 Test Item Value Reference Range Interpretation Comments WBC (test code = WBC) 17.9 3.7-10.4 [facility] CenterYxgdxyiNAGKTXWBWS9121-25-11 09:44:00 Test Item Value Reference Range Interpretation Comments RBC (test code = RBC) 3.55 4.20-5.40 [place] [address]-06-14 09:44:00 Test Item Value Reference Range Interpretation Comments Hgb (test code = Hgb) 11.5 12.0-16.0 [place] [address]-06-14 09:44:00 Test Item Value Reference Range Interpretation Comments Hct (test code = Hct) 34.0 36.0-48.0 [facility] CenterOgwgjgeZULQFSBFKH0261-62-08 09:44:00 Test Item Value Reference Range Interpretation Comments MCV (test code = MCV) 95.8 80.0-98.0 [place] 789280-06-14 09:44:00 Test Item Value Reference Range Interpretation Comments MCH (test code = MCH) 32.4 pg 27.0-31.0 [place] [address]-06-14 09:44:00 Test Item Value Reference Range Interpretation Comments MCHC (test code = MCHC) 33.8 32.0-36.0 [place] [address]-06-14 09:44:00 Test Item Value Reference Range Interpretation Comments RDW (test code = RDW) 14.3 11.5-14.5 [facility] CenterHeabqgvYSPYKNIKTM6866-63-08 09:44:00 Test Item Value Reference Range Interpretation Comments Platelet (test code = Platelet) 367 133-450 [facility] CenterPtdgpdbLWPARVPOFM3876-13-54 09:44:00 Test Item Value Reference Range Interpretation Comments MPV (test code = MPV) 8.1 7.4-10.4 [facility] CenterJoxtaioTRCQWTGXOJ8702-50-82 09:44:00 Test Item Value Reference Range Interpretation Comments Segs (test code = Segs) 89.8 45.0-75.0 [facility] CenterBjbufkmDBIYTKPVKG4019-56-73 09:44:00 Test Item Value Reference Range Interpretation Comments Lymphocytes (test code = Lymphocytes) 4.5 20.0-40.0 [facility] CenterRvdqsrrFXIKRUVRUH2124-27-21 09:44:00 Test Item Value Reference Range Interpretation Comments Monocytes (test code = Monocytes) 4.6 2.0-12.0 [place] [address]-06-14 09:44:00 Test Item Value Reference Range Interpretation Comments Eosinophils (test code = Eosinophils) 0.5 <=4.0 [place] [address]-06-14 09:44:00 Test Item Value Reference Range Interpretation Comments Basophils (test code = Basophils) 0.6 <=1.0 [facility] CenterWmqjxexCFDOLMGKXM9741-38-03 09:44:00 Test Item Value Reference Range Interpretation Comments Neutrophils # (test code = Neutrophils 16.0 1.5-8.1 #) [facility] CenterRugpsfrHDWCIHLIME8557-40-46 09:44:00 Test Item Value Reference Range Interpretation Comments Lymphocytes # (test code = Lymphocytes 0.8 1.0-5.5 #) [facility] CenterNvimtgaBOLREYLGBH1355-62-19 09:44:00 Test Item Value Reference Range Interpretation Comments Monocytes # (test code = Monocytes #) 0.8 <=0.8 [facility] CenterAnatfznEVDIGSLWUW5909-08-81 09:44:00 Test Item Value Reference Range Interpretation Comments Eosinophils # (test code = Eosinophils 0.1 <=0.5 #) [facility] CenterQspjvwuQKXOQLKAJV1987-78-09 09:44:00 Test Item Value Reference Range Interpretation Comments Basophils # (test code = Basophils #) 0.1 <=0.2 [facility]2020-06-13 09:06:00 Test Item Value Reference Range Interpretation Comments Glucose Lvl (test code = Glucose Lvl) 205 70-99 [facility]2020-06-13 09:06:00 Test Item Value Reference Range Interpretation Comments BUN (test code = BUN) 10 7-22 [facility]2020-06-13 09:06:00 Test Item Value Reference Range Interpretation Comments Creatinine Lvl (test code = Creatinine 0.91 0.50-1.40 Lvl) [place] 763680-06-13 09:06:00 Test Item Value Reference Range Interpretation Comments Sodium Lvl (test code = Sodium Lvl) 135 135-145 [place] [address]-06-13 09:06:00 Test Item Value Reference Range Interpretation Comments Potassium Lvl (test code = Potassium 4.1 3.5-5.1 Lvl) [place] [address]-06-13 09:06:00 Test Item Value Reference Range Interpretation Comments Chloride Lvl (test code = Chloride Lvl) 103 95-109 [place] [address]-06-13 09:06:00 Test Item Value Reference Range Interpretation Comments CO2 (test code = CO2) 22 24-32 [place] [address]-06-13 09:06:00 Test Item Value Reference Range Interpretation Comments AGAP (test code = AGAP) 14.1 10.0-20.0 [place] [address]-06-13 09:06:00 Test Item Value Reference Range Interpretation Comments Calcium Lvl (test code = Calcium Lvl) 9.9 8.5-10.5 [place] [address]-06-13 09:06:00 Test Item Value Reference Range Interpretation Comments eGFR (test code = eGFR) 69 [place] 789280-06-13 09:06:00 Test Item Value Reference Range Interpretation Comments Eosinophils (test code = 0.1 See_Comment [A utomated message] The Eosinophils) system which ge nerated this result tra nsmitted reference range : <=4.0. The reference r chase was not used to int erpret this result as normal/abnormal . [place] 789280-06-13 09:06:00 Test Item Value Reference Range Interpretation Comments Basophils (test code = 0.3 See_Comment [Aut omated message] The Basophils) system which ge nerated this result tra nsmitted reference range : <=1.0. The reference r chase was not used to int erpret this result as normal/abnormal . [place] [address]-06-13 09:06:00 Test Item Value Reference Range Interpretation Comments Basophils # (test code 0.1 See_Comment [Aut omated message] The = Basophils #) system which generated this result tra nsmitted reference range : <=0.2. The reference r chase was not used to int erpret this result as normal/abnormal . [facility] CenterGram Stain Tzayyo8214-22-17 09:06:00 Test Item Value Reference Range Interpretation Comments Gram Stain Report Moderate WBC's Moderate (test code = Gram Gram Positive Cocci In Stain Report) [facility] AmericaannCulture: Wound/Abscess w/Gram [id number] 09:06:00 Test Item Value Reference Range Interpretation Comments Culture: Moderate Streptococcus Wound/Abscess anginosus . Few w/Gram Stain (test Staphylococcus Species, Not code = Culture: S. aureus Wound/Abscess w/Gram Stain) [facility] CenterStreptococcus [id number] 09:06:00 Test Item Value Reference Range Interpretation Comments Streptococcus anginosus Streptococcus (test code = anginosus Streptococcus anginosus) [facility] Center[facility] [id number] 09:06:00 Test Item Value Reference Range Interpretation Comments Glucose Lvl (test code = Glucose Lvl) 205 70-[address] [facility] Center[facility] [id number] 09:06:00 Test Item Value Reference Range Interpretation Comments BUN (test code = BUN) 10 7-22 [facility]2020-06-13 09:06:00 Test Item Value Reference Range Interpretation Comments Creatinine Lvl (test code = Creatinine 0.91 0.50-1.40 Lvl) [facility]2020-06-13 09:06:00 Test Item Value Reference Range Interpretation Comments Sodium Lvl (test code = Sodium Lvl) 135 135-145 [facility] America[facility] [id number] 09:06:00 Test Item Value Reference Range Interpretation Comments Potassium Lvl (test code = Potassium 4.1 3.5-5.1 Lvl) [facility] Center[facility] [id number] 09:06:00 Test Item Value Reference Range Interpretation Comments Chloride Lvl (test code = Chloride Lvl) 103 95-[address] [facility] Center[facility] [id number] 09:06:00 Test Item Value Reference Range Interpretation Comments CO2 (test code = CO2) 22 24-32 [facility]2020-06-13 09:06:00 Test Item Value Reference Range Interpretation Comments AGAP (test code = AGAP) 14.1 10.0-20.0 [facility] [id number] 09:06:00 Test Item Value Reference Range Interpretation Comments Calcium Lvl (test code = Calcium Lvl) 9.9 8.5-10.5 [facility] [facility] [id number] 09:06:00 Test Item Value Reference Range Interpretation Comments eGFR (test code = eGFR) 69 [facility]SwziretTRTYKCTHUH8661-17-31 09:06:00 Test Item Value Reference Range Interpretation Comments Eosinophils (test code = 0.1 See_Comment [A utomated message] The Eosinophils) system which ge nerated this result tra nsmitted reference range : <=4.0. The reference r chase was not used to int erpret this result as normal/abnormal . [facility] C[id number] 09:06:00 Test Item Value Reference Range Interpretation Comments Basophils (test code = 0.3 See_Comment [Aut omated message] The Basophils) system which ge nerated this result tra nsmitted reference range : <=1.0. The reference r chase was not used to int erpret this result as normal/abnormal . [facility] CenterLselenoBDDGXLTGVF0400-17-75 09:06:00 Test Item Value Reference Range Interpretation Comments Basophils # (test code 0.1 See_Comment [Aut omated message] The = Basophils #) system which generated this result tra nsmitted reference range : <=0.2. The reference r chase was not used to int erpret this result as normal/abnormal . [facility] CenterGram Stain [id number] 09:06:00 Test Item Value Reference Range Interpretation Comments Gram Stain Report Moderate WBC's Moderate (test code = Gram Gram Positive Cocci In Stain Report) Clusters [facility] CenterCulture: Wound/Abscess w/Gram [id number] 09:06:00 Test Item Value Reference Range Interpretation Comments Culture: Moderate Streptococcus Wound/Abscess anginosus . Few w/Gram Stain (test Staphylococcus Species, Not code = Culture: S. aureus Wound/Abscess w/Gram Stain) [facility] CenterStreptococcus [id number] 09:06:00 Test Item Value Reference Range Interpretation Comments Streptococcus anginosus Streptococcus (test code = anginosus Streptococcus anginosus) [place] [id number] 09:06:00 Test Item Value Reference Range Interpretation Comments Glucose Lvl (test code = Glucose Lvl) 205 70-99 [place] [id number] 09:06:00 Test Item Value Reference Range Interpretation Comments BUN (test code = BUN) 10 7-22 [place] [id number] 09:06:00 Test Item Value Reference Range Interpretation Comments Creatinine Lvl (test code = Creatinine 0.91 0.50-1.40 Lvl) [place] 50[address]-06-13 09:06:00 Test Item Value Reference Range Interpretation Comments Sodium Lvl (test code = Sodium Lvl) 135 135-145 [place] 763680-06-13 09:06:00 Test Item Value Reference Range Interpretation Comments Potassium Lvl (test code = Potassium 4.1 3.5-5.1 Lvl) [place] 763680-06-13 09:06:00 Test Item Value Reference Range Interpretation Comments Chloride Lvl (test code = Chloride Lvl) 103 95-109 [place] 763680-06-13 09:06:00 Test Item Value Reference Range Interpretation Comments CO2 (test code = CO2) 22 24-32 [place] 763680-06-13 09:06:00 Test Item Value Reference Range Interpretation Comments AGAP (test code = AGAP) 14.1 10.0-20.0 [place] 763680-06-13 09:06:00 Test Item Value Reference Range Interpretation Comments Calcium Lvl (test code = Calcium Lvl) 9.9 8.5-10.5 [place] 763680-06-13 09:06:00 Test Item Value Reference Range Interpretation Comments eGFR (test code = eGFR) 69 [place] [id number] 09:06:00 Test Item Value Reference Range Interpretation Comments Eosinophils (test code = 0.1 See_Comment [A utomated message] The Eosinophils) system which ge nerated this result tra nsmitted reference range : <=4.0. The reference r chase was not used to int erpret this result as normal/abnormal . [place] 789280-06-13 09:06:00 Test Item Value Reference Range Interpretation Comments Basophils (test code = 0.3 See_Comment [Aut omated message] The Basophils) system which ge nerated this result tra nsmitted reference range : <=1.0. The reference r chase was not used to int erpret this result as normal/abnormal . [facility] [id number] 09:06:00 Test Item Value Reference Range Interpretation Comments Basophils # (test code 0.1 See_Comment [Aut omated message] The = Basophils #) system which generated this result tra nsmitted reference range : <=0.2. The reference r chase was not used to int erpret this result as normal/abnormal . [facility] CenterGram Stain [id number] 09:06:00 Test Item Value Reference Range Interpretation Comments Gram Stain Report Moderate WBC's Moderate (test code = Gram Gram Positive Cocci In Stain Report) Clusters [facility] CenterCulture: Wound/Abscess w/Gram [id number] 09:06:00 Test Item Value Reference Range Interpretation Comments Culture: Moderate Streptococcus Wound/Abscess anginosus . Few w/Gram Stain (test Staphylococcus Species, Not code = Culture: S. aureus Wound/Abscess w/Gram Stain) [facility] CenterStreptococcus [id number] 09:06:00 Test Item Value Reference Range Interpretation Comments Streptococcus anginosus Streptococcus (test code = anginosus Streptococcus anginosus) [facility] [id number] 09:06:00 Test Item Value Reference Range Interpretation Comments Glucose Lvl (test code = Glucose Lvl) 205 70-99 [facility] [id number] 09:06:00 Test Item Value Reference Range Interpretation Comments BUN (test code = BUN) 10 7-22 [facility] [id number] 09:06:00 Test Item Value Reference Range Interpretation Comments Creatinine Lvl (test code = Creatinine 0.91 0.50-1.40 Lvl) [facility] [id number] 09:06:00 Test Item Value Reference Range Interpretation Comments Sodium Lvl (test code = Sodium Lvl) 135 135-145 [facility] [id number] 09:06:00 Test Item Value Reference Range Interpretation Comments Potassium Lvl (test code = Potassium 4.1 3.5-5.1 Lvl) [facility] [id number] 09:06:00 Test Item Value Reference Range Interpretation Comments Chloride Lvl (test code = Chloride Lvl) 103 95-109 [facility] [id number] 09:06:00 Test Item Value Reference Range Interpretation Comments CO2 (test code = CO2) 22 24-32 [facility] [id number] 09:06:00 Test Item Value Reference Range Interpretation Comments AGAP (test code = AGAP) 14.1 10.0-20.0 [facility] [id number] 09:06:00 Test Item Value Reference Range Interpretation Comments Calcium Lvl (test code = Calcium Lvl) 9.9 8.5-10.5 [facility] [id number] 09:06:00 Test Item Value Reference Range Interpretation Comments eGFR (test code = eGFR) 69 [facility] CenterNizscyfIRCWKNUOOP1939-22-00 09:06:00 Test Item Value Reference Range Interpretation Comments Eosinophils (test code = 0.1 See_Comment [A utomated message] The Eosinophils) system which ge nerated this result tra nsmitted reference range : <=4.0. The reference r chase was not used to int erpret this result as normal/abnormal . [facility] [id number] 09:06:00 Test Item Value Reference Range Interpretation Comments Basophils (test code = 0.3 See_Comment [Aut omated message] The Basophils) system which ge nerated this result tra nsmitted reference range : <=1.0. The reference r chase was not used to int erpret this result as normal/abnormal . [facility] CenterGvolzwtRDZLBRIXCF7223-31-29 09:06:00 Test Item Value Reference Range Interpretation Comments Basophils # (test code 0.1 See_Comment [Aut omated message] The = Basophils #) system which generated this result tra nsmitted reference range : <=0.2. The reference r chase was not used to int erpret this result as normal/abnormal . [facility] CenterGram Stain [id number] 09:06:00 Test Item Value Reference Range Interpretation Comments Gram Stain Report Moderate WBC's Moderate (test code = Gram Gram Positive Cocci In Stain Report) Clusters [facility] CenterCulture: Wound/Abscess w/Gram [id number] 09:06:00 Test Item Value Reference Range Interpretation Comments Culture: Moderate Streptococcus Wound/Abscess anginosus . Few w/Gram Stain (test Staphylococcus Species, Not code = Culture: S. aureus Wound/Abscess w/Gram Stain) [facility] [id number] 09:06:00 Test Item Value Reference Range Interpretation Comments Streptococcus anginosus Streptococcus (test code = anginosus Streptococcus anginosus) [facility]2020-06-13 09:06:00 Test Item Value Reference Range Interpretation Comments Glucose Lvl (test code = Glucose Lvl) 205 70-99 [facility]2020-06-13 09:06:00 Test Item Value Reference Range Interpretation Comments BUN (test code = BUN) 10 7-22 [facility]2020-06-13 09:06:00 Test Item Value Reference Range Interpretation Comments Creatinine Lvl (test code = Creatinine 0.91 0.50-1.40 Lvl) [facility]2020-06-13 09:06:00 Test Item Value Reference Range Interpretation Comments Sodium Lvl (test code = Sodium Lvl) 135 135-145 [facility]2020-06-13 09:06:00 Test Item Value Reference Range Interpretation Comments Potassium Lvl (test code = Potassium 4.1 3.5-5.1 Lvl) [facility]2020-06-13 09:06:00 Test Item Value Reference Range Interpretation Comments Chloride Lvl (test code = Chloride Lvl) 103 95-109 [facility]2020-06-13 09:06:00 Test Item Value Reference Range Interpretation Comments CO2 (test code = CO2) 22 24-32 [facility]2020-06-13 09:06:00 Test Item Value Reference Range Interpretation Comments AGAP (test code = AGAP) 14.1 10.0-20.0 [facility]2020-06-13 09:06:00 Test Item Value Reference Range Interpretation Comments Calcium Lvl (test code = Calcium Lvl) 9.9 8.5-10.5 [facility]2020-06-13 09:06:00 Test Item Value Reference Range Interpretation Comments eGFR (test code = eGFR) 69 [facility] [id number] 09:06:00 Test Item Value Reference Range Interpretation Comments Eosinophils (test code = 0.1 See_Comment [A utomated message] The Eosinophils) system which ge nerated this result tra nsmitted reference range : <=4.0. The reference r chase was not used to int erpret this result as normal/abnormal . [facility] [id number] 09:06:00 Test Item Value Reference Range Interpretation Comments Basophils (test code = 0.3 See_Comment [Aut omated message] The Basophils) system which ge nerated this result tra nsmitted reference range : <=1.0. The reference r chase was not used to int erpret this result as normal/abnormal . [facility] Cent[id number] 09:06:00 Test Item Value Reference Range Interpretation Comments Basophils # (test code 0.1 See_Comment [Aut omated message] The = Basophils #) system which generated this result tra nsmitted reference range : <=0.2. The reference r chase was not used to int erpret this result as normal/abnormal . [facility] CenterGram Stain [id number] 09:06:00 Test Item Value Reference Range Interpretation Comments Gram Stain Report Moderate WBC's Moderate (test code = Gram Gram Positive Cocci In Stain Report) Clusters [facility] CenterCulture: Wound/Abscess w/Gram [id number] 09:06:00 Test Item Value Reference Range Interpretation Comments Culture: Moderate Streptococcus Wound/Abscess anginosus . Few w/Gram Stain (test Staphylococcus Species, Not code = Culture: S. aureus Wound/Abscess w/Gram Stain) [facility] CenterStreptococcus [id number] 09:06:00 Test Item Value Reference Range Interpretation Comments Streptococcus anginosus Streptococcus (test code = anginosus Streptococcus anginosus) [facility] [id number] 09:06:00 Test Item Value Reference Range Interpretation Comments Glucose Lvl (test code = Glucose Lvl) 205 70-99 [facility] [id number] 09:06:00 Test Item Value Reference Range Interpretation Comments BUN (test code = BUN) 10 7-[address] CenterAlt[facility] [id number] 09:06:00 Test Item Value Reference Range Interpretation Comments Creatinine Lvl (test code = Creatinine 0.91 0.50-1.40 Lvl) [place] 763680-06-13 09:06:00 Test Item Value Reference Range Interpretation Comments Sodium Lvl (test code = Sodium Lvl) 135 135-145 [place] 763680-06-13 09:06:00 Test Item Value Reference Range Interpretation Comments Potassium Lvl (test code = Potassium 4.1 3.5-5.1 Lvl) [place] 763680-06-13 09:06:00 Test Item Value Reference Range Interpretation Comments Chloride Lvl (test code = Chloride Lvl) 103 95-109 [place] 763680-06-13 09:06:00 Test Item Value Reference Range Interpretation Comments CO2 (test code = CO2) 22 24-32 [place] [address]-06-13 09:06:00 Test Item Value Reference Range Interpretation Comments AGAP (test code = AGAP) 14.1 10.0-20.0 [place] 763680-06-13 09:06:00 Test Item Value Reference Range Interpretation Comments Calcium Lvl (test code = Calcium Lvl) 9.9 8.5-10.5 [place] 763680-06-13 09:06:00 Test Item Value Reference Range Interpretation Comments eGFR (test code = eGFR) 69 [place] 789280-06-13 09:06:00 Test Item Value Reference Range Interpretation Comments Eosinophils (test code = 0.1 See_Comment [A utomated message] The Eosinophils) system which ge nerated this result tra nsmitted reference range : <=4.0. The reference r chase was not used to int erpret this result as normal/abnormal . [place] 789280-06-13 09:06:00 Test Item Value Reference Range Interpretation Comments Basophils (test code = 0.3 See_Comment [Aut omated message] The Basophils) system which ge nerated this result tra nsmitted reference range : <=1.0. The reference r chase was not used to int erpret this result as normal/abnormal . [place] [address]-06-13 09:06:00 Test Item Value Reference Range Interpretation Comments Basophils # (test code 0.1 See_Comment [Aut omated message] The = Basophils #) system which generated this result tra nsmitted reference range : <=0.2. The reference r chase was not used to int erpret this result as normal/abnormal . [facility] CenterGram Stain [id number] 09:06:00 Test Item Value Reference Range Interpretation Comments Gram Stain Report Moderate WBC's Moderate (test code = Gram Gram Positive Cocci In Stain Report) Clusters [facility]Culture: Wound/Abscess w/Gram [id number] 09:06:00 Test Item Value Reference Range Interpretation Comments Culture: Moderate Streptococcus Wound/Abscess anginosus . Few w/Gram Stain (test Staphylococcus Species, Not code = Culture: S. aureus Wound/Abscess w/Gram Stain) [facility] [id number] 09:06:00 Test Item Value Reference Range Interpretation Comments Streptococcus anginosus Streptococcus (test code = anginosus Streptococcus anginosus) [facility] CenterAlt[facility] [id number] 09:06:00 Test Item Value Reference Range Interpretation Comments Glucose Lvl (test code = Glucose Lvl) 205 70-[address] [facility] Center[facility] [id number] 09:06:00 Test Item Value Reference Range Interpretation Comments BUN (test code = BUN) 10 7-22 [facility]2020-06-13 09:06:00 Test Item Value Reference Range Interpretation Comments Creatinine Lvl (test code = Creatinine 0.91 0.50-1.40 Lvl) [facility]2020-06-13 09:06:00 Test Item Value Reference Range Interpretation Comments Sodium Lvl (test code = Sodium Lvl) 135 135-[address] [facility] Center[facility] [id number] 09:06:00 Test Item Value Reference Range Interpretation Comments Potassium Lvl (test code = Potassium 4.1 3.5-5.1 Lvl) [facility] Center[facility] [id number] 09:06:00 Test Item Value Reference Range Interpretation Comments Chloride Lvl (test code = Chloride Lvl) 103 95-109 [facility]2020-06-13 09:06:00 Test Item Value Reference Range Interpretation Comments CO2 (test code = CO2) 22 24-32 [facility]2020-06-13 09:06:00 Test Item Value Reference Range Interpretation Comments AGAP (test code = AGAP) 14.1 10.0-20.0 [facility] [id number] 09:06:00 Test Item Value Reference Range Interpretation Comments Calcium Lvl (test code = Calcium Lvl) 9.9 8.5-10.5 [facility] [id number] 09:06:00 Test Item Value Reference Range Interpretation Comments eGFR (test code = eGFR) 69 [facility] CenterRjqzzrpNAKMKDMUTF5644-85-54 09:06:00 Test Item Value Reference Range Interpretation Comments Eosinophils (test code = 0.1 See_Comment [A utomated message] The Eosinophils) system which ge nerated this result tra nsmitted reference range : <=4.0. The reference r chase was not used to int erpret this result as normal/abnormal . [facility] Cent[id number] 09:06:00 Test Item Value Reference Range Interpretation Comments Basophils (test code = 0.3 See_Comment [Aut omated message] The Basophils) system which ge nerated this result tra nsmitted reference range : <=1.0. The reference r chase was not used to int erpret this result as normal/abnormal . [facility] [id number] 09:06:00 Test Item Value Reference Range Interpretation Comments Basophils # (test code 0.1 See_Comment [Aut omated message] The = Basophils #) system which generated this result tra nsmitted reference range : <=0.2. The reference r chase was not used to int erpret this result as normal/abnormal . [facility] CenterGram Stain [id number] 09:06:00 Test Item Value Reference Range Interpretation Comments Gram Stain Report Moderate WBC's Moderate (test code = Gram Gram Positive Cocci In Stain Report) Clusters [facility] CenterCulture: Wound/Abscess w/Gram [id number] 09:06:00 Test Item Value Reference Range Interpretation Comments Culture: Moderate Streptococcus Wound/Abscess anginosus . Few w/Gram Stain (test Staphylococcus Species, Not code = Culture: S. aureus Wound/Abscess w/Gram Stain) [facility] CenterStreptococcus [id number] 09:06:00 Test Item Value Reference Range Interpretation Comments Streptococcus anginosus Streptococcus (test code = anginosus Streptococcus anginosus) [place] 763680-06-13 09:06:00 Test Item Value Reference Range Interpretation Comments Glucose Lvl (test code = Glucose Lvl) 205 70-99 [place] 763680-06-13 09:06:00 Test Item Value Reference Range Interpretation Comments BUN (test code = BUN) 10 7-22 [place] 763680-06-13 09:06:00 Test Item Value Reference Range Interpretation Comments Creatinine Lvl (test code = Creatinine 0.91 0.50-1.40 Lvl) [place] 763680-06-13 09:06:00 Test Item Value Reference Range Interpretation Comments Sodium Lvl (test code = Sodium Lvl) 135 135-145 [place] 763680-06-13 09:06:00 Test Item Value Reference Range Interpretation Comments Potassium Lvl (test code = Potassium 4.1 3.5-5.1 Lvl) [place] 763680-06-13 09:06:00 Test Item Value Reference Range Interpretation Comments Chloride Lvl (test code = Chloride Lvl) 103 95-109 [place] 763680-06-13 09:06:00 Test Item Value Reference Range Interpretation Comments CO2 (test code = CO2) 22 24-32 [place] 763680-06-13 09:06:00 Test Item Value Reference Range Interpretation Comments AGAP (test code = AGAP) 14.1 10.0-20.0 [place] 763680-06-13 09:06:00 Test Item Value Reference Range Interpretation Comments Calcium Lvl (test code = Calcium Lvl) 9.9 8.5-10.5 [place] 763680-06-13 09:06:00 Test Item Value Reference Range Interpretation Comments eGFR (test code = eGFR) 69 [place] 789280-06-13 09:06:00 Test Item Value Reference Range Interpretation Comments Eosinophils (test code = 0.1 See_Comment [A utomated message] The Eosinophils) system which ge nerated this result tra nsmitted reference range : <=4.0. The reference r chase was not used to int erpret this result as normal/abnormal . [place] 789280-06-13 09:06:00 Test Item Value Reference Range Interpretation Comments Basophils (test code = 0.3 See_Comment [Aut omated message] The Basophils) system which ge nerated this result tra nsmitted reference range : <=1.0. The reference r chase was not used to int erpret this result as normal/abnormal . [facility] [id number] 09:06:00 Test Item Value Reference Range Interpretation Comments Basophils # (test code 0.1 See_Comment [Aut omated message] The = Basophils #) system which generated this result tra nsmitted reference range : <=0.2. The reference r chase was not used to int erpret this result as normal/abnormal . [facility] CenterGram Stain [id number] 09:06:00 Test Item Value Reference Range Interpretation Comments Gram Stain Report Moderate WBC's Moderate (test code = Gram Gram Positive Cocci In Stain Report) Clusters [facility] America[facility]Culture: Wound/Abscess w/Gram [id number] 09:06:00 Test Item Value Reference Range Interpretation Comments Culture: Moderate Streptococcus Wound/Abscess anginosus . Few w/Gram Stain (test Staphylococcus Species, Not code = Culture: S. aureus Wound/Abscess w/Gram Stain) [facility] CenterStreptococcus [id number] 09:06:00 Test Item Value Reference Range Interpretation Comments Streptococcus anginosus Streptococcus (test code = anginosus Streptococcus anginosus) [facility] [id number] 09:06:00 Test Item Value Reference Range Interpretation Comments Glucose Lvl (test code = Glucose Lvl) 205 70-99 [facility] [id number] 09:06:00 Test Item Value Reference Range Interpretation Comments BUN (test code = BUN) 10 7-22 [facility] [id number] 09:06:00 Test Item Value Reference Range Interpretation Comments Creatinine Lvl (test code = Creatinine 0.91 0.50-1.40 Lvl) [facility] [id number] 09:06:00 Test Item Value Reference Range Interpretation Comments Sodium Lvl (test code = Sodium Lvl) 135 135-145 [facility] [id number] 09:06:00 Test Item Value Reference Range Interpretation Comments Potassium Lvl (test code = Potassium 4.1 3.5-5.1 Lvl) [facility] AmericaannCHEM [id number] 09:06:00 Test Item Value Reference Range Interpretation Comments Chloride Lvl (test code = Chloride Lvl) 103 95-109 [facility] [id number] 09:06:00 Test Item Value Reference Range Interpretation Comments CO2 (test code = CO2) 22 24-32 [facility] [id number] 09:06:00 Test Item Value Reference Range Interpretation Comments AGAP (test code = AGAP) 14.1 10.0-20.0 [facility] [id number] 09:06:00 Test Item Value Reference Range Interpretation Comments Calcium Lvl (test code = Calcium Lvl) 9.9 8.5-10.5 [facility] [id number] 09:06:00 Test Item Value Reference Range Interpretation Comments eGFR (test code = eGFR) 69 [place] [id number]00 Test Item Value Reference Range Interpretation Comments Eosinophils (test code = 0.1 See_Comment [A utomated message] The Eosinophils) system which ge nerated this result tra nsmitted reference range : <=4.0. The reference r chase was not used to int erpret this result as normal/abnormal . [facility] C[id number] 09:06:00 Test Item Value Reference Range Interpretation Comments Basophils (test code = 0.3 See_Comment [Aut omated message] The Basophils) system which ge nerated this result tra nsmitted reference range : <=1.0. The reference r chase was not used to int erpret this result as normal/abnormal . [facility] [id number] 09:06:00 Test Item Value Reference Range Interpretation Comments Basophils # (test code 0.1 See_Comment [Aut omated message] The = Basophils #) system which generated this result tra nsmitted reference range : <=0.2. The reference r chase was not used to int erpret this result as normal/abnormal . [facility] CenterGram Stain [id number] 09:06:00 Test Item Value Reference Range Interpretation Comments Gram Stain Report Moderate WBC's Moderate (test code = Gram Gram Positive Cocci In Stain Report) Clusters [facility] CenterCulture: Wound/Abscess w/Gram [id number] 09:06:00 Test Item Value Reference Range Interpretation Comments Culture: Moderate Streptococcus Wound/Abscess anginosus . Few w/Gram Stain (test Staphylococcus Species, Not code = Culture: S. aureus Wound/Abscess w/Gram Stain) [facility] CenterStsymoneus [id number] 09:06:00 Test Item Value Reference Range Interpretation Comments Streptococcus anginosus Streptococcus (test code = anginosus Streptococcus anginosus) [facility]2020-06-13 09:06:00 Test Item Value Reference Range Interpretation Comments Glucose Lvl (test code = Glucose Lvl) 205 70-99 [facility]2020-06-13 09:06:00 Test Item Value Reference Range Interpretation Comments BUN (test code = BUN) 10 7-22 [facility]2020-06-13 09:06:00 Test Item Value Reference Range Interpretation Comments Creatinine Lvl (test code = Creatinine 0.91 0.50-1.40 Lvl) [facility]2020-06-13 09:06:00 Test Item Value Reference Range Interpretation Comments Sodium Lvl (test code = Sodium Lvl) 135 135-145 [facility]2020-06-13 09:06:00 Test Item Value Reference Range Interpretation Comments Potassium Lvl (test code = Potassium 4.1 3.5-5.1 Lvl) [facility]2020-06-13 09:06:00 Test Item Value Reference Range Interpretation Comments Chloride Lvl (test code = Chloride Lvl) 103 95-109 [facility]2020-06-13 09:06:00 Test Item Value Reference Range Interpretation Comments CO2 (test code = CO2) 22 24-32 [facility]2020-06-13 09:06:00 Test Item Value Reference Range Interpretation Comments AGAP (test code = AGAP) 14.1 10.0-20.0 [facility]2020-06-13 09:06:00 Test Item Value Reference Range Interpretation Comments Calcium Lvl (test code = Calcium Lvl) 9.9 8.5-10.5 [facility]2020-06-13 09:06:00 Test Item Value Reference Range Interpretation Comments eGFR (test code = eGFR) 69 [id number] 09:06:00 Test Item Value Reference Range Interpretation Comments Eosinophils (test code = 0.1 See_Comment [A utomated message] The Eosinophils) system which ge nerated this result tra nsmitted reference range : <=4.0. The reference r chase was not used to int erpret this result as normal/abnormal . [facility] [id number] 09:06:00 Test Item Value Reference Range Interpretation Comments Basophils (test code = 0.3 See_Comment [Aut omated message] The Basophils) system which ge nerated this result tra nsmitted reference range : <=1.0. The reference r chase was not used to int erpret this result as normal/abnormal . [facility] [id number] 09:06:00 Test Item Value Reference Range Interpretation Comments Basophils # (test code 0.1 See_Comment [Aut omated message] The = Basophils #) system which generated this result tra nsmitted reference range : <=0.2. The reference r chase was not used to int erpret this result as normal/abnormal . [facility] CenterGram Stain [id number] 09:06:00 Test Item Value Reference Range Interpretation Comments Gram Stain Report Moderate WBC's Moderate (test code = Gram Gram Positive Cocci In Stain Report) Clusters [facility] CenterCulture: Wound/Abscess w/Gram [id number] 09:06:00 Test Item Value Reference Range Interpretation Comments Culture: Moderate Streptococcus Wound/Abscess anginosus . Few w/Gram Stain (test Staphylococcus Species, Not code = Culture: S. aureus Wound/Abscess w/Gram Stain) [facility] CenterStreptococcus [id number] 09:06:00 Test Item Value Reference Range Interpretation Comments Streptococcus anginosus Streptococcus (test code = anginosus Streptococcus anginosus) [facility] [id number] 09:06:00 Test Item Value Reference Range Interpretation Comments Glucose Lvl (test code = Glucose Lvl) 205 70-99 [facility] [id number] 09:06:00 Test Item Value Reference Range Interpretation Comments BUN (test code = BUN) 10 7-22 [facility] [id number] 09:06:00 Test Item Value Reference Range Interpretation Comments Creatinine Lvl (test code = Creatinine 0.91 0.50-1.40 Lvl) [place] [id number] 09:06:00 Test Item Value Reference Range Interpretation Comments Sodium Lvl (test code = Sodium Lvl) 135 135-145 [place] [address]-06-13 09:06:00 Test Item Value Reference Range Interpretation Comments Potassium Lvl (test code = Potassium 4.1 3.5-5.1 Lvl) [place] [id number] 09:06:00 Test Item Value Reference Range Interpretation Comments Chloride Lvl (test code = Chloride Lvl) 103 95-109 [place] [address]-06-13 09:06:00 Test Item Value Reference Range Interpretation Comments CO2 (test code = CO2) 22 24-32 [place] [address]-06-13 09:06:00 Test Item Value Reference Range Interpretation Comments AGAP (test code = AGAP) 14.1 10.0-20.0 [place] [address]-06-13 09:06:00 Test Item Value Reference Range Interpretation Comments Calcium Lvl (test code = Calcium Lvl) 9.9 8.5-10.5 [place] [address]-06-13 09:06:00 Test Item Value Reference Range Interpretation Comments eGFR (test code = eGFR) 69 [place] [address]-06-13 09:06:00 Test Item Value Reference Range Interpretation Comments Eosinophils (test code = 0.1 See_Comment [A utomated message] The Eosinophils) system which ge nerated this result tra nsmitted reference range : <=4.0. The reference r chase was not used to int erpret this result as normal/abnormal . [place] [id number] 09:06:00 Test Item Value Reference Range Interpretation Comments Basophils (test code = 0.3 See_Comment [Aut omated message] The Basophils) system which ge nerated this result tra nsmitted reference range : <=1.0. The reference r chase was not used to int erpret this result as normal/abnormal . [place] [address]-06-13 09:06:00 Test Item Value Reference Range Interpretation Comments Basophils # (test code 0.1 See_Comment [Aut omated message] The = Basophils #) system which generated this result tra nsmitted reference range : <=0.2. The reference r chase was not used to int erpret this result as normal/abnormal . [facility] CenterGram Stain [id number] 09:06:00 Test Item Value Reference Range Interpretation Comments Gram Stain Report Moderate WBC's Moderate (test code = Gram Gram Positive Cocci In Stain Report) Clusters [facility] CenterCulture: Wound/Abscess w/Gram [id number] 09:06:00 Test Item Value Reference Range Interpretation Comments Culture: Moderate Streptococcus Wound/Abscess anginosus . Few w/Gram Stain (test Staphylococcus Species, Not code = Culture: S. aureus Wound/Abscess w/Gram Stain) [facility] CenterStreptococcus [id number] 09:06:00 Test Item Value Reference Range Interpretation Comments Streptococcus anginosus Streptococcus (test code = anginosus Streptococcus anginosus) [facility] CenterAltius Education [id number] 09:06:00 Test Item Value Reference Range Interpretation Comments Glucose Lvl (test code = Glucose Lvl) 205 70-[address] [facility] CenterAlt[facility] Education [id number] 09:06:00 Test Item Value Reference Range Interpretation Comments BUN (test code = BUN) 10 7-[address] [facility] CenterAlt[facility] Education [id number] 09:06:00 Test Item Value Reference Range Interpretation Comments Creatinine Lvl (test code = Creatinine 0.91 0.50-1.40 Lvl) [facility] [id number] 09:06:00 Test Item Value Reference Range Interpretation Comments Sodium Lvl (test code = Sodium Lvl) 135 135-145 [facility] [id number] 09:06:00 Test Item Value Reference Range Interpretation Comments Potassium Lvl (test code = Potassium 4.1 3.5-5.1 Lvl) [facility] [id number] 09:06:00 Test Item Value Reference Range Interpretation Comments Chloride Lvl (test code = Chloride Lvl) 103 95-109 [facility] [id number] 09:06:00 Test Item Value Reference Range Interpretation Comments CO2 (test code = CO2) 22 24-[address] [facility] CenterAlt[facility] Education [id number] 09:06:00 Test Item Value Reference Range Interpretation Comments AGAP (test code = AGAP) 14.1 10.0-20.0 [facility] AmericaannCHEM [id number] 09:06:00 Test Item Value Reference Range Interpretation Comments Calcium Lvl (test code = Calcium Lvl) 9.9 8.5-10.[address] CenterCHEM [id number] 09:06:00 Test Item Value Reference Range Interpretation Comments eGFR (test code = eGFR) [address] [facility] [id number] 09:06:00 Test Item Value Reference Range Interpretation Comments Eosinophils (test code = Eosinophils) 0.1 <=4.0 [facility] [id number] 09:06:00 Test Item Value Reference Range Interpretation Comments Basophils (test code = Basophils) 0.3 <=1.0 [facility] [id number] 09:06:00 Test Item Value Reference Range Interpretation Comments Basophils # (test code = Basophils #) 0.1 <=0.2 [facility] AmericaannGram Stain [id number] 09:06:00 Test Item Value Reference Range Interpretation Comments Gram Stain Report Moderate WBC's Moderate (test code = Gram Gram Positive Cocci In Stain Report) Clusters [facility] CenterCulture: Wound/Abscess w/Gram [id number] 09:06:00 Test Item Value Reference Range Interpretation Comments Culture: Moderate Streptococcus Wound/Abscess anginosus . Few w/Gram Stain (test Staphylococcus Species, Not code = Culture: S. aureus Wound/Abscess w/Gram Stain) [facility] CenterStreptococcus [id number] 09:06:00 Test Item Value Reference Range Interpretation Comments Streptococcus anginosus Streptococcus (test code = anginosus Streptococcus anginosus) [facility] CenterCulture: [id number] 00:35:00 Test Item Value Reference Range Interpretation Comments Culture: Anaerobic Moderate Prevotella (test code = Culture: bivia Beta Lactamase Anaerobic) Positive [facility] CenterPrevotella [id number] 00:35:00 Test Item Value Reference Range Interpretation Comments Prevotella bivia (test code Prevotella bivia = Prevotella bivia) [facility] AmericaannGram Stain [id number] 00:35:00 Test Item Value Reference Range Interpretation Comments Gram Stain Report Few WBC's Few Gram (test code = Gram Positive Cocci In Stain Report) [facility] Wound/Abscess w/Gram [id number] 00:35:00 Test Item Value Reference Range Interpretation Comments Culture: Moderate Streptococcus Wound/Abscess anginosus . No w/Gram Stain (test susceptibility performed code = Culture: since these organisms are Wound/Abscess predictably susceptible to w/Gram Stain) penicillin. If patient is penicillin allergic or susceptibility testing for additional antibiotics is clinically warranted please call the laboratory. [facility] AmericaannStreptococcus [id number] 00:35:00 Test Item Value Reference Range Interpretation Comments Streptococcus anginosus Streptococcus (test code = anginosus Streptococcus anginosus) [facility] AmericaannCulture: [id number] 00:35:00 Test Item Value Reference Range Interpretation Comments Culture: Anaerobic Moderate Prevotella (test code = Culture: bivia Beta Lactamase Anaerobic) Positive [facility] CenterPrevotella [id number] 00:35:00 Test Item Value Reference Range Interpretation Comments Prevotella bivia (test code Prevotella bivia = Prevotella bivia) [facility] AmericaannGram Stain [id number] 00:35:00 Test Item Value Reference Range Interpretation Comments Gram Stain Report Few WBC's Few Gram (test code = Gram Positive Cocci In Stain Report) [facility]lt[facility]: Wound/Abscess w/Gram [id number] 00:35:00 Test Item Value Reference Range Interpretation Comments Culture: Moderate Streptococcus Wound/Abscess anginosus . No w/Gram Stain (test susceptibility performed code = Culture: since these organisms are Wound/Abscess predictably susceptible to w/Gram Stain) penicillin. If patient is penicillin allergic or susceptibility testing for additional antibiotics is clinically warranted please call the laboratory. [facility] AmericaannStreptococcus [id number] 00:35:00 Test Item Value Reference Range Interpretation Comments Streptococcus anginosus Streptococcus (test code = anginosus Streptococcus anginosus) [facility] AmericaannCulture: [id number] 00:35:00 Test Item Value Reference Range Interpretation Comments Culture: Anaerobic Moderate Prevotella (test code = Culture: bivia Beta Lactamase Anaerobic) Positive [facility] CenterPrevotella [id number] 00:35:00 Test Item Value Reference Range Interpretation Comments Prevotella bivia (test code Prevotella bivia = Prevotella bivia) [facility] AmericaannGram Stain [id number] 00:35:00 Test Item Value Reference Range Interpretation Comments Gram Stain Report Few WBC's Few Gram (test code = Gram Positive Cocci In Stain Report) [facility]: Wound/Abscess w/Gram [id number] 00:35:00 Test Item Value Reference Range Interpretation Comments Culture: Moderate Streptococcus Wound/Abscess anginosus . No w/Gram Stain (test susceptibility performed code = Culture: since these organisms are Wound/Abscess predictably susceptible to w/Gram Stain) penicillin. If patient is penicillin allergic or susceptibility testing for additional antibiotics is clinically warranted please call the laboratory. [facility] CenterNellytococcus [id number] 00:35:00 Test Item Value Reference Range Interpretation Comments Streptococcus anginosus Streptococcus (test code = anginosus Streptococcus anginosus) [facility]: [id number] 00:35:00 Test Item Value Reference Range Interpretation Comments Culture: Anaerobic Moderate Prevotella (test code = Culture: bivia Beta Lactamase Anaerobic) Positive [facility] CenterPrevotella [id number] 00:35:00 Test Item Value Reference Range Interpretation Comments Prevotella bivia (test code Prevotella bivia = Prevotella bivia) [facility] AmericaannGram Stain [id number] 00:35:00 Test Item Value Reference Range Interpretation Comments Gram Stain Report Few WBC's Few Gram (test code = Gram Positive Cocci In Stain Report) [facility]: Wound/Abscess w/Gram [id number] 00:35:00 Test Item Value Reference Range Interpretation Comments Culture: Moderate Streptococcus Wound/Abscess anginosus . No w/Gram Stain (test susceptibility performed code = Culture: since these organisms are Wound/Abscess predictably susceptible to w/Gram Stain) penicillin. If patient is penicillin allergic or susceptibility testing for additional antibiotics is clinically warranted please call the laboratory. [facility] AmericaannStreptococcus [id number] 00:35:00 Test Item Value Reference Range Interpretation Comments Streptococcus anginosus Streptococcus (test code = anginosus Streptococcus anginosus) [facility] AmericaannCulture: [id number] 00:35:00 Test Item Value Reference Range Interpretation Comments Culture: Anaerobic Moderate Prevotella (test code = Culture: bivia Beta Lactamase Anaerobic) Positive [facility] CenterPrevotella [id number] 00:35:00 Test Item Value Reference Range Interpretation Comments Prevotella bivia (test code Prevotella bivia = Prevotella bivia) [facility] AmericaannGram Stain [id number] 00:35:00 Test Item Value Reference Range Interpretation Comments Gram Stain Report Few WBC's Few Gram (test code = Gram Positive Cocci In Stain Report) [facility] Hospitallture: Wound/Abscess w/Gram [id number] 00:35:00 Test Item Value Reference Range Interpretation Comments Culture: Moderate Streptococcus Wound/Abscess anginosus . No w/Gram Stain (test susceptibility performed code = Culture: since these organisms are Wound/Abscess predictably susceptible to w/Gram Stain) penicillin. If patient is penicillin allergic or susceptibility testing for additional antibiotics is clinically warranted please call the laboratory. [facility] CenterStreptococcus [id number] 00:35:00 Test Item Value Reference Range Interpretation Comments Streptococcus anginosus Streptococcus (test code = anginosus Streptococcus anginosus) [facility]: [id number] 00:35:00 Test Item Value Reference Range Interpretation Comments Culture: Anaerobic Moderate Prevotella (test code = Culture: bivia Beta Lactamase Anaerobic) [facility]ervot[facility] [id number] 00:35:00 Test Item Value Reference Range Interpretation Comments Prevotella bivia (test code Prevotella bivia = Prevotella bivia) [facility] AmericaannGram Stain [id number] 00:35:00 Test Item Value Reference Range Interpretation Comments Gram Stain Report Few WBC's Few Gram (test code = Gram Positive Cocci In Stain Report) [facility] AmericaannCulture: Wound/Abscess w/Gram [id number] 00:35:00 Test Item Value Reference Range Interpretation Comments Culture: Moderate Streptococcus Wound/Abscess anginosus . No w/Gram Stain (test susceptibility performed code = Culture: since these organisms are Wound/Abscess predictably susceptible to w/Gram Stain) penicillin. If patient is penicillin allergic or susceptibility testing for additional antibiotics is clinically warranted please call the laboratory. [facility] Kendallcc [id number] 00:35:00 Test Item Value Reference Range Interpretation Comments Streptococcus anginosus Streptococcus (test code = anginosus Streptococcus anginosus) [facility]annCulture: [id number] 00:35:00 Test Item Value Reference Range Interpretation Comments Culture: Anaerobic Moderate Prevotella (test code = Culture: bivia Beta Lactamase Anaerobic) Positive [facility] CenterPrevotella [id number] 00:35:00 Test Item Value Reference Range Interpretation Comments Prevotella bivia (test code Prevotella bivia = Prevotella bivia) [facility]annGram Stain [id number] 00:35:00 Test Item Value Reference Range Interpretation Comments Gram Stain Report Few WBC's Few Gram (test code = Gram Positive Cocci In Stain Report) [facility]: Wound/Abscess w/Gram [id number] 00:35:00 Test Item Value Reference Range Interpretation Comments Culture: Moderate Streptococcus Wound/Abscess anginosus . No w/Gram Stain (test susceptibility performed code = Culture: since these organisms are Wound/Abscess predictably susceptible to w/Gram Stain) penicillin. If patient is penicillin allergic or susceptibility testing for additional antibiotics is clinically warranted please call the laboratory. [facility] CenterMckaylaccus [id number] 00:35:00 Test Item Value Reference Range Interpretation Comments Streptococcus anginosus Streptococcus (test code = anginosus Streptococcus anginosus) [facility] CenterCulture: [id number] 00:35:00 Test Item Value Reference Range Interpretation Comments Culture: Anaerobic Moderate Prevotella (test code = Culture: bivia Beta Lactamase Anaerobic) Positive [facility]ervot[facility] [id number] 00:35:00 Test Item Value Reference Range Interpretation Comments Prevotella bivia (test code Prevotella bivia = Prevotella bivia) [facility]annGram Stain [id number] 00:35:00 Test Item Value Reference Range Interpretation Comments Gram Stain Report Few WBC's Few Gram (test code = Gram Positive Cocci In Stain Report) [facility] CenterCulture: Wound/Abscess w/Gram [id number] 00:35:00 Test Item Value Reference Range Interpretation Comments Culture: Moderate Streptococcus Wound/Abscess anginosus . No w/Gram Stain (test susceptibility performed code = Culture: since these organisms are Wound/Abscess predictably susceptible to w/Gram Stain) penicillin. If patient is penicillin allergic or susceptibility testing for additional antibiotics is clinically warranted please call the laboratory. [facility] AmericaannStreptococcus [id number] 00:35:00 Test Item Value Reference Range Interpretation Comments Streptococcus anginosus Streptococcus (test code = anginosus Streptococcus anginosus) [facility] CenterCulture: [id number] 00:35:00 Test Item Value Reference Range Interpretation Comments Culture: Anaerobic Moderate Prevotella (test code = Culture: bivia Beta Lactamase Anaerobic) Positive [facility] CenterPrevotella [id number] 00:35:00 Test Item Value Reference Range Interpretation Comments Prevotella bivia (test code Prevotella bivia = Prevotella bivia) [facility] CenterGram Stain [id number] 00:35:00 Test Item Value Reference Range Interpretation Comments Gram Stain Report Few WBC's Few Gram (test code = Gram Positive Cocci In Stain Report) [facility]: Wound/Abscess w/Gram [id number] 00:35:00 Test Item Value Reference Range Interpretation Comments Culture: Moderate Streptococcus Wound/Abscess anginosus . No w/Gram Stain (test susceptibility performed code = Culture: since these organisms are Wound/Abscess predictably susceptible to w/Gram Stain) penicillin. If patient is penicillin allergic or susceptibility testing for additional antibiotics is clinically warranted please call the laboratory. [facility] [id number] 00:35:00 Test Item Value Reference Range Interpretation Comments Streptococcus anginosus Streptococcus (test code = anginosus Streptococcus anginosus) [facility] AmericaannCulture: [id number] 00:35:00 Test Item Value Reference Range Interpretation Comments Culture: Anaerobic Moderate Prevotella (test code = Culture: bivia Beta Lactamase Anaerobic) Positive [facility] CenterPrevotella [id number] 00:35:00 Test Item Value Reference Range Interpretation Comments Prevotella bivia (test code Prevotella bivia = Prevotella bivia) [facility]ann[facility] Stain [id number] 00:35:00 Test Item Value Reference Range Interpretation Comments Gram Stain Report Few WBC's Few Gram (test code = Gram Positive Cocci In Stain Report) [facility] Wound/Abscess w/Gram [id number] 00:35:00 Test Item Value Reference Range Interpretation Comments Culture: Moderate Streptococcus Wound/Abscess anginosus . No w/Gram Stain (test susceptibility performed code = Culture: since these organisms are Wound/Abscess predictably susceptible to w/Gram Stain) penicillin. If patient is penicillin allergic or susceptibility testing for additional antibiotics is clinically warranted please call the laboratory. [facility] Centerreptococcus [id number] 00:35:00 Test Item Value Reference Range Interpretation Comments Streptococcus anginosus Streptococcus (test code = anginosus Streptococcus anginosus) [facility]: [id number] 00:35:00 Test Item Value Reference Range Interpretation Comments Culture: Anaerobic Moderate Prevotella (test code = Culture: bivia Beta Lactamase Anaerobic) Positive [facility] CenterPrevotella [id number] 00:35:00 Test Item Value Reference Range Interpretation Comments Prevotella bivia (test code Prevotella bivia = Prevotella bivia) [facility]Gram Stain [id number] 00:35:00 Test Item Value Reference Range Interpretation Comments Gram Stain Report Few WBC's Few Gram (test code = Gram Positive Cocci In Stain Report) [facility]ains [facility] CenterCulture: Wound/Abscess w/Gram [id number] 00:35:00 Test Item Value Reference Range Interpretation Comments Culture: Moderate Streptococcus Wound/Abscess anginosus . No w/Gram Stain (test susceptibility performed code = Culture: since these organisms are Wound/Abscess predictably susceptible to w/Gram Stain) penicillin. If patient is penicillin allergic or susceptibility testing for additional antibiotics is clinically warranted please call the laboratory. [facility] CenterStreptococcus [id number] 00:35:00 Test Item Value Reference Range Interpretation Comments Streptococcus anginosus Streptococcus (test code = anginosus Streptococcus anginosus) [facility] CenterCulture: [id number] 00:35:00 Test Item Value Reference Range Interpretation Comments Culture: Anaerobic Moderate Prevotella (test code = Culture: bivia Beta Lactamase Anaerobic) Positive [facility] CenterPrevotella [id number] 00:35:00 Test Item Value Reference Range Interpretation Comments Prevotella bivia (test code Prevotella bivia = Prevotella bivia) [facility] CenterGram Stain [id number] 00:35:00 Test Item Value Reference Range Interpretation Comments Gram Stain Report Few WBC's Few Gram (test code = Gram Positive Cocci In Stain Report) [facility]: Wound/Abscess w/Gram [id number] 00:35:00 Test Item Value Reference Range Interpretation Comments Culture: Moderate Streptococcus Wound/Abscess anginosus . No w/Gram Stain (test susceptibility performed code = Culture: since these organisms are Wound/Abscess predictably susceptible to w/Gram Stain) penicillin. If patient is penicillin allergic or susceptibility testing for additional antibiotics is clinically warranted please call the laboratory. [facility] CenterStreptococcus [id number] 00:35:00 Test Item Value Reference Range Interpretation Comments Streptococcus anginosus Streptococcus (test code = anginosus Streptococcus anginosus) [facility] [id number] 09:13:00 Test Item Value Reference Range Interpretation Comments Plt Morph (test code = Normal (12/08/19 4:13 Plt Morph) AM) [facility] Cent[id number] 09:13:00 Test Item Value Reference Range Interpretation Comments Basophils (test code = 0.8 See_Comment [Aut omated message] The Basophils) system which ge nerated this result tra nsmitted reference range : <=1.0. The reference r chase was not used to int erpret this result as normal/abnormal . [facility] CenterWfmzryqSZASPDLKBM4292-81-20 09:13:00 Test Item Value Reference Range Interpretation Comments Basophils # (test code 0.2 See_Comment [Aut omated message] The = Basophils #) system which generated this result tra nsmitted reference range : <=0.2. The reference r chase was not used to int erpret this result as normal/abnormal . [facility] CenterMreohezMXXURXUNBL9848-12-57:13:00 Test Item Value Reference Range Interpretation Comments Plt Morph (test code = Normal (12/08/19 4:13 Plt Morph) AM) [facility] CenterHpujpebYMEGFJUFUC2000-51-95:13:00 Test Item Value Reference Range Interpretation Comments Basophils (test code = 0.8 See_Comment [Aut omated message] The Basophils) system which ge nerated this result tra nsmitted reference range : <=1.0. The reference r chase was not used to int erpret this result as normal/abnormal . [facility] CenterZxwyzpmXFEOMTVTNX6729-60-24:13:00 Test Item Value Reference Range Interpretation Comments Basophils # (test code 0.2 See_Comment [Aut omated message] The = Basophils #) system which generated this result tra nsmitted reference range : <=0.2. The reference r chase was not used to int erpret this result as normal/abnormal . [facility] CenterCjbpukzTDHENSXFZF8471-52-29:13:00 Test Item Value Reference Range Interpretation Comments Plt Morph (test code = Normal (12/08/19 4:13 Plt Morph) AM) [facility] CenterMpvkcpfVGDFPJEUOO3392-60-95:13:00 Test Item Value Reference Range Interpretation Comments Basophils (test code = 0.8 See_Comment [Aut omated message] The Basophils) system which ge nerated this result tra nsmitted reference range : <=1.0. The reference r chase was not used to int erpret this result as normal/abnormal . [facility] CenterGtzibfqPDGWTAHHJB2905-87-36:13:00 Test Item Value Reference Range Interpretation Comments Basophils # (test code 0.2 See_Comment [Aut omated message] The = Basophils #) system which generated this result tra nsmitted reference range : <=0.2. The reference r chase was not used to int erpret this result as normal/abnormal . [id number]:13:00 Test Item Value Reference Range Interpretation Comments Plt Morph (test code = Normal (12/08/19 4:13 Plt Morph) AM) [place] [id number] 09:13:00 Test Item Value Reference Range Interpretation Comments Basophils (test code = 0.8 See_Comment [Aut omated message] The Basophils) system which ge nerated this result tra nsmitted reference range : <=1.0. The reference r chase was not used to int erpret this result as normal/abnormal . [facility] CenterMxyvtvoLKXTXCWVBX1992-36-82 09:13:00 Test Item Value Reference Range Interpretation Comments Basophils # (test code 0.2 See_Comment [Aut omated message] The = Basophils #) system which generated this result tra nsmitted reference range : <=0.2. The reference r chase was not used to int erpret this result as normal/abnormal . [facility] CenterKdmkaqhBSNDNTYZYX4330-39-25 09:13:00 Test Item Value Reference Range Interpretation Comments Plt Morph (test code = Normal (12/08/19 4:13 Plt Morph) AM) [facility] CenterMofjscxKXDPAMKXSA6511-63-41 09:13:00 Test Item Value Reference Range Interpretation Comments Basophils (test code = 0.8 See_Comment [Aut omated message] The Basophils) system which ge nerated this result tra nsmitted reference range : <=1.0. The reference r chase was not used to int erpret this result as normal/abnormal . [facility] CenterKwlkcdnHRSOIQFGSE2110-68-04 09:13:00 Test Item Value Reference Range Interpretation Comments Basophils # (test code 0.2 See_Comment [Aut omated message] The = Basophils #) system which generated this result tra nsmitted reference range : <=0.2. The reference r chase was not used to int erpret this result as normal/abnormal . [facility] CenterMtruxfkTVUNJSBMKL0818-31-14:13:00 Test Item Value Reference Range Interpretation Comments Plt Morph (test code = Normal (12/08/19 4:13 Plt Morph) AM) [facility] CenterJvptchaVKJEMUKEVW2919-36-53 09:13:00 Test Item Value Reference Range Interpretation Comments Basophils (test code = 0.8 See_Comment [Aut omated message] The Basophils) system which ge nerated this result tra nsmitted reference range : <=1.0. The reference r chase was not used to int erpret this result as normal/abnormal . [facility] CenterQpqayswPXDYTZXOCF6817-03-45:13:00 Test Item Value Reference Range Interpretation Comments Basophils # (test code 0.2 See_Comment [Aut omated message] The = Basophils #) system which generated this result tra nsmitted reference range : <=0.2. The reference r chase was not used to int erpret this result as normal/abnormal . [facility] CenterRnoulzxEIPEHKHSKN8419-78-91 09:13:00 Test Item Value Reference Range Interpretation Comments Plt Morph (test code = Normal (12/08/19 4:13 Plt Morph) AM) [facility] C[id number] 09:13:00 Test Item Value Reference Range Interpretation Comments Basophils (test code = 0.8 See_Comment [Aut omated message] The Basophils) system which ge nerated this result tra nsmitted reference range : <=1.0. The reference r chase was not used to int erpret this result as normal/abnormal . [facility] CenterYenhozwBOPWMWYVQZ5794-46-28 09:13:00 Test Item Value Reference Range Interpretation Comments Basophils # (test code 0.2 See_Comment [Aut omated message] The = Basophils #) system which generated this result tra nsmitted reference range : <=0.2. The reference r chase was not used to int erpret this result as normal/abnormal . [facility] CenterWbrwsdbNVNXGTCOAX3056-91-96 09:13:00 Test Item Value Reference Range Interpretation Comments Plt Morph (test code = Normal (12/08/19 4:13 Plt Morph) AM) [facility] CenterUvqlajvPBXCJSWRPC9729-22-02 09:13:00 Test Item Value Reference Range Interpretation Comments Basophils (test code = 0.8 See_Comment [Aut omated message] The Basophils) system which ge nerated this result tra nsmitted reference range : <=1.0. The reference r chase was not used to int erpret this result as normal/abnormal . [facility] CenterPlvesvbLZWKZGUQNH9743-17-73 09:13:00 Test Item Value Reference Range Interpretation Comments Basophils # (test code 0.2 See_Comment [Aut omated message] The = Basophils #) system which generated this result tra nsmitted reference range : <=0.2. The reference r chase was not used to int erpret this result as normal/abnormal . [facility] CenterIqbdnisOZTTQCEZVH7265-20-34:13:00 Test Item Value Reference Range Interpretation Comments Plt Morph (test code = Normal (12/08/19 4:13 Plt Morph) AM) [facility] CenterSpfpsjzJWIAXNURVD2342-08-13 09:13:00 Test Item Value Reference Range Interpretation Comments Basophils (test code = 0.8 See_Comment [Aut omated message] The Basophils) system which ge nerated this result tra nsmitted reference range : <=1.0. The reference r chase was not used to int erpret this result as normal/abnormal . [facility] CenterMvtsdnxGUGHCQDRSO5617-31-84:13:00 Test Item Value Reference Range Interpretation Comments Basophils # (test code 0.2 See_Comment [Aut omated message] The = Basophils #) system which generated this result tra nsmitted reference range : <=0.2. The reference r chase was not used to int erpret this result as normal/abnormal . [facility] CenterZmkfmkiCMWIFRBRZR2227-65-37:13:00 Test Item Value Reference Range Interpretation Comments Plt Morph (test code = Normal (12/08/19 4:13 Plt Morph) AM) [place] [id number] 09:13:00 Test Item Value Reference Range Interpretation Comments Basophils (test code = 0.8 See_Comment [Aut omated message] The Basophils) system which ge nerated this result tra nsmitted reference range : <=1.0. The reference r chase was not used to int erpret this result as normal/abnormal . [facility] CenterJnfjyvqIHOEUZLYJE2471-15-47 09:13:00 Test Item Value Reference Range Interpretation Comments Basophils # (test code 0.2 See_Comment [Aut omated message] The = Basophils #) system which generated this result tra nsmitted reference range : <=0.2. The reference r chase was not used to int erpret this result as normal/abnormal . [facility] CenterCecqdjqZIZCPDAUVF1985-35-63:13:00 Test Item Value Reference Range Interpretation Comments Plt Morph (test code = Normal (12/08/19 4:13 Plt Morph) AM) [facility] CenterUpcthkuIUZJUGYPYW6488-01-39 09:13:00 Test Item Value Reference Range Interpretation Comments Basophils (test code = 0.8 See_Comment [Aut omated message] The Basophils) system which ge nerated this result tra nsmitted reference range : <=1.0. The reference r chase was not used to int erpret this result as normal/abnormal . [facility] CenterQyqsxusHUUQDGHFDZ6893-64-59 09:13:00 Test Item Value Reference Range Interpretation Comments Basophils # (test code 0.2 See_Comment [Aut omated message] The = Basophils #) system which generated this result tra nsmitted reference range : <=0.2. The reference r chase was not used to int erpret this result as normal/abnormal . [facility] CenterTlxnlpgNIWAVDNJEH8136-12-96 09:13:00 Test Item Value Reference Range Interpretation Comments Plt Morph (test code = Normal (12/08/19 4:13 Plt Morph) AM) [facility] CenterXnkjeinSWYHRDBYEH1209-45-72 09:13:00 Test Item Value Reference Range Interpretation Comments Basophils (test code = Basophils) 0.8 <=1.0 [facility] CenterDcgnqrnCEZRJPPLJW0509-34-94 09:13:00 Test Item Value Reference Range Interpretation Comments Basophils # (test code = Basophils #) 0.2 <=0.2 [facility] AND [id number] 05:21:00 Test Item Value Reference Range Interpretation Comments UA Color (test code = Yellow *NA*(12/08/19 UA Color) 12:21 AM) [facility] AND [id number] 05:21:00 Test Item Value Reference Range Interpretation Comments UA Turbidity (test code Slight *ABN*(12/08/19 = UA Turbidity) 12:21 AM) [facility] AND [id number] 05:21:00 Test Item Value Reference Range Interpretation Comments UA Spec Grav (test code = UA Spec 1.025 1 Grav) [facility] AND [id number] 05:21:00 Test Item Value Reference Range Interpretation Comments UA pH (test code = UA pH) 6.0 1 5.0-8.0 [facility] AND [id number] 05:21:00 Test Item Value Reference Range Interpretation Comments UA Protein (test code = UA Protein) 30 mg/dL [facility] AND [id number] 05:21:00 Test Item Value Reference Range Interpretation Comments UA Glucose (test code = UA Glucose) 500 mg/dL [facility] AND [id number] 05:21:00 Test Item Value Reference Range Interpretation Comments UA Ketones (test code = UA Ketones) 20 mg/dL [facility] [id number] 05:21:00 Test Item Value Reference Range Interpretation Comments UA Bili (test code = Negative *NA*(12/08/19 UA Bili) 12:21 AM) [facility] [id number] 05:21:00 Test Item Value Reference Range Interpretation Comments UA Blood (test code = Negative (12/08/19 12:21 UA Blood) AM) [facility] [id number] 05:21:00 Test Item Value Reference Range Interpretation Comments UA Nitrite (test code Negative (12/08/19 12:21 = UA Nitrite) AM) [facility] [id number] 05:21:00 Test Item Value Reference Range Interpretation Comments UA Leuk Est (test Negative (12/08/19 12:21 code = UA Leuk Est) AM) [facility] [id number] 05:21:00 Test Item Value Reference Range Interpretation Comments UA Sq Epi (test code = UA Sq Occasional /LPF Epi) [facility] [id number] 05:21:00 Test Item Value Reference Range Interpretation Comments UA WBC (test code = 4 See_Comment [Automa bright message] The UA WBC) system which ge nerated this result transmit bright reference range : <=5. The reference range was not used to interpr et this result as candice l/abnormal. [facility] [id number] 05:21:00 Test Item Value Reference Range Interpretation Comments UA RBC (test code = 1 See_Comment [Automa bright message] The UA RBC) system which ge nerated this result transmit bright reference range : <=2. The reference range was not used to interpr et this result as candice l/abnormal. [facility] [id number] 05:21:00 Test Item Value Reference Range Interpretation Comments UA Urobilinogen (test code = UA <=1.0 mg/dL 0.1-1.0 Urobilinogen) [facility] [id number] 05:21:00 Test Item Value Reference Range Interpretation Comments UA Color (test code = Yellow *NA*(12/08/19 UA Color) 12:21 AM) [facility] [id number] 05:21:00 Test Item Value Reference Range Interpretation Comments UA Turbidity (test code Slight *ABN*(12/08/19 = UA Turbidity) 12:21 AM) [facility] AND [id number] 05:21:00 Test Item Value Reference Range Interpretation Comments UA Spec Grav (test code = UA Spec 1.025 1 Grav) [facility] AND [id number] 05:21:00 Test Item Value Reference Range Interpretation Comments UA pH (test code = UA pH) 6.0 1 5.0-8.0 [facility] AND [id number] 05:21:00 Test Item Value Reference Range Interpretation Comments UA Protein (test code = UA Protein) 30 mg/dL [facility] AND [id number] 05:21:00 Test Item Value Reference Range Interpretation Comments UA Glucose (test code = UA Glucose) 500 mg/dL [facility] AND [id number] 05:21:00 Test Item Value Reference Range Interpretation Comments UA Ketones (test code = UA Ketones) 20 mg/dL [facility] AND [id number] 05:21:00 Test Item Value Reference Range Interpretation Comments UA Bili (test code = Negative *NA*(12/08/19 UA Bili) 12:21 AM) [facility] AND [id number] 05:21:00 Test Item Value Reference Range Interpretation Comments UA Blood (test code = Negative (12/08/19 12:21 UA Blood) AM) [facility] AND [id number] 05:21:00 Test Item Value Reference Range Interpretation Comments UA Nitrite (test code Negative (12/08/19 12:21 = UA Nitrite) AM) [facility] AND [id number] 05:21:00 Test Item Value Reference Range Interpretation Comments UA Leuk Est (test Negative (12/08/19 12:21 code = UA Leuk Est) AM) [facility] AND [id number] 05:21:00 Test Item Value Reference Range Interpretation Comments UA Sq Epi (test code = UA Sq Occasional /LPF Epi) [facility] AND [id number] 05:21:00 Test Item Value Reference Range Interpretation Comments UA WBC (test code = 4 See_Comment [Automa bright message] The UA WBC) system which ge nerated this result transmit bright reference range : <=5. The reference range was not used to interpr et this result as candice l/abnormal. [facility] AND [id number] 05:21:00 Test Item Value Reference Range Interpretation Comments UA RBC (test code = 1 See_Comment [Automa bright message] The UA RBC) system which ge nerated this result transmit bright reference range : <=2. The reference range was not used to interpr et this result as candice l/abnormal. [facility] AND [id number] 05:21:00 Test Item Value Reference Range Interpretation Comments UA Urobilinogen (test code = UA <=1.0 mg/dL 0.1-1.0 Urobilinogen) [facility] AND [id number] 05:21:00 Test Item Value Reference Range Interpretation Comments UA Color (test code = Yellow *NA*(12/08/19 UA Color) 12:21 AM) [facility] AND [id number] 05:21:00 Test Item Value Reference Range Interpretation Comments UA Turbidity (test code Slight *ABN*(12/08/19 = UA Turbidity) 12:21 AM) [facility] AND [id number] 05:21:00 Test Item Value Reference Range Interpretation Comments UA Spec Grav (test code = UA Spec 1.025 1 Grav) [facility] AND [id number] 05:21:00 Test Item Value Reference Range Interpretation Comments UA pH (test code = UA pH) 6.0 1 5.0-8.0 [facility] AND [id number] 05:21:00 Test Item Value Reference Range Interpretation Comments UA Protein (test code = UA Protein) 30 mg/dL [facility] AND [id number] 05:21:00 Test Item Value Reference Range Interpretation Comments UA Glucose (test code = UA Glucose) 500 mg/dL [facility] AND [id number] 05:21:00 Test Item Value Reference Range Interpretation Comments UA Ketones (test code = UA Ketones) 20 mg/dL [facility] AND [id number] 05:21:00 Test Item Value Reference Range Interpretation Comments UA Bili (test code = Negative *NA*(12/08/19 UA Bili) 12:21 AM) [facility] [id number] 05:21:00 Test Item Value Reference Range Interpretation Comments UA Blood (test code = Negative (12/08/19 12:21 UA Blood) AM) [facility] [id number] 05:21:00 Test Item Value Reference Range Interpretation Comments UA Nitrite (test code Negative (12/08/19 12:21 = UA Nitrite) AM) [facility] [id number] 05:21:00 Test Item Value Reference Range Interpretation Comments UA Leuk Est (test Negative (12/08/19 12:21 code = UA Leuk Est) AM) [facility] [id number] 05:21:00 Test Item Value Reference Range Interpretation Comments UA Sq Epi (test code = UA Sq Occasional /LPF Epi) [facility] [id number] 05:21:00 Test Item Value Reference Range Interpretation Comments UA WBC (test code = 4 See_Comment [Automa bright message] The UA WBC) system which ge nerated this result transmit bright reference range : <=5. The reference range was not used to interpr et this result as candice l/abnormal. [facility] [id number] 05:21:00 Test Item Value Reference Range Interpretation Comments UA RBC (test code = 1 See_Comment [Automa bright message] The UA RBC) system which ge nerated this result transmit bright reference range : <=2. The reference range was not used to interpr et this result as candice l/abnormal. [facility] [id number] 05:21:00 Test Item Value Reference Range Interpretation Comments UA Urobilinogen (test code = UA <=1.0 mg/dL 0.1-1.0 Urobilinogen) [facility] [id number] 05:21:00 Test Item Value Reference Range Interpretation Comments UA Color (test code = Yellow *NA*(12/08/19 UA Color) 12:21 AM) [facility] [id number] 05:21:00 Test Item Value Reference Range Interpretation Comments UA Turbidity (test code Slight *ABN*(12/08/19 = UA Turbidity) 12:21 AM) [facility] [id number] 05:21:00 Test Item Value Reference Range Interpretation Comments UA Spec Grav (test code = UA Spec 1.025 1 Grav) [facility] AND [id number] 05:21:00 Test Item Value Reference Range Interpretation Comments UA pH (test code = UA pH) 6.0 1 5.0-8.0 [facility] AND [id number] 05:21:00 Test Item Value Reference Range Interpretation Comments UA Protein (test code = UA Protein) 30 mg/dL [facility] AND [id number] 05:21:00 Test Item Value Reference Range Interpretation Comments UA Glucose (test code = UA Glucose) 500 mg/dL [facility] AND [id number] 05:21:00 Test Item Value Reference Range Interpretation Comments UA Ketones (test code = UA Ketones) 20 mg/dL [facility] AND [id number] 05:21:00 Test Item Value Reference Range Interpretation Comments UA Bili (test code = Negative *NA*(12/08/19 UA Bili) 12:21 AM) [facility] AND [id number] 05:21:00 Test Item Value Reference Range Interpretation Comments UA Blood (test code = Negative (12/08/19 12:21 UA Blood) AM) [facility] AND [id number] 05:21:00 Test Item Value Reference Range Interpretation Comments UA Nitrite (test code Negative (12/08/19 12:21 = UA Nitrite) AM) [facility] AND [id number] 05:21:00 Test Item Value Reference Range Interpretation Comments UA Leuk Est (test Negative (12/08/19 12:21 code = UA Leuk Est) AM) [facility] AND [id number] 05:21:00 Test Item Value Reference Range Interpretation Comments UA Sq Epi (test code = UA Sq Occasional /LPF Epi) [facility] AND [id number] 05:21:00 Test Item Value Reference Range Interpretation Comments UA WBC (test code = 4 See_Comment [Automa bright message] The UA WBC) system which ge nerated this result transmit bright reference range : <=5. The reference range was not used to interpr et this result as candice l/abnormal. [facility] AND [id number] 05:21:00 Test Item Value Reference Range Interpretation Comments UA RBC (test code = 1 See_Comment [Automa bright message] The UA RBC) system which ge nerated this result transmit bright reference range : <=2. The reference range was not used to interpr et this result as candice l/abnormal. [facility] AND [id number] 05:21:00 Test Item Value Reference Range Interpretation Comments UA Urobilinogen (test code = UA <=1.0 mg/dL 0.1-1.0 Urobilinogen) [facility] AND [id number] 05:21:00 Test Item Value Reference Range Interpretation Comments UA Color (test code = Yellow *NA*(12/08/19 UA Color) 12:21 AM) [facility] AND [id number] 05:21:00 Test Item Value Reference Range Interpretation Comments UA Turbidity (test code Slight *ABN*(12/08/19 = UA Turbidity) 12:21 AM) [facility] AND [id number] 05:21:00 Test Item Value Reference Range Interpretation Comments UA Spec Grav (test code = UA Spec 1.025 1 Grav) [facility] AND [id number] 05:21:00 Test Item Value Reference Range Interpretation Comments UA pH (test code = UA pH) 6.0 1 5.0-8.0 [facility] AND [id number] 05:21:00 Test Item Value Reference Range Interpretation Comments UA Protein (test code = UA Protein) 30 mg/dL [facility] AND [id number] 05:21:00 Test Item Value Reference Range Interpretation Comments UA Glucose (test code = UA Glucose) 500 mg/dL [facility] AND [id number] 05:21:00 Test Item Value Reference Range Interpretation Comments UA Ketones (test code = UA Ketones) 20 mg/dL [facility] AND [id number] 05:21:00 Test Item Value Reference Range Interpretation Comments UA Bili (test code = Negative *NA*(12/08/19 UA Bili) 12:21 AM) [facility] AND [id number] 05:21:00 Test Item Value Reference Range Interpretation Comments UA Blood (test code = Negative (12/08/19 12:21 [facility]A Blood) AM) [facility] [id number] 05:21:00 Test Item Value Reference Range Interpretation Comments UA Nitrite (test code Negative (12/08/19 12:21 = UA Nitrite) AM) [facility] [id number] 05:21:00 Test Item Value Reference Range Interpretation Comments UA Leuk Est (test Negative (12/08/19 12:21 code = UA Leuk Est) AM) [facility] [id number] 05:21:00 Test Item Value Reference Range Interpretation Comments UA Sq Epi (test code = UA Sq Occasional /LPF Epi) [facility] [id number] 05:21:00 Test Item Value Reference Range Interpretation Comments UA WBC (test code = 4 See_Comment [Automa bright message] The UA WBC) system which ge nerated this result transmit bright reference range : <=5. The reference range was not used to interpr et this result as candice l/abnormal. [facility] [id number] 05:21:00 Test Item Value Reference Range Interpretation Comments UA RBC (test code = 1 See_Comment [Automa bright message] The UA RBC) system which ge nerated this result transmit bright reference range : <=2. The reference range was not used to interpr et this result as candice l/abnormal. [facility] AND [id number] 05:21:00 Test Item Value Reference Range Interpretation Comments UA Urobilinogen (test code = UA <=1.0 mg/dL 0.1-1.0 Urobilinogen) [facility] AND [id number] 05:21:00 Test Item Value Reference Range Interpretation Comments UA Color (test code = Yellow *NA*(12/08/19 UA Color) 12:21 AM) [facility] AND [id number] 05:21:00 Test Item Value Reference Range Interpretation Comments UA Turbidity (test code Slight *ABN*(12/08/19 = UA Turbidity) 12:21 AM) [facility] AND [id number] 05:21:00 Test Item Value Reference Range Interpretation Comments UA Spec Grav (test code = UA Spec 1.025 1 Grav) [facility] AND [id number] 05:21:00 Test Item Value Reference Range Interpretation Comments UA pH (test code = UA pH) 6.0 1 5.0-8.0 [facility] AND [id number] 05:21:00 Test Item Value Reference Range Interpretation Comments UA Protein (test code = UA Protein) 30 mg/dL [facility] AND [id number] 05:21:00 Test Item Value Reference Range Interpretation Comments UA Glucose (test code = UA Glucose) 500 mg/dL [facility] AND [id number] 05:21:00 Test Item Value Reference Range Interpretation Comments UA Ketones (test code = UA Ketones) 20 mg/dL [facility] AND [id number] 05:21:00 Test Item Value Reference Range Interpretation Comments UA Bili (test code = Negative *NA*(12/08/19 UA Bili) 12:21 AM) [facility] AND [id number] 05:21:00 Test Item Value Reference Range Interpretation Comments UA Blood (test code = Negative (12/08/19 12:21 UA Blood) AM) [facility] AND [id number] 05:21:00 Test Item Value Reference Range Interpretation Comments UA Nitrite (test code Negative (12/08/19 12:21 = UA Nitrite) AM) [facility] AND [id number] 05:21:00 Test Item Value Reference Range Interpretation Comments UA Leuk Est (test Negative (12/08/19 12:21 code = UA Leuk Est) AM) [facility] AND [id number] 05:21:00 Test Item Value Reference Range Interpretation Comments UA Sq Epi (test code = UA Sq Occasional /LPF Epi) [facility] AND [id number] 05:21:00 Test Item Value Reference Range Interpretation Comments UA WBC (test code = 4 See_Comment [Automa bright message] The UA WBC) system which ge nerated this result transmit bright reference range : <=5. The reference range was not used to interpr et this result as candice l/abnormal. [facility] AND [id number] 05:21:00 Test Item Value Reference Range Interpretation Comments UA RBC (test code = 1 See_Comment [Automa bright message] The UA RBC) system which ge nerated this result transmit bright reference range : <=2. The reference range was not used to interpr et this result as candice l/abnormal. [facility] AND [id number] 05:21:00 Test Item Value Reference Range Interpretation Comments UA Urobilinogen (test code = UA <=1.0 mg/dL 0.1-1.0 Urobilinogen) [facility] AND [id number] 05:21:00 Test Item Value Reference Range Interpretation Comments UA Color (test code = Yellow *NA*(12/08/19 UA Color) 12:21 AM) [facility] AND [id number] 05:21:00 Test Item Value Reference Range Interpretation Comments UA Turbidity (test code Slight *ABN*(12/08/19 = UA Turbidity) 12:21 AM) [facility] AND [id number] 05:21:00 Test Item Value Reference Range Interpretation Comments UA Spec Grav (test code = UA Spec 1.025 1 Grav) [facility] AND [id number] 05:21:00 Test Item Value Reference Range Interpretation Comments UA pH (test code = UA pH) 6.0 1 5.0-8.0 [facility] AND [id number] 05:21:00 Test Item Value Reference Range Interpretation Comments UA Protein (test code = UA Protein) 30 mg/dL [facility] AND [id number] 05:21:00 Test Item Value Reference Range Interpretation Comments UA Glucose (test code = UA Glucose) 500 mg/dL [facility] AND [id number] 05:21:00 Test Item Value Reference Range Interpretation Comments UA Ketones (test code = UA Ketones) 20 mg/dL [facility] AND [id number] 05:21:00 Test Item Value Reference Range Interpretation Comments UA Bili (test code = Negative *NA*(12/08/19 UA Bili) 12:21 AM) [facility] AND [id number] 05:21:00 Test Item Value Reference Range Interpretation Comments UA Blood (test code = Negative (12/08/19 12:21 UA Blood) AM) [facility] AND [id number] 05:21:00 Test Item Value Reference Range Interpretation Comments UA Nitrite (test code Negative (12/08/19 12:21 = UA Nitrite) AM) [facility] AND [id number] 05:21:00 Test Item Value Reference Range Interpretation Comments UA Leuk Est (test Negative (12/08/19 12:21 code = UA Leuk Est) AM) [facility] AND [id number] 05:21:00 Test Item Value Reference Range Interpretation Comments UA Sq Epi (test code = UA Sq Occasional /LPF Epi) [facility] AND [id number] 05:21:00 Test Item Value Reference Range Interpretation Comments UA WBC (test code = 4 See_Comment [Automa bright message] The UA WBC) system which ge nerated this result transmit bright reference range : <=5. The reference range was not used to interpr et this result as candice l/abnormal. [facility] AND [id number] 05:21:00 Test Item Value Reference Range Interpretation Comments UA RBC (test code = 1 See_Comment [Automa bright message] The UA RBC) system which ge nerated this result transmit bright reference range : <=2. The reference range was not used to interpr et this result as candice l/abnormal. [facility] AND [id number] 05:21:00 Test Item Value Reference Range Interpretation Comments UA Urobilinogen (test code = UA <=1.0 mg/dL 0.1-1.0 Urobilinogen) [facility] AND [id number] 05:21:00 Test Item Value Reference Range Interpretation Comments UA Color (test code = Yellow *NA*(12/08/19 UA Color) 12:21 AM) [facility] AND [id number] 05:21:00 Test Item Value Reference Range Interpretation Comments UA Turbidity (test code Slight *ABN*(12/08/19 = UA Turbidity) 12:21 AM) [facility] AND [id number] 05:21:00 Test Item Value Reference Range Interpretation Comments UA Spec Grav (test code = UA Spec 1.025 1 Grav) [facility] AND [id number] 05:21:00 Test Item Value Reference Range Interpretation Comments UA pH (test code = UA pH) 6.0 1 5.0-8.0 [facility] AND [id number] 05:21:00 Test Item Value Reference Range Interpretation Comments UA Protein (test code = UA Protein) 30 mg/dL [facility] AND [id number] 05:21:00 Test Item Value Reference Range Interpretation Comments UA Glucose (test code = UA Glucose) 500 mg/dL [facility] AND [id number] 05:21:00 Test Item Value Reference Range Interpretation Comments UA Ketones (test code = UA Ketones) 20 mg/dL [facility] AND [id number] 05:21:00 Test Item Value Reference Range Interpretation Comments UA Bili (test code = Negative *NA*(12/08/19 UA Bili) 12:21 AM) [facility] AND [id number] 05:21:00 Test Item Value Reference Range Interpretation Comments UA Blood (test code = Negative (12/08/19 12:21 UA Blood) AM) [facility] AND [id number] 05:21:00 Test Item Value Reference Range Interpretation Comments UA Nitrite (test code Negative (12/08/19 12:21 = UA Nitrite) AM) [facility] AND [id number] 05:21:00 Test Item Value Reference Range Interpretation Comments UA Leuk Est (test Negative (12/08/19 12:21 code = UA Leuk Est) AM) [facility] AND [id number] 05:21:00 Test Item Value Reference Range Interpretation Comments UA Sq Epi (test code = UA Sq Occasional /LPF Epi) [facility] AND [id number] 05:21:00 Test Item Value Reference Range Interpretation Comments UA WBC (test code = 4 See_Comment [Automa bright message] The UA WBC) system which ge nerated this result transmit bright reference range : <=5. The reference range was not used to interpr et this result as candice l/abnormal. [facility] AND [id number] 05:21:00 Test Item Value Reference Range Interpretation Comments UA RBC (test code = 1 See_Comment [Automa bright message] The UA RBC) system which ge nerated this result transmit bright reference range : <=2. The reference range was not used to interpr et this result as candice l/abnormal. [facility] AND [id number] 05:21:00 Test Item Value Reference Range Interpretation Comments UA Urobilinogen (test code = UA <=1.0 mg/dL 0.1-1.0 Urobilinogen) [facility] AND [id number] 05:21:00 Test Item Value Reference Range Interpretation Comments UA Color (test code = Yellow *NA*(12/08/19 UA Color) 12:21 AM) [facility] AND [id number] 05:21:00 Test Item Value Reference Range Interpretation Comments UA Turbidity (test code Slight *ABN*(12/08/19 = UA Turbidity) 12:21 AM) [facility] AND [id number] 05:21:00 Test Item Value Reference Range Interpretation Comments UA Spec Grav (test code = UA Spec 1.025 1 Grav) [facility] AND [id number] 05:21:00 Test Item Value Reference Range Interpretation Comments UA pH (test code = UA pH) 6.0 1 5.0-8.0 [facility] AND [id number] 05:21:00 Test Item Value Reference Range Interpretation Comments UA Protein (test code = UA Protein) 30 mg/dL [facility] AND [id number] 05:21:00 Test Item Value Reference Range Interpretation Comments UA Glucose (test code = UA Glucose) 500 mg/dL [facility] AND [id number] 05:21:00 Test Item Value Reference Range Interpretation Comments UA Ketones (test code = UA Ketones) 20 mg/dL [facility] AND [id number] 05:21:00 Test Item Value Reference Range Interpretation Comments UA Bili (test code = Negative *NA*(12/08/19 UA Bili) 12:21 AM) [facility] AND [id number] 05:21:00 Test Item Value Reference Range Interpretation Comments UA Blood (test code = Negative (12/08/19 12:21 UA Blood) AM) [facility] AND [id number] 05:21:00 Test Item Value Reference Range Interpretation Comments UA Nitrite (test code Negative (12/08/19 12:21 = UA Nitrite) AM) [facility] AND [id number] 05:21:00 Test Item Value Reference Range Interpretation Comments UA Leuk Est (test Negative (12/08/19 12:21 code = UA Leuk Est) AM) [facility] [id number] 05:21:00 Test Item Value Reference Range Interpretation Comments UA Sq Epi (test code = UA Sq Occasional /LPF Epi) [facility] [id number] 05:21:00 Test Item Value Reference Range Interpretation Comments UA WBC (test code = 4 See_Comment [Automa bright message] The UA WBC) system which ge nerated this result transmit bright reference range : <=5. The reference range was not used to interpr et this result as candice l/abnormal. [facility] AND [id number] 05:21:00 Test Item Value Reference Range Interpretation Comments UA RBC (test code = 1 See_Comment [Automa bright message] The UA RBC) system which ge nerated this result transmit bright reference range : <=2. The reference range was not used to interpr et this result as candice l/abnormal. [facility] [id number] 05:21:00 Test Item Value Reference Range Interpretation Comments UA Urobilinogen (test code = UA <=1.0 mg/dL 0.1-1.0 Urobilinogen) [facility] AND [id number] 05:21:00 Test Item Value Reference Range Interpretation Comments UA Color (test code = Yellow *NA*(12/08/19 UA Color) 12:21 AM) [facility] [id number] 05:21:00 Test Item Value Reference Range Interpretation Comments UA Turbidity (test code Slight *ABN*(12/08/19 = UA Turbidity) 12:21 AM) [facility] [id number] 05:21:00 Test Item Value Reference Range Interpretation Comments UA Spec Grav (test code = UA Spec 1.025 1 Grav) [facility] [id number] 05:21:00 Test Item Value Reference Range Interpretation Comments UA pH (test code = UA pH) 6.0 1 5.0-8.0 [facility] [id number] 05:21:00 Test Item Value Reference Range Interpretation Comments UA Protein (test code = UA Protein) 30 mg/dL [facility] AND [id number] 05:21:00 Test Item Value Reference Range Interpretation Comments UA Glucose (test code = UA Glucose) 500 mg/dL [facility] AND [id number] 05:21:00 Test Item Value Reference Range Interpretation Comments UA Ketones (test code = UA Ketones) 20 mg/dL [facility] AND [id number] 05:21:00 Test Item Value Reference Range Interpretation Comments UA Bili (test code = Negative *NA*(12/08/19 UA Bili) 12:21 AM) [facility] AND [id number] 05:21:00 Test Item Value Reference Range Interpretation Comments UA Blood (test code = Negative (12/08/19 12:21 UA Blood) AM) [facility] AND [id number] 05:21:00 Test Item Value Reference Range Interpretation Comments UA Nitrite (test code Negative (12/08/19 12:21 = UA Nitrite) AM) [facility] AND [id number] 05:21:00 Test Item Value Reference Range Interpretation Comments UA Leuk Est (test Negative (12/08/19 12:21 code = UA Leuk Est) AM) [facility] AND [id number] 05:21:00 Test Item Value Reference Range Interpretation Comments UA Sq Epi (test code = UA Sq Occasional /LPF Epi) [facility] AND [id number] 05:21:00 Test Item Value Reference Range Interpretation Comments UA WBC (test code = 4 See_Comment [Automa bright message] The UA WBC) system which ge nerated this result transmit bright reference range : <=5. The reference range was not used to interpr et this result as candice l/abnormal. [facility] AND [id number] 05:21:00 Test Item Value Reference Range Interpretation Comments UA RBC (test code = 1 See_Comment [Automa bright message] The UA RBC) system which ge nerated this result transmit birght reference range : <=2. The reference range was not used to interpr et this result as candice l/abnormal. [facility] AND [id number] 05:21:00 Test Item Value Reference Range Interpretation Comments UA Urobilinogen (test code = UA <=1.0 mg/dL 0.1-1.0 Urobilinogen) [facility] AND [id number] 05:21:00 Test Item Value Reference Range Interpretation Comments UA Color (test code = Yellow *NA*(12/08/19 UA Color) 12:21 AM) [facility] AND [id number] 05:21:00 Test Item Value Reference Range Interpretation Comments UA Turbidity (test code Slight *ABN*(12/08/19 = UA Turbidity) 12:21 AM) [facility] AND [id number] 05:21:00 Test Item Value Reference Range Interpretation Comments UA Spec Grav (test code = UA Spec 1.025 1 Grav) [facility] AND [id number] 05:21:00 Test Item Value Reference Range Interpretation Comments UA pH (test code = UA pH) 6.0 1 5.0-8.0 [facility] AND [id number] 05:21:00 Test Item Value Reference Range Interpretation Comments UA Protein (test code = UA Protein) 30 mg/dL [facility] AND [id number] 05:21:00 Test Item Value Reference Range Interpretation Comments UA Glucose (test code = UA Glucose) 500 mg/dL [facility] AND [id number] 05:21:00 Test Item Value Reference Range Interpretation Comments UA Ketones (test code = UA Ketones) 20 mg/dL [facility] AND [id number] 05:21:00 Test Item Value Reference Range Interpretation Comments UA Bili (test code = Negative *NA*(12/08/19 UA Bili) 12:21 AM) [facility] AND [id number] 05:21:00 Test Item Value Reference Range Interpretation Comments UA Blood (test code = Negative (12/08/19 12:21 UA Blood) AM) [facility] AND [id number] 05:21:00 Test Item Value Reference Range Interpretation Comments UA Nitrite (test code Negative (12/08/19 12:21 = UA Nitrite) AM) [facility] AND [id number] 05:21:00 Test Item Value Reference Range Interpretation Comments UA Leuk Est (test Negative (12/08/19 12:21 code = UA Leuk Est) AM) [facility] AND [id number] 05:21:00 Test Item Value Reference Range Interpretation Comments UA Sq Epi (test code = UA Sq Occasional /LPF Epi) [facility] [id number] 05:21:00 Test Item Value Reference Range Interpretation Comments UA WBC (test code = 4 See_Comment [Automa bright message] The UA WBC) system which ge nerated this result transmit bright reference range : <=5. The reference range was not used to interpr et this result as candice l/abnormal. [facility] [id number] 05:21:00 Test Item Value Reference Range Interpretation Comments UA RBC (test code = 1 See_Comment [Automa bright message] The UA RBC) system which ge nerated this result transmit bright reference range : <=2. The reference range was not used to interpr et this result as candice l/abnormal. [facility] [id number] 05:21:00 Test Item Value Reference Range Interpretation Comments UA Urobilinogen (test code = UA <=1.0 mg/dL 0.1-1.0 Urobilinogen) [facility] AND [id number] 05:21:00 Test Item Value Reference Range Interpretation Comments UA Color (test code = Yellow *NA*(12/08/19 UA Color) 12:21 AM) [facility] AND [id number] 05:21:00 Test Item Value Reference Range Interpretation Comments UA Turbidity (test code Slight *ABN*(12/08/19 = UA Turbidity) 12:21 AM) [facility] AND [id number] 05:21:00 Test Item Value Reference Range Interpretation Comments UA Spec Grav (test code = UA Spec 1.025 1 Grav) [facility] AND [id number] 05:21:00 Test Item Value Reference Range Interpretation Comments UA pH (test code = UA pH) 6.0 1 5.0-8.0 [facility] AND [id number] 05:21:00 Test Item Value Reference Range Interpretation Comments UA Protein (test code = UA Protein) 30 mg/dL [facility] AND [id number] 05:21:00 Test Item Value Reference Range Interpretation Comments UA Glucose (test code = UA Glucose) 500 mg/dL [facility] [facility] [id number] 05:21:00 Test Item Value Reference Range Interpretation Comments UA Ketones (test code = UA Ketones) 20 mg/dL [facility] [id number] 05:21:00 Test Item Value Reference Range Interpretation Comments UA Bili (test code = Negative *NA*(12/08/19 UA Bili) 12:21 AM) [facility] [id number] 05:21:00 Test Item Value Reference Range Interpretation Comments UA Blood (test code = Negative (12/08/19 12:21 UA Blood) AM) [facility] [id number] 05:21:00 Test Item Value Reference Range Interpretation Comments UA Nitrite (test code Negative (12/08/19 12:21 = UA Nitrite) AM) [facility] [id number] 05:21:00 Test Item Value Reference Range Interpretation Comments UA Leuk Est (test Negative (12/08/19 12:21 code = UA Leuk Est) AM) [facility] [id number] 05:21:00 Test Item Value Reference Range Interpretation Comments UA Sq Epi (test code = UA Sq Occasional /LPF Epi) [facility] [id number] 05:21:00 Test Item Value Reference Range Interpretation Comments UA WBC (test code = UA WBC) 4 <=5 [facility] [id number] 05:21:00 Test Item Value Reference Range Interpretation Comments UA RBC (test code = UA RBC) 1 <=2 [facility] [id number] 05:21:00 Test Item Value Reference Range Interpretation Comments UA Urobilinogen (test code = UA <=1.0 mg/dL 0.1-1.0 Urobilinogen) [facility] [id number] 12:36:00 Test Item Value Reference Range Interpretation Comments MRSA by PCR (test Negative (12/06/19 7:36 code = MRSA by PCR) AM) [facility] - [id number] 12:36:00 Test Item Value Reference Range Interpretation Comments MRSA by PCR (test Negative (12/06/19 7:36 code = MRSA by PCR) AM) [facility] - [id number] 12:36:00 Test Item Value Reference Range Interpretation Comments MRSA by PCR (test Negative (12/06/19 7:36 code = MRSA by PCR) AM) [facility] [id number] 12:36:00 Test Item Value Reference Range Interpretation Comments MRSA by PCR (test Negative (12/06/19 7:36 code = MRSA by PCR) AM) [facility] [id number] 12:36:00 Test Item Value Reference Range Interpretation Comments MRSA by PCR (test Negative (12/06/19 7:36 code = MRSA by PCR) AM) [facility] - [id number] 12:36:00 Test Item Value Reference Range Interpretation Comments MRSA by PCR (test Negative (12/06/19 7:36 code = MRSA by PCR) AM) [facility] - [id number] 12:36:00 Test Item Value Reference Range Interpretation Comments MRSA by PCR (test Negative (12/06/19 7:36 code = MRSA by PCR) AM) [facility] - [id number] 12:36:00 Test Item Value Reference Range Interpretation Comments MRSA by PCR (test Negative (12/06/19 7:36 code = MRSA by PCR) AM) [facility] [id number] 12:36:00 Test Item Value Reference Range Interpretation Comments MRSA by PCR (test Negative (12/06/19 7:36 code = MRSA by PCR) AM) [facility] - [id number] 12:36:00 Test Item Value Reference Range Interpretation Comments MRSA by PCR (test Negative (12/06/19 7:36 code = MRSA by PCR) AM) [facility] - [id number] 12:36:00 Test Item Value Reference Range Interpretation Comments MRSA by PCR (test Negative (12/06/19 7:36 code = MRSA by PCR) AM) [facility] - [id number] 12:36:00 Test Item Value Reference Range Interpretation Comments MRSA by PCR (test Negative (12/06/19 7:36 code = MRSA by PCR) AM) [facility] [id number] 08:55:00 Test Item Value Reference Range Interpretation Comments Lactic Acid Lvl (test code = Lactic 1.5 0.5-2.2 Acid Lvl) [place] [id number] 08:55:00 Test Item Value Reference Range Interpretation Comments Lactic Acid Lvl (test code = Lactic 1.5 0.5-2.2 Acid Lvl) [place] [address]-06-10 08:55:00 Test Item Value Reference Range Interpretation Comments Lactic Acid Lvl (test code = Lactic 1.5 0.5-2.2 Acid Lvl) [place] [address]-06-10 08:55:00 Test Item Value Reference Range Interpretation Comments Lactic Acid Lvl (test code = Lactic 1.5 0.5-2.2 Acid Lvl) [place] 763680-06-10 08:55:00 Test Item Value Reference Range Interpretation Comments Lactic Acid Lvl (test code = Lactic 1.5 0.5-2.2 Acid Lvl) [place] 763680-06-10 08:55:00 Test Item Value Reference Range Interpretation Comments Lactic Acid Lvl (test code = Lactic 1.5 0.5-2.2 Acid Lvl) [place] 763680-06-10 08:55:00 Test Item Value Reference Range Interpretation Comments Lactic Acid Lvl (test code = Lactic 1.5 0.5-2.2 Acid Lvl) [place] 763680-06-10 08:55:00 Test Item Value Reference Range Interpretation Comments Lactic Acid Lvl (test code = Lactic 1.5 0.5-2.2 Acid Lvl) [place] 763680-06-10 08:55:00 Test Item Value Reference Range Interpretation Comments Lactic Acid Lvl (test code = Lactic 1.5 0.5-2.2 Acid Lvl) [place] 763680-06-10 08:55:00 Test Item Value Reference Range Interpretation Comments Lactic Acid Lvl (test code = Lactic 1.5 0.5-2.2 Acid Lvl) [place] 763680-06-10 08:55:00 Test Item Value Reference Range Interpretation Comments Lactic Acid Lvl (test code = Lactic 1.5 0.5-2.2 Acid Lvl) [address]06-10 08:55:00 Test Item Value Reference Range Interpretation Comments Lactic Acid Lvl (test code = Lactic 1.5 0.5-2.2 Acid Lvl) [facility] [id number] 04:08:00 Test Item Value Reference Range Interpretation Comments B/C Ratio (test code = B/C Ratio) 14 1 6-25 [facility] [id number] 04:08:00 Test Item Value Reference Range Interpretation Comments Total Protein (test code = Total 7.1 6.4-8.4 Protein) [facility] [id number] 04:08:00 Test Item Value Reference Range Interpretation Comments Albumin Lvl (test code = Albumin Lvl) 2.2 3.5-5.0 [facility] [id number] 04:08:00 Test Item Value Reference Range Interpretation Comments Globulin (test code = Globulin) 4.9 2.7-4.2 [facility] [id number] 04:08:00 Test Item Value Reference Range Interpretation Comments A/G Ratio (test code = A/G Ratio) 0.4 1 0.7-1.6 [facility] [id number] 04:08:00 Test Item Value Reference Range Interpretation Comments ALT (test code = ALT) 19 See_Comment [Auto mated message] The system which ge nerated this result transmit bright reference range : <=65. The reference range was not used to interpr et this result as candice l/abnormal. [facility] [employer] [id number] 04:08:00 Test Item Value Reference Range Interpretation Comments AST (test code = AST) 17 See_Comment [Auto mated message] The system which ge nerated this result transmit bright reference range : <=37. The reference range was not used to interpr et this result as candice l/abnormal. [facility] [employer] [id number] 04:08:00 Test Item Value Reference Range Interpretation Comments Alk Phos (test code = Alk Phos) 167 39-136 [facility] [employer] [id number] 04:08:00 Test Item Value Reference Range Interpretation Comments Bili Total (test code = Bili Total) 0.7 0.2-1.3 [facility] [employer] [id number] 04:08:00 Test Item Value Reference Range Interpretation Comments Lactic Acid Lvl (test code = Lactic 2.5 0.5-2.2 Acid Lvl) [facility] [id number] 04:08:00 Test Item Value Reference Range Interpretation Comments Procalcitonin Lvl (test 1.27 See_Comment [Au tomated message] code = Procalcitonin Lvl) Th e system which generated this result transmitted ref erence range: <=0.10. The reference range was not used to interpr et this result as normal/abnormal . [facility] CenterIrmzthbDDFZWEYOBL2709-09-61 04:08:00 Test Item Value Reference Range Interpretation Comments PT (test code = PT) 13.1 s 12.0-14.7 [facility] CenterOcsouvgTQRIWJYVVX7769-29-24 04:08:00 Test Item Value Reference Range Interpretation Comments INR (test code = INR) 0.99 1 0.85-1.17 [facility] C[id number] 04:08:00 Test Item Value Reference Range Interpretation Comments PTT (test code = PTT) 28.2 s 22.9-35.[address] [facility] [address] CenterGffqbqlKWPZIKHWSE4424-99-25 04:08:00 Test Item Value Reference Range Interpretation Comments RBC Morph (test code = Normal (12/05/19 11:08 RBC Morph) PM) [facility] [id number] 04:08:00 Test Item Value Reference Range Interpretation Comments Plt Morph (test code = Normal (12/05/19 11:08 Plt Morph) PM) [facility] [id number] 04:08:00 Test Item Value Reference Range Interpretation Comments S. aureus (test code = Not Detected (12/05/19 S. aureus) 11:08 PM) [facility] [id number] 04:08:00 Test Item Value Reference Range Interpretation Comments S. epidermidis (test Not Detected (12/05/19 code = S. epidermidis) 11:08 PM) [facility] [id number] 04:08:00 Test Item Value Reference Range Interpretation Comments S. lugdunensis (test Not Detected (12/05/19 code = S. lugdunensis) 11:08 PM) [facility]2020-06-10 04:08:00 Test Item Value Reference Range Interpretation Comments S. anginosus grp (test Not Detected (12/05/19 code = S. anginosus 11:08 PM) grp) [facility] [id number] 04:08:00 Test Item Value Reference Range Interpretation Comments S. agalactiae (test code Not Detected (12/05/19 = S. agalactiae) 11:08 PM) [facility] [id number] 04:08:00 Test Item Value Reference Range Interpretation Comments S. pneumoniae (test code Not Detected (12/05/19 = S. pneumoniae) 11:08 PM) [facility] [id number] 04:08:00 Test Item Value Reference Range Interpretation Comments S. pyogenes (test code Not Detected (12/05/19 = S. pyogenes) 11:08 PM) [facility]2020-06-10 04:08:00 Test Item Value Reference Range Interpretation Comments E. faecalis (test code Not Detected (12/05/19 = E. faecalis) 11:08 PM) [facility]2020-06-10 04:08:00 Test Item Value Reference Range Interpretation Comments E. faecium (test code Not Detected (12/05/19 = E. faecium) 11:08 PM) [facility] [id number] 04:08:00 Test Item Value Reference Range Interpretation Comments Staphylococcus spp. (test Not Detected code = Staphylococcus (12/05/19 11:08 PM) spp.) [facility] [id number] 04:08:00 Test Item Value Reference Range Interpretation Comments Streptococcus spp. (test Not Detected (12/05/19 code = Streptococcus 11:08 PM) spp.) [facility] [id number] 04:08:00 Test Item Value Reference Range Interpretation Comments Listeria spp. (test Not Detected (12/05/19 code = Listeria spp.) 11:08 PM) [facility] [id number] 04:08:00 Test Item Value Reference Range Interpretation Comments mecA Methicillin Not Detected (12/05/19 Resistance (test code = 11:08 PM) mecA Methicillin Resistance) [facility] [id number] 04:08:00 Test Item Value Reference Range Interpretation Comments Andres Vancomycin Not Detected (12/05/19 Resistance (test code = 11:08 PM) Andres Vancomycin Resistance) [facility] [id number] 04:08:00 Test Item Value Reference Range Interpretation Comments vanB Vancomycin Not Detected (12/05/19 Resistance (test code = 11:08 PM) vanB Vancomycin Resistance) [facility] Center[facility] [id number] 04:08:00 Test Item Value Reference Range Interpretation Comments B/C Ratio (test code = B/C Ratio) 14 1 6-[address] [facility] Center[facility] [id number] 04:08:00 Test Item Value Reference Range Interpretation Comments Total Protein (test code = Total 7.1 6.4-8.4 Protein) [facility]2020-06-10 04:08:00 Test Item Value Reference Range Interpretation Comments Albumin Lvl (test code = Albumin Lvl) 2.2 3.5-5.0 [facility]2020-06-10 04:08:00 Test Item Value Reference Range Interpretation Comments Globulin (test code = Globulin) 4.9 2.7-4.2 [facility] [id number] 04:08:00 Test Item Value Reference Range Interpretation Comments A/G Ratio (test code = A/G Ratio) 0.4 1 0.7-1.6 [facility]2020-06-10 04:08:00 Test Item Value Reference Range Interpretation Comments ALT (test code = ALT) 19 See_Comment [Auto mated message] The system which ge nerated this result transmit bright reference range : <=65. The reference range was not used to interpr et this result as candice l/abnormal. [facility] [id number] 04:08:00 Test Item Value Reference Range Interpretation Comments AST (test code = AST) 17 See_Comment [Auto mated message] The system which ge nerated this result transmit bright reference range : <=37. The reference range was not used to interpr et this result as candice l/abnormal. [facility] [id number] 04:08:00 Test Item Value Reference Range Interpretation Comments Alk Phos (test code = Alk Phos) 167 39-136 [facility]2020-06-10 04:08:00 Test Item Value Reference Range Interpretation Comments Bili Total (test code = Bili Total) 0.7 0.2-1.3 [facility]2020-06-10 04:08:00 Test Item Value Reference Range Interpretation Comments Lactic Acid Lvl (test code = Lactic 2.5 0.5-2.2 Acid Lvl) [facility] [id number] 04:08:00 Test Item Value Reference Range Interpretation Comments Procalcitonin Lvl (test 1.27 See_Comment [Au tomated message] code = Procalcitonin Lvl) Th e system which generated this result transmitted ref erence range: <=0.10. The reference range was not used to interpr et this result as normal/abnormal . [facility] [id number] 04:08:00 Test Item Value Reference Range Interpretation Comments PT (test code = PT) 13.1 s 12.0-14.7 [facility] Cent[id number] 04:08:00 Test Item Value Reference Range Interpretation Comments INR (test code = INR) 0.99 1 0.85-1.17 [facility] Cent[id number] 04:08:00 Test Item Value Reference Range Interpretation Comments PTT (test code = PTT) 28.2 s 22.9-35.8 [facility] CenterWdudsbxQOQXXMWOPJ3463-00-75 04:08:00 Test Item Value Reference Range Interpretation Comments RBC Morph (test code = Normal (12/05/19 11:08 RBC Morph) PM) [facility] CenterVxckxlvRTCQJESLZJ5935-34-11 04:08:00 Test Item Value Reference Range Interpretation Comments Plt Morph (test code = Normal (12/05/19 11:08 Plt Morph) PM) [facility]2020-06-10 04:08:00 Test Item Value Reference Range Interpretation Comments S. aureus (test code = Not Detected (12/05/19 S. aureus) 11:08 PM) [facility]2020-06-10 04:08:00 Test Item Value Reference Range Interpretation Comments S. epidermidis (test Not Detected (12/05/19 code = S. epidermidis) 11:08 PM) [facility]2020-06-10 04:08:00 Test Item Value Reference Range Interpretation Comments S. lugdunensis (test Not Detected (12/05/19 code = S. lugdunensis) 11:08 PM) [facility] [id number] 04:08:00 Test Item Value Reference Range Interpretation Comments S. anginosus grp (test Not Detected (12/05/19 code = S. anginosus 11:08 PM) grp) [facility] [id number] 04:08:00 Test Item Value Reference Range Interpretation Comments S. agalactiae (test code Not Detected (12/05/19 = S. agalactiae) 11:08 PM) [facility] [id number] 04:08:00 Test Item Value Reference Range Interpretation Comments S. pneumoniae (test code Not Detected (12/05/19 = S. pneumoniae) 11:08 PM) [facility]2020-06-10 04:08:00 Test Item Value Reference Range Interpretation Comments S. pyogenes (test code Not Detected (12/05/19 = S. pyogenes) 11:08 PM) [facility] [id number] 04:08:00 Test Item Value Reference Range Interpretation Comments E. faecalis (test code Not Detected (12/05/19 = E. faecalis) 11:08 PM) [facility] [id number] 04:08:00 Test Item Value Reference Range Interpretation Comments E. faecium (test code Not Detected (12/05/19 = E. faecium) 11:08 PM) [facility] [id number] 04:08:00 Test Item Value Reference Range Interpretation Comments Staphylococcus spp. (test Not Detected code = Staphylococcus (12/05/19 11:08 PM) spp.) [facility] [id number] 04:08:00 Test Item Value Reference Range Interpretation Comments Streptococcus spp. (test Not Detected (12/05/19 code = Streptococcus 11:08 PM) spp.) [facility] [id number] 04:08:00 Test Item Value Reference Range Interpretation Comments Listeria spp. (test Not Detected (6/9/20 code = Listeria spp.) 11:08 PM) [facility]2020-06-10 04:08:00 Test Item Value Reference Range Interpretation Comments mecA Methicillin Not Detected (12/05/19 Resistance (test code = 11:08 PM) mecA Methicillin Resistance) [place] [address]-06-10 04:08:00 Test Item Value Reference Range Interpretation Comments Andres Vancomycin Not Detected (12/05/19 Resistance (test code = 11:08 PM) Andres Vancomycin Resistance) [place] 204290-06-10 04:08:00 Test Item Value Reference Range Interpretation Comments vanB Vancomycin Not Detected (12/05/19 Resistance (test code = 11:08 PM) vanB Vancomycin Resistance) [place] [address]-06-10 04:08:00 Test Item Value Reference Range Interpretation Comments B/C Ratio (test code = B/C Ratio) 14 1 6-25 [place] [address]-06-10 04:08:00 Test Item Value Reference Range Interpretation Comments Total Protein (test code = Total 7.1 6.4-8.4 Protein) [place] 763680-06-10 04:08:00 Test Item Value Reference Range Interpretation Comments Albumin Lvl (test code = Albumin Lvl) 2.2 3.5-5.0 [place] [address]-06-10 04:08:00 Test Item Value Reference Range Interpretation Comments Globulin (test code = Globulin) 4.9 2.7-4.2 [place] 763680-06-10 04:08:00 Test Item Value Reference Range Interpretation Comments A/G Ratio (test code = A/G Ratio) 0.4 1 0.7-1.6 [place] [address]-06-10 04:08:00 Test Item Value Reference Range Interpretation Comments ALT (test code = ALT) 19 See_Comment [Auto mated message] The system which ge nerated this result transmit bright reference range : <=65. The reference range was not used to interpr et this result as candice l/abnormal. [place] [address]-06-10 04:08:00 Test Item Value Reference Range Interpretation Comments AST (test code = AST) 17 See_Comment [Auto mated message] The system which ge nerated this result transmit bright reference range : <=37. The reference range was not used to interpr et this result as candice l/abnormal. [facility] [id number] 04:08:00 Test Item Value Reference Range Interpretation Comments Alk Phos (test code = Alk Phos) 167 39-[address] [facility] [id number] 04:08:00 Test Item Value Reference Range Interpretation Comments Bili Total (test code = Bili Total) 0.7 0.2-1.[address] [facility] [address] [id number] 04:08:00 Test Item Value Reference Range Interpretation Comments Lactic Acid Lvl (test code = Lactic 2.5 0.5-2.2 Acid Lvl) [facility] [id number] 04:08:00 Test Item Value Reference Range Interpretation Comments Procalcitonin Lvl (test 1.27 See_Comment [Au tomated message] code = Procalcitonin Lvl) Th e system which generated this result transmitted ref erence range: <=0.10. The reference range was not used to interpr et this result as normal/abnormal . [facility] [id number] 04:08:00 Test Item Value Reference Range Interpretation Comments PT (test code = PT) 13.1 s 12.0-14.7 [facility] CenterKjyewfcHSIPEUFKYQ6416-97-15 04:08:00 Test Item Value Reference Range Interpretation Comments INR (test code = INR) 0.99 1 0.85-1.17 [facility] CenterYolkrqgPDUVEOEOHC5624-78-44 04:08:00 Test Item Value Reference Range Interpretation Comments PTT (test code = PTT) 28.2 s 22.9-35.[address] CenterZykxjqmWZRLTGTWMJ4866-10-20 04:08:00 Test Item Value Reference Range Interpretation Comments RBC Morph (test code = Normal (12/05/19 11:08 RBC Morph) PM) [facility] 04:08:00 Test Item Value Reference Range Interpretation Comments Plt Morph (test code = Normal (12/05/19 11:08 Plt Morph) PM) [facility] [id number] 04:08:00 Test Item Value Reference Range Interpretation Comments S. aureus (test code = Not Detected (12/05/19 S. aureus) 11:08 PM) [facility] [id number] 04:08:00 Test Item Value Reference Range Interpretation Comments S. epidermidis (test Not Detected (12/05/19 code = S. epidermidis) 11:08 PM) [facility] [id number] 04:08:00 Test Item Value Reference Range Interpretation Comments S. lugdunensis (test Not Detected (12/05/19 code = S. lugdunensis) 11:08 PM) [facility] [id number] 04:08:00 Test Item Value Reference Range Interpretation Comments S. anginosus grp (test Not Detected (12/05/19 code = S. anginosus 11:08 PM) grp) [facility] [id number] 04:08:00 Test Item Value Reference Range Interpretation Comments S. agalactiae (test code Not Detected (12/05/19 = S. agalactiae) 11:08 PM) [facility] [id number] 04:08:00 Test Item Value Reference Range Interpretation Comments S. pneumoniae (test code Not Detected (12/05/19 = S. pneumoniae) 11:08 PM) [facility] [id number] 04:08:00 Test Item Value Reference Range Interpretation Comments S. pyogenes (test code Not Detected (12/05/19 = S. pyogenes) 11:08 PM) [facility] [id number] 04:08:00 Test Item Value Reference Range Interpretation Comments E. faecalis (test code Not Detected (12/05/19 = E. faecalis) 11:08 PM) [facility] [id number] 04:08:00 Test Item Value Reference Range Interpretation Comments E. faecium (test code Not Detected (12/05/19 = E. faecium) 11:08 PM) [facility] [id number] 04:08:00 Test Item Value Reference Range Interpretation Comments Staphylococcus spp. (test Not Detected code = Staphylococcus (12/05/19 11:08 PM) spp.) [facility] [id number] 04:08:00 Test Item Value Reference Range Interpretation Comments Streptococcus spp. (test Not Detected (12/05/19 code = Streptococcus 11:08 PM) spp.) [place] [address]-06-10 04:08:00 Test Item Value Reference Range Interpretation Comments Listeria spp. (test Not Detected (12/05/19 code = Listeria spp.) 11:08 PM) [place] [address]-06-10 04:08:00 Test Item Value Reference Range Interpretation Comments mecA Methicillin Not Detected (12/05/19 Resistance (test code = 11:08 PM) mecA Methicillin Resistance) [place] [address]-06-10 04:08:00 Test Item Value Reference Range Interpretation Comments Andres Vancomycin Not Detected (12/05/19 Resistance (test code = 11:08 PM) Andres Vancomycin Resistance) [place] [address]-06-10 04:08:00 Test Item Value Reference Range Interpretation Comments vanB Vancomycin Not Detected (12/05/19 Resistance (test code = 11:08 PM) vanB Vancomycin Resistance) [place] [id number] 04:08:00 Test Item Value Reference Range Interpretation Comments B/C Ratio (test code = B/C Ratio) 14 1 6-25 [place] [address]-06-10 04:08:00 Test Item Value Reference Range Interpretation Comments Total Protein (test code = Total 7.1 6.4-8.4 Protein) [place] 763680-06-10 04:08:00 Test Item Value Reference Range Interpretation Comments Albumin Lvl (test code = Albumin Lvl) 2.2 3.5-5.0 [place] [address]-06-10 04:08:00 Test Item Value Reference Range Interpretation Comments Globulin (test code = Globulin) 4.9 2.7-4.2 [place] [address]-06-10 04:08:00 Test Item Value Reference Range Interpretation Comments A/G Ratio (test code = A/G Ratio) 0.4 1 0.7-1.6 [place] [address]-06-10 04:08:00 Test Item Value Reference Range Interpretation Comments ALT (test code = ALT) 19 See_Comment [Auto mated message] The system which ge nerated this result transmit bright reference range : <=65. The reference range was not used to interpr et this result as candice l/abnormal. [facility] [id number] 04:08:00 Test Item Value Reference Range Interpretation Comments AST (test code = AST) 17 See_Comment [Auto mated message] The system which ge nerated this result transmit bright reference range : <=37. The reference range was not used to interpr et this result as candice l/abnormal. [facility] [id number] 04:08:00 Test Item Value Reference Range Interpretation Comments Alk Phos (test code = Alk Phos) 167 39-136 [facility] [id number] 04:08:00 Test Item Value Reference Range Interpretation Comments Bili Total (test code = Bili Total) 0.7 0.2-1.3 [facility] [id number] 04:08:00 Test Item Value Reference Range Interpretation Comments Lactic Acid Lvl (test code = Lactic 2.5 0.5-2.2 Acid Lvl) [facility] [id number] 04:08:00 Test Item Value Reference Range Interpretation Comments Procalcitonin Lvl (test 1.27 See_Comment [Au tomated message] code = Procalcitonin Lvl) Th e system which generated this result transmitted ref erence range: <=0.10. The reference range was not used to interpr et this result as normal/abnormal . [facility] Cent[id number] 04:08:00 Test Item Value Reference Range Interpretation Comments PT (test code = PT) 13.1 s 12.0-14.[address] [facility] CenterOjadrfsYFDCLWIALA1106-03-05 04:08:00 Test Item Value Reference Range Interpretation Comments INR (test code = INR) 0.99 1 0.85-1.[address] [facility] CenterNirqcrnGVTWFWEXSO5401-74-53 04:08:00 Test Item Value Reference Range Interpretation Comments PTT (test code = PTT) 28.2 s 22.9-35.[address] [facility] [address] CenterNmoomgqHNRVPKLWRN2732-56-41 04:08:00 Test Item Value Reference Range Interpretation Comments RBC Morph (test code = Normal (12/05/19 11:08 RBC Morph) PM) [facility] CenterSxbvjrxWQMKBTPOYW4654-02-24 04:08:00 Test Item Value Reference Range Interpretation Comments Plt Morph (test code = Normal (12/05/19 11:08 Plt Morph) PM) [facility] [id number] 04:08:00 Test Item Value Reference Range Interpretation Comments S. aureus (test code = Not Detected (12/05/19 S. aureus) 11:08 PM) [facility] [id number] 04:08:00 Test Item Value Reference Range Interpretation Comments S. epidermidis (test Not Detected (12/05/19 code = S. epidermidis) 11:08 PM) [facility] [id number] 04:08:00 Test Item Value Reference Range Interpretation Comments S. lugdunensis (test Not Detected (12/05/19 code = S. lugdunensis) 11:08 PM) [facility]2020-06-10 04:08:00 Test Item Value Reference Range Interpretation Comments S. anginosus grp (test Not Detected (12/05/19 code = S. anginosus 11:08 PM) grp) [facility] [id number] 04:08:00 Test Item Value Reference Range Interpretation Comments S. agalactiae (test code Not Detected (12/05/19 = S. agalactiae) 11:08 PM) [facility] [id number] 04:08:00 Test Item Value Reference Range Interpretation Comments S. pneumoniae (test code Not Detected (12/05/19 = S. pneumoniae) 11:08 PM) [facility] [id number] 04:08:00 Test Item Value Reference Range Interpretation Comments S. pyogenes (test code Not Detected (12/05/19 = S. pyogenes) 11:08 PM) [facility] [id number] 04:08:00 Test Item Value Reference Range Interpretation Comments E. faecalis (test code Not Detected (12/05/19 = E. faecalis) 11:08 PM) [facility] [id number] 04:08:00 Test Item Value Reference Range Interpretation Comments E. faecium (test code Not Detected (12/05/19 = E. faecium) 11:08 PM) [facility] [id number] 04:08:00 Test Item Value Reference Range Interpretation Comments Staphylococcus spp. (test Not Detected code = Staphylococcus (12/05/19 11:08 PM) spp.) [facility]2020-06-10 04:08:00 Test Item Value Reference Range Interpretation Comments Streptococcus spp. (test Not Detected (12/05/19 code = Streptococcus 11:08 PM) spp.) [facility]2020-06-10 04:08:00 Test Item Value Reference Range Interpretation Comments Listeria spp. (test Not Detected (12/05/19 code = Listeria spp.) 11:08 PM) [place] [address]-06-10 04:08:00 Test Item Value Reference Range Interpretation Comments mecA Methicillin Not Detected (12/05/19 Resistance (test code = 11:08 PM) mecA Methicillin Resistance) [facility]2020-06-10 04:08:00 Test Item Value Reference Range Interpretation Comments Andres Vancomycin Not Detected (12/05/19 Resistance (test code = 11:08 PM) Andres Vancomycin Resistance) [facility]2020-06-10 04:08:00 Test Item Value Reference Range Interpretation Comments vanB Vancomycin Not Detected (12/05/19 Resistance (test code = 11:08 PM) vanB Vancomycin Resistance) [facility]2020-06-10 04:08:00 Test Item Value Reference Range Interpretation Comments B/C Ratio (test code = B/C Ratio) 14 1 6-25 [facility]2020-06-10 04:08:00 Test Item Value Reference Range Interpretation Comments Total Protein (test code = Total 7.1 6.4-8.4 Protein) [facility]2020-06-10 04:08:00 Test Item Value Reference Range Interpretation Comments Albumin Lvl (test code = Albumin Lvl) 2.2 3.5-5.0 [facility]2020-06-10 04:08:00 Test Item Value Reference Range Interpretation Comments Globulin (test code = Globulin) 4.9 2.7-4.2 [place] 763680-06-10 04:08:00 Test Item Value Reference Range Interpretation Comments A/G Ratio (test code = A/G Ratio) 0.4 1 0.7-1.6 [place] 763680-06-10 04:08:00 Test Item Value Reference Range Interpretation Comments ALT (test code = ALT) 19 See_Comment [Auto mated message] The system which ge nerated this result transmit bright reference range : <=65. The reference range was not used to interpr et this result as candice l/abnormal. [facility] [employer] [id number] 04:08:00 Test Item Value Reference Range Interpretation Comments AST (test code = AST) 17 See_Comment [Auto mated message] The system which ge nerated this result transmit bright reference range : <=37. The reference range was not used to interpr et this result as candice l/abnormal. [facility] [employer] [id number] 04:08:00 Test Item Value Reference Range Interpretation Comments Alk Phos (test code = Alk Phos) 167 39-136 [facility] [employer] [id number] 04:08:00 Test Item Value Reference Range Interpretation Comments Bili Total (test code = Bili Total) 0.7 0.2-1.3 [facility] [employer] [id number] 04:08:00 Test Item Value Reference Range Interpretation Comments Lactic Acid Lvl (test code = Lactic 2.5 0.5-2.2 Acid Lvl) [facility] [employer] [id number] 04:08:00 Test Item Value Reference Range Interpretation Comments Procalcitonin Lvl (test 1.27 See_Comment [Au tomated message] code = Procalcitonin Lvl) Th e system which generated this result transmitted ref erence range: <=0.10. The reference range was not used to interpr et this result as normal/abnormal . [facility] AmericaEmyzenwCQKPWJKNRF4698-00-28 04:08:00 Test Item Value Reference Range Interpretation Comments PT (test code = PT) 13.1 s 12.0-14.7 [facility] [id number] 04:08:00 Test Item Value Reference Range Interpretation Comments INR (test code = INR) 0.99 1 0.85-1.17 [facility] [id number] 04:08:00 Test Item Value Reference Range Interpretation Comments PTT (test code = PTT) 28.2 s 22.9-35.8 [facility] A[id number] 04:08:00 Test Item Value Reference Range Interpretation Comments RBC Morph (test code = Normal (12/05/19 11:08 RBC Morph) PM) [facility] [id number] 04:08:00 Test Item Value Reference Range Interpretation Comments Plt Morph (test code = Normal (12/05/19 11:08 Plt Morph) PM) [facility] AmericaannMOLEC[facility] [id number] 04:08:00 Test Item Value Reference Range Interpretation Comments S. aureus (test code = Not Detected (12/05/19 S. aureus) 11:08 PM) [facility] AmericaannNHLECULAR [id number] 04:08:00 Test Item Value Reference Range Interpretation Comments S. epidermidis (test Not Detected (12/05/19 code = S. epidermidis) 11:08 PM) [facility]LEC[facility] [id number] 04:08:00 Test Item Value Reference Range Interpretation Comments S. lugdunensis (test Not Detected (12/05/19 code = S. lugdunensis) 11:08 PM) [facility]ann[facility] [id number] 04:08:00 Test Item Value Reference Range Interpretation Comments S. anginosus grp (test Not Detected (12/05/19 code = S. anginosus 11:08 PM) grp) [facility]LE[facility] [id number] 04:08:00 Test Item Value Reference Range Interpretation Comments S. agalactiae (test code Not Detected (12/05/19 = S. agalactiae) 11:08 PM) [facility]LE[facility] [id number] 04:08:00 Test Item Value Reference Range Interpretation Comments S. pneumoniae (test code Not Detected (12/05/19 = S. pneumoniae) 11:08 PM) [facility] [id number] 04:08:00 Test Item Value Reference Range Interpretation Comments S. pyogenes (test code Not Detected (12/05/19 = S. pyogenes) 11:08 PM) [facility] AmericaannNHLECULAR [id number] 04:08:00 Test Item Value Reference Range Interpretation Comments E. faecalis (test code Not Detected (12/05/19 = E. faecalis) 11:08 PM) [facility]LE[facility] [id number] 04:08:00 Test Item Value Reference Range Interpretation Comments E. faecium (test code Not Detected (12/05/19 = E. faecium) 11:08 PM) [place] [id number] 04:08:00 Test Item Value Reference Range Interpretation Comments Staphylococcus spp. (test Not Detected code = Staphylococcus (12/05/19 11:08 PM) spp.) [facility]2020-06-10 04:08:00 Test Item Value Reference Range Interpretation Comments Streptococcus spp. (test Not Detected (12/05/19 code = Streptococcus 11:08 PM) spp.) [facility]2020-06-10 04:08:00 Test Item Value Reference Range Interpretation Comments Listeria spp. (test Not Detected (12/05/19 code = Listeria spp.) 11:08 PM) [place] [address]-06-10 04:08:00 Test Item Value Reference Range Interpretation Comments mecA Methicillin Not Detected (12/05/19 Resistance (test code = 11:08 PM) mecA Methicillin Resistance) [facility]2020-06-10 04:08:00 Test Item Value Reference Range Interpretation Comments Andres Vancomycin Not Detected (12/05/19 Resistance (test code = 11:08 PM) Andres Vancomycin Resistance) [facility]2020-06-10 04:08:00 Test Item Value Reference Range Interpretation Comments vanB Vancomycin Not Detected (12/05/19 Resistance (test code = 11:08 PM) vanB Vancomycin Resistance) [facility]2020-06-10 04:08:00 Test Item Value Reference Range Interpretation Comments B/C Ratio (test code = B/C Ratio) 14 1 6-25 [facility]2020-06-10 04:08:00 Test Item Value Reference Range Interpretation Comments Total Protein (test code = Total 7.1 6.4-8.4 Protein) [facility]2020-06-10 04:08:00 Test Item Value Reference Range Interpretation Comments Albumin Lvl (test code = Albumin Lvl) 2.2 3.5-5.0 [facility]2020-06-10 04:08:00 Test Item Value Reference Range Interpretation Comments Globulin (test code = Globulin) 4.9 2.7-4.2 [facility] [id number] 04:08:00 Test Item Value Reference Range Interpretation Comments A/G Ratio (test code = A/G Ratio) 0.4 1 0.7-1.6 [facility] [id number] 04:08:00 Test Item Value Reference Range Interpretation Comments ALT (test code = ALT) 19 See_Comment [Auto mated message] The system which ge nerated this result transmit bright reference range : <=65. The reference range was not used to interpr et this result as candice l/abnormal. [facility] [id number] 04:08:00 Test Item Value Reference Range Interpretation Comments AST (test code = AST) 17 See_Comment [Auto mated message] The system which ge nerated this result transmit bright reference range : <=37. The reference range was not used to interpr et this result as candice l/abnormal. [facility] [id number] 04:08:00 Test Item Value Reference Range Interpretation Comments Alk Phos (test code = Alk Phos) 167 39-136 [facility] [id number] 04:08:00 Test Item Value Reference Range Interpretation Comments Bili Total (test code = Bili Total) 0.7 0.2-1.3 [facility] [id number] 04:08:00 Test Item Value Reference Range Interpretation Comments Lactic Acid Lvl (test code = Lactic 2.5 0.5-2.2 Acid Lvl) [facility] [id number] 04:08:00 Test Item Value Reference Range Interpretation Comments Procalcitonin Lvl (test 1.27 See_Comment [Au tomated message] code = Procalcitonin Lvl) Th e system which generated this result transmitted ref erence range: <=0.10. The reference range was not used to interpr et this result as normal/abnormal . [facility] [id number] 04:08:00 Test Item Value Reference Range Interpretation Comments PT (test code = PT) 13.1 s 12.0-14.7 [facility] AmericaUknxisaKUMNCKHEPT5608-74-29 04:08:00 Test Item Value Reference Range Interpretation Comments INR (test code = INR) 0.99 1 0.85-1.17 [facility]aufAKPRAPAHHO4929-39-16 04:08:00 Test Item Value Reference Range Interpretation Comments PTT (test code = PTT) 28.2 s 22.9-35.8 [facility] HospitalJwxfazxFDILUMHHVS9167-61-03 04:08:00 Test Item Value Reference Range Interpretation Comments RBC Morph (test code = Normal (12/05/19 11:08 RBC Morph) PM) [id number] 04:08:00 Test Item Value Reference Range Interpretation Comments Plt Morph (test code = Normal (12/05/19 11:08 Plt Morph) PM) [facility] [id number] 04:08:00 Test Item Value Reference Range Interpretation Comments S. aureus (test code = Not Detected (12/05/19 S. aureus) 11:08 PM) [facility] [id number] 04:08:00 Test Item Value Reference Range Interpretation Comments S. epidermidis (test Not Detected (12/05/19 code = S. epidermidis) 11:08 PM) [facility] [id number] 04:08:00 Test Item Value Reference Range Interpretation Comments S. lugdunensis (test Not Detected (12/05/19 code = S. lugdunensis) 11:08 PM) [facility] [id number] 04:08:00 Test Item Value Reference Range Interpretation Comments S. anginosus grp (test Not Detected (12/05/19 code = S. anginosus 11:08 PM) grp) [facility] [id number] 04:08:00 Test Item Value Reference Range Interpretation Comments S. agalactiae (test code Not Detected (12/05/19 = S. agalactiae) 11:08 PM) [facility] [id number] 04:08:00 Test Item Value Reference Range Interpretation Comments S. pneumoniae (test code Not Detected (12/05/19 = S. pneumoniae) 11:08 PM) [facility] [id number] 04:08:00 Test Item Value Reference Range Interpretation Comments S. pyogenes (test code Not Detected (12/05/19 = S. pyogenes) 11:08 PM) [facility]2020-06-10 04:08:00 Test Item Value Reference Range Interpretation Comments E. faecalis (test code Not Detected (12/05/19 = E. faecalis) 11:08 PM) [place] [id number] 04:08:00 Test Item Value Reference Range Interpretation Comments E. faecium (test code Not Detected (12/05/19 = E. faecium) 11:08 PM) [facility]2020-06-10 04:08:00 Test Item Value Reference Range Interpretation Comments Staphylococcus spp. (test Not Detected code = Staphylococcus (12/05/19 11:08 PM) spp.) [facility]2020-06-10 04:08:00 Test Item Value Reference Range Interpretation Comments Streptococcus spp. (test Not Detected (12/05/19 code = Streptococcus 11:08 PM) spp.) [facility]2020-06-10 04:08:00 Test Item Value Reference Range Interpretation Comments Listeria spp. (test Not Detected (12/05/19 code = Listeria spp.) 11:08 PM) [facility]2020-06-10 04:08:00 Test Item Value Reference Range Interpretation Comments mecA Methicillin Not Detected (12/05/19 Resistance (test code = 11:08 PM) mecA Methicillin Resistance) [facility]2020-06-10 04:08:00 Test Item Value Reference Range Interpretation Comments Andres Vancomycin Not Detected (12/05/19 Resistance (test code = 11:08 PM) Andres Vancomycin Resistance) [facility]2020-06-10 04:08:00 Test Item Value Reference Range Interpretation Comments vanB Vancomycin Not Detected (12/05/19 Resistance (test code = 11:08 PM) vanB Vancomycin Resistance) [facility] [id number] 04:08:00 Test Item Value Reference Range Interpretation Comments B/C Ratio (test code = B/C Ratio) 14 1 6-25 [facility] [id number] 04:08:00 Test Item Value Reference Range Interpretation Comments Total Protein (test code = Total 7.1 6.4-8.4 Protein) [facility] [id number] 04:08:00 Test Item Value Reference Range Interpretation Comments Albumin Lvl (test code = Albumin Lvl) 2.2 3.5-5.0 [facility] [id number] 04:08:00 Test Item Value Reference Range Interpretation Comments Globulin (test code = Globulin) 4.9 2.7-4.2 [facility] [id number] 04:08:00 Test Item Value Reference Range Interpretation Comments A/G Ratio (test code = A/G Ratio) 0.4 1 0.7-1.[address] CenterAlt[facility] Education [id number] 04:08:00 Test Item Value Reference Range Interpretation Comments ALT (test code = ALT) 19 See_Comment [Auto mated message] The system which ge nerated this result transmit bright reference range : <=65. The reference range was not used to interpr et this result as candice l/abnormal. [facility] [id number] 04:08:00 Test Item Value Reference Range Interpretation Comments AST (test code = AST) 17 See_Comment [Auto mated message] The system which ge nerated this result transmit bright reference range : <=37. The reference range was not used to interpr et this result as candice l/abnormal. [facility] [id number] 04:08:00 Test Item Value Reference Range Interpretation Comments Alk Phos (test code = Alk Phos) 167 39-136 [facility] [id number] 04:08:00 Test Item Value Reference Range Interpretation Comments Bili Total (test code = Bili Total) 0.7 0.2-1.3 [facility] [id number] 04:08:00 Test Item Value Reference Range Interpretation Comments Lactic Acid Lvl (test code = Lactic 2.5 0.5-2.2 Acid Lvl) [facility] [id number] 04:08:00 Test Item Value Reference Range Interpretation Comments Procalcitonin Lvl (test 1.27 See_Comment [Au tomated message] code = Procalcitonin Lvl) Th e system which generated this result transmitted ref erence range: <=0.10. The reference range was not used to interpr et this result as normal/abnormal . [facility] [id number] 04:08:00 Test Item Value Reference Range Interpretation Comments PT (test code = PT) 13.1 s 12.0-14.7 [facility]AilmbmxHUBQXNPNLJ8781-96-53 04:08:00 Test Item Value Reference Range Interpretation Comments INR (test code = INR) 0.99 1 0.85-1.17 [id number] 04:08:00 Test Item Value Reference Range Interpretation Comments PTT (test code = PTT) 28.2 s 22.9-35.8 [facility] CenterNirahsgARODNRRVWG6349-08-75 04:08:00 Test Item Value Reference Range Interpretation Comments RBC Morph (test code = Normal (12/05/19 11:08 RBC Morph) PM) [facility] CenterZotujfoIVDNIQRYTK0161-21-28 04:08:00 Test Item Value Reference Range Interpretation Comments Plt Morph (test code = Normal (12/05/19 11:08 Plt Morph) PM) [facility]2020-06-10 04:08:00 Test Item Value Reference Range Interpretation Comments S. aureus (test code = Not Detected (12/05/19 S. aureus) 11:08 PM) [facility] [id number] 04:08:00 Test Item Value Reference Range Interpretation Comments S. epidermidis (test Not Detected (12/05/19 code = S. epidermidis) 11:08 PM) [facility] [id number] 04:08:00 Test Item Value Reference Range Interpretation Comments S. lugdunensis (test Not Detected (12/05/19 code = S. lugdunensis) 11:08 PM) [facility] [id number] 04:08:00 Test Item Value Reference Range Interpretation Comments S. anginosus grp (test Not Detected (12/05/19 code = S. anginosus 11:08 PM) grp) [facility] [id number] 04:08:00 Test Item Value Reference Range Interpretation Comments S. agalactiae (test code Not Detected (12/05/19 = S. agalactiae) 11:08 PM) [facility] [id number] 04:08:00 Test Item Value Reference Range Interpretation Comments S. pneumoniae (test code Not Detected (12/05/19 = S. pneumoniae) 11:08 PM) [facility] [id number] 04:08:00 Test Item Value Reference Range Interpretation Comments S. pyogenes (test code Not Detected (12/05/19 = S. pyogenes) 11:08 PM) [facility]2020-06-10 04:08:00 Test Item Value Reference Range Interpretation Comments E. faecalis (test code Not Detected (12/05/19 = E. faecalis) 11:08 PM) [facility]2020-06-10 04:08:00 Test Item Value Reference Range Interpretation Comments E. faecium (test code Not Detected (12/05/19 = E. faecium) 11:08 PM) [facility]2020-06-10 04:08:00 Test Item Value Reference Range Interpretation Comments Staphylococcus spp. (test Not Detected code = Staphylococcus (12/05/19 11:08 PM) spp.) [facility]2020-06-10 04:08:00 Test Item Value Reference Range Interpretation Comments Streptococcus spp. (test Not Detected (12/05/19 code = Streptococcus 11:08 PM) spp.) [facility]2020-06-10 04:08:00 Test Item Value Reference Range Interpretation Comments Listeria spp. (test Not Detected (12/05/19 code = Listeria spp.) 11:08 PM) [facility]2020-06-10 04:08:00 Test Item Value Reference Range Interpretation Comments mecA Methicillin Not Detected (12/05/19 Resistance (test code = 11:08 PM) mecA Methicillin Resistance) [facility]2020-06-10 04:08:00 Test Item Value Reference Range Interpretation Comments Adnres Vancomycin Not Detected (12/05/19 Resistance (test code = 11:08 PM) Andres Vancomycin Resistance) [facility]2020-06-10 04:08:00 Test Item Value Reference Range Interpretation Comments vanB Vancomycin Not Detected (12/05/19 Resistance (test code = 11:08 PM) vanB Vancomycin Resistance) [facility]2020-06-10 04:08:00 Test Item Value Reference Range Interpretation Comments B/C Ratio (test code = B/C Ratio) 14 1 6-25 [facility] [id number] 04:08:00 Test Item Value Reference Range Interpretation Comments Total Protein (test code = Total 7.1 6.4-8.4 Protein) [facility] [id number] 04:08:00 Test Item Value Reference Range Interpretation Comments Albumin Lvl (test code = Albumin Lvl) 2.2 3.5-5.0 [facility] [id number] 04:08:00 Test Item Value Reference Range Interpretation Comments Globulin (test code = Globulin) 4.9 2.7-4.2 [facility] [id number] 04:08:00 Test Item Value Reference Range Interpretation Comments A/G Ratio (test code = A/G Ratio) 0.4 1 0.7-1.[address] [facility] [id number] 04:08:00 Test Item Value Reference Range Interpretation Comments ALT (test code = ALT) 19 See_Comment [Auto mated message] The system which ge nerated this result transmit bright reference range : <=65. The reference range was not used to interpr et this result as candice l/abnormal. [facility] [id number] 04:08:00 Test Item Value Reference Range Interpretation Comments AST (test code = AST) 17 See_Comment [Auto mated message] The system which ge nerated this result transmit bright reference range : <=37. The reference range was not used to interpr et this result as candice l/abnormal. [facility] [id number] 04:08:00 Test Item Value Reference Range Interpretation Comments Alk Phos (test code = Alk Phos) 167 39-136 [facility] [id number] 04:08:00 Test Item Value Reference Range Interpretation Comments Bili Total (test code = Bili Total) 0.7 0.2-1.3 [facility] [id number] 04:08:00 Test Item Value Reference Range Interpretation Comments Lactic Acid Lvl (test code = Lactic 2.5 0.5-2.2 Acid Lvl) [facility] [id number] 04:08:00 Test Item Value Reference Range Interpretation Comments Procalcitonin Lvl (test 1.27 See_Comment [Au tomated message] code = Procalcitonin Lvl) e system which generated this result transmitted ref erence range: <=0.10. The reference range was not used to interpr et this result as normal/abnormal . [facility] [id number] 04:08:00 Test Item Value Reference Range Interpretation Comments PT (test code = PT) 13.1 s 12.0-14.7 [facility] CenterSerswaqPKGGWIZMQL8960-81-06 04:08:00 Test Item Value Reference Range Interpretation Comments INR (test code = INR) 0.99 1 0.85-1.17 [facility] CenterFxwcdvxCKWQSMGJDU5750-09-13 04:08:00 Test Item Value Reference Range Interpretation Comments PTT (test code = PTT) 28.2 s 22.9-35.8 [facility] [id number] 04:08:00 Test Item Value Reference Range Interpretation Comments RBC Morph (test code = Normal (12/05/19 11:08 RBC Morph) PM) [facility] [id number] 04:08:00 Test Item Value Reference Range Interpretation Comments Plt Morph (test code = Normal (12/05/19 11:08 Plt Morph) PM) [facility] [id number] 04:08:00 Test Item Value Reference Range Interpretation Comments S. aureus (test code = Not Detected (12/05/19 S. aureus) 11:08 PM) [facility] [id number] 04:08:00 Test Item Value Reference Range Interpretation Comments S. epidermidis (test Not Detected (12/05/19 code = S. epidermidis) 11:08 PM) [facility] [id number] 04:08:00 Test Item Value Reference Range Interpretation Comments S. lugdunensis (test Not Detected (12/05/19 code = S. lugdunensis) 11:08 PM) [facility] [id number] 04:08:00 Test Item Value Reference Range Interpretation Comments S. anginosus grp (test Not Detected (12/05/19 code = S. anginosus 11:08 PM) grp) [facility] [id number] 04:08:00 Test Item Value Reference Range Interpretation Comments S. agalactiae (test code Not Detected (12/05/19 = S. agalactiae) 11:08 PM) [facility]2020-06-10 04:08:00 Test Item Value Reference Range Interpretation Comments S. pneumoniae (test code Not Detected (12/05/19 = S. pneumoniae) 11:08 PM) [facility]2020-06-10 04:08:00 Test Item Value Reference Range Interpretation Comments S. pyogenes (test code Not Detected (12/05/19 = S. pyogenes) 11:08 PM) [facility]2020-06-10 04:08:00 Test Item Value Reference Range Interpretation Comments E. faecalis (test code Not Detected (12/05/19 = E. faecalis) 11:08 PM) [facility]2020-06-10 04:08:00 Test Item Value Reference Range Interpretation Comments E. faecium (test code Not Detected (12/05/19 = E. faecium) 11:08 PM) [facility]2020-06-10 04:08:00 Test Item Value Reference Range Interpretation Comments Staphylococcus spp. (test Not Detected code = Staphylococcus (12/05/19 11:08 PM) spp.) [facility]2020-06-10 04:08:00 Test Item Value Reference Range Interpretation Comments Streptococcus spp. (test Not Detected (12/05/19 code = Streptococcus 11:08 PM) spp.) [facility]2020-06-10 04:08:00 Test Item Value Reference Range Interpretation Comments Listeria spp. (test Not Detected (12/05/19 code = Listeria spp.) 11:08 PM) [facility]2020-06-10 04:08:00 Test Item Value Reference Range Interpretation Comments mecA Methicillin Not Detected (12/05/19 Resistance (test code = 11:08 PM) mecA Methicillin Resistance) [facility]2020-06-10 04:08:00 Test Item Value Reference Range Interpretation Comments Andres Vancomycin Not Detected (12/05/19 Resistance (test code = 11:08 PM) Andres Vancomycin Resistance) [facility]2020-06-10 04:08:00 Test Item Value Reference Range Interpretation Comments vanB Vancomycin Not Detected (12/05/19 Resistance (test code = 11:08 PM) vanB Vancomycin Resistance) [facility] AmericaWyzAnt.comECU HEALTH CHOWAN [id number] 04:08:00 Test Item Value Reference Range Interpretation Comments B/C Ratio (test code = B/C Ratio) 14 1 6-25 [facility] AmericaWyzAnt.comASHLEY [place] [id number] 04:08:00 Test Item Value Reference Range Interpretation Comments Total Protein (test code = Total 7.1 6.4-8.4 Protein) [place] [id number] 04:08:00 Test Item Value Reference Range Interpretation Comments Albumin Lvl (test code = Albumin Lvl) 2.2 3.5-5.0 [facility] AmericaWyzAnt.comSAVANNAH [place] [id number] 04:08:00 Test Item Value Reference Range Interpretation Comments Globulin (test code = Globulin) 4.9 2.7-4.2 [facility] AmericaWyzAnt.comASHLEY [place]ILLE [id number] 04:08:00 Test Item Value Reference Range Interpretation Comments A/G Ratio (test code = A/G Ratio) 0.4 1 0.7-1.6 [facility] [id number] 04:08:00 Test Item Value Reference Range Interpretation Comments ALT (test code = ALT) 19 See_Comment [Auto mated message] The system which ge nerated this result transmit bright reference range : <=65. The reference range was not used to interpr et this result as candice l/abnormal. [facility] [id number] 04:08:00 Test Item Value Reference Range Interpretation Comments AST (test code = AST) 17 See_Comment [Auto mated message] The system which ge nerated this result transmit bright reference range : <=37. The reference range was not used to interpr et this result as candice l/abnormal. [facility] [id number] 04:08:00 Test Item Value Reference Range Interpretation Comments Alk Phos (test code = Alk Phos) 167 39-136 [facility] [id number] 04:08:00 Test Item Value Reference Range Interpretation Comments Bili Total (test code = Bili Total) 0.7 0.2-1.3 [facility] [id number] 04:08:00 Test Item Value Reference Range Interpretation Comments Lactic Acid Lvl (test code = Lactic 2.5 0.5-2.2 Acid Lvl) [facility] [id number] 04:08:00 Test Item Value Reference Range Interpretation Comments Procalcitonin Lvl (test 1.27 See_Comment [Au tomated message] code = Procalcitonin Lvl) Th e system which generated this result transmitted ref erence range: <=0.10. The reference range was not used to interpr et this result as normal/abnormal . [facility] [id number] 04:08:00 Test Item Value Reference Range Interpretation Comments PT (test code = PT) 13.1 s 12.0-14.[address] [facility] [address] [facility] [id number] 04:08:00 Test Item Value Reference Range Interpretation Comments INR (test code = INR) 0.99 1 0.85-1.[address] [facility] [address] [id number] 04:08:00 Test Item Value Reference Range Interpretation Comments PTT (test code = PTT) 28.2 s 22.9-35.[address] [facility] [id number] 04:08:00 Test Item Value Reference Range Interpretation Comments RBC Morph (test code = Normal (12/05/19 11:08 RBC Morph) PM) [facility] [id number] 04:08:00 Test Item Value Reference Range Interpretation Comments Plt Morph (test code = Normal (12/05/19 11:08 Plt Morph) PM) [facility] [id number] 04:08:00 Test Item Value Reference Range Interpretation Comments S. aureus (test code = Not Detected (12/05/19 S. aureus) 11:08 PM) [facility] [id number] 04:08:00 Test Item Value Reference Range Interpretation Comments S. epidermidis (test Not Detected (12/05/19 code = S. epidermidis) 11:08 PM) [facility]LE[facility] [id number] 04:08:00 Test Item Value Reference Range Interpretation Comments S. lugdunensis (test Not Detected (12/05/19 code = S. lugdunensis) 11:08 PM) [facility] AmericaannNHLECULAR [id number] 04:08:00 Test Item Value Reference Range Interpretation Comments S. anginosus grp (test Not Detected (12/05/19 code = S. anginosus 11:08 PM) grp) [facility]2020-06-10 04:08:00 Test Item Value Reference Range Interpretation Comments S. agalactiae (test code Not Detected (12/05/19 = S. agalactiae) 11:08 PM) [facility]2020-06-10 04:08:00 Test Item Value Reference Range Interpretation Comments S. pneumoniae (test code Not Detected (12/05/19 = S. pneumoniae) 11:08 PM) [facility]2020-06-10 04:08:00 Test Item Value Reference Range Interpretation Comments S. pyogenes (test code Not Detected (12/05/19 = S. pyogenes) 11:08 PM) [facility]2020-06-10 04:08:00 Test Item Value Reference Range Interpretation Comments E. faecalis (test code Not Detected (12/05/19 = E. faecalis) 11:08 PM) [facility]2020-06-10 04:08:00 Test Item Value Reference Range Interpretation Comments E. faecium (test code Not Detected (12/05/19 = E. faecium) 11:08 PM) [facility]2020-06-10 04:08:00 Test Item Value Reference Range Interpretation Comments Staphylococcus spp. (test Not Detected code = Staphylococcus (12/05/19 11:08 PM) spp.) [facility]2020-06-10 04:08:00 Test Item Value Reference Range Interpretation Comments Streptococcus spp. (test Not Detected (12/05/19 code = Streptococcus 11:08 PM) spp.) [facility]2020-06-10 04:08:00 Test Item Value Reference Range Interpretation Comments Listeria spp. (test Not Detected (12/05/19 code = Listeria spp.) 11:08 PM) [facility]2020-06-10 04:08:00 Test Item Value Reference Range Interpretation Comments mecA Methicillin Not Detected (12/05/19 Resistance (test code = 11:08 PM) mecA Methicillin Resistance) [facility]2020-06-10 04:08:00 Test Item Value Reference Range Interpretation Comments Andres Vancomycin Not Detected (12/05/19 Resistance (test code = 11:08 PM) Andres Vancomycin Resistance) [facility] [id number] 04:08:00 Test Item Value Reference Range Interpretation Comments vanB Vancomycin Not Detected (12/05/19 Resistance (test code = 11:08 PM) vanB Vancomycin Resistance) [facility] [id number] 04:08:00 Test Item Value Reference Range Interpretation Comments B/C Ratio (test code = B/C Ratio) 14 1 6-25 [facility] [id number] 04:08:00 Test Item Value Reference Range Interpretation Comments Total Protein (test code = Total 7.1 6.4-8.4 Protein) [facility] [id number] 04:08:00 Test Item Value Reference Range Interpretation Comments Albumin Lvl (test code = Albumin Lvl) 2.2 3.5-5.0 [facility]2020-06-10 04:08:00 Test Item Value Reference Range Interpretation Comments Globulin (test code = Globulin) 4.9 2.7-4.2 [facility] [id number] 04:08:00 Test Item Value Reference Range Interpretation Comments A/G Ratio (test code = A/G Ratio) 0.4 1 0.7-1.6 [facility]2020-06-10 04:08:00 Test Item Value Reference Range Interpretation Comments ALT (test code = ALT) 19 See_Comment [Auto mated message] The system which ge nerated this result transmit bright reference range : <=65. The reference range was not used to interpr et this result as candice l/abnormal. [facility] [id number] 04:08:00 Test Item Value Reference Range Interpretation Comments AST (test code = AST) 17 See_Comment [Auto mated message] The system which ge nerated this result transmit bright reference range : <=37. The reference range was not used to interpr et this result as candice l/abnormal. [facility]2020-06-10 04:08:00 Test Item Value Reference Range Interpretation Comments Alk Phos (test code = Alk Phos) 167 39-136 [facility]2020-06-10 04:08:00 Test Item Value Reference Range Interpretation Comments Bili Total (test code = Bili Total) 0.7 0.2-1.[address] [facility] [address] [id number] 04:08:00 Test Item Value Reference Range Interpretation Comments Lactic Acid Lvl (test code = Lactic 2.5 0.5-2.2 Acid Lvl) [facility] [id number] 04:08:00 Test Item Value Reference Range Interpretation Comments Procalcitonin Lvl (test 1.27 See_Comment [Au tomated message] code = Procalcitonin Lvl) e system which generated this result transmitted ref erence range: <=0.10. The reference range was not used to interpr et this result as normal/abnormal . [facility] CenterYrrskdfAYEGXLWAEN9581-01-53 04:08:00 Test Item Value Reference Range Interpretation Comments PT (test code = PT) 13.1 s 12.0-14.7 [facility] CenterKmqdgsvIIKFRHNQTL7262-30-15 04:08:00 Test Item Value Reference Range Interpretation Comments INR (test code = INR) 0.99 1 0.85-1.17 [facility] CenterLehkuwmEGGRLHPLYK2063-35-97 04:08:00 Test Item Value Reference Range Interpretation Comments PTT (test code = PTT) 28.2 s 22.9-35.8 [facility]PYQLKZERXB9507-59-39 04:08:00 Test Item Value Reference Range Interpretation Comments RBC Morph (test code = Normal (12/05/19 11:08 RBC Morph) PM) [facility] [id number] 04:08:00 Test Item Value Reference Range Interpretation Comments Plt Morph (test code = Normal (12/05/19 11:08 Plt Morph) PM) [facility] [id number] 04:08:00 Test Item Value Reference Range Interpretation Comments S. aureus (test code = Not Detected (12/05/19 S. aureus) 11:08 PM) [facility] [id number] 04:08:00 Test Item Value Reference Range Interpretation Comments S. epidermidis (test Not Detected (12/05/19 code = S. epidermidis) 11:08 PM) [facility] [id number] 04:08:00 Test Item Value Reference Range Interpretation Comments S. lugdunensis (test Not Detected (12/05/19 code = S. lugdunensis) 11:08 PM) [facility] [id number] 04:08:00 Test Item Value Reference Range Interpretation Comments S. anginosus grp (test Not Detected (12/05/19 code = S. anginosus 11:08 PM) grp) [facility] [id number] 04:08:00 Test Item Value Reference Range Interpretation Comments S. agalactiae (test code Not Detected (12/05/19 = S. agalactiae) 11:08 PM) [facility] [id number] 04:08:00 Test Item Value Reference Range Interpretation Comments S. pneumoniae (test code Not Detected (12/05/19 = S. pneumoniae) 11:08 PM) [facility] [id number] 04:08:00 Test Item Value Reference Range Interpretation Comments S. pyogenes (test code Not Detected (12/05/19 = S. pyogenes) 11:08 PM) [facility] [id number] 04:08:00 Test Item Value Reference Range Interpretation Comments E. faecalis (test code Not Detected (12/05/19 = E. faecalis) 11:08 PM) [facility] [id number] 04:08:00 Test Item Value Reference Range Interpretation Comments E. faecium (test code Not Detected (12/05/19 = E. faecium) 11:08 PM) [facility] [id number] 04:08:00 Test Item Value Reference Range Interpretation Comments Staphylococcus spp. (test Not Detected code = Staphylococcus (12/05/19 11:08 PM) spp.) [facility] [id number] 04:08:00 Test Item Value Reference Range Interpretation Comments Streptococcus spp. (test Not Detected (12/05/19 code = Streptococcus 11:08 PM) spp.) [facility] [id number] 04:08:00 Test Item Value Reference Range Interpretation Comments Listeria spp. (test Not Detected (12/05/19 code = Listeria spp.) 11:08 PM) [facility] [id number] 04:08:00 Test Item Value Reference Range Interpretation Comments mecA Methicillin Not Detected (12/05/19 Resistance (test code = 11:08 PM) mecA Methicillin Resistance) [facility] QYJGJXJSDZ6966-05-01 04:08:00 Test Item Value Reference Range Interpretation Comments Andres Vancomycin Not Detected (12/05/19 Resistance (test code = 11:08 PM) Andres Vancomycin Resistance) [facility] [id number] 04:08:00 Test Item Value Reference Range Interpretation Comments vanB Vancomycin Not Detected (12/05/19 Resistance (test code = 11:08 PM) vanB Vancomycin Resistance) [facility] [id number] 04:08:00 Test Item Value Reference Range Interpretation Comments B/C Ratio (test code = B/C Ratio) 14 1 6-25 [facility] [id number] 04:08:00 Test Item Value Reference Range Interpretation Comments Total Protein (test code = Total 7.1 6.4-8.4 Protein) [facility] [id number] 04:08:00 Test Item Value Reference Range Interpretation Comments Albumin Lvl (test code = Albumin Lvl) 2.2 3.5-5.0 [facility] [id number] 04:08:00 Test Item Value Reference Range Interpretation Comments Globulin (test code = Globulin) 4.9 2.7-4.2 [facility] [id number] 04:08:00 Test Item Value Reference Range Interpretation Comments A/G Ratio (test code = A/G Ratio) 0.4 1 0.7-1.6 [facility] [id number] 04:08:00 Test Item Value Reference Range Interpretation Comments ALT (test code = ALT) 19 See_Comment [Auto mated message] The system which ge nerated this result transmit bright reference range : <=65. The reference range was not used to interpr et this result as candice l/abnormal. [facility] [id number] 04:08:00 Test Item Value Reference Range Interpretation Comments AST (test code = AST) 17 See_Comment [Auto mated message] The system which ge nerated this result transmit bright reference range : <=37. The reference range was not used to interpr et this result as candice l/abnormal. [facility] [id number] 04:08:00 Test Item Value Reference Range Interpretation Comments Alk Phos (test code = Alk Phos) 167 39-136 [facility]2020-06-10 04:08:00 Test Item Value Reference Range Interpretation Comments Bili Total (test code = Bili Total) 0.7 0.2-1.3 [facility]2020-06-10 04:08:00 Test Item Value Reference Range Interpretation Comments Lactic Acid Lvl (test code = Lactic 2.5 0.5-2.2 Acid Lvl) [facility] [id number] 04:08:00 Test Item Value Reference Range Interpretation Comments Procalcitonin Lvl (test 1.27 See_Comment [Au tomated message] code = Procalcitonin Lvl) e system which generated this result transmitted ref erence range: <=0.10. The reference range was not used to interpr et this result as normal/abnormal . [facility] [id number] 04:08:00 Test Item Value Reference Range Interpretation Comments PT (test code = PT) 13.1 s 12.0-14.[address] [facility] Cent[id number] 04:08:00 Test Item Value Reference Range Interpretation Comments INR (test code = INR) 0.99 1 0.85-1.17 [facility]UuqkmpsVGOEXPQBIJ0154-48-06 04:08:00 Test Item Value Reference Range Interpretation Comments PTT (test code = PTT) 28.2 s 22.9-35.8 [facility] CenterKvtaynpUCHUPLCHBI1122-75-75 04:08:00 Test Item Value Reference Range Interpretation Comments RBC Morph (test code = Normal (12/05/19 11:08 RBC Morph) PM) [facility] CenterLugdgifDPHOHXFAYV0980-29-50 04:08:00 Test Item Value Reference Range Interpretation Comments Plt Morph (test code = Normal (12/05/19 11:08 Plt Morph) PM) [facility] [id number] 04:08:00 Test Item Value Reference Range Interpretation Comments S. aureus (test code = Not Detected (12/05/19 S. aureus) 11:08 PM) [facility] [id number] 04:08:00 Test Item Value Reference Range Interpretation Comments S. epidermidis (test Not Detected (12/05/19 code = S. epidermidis) 11:08 PM) [facility] [id number] 04:08:00 Test Item Value Reference Range Interpretation Comments S. lugdunensis (test Not Detected (12/05/19 code = S. lugdunensis) 11:08 PM) [facility] [id number] 04:08:00 Test Item Value Reference Range Interpretation Comments S. anginosus grp (test Not Detected (12/05/19 code = S. anginosus 11:08 PM) grp) [facility] [id number] 04:08:00 Test Item Value Reference Range Interpretation Comments S. agalactiae (test code Not Detected (12/05/19 = S. agalactiae) 11:08 PM) [facility] [id number] 04:08:00 Test Item Value Reference Range Interpretation Comments S. pneumoniae (test code Not Detected (12/05/19 = S. pneumoniae) 11:08 PM) [facility] [id number] 04:08:00 Test Item Value Reference Range Interpretation Comments S. pyogenes (test code Not Detected (12/05/19 = S. pyogenes) 11:08 PM) [facility] [id number] 04:08:00 Test Item Value Reference Range Interpretation Comments E. faecalis (test code Not Detected (12/05/19 = E. faecalis) 11:08 PM) [facility] [id number] 04:08:00 Test Item Value Reference Range Interpretation Comments E. faecium (test code Not Detected (12/05/19 = E. faecium) 11:08 PM) [facility] [id number] 04:08:00 Test Item Value Reference Range Interpretation Comments Staphylococcus spp. (test Not Detected code = Staphylococcus (12/05/19 11:08 PM) spp.) [facility] [id number] 04:08:00 Test Item Value Reference Range Interpretation Comments Streptococcus spp. (test Not Detected (12/05/19 code = Streptococcus 11:08 PM) spp.) [facility] [id number] 04:08:00 Test Item Value Reference Range Interpretation Comments Listeria spp. (test Not Detected (12/05/19 code = Listeria spp.) 11:08 PM) [facility] [id number] 04:08:00 Test Item Value Reference Range Interpretation Comments mecA Methicillin Not Detected (12/05/19 Resistance (test code = 11:08 PM) mecA Methicillin Resistance) [place] [id number] 04:08:00 Test Item Value Reference Range Interpretation Comments Andres Vancomycin Not Detected (12/05/19 Resistance (test code = 11:08 PM) Andres Vancomycin Resistance) [facility]2020-06-10 04:08:00 Test Item Value Reference Range Interpretation Comments vanB Vancomycin Not Detected (12/05/19 Resistance (test code = 11:08 PM) vanB Vancomycin Resistance) [facility]2020-06-10 04:08:00 Test Item Value Reference Range Interpretation Comments B/C Ratio (test code = B/C Ratio) 14 1 6-25 [facility]2020-06-10 04:08:00 Test Item Value Reference Range Interpretation Comments Total Protein (test code = Total 7.1 6.4-8.4 Protein) [facility]2020-06-10 04:08:00 Test Item Value Reference Range Interpretation Comments Albumin Lvl (test code = Albumin Lvl) 2.2 3.5-5.0 [facility]2020-06-10 04:08:00 Test Item Value Reference Range Interpretation Comments Globulin (test code = Globulin) 4.9 2.7-4.2 [facility]2020-06-10 04:08:00 Test Item Value Reference Range Interpretation Comments A/G Ratio (test code = A/G Ratio) 0.4 1 0.7-1.6 [facility]2020-06-10 04:08:00 Test Item Value Reference Range Interpretation Comments ALT (test code = ALT) 19 <=65 [place] [id number] 04:08:00 Test Item Value Reference Range Interpretation Comments AST (test code = AST) 17 <=37 [facility]2020-06-10 04:08:00 Test Item Value Reference Range Interpretation Comments Alk Phos (test code = Alk Phos) 167 39-136 [facility]2020-06-10 04:08:00 Test Item Value Reference Range Interpretation Comments Bili Total (test code = Bili Total) 0.7 0.2-1.3 [facility]2020-06-10 04:08:00 Test Item Value Reference Range Interpretation Comments Lactic Acid Lvl (test code = Lactic 2.5 0.5-2.2 Acid Lvl) [facility]2020-06-10 04:08:00 Test Item Value Reference Range Interpretation Comments Procalcitonin Lvl (test code = 1.27 <=0.10 Procalcitonin Lvl) [facility] [id number] 04:08:00 Test Item Value Reference Range Interpretation Comments PT (test code = PT) 13.1 s 12.0-14.7 [facility] CenterZebfkgrFOAMDPCAXP2156-92-97 04:08:00 Test Item Value Reference Range Interpretation Comments INR (test code = INR) 0.99 1 0.85-1.17 [facility] CenterBlrztiiYYWZYYRWLY5835-39-21 04:08:00 Test Item Value Reference Range Interpretation Comments PTT (test code = PTT) 28.2 s 22.9-35.8 [facility] CenterBxcsusoZLBDOVYUQB9234-39-81 04:08:00 Test Item Value Reference Range Interpretation Comments RBC Morph (test code = Normal (12/05/19 11:08 RBC Morph) PM) [facility] CenterRcnvslnQMRMHTOJLS1698-83-11 04:08:00 Test Item Value Reference Range Interpretation Comments Plt Morph (test code = Normal (12/05/19 11:08 Plt Morph) PM) [facility] [id number] 04:08:00 Test Item Value Reference Range Interpretation Comments S. aureus (test code = Not Detected (12/05/19 S. aureus) 11:08 PM) [facility] [id number] 04:08:00 Test Item Value Reference Range Interpretation Comments S. epidermidis (test Not Detected (12/05/19 code = S. epidermidis) 11:08 PM) [facility] [id number] 04:08:00 Test Item Value Reference Range Interpretation Comments S. lugdunensis (test Not Detected (12/05/19 code = S. lugdunensis) 11:08 PM) [facility] [id number] 04:08:00 Test Item Value Reference Range Interpretation Comments S. anginosus grp (test Not Detected (12/05/19 code = S. anginosus 11:08 PM) grp) [facility] [id number] 04:08:00 Test Item Value Reference Range Interpretation Comments S. agalactiae (test code Not Detected (12/05/19 = S. agalactiae) 11:08 PM) [facility] [id number] 04:08:00 Test Item Value Reference Range Interpretation Comments S. pneumoniae (test code Not Detected (12/05/19 = S. pneumoniae) 11:08 PM) [facility] [id number] 04:08:00 Test Item Value Reference Range Interpretation Comments S. pyogenes (test code Not Detected (12/05/19 = S. pyogenes) 11:08 PM) [facility] [id number] 04:08:00 Test Item Value Reference Range Interpretation Comments E. faecalis (test code Not Detected (12/05/19 = E. faecalis) 11:08 PM) [facility] [id number] 04:08:00 Test Item Value Reference Range Interpretation Comments E. faecium (test code Not Detected (12/05/19 = E. faecium) 11:08 PM) [facility] [id number] 04:08:00 Test Item Value Reference Range Interpretation Comments Staphylococcus spp. (test Not Detected code = Staphylococcus (12/05/19 11:08 PM) spp.) [facility] [id number] 04:08:00 Test Item Value Reference Range Interpretation Comments Streptococcus spp. (test Not Detected (12/05/19 code = Streptococcus 11:08 PM) spp.) [facility] [id number] 04:08:00 Test Item Value Reference Range Interpretation Comments Listeria spp. (test Not Detected (12/05/19 code = Listeria spp.) 11:08 PM) [facility]LE[facility] [id number] 04:08:00 Test Item Value Reference Range Interpretation Comments mecA Methicillin Not Detected (12/05/19 Resistance (test code = 11:08 PM) mecA Methicillin Resistance) [facility] [id number] 04:08:00 Test Item Value Reference Range Interpretation Comments Andres Vancomycin Not Detected (12/05/19 Resistance (test code = 11:08 PM) Andres Vancomycin Resistance) [facility] [id number] 04:08:00 Test Item Value Reference Range Interpretation Comments vanB Vancomycin Not Detected (12/05/19 Resistance (test code = 11:08 PM) vanB Vancomycin Resistance) [facility] [id number] 09:03:00 Test Item Value Reference Range Interpretation Comments Hgb A1C (test code = Hgb A1C) 13.3 [facility] [id number] 09:03:00 Test Item Value Reference Range Interpretation Comments Hgb A1C (test code = Hgb A1C) 13.3 [facility] [id number] 09:03:00 Test Item Value Reference Range Interpretation Comments Hgb A1C (test code = Hgb A1C) 13.3 [facility] [id number] 09:03:00 Test Item Value Reference Range Interpretation Comments Hgb A1C (test code = Hgb A1C) 13.3 [facility] [id number] 09:03:00 Test Item Value Reference Range Interpretation Comments Hgb A1C (test code = Hgb A1C) 13.3 [facility] [id number] 09:03:00 Test Item Value Reference Range Interpretation Comments Hgb A1C (test code = Hgb A1C) 13.3 [facility] [id number] 09:03:00 Test Item Value Reference Range Interpretation Comments Hgb A1C (test code = Hgb A1C) 13.3 [facility] [id number] 09:03:00 Test Item Value Reference Range Interpretation Comments Hgb A1C (test code = Hgb A1C) 13.3 [facility] [id number] 09:03:00 Test Item Value Reference Range Interpretation Comments Hgb A1C (test code = Hgb A1C) 13.3 [facility] [id number] 09:03:00 Test Item Value Reference Range Interpretation Comments Hgb A1C (test code = Hgb A1C) 13.3 [facility] [id number] 09:03:00 Test Item Value Reference Range Interpretation Comments Hgb A1C (test code = Hgb A1C) 13.3 [facility] [id number] 09:03:00 Test Item Value Reference Range Interpretation Comments Hgb A1C (test code = Hgb A1C) 13.3 [facility] [id number] 19:29:00 Test Item Value Reference Range Interpretation Comments Lactic Acid Lvl (test code = Lactic 1.2 0.5-2.2 Acid Lvl) [facility] [id number] 19:29:00 Test Item Value Reference Range Interpretation Comments Lactic Acid Lvl (test code = Lactic 1.2 0.5-2.2 Acid Lvl) [facility] [id number] 19:29:00 Test Item Value Reference Range Interpretation Comments Lactic Acid Lvl (test code = Lactic 1.2 0.5-2.2 Acid Lvl) [facility] [id number] 19:29:00 Test Item Value Reference Range Interpretation Comments Lactic Acid Lvl (test code = Lactic 1.2 0.5-2.2 Acid Lvl) [facility] [id number] 19:29:00 Test Item Value Reference Range Interpretation Comments Lactic Acid Lvl (test code = Lactic 1.2 0.5-2.2 Acid Lvl) [facility] [id number] 19:29:00 Test Item Value Reference Range Interpretation Comments Lactic Acid Lvl (test code = Lactic 1.2 0.5-2.2 Acid Lvl) [facility] [id number] 19:29:00 Test Item Value Reference Range Interpretation Comments Lactic Acid Lvl (test code = Lactic 1.2 0.5-2.2 Acid Lvl) [facility] [id number] 19:29:00 Test Item Value Reference Range Interpretation Comments Lactic Acid Lvl (test code = Lactic 1.2 0.5-2.2 Acid Lvl) [facility] [id number] 19:29:00 Test Item Value Reference Range Interpretation Comments Lactic Acid Lvl (test code = Lactic 1.2 0.5-2.2 Acid Lvl) [facility]2020-06-04 19:29:00 Test Item Value Reference Range Interpretation Comments Lactic Acid Lvl (test code = Lactic 1.2 0.5-2.2 Acid Lvl) [facility]2020-06-04 19:29:00 Test Item Value Reference Range Interpretation Comments Lactic Acid Lvl (test code = Lactic 1.2 0.5-2.2 Acid Lvl) [place] [id number] 19:29:00 Test Item Value Reference Range Interpretation Comments Lactic Acid Lvl (test code = Lactic 1.2 0.5-2.2 Acid Lvl) [facility]2020-06-04 15:46:00 Test Item Value Reference Range Interpretation Comments Glucose Lvl (test code = Glucose Lvl) 342 70-99 [facility]2020-06-04 15:46:00 Test Item Value Reference Range Interpretation Comments BUN (test code = BUN) 14 7-22 [place] [id number] 15:46:00 Test Item Value Reference Range Interpretation Comments Creatinine Lvl (test code = Creatinine 1.00 0.50-1.40 Lvl) [facility]2020-06-04 15:46:00 Test Item Value Reference Range Interpretation Comments Sodium Lvl (test code = Sodium Lvl) 135 135-145 [facility]2020-06-04 15:46:00 Test Item Value Reference Range Interpretation Comments Potassium Lvl (test code = Potassium 4.8 3.5-5.1 Lvl) [facility]2020-06-04 15:46:00 Test Item Value Reference Range Interpretation Comments Chloride Lvl (test code = Chloride Lvl) 101 95-109 [facility]2020-06-04 15:46:00 Test Item Value Reference Range Interpretation Comments CO2 (test code = CO2) 24 24-32 [facility]2020-06-04 15:46:00 Test Item Value Reference Range Interpretation Comments Calcium Lvl (test code = Calcium Lvl) 9.9 8.5-10.5 [place] [id number] 15:46:00 Test Item Value Reference Range Interpretation Comments Total Protein (test code = Total 7.3 6.4-8.4 Protein) [facility]2020-06-04 15:46:00 Test Item Value Reference Range Interpretation Comments Albumin Lvl (test code = Albumin Lvl) 2.9 3.5-5.0 [facility] [employer]2020-06-04 15:46:00 Test Item Value Reference Range Interpretation Comments ALT (test code = ALT) 26 See_Comment [Auto mated message] The system which ge nerated this result transmit bright reference range : <=65. The reference range was not used to interpr et this result as candice l/abnormal. [employer]2020-06-04 15:46:00 Test Item Value Reference Range Interpretation Comments AST (test code = AST) 17 See_Comment [Auto mated message] The system which ge nerated this result transmit bright reference range : <=37. The reference range was not used to interpr et this result as candice l/abnormal. [facility] [employer]2020-06-04 15:46:00 Test Item Value Reference Range Interpretation Comments Alk Phos (test code = Alk Phos) 120 39-136 [facility] [employer]2020-06-04 15:46:00 Test Item Value Reference Range Interpretation Comments Bili Total (test code = Bili Total) 0.5 0.2-1.3 [facility] [employer]2020-06-04 15:46:00 Test Item Value Reference Range Interpretation Comments AGAP (test code = AGAP) 14.8 10.0-20.0 [facility] [employer]2020-06-04 15:46:00 Test Item Value Reference Range Interpretation Comments B/C Ratio (test code = B/C Ratio) 14 1 6-25 [facility] [employer]2020-06-04 15:46:00 Test Item Value Reference Range Interpretation Comments Globulin (test code = Globulin) 4.4 2.7-4.2 [facility] [employer]0-06-04 15:46:00 Test Item Value Reference Range Interpretation Comments A/G Ratio (test code = A/G Ratio) 0.7 1 0.7-1.6 [facility] [employer]2020-06-04 15:46:00 Test Item Value Reference Range Interpretation Comments eGFR (test code = eGFR) 62 [facility] [employer]2020-06-04 15:46:00 Test Item Value Reference Range Interpretation Comments Lactic Acid Lvl (test code = Lactic 2.3 0.5-2.2 Acid Lvl) [facility] [id number] 15:46:00 Test Item Value Reference Range Interpretation Comments WBC (test code = WBC) 8.4 3.7-10.4 [facility] C[id number] 15:46:00 Test Item Value Reference Range Interpretation Comments RBC (test code = RBC) 4.74 4.20-5.40 [facility] CenterYgfomktFYVCLRPMEQ7993-14-54 15:46:00 Test Item Value Reference Range Interpretation Comments Hgb (test code = Hgb) 15.9 12.0-16.0 [facility] CenterUnbngyqFIWWJSCDDC7343-08-22 15:46:00 Test Item Value Reference Range Interpretation Comments Hct (test code = Hct) 45.6 36.0-48.0 [facility] CenterHqshalzSGLFSJDXHS8808-29-82 15:46:00 Test Item Value Reference Range Interpretation Comments MCV (test code = MCV) 96.3 80.0-98.0 [facility] CenterZjdfstbKHJPPGXOZV1662-87-22 15:46:00 Test Item Value Reference Range Interpretation Comments MCH (test code = MCH) 33.6 pg 27.0-31.0 [facility] CenterBhiugtjSNOCJCLHFX0447-87-93 15:46:00 Test Item Value Reference Range Interpretation Comments MCHC (test code = MCHC) 34.9 32.0-36.0 [facility] CenterPaffgqaISJTYKFTSS5403-55-81 15:46:00 Test Item Value Reference Range Interpretation Comments RDW (test code = RDW) 13.4 11.5-14.5 [facility] CenterFvjsjdcJZFQHVTMVW5944-39-87 15:46:00 Test Item Value Reference Range Interpretation Comments Platelet (test code = Platelet) 247 133-450 [facility] CenterJlngfadZQETRPUOXI5978-07-91 15:46:00 Test Item Value Reference Range Interpretation Comments MPV (test code = MPV) 9.3 7.4-10.4 [facility] CenterUwvjyvlRUMQLRREAZ7057-15-43 15:46:00 Test Item Value Reference Range Interpretation Comments Segs (test code = Segs) 83.0 45.0-75.0 [facility] CenterXoawljoXFMZUDPYFQ1298-54-83 15:46:00 Test Item Value Reference Range Interpretation Comments Lymphocytes (test code = Lymphocytes) 8.3 20.0-40.0 [place] [id number] 15:46:00 Test Item Value Reference Range Interpretation Comments Monocytes (test code = Monocytes) 8.4 2.0-12.0 [place] [id number] 15:46:00 Test Item Value Reference Range Interpretation Comments Basophils (test code = 0.3 See_Comment [Aut omated message] The Basophils) system which ge nerated this result tra nsmitted reference range : <=1.0. The reference r chase was not used to int erpret this result as normal/abnormal . [facility] CenterDimatpxGCMKZPQPBX4054-53-43 15:46:00 Test Item Value Reference Range Interpretation Comments Neutrophils # (test code = Neutrophils 7.0 1.5-8.1 #) [facility] CenterDvwrkqkMEERZVROTA0395-97-55 15:46:00 Test Item Value Reference Range Interpretation Comments Lymphocytes # (test code = Lymphocytes 0.7 1.0-5.5 #) [facility] CenterJggmajkAJLNVBESMG8213-14-24 15:46:00 Test Item Value Reference Range Interpretation Comments Monocytes # (test code 0.7 See_Comment [Aut omated message] The = Monocytes #) system which generated this result tra nsmitted reference range : <=0.8. The reference r chase was not used to int erpret this result as normal/abnormal . [facility] CenterAlt[facility] Education [id number] 15:46:00 Test Item Value Reference Range Interpretation Comments Glucose Lvl (test code = Glucose Lvl) 342 70-99 [facility]2020-06-04 15:46:00 Test Item Value Reference Range Interpretation Comments BUN (test code = BUN) 14 7-[address] Center[facility] [id number] 15:46:00 Test Item Value Reference Range Interpretation Comments Creatinine Lvl (test code = Creatinine 1.00 0.50-1.40 Lvl) [facility] Center[facility] [id number] 15:46:00 Test Item Value Reference Range Interpretation Comments Sodium Lvl (test code = Sodium Lvl) 135 135-145 [facility]2020-06-04 15:46:00 Test Item Value Reference Range Interpretation Comments Potassium Lvl (test code = Potassium 4.8 3.5-5.1 Lvl) [facility] Center[facility] [id number] 15:46:00 Test Item Value Reference Range Interpretation Comments Chloride Lvl (test code = Chloride Lvl) 101 95-109 [facility] [employer] [id number] 15:46:00 Test Item Value Reference Range Interpretation Comments CO2 (test code = CO2) 24 24-32 [facility] [id number] 15:46:00 Test Item Value Reference Range Interpretation Comments Calcium Lvl (test code = Calcium Lvl) 9.9 8.5-10.5 [facility] [id number] 15:46:00 Test Item Value Reference Range Interpretation Comments Total Protein (test code = Total 7.3 6.4-8.4 Protein) [facility] [id number] 15:46:00 Test Item Value Reference Range Interpretation Comments Albumin Lvl (test code = Albumin Lvl) 2.9 3.5-5.0 [facility] [employer] [id number] 15:46:00 Test Item Value Reference Range Interpretation Comments ALT (test code = ALT) 26 See_Comment [Auto mated message] The system which ge nerated this result transmit bright reference range : <=65. The reference range was not used to interpr et this result as candice l/abnormal. [facility] [employer] [id number] 15:46:00 Test Item Value Reference Range Interpretation Comments AST (test code = AST) 17 See_Comment [Auto mated message] The system which ge nerated this result transmit bright reference range : <=37. The reference range was not used to interpr et this result as candice l/abnormal. [facility] [employer] [id number] 15:46:00 Test Item Value Reference Range Interpretation Comments Alk Phos (test code = Alk Phos) 120 39-136 [facility] [employer] [id number] 15:46:00 Test Item Value Reference Range Interpretation Comments Bili Total (test code = Bili Total) 0.5 0.2-1.3 [facility] [employer] [id number] 15:46:00 Test Item Value Reference Range Interpretation Comments AGAP (test code = AGAP) 14.8 10.0-20.0 [facility] [employer] [id number] 15:46:00 Test Item Value Reference Range Interpretation Comments B/C Ratio (test code = B/C Ratio) 14 1 6-25 [place] 763680-06-04 15:46:00 Test Item Value Reference Range Interpretation Comments Globulin (test code = Globulin) 4.4 2.7-4.2 [place] 763680-06-04 15:46:00 Test Item Value Reference Range Interpretation Comments A/G Ratio (test code = A/G Ratio) 0.7 1 0.7-1.6 [place] [address]-06-04 15:46:00 Test Item Value Reference Range Interpretation Comments eGFR (test code = eGFR) 62 [facility]2020-06-04 15:46:00 Test Item Value Reference Range Interpretation Comments Lactic Acid Lvl (test code = Lactic 2.3 0.5-2.2 Acid Lvl) [place] 789280-06-04 15:46:00 Test Item Value Reference Range Interpretation Comments WBC (test code = WBC) 8.4 3.7-10.4 [place] 789280-06-04 15:46:00 Test Item Value Reference Range Interpretation Comments RBC (test code = RBC) 4.74 4.20-5.40 [place] [address]-06-04 15:46:00 Test Item Value Reference Range Interpretation Comments Hgb (test code = Hgb) 15.9 12.0-16.0 [place] [address]-06-04 15:46:00 Test Item Value Reference Range Interpretation Comments Hct (test code = Hct) 45.6 36.0-48.0 [place] [address]-06-04 15:46:00 Test Item Value Reference Range Interpretation Comments MCV (test code = MCV) 96.3 80.0-98.0 [place] [address]-06-04 15:46:00 Test Item Value Reference Range Interpretation Comments MCH (test code = MCH) 33.6 pg 27.0-31.0 [place] [address]-06-04 15:46:00 Test Item Value Reference Range Interpretation Comments MCHC (test code = MCHC) 34.9 32.0-36.0 [place] [address]-06-04 15:46:00 Test Item Value Reference Range Interpretation Comments RDW (test code = RDW) 13.4 11.5-14.5 [place] 789280-06-04 15:46:00 Test Item Value Reference Range Interpretation Comments Platelet (test code = Platelet) 247 133-450 [facility]ZyktxshGGCFKJVVCJ9748-00-85 15:46:00 Test Item Value Reference Range Interpretation Comments MPV (test code = MPV) 9.3 7.4-10.4 [place] [address]-06-04 15:46:00 Test Item Value Reference Range Interpretation Comments Segs (test code = Segs) 83.0 45.0-75.0 [place] [address]-06-04 15:46:00 Test Item Value Reference Range Interpretation Comments Lymphocytes (test code = Lymphocytes) 8.3 20.0-40.0 [place] [address]-06-04 15:46:00 Test Item Value Reference Range Interpretation Comments Monocytes (test code = Monocytes) 8.4 2.0-12.0 [place] [address]-06-04 15:46:00 Test Item Value Reference Range Interpretation Comments Basophils (test code = 0.3 See_Comment [Aut omated message] The Basophils) system which ge nerated this result tra nsmitted reference range : <=1.0. The reference r chase was not used to int erpret this result as normal/abnormal . [facility] CenterNmzzyufMXOZQLQNVJ5678-19-70 15:46:00 Test Item Value Reference Range Interpretation Comments Neutrophils # (test code = Neutrophils 7.0 1.5-8.1 #) [facility] CenterXphjqvfYWMWRVBYRL4035-79-10 15:46:00 Test Item Value Reference Range Interpretation Comments Lymphocytes # (test code = Lymphocytes 0.7 1.0-5.5 #) [place] [address]-06-04 15:46:00 Test Item Value Reference Range Interpretation Comments Monocytes # (test code 0.7 See_Comment [Aut omated message] The = Monocytes #) system which generated this result tra nsmitted reference range : <=0.8. The reference r chase was not used to int erpret this result as normal/abnormal . [facility]2020-06-04 15:46:00 Test Item Value Reference Range Interpretation Comments Glucose Lvl (test code = Glucose Lvl) 342 70-99 [facility]2020-06-04 15:46:00 Test Item Value Reference Range Interpretation Comments BUN (test code = BUN) 14 7-22 [facility]2020-06-04 15:46:00 Test Item Value Reference Range Interpretation Comments Creatinine Lvl (test code = Creatinine 1.00 0.50-1.40 Lvl) [facility]2020-06-04 15:46:00 Test Item Value Reference Range Interpretation Comments Sodium Lvl (test code = Sodium Lvl) 135 135-145 [place] 763680-06-04 15:46:00 Test Item Value Reference Range Interpretation Comments Potassium Lvl (test code = Potassium 4.8 3.5-5.1 Lvl) [facility]2020-06-04 15:46:00 Test Item Value Reference Range Interpretation Comments Chloride Lvl (test code = Chloride Lvl) 101 95-109 [place] 763680-06-04 15:46:00 Test Item Value Reference Range Interpretation Comments CO2 (test code = CO2) 24 24-32 [place] 763680-06-04 15:46:00 Test Item Value Reference Range Interpretation Comments Calcium Lvl (test code = Calcium Lvl) 9.9 8.5-10.5 [place] 763680-06-04 15:46:00 Test Item Value Reference Range Interpretation Comments Total Protein (test code = Total 7.3 6.4-8.4 Protein) [place] 763680-06-04 15:46:00 Test Item Value Reference Range Interpretation Comments Albumin Lvl (test code = Albumin Lvl) 2.9 3.5-5.0 [place] 763680-06-04 15:46:00 Test Item Value Reference Range Interpretation Comments ALT (test code = ALT) 26 See_Comment [Auto mated message] The system which ge nerated this result transmit bright reference range : <=65. The reference range was not used to interpr et this result as candice l/abnormal. [facility] Center[facility] [id number] 15:46:00 Test Item Value Reference Range Interpretation Comments AST (test code = AST) 17 See_Comment [Auto mated message] The system which ge nerated this result transmit bright reference range : <=37. The reference range was not used to interpr et this result as candice l/abnormal. [facility] [id number] 15:46:00 Test Item Value Reference Range Interpretation Comments Alk Phos (test code = Alk Phos) 120 39-136 [facility]2020-06-04 15:46:00 Test Item Value Reference Range Interpretation Comments Bili Total (test code = Bili Total) 0.5 0.2-1.3 [facility]2020-06-04 15:46:00 Test Item Value Reference Range Interpretation Comments AGAP (test code = AGAP) 14.8 10.0-20.0 [facility]2020-06-04 15:46:00 Test Item Value Reference Range Interpretation Comments B/C Ratio (test code = B/C Ratio) 14 1 6-25 [place] 763680-06-04 15:46:00 Test Item Value Reference Range Interpretation Comments Globulin (test code = Globulin) 4.4 2.7-4.2 [facility]2020-06-04 15:46:00 Test Item Value Reference Range Interpretation Comments A/G Ratio (test code = A/G Ratio) 0.7 1 0.7-1.6 [facility]2020-06-04 15:46:00 Test Item Value Reference Range Interpretation Comments eGFR (test code = eGFR) 62 [facility]2020-06-04 15:46:00 Test Item Value Reference Range Interpretation Comments Lactic Acid Lvl (test code = Lactic 2.3 0.5-2.2 Acid Lvl) [facility] CenterTpwwbzsBWRWMBNISQ6833-36-50 15:46:00 Test Item Value Reference Range Interpretation Comments WBC (test code = WBC) 8.4 3.7-10.4 [facility] CenterTopwdpzUPDOVZEWIW5159-49-54 15:46:00 Test Item Value Reference Range Interpretation Comments RBC (test code = RBC) 4.74 4.20-5.40 [place] [address]-06-04 15:46:00 Test Item Value Reference Range Interpretation Comments Hgb (test code = Hgb) 15.9 12.0-16.0 [place] [address]-06-04 15:46:00 Test Item Value Reference Range Interpretation Comments Hct (test code = Hct) 45.6 36.0-48.0 [place] [address]-06-04 15:46:00 Test Item Value Reference Range Interpretation Comments MCV (test code = MCV) 96.3 80.0-98.0 [facility] CenterLcwjjmlQJESXQRZXC5397-55-74 15:46:00 Test Item Value Reference Range Interpretation Comments MCH (test code = MCH) 33.6 pg 27.0-31.0 [facility] CenterWgoeranLDKVUHJFUE3045-80-70 15:46:00 Test Item Value Reference Range Interpretation Comments MCHC (test code = MCHC) 34.9 32.0-36.0 [place] 789280-06-04 15:46:00 Test Item Value Reference Range Interpretation Comments RDW (test code = RDW) 13.4 11.5-14.5 [facility] CenterIuwcetcCLWOSXXTVE3304-54-58 15:46:00 Test Item Value Reference Range Interpretation Comments Platelet (test code = Platelet) 247 133-450 [facility] CenterMfilytgDZOUEVBDLQ3398-22-23 15:46:00 Test Item Value Reference Range Interpretation Comments MPV (test code = MPV) 9.3 7.4-10.4 [facility] CenterRruybjoXUHCQXDHVD5662-69-01 15:46:00 Test Item Value Reference Range Interpretation Comments Segs (test code = Segs) 83.0 45.0-75.0 [facility] CenterVvmrqbjHOCCSQYXFJ8974-00-82 15:46:00 Test Item Value Reference Range Interpretation Comments Lymphocytes (test code = Lymphocytes) 8.3 20.0-40.0 [place] [address]-06-04 15:46:00 Test Item Value Reference Range Interpretation Comments Monocytes (test code = Monocytes) 8.4 2.0-12.0 [place] [address]-06-04 15:46:00 Test Item Value Reference Range Interpretation Comments Basophils (test code = 0.3 See_Comment [Aut omated message] The Basophils) system which ge nerated this result tra nsmitted reference range : <=1.0. The reference r chase was not used to int erpret this result as normal/abnormal . [facility] CenterUovhoqxBYRGDWGHIM8614-05-72 15:46:00 Test Item Value Reference Range Interpretation Comments Neutrophils # (test code = Neutrophils 7.0 1.5-8.1 #) [facility] CenterTywuudcHQIQYHYBVP2986-29-53 15:46:00 Test Item Value Reference Range Interpretation Comments Lymphocytes # (test code = Lymphocytes 0.7 1.0-5.5 #) [facility] 15:46:00 Test Item Value Reference Range Interpretation Comments Monocytes # (test code 0.7 See_Comment [Aut omated message] The = Monocytes #) system which generated this result tra nsmitted reference range : <=0.8. The reference r chase was not used to int erpret this result as normal/abnormal . [facility] CenterAlt[facility] Education [id number] 15:46:00 Test Item Value Reference Range Interpretation Comments Glucose Lvl (test code = Glucose Lvl) 342 70-99 [facility]2020-06-04 15:46:00 Test Item Value Reference Range Interpretation Comments BUN (test code = BUN) 14 7-22 [facility]2020-06-04 15:46:00 Test Item Value Reference Range Interpretation Comments Creatinine Lvl (test code = Creatinine 1.00 0.50-1.40 Lvl) [facility]2020-06-04 15:46:00 Test Item Value Reference Range Interpretation Comments Sodium Lvl (test code = Sodium Lvl) 135 135-145 [facility]2020-06-04 15:46:00 Test Item Value Reference Range Interpretation Comments Potassium Lvl (test code = Potassium 4.8 3.5-5.1 Lvl) [facility] AmericaWyzAnt.comECU HEALTH CHOWAN HOSPITALWUWEC3873-79-21 15:46:00 Test Item Value Reference Range Interpretation Comments Chloride Lvl (test code = Chloride Lvl) 101 95-109 [facility]2020-06-04 15:46:00 Test Item Value Reference Range Interpretation Comments CO2 (test code = CO2) 24 24-32 [facility]2020-06-04 15:46:00 Test Item Value Reference Range Interpretation Comments Calcium Lvl (test code = Calcium Lvl) 9.9 8.5-10.5 [facility]2020-06-04 15:46:00 Test Item Value Reference Range Interpretation Comments Total Protein (test code = Total 7.3 6.4-8.4 Protein) [facility]2020-06-04 15:46:00 Test Item Value Reference Range Interpretation Comments Albumin Lvl (test code = Albumin Lvl) 2.9 3.5-5.0 [place] 763680-06-04 15:46:00 Test Item Value Reference Range Interpretation Comments ALT (test code = ALT) 26 See_Comment [Auto mated message] The system which ge nerated this result transmit bright reference range : <=65. The reference range was not used to interpr et this result as candice l/abnormal. [facility] [id number] 15:46:00 Test Item Value Reference Range Interpretation Comments AST (test code = AST) 17 See_Comment [Auto mated message] The system which ge nerated this result transmit bright reference range : <=37. The reference range was not used to interpr et this result as candice l/abnormal. [facility] [id number] 15:46:00 Test Item Value Reference Range Interpretation Comments Alk Phos (test code = Alk Phos) 120 39-136 [facility] [id number] 15:46:00 Test Item Value Reference Range Interpretation Comments Bili Total (test code = Bili Total) 0.5 0.2-1.[address] [facility] CenterAlt[facility] Education [id number] 15:46:00 Test Item Value Reference Range Interpretation Comments AGAP (test code = AGAP) 14.8 10.0-20.0 [facility] [id number] 15:46:00 Test Item Value Reference Range Interpretation Comments B/C Ratio (test code = B/C Ratio) 14 1 6-[address] [facility] CenterAlt[facility] [id number] 15:46:00 Test Item Value Reference Range Interpretation Comments Globulin (test code = Globulin) 4.4 2.7-4.2 [facility] [id number] 15:46:00 Test Item Value Reference Range Interpretation Comments A/G Ratio (test code = A/G Ratio) 0.7 1 0.7-1.6 [facility] [id number] 15:46:00 Test Item Value Reference Range Interpretation Comments eGFR (test code = eGFR) 62 [facility] [id number] 15:46:00 Test Item Value Reference Range Interpretation Comments Lactic Acid Lvl (test code = Lactic 2.3 0.5-2.2 Acid Lvl) [facility] CenterVmrbejiCBDESUUQGH2148-56-48 15:46:00 Test Item Value Reference Range Interpretation Comments WBC (test code = WBC) 8.4 3.7-10.4 [facility] CenterEzwblbqAZOXEZCGFO4638-71-84 15:46:00 Test Item Value Reference Range Interpretation Comments RBC (test code = RBC) 4.74 4.20-5.40 [facility] CenterUqiujbiNKQWKTTECB9672-75-29 15:46:00 Test Item Value Reference Range Interpretation Comments Hgb (test code = Hgb) 15.9 12.0-16.0 [facility] CenterRiisvzuBEEKECJBAT8308-28-89 15:46:00 Test Item Value Reference Range Interpretation Comments Hct (test code = Hct) 45.6 36.0-48.0 [facility] CenterUwconzpBTXAVXIKCV0933-85-47 15:46:00 Test Item Value Reference Range Interpretation Comments MCV (test code = MCV) 96.3 80.0-98.0 [facility] CenterSitmbonVXMDKESXQH3345-53-77 15:46:00 Test Item Value Reference Range Interpretation Comments MCH (test code = MCH) 33.6 pg 27.0-31.0 [facility] CenterObhnyodHUGSENJCTK7333-01-70 15:46:00 Test Item Value Reference Range Interpretation Comments MCHC (test code = MCHC) 34.9 32.0-36.0 [facility] CenterVzjsmaeBATQTSGFUV3521-36-96 15:46:00 Test Item Value Reference Range Interpretation Comments RDW (test code = RDW) 13.4 11.5-14.5 [facility] CenterNggngrcCUBXEEPTQX4741-04-35 15:46:00 Test Item Value Reference Range Interpretation Comments Platelet (test code = Platelet) 247 133-450 [facility] CenterZdpijbbLAUUQKLHOG2122-65-41 15:46:00 Test Item Value Reference Range Interpretation Comments MPV (test code = MPV) 9.3 7.4-10.4 [facility] CenterBjgzrqvNUTROCGLDJ0519-59-96 15:46:00 Test Item Value Reference Range Interpretation Comments Segs (test code = Segs) 83.0 45.0-75.0 [place] [address]-06-04 15:46:00 Test Item Value Reference Range Interpretation Comments Lymphocytes (test code = Lymphocytes) 8.3 20.0-40.0 [place] [address]-06-04 15:46:00 Test Item Value Reference Range Interpretation Comments Monocytes (test code = Monocytes) 8.4 2.0-12.0 [facility] CenterJgepbttLZQHEWZXDM6404-80-23 15:46:00 Test Item Value Reference Range Interpretation Comments Basophils (test code = 0.3 See_Comment [Aut omated message] The Basophils) system which ge nerated this result tra nsmitted reference range : <=1.0. The reference r chase was not used to int erpret this result as normal/abnormal . [facility] CenterOgsapfxFIGUDHEEQM0101-50-25 15:46:00 Test Item Value Reference Range Interpretation Comments Neutrophils # (test code = Neutrophils 7.0 1.5-8.1 #) [facility] CenterYywcfhhEVWDIULRKC9975-36-58 15:46:00 Test Item Value Reference Range Interpretation Comments Lymphocytes # (test code = Lymphocytes 0.7 1.0-5.5 #) [facility] CenterGcjtxceZUMVXPVHNU9538-37-09 15:46:00 Test Item Value Reference Range Interpretation Comments Monocytes # (test code 0.7 See_Comment [Aut omated message] The = Monocytes #) system which generated this result tra nsmitted reference range : <=0.8. The reference r chase was not used to int erpret this result as normal/abnormal . [facility] CenterAlt[facility] [id number] 15:46:00 Test Item Value Reference Range Interpretation Comments Glucose Lvl (test code = Glucose Lvl) 342 70-[address] [facility] CenterAlt[facility] [id number] 15:46:00 Test Item Value Reference Range Interpretation Comments BUN (test code = BUN) 14 7-[address] [facility] [facility] CenterAlt[facility] [id number] 15:46:00 Test Item Value Reference Range Interpretation Comments Creatinine Lvl (test code = Creatinine 1.00 0.50-1.40 Lvl) [place] 763680-06-04 15:46:00 Test Item Value Reference Range Interpretation Comments Sodium Lvl (test code = Sodium Lvl) 135 135-145 [facility] [id number] 15:46:00 Test Item Value Reference Range Interpretation Comments Potassium Lvl (test code = Potassium 4.8 3.5-5.1 Lvl) [facility]2020-06-04 15:46:00 Test Item Value Reference Range Interpretation Comments Chloride Lvl (test code = Chloride Lvl) 101 95-109 [facility] [id number] 15:46:00 Test Item Value Reference Range Interpretation Comments CO2 (test code = CO2) 24 24-32 [facility] [employer] [id number] 15:46:00 Test Item Value Reference Range Interpretation Comments Calcium Lvl (test code = Calcium Lvl) 9.9 8.5-10.5 [facility] [employer] [id number] 15:46:00 Test Item Value Reference Range Interpretation Comments Total Protein (test code = Total 7.3 6.4-8.4 Protein) [facility] [employer] [id number] 15:46:00 Test Item Value Reference Range Interpretation Comments Albumin Lvl (test code = Albumin Lvl) 2.9 3.5-5.0 [facility] [employer] [id number] 15:46:00 Test Item Value Reference Range Interpretation Comments ALT (test code = ALT) 26 See_Comment [Auto mated message] The system which ge nerated this result transmit bright reference range : <=65. The reference range was not used to interpr et this result as candice l/abnormal. [facility] [employer] [id number] 15:46:00 Test Item Value Reference Range Interpretation Comments AST (test code = AST) 17 See_Comment [Auto mated message] The system which ge nerated this result transmit bright reference range : <=37. The reference range was not used to interpr et this result as candice l/abnormal. [facility] [employer] [id number] 15:46:00 Test Item Value Reference Range Interpretation Comments Alk Phos (test code = Alk Phos) 120 39-136 [facility] [employer] [id number] 15:46:00 Test Item Value Reference Range Interpretation Comments Bili Total (test code = Bili Total) 0.5 0.2-1.3 [facility] [employer] [id number] 15:46:00 Test Item Value Reference Range Interpretation Comments AGAP (test code = AGAP) 14.8 10.0-20.0 [facility] [employer] [id number] 15:46:00 Test Item Value Reference Range Interpretation Comments B/C Ratio (test code = B/C Ratio) 14 1 6-25 [facility] [employer] [id number] 15:46:00 Test Item Value Reference Range Interpretation Comments Globulin (test code = Globulin) 4.4 2.7-4.2 [facility] [employer] [id number] 15:46:00 Test Item Value Reference Range Interpretation Comments A/G Ratio (test code = A/G Ratio) 0.7 1 0.7-1.6 [facility]2020-06-04 15:46:00 Test Item Value Reference Range Interpretation Comments eGFR (test code = eGFR) 62 [facility]2020-06-04 15:46:00 Test Item Value Reference Range Interpretation Comments Lactic Acid Lvl (test code = Lactic 2.3 0.5-2.2 Acid Lvl) [facility] CenterOboevloWLOEWTANGD6562-48-31 15:46:00 Test Item Value Reference Range Interpretation Comments WBC (test code = WBC) 8.4 3.7-10.4 [facility] CenterFenkhqpSLJGWQXLVK9735-10-22 15:46:00 Test Item Value Reference Range Interpretation Comments RBC (test code = RBC) 4.74 4.20-5.40 [facility] CenterCamkcqhRYEPZAJBNJ5958-94-42 15:46:00 Test Item Value Reference Range Interpretation Comments Hgb (test code = Hgb) 15.9 12.0-16.0 [facility] CenterOevuizoPYMDFCROUB7519-40-22 15:46:00 Test Item Value Reference Range Interpretation Comments Hct (test code = Hct) 45.6 36.0-48.0 [facility] CenterHkfpcytKICEYONRXD7552-71-51 15:46:00 Test Item Value Reference Range Interpretation Comments MCV (test code = MCV) 96.3 80.0-98.0 [facility] CenterPovhblaKOUDTHPITD2164-55-21 15:46:00 Test Item Value Reference Range Interpretation Comments MCH (test code = MCH) 33.6 pg 27.0-31.0 [facility] CenterPcylvodNYJUZLMTUB8617-07-76 15:46:00 Test Item Value Reference Range Interpretation Comments MCHC (test code = MCHC) 34.9 32.0-36.0 [facility] CenterUcisrjcGMLEPQAERA4194-50-87 15:46:00 Test Item Value Reference Range Interpretation Comments RDW (test code = RDW) 13.4 11.5-14.5 [facility] CenterOihpokcXKJVKBVQGD9256-19-66 15:46:00 Test Item Value Reference Range Interpretation Comments Platelet (test code = Platelet) 247 133-450 [facility] CenterHabfotwPSUQFBLMER4748-61-87 15:46:00 Test Item Value Reference Range Interpretation Comments MPV (test code = MPV) 9.3 7.4-10.4 [facility] CenterDrmscpjRGZWBEMUNZ1189-19-07 15:46:00 Test Item Value Reference Range Interpretation Comments Segs (test code = Segs) 83.0 45.0-75.0 [facility] CenterXovmmbeYBVZEOXNVT0459-37-94 15:46:00 Test Item Value Reference Range Interpretation Comments Lymphocytes (test code = Lymphocytes) 8.3 20.0-40.0 [place] 789280-06-04 15:46:00 Test Item Value Reference Range Interpretation Comments Monocytes (test code = Monocytes) 8.4 2.0-12.0 [facility] CenterGblechqRQNAXRUESR9137-20-29 15:46:00 Test Item Value Reference Range Interpretation Comments Basophils (test code = 0.3 See_Comment [Aut omated message] The Basophils) system which ge nerated this result tra nsmitted reference range : <=1.0. The reference r chase was not used to int erpret this result as normal/abnormal . [facility] CenterBwdiomxFOIHWZMPUP3029-99-19 15:46:00 Test Item Value Reference Range Interpretation Comments Neutrophils # (test code = Neutrophils 7.0 1.5-8.1 #) [facility] CenterNufmpwzSYRUQVVUTF9840-54-89 15:46:00 Test Item Value Reference Range Interpretation Comments Lymphocytes # (test code = Lymphocytes 0.7 1.0-5.5 #) [facility] CenterTaqyjbrIIZRAMQDBK5069-20-66 15:46:00 Test Item Value Reference Range Interpretation Comments Monocytes # (test code 0.7 See_Comment [Aut omated message] The = Monocytes #) system which generated this result tra nsmitted reference range : <=0.8. The reference r chase was not used to int erpret this result as normal/abnormal . [facility] [id number] 15:46:00 Test Item Value Reference Range Interpretation Comments Glucose Lvl (test code = Glucose Lvl) 342 70-[address] [facility] [id number] 15:46:00 Test Item Value Reference Range Interpretation Comments BUN (test code = BUN) 14 7-[address] [facility] [id number] 15:46:00 Test Item Value Reference Range Interpretation Comments Creatinine Lvl (test code = Creatinine 1.00 0.50-1.40 Lvl) [facility] CenterASH[place] [id number] 15:46:00 Test Item Value Reference Range Interpretation Comments Sodium Lvl (test code = Sodium Lvl) 135 135-145 [place] 763680-06-04 15:46:00 Test Item Value Reference Range Interpretation Comments Potassium Lvl (test code = Potassium 4.8 3.5-5.1 Lvl) [place] 763680-06-04 15:46:00 Test Item Value Reference Range Interpretation Comments Chloride Lvl (test code = Chloride Lvl) 101 95-109 [facility] [id number] 15:46:00 Test Item Value Reference Range Interpretation Comments CO2 (test code = CO2) 24 24-32 [facility] [id number] 15:46:00 Test Item Value Reference Range Interpretation Comments Calcium Lvl (test code = Calcium Lvl) 9.9 8.5-10.5 [facility] AmericaWyzAnt.comSAVANNAH [place] [id number] 15:46:00 Test Item Value Reference Range Interpretation Comments Total Protein (test code = Total 7.3 6.4-8.4 Protein) [facility]2020-06-04 15:46:00 Test Item Value Reference Range Interpretation Comments Albumin Lvl (test code = Albumin Lvl) 2.9 3.5-5.0 [facility] [id number] 15:46:00 Test Item Value Reference Range Interpretation Comments ALT (test code = ALT) 26 See_Comment [Auto mated message] The system which ge nerated this result transmit bright reference range : <=65. The reference range was not used to interpr et this result as candice l/abnormal. [facility] [id number] 15:46:00 Test Item Value Reference Range Interpretation Comments AST (test code = AST) 17 See_Comment [Auto mated message] The system which ge nerated this result transmit bright reference range : <=37. The reference range was not used to interpr et this result as candice l/abnormal. [facility] [id number] 15:46:00 Test Item Value Reference Range Interpretation Comments Alk Phos (test code = Alk Phos) 120 39-136 [facility] [id number] 15:46:00 Test Item Value Reference Range Interpretation Comments Bili Total (test code = Bili Total) 0.5 0.2-1.3 [facility]2020-06-04 15:46:00 Test Item Value Reference Range Interpretation Comments AGAP (test code = AGAP) 14.8 10.0-20.0 [place] [address]-06-04 15:46:00 Test Item Value Reference Range Interpretation Comments B/C Ratio (test code = B/C Ratio) 14 1 6-25 [place] [address]-06-04 15:46:00 Test Item Value Reference Range Interpretation Comments Globulin (test code = Globulin) 4.4 2.7-4.2 [place] [address]-06-04 15:46:00 Test Item Value Reference Range Interpretation Comments A/G Ratio (test code = A/G Ratio) 0.7 1 0.7-1.6 [place] [address]-06-04 15:46:00 Test Item Value Reference Range Interpretation Comments eGFR (test code = eGFR) 62 [facility]2020-06-04 15:46:00 Test Item Value Reference Range Interpretation Comments Lactic Acid Lvl (test code = Lactic 2.3 0.5-2.2 Acid Lvl) [facility] [id number] 15:46:00 Test Item Value Reference Range Interpretation Comments WBC (test code = WBC) 8.4 3.7-10.4 [place] [address]-06-04 15:46:00 Test Item Value Reference Range Interpretation Comments RBC (test code = RBC) 4.74 4.20-5.40 [place] [address]-06-04 15:46:00 Test Item Value Reference Range Interpretation Comments Hgb (test code = Hgb) 15.9 12.0-16.0 [place] [address]-06-04 15:46:00 Test Item Value Reference Range Interpretation Comments Hct (test code = Hct) 45.6 36.0-48.0 [place] [address]-06-04 15:46:00 Test Item Value Reference Range Interpretation Comments MCV (test code = MCV) 96.3 80.0-98.0 [place] [address]-06-04 15:46:00 Test Item Value Reference Range Interpretation Comments MCH (test code = MCH) 33.6 pg 27.0-31.0 [facility] CenterAfqkwkpAXNWJTSOMJ2146-74-65 15:46:00 Test Item Value Reference Range Interpretation Comments MCHC (test code = MCHC) 34.9 32.0-36.0 [facility] CenterRmvmlrxXOLSFEPNTY9394-07-61 15:46:00 Test Item Value Reference Range Interpretation Comments RDW (test code = RDW) 13.4 11.5-14.5 [facility] CenterYcueubvBIMFRWGSTL0364-10-35 15:46:00 Test Item Value Reference Range Interpretation Comments Platelet (test code = Platelet) 247 133-450 [facility] CenterYxxndyqESNICOMKOK1857-97-29 15:46:00 Test Item Value Reference Range Interpretation Comments MPV (test code = MPV) 9.3 7.4-10.4 [facility] CenterXwzmtdqBJPAGJUSDZ1452-73-57 15:46:00 Test Item Value Reference Range Interpretation Comments Segs (test code = Segs) 83.0 45.0-75.0 [facility] CenterIlihxluZEEONGKSHT7026-35-23 15:46:00 Test Item Value Reference Range Interpretation Comments Lymphocytes (test code = Lymphocytes) 8.3 20.0-40.0 [facility] CenterFzgjkqbRWMJYCDYDX2661-72-90 15:46:00 Test Item Value Reference Range Interpretation Comments Monocytes (test code = Monocytes) 8.4 2.0-12.0 [facility] CenterBrnupkaIRWRLPCIVT9173-44-19 15:46:00 Test Item Value Reference Range Interpretation Comments Basophils (test code = 0.3 See_Comment [Aut omated message] The Basophils) system which ge nerated this result tra nsmitted reference range : <=1.0. The reference r chase was not used to int erpret this result as normal/abnormal . [facility] CenterYhxohasCGYENZFNXE0835-18-51 15:46:00 Test Item Value Reference Range Interpretation Comments Neutrophils # (test code = Neutrophils 7.0 1.5-8.1 #) [facility] CenterMfyfawkQIPSSTZTTY3222-34-86 15:46:00 Test Item Value Reference Range Interpretation Comments Lymphocytes # (test code = Lymphocytes 0.7 1.0-5.5 #) [facility] CenterGltcnnfIIVGPXUTFX6190-59-77 15:46:00 Test Item Value Reference Range Interpretation Comments Monocytes # (test code 0.7 See_Comment [Aut omated message] The = Monocytes #) system which generated this result tra nsmitted reference range : <=0.8. The reference r chase was not used to int erpret this result as normal/abnormal . [facility] [id number] 15:46:00 Test Item Value Reference Range Interpretation Comments Glucose Lvl (test code = Glucose Lvl) 342 70-99 [place] [address]-06-04 15:46:00 Test Item Value Reference Range Interpretation Comments BUN (test code = BUN) 14 7-22 [facility] [id number] 15:46:00 Test Item Value Reference Range Interpretation Comments Creatinine Lvl (test code = Creatinine 1.00 0.50-1.40 Lvl) [facility] [id number] 15:46:00 Test Item Value Reference Range Interpretation Comments Sodium Lvl (test code = Sodium Lvl) 135 135-145 [facility] [id number] 15:46:00 Test Item Value Reference Range Interpretation Comments Potassium Lvl (test code = Potassium 4.8 3.5-5.1 Lvl) [facility] [id number] 15:46:00 Test Item Value Reference Range Interpretation Comments Chloride Lvl (test code = Chloride Lvl) 101 95-109 [facility] [id number] 15:46:00 Test Item Value Reference Range Interpretation Comments CO2 (test code = CO2) 24 24-32 [facility] [id number] 15:46:00 Test Item Value Reference Range Interpretation Comments Calcium Lvl (test code = Calcium Lvl) 9.9 8.5-10.5 [facility] [id number] 15:46:00 Test Item Value Reference Range Interpretation Comments Total Protein (test code = Total 7.3 6.4-8.4 Protein) [facility] [id number] 15:46:00 Test Item Value Reference Range Interpretation Comments Albumin Lvl (test code = Albumin Lvl) 2.9 3.5-5.0 [facility] [id number] 15:46:00 Test Item Value Reference Range Interpretation Comments ALT (test code = ALT) 26 See_Comment [Auto mated message] The system which ge nerated this result transmit bright reference range : <=65. The reference range was not used to interpr et this result as candice l/abnormal. [facility] [id number] 15:46:00 Test Item Value Reference Range Interpretation Comments AST (test code = AST) 17 See_Comment [Auto mated message] The system which ge nerated this result transmit bright reference range : <=37. The reference range was not used to interpr et this result as candice l/abnormal. [facility] [id number] 15:46:00 Test Item Value Reference Range Interpretation Comments Alk Phos (test code = Alk Phos) 120 39-136 [facility] [id number] 15:46:00 Test Item Value Reference Range Interpretation Comments Bili Total (test code = Bili Total) 0.5 0.2-1.3 [place] 763680-06-04 15:46:00 Test Item Value Reference Range Interpretation Comments AGAP (test code = AGAP) 14.8 10.0-20.[address] [facility] [id number] 15:46:00 Test Item Value Reference Range Interpretation Comments B/C Ratio (test code = B/C Ratio) 14 1 6-[address] [facility] [id number] 15:46:00 Test Item Value Reference Range Interpretation Comments Globulin (test code = Globulin) 4.4 2.7-4.[address] [facility] [id number] 15:46:00 Test Item Value Reference Range Interpretation Comments A/G Ratio (test code = A/G Ratio) 0.7 1 0.7-1.[address] [facility] [id number] 15:46:00 Test Item Value Reference Range Interpretation Comments eGFR (test code = eGFR) 62 [facility] [id number] 15:46:00 Test Item Value Reference Range Interpretation Comments Lactic Acid Lvl (test code = Lactic 2.3 0.5-2.2 Acid Lvl) [facility] CenterMjrpbthDBWESUOHNC3703-72-68 15:46:00 Test Item Value Reference Range Interpretation Comments WBC (test code = WBC) 8.4 3.7-10.[address] [facility] CenterZjutaqmEHPJZDKQUV7626-03-90 15:46:00 Test Item Value Reference Range Interpretation Comments RBC (test code = RBC) 4.74 4.20-5.40 [place] 789280-06-04 15:46:00 Test Item Value Reference Range Interpretation Comments Hgb (test code = Hgb) 15.9 12.0-16.0 [place] [address]-06-04 15:46:00 Test Item Value Reference Range Interpretation Comments Hct (test code = Hct) 45.6 36.0-48.0 [facility] CenterEwgcmldWQGKIFYBXO8676-39-95 15:46:00 Test Item Value Reference Range Interpretation Comments MCV (test code = MCV) 96.3 80.0-98.0 [facility] CenterZlwxotfANOIUTVAQZ8450-61-26 15:46:00 Test Item Value Reference Range Interpretation Comments MCH (test code = MCH) 33.6 pg 27.0-31.0 [facility] CenterZyjsebkUNEMGFMPNU2982-00-38 15:46:00 Test Item Value Reference Range Interpretation Comments MCHC (test code = MCHC) 34.9 32.0-36.0 [facility] CenterHroepfwEIAGJMSNEO8821-99-22 15:46:00 Test Item Value Reference Range Interpretation Comments RDW (test code = RDW) 13.4 11.5-14.5 [facility] CenterPwndczoUCSIZJIQOK4775-01-58 15:46:00 Test Item Value Reference Range Interpretation Comments Platelet (test code = Platelet) 247 133-450 [facility] CenterYhdxlaxSJFXVFDDSS1464-88-28 15:46:00 Test Item Value Reference Range Interpretation Comments MPV (test code = MPV) 9.3 7.4-10.4 [place] 789280-06-04 15:46:00 Test Item Value Reference Range Interpretation Comments Segs (test code = Segs) 83.0 45.0-75.0 [facility] CenterNnukystHMSVZRHKRA6430-70-36 15:46:00 Test Item Value Reference Range Interpretation Comments Lymphocytes (test code = Lymphocytes) 8.3 20.0-40.0 [place] [address]-06-04 15:46:00 Test Item Value Reference Range Interpretation Comments Monocytes (test code = Monocytes) 8.4 2.0-12.0 [place] [address]-06-04 15:46:00 Test Item Value Reference Range Interpretation Comments Basophils (test code = 0.3 See_Comment [Aut omated message] The Basophils) system which ge nerated this result tra nsmitted reference range : <=1.0. The reference r chase was not used to int erpret this result as normal/abnormal . [place] 789280-06-04 15:46:00 Test Item Value Reference Range Interpretation Comments Neutrophils # (test code = Neutrophils 7.0 1.5-8.1 #) [facility] CenterEcsqlncMWHGJRBQTH9422-80-50 15:46:00 Test Item Value Reference Range Interpretation Comments Lymphocytes # (test code = Lymphocytes 0.7 1.0-5.5 #) [place] 789280-06-04 15:46:00 Test Item Value Reference Range Interpretation Comments Monocytes # (test code 0.7 See_Comment [Aut omated message] The = Monocytes #) system which generated this result tra nsmitted reference range : <=0.8. The reference r chase was not used to int erpret this result as normal/abnormal . [place] 763680-06-04 15:46:00 Test Item Value Reference Range Interpretation Comments Glucose Lvl (test code = Glucose Lvl) 342 70-99 [facility]2020-06-04 15:46:00 Test Item Value Reference Range Interpretation Comments BUN (test code = BUN) 14 7-22 [place] 763680-06-04 15:46:00 Test Item Value Reference Range Interpretation Comments Creatinine Lvl (test code = Creatinine 1.00 0.50-1.40 Lvl) [facility]2020-06-04 15:46:00 Test Item Value Reference Range Interpretation Comments Sodium Lvl (test code = Sodium Lvl) 135 135-145 [facility]2020-06-04 15:46:00 Test Item Value Reference Range Interpretation Comments Potassium Lvl (test code = Potassium 4.8 3.5-5.1 Lvl) [place] 763680-06-04 15:46:00 Test Item Value Reference Range Interpretation Comments Chloride Lvl (test code = Chloride Lvl) 101 95-109 [place] 763680-06-04 15:46:00 Test Item Value Reference Range Interpretation Comments CO2 (test code = CO2) 24 24-32 [place] 763680-06-04 15:46:00 Test Item Value Reference Range Interpretation Comments Calcium Lvl (test code = Calcium Lvl) 9.9 8.5-10.5 [place] 763680-06-04 15:46:00 Test Item Value Reference Range Interpretation Comments Total Protein (test code = Total 7.3 6.4-8.4 Protein) [facility] [employer] [id number] 15:46:00 Test Item Value Reference Range Interpretation Comments Albumin Lvl (test code = Albumin Lvl) 2.9 3.5-5.0 [facility] [employer] [id number] 15:46:00 Test Item Value Reference Range Interpretation Comments ALT (test code = ALT) 26 See_Comment [Auto mated message] The system which ge nerated this result transmit bright reference range : <=65. The reference range was not used to interpr et this result as candice l/abnormal. [facility] [employer] [id number] 15:46:00 Test Item Value Reference Range Interpretation Comments AST (test code = AST) 17 See_Comment [Auto mated message] The system which ge nerated this result transmit bright reference range : <=37. The reference range was not used to interpr et this result as candice l/abnormal. [facility] [employer] [id number] 15:46:00 Test Item Value Reference Range Interpretation Comments Alk Phos (test code = Alk Phos) 120 39-136 [facility] [employer] [id number] 15:46:00 Test Item Value Reference Range Interpretation Comments Bili Total (test code = Bili Total) 0.5 0.2-1.3 [facility] [employer] [id number] 15:46:00 Test Item Value Reference Range Interpretation Comments AGAP (test code = AGAP) 14.8 10.0-20.0 [facility] [employer] [id number] 15:46:00 Test Item Value Reference Range Interpretation Comments B/C Ratio (test code = B/C Ratio) 14 1 6-25 [facility] [employer] [id number] 15:46:00 Test Item Value Reference Range Interpretation Comments Globulin (test code = Globulin) 4.4 2.7-4.2 [facility] [employer] [id number] 15:46:00 Test Item Value Reference Range Interpretation Comments A/G Ratio (test code = A/G Ratio) 0.7 1 0.7-1.6 [facility] [employer] [id number] 15:46:00 Test Item Value Reference Range Interpretation Comments eGFR (test code = eGFR) 62 [facility]2020-06-04 15:46:00 Test Item Value Reference Range Interpretation Comments Lactic Acid Lvl (test code = Lactic 2.3 0.5-2.2 Acid Lvl) [facility] CenterZjcbftjRPMFFOHTJK9248-49-18 15:46:00 Test Item Value Reference Range Interpretation Comments WBC (test code = WBC) 8.4 3.7-10.4 [facility] CenterNqzhbtuUQNJLOAEGO5783-09-96 15:46:00 Test Item Value Reference Range Interpretation Comments RBC (test code = RBC) 4.74 4.20-5.40 [facility] CenterLeicqocLEYRSHQGWG8503-48-56 15:46:00 Test Item Value Reference Range Interpretation Comments Hgb (test code = Hgb) 15.9 12.0-16.0 [place] [address]-06-04 15:46:00 Test Item Value Reference Range Interpretation Comments Hct (test code = Hct) 45.6 36.0-48.0 [facility] CenterWjpkihjWZAJKQLCOK2319-31-62 15:46:00 Test Item Value Reference Range Interpretation Comments MCV (test code = MCV) 96.3 80.0-98.0 [place] [address]-06-04 15:46:00 Test Item Value Reference Range Interpretation Comments MCH (test code = MCH) 33.6 pg 27.0-31.0 [facility] CenterLipszbgONSIAHOGSC1298-34-36 15:46:00 Test Item Value Reference Range Interpretation Comments MCHC (test code = MCHC) 34.9 32.0-36.0 [facility] CenterSujecbnAHKEETGTGC3840-12-21 15:46:00 Test Item Value Reference Range Interpretation Comments RDW (test code = RDW) 13.4 11.5-14.5 [place] [address]-06-04 15:46:00 Test Item Value Reference Range Interpretation Comments Platelet (test code = Platelet) 247 133-450 [facility] CenterHaovhssIKIIPPPLJK2034-34-41 15:46:00 Test Item Value Reference Range Interpretation Comments MPV (test code = MPV) 9.3 7.4-10.4 [facility] CenterNwscfyzTNLLKTIQCR2385-82-73 15:46:00 Test Item Value Reference Range Interpretation Comments Segs (test code = Segs) 83.0 45.0-75.0 [place] [address]-06-04 15:46:00 Test Item Value Reference Range Interpretation Comments Lymphocytes (test code = Lymphocytes) 8.3 20.0-40.0 [place] 789280-06-04 15:46:00 Test Item Value Reference Range Interpretation Comments Monocytes (test code = Monocytes) 8.4 2.0-12.0 [place] [address]-06-04 15:46:00 Test Item Value Reference Range Interpretation Comments Basophils (test code = 0.3 See_Comment [Aut omated message] The Basophils) system which ge nerated this result tra nsmitted reference range : <=1.0. The reference r chase was not used to int erpret this result as normal/abnormal . [place] 789280-06-04 15:46:00 Test Item Value Reference Range Interpretation Comments Neutrophils # (test code = Neutrophils 7.0 1.5-8.1 #) [place] 789280-06-04 15:46:00 Test Item Value Reference Range Interpretation Comments Lymphocytes # (test code = Lymphocytes 0.7 1.0-5.5 #) [place] [address]-06-04 15:46:00 Test Item Value Reference Range Interpretation Comments Monocytes # (test code 0.7 See_Comment [Aut omated message] The = Monocytes #) system which generated this result tra nsmitted reference range : <=0.8. The reference r chase was not used to int erpret this result as normal/abnormal . [facility]2020-06-04 15:46:00 Test Item Value Reference Range Interpretation Comments Glucose Lvl (test code = Glucose Lvl) 342 70-99 [place] 763680-06-04 15:46:00 Test Item Value Reference Range Interpretation Comments BUN (test code = BUN) 14 7-22 [facility]2020-06-04 15:46:00 Test Item Value Reference Range Interpretation Comments Creatinine Lvl (test code = Creatinine 1.00 0.50-1.40 Lvl) [facility]2020-06-04 15:46:00 Test Item Value Reference Range Interpretation Comments Sodium Lvl (test code = Sodium Lvl) 135 135-[address] [facility] [id number] 15:46:00 Test Item Value Reference Range Interpretation Comments Potassium Lvl (test code = Potassium 4.8 3.5-5.1 Lvl) [facility] [id number] 15:46:00 Test Item Value Reference Range Interpretation Comments Chloride Lvl (test code = Chloride Lvl) 101 95-109 [facility] [id number] 15:46:00 Test Item Value Reference Range Interpretation Comments CO2 (test code = CO2) 24 24-32 [facility] [id number] 15:46:00 Test Item Value Reference Range Interpretation Comments Calcium Lvl (test code = Calcium Lvl) 9.9 8.5-10.5 [facility] [employer] [id number] 15:46:00 Test Item Value Reference Range Interpretation Comments Total Protein (test code = Total 7.3 6.4-8.4 Protein) [facility] [id number] 15:46:00 Test Item Value Reference Range Interpretation Comments Albumin Lvl (test code = Albumin Lvl) 2.9 3.5-5.0 [facility] [employer] [id number] 15:46:00 Test Item Value Reference Range Interpretation Comments ALT (test code = ALT) 26 See_Comment [Auto mated message] The system which ge nerated this result transmit bright reference range : <=65. The reference range was not used to interpr et this result as candice l/abnormal. [facility] [employer] [id number] 15:46:00 Test Item Value Reference Range Interpretation Comments AST (test code = AST) 17 See_Comment [Auto mated message] The system which ge nerated this result transmit bright reference range : <=37. The reference range was not used to interpr et this result as candice l/abnormal. [facility] [employer] [id number] 15:46:00 Test Item Value Reference Range Interpretation Comments Alk Phos (test code = Alk Phos) 120 39-136 [facility] [employer] [id number] 15:46:00 Test Item Value Reference Range Interpretation Comments Bili Total (test code = Bili Total) 0.5 0.2-1.3 [facility] [employer] [id number] 15:46:00 Test Item Value Reference Range Interpretation Comments AGAP (test code = AGAP) 14.8 10.0-20.0 [facility]2020-06-04 15:46:00 Test Item Value Reference Range Interpretation Comments B/C Ratio (test code = B/C Ratio) 14 1 6-25 [facility]2020-06-04 15:46:00 Test Item Value Reference Range Interpretation Comments Globulin (test code = Globulin) 4.4 2.7-4.2 [facility]2020-06-04 15:46:00 Test Item Value Reference Range Interpretation Comments A/G Ratio (test code = A/G Ratio) 0.7 1 0.7-1.6 [facility]2020-06-04 15:46:00 Test Item Value Reference Range Interpretation Comments eGFR (test code = eGFR) 62 [facility]2020-06-04 15:46:00 Test Item Value Reference Range Interpretation Comments Lactic Acid Lvl (test code = Lactic 2.3 0.5-2.2 Acid Lvl) [facility] CenterGximdxeRYAAPBYRQF3098-96-67 15:46:00 Test Item Value Reference Range Interpretation Comments WBC (test code = WBC) 8.4 3.7-10.4 [facility]LvyqyqoGGUKBBMEJU3777-72-13 15:46:00 Test Item Value Reference Range Interpretation Comments RBC (test code = RBC) 4.74 4.20-5.40 [facility] CenterScyvmdpPSJGVPXZRH7402-99-61 15:46:00 Test Item Value Reference Range Interpretation Comments Hgb (test code = Hgb) 15.9 12.0-16.0 [facility]GS[facility]AW[facility]AR4955-91-61 15:46:00 Test Item Value Reference Range Interpretation Comments Hct (test code = Hct) 45.6 36.0-48.0 [place] 789280-06-04 15:46:00 Test Item Value Reference Range Interpretation Comments MCV (test code = MCV) 96.3 80.0-98.0 [facility]kttyqeAYYAHSKMUR9817-71-87 15:46:00 Test Item Value Reference Range Interpretation Comments MCH (test code = MCH) 33.6 pg 27.0-31.0 [facility]JqqjfhyHEWOSEQJZD9674-65-55 15:46:00 Test Item Value Reference Range Interpretation Comments MCHC (test code = MCHC) 34.9 32.0-36.0 [place] 789280-06-04 15:46:00 Test Item Value Reference Range Interpretation Comments RDW (test code = RDW) 13.4 11.5-14.5 [facility] CenterIblxaulKUQJNIBQFB0238-18-17 15:46:00 Test Item Value Reference Range Interpretation Comments Platelet (test code = Platelet) 247 133-450 [facility] CenterWjnsdndVBACOJLUZZ8758-64-06 15:46:00 Test Item Value Reference Range Interpretation Comments MPV (test code = MPV) 9.3 7.4-10.4 [facility] CenterBvzdztjLVVFKBSNJR4250-75-07 15:46:00 Test Item Value Reference Range Interpretation Comments Segs (test code = Segs) 83.0 45.0-75.0 [facility] CenterVvafzbaZAJXSCCAZG2639-18-63 15:46:00 Test Item Value Reference Range Interpretation Comments Lymphocytes (test code = Lymphocytes) 8.3 20.0-40.0 [facility] CenterHlqcoopSUDVCJMPFI8787-53-02 15:46:00 Test Item Value Reference Range Interpretation Comments Monocytes (test code = Monocytes) 8.4 2.0-12.0 [facility] CenterSvbzcoxNXVNMYOFLO4633-16-51 15:46:00 Test Item Value Reference Range Interpretation Comments Basophils (test code = 0.3 See_Comment [Aut omated message] The Basophils) system which ge nerated this result tra nsmitted reference range : <=1.0. The reference r chase was not used to int erpret this result as normal/abnormal . [facility] CenterGqfvblbJZUGQWRKYP1713-71-57 15:46:00 Test Item Value Reference Range Interpretation Comments Neutrophils # (test code = Neutrophils 7.0 1.5-8.1 #) [facility] CenterKeytncsQZTHROHTGQ1991-57-26 15:46:00 Test Item Value Reference Range Interpretation Comments Lymphocytes # (test code = Lymphocytes 0.7 1.0-5.5 #) [place] 789280-06-04 15:46:00 Test Item Value Reference Range Interpretation Comments Monocytes # (test code 0.7 See_Comment [Aut omated message] The = Monocytes #) system which generated this result tra nsmitted reference range : <=0.8. The reference r chase was not used to int erpret this result as normal/abnormal . [facility]2020-06-04 15:46:00 Test Item Value Reference Range Interpretation Comments Glucose Lvl (test code = Glucose Lvl) 342 70-99 [place] 763680-06-04 15:46:00 Test Item Value Reference Range Interpretation Comments BUN (test code = BUN) 14 7-22 [place] [address]-06-04 15:46:00 Test Item Value Reference Range Interpretation Comments Creatinine Lvl (test code = Creatinine 1.00 0.50-1.40 Lvl) [place] 763680-06-04 15:46:00 Test Item Value Reference Range Interpretation Comments Sodium Lvl (test code = Sodium Lvl) 135 135-145 [place] [address]-06-04 15:46:00 Test Item Value Reference Range Interpretation Comments Potassium Lvl (test code = Potassium 4.8 3.5-5.1 Lvl) [place] 763680-06-04 15:46:00 Test Item Value Reference Range Interpretation Comments Chloride Lvl (test code = Chloride Lvl) 101 95-109 [place] 763680-06-04 15:46:00 Test Item Value Reference Range Interpretation Comments CO2 (test code = CO2) 24 24-32 [place] [address]-06-04 15:46:00 Test Item Value Reference Range Interpretation Comments Calcium Lvl (test code = Calcium Lvl) 9.9 8.5-10.5 [facility]2020-06-04 15:46:00 Test Item Value Reference Range Interpretation Comments Total Protein (test code = Total 7.3 6.4-8.4 Protein) [place] 763680-06-04 15:46:00 Test Item Value Reference Range Interpretation Comments Albumin Lvl (test code = Albumin Lvl) 2.9 3.5-5.0 [place] 763680-06-04 15:46:00 Test Item Value Reference Range Interpretation Comments ALT (test code = ALT) 26 See_Comment [Auto mated message] The system which ge nerated this result transmit bright reference range : <=65. The reference range was not used to interpr et this result as candice l/abnormal. [facility] [id number] 15:46:00 Test Item Value Reference Range Interpretation Comments AST (test code = AST) 17 See_Comment [Auto mated message] The system which ge nerated this result transmit bright reference range : <=37. The reference range was not used to interpr et this result as candice l/abnormal. [facility]2020-06-04 15:46:00 Test Item Value Reference Range Interpretation Comments Alk Phos (test code = Alk Phos) 120 39-136 [place] 763680-06-04 15:46:00 Test Item Value Reference Range Interpretation Comments Bili Total (test code = Bili Total) 0.5 0.2-1.3 [place] 763680-06-04 15:46:00 Test Item Value Reference Range Interpretation Comments AGAP (test code = AGAP) 14.8 10.0-20.0 [place] [address]-06-04 15:46:00 Test Item Value Reference Range Interpretation Comments B/C Ratio (test code = B/C Ratio) 14 1 6-25 [place] [address]-06-04 15:46:00 Test Item Value Reference Range Interpretation Comments Globulin (test code = Globulin) 4.4 2.7-4.[address] [id number] 15:46:00 Test Item Value Reference Range Interpretation Comments A/G Ratio (test code = A/G Ratio) 0.7 1 0.7-1.6 [place] [address]-06-04 15:46:00 Test Item Value Reference Range Interpretation Comments eGFR (test code = eGFR) 62 [place] 763680-06-04 15:46:00 Test Item Value Reference Range Interpretation Comments Lactic Acid Lvl (test code = Lactic 2.3 0.5-2.2 Acid Lvl) [facility] CenterPwrtyemKHBFINEQTX4793-99-16 15:46:00 Test Item Value Reference Range Interpretation Comments WBC (test code = WBC) 8.4 3.7-10.4 [place] [address]-06-04 15:46:00 Test Item Value Reference Range Interpretation Comments RBC (test code = RBC) 4.74 4.20-5.40 [place] [address]-06-04 15:46:00 Test Item Value Reference Range Interpretation Comments Hgb (test code = Hgb) 15.9 12.0-16.0 [place] [address]-06-04 15:46:00 Test Item Value Reference Range Interpretation Comments Hct (test code = Hct) 45.6 36.0-48.0 [facility] CenterOwsphcaGHXCOBQTCW2937-40-88 15:46:00 Test Item Value Reference Range Interpretation Comments MCV (test code = MCV) 96.3 80.0-98.0 [place] [address]-06-04 15:46:00 Test Item Value Reference Range Interpretation Comments MCH (test code = MCH) 33.6 pg 27.0-31.0 [facility] CenterBvtwsfcLSCWSHQQJJ4829-18-87 15:46:00 Test Item Value Reference Range Interpretation Comments MCHC (test code = MCHC) 34.9 32.0-36.0 [facility] CenterDgsoqswVHRBOYAREF4292-25-02 15:46:00 Test Item Value Reference Range Interpretation Comments RDW (test code = RDW) 13.4 11.5-14.5 [facility] CenterQsavepzPPIFYYSYGB9486-55-47 15:46:00 Test Item Value Reference Range Interpretation Comments Platelet (test code = Platelet) 247 133-450 [facility] CenterAegfxfeYCQBFCYCJK9841-13-22 15:46:00 Test Item Value Reference Range Interpretation Comments MPV (test code = MPV) 9.3 7.4-10.4 [facility] CenterFicijemNLBUBZEBPL0868-93-46 15:46:00 Test Item Value Reference Range Interpretation Comments Segs (test code = Segs) 83.0 45.0-75.0 [facility] CenterEshvbbfXHKNFEJZSY3220-42-52 15:46:00 Test Item Value Reference Range Interpretation Comments Lymphocytes (test code = Lymphocytes) 8.3 20.0-40.0 [place] 789280-06-04 15:46:00 Test Item Value Reference Range Interpretation Comments Monocytes (test code = Monocytes) 8.4 2.0-12.0 [place] [address]-06-04 15:46:00 Test Item Value Reference Range Interpretation Comments Basophils (test code = 0.3 See_Comment [Aut omated message] The Basophils) system which ge nerated this result tra nsmitted reference range : <=1.0. The reference r chase was not used to int erpret this result as normal/abnormal . [facility] CenterTrcejucHSXAMRZCRU5780-36-24 15:46:00 Test Item Value Reference Range Interpretation Comments Neutrophils # (test code = Neutrophils 7.0 1.5-8.1 #) [facility] CenterNaabgkzOIUZOQWFHU6320-40-26 15:46:00 Test Item Value Reference Range Interpretation Comments Lymphocytes # (test code = Lymphocytes 0.7 1.0-5.5 #) [facility] CenterFyvzzyuLPUZBBNUJW8646-61-40 15:46:00 Test Item Value Reference Range Interpretation Comments Monocytes # (test code 0.7 See_Comment [Aut omated message] The = Monocytes #) system which generated this result tra nsmitted reference range : <=0.8. The reference r chase was not used to int erpret this result as normal/abnormal . [facility]2020-06-04 15:46:00 Test Item Value Reference Range Interpretation Comments Glucose Lvl (test code = Glucose Lvl) 342 70-99 [facility]2020-06-04 15:46:00 Test Item Value Reference Range Interpretation Comments BUN (test code = BUN) 14 7-22 [place] 763680-06-04 15:46:00 Test Item Value Reference Range Interpretation Comments Creatinine Lvl (test code = Creatinine 1.00 0.50-1.40 Lvl) [facility]2020-06-04 15:46:00 Test Item Value Reference Range Interpretation Comments Sodium Lvl (test code = Sodium Lvl) 135 135-145 [facility]2020-06-04 15:46:00 Test Item Value Reference Range Interpretation Comments Potassium Lvl (test code = Potassium 4.8 3.5-5.1 Lvl) [place] 763680-06-04 15:46:00 Test Item Value Reference Range Interpretation Comments Chloride Lvl (test code = Chloride Lvl) 101 95-109 [facility]2020-06-04 15:46:00 Test Item Value Reference Range Interpretation Comments CO2 (test code = CO2) 24 24-32 [facility]2020-06-04 15:46:00 Test Item Value Reference Range Interpretation Comments Calcium Lvl (test code = Calcium Lvl) 9.9 8.5-10.5 [place] 763680-06-04 15:46:00 Test Item Value Reference Range Interpretation Comments Total Protein (test code = Total 7.3 6.4-8.4 Protein) [place] 763680-06-04 15:46:00 Test Item Value Reference Range Interpretation Comments Albumin Lvl (test code = Albumin Lvl) 2.9 3.5-5.0 [facility] [employer]2020-06-04 15:46:00 Test Item Value Reference Range Interpretation Comments ALT (test code = ALT) 26 See_Comment [Auto mated message] The system which ge nerated this result transmit bright reference range : <=65. The reference range was not used to interpr et this result as candice l/abnormal. [employer]2020-06-04 15:46:00 Test Item Value Reference Range Interpretation Comments AST (test code = AST) 17 See_Comment [Auto mated message] The system which ge nerated this result transmit bright reference range : <=37. The reference range was not used to interpr et this result as candice l/abnormal. [facility] [employer]2020-06-04 15:46:00 Test Item Value Reference Range Interpretation Comments Alk Phos (test code = Alk Phos) 120 39-136 [facility] [employer]2020-06-04 15:46:00 Test Item Value Reference Range Interpretation Comments Bili Total (test code = Bili Total) 0.5 0.2-1.3 [facility] [employer]2020-06-04 15:46:00 Test Item Value Reference Range Interpretation Comments AGAP (test code = AGAP) 14.8 10.0-20.0 [facility] [employer]2020-06-04 15:46:00 Test Item Value Reference Range Interpretation Comments B/C Ratio (test code = B/C Ratio) 14 1 6-25 [facility] [employer]2020-06-04 15:46:00 Test Item Value Reference Range Interpretation Comments Globulin (test code = Globulin) 4.4 2.7-4.2 [facility] [employer]0-06-04 15:46:00 Test Item Value Reference Range Interpretation Comments A/G Ratio (test code = A/G Ratio) 0.7 1 0.7-1.6 [facility] [employer]2020-06-04 15:46:00 Test Item Value Reference Range Interpretation Comments eGFR (test code = eGFR) 62 [facility] [employer]2020-06-04 15:46:00 Test Item Value Reference Range Interpretation Comments Lactic Acid Lvl (test code = Lactic 2.3 0.5-2.2 Acid Lvl) [facility] CenterQzqutioANFYTSXCOA0680-89-11 15:46:00 Test Item Value Reference Range Interpretation Comments WBC (test code = WBC) 8.4 3.7-10.4 [facility] CenterXlgpkveGJXUXFPWKX6777-86-73 15:46:00 Test Item Value Reference Range Interpretation Comments RBC (test code = RBC) 4.74 4.20-5.40 [facility] CenterYxdwdrbXFNDFKEYNB0576-59-27 15:46:00 Test Item Value Reference Range Interpretation Comments Hgb (test code = Hgb) 15.9 12.0-16.0 [facility] CenterImgvgesZJJDRRCSYK0986-60-67 15:46:00 Test Item Value Reference Range Interpretation Comments Hct (test code = Hct) 45.6 36.0-48.0 [facility] CenterMtxzfrrWWGIEJMTKD3747-75-46 15:46:00 Test Item Value Reference Range Interpretation Comments MCV (test code = MCV) 96.3 80.0-98.0 [facility] CenterOoorichYUWZGRGISK5488-65-55 15:46:00 Test Item Value Reference Range Interpretation Comments MCH (test code = MCH) 33.6 pg 27.0-31.0 [facility] CenterMsfsrqzXZJNENKQAU6010-88-25 15:46:00 Test Item Value Reference Range Interpretation Comments MCHC (test code = MCHC) 34.9 32.0-36.0 [facility] CenterVfznndtZEEKEVPRDW6809-35-93 15:46:00 Test Item Value Reference Range Interpretation Comments RDW (test code = RDW) 13.4 11.5-14.5 [facility] CenterIemwdzzCLZXNJXCIA6766-08-72 15:46:00 Test Item Value Reference Range Interpretation Comments Platelet (test code = Platelet) 247 133-450 [facility] CenterVxgtjmdTPALYYYKGO6223-21-69 15:46:00 Test Item Value Reference Range Interpretation Comments MPV (test code = MPV) 9.3 7.4-10.4 [facility] CenterGozzaefTMKNLYVQBG4180-79-62 15:46:00 Test Item Value Reference Range Interpretation Comments Segs (test code = Segs) 83.0 45.0-75.0 [facility] CenterDcqspaoNVTAIKOBRE1095-88-16 15:46:00 Test Item Value Reference Range Interpretation Comments Lymphocytes (test code = Lymphocytes) 8.3 20.0-40.0 [place] 789280-06-04 15:46:00 Test Item Value Reference Range Interpretation Comments Monocytes (test code = Monocytes) 8.4 2.0-12.0 [place] 789280-06-04 15:46:00 Test Item Value Reference Range Interpretation Comments Basophils (test code = 0.3 See_Comment [Aut omated message] The Basophils) system which ge nerated this result tra nsmitted reference range : <=1.0. The reference r chase was not used to int erpret this result as normal/abnormal . [facility] CenterXvfcqfrCYDEOEXOAZ6468-69-21 15:46:00 Test Item Value Reference Range Interpretation Comments Neutrophils # (test code = Neutrophils 7.0 1.5-8.1 #) [facility] CenterJppsoedXCXAADDHXV1030-91-30 15:46:00 Test Item Value Reference Range Interpretation Comments Lymphocytes # (test code = Lymphocytes 0.7 1.0-5.5 #) [facility] CenterFeajxonDJSAMQHHVB6781-46-49 15:46:00 Test Item Value Reference Range Interpretation Comments Monocytes # (test code 0.7 See_Comment [Aut omated message] The = Monocytes #) system which generated this result tra nsmitted reference range : <=0.8. The reference r chase was not used to int erpret this result as normal/abnormal . [facility] [id number] 15:46:00 Test Item Value Reference Range Interpretation Comments Glucose Lvl (test code = Glucose Lvl) 342 70-99 [facility]2020-06-04 15:46:00 Test Item Value Reference Range Interpretation Comments BUN (test code = BUN) 14 7-[address] [facility] [id number] 15:46:00 Test Item Value Reference Range Interpretation Comments Creatinine Lvl (test code = Creatinine 1.00 0.50-1.40 Lvl) [facility] [id number] 15:46:00 Test Item Value Reference Range Interpretation Comments Sodium Lvl (test code = Sodium Lvl) 135 135-145 [facility]2020-06-04 15:46:00 Test Item Value Reference Range Interpretation Comments Potassium Lvl (test code = Potassium 4.8 3.5-5.1 Lvl) [facility] [id number] 15:46:00 Test Item Value Reference Range Interpretation Comments Chloride Lvl (test code = Chloride Lvl) 101 95-109 [facility] AmericaWyzAnt.comECU HEALTH CHOWAN HOSPITALZASLD6733-56-77 15:46:00 Test Item Value Reference Range Interpretation Comments CO2 (test code = CO2) 24 24-32 [facility] AmericaWyzAnt.comECU HEALTH CHOWAN HOSPITALNUSWU3650-56-45 15:46:00 Test Item Value Reference Range Interpretation Comments Calcium Lvl (test code = Calcium Lvl) 9.9 8.5-10.5 [facility] America[facility] [id number] 15:46:00 Test Item Value Reference Range Interpretation Comments Total Protein (test code = Total 7.3 6.4-8.4 Protein) [facility] [id number] 15:46:00 Test Item Value Reference Range Interpretation Comments Albumin Lvl (test code = Albumin Lvl) 2.9 3.5-5.0 [facility] [id number] 15:46:00 Test Item Value Reference Range Interpretation Comments ALT (test code = ALT) 26 <=65 [facility] [id number] 15:46:00 Test Item Value Reference Range Interpretation Comments AST (test code = AST) 17 <=37 [facility] [id number] 15:46:00 Test Item Value Reference Range Interpretation Comments Alk Phos (test code = Alk Phos) 120 39-136 [facility] [id number] 15:46:00 Test Item Value Reference Range Interpretation Comments Bili Total (test code = Bili Total) 0.5 0.2-1.3 [facility] [employer] [id number] 15:46:00 Test Item Value Reference Range Interpretation Comments AGAP (test code = AGAP) 14.8 10.0-20.0 [facility] [employer] [id number] 15:46:00 Test Item Value Reference Range Interpretation Comments B/C Ratio (test code = B/C Ratio) 14 1 6-25 [facility] [id number] 15:46:00 Test Item Value Reference Range Interpretation Comments Globulin (test code = Globulin) 4.4 2.7-4.2 [facility] [id number] 15:46:00 Test Item Value Reference Range Interpretation Comments A/G Ratio (test code = A/G Ratio) 0.7 1 0.7-1.6 [facility]2020-06-04 15:46:00 Test Item Value Reference Range Interpretation Comments eGFR (test code = eGFR) 62 [facility]2020-06-04 15:46:00 Test Item Value Reference Range Interpretation Comments Lactic Acid Lvl (test code = Lactic 2.3 0.5-2.2 Acid Lvl) [facility] CenterQvpvnmwZQBXIZKYXP0802-13-47 15:46:00 Test Item Value Reference Range Interpretation Comments WBC (test code = WBC) 8.4 3.7-10.4 [place] [address]-06-04 15:46:00 Test Item Value Reference Range Interpretation Comments RBC (test code = RBC) 4.74 4.20-5.40 [place] [address]-06-04 15:46:00 Test Item Value Reference Range Interpretation Comments Hgb (test code = Hgb) 15.9 12.0-16.0 [place] [address]-06-04 15:46:00 Test Item Value Reference Range Interpretation Comments Hct (test code = Hct) 45.6 36.0-48.0 [facility] CenterZqyjvtoMQVCAQOVLB5602-46-68 15:46:00 Test Item Value Reference Range Interpretation Comments MCV (test code = MCV) 96.3 80.0-98.0 [place] [address]-06-04 15:46:00 Test Item Value Reference Range Interpretation Comments MCH (test code = MCH) 33.6 pg 27.0-31.0 [place] 789280-06-04 15:46:00 Test Item Value Reference Range Interpretation Comments MCHC (test code = MCHC) 34.9 32.0-36.0 [place] 789280-06-04 15:46:00 Test Item Value Reference Range Interpretation Comments RDW (test code = RDW) 13.4 11.5-14.5 [place] [address]-06-04 15:46:00 Test Item Value Reference Range Interpretation Comments Platelet (test code = Platelet) 247 133-450 [place] 789280-06-04 15:46:00 Test Item Value Reference Range Interpretation Comments MPV (test code = MPV) 9.3 7.4-10.4 [place] 789280-06-04 15:46:00 Test Item Value Reference Range Interpretation Comments Segs (test code = Segs) 83.0 45.0-75.0 [facility] CenterDlwnovjNDZFASTKVC4594-20-38 15:46:00 Test Item Value Reference Range Interpretation Comments Lymphocytes (test code = Lymphocytes) 8.3 20.0-40.0 [facility] CenterBfczmkzECLFBPFEKV9046-21-65 15:46:00 Test Item Value Reference Range Interpretation Comments Monocytes (test code = Monocytes) 8.4 2.0-12.0 [facility] CenterCbshajuMDNDPTKSVZ7282-07-38 15:46:00 Test Item Value Reference Range Interpretation Comments Basophils (test code = Basophils) 0.3 <=1.0 [facility] CenterIcwbipeTZXLTZDPTC0236-04-08 15:46:00 Test Item Value Reference Range Interpretation Comments Neutrophils # (test code = Neutrophils 7.0 1.5-8.1 #) [facility] CenterUmqifjtTHHUIXCBZW9356-21-86 15:46:00 Test Item Value Reference Range Interpretation Comments Lymphocytes # (test code = Lymphocytes 0.7 1.0-5.5 #) [facility] CenterKshgxdbQRLURWAHUL4429-11-59 15:46:00 Test Item Value Reference Range Interpretation Comments Monocytes # (test code = Monocytes #) 0.[address] <=0.[address] [facility] Center[facility] [id number] 21:46:00 Test Item Value Reference Range Interpretation Comments Procalcitonin Lvl <0.05 ng/mL See_Comment [Automate d message] (test code = The system whic h Procalcitonin Lvl) generated this result transmit bright reference range : <=0.10. The reference range was not used to interpret this result as normal/abnormal . [facility] Center[facility] [id number] 21:46:00 Test Item Value Reference Range Interpretation Comments Lactic Acid Lvl (test code = Lactic 1.6 0.5-2.2 Acid Lvl) [facility] Center[facility] [id number] 21:46:00 Test Item Value Reference Range Interpretation Comments eGFR (test code = eGFR) [address] [facility] Center[facility] [id number] 21:46:00 Test Item Value Reference Range Interpretation Comments AST (test code = AST) 21 See_Comment [Auto mated message] The system which ge nerated this result transmit bright reference range : <=37. The reference range was not used to interpr et this result as candice l/abnormal. [facility]2019-07-09 21:46:00 Test Item Value Reference Range Interpretation Comments Alk Phos (test code = Alk Phos) 131 39-136 [facility]2019-07-09 21:46:00 Test Item Value Reference Range Interpretation Comments Bili Total (test code = Bili Total) 0.5 0.2-1.3 [facility]2019-07-09 21:46:00 Test Item Value Reference Range Interpretation Comments Glucose Lvl (test code = Glucose Lvl) 340 70-99 [facility]2019-07-09 21:46:00 Test Item Value Reference Range Interpretation Comments BUN (test code = BUN) 18 7-22 [facility]2019-07-09 21:46:00 Test Item Value Reference Range Interpretation Comments Creatinine Lvl (test code = Creatinine 0.93 0.50-1.40 Lvl) [facility]2019-07-09 21:46:00 Test Item Value Reference Range Interpretation Comments Albumin Lvl (test code = Albumin Lvl) 3.6 3.5-5.0 [facility]2019-07-09 21:46:00 Test Item Value Reference Range Interpretation Comments ALT (test code = ALT) 35 See_Comment [Auto mated message] The system which ge nerated this result transmit bright reference range : <=65. The reference range was not used to interpr et this result as candice l/abnormal. [facility]2019-07-09 21:46:00 Test Item Value Reference Range Interpretation Comments CO2 (test code = CO2) 28 24-32 [facility]2019-07-09 21:46:00 Test Item Value Reference Range Interpretation Comments Calcium Lvl (test code = Calcium Lvl) 10.7 8.5-10.5 [facility]2019-07-09 21:46:00 Test Item Value Reference Range Interpretation Comments Total Protein (test code = Total 7.7 6.4-8.4 Protein) [facility]2019-07-09 21:46:00 Test Item Value Reference Range Interpretation Comments Sodium Lvl (test code = Sodium Lvl) 134 135-145 [facility]2019-07-09 21:46:00 Test Item Value Reference Range Interpretation Comments Chloride Lvl (test code = Chloride Lvl) 101 95-109 [facility]2019-07-09 21:46:00 Test Item Value Reference Range Interpretation Comments Potassium Lvl (test code = Potassium 4.2 3.5-5.1 Lvl) [facility]2019-07-09 21:46:00 Test Item Value Reference Range Interpretation Comments A/G Ratio (test code = A/G Ratio) 0.9 1 0.7-1.6 [facility]2019-07-09 21:46:00 Test Item Value Reference Range Interpretation Comments Globulin (test code = Globulin) 4.1 2.7-4.2 [facility]2019-07-09 21:46:00 Test Item Value Reference Range Interpretation Comments AGAP (test code = AGAP) 9.2 10.0-20.0 [facility]2019-07-09 21:46:00 Test Item Value Reference Range Interpretation Comments B/C Ratio (test code = B/C Ratio) 19 1 6-25 [facility]2019-07-09 21:46:00 Test Item Value Reference Range Interpretation Comments Lipase Lvl (test code = Lipase Lvl) 131 73-393 [facility]BpwcwkfVHRIADGXNX2695-42-54 21:46:00 Test Item Value Reference Range Interpretation Comments Basophils # (test code 0.1 See_Comment [Aut omated message] The = Basophils #) system which generated this result tra nsmitted reference range : <=0.2. The reference r chase was not used to int erpret this result as normal/abnormal . [facility] CenterTvvsezeIEVXUYSILS0817-99-36 21:46:00 Test Item Value Reference Range Interpretation Comments Eosinophils # (test code 0.1 See_Comment [A utomated message] The = Eosinophils #) system whic h generated this result tra nsmitted reference range : <=0.5. The reference r chase was not used to int erpret this result as normal/abnormal . [facility] CenterAbdgrwlPRNCOMRNFF8554-76-91 21:46:00 Test Item Value Reference Range Interpretation Comments Monocytes # (test code 0.4 See_Comment [Aut omated message] The = Monocytes #) system which generated this result tra nsmitted reference range : <=0.8. The reference r chase was not used to int erpret this result as normal/abnormal . [facility] CenterZsdnphwBZDTHSGFGV4012-16-19 21:46:00 Test Item Value Reference Range Interpretation Comments Lymphocytes # (test code = Lymphocytes 1.8 1.0-5.5 #) [facility] CenterYfhzhtlYGYRDQAFNG9605-27-11 21:46:00 Test Item Value Reference Range Interpretation Comments Neutrophils # (test code = Neutrophils 4.6 1.5-8.1 #) [facility] CenterBqxctffZOCZYXLXNC4787-63-75 21:46:00 Test Item Value Reference Range Interpretation Comments Basophils (test code = 0.6 See_Comment [Aut omated message] The Basophils) system which ge nerated this result tra nsmitted reference range : <=1.0. The reference r chase was not used to int erpret this result as normal/abnormal . [facility] CenterBwntchjWJJHAEVABB7204-87-92 21:46:00 Test Item Value Reference Range Interpretation Comments Eosinophils (test code = 0.9 See_Comment [A utomated message] The Eosinophils) system which ge nerated this result tra nsmitted reference range : <=4.0. The reference r chase was not used to int erpret this result as normal/abnormal . [facility] CenterXodwypbBEEMOFWIMP3710-68-34 21:46:00 Test Item Value Reference Range Interpretation Comments Monocytes (test code = Monocytes) 6.2 2.0-12.0 [facility] CenterCwtuosoZTGNPITEDI4377-02-06 21:46:00 Test Item Value Reference Range Interpretation Comments Lymphocytes (test code = Lymphocytes) 25.4 20.0-40.0 [facility] CenterNkqxzxsNEPNZDHYWQ0285-24-09 21:46:00 Test Item Value Reference Range Interpretation Comments Segs (test code = Segs) 66.9 45.0-75.0 [facility] CenterAtdmrpeCDYEDFSSLY9286-85-73 21:46:00 Test Item Value Reference Range Interpretation Comments Platelet (test code = Platelet) 277 133-450 [facility] CenterDoamqwpINQBGIFEMZ6520-02-33 21:46:00 Test Item Value Reference Range Interpretation Comments MPV (test code = MPV) 9.5 7.4-10.4 [facility] CenterWoqdhhzYTQXOCWXIZ9827-58-43 21:46:00 Test Item Value Reference Range Interpretation Comments MCHC (test code = MCHC) 35.4 32.0-36.0 [facility] CenterMvxeyybYSDUWLXXXA4278-72-54 21:46:00 Test Item Value Reference Range Interpretation Comments RDW (test code = RDW) 13.2 11.5-14.5 [facility] CenterZhparshNIPJJKCLPV2290-05-53 21:46:00 Test Item Value Reference Range Interpretation Comments MCV (test code = MCV) 95.2 80.0-98.0 [facility] CenterXyfwmhzLLJUHLKHLU7984-84-30 21:46:00 Test Item Value Reference Range Interpretation Comments MCH (test code = MCH) 33.8 pg 27.0-31.0 [facility] CenterIkywmcwSRCDVARNJO5835-07-53 21:46:00 Test Item Value Reference Range Interpretation Comments Hgb (test code = Hgb) 16.8 12.0-16.0 [facility] CenterUqtezqxPSURKFYFQH6318-12-08 21:46:00 Test Item Value Reference Range Interpretation Comments Hct (test code = Hct) 47.4 36.0-48.0 [facility] CenterZimklgsNRDXWUFFUO6708-11-50 21:46:00 Test Item Value Reference Range Interpretation Comments RBC (test code = RBC) 4.98 4.20-5.40 [facility] CenterSrwiohcIJEOLAZVDU2518-50-40 21:46:00 Test Item Value Reference Range Interpretation Comments WBC (test code = WBC) 6.9 3.7-10.4 [facility] CenterHiivfevGJEAJSCBEV0114-72-76 21:46:00 Test Item Value Reference Range Interpretation Comments PTT (test code = PTT) 27.0 s 22.9-35.8 [facility] CenterStlvkamKSSDRVSORO8014-09-37 21:46:00 Test Item Value Reference Range Interpretation Comments INR (test code = INR) 0.97 1 0.85-1.17 [facility] CenterXjddxsqNDYMQNRYNF3822-33-65 21:46:00 Test Item Value Reference Range Interpretation Comments PT (test code = PT) 12.7 s 12.0-14.7 [facility]2019-07-09 21:46:00 Test Item Value Reference Range Interpretation Comments UA Nitrite (test code Negative (01/03/19 4:46 = UA Nitrite) PM) [facility]2019-07-09 21:46:00 Test Item Value Reference Range Interpretation Comments UA Leuk Est (test code Small *ABN*(01/03/19 4:46 = UA Leuk Est) PM) [facility] AND [id number] 21:46:00 Test Item Value Reference Range Interpretation Comments UA Protein (test code = UA Protein) 100 mg/dL [facility] AND [id number] 21:46:00 Test Item Value Reference Range Interpretation Comments UA pH (test code = UA pH) 6.0 1 5.0-8.0 [facility] AND [id number] 21:46:00 Test Item Value Reference Range Interpretation Comments UA Mucus (test code = UA Mucus) Few /LPF [facility] AND [id number] 21:46:00 Test Item Value Reference Range Interpretation Comments UA Blood (test code = Negative (01/03/19 4:46 UA Blood) PM) [facility] AND [id number] 21:46:00 Test Item Value Reference Range Interpretation Comments UA Bili (test code = Negative *NA*(01/03/19 UA Bili) 4:46 PM) [facility] AND [id number] 21:46:00 Test Item Value Reference Range Interpretation Comments UA Hyal Cast (test 1 See_Comment [Automat ed message] The code = UA Hyal Cast) system which generated this result transmit bright reference range : <=2. The reference range was not used to interpr et this result as candice l/abnormal. [facility] AND [id number] 21:46:00 Test Item Value Reference Range Interpretation Comments UA WBC (test code = 7 See_Comment [Automa bright message] The UA WBC) system which ge nerated this result transmit bright reference range : <=5. The reference range was not used to interpr et this result as candice l/abnormal. [facility] AND [id number] 21:46:00 Test Item Value Reference Range Interpretation Comments UA RBC (test code = 13 See_Comment [Automa bright message] The UA RBC) system which ge nerated this result transmit bright reference range : <=2. The reference range was not used to interpr et this result as candice l/abnormal. [facility] AND [id number] 21:46:00 Test Item Value Reference Range Interpretation Comments UA Sq Epi (test code = UA Sq Epi) Many /LPF [facility] AND [id number] 21:46:00 Test Item Value Reference Range Interpretation Comments UA Urobilinogen (test code = UA <=1.0 mg/dL 0.1-1.0 Urobilinogen) [facility] AND [id number] 21:46:00 Test Item Value Reference Range Interpretation Comments UA Bradford Yeast (test code = UA Bradford Few /HPF Yeast) [facility] AND [id number] 21:46:00 Test Item Value Reference Range Interpretation Comments UA Glucose (test code = UA Glucose) 500 mg/dL [facility] AND [id number] 21:46:00 Test Item Value Reference Range Interpretation Comments UA Ketones (test code = UA Negative mg/dL Ketones) [facility] AND [id number] 21:46:00 Test Item Value Reference Range Interpretation Comments UA Color (test code = Yellow *NA*(01/03/19 4:46 UA Color) PM) [facility] AND [id number] 21:46:00 Test Item Value Reference Range Interpretation Comments UA Turbidity (test code Slight *ABN*(01/03/19 = UA Turbidity) 4:46 PM) [facility] AND [id number] 21:46:00 Test Item Value Reference Range Interpretation Comments UA Spec Grav (test code = UA Spec 1.027 1 Grav) [facility]2019-07-09 21:46:00 Test Item Value Reference Range Interpretation Comments Procalcitonin Lvl <0.05 ng/mL See_Comment [Automate d message] (test code = The system ic h Procalcitonin Lvl) generated this result transmit bright reference range : <=0.10. The reference range was not used to interpret this result as normal/abnormal . [facility] [id number] 21:46:00 Test Item Value Reference Range Interpretation Comments Lactic Acid Lvl (test code = Lactic 1.6 0.5-2.2 Acid Lvl) [facility]2019-07-09 21:46:00 Test Item Value Reference Range Interpretation Comments eGFR (test code = eGFR) 68 [facility]2019-07-09 21:46:00 Test Item Value Reference Range Interpretation Comments AST (test code = AST) 21 See_Comment [Auto mated message] The system which ge nerated this result transmit bright reference range : <=37. The reference range was not used to interpr et this result as candice l/abnormal. [facility]2019-07-09 21:46:00 Test Item Value Reference Range Interpretation Comments Alk Phos (test code = Alk Phos) 131 39-136 [facility]2019-07-09 21:46:00 Test Item Value Reference Range Interpretation Comments Bili Total (test code = Bili Total) 0.5 0.2-1.3 [facility]2019-07-09 21:46:00 Test Item Value Reference Range Interpretation Comments Glucose Lvl (test code = Glucose Lvl) 340 70-99 [facility]2019-07-09 21:46:00 Test Item Value Reference Range Interpretation Comments BUN (test code = BUN) 18 7-22 [facility]2019-07-09 21:46:00 Test Item Value Reference Range Interpretation Comments Creatinine Lvl (test code = Creatinine 0.93 0.50-1.40 Lvl) [facility]2019-07-09 21:46:00 Test Item Value Reference Range Interpretation Comments Albumin Lvl (test code = Albumin Lvl) 3.6 3.5-5.0 [facility]2019-07-09 21:46:00 Test Item Value Reference Range Interpretation Comments ALT (test code = ALT) 35 See_Comment [Auto mated message] The system which ge nerated this result transmit bright reference range : <=65. The reference range was not used to interpr et this result as candice l/abnormal. [facility]2019-07-09 21:46:00 Test Item Value Reference Range Interpretation Comments CO2 (test code = CO2) 28 24-32 [facility]2019-07-09 21:46:00 Test Item Value Reference Range Interpretation Comments Calcium Lvl (test code = Calcium Lvl) 10.7 8.5-10.5 [facility]2019-07-09 21:46:00 Test Item Value Reference Range Interpretation Comments Total Protein (test code = Total 7.7 6.4-8.4 Protein) [facility]2019-07-09 21:46:00 Test Item Value Reference Range Interpretation Comments Sodium Lvl (test code = Sodium Lvl) 134 135-145 [facility]2019-07-09 21:46:00 Test Item Value Reference Range Interpretation Comments Chloride Lvl (test code = Chloride Lvl) 101 95-109 [facility]2019-07-09 21:46:00 Test Item Value Reference Range Interpretation Comments Potassium Lvl (test code = Potassium 4.2 3.5-5.1 Lvl) [facility]2019-07-09 21:46:00 Test Item Value Reference Range Interpretation Comments A/G Ratio (test code = A/G Ratio) 0.9 1 0.7-1.6 [facility]2019-07-09 21:46:00 Test Item Value Reference Range Interpretation Comments Globulin (test code = Globulin) 4.1 2.7-4.2 [facility]2019-07-09 21:46:00 Test Item Value Reference Range Interpretation Comments AGAP (test code = AGAP) 9.2 10.0-20.0 [facility]2019-07-09 21:46:00 Test Item Value Reference Range Interpretation Comments B/C Ratio (test code = B/C Ratio) 19 1 6-25 [facility]2019-07-09 21:46:00 Test Item Value Reference Range Interpretation Comments Lipase Lvl (test code = Lipase Lvl) 131 73-393 [facility] CenterBszclzjRNYLBBPDGO6485-68-80 21:46:00 Test Item Value Reference Range Interpretation Comments Basophils # (test code 0.1 See_Comment [Aut omated message] The = Basophils #) system which generated this result tra nsmitted reference range : <=0.2. The reference r chase was not used to int erpret this result as normal/abnormal . [facility] CenterDrnjqruCAWBMLGCKF7988-09-78 21:46:00 Test Item Value Reference Range Interpretation Comments Eosinophils # (test code 0.1 See_Comment [A utomated message] The = Eosinophils #) system whic h generated this result tra nsmitted reference range : <=0.5. The reference r chase was not used to int erpret this result as normal/abnormal . [facility] CenterHzufrpuWXZGTKOZZT6746-13-00 21:46:00 Test Item Value Reference Range Interpretation Comments Monocytes # (test code 0.4 See_Comment [Aut omated message] The = Monocytes #) system which generated this result tra nsmitted reference range : <=0.8. The reference r chase was not used to int erpret this result as normal/abnormal . [facility] CenterVmmyawmLHRQIHSFEX1483-97-54 21:46:00 Test Item Value Reference Range Interpretation Comments Lymphocytes # (test code = Lymphocytes 1.8 1.0-5.5 #) [facility] CenterNceebmkUNYNPAPATN2406-68-63 21:46:00 Test Item Value Reference Range Interpretation Comments Neutrophils # (test code = Neutrophils 4.6 1.5-8.1 #) [facility] CenterRxecuycTBNQBKBCGY2688-70-03 21:46:00 Test Item Value Reference Range Interpretation Comments Basophils (test code = 0.6 See_Comment [Aut omated message] The Basophils) system which ge nerated this result tra nsmitted reference range : <=1.0. The reference r chase was not used to int erpret this result as normal/abnormal . [facility] CenterJkeizkgWEBBFBBJZZ2786-52-65 21:46:00 Test Item Value Reference Range Interpretation Comments Eosinophils (test code = 0.9 See_Comment [A utomated message] The Eosinophils) system which ge nerated this result tra nsmitted reference range : <=4.0. The reference r chase was not used to int erpret this result as normal/abnormal . [facility] CenterJhhpwloBAOIFDPTAE0897-12-36 21:46:00 Test Item Value Reference Range Interpretation Comments Monocytes (test code = Monocytes) 6.2 2.0-12.0 [facility] CenterUeudcrhWOQZMNIJJY3071-40-45 21:46:00 Test Item Value Reference Range Interpretation Comments Lymphocytes (test code = Lymphocytes) 25.4 20.0-40.0 [facility] CenterWifciluZYOCCRQXOI4940-09-61 21:46:00 Test Item Value Reference Range Interpretation Comments Segs (test code = Segs) 66.9 45.0-75.0 [facility] CenterPrkemowISIKJJZIGF8737-03-87 21:46:00 Test Item Value Reference Range Interpretation Comments Platelet (test code = Platelet) 277 133-450 [facility] CenterUjlbikdLHTLTZBUBM7924-64-18 21:46:00 Test Item Value Reference Range Interpretation Comments MPV (test code = MPV) 9.5 7.4-10.4 [facility] CenterNlexnahJPUGZOFKMN2158-33-74 21:46:00 Test Item Value Reference Range Interpretation Comments MCHC (test code = MCHC) 35.4 32.0-36.0 [facility] CenterVygpnikETUCSBKJPC9515-84-55 21:46:00 Test Item Value Reference Range Interpretation Comments RDW (test code = RDW) 13.2 11.5-14.5 [facility] CenterNilmgakGATXLUBXMM6193-22-46 21:46:00 Test Item Value Reference Range Interpretation Comments MCV (test code = MCV) 95.2 80.0-98.0 [facility] CenterJvdpdkaWBJEGDJQYI4323-21-88 21:46:00 Test Item Value Reference Range Interpretation Comments MCH (test code = MCH) 33.8 pg 27.0-31.0 [facility] CenterEimahitTBHCPYIPJO1772-49-58 21:46:00 Test Item Value Reference Range Interpretation Comments Hgb (test code = Hgb) 16.8 12.0-16.0 [facility] CenterZpvuytcSLGMATIBHG1091-06-83 21:46:00 Test Item Value Reference Range Interpretation Comments Hct (test code = Hct) 47.4 36.0-48.0 [facility] CenterFkahvxeAFKQWHHQLC0678-78-15 21:46:00 Test Item Value Reference Range Interpretation Comments RBC (test code = RBC) 4.98 4.20-5.40 [facility] CenterKmnuerkGMSUITIYLT4093-70-21 21:46:00 Test Item Value Reference Range Interpretation Comments WBC (test code = WBC) 6.9 3.7-10.4 [facility] CenterZodzxlxQCEXFQMYUW2147-97-45 21:46:00 Test Item Value Reference Range Interpretation Comments PTT (test code = PTT) 27.0 s 22.9-35.8 [facility] CenterKdgpyjcMPKYFLYOGG1412-30-10 21:46:00 Test Item Value Reference Range Interpretation Comments INR (test code = INR) 0.97 1 0.85-1.17 [facility] CenterItpbsxqYPUOOLSSRR2660-81-65 21:46:00 Test Item Value Reference Range Interpretation Comments PT (test code = PT) 12.7 s 12.0-14.7 [facility]2019-07-09 21:46:00 Test Item Value Reference Range Interpretation Comments UA Nitrite (test code Negative (01/03/19 4:46 = UA Nitrite) PM) [facility] AND [id number] 21:46:00 Test Item Value Reference Range Interpretation Comments UA Leuk Est (test code Small *ABN*(01/03/19 4:46 = UA Leuk Est) PM) [facility] AND [id number] 21:46:00 Test Item Value Reference Range Interpretation Comments UA Protein (test code = UA Protein) 100 mg/dL [facility] AND [id number] 21:46:00 Test Item Value Reference Range Interpretation Comments UA pH (test code = UA pH) 6.0 1 5.0-8.0 [facility] AND [id number] 21:46:00 Test Item Value Reference Range Interpretation Comments UA Mucus (test code = UA Mucus) Few /LPF [facility] AND [id number] 21:46:00 Test Item Value Reference Range Interpretation Comments UA Blood (test code = Negative (01/03/19 4:46 UA Blood) PM) [facility] AND [id number] 21:46:00 Test Item Value Reference Range Interpretation Comments UA Bili (test code = Negative *NA*(01/03/19 UA Bili) 4:46 PM) [facility] AND [id number] 21:46:00 Test Item Value Reference Range Interpretation Comments UA Hyal Cast (test 1 See_Comment [Automat ed message] The code = UA Hyal Cast) system which generated this result transmit bright reference range : <=2. The reference range was not used to interpr et this result as candice l/abnormal. [facility] AND [id number] 21:46:00 Test Item Value Reference Range Interpretation Comments UA WBC (test code = 7 See_Comment [Automa bright message] The UA WBC) system which ge nerated this result transmit bright reference range : <=5. The reference range was not used to interpr et this result as candice l/abnormal. [facility] AND [id number] 21:46:00 Test Item Value Reference Range Interpretation Comments UA RBC (test code = 13 See_Comment [Automa bright message] The UA RBC) system which ge nerated this result transmit bright reference range : <=2. The reference range was not used to interpr et this result as candice l/abnormal. [facility] AND [id number] 21:46:00 Test Item Value Reference Range Interpretation Comments UA Sq Epi (test code = UA Sq Epi) Many /LPF [facility] AND [id number] 21:46:00 Test Item Value Reference Range Interpretation Comments UA Urobilinogen (test code = UA <=1.0 mg/dL 0.1-1.0 Urobilinogen) [facility] AND [id number] 21:46:00 Test Item Value Reference Range Interpretation Comments UA Bradford Yeast (test code = UA Bradford Few /HPF Yeast) [facility] AND [id number] 21:46:00 Test Item Value Reference Range Interpretation Comments UA Glucose (test code = UA Glucose) 500 mg/dL [facility] AND [id number] 21:46:00 Test Item Value Reference Range Interpretation Comments UA Ketones (test code = UA Negative mg/dL Ketones) [facility] AND [id number] 21:46:00 Test Item Value Reference Range Interpretation Comments UA Color (test code = Yellow *NA*(01/03/19 4:46 UA Color) PM) [facility] AND [id number] 21:46:00 Test Item Value Reference Range Interpretation Comments UA Turbidity (test code Slight *ABN*(01/03/19 = UA Turbidity) 4:46 PM) [facility] AND [id number] 21:46:00 Test Item Value Reference Range Interpretation Comments UA Spec Grav (test code = UA Spec 1.027 [address] Grav) [facility] [id number] 21:46:00 Test Item Value Reference Range Interpretation Comments Procalcitonin Lvl <0.05 ng/mL See_Comment [Automate d message] (test code = The system whic h Procalcitonin Lvl) generated this result transmit bright reference range : <=0.10. The reference range was not used to interpret this result as normal/abnormal . [facility] [facility] [id number] 21:46:00 Test Item Value Reference Range Interpretation Comments Lactic Acid Lvl (test code = Lactic 1.6 0.5-2.2 Acid Lvl) [facility] [id number] 21:46:00 Test Item Value Reference Range Interpretation Comments eGFR (test code = eGFR) 68 [facility]2019-07-09 21:46:00 Test Item Value Reference Range Interpretation Comments AST (test code = AST) 21 See_Comment [Auto mated message] The system which ge nerated this result transmit bright reference range : <=37. The reference range was not used to interpr et this result as candice l/abnormal. [facility]2019-07-09 21:46:00 Test Item Value Reference Range Interpretation Comments Alk Phos (test code = Alk Phos) 131 39-136 [facility]2019-07-09 21:46:00 Test Item Value Reference Range Interpretation Comments Bili Total (test code = Bili Total) 0.5 0.2-1.3 [facility]2019-07-09 21:46:00 Test Item Value Reference Range Interpretation Comments Glucose Lvl (test code = Glucose Lvl) 340 70-99 [facility]2019-07-09 21:46:00 Test Item Value Reference Range Interpretation Comments BUN (test code = BUN) 18 7-22 [facility]2019-07-09 21:46:00 Test Item Value Reference Range Interpretation Comments Creatinine Lvl (test code = Creatinine 0.93 0.50-1.40 Lvl) [facility]2019-07-09 21:46:00 Test Item Value Reference Range Interpretation Comments Albumin Lvl (test code = Albumin Lvl) 3.6 3.5-5.0 [facility]2019-07-09 21:46:00 Test Item Value Reference Range Interpretation Comments ALT (test code = ALT) 35 See_Comment [Auto mated message] The system which ge nerated this result transmit bright reference range : <=65. The reference range was not used to interpr et this result as candice l/abnormal. [facility]2019-07-09 21:46:00 Test Item Value Reference Range Interpretation Comments CO2 (test code = CO2) 28 24-32 [facility]2019-07-09 21:46:00 Test Item Value Reference Range Interpretation Comments Calcium Lvl (test code = Calcium Lvl) 10.7 8.5-10.5 [facility]2019-07-09 21:46:00 Test Item Value Reference Range Interpretation Comments Total Protein (test code = Total 7.7 6.4-8.4 Protein) [facility]2019-07-09 21:46:00 Test Item Value Reference Range Interpretation Comments Sodium Lvl (test code = Sodium Lvl) 134 135-145 [facility]2019-07-09 21:46:00 Test Item Value Reference Range Interpretation Comments Chloride Lvl (test code = Chloride Lvl) 101 95-109 [facility]2019-07-09 21:46:00 Test Item Value Reference Range Interpretation Comments Potassium Lvl (test code = Potassium 4.2 3.5-5.1 Lvl) [facility]2019-07-09 21:46:00 Test Item Value Reference Range Interpretation Comments A/G Ratio (test code = A/G Ratio) 0.9 1 0.7-1.6 [place] [id number] 21:46:00 Test Item Value Reference Range Interpretation Comments Globulin (test code = Globulin) 4.1 2.7-4.2 [facility]2019-07-09 21:46:00 Test Item Value Reference Range Interpretation Comments AGAP (test code = AGAP) 9.2 10.0-20.0 [facility]2019-07-09 21:46:00 Test Item Value Reference Range Interpretation Comments B/C Ratio (test code = B/C Ratio) 19 1 6-25 [place] 159249-07-09 21:46:00 Test Item Value Reference Range Interpretation Comments Lipase Lvl (test code = Lipase Lvl) 131 73-393 [facility]XyosovmSPNYNQIBNP8417-06-45 21:46:00 Test Item Value Reference Range Interpretation Comments Basophils # (test code 0.1 See_Comment [Aut omated message] The = Basophils #) system which generated this result tra nsmitted reference range : <=0.2. The reference r chase was not used to int erpret this result as normal/abnormal . [facility] CenterMkbixjiTQGITOGULG0295-57-78 21:46:00 Test Item Value Reference Range Interpretation Comments Eosinophils # (test code 0.1 See_Comment [A utomated message] The = Eosinophils #) system whic h generated this result tra nsmitted reference range : <=0.5. The reference r chase was not used to int erpret this result as normal/abnormal . [facility] CenterMbqmiqfLWMEAIBGAQ6525-81-26 21:46:00 Test Item Value Reference Range Interpretation Comments Monocytes # (test code 0.4 See_Comment [Aut omated message] The = Monocytes #) system which generated this result tra nsmitted reference range : <=0.8. The reference r chase was not used to int erpret this result as normal/abnormal . [facility] CenterRgdeeqhDACSUQWFMK2282-95-35 21:46:00 Test Item Value Reference Range Interpretation Comments Lymphocytes # (test code = Lymphocytes 1.8 1.0-5.5 #) [facility] CenterDxibjrzEAGTSBIJLF4554-75-72 21:46:00 Test Item Value Reference Range Interpretation Comments Neutrophils # (test code = Neutrophils 4.6 1.5-8.1 #) [facility] CenterHmwixhjBJIVUKQHCV3959-11-42 21:46:00 Test Item Value Reference Range Interpretation Comments Basophils (test code = 0.6 See_Comment [Aut omated message] The Basophils) system which ge nerated this result tra nsmitted reference range : <=1.0. The reference r chase was not used to int erpret this result as normal/abnormal . [facility] CenterJiwesvyICQWYANCPJ6682-98-62 21:46:00 Test Item Value Reference Range Interpretation Comments Eosinophils (test code = 0.9 See_Comment [A utomated message] The Eosinophils) system which ge nerated this result tra nsmitted reference range : <=4.0. The reference r chase was not used to int erpret this result as normal/abnormal . [facility] CenterZysjatnUQPWIBXLOY8159-30-94 21:46:00 Test Item Value Reference Range Interpretation Comments Monocytes (test code = Monocytes) 6.2 2.0-12.0 [facility] Cent[id number] 21:46:00 Test Item Value Reference Range Interpretation Comments Lymphocytes (test code = Lymphocytes) 25.4 20.0-40.0 [facility] CenterWwdfsiqNFZQWVBMEE6123-18-33 21:46:00 Test Item Value Reference Range Interpretation Comments Segs (test code = Segs) 66.9 45.0-75.0 [facility] CenterRajooqwLLVPXRBYCR4949-84-12 21:46:00 Test Item Value Reference Range Interpretation Comments Platelet (test code = Platelet) 277 133-450 [facility] CenterNxykxcdYQWBGGXBEI3097-18-03 21:46:00 Test Item Value Reference Range Interpretation Comments MPV (test code = MPV) 9.5 7.4-10.4 [facility] CenterNhlgdkhUGJFSXZZGT4187-42-20 21:46:00 Test Item Value Reference Range Interpretation Comments MCHC (test code = MCHC) 35.4 32.0-36.0 [facility] CenterXmojnpvAGRIDDGXCG6045-53-44 21:46:00 Test Item Value Reference Range Interpretation Comments RDW (test code = RDW) 13.2 11.5-14.5 [facility] CenterJzljjfrJWIYJABCUK7707-04-42 21:46:00 Test Item Value Reference Range Interpretation Comments MCV (test code = MCV) 95.2 80.0-98.0 [facility] CenterWmjlwhoYEMTMXEPCM3468-63-14 21:46:00 Test Item Value Reference Range Interpretation Comments MCH (test code = MCH) 33.8 pg 27.0-31.0 [facility] CenterAfgyspgLWQOWDLQGT3906-28-85 21:46:00 Test Item Value Reference Range Interpretation Comments Hgb (test code = Hgb) 16.8 12.0-16.0 [facility] CenterTlbkolyGXFAQVWIFX1381-19-93 21:46:00 Test Item Value Reference Range Interpretation Comments Hct (test code = Hct) 47.4 36.0-48.0 [facility] CenterBkrizyuZQPGZCFFJQ7272-53-60 21:46:00 Test Item Value Reference Range Interpretation Comments RBC (test code = RBC) 4.98 4.20-5.40 [facility] CenterKqoktkuAGADTQWCBR7260-46-17 21:46:00 Test Item Value Reference Range Interpretation Comments WBC (test code = WBC) 6.9 3.7-10.4 [facility] CenterZsirxhxVUAZTGZUCZ4463-15-69 21:46:00 Test Item Value Reference Range Interpretation Comments PTT (test code = PTT) 27.0 s 22.9-35.8 [facility] CenterRwhrchjYCXCVJGOCK1030-54-18 21:46:00 Test Item Value Reference Range Interpretation Comments INR (test code = INR) 0.97 1 0.85-1.17 [facility] CenterPbamoyqHXFRTSCOQW4365-67-79 21:46:00 Test Item Value Reference Range Interpretation Comments PT (test code = PT) 12.7 s 12.0-14.7 [facility]2019-07-09 21:46:00 Test Item Value Reference Range Interpretation Comments UA Nitrite (test code Negative (01/03/19 4:46 = UA Nitrite) PM) [facility] AND [id number] 21:46:00 Test Item Value Reference Range Interpretation Comments UA Leuk Est (test code Small *ABN*(01/03/19 4:46 = UA Leuk Est) PM) [facility] AND [id number] 21:46:00 Test Item Value Reference Range Interpretation Comments UA Protein (test code = UA Protein) 100 mg/dL [facility] AND [id number] 21:46:00 Test Item Value Reference Range Interpretation Comments UA pH (test code = UA pH) 6.0 1 5.0-8.0 [facility] AND [id number] 21:46:00 Test Item Value Reference Range Interpretation Comments UA Mucus (test code = UA Mucus) Few /LPF [facility] AND [id number] 21:46:00 Test Item Value Reference Range Interpretation Comments UA Blood (test code = Negative (01/03/19 4:46 UA Blood) PM) [facility] AND [id number] 21:46:00 Test Item Value Reference Range Interpretation Comments UA Bili (test code = Negative *NA*(01/03/19 UA Bili) 4:46 PM) [facility] AND [id number] 21:46:00 Test Item Value Reference Range Interpretation Comments UA Hyal Cast (test 1 See_Comment [Automat ed message] The code = UA Hyal Cast) system which generated this result transmit bright reference range : <=2. The reference range was not used to interpr et this result as candice l/abnormal. [facility] AND [id number] 21:46:00 Test Item Value Reference Range Interpretation Comments UA WBC (test code = 7 See_Comment [Automa bright message] The UA WBC) system which ge nerated this result transmit bright reference range : <=5. The reference range was not used to interpr et this result as candice l/abnormal. [facility] AND [id number] 21:46:00 Test Item Value Reference Range Interpretation Comments UA RBC (test code = 13 See_Comment [Automa bright message] The UA RBC) system which ge nerated this result transmit bright reference range : <=2. The reference range was not used to interpr et this result as candice l/abnormal. [facility] AND [id number] 21:46:00 Test Item Value Reference Range Interpretation Comments UA Sq Epi (test code = UA Sq Epi) Many /LPF [facility] AND [id number] 21:46:00 Test Item Value Reference Range Interpretation Comments UA Urobilinogen (test code = UA <=1.0 mg/dL 0.1-1.0 Urobilinogen) [facility] AND [id number] 21:46:00 Test Item Value Reference Range Interpretation Comments UA Bradford Yeast (test code = UA Bradford Few /HPF Yeast) [facility] AND [id number] 21:46:00 Test Item Value Reference Range Interpretation Comments UA Glucose (test code = UA Glucose) 500 mg/dL [facility] AND [id number] 21:46:00 Test Item Value Reference Range Interpretation Comments UA Ketones (test code = UA Negative mg/dL Ketones) [facility] AND [id number] 21:46:00 Test Item Value Reference Range Interpretation Comments UA Color (test code = Yellow *NA*(01/03/19 4:46 UA Color) PM) [facility] AND [id number] 21:46:00 Test Item Value Reference Range Interpretation Comments UA Turbidity (test code Slight *ABN*(01/03/19 = UA Turbidity) 4:46 PM) [facility] AND [id number] 21:46:00 Test Item Value Reference Range Interpretation Comments UA Spec Grav (test code = UA Spec 1.027 1 Grav) [facility] [id number] 21:46:00 Test Item Value Reference Range Interpretation Comments Procalcitonin Lvl <0.05 ng/mL See_Comment [Automate d message] (test code = The system whic h Procalcitonin Lvl) generated this result transmit bright reference range : <=0.10. The reference range was not used to interpret this result as normal/abnormal . [facility] [id number] 21:46:00 Test Item Value Reference Range Interpretation Comments Lactic Acid Lvl (test code = Lactic 1.6 0.5-2.2 Acid Lvl) [facility]2019-07-09 21:46:00 Test Item Value Reference Range Interpretation Comments eGFR (test code = eGFR) 68 [facility]2019-07-09 21:46:00 Test Item Value Reference Range Interpretation Comments AST (test code = AST) 21 See_Comment [Auto mated message] The system which ge nerated this result transmit bright reference range : <=37. The reference range was not used to interpr et this result as candice l/abnormal. [facility]2019-07-09 21:46:00 Test Item Value Reference Range Interpretation Comments Alk Phos (test code = Alk Phos) 131 39-136 [facility]2019-07-09 21:46:00 Test Item Value Reference Range Interpretation Comments Bili Total (test code = Bili Total) 0.5 0.2-1.3 [facility]2019-07-09 21:46:00 Test Item Value Reference Range Interpretation Comments Glucose Lvl (test code = Glucose Lvl) 340 70-99 [facility]2019-07-09 21:46:00 Test Item Value Reference Range Interpretation Comments BUN (test code = BUN) 18 7-22 [facility]2019-07-09 21:46:00 Test Item Value Reference Range Interpretation Comments Creatinine Lvl (test code = Creatinine 0.93 0.50-1.40 Lvl) [facility]2019-07-09 21:46:00 Test Item Value Reference Range Interpretation Comments Albumin Lvl (test code = Albumin Lvl) 3.6 3.5-5.0 [facility]2019-07-09 21:46:00 Test Item Value Reference Range Interpretation Comments ALT (test code = ALT) 35 See_Comment [Auto mated message] The system which ge nerated this result transmit bright reference range : <=65. The reference range was not used to interpr et this result as candice l/abnormal. [facility]2019-07-09 21:46:00 Test Item Value Reference Range Interpretation Comments CO2 (test code = CO2) 28 24-32 [facility]2019-07-09 21:46:00 Test Item Value Reference Range Interpretation Comments Calcium Lvl (test code = Calcium Lvl) 10.7 8.5-10.5 [facility]2019-07-09 21:46:00 Test Item Value Reference Range Interpretation Comments Total Protein (test code = Total 7.7 6.4-8.4 Protein) [facility]2019-07-09 21:46:00 Test Item Value Reference Range Interpretation Comments Sodium Lvl (test code = Sodium Lvl) 134 135-145 [facility]2019-07-09 21:46:00 Test Item Value Reference Range Interpretation Comments Chloride Lvl (test code = Chloride Lvl) 101 95-109 [facility]2019-07-09 21:46:00 Test Item Value Reference Range Interpretation Comments Potassium Lvl (test code = Potassium 4.2 3.5-5.1 Lvl) [facility]2019-07-09 21:46:00 Test Item Value Reference Range Interpretation Comments A/G Ratio (test code = A/G Ratio) 0.9 1 0.7-1.6 [facility]2019-07-09 21:46:00 Test Item Value Reference Range Interpretation Comments Globulin (test code = Globulin) 4.1 2.7-4.2 [facility]2019-07-09 21:46:00 Test Item Value Reference Range Interpretation Comments AGAP (test code = AGAP) 9.2 10.0-20.0 [facility]2019-07-09 21:46:00 Test Item Value Reference Range Interpretation Comments B/C Ratio (test code = B/C Ratio) 19 1 6-25 [facility]2019-07-09 21:46:00 Test Item Value Reference Range Interpretation Comments Lipase Lvl (test code = Lipase Lvl) 131 73-393 [facility] Cent[id number] 21:46:00 Test Item Value Reference Range Interpretation Comments Basophils # (test code 0.1 See_Comment [Aut omated message] The = Basophils #) system which generated this result tra nsmitted reference range : <=0.2. The reference r chase was not used to int erpret this result as normal/abnormal . [facility] CenterCvlenxuVSKFRHPCBZ4936-67-37 21:46:00 Test Item Value Reference Range Interpretation Comments Eosinophils # (test code 0.1 See_Comment [A utomated message] The = Eosinophils #) system whic h generated this result tra nsmitted reference range : <=0.5. The reference r chase was not used to int erpret this result as normal/abnormal . [facility] C[id number] 21:46:00 Test Item Value Reference Range Interpretation Comments Monocytes # (test code 0.4 See_Comment [Aut omated message] The = Monocytes #) system which generated this result tra nsmitted reference range : <=0.8. The reference r chase was not used to int erpret this result as normal/abnormal . [facility] CenterHlezoniZQBFZXCFSE5572-62-09 21:46:00 Test Item Value Reference Range Interpretation Comments Lymphocytes # (test code = Lymphocytes 1.8 1.0-5.5 #) [facility] CenterWecjivbMDKSQGMHXV8058-51-45 21:46:00 Test Item Value Reference Range Interpretation Comments Neutrophils # (test code = Neutrophils 4.6 1.5-8.1 #) [facility] [id number] 21:46:00 Test Item Value Reference Range Interpretation Comments Basophils (test code = 0.6 See_Comment [Aut omated message] The Basophils) system which ge nerated this result tra nsmitted reference range : <=1.0. The reference r chase was not used to int erpret this result as normal/abnormal . [facility] CenterJdbvupaLEMEYIAGJQ6284-84-01 21:46:00 Test Item Value Reference Range Interpretation Comments Eosinophils (test code = 0.9 See_Comment [A utomated message] The Eosinophils) system which ge nerated this result tra nsmitted reference range : <=4.0. The reference r chase was not used to int erpret this result as normal/abnormal . [facility] CenterYtvgaspWNJDFBNQFC7857-32-01 21:46:00 Test Item Value Reference Range Interpretation Comments Monocytes (test code = Monocytes) 6.2 2.0-12.0 [facility] Cent[id number] 21:46:00 Test Item Value Reference Range Interpretation Comments Lymphocytes (test code = Lymphocytes) 25.4 20.0-40.0 [facility] CenterFoxlqbmZAXOGQGLZO3291-09-25 21:46:00 Test Item Value Reference Range Interpretation Comments Segs (test code = Segs) 66.9 45.0-75.0 [facility] CenterQbhcucmHKCRBGRMIL9632-42-99 21:46:00 Test Item Value Reference Range Interpretation Comments Platelet (test code = Platelet) 277 133-450 [facility] CenterMbtmpkjABHNUVIDYX8726-89-11 21:46:00 Test Item Value Reference Range Interpretation Comments MPV (test code = MPV) 9.5 7.4-10.4 [facility] CenterHmngubbUIHFCLLQDA9888-47-29 21:46:00 Test Item Value Reference Range Interpretation Comments MCHC (test code = MCHC) 35.4 32.0-36.0 [facility] CenterLsfrjccGRUILJZIPA0471-29-17 21:46:00 Test Item Value Reference Range Interpretation Comments RDW (test code = RDW) 13.2 11.5-14.5 [facility] CenterHninfmvEETHRVBFIK7746-27-25 21:46:00 Test Item Value Reference Range Interpretation Comments MCV (test code = MCV) 95.2 80.0-98.0 [facility] CenterUjdrnwwEEEXLPXFSC0527-17-30 21:46:00 Test Item Value Reference Range Interpretation Comments MCH (test code = MCH) 33.8 pg 27.0-31.0 [facility] CenterPakirwxIRNNVYTWLO9715-49-23 21:46:00 Test Item Value Reference Range Interpretation Comments Hgb (test code = Hgb) 16.8 12.0-16.0 [facility] CenterAybhhdfCIANGPMOTF2215-71-21 21:46:00 Test Item Value Reference Range Interpretation Comments Hct (test code = Hct) 47.4 36.0-48.0 [facility] CenterSrtzmozMRLUBVASXR7899-02-32 21:46:00 Test Item Value Reference Range Interpretation Comments RBC (test code = RBC) 4.98 4.20-5.40 [facility] CenterBrsbylrSVFTBSOWSH5561-23-42 21:46:00 Test Item Value Reference Range Interpretation Comments WBC (test code = WBC) 6.9 3.7-10.4 [facility] CenterUnyjgheYVDJYBVOPG4994-14-80 21:46:00 Test Item Value Reference Range Interpretation Comments PTT (test code = PTT) 27.0 s 22.9-35.8 [facility] CenterNxhwxbcOOPPZZNZED0514-17-68 21:46:00 Test Item Value Reference Range Interpretation Comments INR (test code = INR) 0.97 1 0.85-1.17 [facility] CenterDrjhlwlILDQODETNY0301-66-50 21:46:00 Test Item Value Reference Range Interpretation Comments PT (test code = PT) 12.7 s 12.0-14.7 [facility] AND [id number] 21:46:00 Test Item Value Reference Range Interpretation Comments UA Nitrite (test code Negative (01/03/19 4:46 = UA Nitrite) PM) [facility] AND [id number] 21:46:00 Test Item Value Reference Range Interpretation Comments UA Leuk Est (test code Small *ABN*(01/03/19 4:46 = UA Leuk Est) PM) [facility] AND [id number] 21:46:00 Test Item Value Reference Range Interpretation Comments UA Protein (test code = UA Protein) 100 mg/dL [facility] AND [id number] 21:46:00 Test Item Value Reference Range Interpretation Comments UA pH (test code = UA pH) 6.0 1 5.0-8.0 [facility] AND [id number] 21:46:00 Test Item Value Reference Range Interpretation Comments UA Mucus (test code = UA Mucus) Few /LPF [facility] AND [id number] 21:46:00 Test Item Value Reference Range Interpretation Comments UA Blood (test code = Negative (01/03/19 4:46 UA Blood) PM) [facility] AND [id number] 21:46:00 Test Item Value Reference Range Interpretation Comments UA Bili (test code = Negative *NA*(01/03/19 UA Bili) 4:46 PM) [facility] AND [id number] 21:46:00 Test Item Value Reference Range Interpretation Comments UA Hyal Cast (test 1 See_Comment [Automat ed message] The code = UA Hyal Cast) system which generated this result transmit bright reference range : <=2. The reference range was not used to interpr et this result as candice l/abnormal. [facility] AND [id number] 21:46:00 Test Item Value Reference Range Interpretation Comments UA WBC (test code = 7 See_Comment [Automa bright message] The UA WBC) system which ge nerated this result transmit bright reference range : <=5. The reference range was not used to interpr et this result as candice l/abnormal. [facility] AND [id number] 21:46:00 Test Item Value Reference Range Interpretation Comments UA RBC (test code = 13 See_Comment [Automa bright message] The UA RBC) system which ge nerated this result transmit bright reference range : <=2. The reference range was not used to interpr et this result as candice l/abnormal. [facility] AND [id number] 21:46:00 Test Item Value Reference Range Interpretation Comments UA Sq Epi (test code = UA Sq Epi) Many /LPF [facility] [facility] AND [id number] 21:46:00 Test Item Value Reference Range Interpretation Comments UA Urobilinogen (test code = UA <=1.0 mg/dL 0.1-1.0 Urobilinogen) [facility] AND [id number] 21:46:00 Test Item Value Reference Range Interpretation Comments UA Bradford Yeast (test code = UA Bradford Few /HPF Yeast) [facility] AND [id number] 21:46:00 Test Item Value Reference Range Interpretation Comments UA Glucose (test code = UA Glucose) 500 mg/dL [facility] AND [id number] 21:46:00 Test Item Value Reference Range Interpretation Comments UA Ketones (test code = UA Negative mg/dL Ketones) [facility] AND [id number] 21:46:00 Test Item Value Reference Range Interpretation Comments UA Color (test code = Yellow *NA*(01/03/19 4:46 UA Color) PM) [facility] AND [id number] 21:46:00 Test Item Value Reference Range Interpretation Comments UA Turbidity (test code Slight *ABN*(01/03/19 = UA Turbidity) 4:46 PM) [facility] AND [id number] 21:46:00 Test Item Value Reference Range Interpretation Comments UA Spec Grav (test code = UA Spec 1.027 [address]) [facility] [id number] 21:46:00 Test Item Value Reference Range Interpretation Comments Procalcitonin Lvl <0.05 ng/mL See_Comment [Automate d message] (test code = The system whic h Procalcitonin Lvl) generated this result transmit bright reference range : <=0.10. The reference range was not used to interpret this result as normal/abnormal . [facility]2019-07-09 21:46:00 Test Item Value Reference Range Interpretation Comments Lactic Acid Lvl (test code = Lactic 1.6 0.5-2.2 Acid Lvl) [facility]2019-07-09 21:46:00 Test Item Value Reference Range Interpretation Comments eGFR (test code = eGFR) 68 [facility]2019-07-09 21:46:00 Test Item Value Reference Range Interpretation Comments AST (test code = AST) 21 See_Comment [Auto mated message] The system which ge nerated this result transmit bright reference range : <=37. The reference range was not used to interpr et this result as candice l/abnormal. [facility]2019-07-09 21:46:00 Test Item Value Reference Range Interpretation Comments Alk Phos (test code = Alk Phos) 131 39-136 [facility]2019-07-09 21:46:00 Test Item Value Reference Range Interpretation Comments Bili Total (test code = Bili Total) 0.5 0.2-1.3 [facility]2019-07-09 21:46:00 Test Item Value Reference Range Interpretation Comments Glucose Lvl (test code = Glucose Lvl) 340 70-99 [facility]2019-07-09 21:46:00 Test Item Value Reference Range Interpretation Comments BUN (test code = BUN) 18 7-22 [facility]2019-07-09 21:46:00 Test Item Value Reference Range Interpretation Comments Creatinine Lvl (test code = Creatinine 0.93 0.50-1.40 Lvl) [facility]2019-07-09 21:46:00 Test Item Value Reference Range Interpretation Comments Albumin Lvl (test code = Albumin Lvl) 3.6 3.5-5.0 [facility]2019-07-09 21:46:00 Test Item Value Reference Range Interpretation Comments ALT (test code = ALT) 35 See_Comment [Auto mated message] The system which ge nerated this result transmit bright reference range : <=65. The reference range was not used to interpr et this result as candice l/abnormal. [place] [id number] 21:46:00 Test Item Value Reference Range Interpretation Comments CO2 (test code = CO2) 28 24-32 [facility]2019-07-09 21:46:00 Test Item Value Reference Range Interpretation Comments Calcium Lvl (test code = Calcium Lvl) 10.7 8.5-10.5 [facility]2019-07-09 21:46:00 Test Item Value Reference Range Interpretation Comments Total Protein (test code = Total 7.7 6.4-8.4 Protein) [facility]2019-07-09 21:46:00 Test Item Value Reference Range Interpretation Comments Sodium Lvl (test code = Sodium Lvl) 134 135-145 [facility]2019-07-09 21:46:00 Test Item Value Reference Range Interpretation Comments Chloride Lvl (test code = Chloride Lvl) 101 95-109 [facility]2019-07-09 21:46:00 Test Item Value Reference Range Interpretation Comments Potassium Lvl (test code = Potassium 4.2 3.5-5.1 Lvl) [facility]2019-07-09 21:46:00 Test Item Value Reference Range Interpretation Comments A/G Ratio (test code = A/G Ratio) 0.9 1 0.7-1.6 [facility]2019-07-09 21:46:00 Test Item Value Reference Range Interpretation Comments Globulin (test code = Globulin) 4.1 2.7-4.2 [facility]2019-07-09 21:46:00 Test Item Value Reference Range Interpretation Comments AGAP (test code = AGAP) 9.2 10.0-20.0 [facility]2019-07-09 21:46:00 Test Item Value Reference Range Interpretation Comments B/C Ratio (test code = B/C Ratio) 19 1 6-25 [facility]2019-07-09 21:46:00 Test Item Value Reference Range Interpretation Comments Lipase Lvl (test code = Lipase Lvl) 131 73-393 [facility] CenterYornmqbRKKBPXSPGF4508-87-73 21:46:00 Test Item Value Reference Range Interpretation Comments Basophils # (test code 0.1 See_Comment [Aut omated message] The = Basophils #) system which generated this result tra nsmitted reference range : <=0.2. The reference r chase was not used to int erpret this result as normal/abnormal . [facility] C[id number] 21:46:00 Test Item Value Reference Range Interpretation Comments Eosinophils # (test code 0.1 See_Comment [A utomated message] The = Eosinophils #) system whic h generated this result tra nsmitted reference range : <=0.5. The reference r chase was not used to int erpret this result as normal/abnormal . [facility] CenterFhilzzbQUPKPTJUBA8854-53-92 21:46:00 Test Item Value Reference Range Interpretation Comments Monocytes # (test code 0.4 See_Comment [Aut omated message] The = Monocytes #) system which generated this result tra nsmitted reference range : <=0.8. The reference r chase was not used to int erpret this result as normal/abnormal . [facility] CenterGujitsfMWPJUZTXFY4313-76-79 21:46:00 Test Item Value Reference Range Interpretation Comments Lymphocytes # (test code = Lymphocytes 1.8 1.0-5.5 #) [facility] CenterVqchymuNMVJCWSFTQ4272-44-04 21:46:00 Test Item Value Reference Range Interpretation Comments Neutrophils # (test code = Neutrophils 4.6 1.5-8.1 #) [facility] CenterRtwskejDECCDOLCVH7792-29-59 21:46:00 Test Item Value Reference Range Interpretation Comments Basophils (test code = 0.6 See_Comment [Aut omated message] The Basophils) system which ge nerated this result tra nsmitted reference range : <=1.0. The reference r chase was not used to int erpret this result as normal/abnormal . [facility] CenterUmcsqudUNZOVIUTXM3612-58-64 21:46:00 Test Item Value Reference Range Interpretation Comments Eosinophils (test code = 0.9 See_Comment [A utomated message] The Eosinophils) system which ge nerated this result tra nsmitted reference range : <=4.0. The reference r chase was not used to int erpret this result as normal/abnormal . [facility] CenterGyjpexgVQYLTXVGIJ4079-24-51 21:46:00 Test Item Value Reference Range Interpretation Comments Monocytes (test code = Monocytes) 6.2 2.0-12.0 [facility] CenterSqdngzrSVMNUNDTFL2299-34-10 21:46:00 Test Item Value Reference Range Interpretation Comments Lymphocytes (test code = Lymphocytes) 25.4 20.0-40.0 [facility] CenterEgkbddjZSSBBTABNQ3754-76-26 21:46:00 Test Item Value Reference Range Interpretation Comments Segs (test code = Segs) 66.9 45.0-75.0 [facility] CenterCemvatbFCIQLHUDML1912-79-12 21:46:00 Test Item Value Reference Range Interpretation Comments Platelet (test code = Platelet) 277 133-450 [facility] CenterXhfqejnPQJFEBVDLS7458-67-48 21:46:00 Test Item Value Reference Range Interpretation Comments MPV (test code = MPV) 9.5 7.4-10.4 [facility] Cent[id number] 21:46:00 Test Item Value Reference Range Interpretation Comments MCHC (test code = MCHC) 35.4 32.0-36.0 [facility] CenterSbwdydzFZOLFUAIBW1796-41-30 21:46:00 Test Item Value Reference Range Interpretation Comments RDW (test code = RDW) 13.2 11.5-14.5 [facility] CenterWsobbpcYNKNSWQUCT1663-61-99 21:46:00 Test Item Value Reference Range Interpretation Comments MCV (test code = MCV) 95.2 80.0-98.0 [facility] CenterMpyjrmfMRPYOYTPYC7819-64-47 21:46:00 Test Item Value Reference Range Interpretation Comments MCH (test code = MCH) 33.8 pg 27.0-31.0 [facility] CenterJedbotqVNGNDWMHMF7100-71-94 21:46:00 Test Item Value Reference Range Interpretation Comments Hgb (test code = Hgb) 16.8 12.0-16.0 [facility] CenterRritjqjWDWWESGELA0741-88-41 21:46:00 Test Item Value Reference Range Interpretation Comments Hct (test code = Hct) 47.4 36.0-48.0 [facility] CenterWswiorzXJCNNPUPTV4033-24-09 21:46:00 Test Item Value Reference Range Interpretation Comments RBC (test code = RBC) 4.98 4.20-5.40 [facility] CenterTqmblafCBDYHJNQDU4437-11-91 21:46:00 Test Item Value Reference Range Interpretation Comments WBC (test code = WBC) 6.9 3.7-10.4 [facility] CenterBuoshntARLQOKJNXO5278-69-29 21:46:00 Test Item Value Reference Range Interpretation Comments PTT (test code = PTT) 27.0 s 22.9-35.8 [facility] CenterHmvmfytYYKBWENFSF9615-86-34 21:46:00 Test Item Value Reference Range Interpretation Comments INR (test code = INR) 0.97 1 0.85-1.[address] CenterBswtrseCDWHKJMTGG2963-20-51 21:46:00 Test Item Value Reference Range Interpretation Comments PT (test code = PT) 12.7 s 12.0-14.7 [facility] AND [id number] 21:46:00 Test Item Value Reference Range Interpretation Comments UA Nitrite (test code Negative (01/03/19 4:46 = UA Nitrite) PM) [facility] AND [id number] 21:46:00 Test Item Value Reference Range Interpretation Comments UA Leuk Est (test code Small *ABN*(01/03/19 4:46 = UA Leuk Est) PM) [facility] AND [id number] 21:46:00 Test Item Value Reference Range Interpretation Comments UA Protein (test code = UA Protein) 100 mg/dL [facility] AND [id number] 21:46:00 Test Item Value Reference Range Interpretation Comments UA pH (test code = UA pH) 6.0 1 5.0-8.0 [facility] AND [id number] 21:46:00 Test Item Value Reference Range Interpretation Comments UA Mucus (test code = UA Mucus) Few /LPF [facility] AND [id number] 21:46:00 Test Item Value Reference Range Interpretation Comments UA Blood (test code = Negative (01/03/19 4:46 UA Blood) PM) [facility] AND [id number] 21:46:00 Test Item Value Reference Range Interpretation Comments UA Bili (test code = Negative *NA*(01/03/19 UA Bili) 4:46 PM) [facility] AND [id number] 21:46:00 Test Item Value Reference Range Interpretation Comments UA Hyal Cast (test 1 See_Comment [Automat ed message] The code = UA Hyal Cast) system which generated this result transmit bright reference range : <=2. The reference range was not used to interpr et this result as candice l/abnormal. [facility] AND [id number] 21:46:00 Test Item Value Reference Range Interpretation Comments UA WBC (test code = 7 See_Comment [Automa bright message] The UA WBC) system which ge nerated this result transmit bright reference range : <=5. The reference range was not used to interpr et this result as candice l/abnormal. [facility] [id number] 21:46:00 Test Item Value Reference Range Interpretation Comments UA RBC (test code = 13 See_Comment [Automa bright message] The UA RBC) system which ge nerated this result transmit bright reference range : <=2. The reference range was not used to interpr et this result as candice l/abnormal. [facility] [id number] 21:46:00 Test Item Value Reference Range Interpretation Comments UA Sq Epi (test code = UA Sq Epi) Many /LPF [facility] AND [id number] 21:46:00 Test Item Value Reference Range Interpretation Comments UA Urobilinogen (test code = UA <=1.0 mg/dL 0.1-1.0 Urobilinogen) [facility] AND [id number] 21:46:00 Test Item Value Reference Range Interpretation Comments UA Bradford Yeast (test code = UA Bradford Few /HPF Yeast) [facility] AND [id number] 21:46:00 Test Item Value Reference Range Interpretation Comments UA Glucose (test code = UA Glucose) 500 mg/dL [facility] AND [id number] 21:46:00 Test Item Value Reference Range Interpretation Comments UA Ketones (test code = UA Negative mg/dL Ketones) [facility] AND [id number] 21:46:00 Test Item Value Reference Range Interpretation Comments UA Color (test code = Yellow *NA*(01/03/19 4:46 UA Color) PM) [facility] AND [id number] 21:46:00 Test Item Value Reference Range Interpretation Comments UA Turbidity (test code Slight *ABN*(01/03/19 = UA Turbidity) 4:46 PM) [facility] AND [id number] 21:46:00 Test Item Value Reference Range Interpretation Comments UA Spec Grav (test code = UA Spec 1.027 1 Grav) [facility] [id number] 21:46:00 Test Item Value Reference Range Interpretation Comments Procalcitonin Lvl <0.05 ng/mL See_Comment [Automate d message] (test code = The system whic h Procalcitonin Lvl) generated this result transmit bright reference range : <=0.10. The reference range was not used to interpret this result as normal/abnormal . [facility]2019-07-09 21:46:00 Test Item Value Reference Range Interpretation Comments Lactic Acid Lvl (test code = Lactic 1.6 0.5-2.2 Acid Lvl) [facility]2019-07-09 21:46:00 Test Item Value Reference Range Interpretation Comments eGFR (test code = eGFR) 68 [facility]2019-07-09 21:46:00 Test Item Value Reference Range Interpretation Comments AST (test code = AST) 21 See_Comment [Auto mated message] The system which ge nerated this result transmit bright reference range : <=37. The reference range was not used to interpr et this result as candice l/abnormal. [place] [id number] 21:46:00 Test Item Value Reference Range Interpretation Comments Alk Phos (test code = Alk Phos) 131 39-136 [facility]2019-07-09 21:46:00 Test Item Value Reference Range Interpretation Comments Bili Total (test code = Bili Total) 0.5 0.2-1.3 [facility]2019-07-09 21:46:00 Test Item Value Reference Range Interpretation Comments Glucose Lvl (test code = Glucose Lvl) 340 70-99 [facility]2019-07-09 21:46:00 Test Item Value Reference Range Interpretation Comments BUN (test code = BUN) 18 7-22 [facility]2019-07-09 21:46:00 Test Item Value Reference Range Interpretation Comments Creatinine Lvl (test code = Creatinine 0.93 0.50-1.40 Lvl) [facility]2019-07-09 21:46:00 Test Item Value Reference Range Interpretation Comments Albumin Lvl (test code = Albumin Lvl) 3.6 3.5-5.0 [facility]2019-07-09 21:46:00 Test Item Value Reference Range Interpretation Comments ALT (test code = ALT) 35 See_Comment [Auto mated message] The system which ge nerated this result transmit bright reference range : <=65. The reference range was not used to interpr et this result as candice l/abnormal. [facility]2019-07-09 21:46:00 Test Item Value Reference Range Interpretation Comments CO2 (test code = CO2) 28 24-32 [facility]2019-07-09 21:46:00 Test Item Value Reference Range Interpretation Comments Calcium Lvl (test code = Calcium Lvl) 10.7 8.5-10.5 [facility]2019-07-09 21:46:00 Test Item Value Reference Range Interpretation Comments Total Protein (test code = Total 7.7 6.4-8.4 Protein) [facility]2019-07-09 21:46:00 Test Item Value Reference Range Interpretation Comments Sodium Lvl (test code = Sodium Lvl) 134 135-145 [facility]2019-07-09 21:46:00 Test Item Value Reference Range Interpretation Comments Chloride Lvl (test code = Chloride Lvl) 101 95-109 [facility]2019-07-09 21:46:00 Test Item Value Reference Range Interpretation Comments Potassium Lvl (test code = Potassium 4.2 3.5-5.1 Lvl) [facility]2019-07-09 21:46:00 Test Item Value Reference Range Interpretation Comments A/G Ratio (test code = A/G Ratio) 0.9 1 0.7-1.6 [facility]2019-07-09 21:46:00 Test Item Value Reference Range Interpretation Comments Globulin (test code = Globulin) 4.1 2.7-4.2 [facility]2019-07-09 21:46:00 Test Item Value Reference Range Interpretation Comments AGAP (test code = AGAP) 9.2 10.0-20.0 [facility]2019-07-09 21:46:00 Test Item Value Reference Range Interpretation Comments B/C Ratio (test code = B/C Ratio) 19 1 6-25 [facility]2019-07-09 21:46:00 Test Item Value Reference Range Interpretation Comments Lipase Lvl (test code = Lipase Lvl) 131 73-393 [facility] Cent[id number] 21:46:00 Test Item Value Reference Range Interpretation Comments Basophils # (test code 0.1 See_Comment [Aut omated message] The = Basophils #) system which generated this result tra nsmitted reference range : <=0.2. The reference r chase was not used to int erpret this result as normal/abnormal . [facility] CenterOyfxminFUGPFIGHQY9261-32-01 21:46:00 Test Item Value Reference Range Interpretation Comments Eosinophils # (test code 0.1 See_Comment [A utomated message] The = Eosinophils #) system whic h generated this result tra nsmitted reference range : <=0.5. The reference r chase was not used to int erpret this result as normal/abnormal . [facility] CenterGuszoauZFLFMBCCJW6031-26-04 21:46:00 Test Item Value Reference Range Interpretation Comments Monocytes # (test code 0.4 See_Comment [Aut omated message] The = Monocytes #) system which generated this result tra nsmitted reference range : <=0.8. The reference r chase was not used to int erpret this result as normal/abnormal . [facility] CenterNkiqdqqDUHJGGCCAH7945-33-87 21:46:00 Test Item Value Reference Range Interpretation Comments Lymphocytes # (test code = Lymphocytes 1.8 1.0-5.5 #) [facility] CenterVkayopdHJNKJIELIQ9569-93-85 21:46:00 Test Item Value Reference Range Interpretation Comments Neutrophils # (test code = Neutrophils 4.6 1.5-8.1 #) [facility] CenterYdyggcwMPBYSNIUOL4828-37-37 21:46:00 Test Item Value Reference Range Interpretation Comments Basophils (test code = 0.6 See_Comment [Aut omated message] The Basophils) system which ge nerated this result tra nsmitted reference range : <=1.0. The reference r chase was not used to int erpret this result as normal/abnormal . [facility] CenterAwvhvgrXRKGRDYJJM6611-69-25 21:46:00 Test Item Value Reference Range Interpretation Comments Eosinophils (test code = 0.9 See_Comment [A utomated message] The Eosinophils) system which ge nerated this result tra nsmitted reference range : <=4.0. The reference r chase was not used to int erpret this result as normal/abnormal . [facility] CenterDwphkxjAOMUOIMPRV8474-41-56 21:46:00 Test Item Value Reference Range Interpretation Comments Monocytes (test code = Monocytes) 6.2 2.0-12.0 [facility] CenterMoysjftFWUFBQBLFL6044-49-37 21:46:00 Test Item Value Reference Range Interpretation Comments Lymphocytes (test code = Lymphocytes) 25.4 20.0-40.0 [facility] Cent[id number] 21:46:00 Test Item Value Reference Range Interpretation Comments Segs (test code = Segs) 66.9 45.0-75.0 [facility] CenterXhxnujuXBWPICORQB2725-74-62 21:46:00 Test Item Value Reference Range Interpretation Comments Platelet (test code = Platelet) 277 133-450 [facility] CenterBmpoekgCYVQEFYMTA8728-40-16 21:46:00 Test Item Value Reference Range Interpretation Comments MPV (test code = MPV) 9.5 7.4-10.4 [facility] CenterZekloiuQKVGYNIIHO1401-39-99 21:46:00 Test Item Value Reference Range Interpretation Comments MCHC (test code = MCHC) 35.4 32.0-36.0 [facility] CenterFtzetgeBRDJOIYWKC6710-63-66 21:46:00 Test Item Value Reference Range Interpretation Comments RDW (test code = RDW) 13.2 11.5-14.5 [facility] CenterRivpahfCBUMDJSORY8692-24-63 21:46:00 Test Item Value Reference Range Interpretation Comments MCV (test code = MCV) 95.2 80.0-98.0 [facility] CenterUycojozSMRQLMRUHU0921-78-14 21:46:00 Test Item Value Reference Range Interpretation Comments MCH (test code = MCH) 33.8 pg 27.0-31.0 [facility] CenterPwrmlalEZDIIOJERZ9354-94-27 21:46:00 Test Item Value Reference Range Interpretation Comments Hgb (test code = Hgb) 16.8 12.0-16.0 [facility] CenterRoqrcknNWKNYCUTHO7544-07-02 21:46:00 Test Item Value Reference Range Interpretation Comments Hct (test code = Hct) 47.4 36.0-48.0 [facility] CenterKhyrztaHAICHXKRZG1842-40-43 21:46:00 Test Item Value Reference Range Interpretation Comments RBC (test code = RBC) 4.98 4.20-5.40 [facility] CenterCyqboifJOMJMMDXBD7028-38-47 21:46:00 Test Item Value Reference Range Interpretation Comments WBC (test code = WBC) 6.9 3.7-10.4 [facility] CenterGmchphbCTOQPXDHRN7455-96-52 21:46:00 Test Item Value Reference Range Interpretation Comments PTT (test code = PTT) 27.0 s 22.9-35.8 [facility] CenterHbrrgyiIBAIWEEKGY2124-62-90 21:46:00 Test Item Value Reference Range Interpretation Comments INR (test code = INR) 0.97 1 0.85-1.17 [facility] CenterApdnczpNADDVNPDUL4112-85-64 21:46:00 Test Item Value Reference Range Interpretation Comments PT (test code = PT) 12.7 s 12.0-14.7 [facility] AND [id number] 21:46:00 Test Item Value Reference Range Interpretation Comments UA Nitrite (test code Negative (01/03/19 4:46 = UA Nitrite) PM) [facility] AND [id number] 21:46:00 Test Item Value Reference Range Interpretation Comments UA Leuk Est (test code Small *ABN*(01/03/19 4:46 = UA Leuk Est) PM) [facility] AND [id number] 21:46:00 Test Item Value Reference Range Interpretation Comments UA Protein (test code = UA Protein) 100 mg/dL [facility] AND [id number] 21:46:00 Test Item Value Reference Range Interpretation Comments UA pH (test code = UA pH) 6.0 1 5.0-8.0 [facility] AND [id number] 21:46:00 Test Item Value Reference Range Interpretation Comments UA Mucus (test code = UA Mucus) Few /LPF [facility] AND [id number] 21:46:00 Test Item Value Reference Range Interpretation Comments UA Blood (test code = Negative (01/03/19 4:46 UA Blood) PM) [facility] AND [id number] 21:46:00 Test Item Value Reference Range Interpretation Comments UA Bili (test code = Negative *NA*(01/03/19 UA Bili) 4:46 PM) [facility] AND [id number] 21:46:00 Test Item Value Reference Range Interpretation Comments UA Hyal Cast (test 1 See_Comment [Automat ed message] The code = UA Hyal Cast) system which generated this result transmit bright reference range : <=2. The reference range was not used to interpr et this result as candice l/abnormal. [facility] AND [id number] 21:46:00 Test Item Value Reference Range Interpretation Comments UA WBC (test code = 7 See_Comment [Automa bright message] The UA WBC) system which ge nerated this result transmit bright reference range : <=5. The reference range was not used to interpr et this result as candice l/abnormal. [facility] AND [id number] 21:46:00 Test Item Value Reference Range Interpretation Comments UA RBC (test code = 13 See_Comment [Automa bright message] The UA RBC) system which ge nerated this result transmit bright reference range : <=2. The reference range was not used to interpr et this result as candice l/abnormal. [facility] AND [id number] 21:46:00 Test Item Value Reference Range Interpretation Comments UA Sq Epi (test code = UA Sq Epi) Many /LPF [facility] AND [id number] 21:46:00 Test Item Value Reference Range Interpretation Comments UA Urobilinogen (test code = UA <=1.0 mg/dL 0.1-1.0 Urobilinogen) [facility] AND [id number] 21:46:00 Test Item Value Reference Range Interpretation Comments UA Bradford Yeast (test code = UA Bradford Few /HPF Yeast) [facility] AND [id number] 21:46:00 Test Item Value Reference Range Interpretation Comments UA Glucose (test code = UA Glucose) 500 mg/dL [facility] AND [id number] 21:46:00 Test Item Value Reference Range Interpretation Comments UA Ketones (test code = UA Negative mg/dL Ketones) [facility] AND [id number] 21:46:00 Test Item Value Reference Range Interpretation Comments UA Color (test code = Yellow *NA*(01/03/19 4:46 UA Color) PM) [facility] AND [id number] 21:46:00 Test Item Value Reference Range Interpretation Comments UA Turbidity (test code Slight *ABN*(01/03/19 = UA Turbidity) 4:46 PM) [facility] AND [id number] 21:46:00 Test Item Value Reference Range Interpretation Comments UA Spec Grav (test code = UA Spec 1.027 1 Grav) [facility] [id number] 21:46:00 Test Item Value Reference Range Interpretation Comments Procalcitonin Lvl <0.05 ng/mL See_Comment [Automate d message] (test code = The system whic h Procalcitonin Lvl) generated this result transmit bright reference range : <=0.10. The reference range was not used to interpret this result as normal/abnormal . [facility]2019-07-09 21:46:00 Test Item Value Reference Range Interpretation Comments Lactic Acid Lvl (test code = Lactic 1.6 0.5-2.2 Acid Lvl) [facility]2019-07-09 21:46:00 Test Item Value Reference Range Interpretation Comments eGFR (test code = eGFR) 68 [facility]2019-07-09 21:46:00 Test Item Value Reference Range Interpretation Comments AST (test code = AST) 21 See_Comment [Auto mated message] The system which ge nerated this result transmit bright reference range : <=37. The reference range was not used to interpr et this result as candice l/abnormal. [facility]2019-07-09 21:46:00 Test Item Value Reference Range Interpretation Comments Alk Phos (test code = Alk Phos) 131 39-136 [facility]2019-07-09 21:46:00 Test Item Value Reference Range Interpretation Comments Bili Total (test code = Bili Total) 0.5 0.2-1.3 [facility]2019-07-09 21:46:00 Test Item Value Reference Range Interpretation Comments Glucose Lvl (test code = Glucose Lvl) 340 70-99 [facility]2019-07-09 21:46:00 Test Item Value Reference Range Interpretation Comments BUN (test code = BUN) 18 7-22 [facility]2019-07-09 21:46:00 Test Item Value Reference Range Interpretation Comments Creatinine Lvl (test code = Creatinine 0.93 0.50-1.40 Lvl) [facility]2019-07-09 21:46:00 Test Item Value Reference Range Interpretation Comments Albumin Lvl (test code = Albumin Lvl) 3.6 3.5-5.0 [facility]2019-07-09 21:46:00 Test Item Value Reference Range Interpretation Comments ALT (test code = ALT) 35 See_Comment [Auto mated message] The system which ge nerated this result transmit bright reference range : <=65. The reference range was not used to interpr et this result as candice l/abnormal. [facility]2019-07-09 21:46:00 Test Item Value Reference Range Interpretation Comments CO2 (test code = CO2) 28 24-32 [facility]2019-07-09 21:46:00 Test Item Value Reference Range Interpretation Comments Calcium Lvl (test code = Calcium Lvl) 10.7 8.5-10.5 [facility]2019-07-09 21:46:00 Test Item Value Reference Range Interpretation Comments Total Protein (test code = Total 7.7 6.4-8.4 Protein) [facility]2019-07-09 21:46:00 Test Item Value Reference Range Interpretation Comments Sodium Lvl (test code = Sodium Lvl) 134 135-145 [facility]2019-07-09 21:46:00 Test Item Value Reference Range Interpretation Comments Chloride Lvl (test code = Chloride Lvl) 101 95-109 [facility]2019-07-09 21:46:00 Test Item Value Reference Range Interpretation Comments Potassium Lvl (test code = Potassium 4.2 3.5-5.1 Lvl) [facility]2019-07-09 21:46:00 Test Item Value Reference Range Interpretation Comments A/G Ratio (test code = A/G Ratio) 0.9 1 0.7-1.6 [facility]2019-07-09 21:46:00 Test Item Value Reference Range Interpretation Comments Globulin (test code = Globulin) 4.1 2.7-4.2 [facility]2019-07-09 21:46:00 Test Item Value Reference Range Interpretation Comments AGAP (test code = AGAP) 9.2 10.0-20.0 [facility]2019-07-09 21:46:00 Test Item Value Reference Range Interpretation Comments B/C Ratio (test code = B/C Ratio) 19 1 6-25 [facility]2019-07-09 21:46:00 Test Item Value Reference Range Interpretation Comments Lipase Lvl (test code = Lipase Lvl) 131 73-393 [facility]BcumsycKCZRJWYDWT7614-20-11 21:46:00 Test Item Value Reference Range Interpretation Comments Basophils # (test code 0.1 See_Comment [Aut omated message] The = Basophils #) system which generated this result tra nsmitted reference range : <=0.2. The reference r chase was not used to int erpret this result as normal/abnormal . [facility] C[id number] 21:46:00 Test Item Value Reference Range Interpretation Comments Eosinophils # (test code 0.1 See_Comment [A utomated message] The = Eosinophils #) system wh h generated this result tra nsmitted reference range : <=0.5. The reference r chase was not used to int erpret this result as normal/abnormal . [facility] CenterMbokccxTNUDPHGDMD3428-05-20 21:46:00 Test Item Value Reference Range Interpretation Comments Monocytes # (test code 0.4 See_Comment [Aut omated message] The = Monocytes #) system which generated this result tra nsmitted reference range : <=0.8. The reference r chase was not used to int erpret this result as normal/abnormal . [facility] CenterLgglgdpZNSTZIVEJI1446-07-00 21:46:00 Test Item Value Reference Range Interpretation Comments Lymphocytes # (test code = Lymphocytes 1.8 1.0-5.5 #) [facility] CenterNyjxuuzPSQCPPEYLS9535-25-59 21:46:00 Test Item Value Reference Range Interpretation Comments Neutrophils # (test code = Neutrophils 4.6 1.5-8.1 #) [facility] [id number] 21:46:00 Test Item Value Reference Range Interpretation Comments Basophils (test code = 0.6 See_Comment [Aut omated message] The Basophils) system which ge nerated this result tra nsmitted reference range : <=1.0. The reference r chase was not used to int erpret this result as normal/abnormal . [facility] CenterEzwlfsiUKAWUFAWFN7411-81-96 21:46:00 Test Item Value Reference Range Interpretation Comments Eosinophils (test code = 0.9 See_Comment [A utomated message] The Eosinophils) system which ge nerated this result tra nsmitted reference range : <=4.0. The reference r chase was not used to int erpret this result as normal/abnormal . [facility] CenterMbdmfxpFFNPTESRNU4351-17-69 21:46:00 Test Item Value Reference Range Interpretation Comments Monocytes (test code = Monocytes) 6.2 2.0-12.0 [facility] C[id number] 21:46:00 Test Item Value Reference Range Interpretation Comments Lymphocytes (test code = Lymphocytes) 25.4 20.0-40.0 [facility] Cent[id number] 21:46:00 Test Item Value Reference Range Interpretation Comments Segs (test code = Segs) 66.9 45.0-75.0 [facility] CenterIolvidbVIBJUWBJRU3812-87-66 21:46:00 Test Item Value Reference Range Interpretation Comments Platelet (test code = Platelet) 277 133-450 [facility] CenterHxfrldsLLKWSSKFCA6167-75-16 21:46:00 Test Item Value Reference Range Interpretation Comments MPV (test code = MPV) 9.5 7.4-10.4 [facility] CenterTzexlobNODYFWKLEB3741-54-41 21:46:00 Test Item Value Reference Range Interpretation Comments MCHC (test code = MCHC) 35.4 32.0-36.0 [facility] CenterWfdermyRGPFVGCCGA9063-28-45 21:46:00 Test Item Value Reference Range Interpretation Comments RDW (test code = RDW) 13.2 11.5-14.5 [facility] CenterEaakqtlWDWQSELVXT3745-60-16 21:46:00 Test Item Value Reference Range Interpretation Comments MCV (test code = MCV) 95.2 80.0-98.0 [facility] CenterJrsycdvIQCQQETUSU7540-07-00 21:46:00 Test Item Value Reference Range Interpretation Comments MCH (test code = MCH) 33.8 pg 27.0-31.0 [facility] CenterTmgupctVJYSWHPJCY4835-59-63 21:46:00 Test Item Value Reference Range Interpretation Comments Hgb (test code = Hgb) 16.8 12.0-16.0 [facility] CenterCumnmuaLJDHRMTYGT4305-59-12 21:46:00 Test Item Value Reference Range Interpretation Comments Hct (test code = Hct) 47.4 36.0-48.0 [facility] CenterZmtrpihXKCXVTZUPA6455-76-82 21:46:00 Test Item Value Reference Range Interpretation Comments RBC (test code = RBC) 4.98 4.20-5.40 [facility] CenterBdxhlocLQBHQZJKNQ7809-21-00 21:46:00 Test Item Value Reference Range Interpretation Comments WBC (test code = WBC) 6.9 3.7-10.4 [facility] CenterAdzdhtvKXQZKOZWGS2865-41-21 21:46:00 Test Item Value Reference Range Interpretation Comments PTT (test code = PTT) 27.0 s 22.9-35.8 [facility] CenterEkvrfbpDNOGECIKOL4054-49-45 21:46:00 Test Item Value Reference Range Interpretation Comments INR (test code = INR) 0.97 1 0.85-1.17 [facility] CenterUegntdyXVYEUGVZBX8439-38-75 21:46:00 Test Item Value Reference Range Interpretation Comments PT (test code = PT) 12.7 s 12.0-14.7 [facility] AND [id number] 21:46:00 Test Item Value Reference Range Interpretation Comments UA Nitrite (test code Negative (01/03/19 4:46 = UA Nitrite) PM) [facility] AND [id number] 21:46:00 Test Item Value Reference Range Interpretation Comments UA Leuk Est (test code Small *ABN*(01/03/19 4:46 = UA Leuk Est) PM) [facility] AND [id number] 21:46:00 Test Item Value Reference Range Interpretation Comments UA Protein (test code = UA Protein) 100 mg/dL [facility] AND [id number] 21:46:00 Test Item Value Reference Range Interpretation Comments UA pH (test code = UA pH) 6.0 1 5.0-8.0 [facility] AND [id number] 21:46:00 Test Item Value Reference Range Interpretation Comments UA Mucus (test code = UA Mucus) Few /LPF [facility] AND [id number] 21:46:00 Test Item Value Reference Range Interpretation Comments UA Blood (test code = Negative (01/03/19 4:46 UA Blood) PM) [facility] AND [id number] 21:46:00 Test Item Value Reference Range Interpretation Comments UA Bili (test code = Negative *NA*(01/03/19 UA Bili) 4:46 PM) [facility] AND [id number] 21:46:00 Test Item Value Reference Range Interpretation Comments UA Hyal Cast (test 1 See_Comment [Automat ed message] The code = UA Hyal Cast) system which generated this result transmit bright reference range : <=2. The reference range was not used to interpr et this result as candice l/abnormal. [facility] AND [id number] 21:46:00 Test Item Value Reference Range Interpretation Comments UA WBC (test code = 7 See_Comment [Automa bright message] The UA WBC) system which ge nerated this result transmit bright reference range : <=5. The reference range was not used to interpr et this result as candice l/abnormal. [facility] AND [id number] 21:46:00 Test Item Value Reference Range Interpretation Comments UA RBC (test code = 13 See_Comment [Automa bright message] The UA RBC) system which ge nerated this result transmit bright reference range : <=2. The reference range was not used to interpr et this result as candice l/abnormal. [facility] AND [id number] 21:46:00 Test Item Value Reference Range Interpretation Comments UA Sq Epi (test code = UA Sq Epi) Many /LPF [facility] AND [id number] 21:46:00 Test Item Value Reference Range Interpretation Comments UA Urobilinogen (test code = UA <=1.0 mg/dL 0.1-1.0 Urobilinogen) [facility] AND [id number] 21:46:00 Test Item Value Reference Range Interpretation Comments UA Bradford Yeast (test code = UA Bradford Few /HPF Yeast) [facility] AND [id number] 21:46:00 Test Item Value Reference Range Interpretation Comments UA Glucose (test code = UA Glucose) 500 mg/dL [facility] AND [id number] 21:46:00 Test Item Value Reference Range Interpretation Comments UA Ketones (test code = UA Negative mg/dL Ketones) [facility] AND [id number] 21:46:00 Test Item Value Reference Range Interpretation Comments UA Color (test code = Yellow *NA*(01/03/19 4:46 UA Color) PM) [facility] AND [id number] 21:46:00 Test Item Value Reference Range Interpretation Comments UA Turbidity (test code Slight *ABN*(01/03/19 = UA Turbidity) 4:46 PM) [facility] AND [id number] 21:46:00 Test Item Value Reference Range Interpretation Comments UA Spec Grav (test code = UA Spec 1.027 1 Grav) [facility]2019-07-09 21:46:00 Test Item Value Reference Range Interpretation Comments Procalcitonin Lvl <0.05 ng/mL See_Comment [Automate d message] (test code = The system whic h Procalcitonin Lvl) generated this result transmit bright reference range : <=0.10. The reference range was not used to interpret this result as normal/abnormal . [facility]2019-07-09 21:46:00 Test Item Value Reference Range Interpretation Comments Lactic Acid Lvl (test code = Lactic 1.6 0.5-2.2 Acid Lvl) [facility]2019-07-09 21:46:00 Test Item Value Reference Range Interpretation Comments eGFR (test code = eGFR) 68 [facility]2019-07-09 21:46:00 Test Item Value Reference Range Interpretation Comments AST (test code = AST) 21 See_Comment [Auto mated message] The system which ge nerated this result transmit bright reference range : <=37. The reference range was not used to interpr et this result as candice l/abnormal. [facility]2019-07-09 21:46:00 Test Item Value Reference Range Interpretation Comments Alk Phos (test code = Alk Phos) 131 39-136 [facility]2019-07-09 21:46:00 Test Item Value Reference Range Interpretation Comments Bili Total (test code = Bili Total) 0.5 0.2-1.3 [facility]2019-07-09 21:46:00 Test Item Value Reference Range Interpretation Comments Glucose Lvl (test code = Glucose Lvl) 340 70-99 [facility]2019-07-09 21:46:00 Test Item Value Reference Range Interpretation Comments BUN (test code = BUN) 18 7-22 [facility]2019-07-09 21:46:00 Test Item Value Reference Range Interpretation Comments Creatinine Lvl (test code = Creatinine 0.93 0.50-1.40 Lvl) [facility]2019-07-09 21:46:00 Test Item Value Reference Range Interpretation Comments Albumin Lvl (test code = Albumin Lvl) 3.6 3.5-5.0 [place] 159249-07-09 21:46:00 Test Item Value Reference Range Interpretation Comments ALT (test code = ALT) 35 See_Comment [Auto mated message] The system which ge nerated this result transmit bright reference range : <=65. The reference range was not used to interpr et this result as candice l/abnormal. [facility]2019-07-09 21:46:00 Test Item Value Reference Range Interpretation Comments CO2 (test code = CO2) 28 24-32 [facility]2019-07-09 21:46:00 Test Item Value Reference Range Interpretation Comments Calcium Lvl (test code = Calcium Lvl) 10.7 8.5-10.5 [facility]2019-07-09 21:46:00 Test Item Value Reference Range Interpretation Comments Total Protein (test code = Total 7.7 6.4-8.4 Protein) [facility]2019-07-09 21:46:00 Test Item Value Reference Range Interpretation Comments Sodium Lvl (test code = Sodium Lvl) 134 135-145 [facility]2019-07-09 21:46:00 Test Item Value Reference Range Interpretation Comments Chloride Lvl (test code = Chloride Lvl) 101 95-109 [facility]2019-07-09 21:46:00 Test Item Value Reference Range Interpretation Comments Potassium Lvl (test code = Potassium 4.2 3.5-5.1 Lvl) [facility]2019-07-09 21:46:00 Test Item Value Reference Range Interpretation Comments A/G Ratio (test code = A/G Ratio) 0.9 1 0.7-1.6 [facility]2019-07-09 21:46:00 Test Item Value Reference Range Interpretation Comments Globulin (test code = Globulin) 4.1 2.7-4.2 [facility]2019-07-09 21:46:00 Test Item Value Reference Range Interpretation Comments AGAP (test code = AGAP) 9.2 10.0-20.0 [facility]2019-07-09 21:46:00 Test Item Value Reference Range Interpretation Comments B/C Ratio (test code = B/C Ratio) 19 1 6-25 [facility]2019-07-09 21:46:00 Test Item Value Reference Range Interpretation Comments Lipase Lvl (test code = Lipase Lvl) 131 50-393 [facility] CenterGltnhdoHPFEDUUURS6877-04-45 21:46:00 Test Item Value Reference Range Interpretation Comments Basophils # (test code 0.1 See_Comment [Aut omated message] The = Basophils #) system which generated this result tra nsmitted reference range : <=0.2. The reference r chase was not used to int erpret this result as normal/abnormal . [facility] CenterQkogfmgRZDEXXEMJL6101-91-33 21:46:00 Test Item Value Reference Range Interpretation Comments Eosinophils # (test code 0.1 See_Comment [A utomated message] The = Eosinophils #) system whic h generated this result tra nsmitted reference range : <=0.5. The reference r chase was not used to int erpret this result as normal/abnormal . [facility] CenterBowespqUBSTFXTTMS0152-04-26 21:46:00 Test Item Value Reference Range Interpretation Comments Monocytes # (test code 0.4 See_Comment [Aut omated message] The = Monocytes #) system which generated this result tra nsmitted reference range : <=0.8. The reference r chase was not used to int erpret this result as normal/abnormal . [facility] CenterJwnwyvxSXQPWSDJVS2981-17-03 21:46:00 Test Item Value Reference Range Interpretation Comments Lymphocytes # (test code = Lymphocytes 1.8 1.0-5.5 #) [facility] CenterPyhpthyQTBZFHFMYZ4025-63-38 21:46:00 Test Item Value Reference Range Interpretation Comments Neutrophils # (test code = Neutrophils 4.6 1.5-8.1 #) [facility] CenterGelutqlWOOOPMLYFG2133-59-12 21:46:00 Test Item Value Reference Range Interpretation Comments Basophils (test code = 0.6 See_Comment [Aut omated message] The Basophils) system which ge nerated this result tra nsmitted reference range : <=1.0. The reference r chase was not used to int erpret this result as normal/abnormal . [facility] CenterWtktoueJVIFIJFSHU6981-28-02 21:46:00 Test Item Value Reference Range Interpretation Comments Eosinophils (test code = 0.9 See_Comment [A utomated message] The Eosinophils) system which ge nerated this result tra nsmitted reference range : <=4.0. The reference r chase was not used to int erpret this result as normal/abnormal . [facility] CenterVanqgjeZIPEVOMSWH9144-17-78 21:46:00 Test Item Value Reference Range Interpretation Comments Monocytes (test code = Monocytes) 6.2 2.0-12.0 [facility] CenterUbgmnwaVFPURSJMMV9722-73-26 21:46:00 Test Item Value Reference Range Interpretation Comments Lymphocytes (test code = Lymphocytes) 25.4 20.0-40.0 [facility] CenterHcnzuhhECNTBLSEVJ5628-78-25 21:46:00 Test Item Value Reference Range Interpretation Comments Segs (test code = Segs) 66.9 45.0-75.0 [facility] CenterHjolnbvBEJCGGDFSS6876-41-17 21:46:00 Test Item Value Reference Range Interpretation Comments Platelet (test code = Platelet) 277 133-450 [facility] CenterRamhmdaYWWMCDPWPJ9778-07-04 21:46:00 Test Item Value Reference Range Interpretation Comments MPV (test code = MPV) 9.5 7.4-10.4 [facility] CenterJnehoxcMSXPNKPBVS3564-69-26 21:46:00 Test Item Value Reference Range Interpretation Comments MCHC (test code = MCHC) 35.4 32.0-36.0 [facility] CenterEftcncgFRNATSOOJV3601-57-22 21:46:00 Test Item Value Reference Range Interpretation Comments RDW (test code = RDW) 13.2 11.5-14.5 [facility] CenterLjuysyaUPSTVWVJWJ7481-19-88 21:46:00 Test Item Value Reference Range Interpretation Comments MCV (test code = MCV) 95.2 80.0-98.0 [facility] CenterQbxnnqvBJQYYBCMJM4493-85-64 21:46:00 Test Item Value Reference Range Interpretation Comments MCH (test code = MCH) 33.8 pg 27.0-31.0 [facility] CenterVivldbxCYMKZFJLNU8166-82-14 21:46:00 Test Item Value Reference Range Interpretation Comments Hgb (test code = Hgb) 16.8 12.0-16.0 [id number] 21:46:00 Test Item Value Reference Range Interpretation Comments Hct (test code = Hct) 47.4 36.0-48.0 [facility] C[id number] 21:46:00 Test Item Value Reference Range Interpretation Comments RBC (test code = RBC) 4.98 4.20-5.40 [place] [id number] 21:46:00 Test Item Value Reference Range Interpretation Comments WBC (test code = WBC) 6.9 3.7-10.4 [facility] CenterUyespixISEGBTBTAZ2834-52-12 21:46:00 Test Item Value Reference Range Interpretation Comments PTT (test code = PTT) 27.0 s 22.9-35.8 [facility] CenterQkvtuhcWHVZPMHCYV3168-71-06 21:46:00 Test Item Value Reference Range Interpretation Comments INR (test code = INR) 0.97 1 0.85-1.17 [facility] CenterHtbvsmuMAKRZSSMWM6699-02-66 21:46:00 Test Item Value Reference Range Interpretation Comments PT (test code = PT) 12.7 s 12.0-14.7 [facility] AND [id number] 21:46:00 Test Item Value Reference Range Interpretation Comments UA Nitrite (test code Negative (01/03/19 4:46 = UA Nitrite) PM) [facility] AND [id number] 21:46:00 Test Item Value Reference Range Interpretation Comments UA Leuk Est (test code Small *ABN*(01/03/19 4:46 = UA Leuk Est) PM) [facility] AND [id number] 21:46:00 Test Item Value Reference Range Interpretation Comments UA Protein (test code = UA Protein) 100 mg/dL [facility] AND [id number] 21:46:00 Test Item Value Reference Range Interpretation Comments UA pH (test code = UA pH) 6.0 1 5.0-8.0 [facility] AND [id number] 21:46:00 Test Item Value Reference Range Interpretation Comments UA Mucus (test code = UA Mucus) Few /LPF [facility] AND [id number] 21:46:00 Test Item Value Reference Range Interpretation Comments UA Blood (test code = Negative (01/03/19 4:46 UA Blood) PM) [facility] AND [id number] 21:46:00 Test Item Value Reference Range Interpretation Comments UA Bili (test code = Negative *NA*(01/03/19 UA Bili) 4:46 PM) [facility] AND [id number] 21:46:00 Test Item Value Reference Range Interpretation Comments UA Hyal Cast (test 1 See_Comment [Automat ed message] The code = UA Hyal Cast) system which generated this result transmit bright reference range : <=2. The reference range was not used to interpr et this result as candice l/abnormal. [facility] AND [id number] 21:46:00 Test Item Value Reference Range Interpretation Comments UA WBC (test code = 7 See_Comment [Automa bright message] The UA WBC) system which ge nerated this result transmit bright reference range : <=5. The reference range was not used to interpr et this result as candice l/abnormal. [facility] AND [id number] 21:46:00 Test Item Value Reference Range Interpretation Comments UA RBC (test code = 13 See_Comment [Automa bright message] The UA RBC) system which ge nerated this result transmit bright reference range : <=2. The reference range was not used to interpr et this result as candice l/abnormal. [facility] AND [id number] 21:46:00 Test Item Value Reference Range Interpretation Comments UA Sq Epi (test code = UA Sq Epi) Many /LPF [facility] AND [id number] 21:46:00 Test Item Value Reference Range Interpretation Comments UA Urobilinogen (test code = UA <=1.0 mg/dL 0.1-1.0 Urobilinogen) [facility] AND [id number] 21:46:00 Test Item Value Reference Range Interpretation Comments UA Bradford Yeast (test code = UA Bradford Few /HPF Yeast) [facility] AND [id number] 21:46:00 Test Item Value Reference Range Interpretation Comments UA Glucose (test code = UA Glucose) 500 mg/dL [facility] AND [id number] 21:46:00 Test Item Value Reference Range Interpretation Comments UA Ketones (test code = UA Negative mg/dL Ketones) [facility] AND [id number] 21:46:00 Test Item Value Reference Range Interpretation Comments UA Color (test code = Yellow *NA*(01/03/19 4:46 UA Color) PM) [facility] AND [id number] 21:46:00 Test Item Value Reference Range Interpretation Comments UA Turbidity (test code Slight *ABN*(01/03/19 = UA Turbidity) 4:46 PM) [facility] AND [id number] 21:46:00 Test Item Value Reference Range Interpretation Comments UA Spec Grav (test code = UA Spec 1.027 1 Grav) [facility]2019-07-09 21:46:00 Test Item Value Reference Range Interpretation Comments Procalcitonin Lvl <0.05 ng/mL See_Comment [Automate d message] (test code = The system whic h Procalcitonin Lvl) generated this result transmit bright reference range : <=0.10. The reference range was not used to interpret this result as normal/abnormal . [facility]2019-07-09 21:46:00 Test Item Value Reference Range Interpretation Comments Lactic Acid Lvl (test code = Lactic 1.6 0.5-2.2 Acid Lvl) [facility]2019-07-09 21:46:00 Test Item Value Reference Range Interpretation Comments eGFR (test code = eGFR) 68 [facility]2019-07-09 21:46:00 Test Item Value Reference Range Interpretation Comments AST (test code = AST) 21 See_Comment [Auto mated message] The system which ge nerated this result transmit bright reference range : <=37. The reference range was not used to interpr et this result as candice l/abnormal. [facility]2019-07-09 21:46:00 Test Item Value Reference Range Interpretation Comments Alk Phos (test code = Alk Phos) 131 39-136 [facility]2019-07-09 21:46:00 Test Item Value Reference Range Interpretation Comments Bili Total (test code = Bili Total) 0.5 0.2-1.3 [facility]2019-07-09 21:46:00 Test Item Value Reference Range Interpretation Comments Glucose Lvl (test code = Glucose Lvl) 340 70-99 [facility]2019-07-09 21:46:00 Test Item Value Reference Range Interpretation Comments BUN (test code = BUN) 18 7-22 [facility]2019-07-09 21:46:00 Test Item Value Reference Range Interpretation Comments Creatinine Lvl (test code = Creatinine 0.93 0.50-1.40 Lvl) [facility]2019-07-09 21:46:00 Test Item Value Reference Range Interpretation Comments Albumin Lvl (test code = Albumin Lvl) 3.6 3.5-5.0 [facility]2019-07-09 21:46:00 Test Item Value Reference Range Interpretation Comments ALT (test code = ALT) 35 See_Comment [Auto mated message] The system which ge nerated this result transmit bright reference range : <=65. The reference range was not used to interpr et this result as candice l/abnormal. [facility]2019-07-09 21:46:00 Test Item Value Reference Range Interpretation Comments CO2 (test code = CO2) 28 24-32 [facility]2019-07-09 21:46:00 Test Item Value Reference Range Interpretation Comments Calcium Lvl (test code = Calcium Lvl) 10.7 8.5-10.5 [facility]2019-07-09 21:46:00 Test Item Value Reference Range Interpretation Comments Total Protein (test code = Total 7.7 6.4-8.4 Protein) [facility]2019-07-09 21:46:00 Test Item Value Reference Range Interpretation Comments Sodium Lvl (test code = Sodium Lvl) 134 135-145 [facility]2019-07-09 21:46:00 Test Item Value Reference Range Interpretation Comments Chloride Lvl (test code = Chloride Lvl) 101 95-109 [facility]2019-07-09 21:46:00 Test Item Value Reference Range Interpretation Comments Potassium Lvl (test code = Potassium 4.2 3.5-5.1 Lvl) [facility]2019-07-09 21:46:00 Test Item Value Reference Range Interpretation Comments A/G Ratio (test code = A/G Ratio) 0.9 1 0.7-1.6 [facility]2019-07-09 21:46:00 Test Item Value Reference Range Interpretation Comments Globulin (test code = Globulin) 4.1 2.7-4.2 [facility]2019-07-09 21:46:00 Test Item Value Reference Range Interpretation Comments AGAP (test code = AGAP) 9.2 10.0-20.0 [facility]2019-07-09 21:46:00 Test Item Value Reference Range Interpretation Comments B/C Ratio (test code = B/C Ratio) 19 1 6-25 [facility]2019-07-09 21:46:00 Test Item Value Reference Range Interpretation Comments Lipase Lvl (test code = Lipase Lvl) 131 [address]93 [facility] Cent[id number] 21:46:00 Test Item Value Reference Range Interpretation Comments Basophils # (test code 0.1 See_Comment [Aut omated message] The = Basophils #) system which generated this result tra nsmitted reference range : <=0.2. The reference r chase was not used to int erpret this result as normal/abnormal . [facility] CenterLpasejuICIKSIMWHX4191-33-53 21:46:00 Test Item Value Reference Range Interpretation Comments Eosinophils # (test code 0.1 See_Comment [A utomated message] The = Eosinophils #) system whic h generated this result tra nsmitted reference range : <=0.5. The reference r chase was not used to int erpret this result as normal/abnormal . [facility] C[id number] 21:46:00 Test Item Value Reference Range Interpretation Comments Monocytes # (test code 0.4 See_Comment [Aut omated message] The = Monocytes #) system which generated this result tra nsmitted reference range : <=0.8. The reference r chase was not used to int erpret this result as normal/abnormal . [facility] CenterRpsercpQOZIIDDSBD5460-46-25 21:46:00 Test Item Value Reference Range Interpretation Comments Lymphocytes # (test code = Lymphocytes 1.8 1.0-5.5 #) [facility] CenterCzrxwlbAITXWEYWDC0647-11-42 21:46:00 Test Item Value Reference Range Interpretation Comments Neutrophils # (test code = Neutrophils 4.6 1.5-8.1 #) [facility] CenterHyigmtdUKMPKPQYCU6531-69-10 21:46:00 Test Item Value Reference Range Interpretation Comments Basophils (test code = 0.6 See_Comment [Aut omated message] The Basophils) system which ge nerated this result tra nsmitted reference range : <=1.0. The reference r chase was not used to int erpret this result as normal/abnormal . [facility] CenterOmftnomIFGXXWPXRA6571-41-52 21:46:00 Test Item Value Reference Range Interpretation Comments Eosinophils (test code = 0.9 See_Comment [A utomated message] The Eosinophils) system which ge nerated this result tra nsmitted reference range : <=4.0. The reference r chase was not used to int erpret this result as normal/abnormal . [facility] CenterFbcrrkmHLJSGWZJUY5676-62-87 21:46:00 Test Item Value Reference Range Interpretation Comments Monocytes (test code = Monocytes) 6.2 2.0-12.0 [facility] C[id number] 21:46:00 Test Item Value Reference Range Interpretation Comments Lymphocytes (test code = Lymphocytes) 25.4 20.0-40.0 [facility] CenterLgzxxjxZRXSDRCDFF3091-86-59 21:46:00 Test Item Value Reference Range Interpretation Comments Segs (test code = Segs) 66.9 45.0-75.0 [facility] CenterMdjilayLSKSCSBETR8329-67-78 21:46:00 Test Item Value Reference Range Interpretation Comments Platelet (test code = Platelet) 277 133-450 [facility] CenterYwteeybSEDHIRNFUP3026-94-39 21:46:00 Test Item Value Reference Range Interpretation Comments MPV (test code = MPV) 9.5 7.4-10.4 [facility] CenterKuftxdgPOOSRWIEKM6015-31-16 21:46:00 Test Item Value Reference Range Interpretation Comments MCHC (test code = MCHC) 35.4 32.0-36.0 [facility] CenterSqkxpedGSLHMJIJVX5449-66-83 21:46:00 Test Item Value Reference Range Interpretation Comments RDW (test code = RDW) 13.2 11.5-14.5 [facility] CenterAplpjxrDEJBHBQWFH3684-94-94 21:46:00 Test Item Value Reference Range Interpretation Comments MCV (test code = MCV) 95.2 80.0-98.0 [facility] CenterFlfxyalISKSIJBDRX8104-49-40 21:46:00 Test Item Value Reference Range Interpretation Comments MCH (test code = MCH) 33.8 pg 27.0-31.0 [facility] CenterWgvyrjoRUHWGZWZDM3158-61-94 21:46:00 Test Item Value Reference Range Interpretation Comments Hgb (test code = Hgb) 16.8 12.0-16.0 [facility] Cent[id number] 21:46:00 Test Item Value Reference Range Interpretation Comments Hct (test code = Hct) 47.4 36.0-48.0 [facility] CenterIceyediPBOYNOIDWL0479-54-27 21:46:00 Test Item Value Reference Range Interpretation Comments RBC (test code = RBC) 4.98 4.20-5.40 [facility] CenterCnuiozcQEFZCBINTX4473-07-46 21:46:00 Test Item Value Reference Range Interpretation Comments WBC (test code = WBC) 6.9 3.7-10.4 [facility] CenterQkbnepdWZMXAYBEKG7876-51-55 21:46:00 Test Item Value Reference Range Interpretation Comments PTT (test code = PTT) 27.0 s 22.9-35.8 [facility] CenterWiptuahJOJFIKQHHK9928-08-36 21:46:00 Test Item Value Reference Range Interpretation Comments INR (test code = INR) 0.97 1 0.85-1.17 [facility] CenterCbqxjoeLHCODFMIAU5986-82-96 21:46:00 Test Item Value Reference Range Interpretation Comments PT (test code = PT) 12.7 s 12.0-14.7 [facility] AND [id number] 21:46:00 Test Item Value Reference Range Interpretation Comments UA Nitrite (test code Negative (01/03/19 4:46 = UA Nitrite) PM) [facility] AND [id number] 21:46:00 Test Item Value Reference Range Interpretation Comments UA Leuk Est (test code Small *ABN*(01/03/19 4:46 = UA Leuk Est) PM) [facility] AND [id number] 21:46:00 Test Item Value Reference Range Interpretation Comments UA Protein (test code = UA Protein) 100 mg/dL [facility] AND [id number] 21:46:00 Test Item Value Reference Range Interpretation Comments UA pH (test code = UA pH) 6.0 1 5.0-8.0 [facility] AND [id number] 21:46:00 Test Item Value Reference Range Interpretation Comments UA Mucus (test code = UA Mucus) Few /LPF [facility] AND [id number] 21:46:00 Test Item Value Reference Range Interpretation Comments UA Blood (test code = Negative (01/03/19 4:46 UA Blood) PM) [facility] AND [id number] 21:46:00 Test Item Value Reference Range Interpretation Comments UA Bili (test code = Negative *NA*(01/03/19 UA Bili) 4:46 PM) [facility] AND [id number] 21:46:00 Test Item Value Reference Range Interpretation Comments UA Hyal Cast (test 1 See_Comment [Automat ed message] The code = UA Hyal Cast) system which generated this result transmit bright reference range : <=2. The reference range was not used to interpr et this result as candice l/abnormal. [facility] AND [id number] 21:46:00 Test Item Value Reference Range Interpretation Comments UA WBC (test code = 7 See_Comment [Automa brihgt message] The UA WBC) system which ge nerated this result transmit bright reference range : <=5. The reference range was not used to interpr et this result as candice l/abnormal. [facility] AND [id number] 21:46:00 Test Item Value Reference Range Interpretation Comments UA RBC (test code = 13 See_Comment [Automa bright message] The UA RBC) system which ge nerated this result transmit bright reference range : <=2. The reference range was not used to interpr et this result as candcie l/abnormal. [facility] AND [id number] 21:46:00 Test Item Value Reference Range Interpretation Comments UA Sq Epi (test code = UA Sq Epi) Many /LPF [facility] AND [id number] 21:46:00 Test Item Value Reference Range Interpretation Comments UA Urobilinogen (test code = UA <=1.0 mg/dL 0.1-1.0 Urobilinogen) [facility] AND [id number] 21:46:00 Test Item Value Reference Range Interpretation Comments UA Bradford Yeast (test code = UA Bradford Few /HPF Yeast) [facility] AND [id number] 21:46:00 Test Item Value Reference Range Interpretation Comments UA Glucose (test code = UA Glucose) 500 mg/dL [facility] AND [id number] 21:46:00 Test Item Value Reference Range Interpretation Comments UA Ketones (test code = UA Negative mg/dL Ketones) [facility] AND [id number] 21:46:00 Test Item Value Reference Range Interpretation Comments UA Color (test code = Yellow *NA*(01/03/19 4:46 UA Color) PM) [facility] AND [id number] 21:46:00 Test Item Value Reference Range Interpretation Comments UA Turbidity (test code Slight *ABN*(01/03/19 = UA Turbidity) 4:46 PM) [facility] AND [id number] 21:46:00 Test Item Value Reference Range Interpretation Comments UA Spec Grav (test code = UA Spec 1.027 1 Grav) [facility]2019-07-09 21:46:00 Test Item Value Reference Range Interpretation Comments Procalcitonin Lvl <0.05 ng/mL See_Comment [Automate d message] (test code = The system [employer] h Procalcitonin Lvl) generated this result transmit bright reference range : <=0.10. The reference range was not used to interpret this result as normal/abnormal . [facility]2019-07-09 21:46:00 Test Item Value Reference Range Interpretation Comments Lactic Acid Lvl (test code = Lactic 1.6 0.5-2.2 Acid Lvl) [facility]2019-07-09 21:46:00 Test Item Value Reference Range Interpretation Comments eGFR (test code = eGFR) 68 [facility]2019-07-09 21:46:00 Test Item Value Reference Range Interpretation Comments AST (test code = AST) 21 See_Comment [Auto mated message] The system which ge nerated this result transmit bright reference range : <=37. The reference range was not used to interpr et this result as candice l/abnormal. [facility]2019-07-09 21:46:00 Test Item Value Reference Range Interpretation Comments Alk Phos (test code = Alk Phos) 131 39-136 [facility]2019-07-09 21:46:00 Test Item Value Reference Range Interpretation Comments Bili Total (test code = Bili Total) 0.5 0.2-1.3 [facility]2019-07-09 21:46:00 Test Item Value Reference Range Interpretation Comments Glucose Lvl (test code = Glucose Lvl) 340 70-99 [facility]2019-07-09 21:46:00 Test Item Value Reference Range Interpretation Comments BUN (test code = BUN) 18 7-22 [facility]2019-07-09 21:46:00 Test Item Value Reference Range Interpretation Comments Creatinine Lvl (test code = Creatinine 0.93 0.50-1.40 Lvl) [facility]2019-07-09 21:46:00 Test Item Value Reference Range Interpretation Comments Albumin Lvl (test code = Albumin Lvl) 3.6 3.5-5.0 [place] [id number] 21:46:00 Test Item Value Reference Range Interpretation Comments ALT (test code = ALT) 35 See_Comment [Auto mated message] The system which ge nerated this result transmit bright reference range : <=65. The reference range was not used to interpr et this result as candice l/abnormal. [facility]2019-07-09 21:46:00 Test Item Value Reference Range Interpretation Comments CO2 (test code = CO2) 28 24-32 [facility]2019-07-09 21:46:00 Test Item Value Reference Range Interpretation Comments Calcium Lvl (test code = Calcium Lvl) 10.7 8.5-10.5 [facility]2019-07-09 21:46:00 Test Item Value Reference Range Interpretation Comments Total Protein (test code = Total 7.7 6.4-8.4 Protein) [facility]2019-07-09 21:46:00 Test Item Value Reference Range Interpretation Comments Sodium Lvl (test code = Sodium Lvl) 134 135-145 [facility]2019-07-09 21:46:00 Test Item Value Reference Range Interpretation Comments Chloride Lvl (test code = Chloride Lvl) 101 95-109 [facility]2019-07-09 21:46:00 Test Item Value Reference Range Interpretation Comments Potassium Lvl (test code = Potassium 4.2 3.5-5.1 Lvl) [facility]2019-07-09 21:46:00 Test Item Value Reference Range Interpretation Comments A/G Ratio (test code = A/G Ratio) 0.9 1 0.7-1.6 [facility]2019-07-09 21:46:00 Test Item Value Reference Range Interpretation Comments Globulin (test code = Globulin) 4.1 2.7-4.2 [facility]2019-07-09 21:46:00 Test Item Value Reference Range Interpretation Comments AGAP (test code = AGAP) 9.2 10.0-20.0 [facility]2019-07-09 21:46:00 Test Item Value Reference Range Interpretation Comments B/C Ratio (test code = B/C Ratio) 19 1 6-25 [facility]2019-07-09 21:46:00 Test Item Value Reference Range Interpretation Comments Lipase Lvl (test code = Lipase Lvl) 131 73-393 [facility] CenterTvghlaaVUZUDALETS5473-00-97 21:46:00 Test Item Value Reference Range Interpretation Comments Basophils # (test code 0.1 See_Comment [Aut omated message] The = Basophils #) system which generated this result tra nsmitted reference range : <=0.2. The reference r chase was not used to int erpret this result as normal/abnormal . [facility] C[id number] 21:46:00 Test Item Value Reference Range Interpretation Comments Eosinophils # (test code 0.1 See_Comment [A utomated message] The = Eosinophils #) system whic h generated this result tra nsmitted reference range : <=0.5. The reference r chase was not used to int erpret this result as normal/abnormal . [facility] CenterLyyhzijECMTRLRTAO0091-72-68 21:46:00 Test Item Value Reference Range Interpretation Comments Monocytes # (test code 0.4 See_Comment [Aut omated message] The = Monocytes #) system which generated this result tra nsmitted reference range : <=0.8. The reference r chase was not used to int erpret this result as normal/abnormal . [facility] CenterDqoykelHKCIHWWGMZ1137-70-62 21:46:00 Test Item Value Reference Range Interpretation Comments Lymphocytes # (test code = Lymphocytes 1.8 1.0-5.5 #) [facility] CenterPxcjbcyPYPTDRVZHN2927-28-57 21:46:00 Test Item Value Reference Range Interpretation Comments Neutrophils # (test code = Neutrophils 4.6 1.5-8.1 #) [facility] CenterTivhwmnTZBAXPEVGI7945-72-98 21:46:00 Test Item Value Reference Range Interpretation Comments Basophils (test code = 0.6 See_Comment [Aut omated message] The Basophils) system which ge nerated this result tra nsmitted reference range : <=1.0. The reference r chase was not used to int erpret this result as normal/abnormal . [facility] CenterQisbvufHMDHBNWIWJ8800-22-97 21:46:00 Test Item Value Reference Range Interpretation Comments Eosinophils (test code = 0.9 See_Comment [A utomated message] The Eosinophils) system which ge nerated this result tra nsmitted reference range : <=4.0. The reference r chase was not used to int erpret this result as normal/abnormal . [id number] 21:46:00 Test Item Value Reference Range Interpretation Comments Monocytes (test code = Monocytes) 6.2 2.0-12.0 [facility] CenterXfxwbioOZQANQRRAE9904-32-24 21:46:00 Test Item Value Reference Range Interpretation Comments Lymphocytes (test code = Lymphocytes) 25.4 20.0-40.0 [facility] CenterJqxyrwfAQSAXRBCNF0655-90-98 21:46:00 Test Item Value Reference Range Interpretation Comments Segs (test code = Segs) 66.9 45.0-75.0 [facility] CenterLcgttldKVAHXYYOOT7755-57-20 21:46:00 Test Item Value Reference Range Interpretation Comments Platelet (test code = Platelet) 277 133-450 [facility] CenterJudmmbhVJDMECDXDM6559-94-56 21:46:00 Test Item Value Reference Range Interpretation Comments MPV (test code = MPV) 9.5 7.4-10.4 [facility] CenterXhxauisCOJYUIVUAP2113-03-24 21:46:00 Test Item Value Reference Range Interpretation Comments MCHC (test code = MCHC) 35.4 32.0-36.0 [facility] CenterKeenjzqRGDDUUFIEW8170-23-26 21:46:00 Test Item Value Reference Range Interpretation Comments RDW (test code = RDW) 13.2 11.5-14.5 [facility] CenterPpcjrzxUYFRBVEPJJ8959-78-29 21:46:00 Test Item Value Reference Range Interpretation Comments MCV (test code = MCV) 95.2 80.0-98.0 [facility] CenterGqbtmumKYZZJKKIJK3323-86-40 21:46:00 Test Item Value Reference Range Interpretation Comments MCH (test code = MCH) 33.8 pg 27.0-31.0 [facility] CenterOkkkvazBIOILSGHGC6246-44-46 21:46:00 Test Item Value Reference Range Interpretation Comments Hgb (test code = Hgb) 16.8 12.0-16.0 [facility] CenterBgjlzdlXAVWOEQMIR2019-49-09 21:46:00 Test Item Value Reference Range Interpretation Comments Hct (test code = Hct) 47.4 36.0-48.0 [facility] CenterUaoykkeRUAQAVAKTO2167-51-67 21:46:00 Test Item Value Reference Range Interpretation Comments RBC (test code = RBC) 4.98 4.20-5.40 [facility] CenterBheetluYSGPPDBRKX2371-81-16 21:46:00 Test Item Value Reference Range Interpretation Comments WBC (test code = WBC) 6.9 3.7-10.4 [facility] CenterWfwiighRWVNRKJINE0300-26-39 21:46:00 Test Item Value Reference Range Interpretation Comments PTT (test code = PTT) 27.0 s 22.9-35.8 [facility] CenterIqziztdUDZPTDNOQG9449-85-10 21:46:00 Test Item Value Reference Range Interpretation Comments INR (test code = INR) 0.97 1 0.85-1.17 [facility] CenterHnfxdnaCPSOZPHHTX4998-37-76 21:46:00 Test Item Value Reference Range Interpretation Comments PT (test code = PT) 12.7 s 12.0-14.7 [facility] AND [id number] 21:46:00 Test Item Value Reference Range Interpretation Comments UA Nitrite (test code Negative (01/03/19 4:46 = UA Nitrite) PM) [facility] AND [id number] 21:46:00 Test Item Value Reference Range Interpretation Comments UA Leuk Est (test code Small *ABN*(01/03/19 4:46 = UA Leuk Est) PM) [facility] AND [id number] 21:46:00 Test Item Value Reference Range Interpretation Comments UA Protein (test code = UA Protein) 100 mg/dL [facility] AND [id number] 21:46:00 Test Item Value Reference Range Interpretation Comments UA pH (test code = UA pH) 6.0 1 5.0-8.0 [facility] AND [id number] 21:46:00 Test Item Value Reference Range Interpretation Comments UA Mucus (test code = UA Mucus) Few /LPF [facility] AND [id number] 21:46:00 Test Item Value Reference Range Interpretation Comments UA Blood (test code = Negative (01/03/19 4:46 UA Blood) PM) [facility] AND [id number] 21:46:00 Test Item Value Reference Range Interpretation Comments UA Bili (test code = Negative *NA*(01/03/19 UA Bili) 4:46 PM) [facility] AND [id number] 21:46:00 Test Item Value Reference Range Interpretation Comments UA Hyal Cast (test 1 See_Comment [Automat ed message] The code = UA Hyal Cast) system which generated this result transmit bright reference range : <=2. The reference range was not used to interpr et this result as candice l/abnormal. [facility] AND [id number] 21:46:00 Test Item Value Reference Range Interpretation Comments UA WBC (test code = 7 See_Comment [Automa bright message] The UA WBC) system which ge nerated this result transmit bright reference range : <=5. The reference range was not used to interpr et this result as candice l/abnormal. [facility] AND [id number] 21:46:00 Test Item Value Reference Range Interpretation Comments UA RBC (test code = 13 See_Comment [Automa bright message] The UA RBC) system which ge nerated this result transmit bright reference range : <=2. The reference range was not used to interpr et this result as candice l/abnormal. [facility] AND [id number] 21:46:00 Test Item Value Reference Range Interpretation Comments UA Sq Epi (test code = UA Sq Epi) Many /LPF [facility] AND [id number] 21:46:00 Test Item Value Reference Range Interpretation Comments UA Urobilinogen (test code = UA <=1.0 mg/dL 0.1-1.0 Urobilinogen) [facility] AND [id number] 21:46:00 Test Item Value Reference Range Interpretation Comments UA Bradford Yeast (test code = UA Bradford Few /HPF Yeast) [facility] AND [id number] 21:46:00 Test Item Value Reference Range Interpretation Comments UA Glucose (test code = UA Glucose) 500 mg/dL [facility] AND [id number] 21:46:00 Test Item Value Reference Range Interpretation Comments UA Ketones (test code = UA Negative mg/dL Ketones) [facility] AND [id number] 21:46:00 Test Item Value Reference Range Interpretation Comments UA Color (test code = Yellow *NA*(01/03/19 4:46 UA Color) PM) [facility] AND [id number] 21:46:00 Test Item Value Reference Range Interpretation Comments UA Turbidity (test code Slight *ABN*(01/03/19 = UA Turbidity) 4:46 PM) [facility] AND [id number] 21:46:00 Test Item Value Reference Range Interpretation Comments UA Spec Grav (test code = UA Spec 1.027 1 Grav) [facility]2019-07-09 21:46:00 Test Item Value Reference Range Interpretation Comments Procalcitonin Lvl <0.05 ng/mL See_Comment [Automate d message] (test code = The system whic h Procalcitonin Lvl) generated this result transmit bright reference range : <=0.10. The reference range was not used to interpret this result as normal/abnormal . [facility]2019-07-09 21:46:00 Test Item Value Reference Range Interpretation Comments Lactic Acid Lvl (test code = Lactic 1.6 0.5-2.2 Acid Lvl) [facility]2019-07-09 21:46:00 Test Item Value Reference Range Interpretation Comments eGFR (test code = eGFR) 68 [facility]2019-07-09 21:46:00 Test Item Value Reference Range Interpretation Comments AST (test code = AST) 21 See_Comment [Auto mated message] The system which ge nerated this result transmit bright reference range : <=37. The reference range was not used to interpr et this result as candice l/abnormal. [facility] [id number] 21:46:00 Test Item Value Reference Range Interpretation Comments Alk Phos (test code = Alk Phos) 131 39-[address] [facility] [id number] 21:46:00 Test Item Value Reference Range Interpretation Comments Bili Total (test code = Bili Total) 0.5 0.2-1.3 [facility]2019-07-09 21:46:00 Test Item Value Reference Range Interpretation Comments Glucose Lvl (test code = Glucose Lvl) 340 70-[address] [facility] [id number] 21:46:00 Test Item Value Reference Range Interpretation Comments BUN (test code = BUN) 18 7-22 [facility]2019-07-09 21:46:00 Test Item Value Reference Range Interpretation Comments Creatinine Lvl (test code = Creatinine 0.93 0.50-1.40 Lvl) [facility]2019-07-09 21:46:00 Test Item Value Reference Range Interpretation Comments Albumin Lvl (test code = Albumin Lvl) 3.6 3.5-5.0 [facility]2019-07-09 21:46:00 Test Item Value Reference Range Interpretation Comments ALT (test code = ALT) 35 See_Comment [Auto mated message] The system which ge nerated this result transmit bright reference range : <=65. The reference range was not used to interpr et this result as candice l/abnormal. [facility]2019-07-09 21:46:00 Test Item Value Reference Range Interpretation Comments CO2 (test code = CO2) 28 24-32 [facility]2019-07-09 21:46:00 Test Item Value Reference Range Interpretation Comments Calcium Lvl (test code = Calcium Lvl) 10.7 8.5-10.5 [facility]2019-07-09 21:46:00 Test Item Value Reference Range Interpretation Comments Total Protein (test code = Total 7.7 6.4-8.4 Protein) [facility]2019-07-09 21:46:00 Test Item Value Reference Range Interpretation Comments Sodium Lvl (test code = Sodium Lvl) 134 135-145 [facility]2019-07-09 21:46:00 Test Item Value Reference Range Interpretation Comments Chloride Lvl (test code = Chloride Lvl) 101 95-109 [facility]2019-07-09 21:46:00 Test Item Value Reference Range Interpretation Comments Potassium Lvl (test code = Potassium 4.2 3.5-5.1 Lvl) [facility]2019-07-09 21:46:00 Test Item Value Reference Range Interpretation Comments A/G Ratio (test code = A/G Ratio) 0.9 1 0.7-1.6 [facility]2019-07-09 21:46:00 Test Item Value Reference Range Interpretation Comments Globulin (test code = Globulin) 4.1 2.7-4.2 [facility]2019-07-09 21:46:00 Test Item Value Reference Range Interpretation Comments AGAP (test code = AGAP) 9.2 10.0-20.0 [facility]2019-07-09 21:46:00 Test Item Value Reference Range Interpretation Comments B/C Ratio (test code = B/C Ratio) 19 1 6-25 [facility]2019-07-09 21:46:00 Test Item Value Reference Range Interpretation Comments Lipase Lvl (test code = Lipase Lvl) 131 73-393 [facility] CenterJmbbvgfZXUSMVCQKT2195-96-95 21:46:00 Test Item Value Reference Range Interpretation Comments Basophils # (test code 0.1 See_Comment [Aut omated message] The = Basophils #) system which generated this result tra nsmitted reference range : <=0.2. The reference r chase was not used to int erpret this result as normal/abnormal . [facility] CenterFlvnmlyLKPDOCXGPQ9630-08-64 21:46:00 Test Item Value Reference Range Interpretation Comments Eosinophils # (test code 0.1 See_Comment [A utomated message] The = Eosinophils #) system whic h generated this result tra nsmitted reference range : <=0.5. The reference r chase was not used to int erpret this result as normal/abnormal . [facility] CenterXpfpocnDPGXIRFWUG8567-51-04 21:46:00 Test Item Value Reference Range Interpretation Comments Monocytes # (test code 0.4 See_Comment [Aut omated message] The = Monocytes #) system which generated this result tra nsmitted reference range : <=0.8. The reference r chase was not used to int erpret this result as normal/abnormal . [facility] CenterMfiiixhDMATITHHRI6004-67-79 21:46:00 Test Item Value Reference Range Interpretation Comments Lymphocytes # (test code = Lymphocytes 1.8 1.0-5.5 #) [facility] Cent[id number] 21:46:00 Test Item Value Reference Range Interpretation Comments Neutrophils # (test code = Neutrophils 4.6 1.5-8.1 #) [facility] CenterWdikaagSPLDDUNLFO9986-31-27 21:46:00 Test Item Value Reference Range Interpretation Comments Basophils (test code = 0.6 See_Comment [Aut omated message] The Basophils) system which ge nerated this result tra nsmitted reference range : <=1.0. The reference r chase was not used to int erpret this result as normal/abnormal . [facility] CenterDnxfrhzQGPDCIFXSM9853-55-31 21:46:00 Test Item Value Reference Range Interpretation Comments Eosinophils (test code = 0.9 See_Comment [A utomated message] The Eosinophils) system which ge nerated this result tra nsmitted reference range : <=4.0. The reference r chase was not used to int erpret this result as normal/abnormal . [facility] CenterKhdddxlSDNSNGTDWL1020-68-76 21:46:00 Test Item Value Reference Range Interpretation Comments Monocytes (test code = Monocytes) 6.2 2.0-12.0 [facility] CenterFqfdxafNBKOFWKQUK5744-57-49 21:46:00 Test Item Value Reference Range Interpretation Comments Lymphocytes (test code = Lymphocytes) 25.4 20.0-40.0 [facility] CenterFrlenihJOQCHQFKLQ0300-53-88 21:46:00 Test Item Value Reference Range Interpretation Comments Segs (test code = Segs) 66.9 45.0-75.0 [facility] CenterXejahxbWDYBSIUVFO8460-49-20 21:46:00 Test Item Value Reference Range Interpretation Comments Platelet (test code = Platelet) 277 133-450 [facility] CenterAypyjdwLWWEFFGXXR8143-90-94 21:46:00 Test Item Value Reference Range Interpretation Comments MPV (test code = MPV) 9.5 7.4-10.4 [facility] CenterInajlehSNISCDHUHK1134-92-00 21:46:00 Test Item Value Reference Range Interpretation Comments MCHC (test code = MCHC) 35.4 32.0-36.0 [facility] CenterYtjsjckEIOKBBYXXT9214-05-82 21:46:00 Test Item Value Reference Range Interpretation Comments RDW (test code = RDW) 13.2 11.5-14.5 [facility] CenterCrlichhNOGQYFXSCP9544-94-18 21:46:00 Test Item Value Reference Range Interpretation Comments MCV (test code = MCV) 95.2 80.0-98.0 [facility] CenterJzhkekdSNAWBJAKGI3645-22-09 21:46:00 Test Item Value Reference Range Interpretation Comments MCH (test code = MCH) 33.8 pg 27.0-31.0 [facility] C[id number] 21:46:00 Test Item Value Reference Range Interpretation Comments Hgb (test code = Hgb) 16.8 12.0-16.0 [facility] CenterWsmuuiqZPKAKPMOXD9995-14-45 21:46:00 Test Item Value Reference Range Interpretation Comments Hct (test code = Hct) 47.4 36.0-48.0 [facility] CenterAgnsnwyYMKRPZMNTG4826-39-52 21:46:00 Test Item Value Reference Range Interpretation Comments RBC (test code = RBC) 4.98 4.20-5.40 [facility] CenterOzufseqLOEJVMTYXL4390-44-15 21:46:00 Test Item Value Reference Range Interpretation Comments WBC (test code = WBC) 6.9 3.7-10.4 [facility] CenterKfihaowXIQXROMHQA0263-36-58 21:46:00 Test Item Value Reference Range Interpretation Comments PTT (test code = PTT) 27.0 s 22.9-35.8 [facility] CenterXdutsiwAJDTPXDEEC3177-79-25 21:46:00 Test Item Value Reference Range Interpretation Comments INR (test code = INR) 0.97 1 0.85-1.17 [facility] CenterHrhhqwaHXLKJNGNKX2707-93-35 21:46:00 Test Item Value Reference Range Interpretation Comments PT (test code = PT) 12.7 s 12.0-14.7 [facility] AND [id number] 21:46:00 Test Item Value Reference Range Interpretation Comments UA Nitrite (test code Negative (01/03/19 4:46 = UA Nitrite) PM) [facility] AND [id number] 21:46:00 Test Item Value Reference Range Interpretation Comments UA Leuk Est (test code Small *ABN*(01/03/19 4:46 = UA Leuk Est) PM) [facility] AND [id number] 21:46:00 Test Item Value Reference Range Interpretation Comments UA Protein (test code = UA Protein) 100 mg/dL [facility] AND [id number] 21:46:00 Test Item Value Reference Range Interpretation Comments UA pH (test code = UA pH) 6.0 1 5.0-8.0 [facility] AND [id number] 21:46:00 Test Item Value Reference Range Interpretation Comments UA Mucus (test code = UA Mucus) Few /LPF [facility] AND [id number] 21:46:00 Test Item Value Reference Range Interpretation Comments UA Blood (test code = Negative (01/03/19 4:46 UA Blood) PM) [facility] AND [id number] 21:46:00 Test Item Value Reference Range Interpretation Comments UA Bili (test code = Negative *NA*(01/03/19 UA Bili) 4:46 PM) [facility] AND [id number] 21:46:00 Test Item Value Reference Range Interpretation Comments UA Hyal Cast (test 1 See_Comment [Automat ed message] The code = UA Hyal Cast) system which generated this result transmit bright reference range : <=2. The reference range was not used to interpr et this result as candice l/abnormal. [facility] AND [id number] 21:46:00 Test Item Value Reference Range Interpretation Comments UA WBC (test code = 7 See_Comment [Automa bright message] The UA WBC) system which ge nerated this result transmit bright reference range : <=5. The reference range was not used to interpr et this result as candice l/abnormal. [facility] AND [id number] 21:46:00 Test Item Value Reference Range Interpretation Comments UA RBC (test code = 13 See_Comment [Automa bright message] The UA RBC) system which ge nerated this result transmit bright reference range : <=2. The reference range was not used to interpr et this result as candice l/abnormal. [facility] AND [id number] 21:46:00 Test Item Value Reference Range Interpretation Comments UA Sq Epi (test code = UA Sq Epi) Many /LPF [facility] AND [id number] 21:46:00 Test Item Value Reference Range Interpretation Comments UA Urobilinogen (test code = UA <=1.0 mg/dL 0.1-1.0 Urobilinogen) [facility] AND [id number] 21:46:00 Test Item Value Reference Range Interpretation Comments UA Bradford Yeast (test code = UA Bradford Few /HPF Yeast) [facility] AND [id number] 21:46:00 Test Item Value Reference Range Interpretation Comments UA Glucose (test code = UA Glucose) 500 mg/dL [facility] AND [id number] 21:46:00 Test Item Value Reference Range Interpretation Comments UA Ketones (test code = UA Negative mg/dL Ketones) [facility] AND [id number] 21:46:00 Test Item Value Reference Range Interpretation Comments UA Color (test code = Yellow *NA*(01/03/19 4:46 UA Color) PM) [facility] AND [id number] 21:46:00 Test Item Value Reference Range Interpretation Comments UA Turbidity (test code Slight *ABN*(01/03/19 = UA Turbidity) 4:46 PM) [facility] AND [id number] 21:46:00 Test Item Value Reference Range Interpretation Comments UA Spec Grav (test code = UA Spec 1.027 1 Grav) [facility]2019-07-09 21:46:00 Test Item Value Reference Range Interpretation Comments Procalcitonin Lvl (test code = <0.05 ng/mL <=0.10 Procalcitonin Lvl) [facility]2019-07-09 21:46:00 Test Item Value Reference Range Interpretation Comments Lactic Acid Lvl (test code = Lactic 1.6 0.5-2.2 Acid Lvl) [facility]2019-07-09 21:46:00 Test Item Value Reference Range Interpretation Comments eGFR (test code = eGFR) 68 [facility]2019-07-09 21:46:00 Test Item Value Reference Range Interpretation Comments AST (test code = AST) 21 <=37 [facility]2019-07-09 21:46:00 Test Item Value Reference Range Interpretation Comments Alk Phos (test code = Alk Phos) 131 39-136 [facility]2019-07-09 21:46:00 Test Item Value Reference Range Interpretation Comments Bili Total (test code = Bili Total) 0.5 0.2-1.3 [facility]2019-07-09 21:46:00 Test Item Value Reference Range Interpretation Comments Glucose Lvl (test code = Glucose Lvl) 340 70-99 [facility]2019-07-09 21:46:00 Test Item Value Reference Range Interpretation Comments BUN (test code = BUN) 18 7-22 [facility]2019-07-09 21:46:00 Test Item Value Reference Range Interpretation Comments Creatinine Lvl (test code = Creatinine 0.93 0.50-1.40 Lvl) [facility]2019-07-09 21:46:00 Test Item Value Reference Range Interpretation Comments Albumin Lvl (test code = Albumin Lvl) 3.6 3.5-5.0 [facility]2019-07-09 21:46:00 Test Item Value Reference Range Interpretation Comments ALT (test code = ALT) 35 <=65 [facility]2019-07-09 21:46:00 Test Item Value Reference Range Interpretation Comments CO2 (test code = CO2) 28 24-32 [facility]2019-07-09 21:46:00 Test Item Value Reference Range Interpretation Comments Calcium Lvl (test code = Calcium Lvl) 10.7 8.5-10.5 [facility]2019-07-09 21:46:00 Test Item Value Reference Range Interpretation Comments Total Protein (test code = Total 7.7 6.4-8.4 Protein) [facility]2019-07-09 21:46:00 Test Item Value Reference Range Interpretation Comments Sodium Lvl (test code = Sodium Lvl) 134 135-145 [facility]2019-07-09 21:46:00 Test Item Value Reference Range Interpretation Comments Chloride Lvl (test code = Chloride Lvl) 101 95-109 [facility]2019-07-09 21:46:00 Test Item Value Reference Range Interpretation Comments Potassium Lvl (test code = Potassium 4.2 3.5-5.1 Lvl) [facility]2019-07-09 21:46:00 Test Item Value Reference Range Interpretation Comments A/G Ratio (test code = A/G Ratio) 0.9 1 0.7-1.6 [facility]2019-07-09 21:46:00 Test Item Value Reference Range Interpretation Comments Globulin (test code = Globulin) 4.1 2.7-4.2 [facility]2019-07-09 21:46:00 Test Item Value Reference Range Interpretation Comments AGAP (test code = AGAP) 9.2 10.0-20.0 [facility]2019-07-09 21:46:00 Test Item Value Reference Range Interpretation Comments B/C Ratio (test code = B/C Ratio) 19 1 6-25 [facility]2019-07-09 21:46:00 Test Item Value Reference Range Interpretation Comments Lipase Lvl (test code = Lipase Lvl) 131 73-393 [facility] CenterVweqcofLIKMMWXGVX8742-31-22 21:46:00 Test Item Value Reference Range Interpretation Comments Basophils # (test code = Basophils #) 0.1 <=0.2 [facility] CenterHtmpjmpAVGAGZKZTQ1117-38-62 21:46:00 Test Item Value Reference Range Interpretation Comments Eosinophils # (test code = Eosinophils 0.1 <=0.5 #) [facility] CenterKicwmljSNRFWHRCOO4554-78-10 21:46:00 Test Item Value Reference Range Interpretation Comments Monocytes # (test code = Monocytes #) 0.4 <=0.8 [facility] CenterGnrndmzRJVCXEYODJ2280-21-53 21:46:00 Test Item Value Reference Range Interpretation Comments Lymphocytes # (test code = Lymphocytes 1.8 1.0-5.5 #) [facility] [id number] 21:46:00 Test Item Value Reference Range Interpretation Comments Neutrophils # (test code = Neutrophils 4.6 1.5-8.1 #) [facility]aujyrxQLNYGKDSRC5615-10-57 21:46:00 Test Item Value Reference Range Interpretation Comments Basophils (test code = Basophils) 0.6 <=1.0 [facility] Cent[id number] 21:46:00 Test Item Value Reference Range Interpretation Comments Eosinophils (test code = Eosinophils) 0.9 <=4.0 [facility] Cent[id number] 21:46:00 Test Item Value Reference Range Interpretation Comments Monocytes (test code = Monocytes) 6.2 2.0-12.0 [facility] CenterWjucgoyPFGLNYMNFG5436-17-75 21:46:00 Test Item Value Reference Range Interpretation Comments Lymphocytes (test code = Lymphocytes) 25.4 20.0-40.0 [facility] CenterNtmxeblPNZVDFNFTR6317-47-51 21:46:00 Test Item Value Reference Range Interpretation Comments Segs (test code = Segs) 66.9 45.0-75.0 [facility] CenterHycqyanXYOEKLKMSR5578-06-26 21:46:00 Test Item Value Reference Range Interpretation Comments Platelet (test code = Platelet) 277 133-450 [facility] CenterNwudojkJQDHJTPQLO7462-60-55 21:46:00 Test Item Value Reference Range Interpretation Comments MPV (test code = MPV) 9.5 7.4-10.[address] [facility] CenterBbzxktuVPSBTFHXWA1216-52-09 21:46:00 Test Item Value Reference Range Interpretation Comments MCHC (test code = MCHC) 35.4 32.0-36.0 [facility]TNXGMDFXB2124-13-49 21:46:00 Test Item Value Reference Range Interpretation Comments RDW (test code = RDW) 13.2 11.5-14.5 [facility]LtuixirWHSACPXFBS2819-06-57 21:46:00 Test Item Value Reference Range Interpretation Comments MCV (test code = MCV) 95.2 80.0-98.0 [facility]SspekuoWVGHITUDGQ6887-94-53 21:46:00 Test Item Value Reference Range Interpretation Comments MCH (test code = MCH) 33.8 pg 27.0-31.0 [facility]TlvbqcmRIPVSRVLVE4920-39-99 21:46:00 Test Item Value Reference Range Interpretation Comments Hgb (test code = Hgb) 16.8 12.0-16.0 [facility]CvupkxkEBWAUKSSQC6870-79-08 21:46:00 Test Item Value Reference Range Interpretation Comments Hct (test code = Hct) 47.4 36.0-48.0 [facility] HospitalCvulcsfROWMMVWSSZ6480-96-29 21:46:00 Test Item Value Reference Range Interpretation Comments RBC (test code = RBC) 4.98 4.20-5.40 [facility]KgrbnutBVFDPBPRIV5927-01-44 21:46:00 Test Item Value Reference Range Interpretation Comments WBC (test code = WBC) 6.9 3.7-10.4 [facility] HospitalIvoxsbgBGQROLPZHE3578-26-81 21:46:00 Test Item Value Reference Range Interpretation Comments PTT (test code = PTT) 27.0 s 22.9-35.[address] [facility] [address] [id number] 21:46:00 Test Item Value Reference Range Interpretation Comments INR (test code = INR) 0.97 1 0.85-1.17 [facility] HospitalXpfjadtBNFFPJTAZB7603-47-09 21:46:00 Test Item Value Reference Range Interpretation Comments PT (test code = PT) 12.7 s 12.0-14.7 [facility]2019-07-09 21:46:00 Test Item Value Reference Range Interpretation Comments UA Nitrite (test code Negative (01/03/19 4:46 = UA Nitrite) PM) [facility] [id number] 21:46:00 Test Item Value Reference Range Interpretation Comments UA Leuk Est (test code Small *ABN*(01/03/19 4:46 = UA Leuk Est) PM) [facility] [id number] 21:46:00 Test Item Value Reference Range Interpretation Comments UA Protein (test code = UA Protein) 100 mg/dL [facility] [id number] 21:46:00 Test Item Value Reference Range Interpretation Comments UA pH (test code = UA pH) 6.0 1 5.0-8.0 [facility] [id number] 21:46:00 Test Item Value Reference Range Interpretation Comments UA Mucus (test code = UA Mucus) Few /LPF [facility] [id number] 21:46:00 Test Item Value Reference Range Interpretation Comments UA Blood (test code = Negative (01/03/19 4:46 UA Blood) PM) [facility] [id number] 21:46:00 Test Item Value Reference Range Interpretation Comments UA Bili (test code = Negative *NA*(01/03/19 UA Bili) 4:46 PM) [facility] [id number] 21:46:00 Test Item Value Reference Range Interpretation Comments UA Hyal Cast (test code = UA Hyal Cast) 1 <=2 [facility] [id number] 21:46:00 Test Item Value Reference Range Interpretation Comments UA WBC (test code = UA WBC) 7 <=5 [facility] [id number] 21:46:00 Test Item Value Reference Range Interpretation Comments UA RBC (test code = UA RBC) 13 <=2 [facility] [id number] 21:46:00 Test Item Value Reference Range Interpretation Comments UA Sq Epi (test code = UA Sq Epi) Many /LPF [facility] [id number] 21:46:00 Test Item Value Reference Range Interpretation Comments UA Urobilinogen (test code = UA <=1.0 mg/dL 0.1-1.0 Urobilinogen) [facility] [id number] 21:46:00 Test Item Value Reference Range Interpretation Comments UA Bradford Yeast (test code = UA Bradford Few /HPF Yeast) [facility] AND [id number] 21:46:00 Test Item Value Reference Range Interpretation Comments UA Glucose (test code = UA Glucose) 500 mg/dL [facility] AND [id number] 21:46:00 Test Item Value Reference Range Interpretation Comments UA Ketones (test code = UA Negative mg/dL Ketones) [facility] AND [id number] 21:46:00 Test Item Value Reference Range Interpretation Comments UA Color (test code = Yellow *NA*(01/03/19 4:46 UA Color) PM) [facility] AND [id number] 21:46:00 Test Item Value Reference Range Interpretation Comments UA Turbidity (test code Slight *ABN*(01/03/19 = UA Turbidity) 4:46 PM) [facility] AND [id number] 21:46:00 Test Item Value Reference Range Interpretation Comments UA Spec Grav (test code = UA Spec 1.027 [address]) [facility]
[2023-04-09 12:57] LABS: Absolute Lymphocytes (CBC) 1.7 K/uL (0.7-4.9); Hematocrit 29.9 % (36.0-45.0); Lymphocytes % 18.1 % (15.3-44.8); MCV 94.2 fL (80-100); MPV 7.5 fL (7.6-11.3); Platelets 410 thou/uL (152-406); RBC Red Blood Cell Count 3.17 M/uL (3.86-4.86)
[2023-04-09 13:02] LABS: Specific Gravity 1.016 (1.005-1.030); Urine Bacteria <20 /HPF (<20); Urine Bilirubin NEGATIVE (Negative); Urine Blood 1+ (Negative); Urine Clarity Extremely Turbid (Clear); Urine Color Light-Yellow (Yellow); Urine Glucose 3+ (Negative); Urine Mucus Slight /HPF (None Seen); Urine Protein 3+ (Negative); Urine RBC <5 /HPF (None Seen); Urine Urobilinogen Normal (Normal); Urine pH 6.5 (5.0-7.0)
[2023-04-09 13:12] LABS: Albumin 1.2 g/dL (3.4-5.0); Bilirubin Total 0.1 mg/dL (0.2-1.0); Potassium 3.8 mEq/L (3.5-5.1); Protein, Total 4.4 g/dL (6.4-8.2)
--- NOTE | 2023-04-09 13:48 | RAD REPORT ---
EXAM DESCRIPTION: CT - Pelvis W/Cont - 04/09/2023 1:32 pm CLINICAL HISTORY: Pelvic pain COMPARISON: September 2022 TECHNIQUE: Computed axial tomography of the pelvis was obtained. One hundred Isovue-[address] scans are performed using dose optimization technique as appropriate and may include automated exposure control or mA/KV adjustment according to patient size. FINDINGS: Moderate diffuse increased density is present within the subcutaneous tissues of the left anterior subcutaneous fat of the pelvis and subcutaneous fat right buttocks. Diffuse increased densit y extends within the subcutaneous tissues of the lower extremities. Anterior perineum also involved A soft tissue abscess is not visualized. Thickening of the bladder wall with an air bubble. No evidence of diverticulitis. No adnexal mass. Moderate right ventral hernia contains a loop of nondilated small bowel within the pelvis IMPRESSION: Diffuse increased density within the subcutaneous tissues probably a cellulitis No abscess visualized Thickened bladder wall containing an air bubble may indicate infection
[2023-04-09] MEDS ORDERED: VANCOMYCIN 1 GM/VIAL ONE (15:13)
[2023-04-09] MEDS ORDERED: NA CHLORIDE 0.9% 250 ML ONE ×2 (15:13→21:12)
[2023-04-09 15:14] LABS: Troponin High Sensitivity 9.9 pg/mL (<58.9)
--- NOTE | 2023-04-09 15:28 | RAD REPORT ---
EXAM DESCRIPTION: [facility] Single View04/09/2023 2:45 pm CLINICAL HISTORY: Chest pain COMPARISON: none FINDINGS: The lungs appear clear of acute infiltrate. The heart is normal size IMPRESSION: No acute abnormalities displayed
--- NOTE | 2023-04-09 16:17 | ER ---
Nurse's Notes [facility] Name: Jacy Alvarez Age: 63 yrs Sex: Female : 1960 Arrival Date: 04/09/2023 Time: 12:15 Bed 5 Private MD: Diagnosis: Chest pain, unspecified;Generalized edema;Cellulitis of mons pubis Presentation: 04/09 12:17 Chief complaint: EMS states: Pain with urination and rash on groin x 1 month. Pt hb incontinent and bed bound. Coronavirus screen: At this time, the client does not indicate any symptoms associated with coronavirus-19. Ebola Screen: No symptoms or risks identified at this time. Initial Sepsis Screen: Does the patient meet any 2 criteria? No. Patient's initial sepsis screen is negative. Does the patient have a suspected source of infection? No. Patient's initial sepsis screen is negative. Risk Assessment: Do you want to hurt yourself or someone else? Patient reports no desire to harm self or others. Onset of symptoms was February 2023. 12:17 Method Of Arrival: EMS: [facility] hb 12:17 Acuity: ROSALIE 3 hb Historical: - Allergies: 12:19 Sulfa (Sulfonamide Antibiotics); hb - PMHx: 12:19 Cerebrovascular accident; diabetes mellitus; Hypercholesterolemia; Hypertensive hb disorder; - PSHx: 12:19 colostomy with reversal; hb - Immunization history:: Adult Immunizations up to date. - Social history:: Smoking status: Patient denies any tobacco usage or history of. - Family history:: not pertinent. Screenin:49 [facility] ED Fall Risk Assessment (Adult) History of falling in the last 3 months, ld1 including since admission No falls in past 3 months (0 pts). Abuse screen: Denies threats or abuse. Denies injuries from another. Nutritional screening: No deficits noted. Tuberculosis screening: No symptoms or risk factors identified. Assessment: 12:49 General: Appears in no apparent distress. comfortable, Behavior is calm, cooperative, ld1 appropriate for age. Pain: Denies pain. Neuro: Level of Consciousness is awake, alert, obeys commands, Oriented to person, place, time, situation. Cardiovascular: Capillary refill < 3 seconds Patient's skin is warm and dry. Respiratory: Airway is patent Respiratory effort is even, unlabored. GI: Abdomen is round non-distended. : Urine is clear. EENT: No signs and/or symptoms were reported regarding the EENT system. Derm: No signs and/or symptoms reported regarding the dermatologic system. Musculoskeletal: No signs and/or symptoms reported regarding the musculoskeletal system. 14:05 Reassessment: Patient appears in no apparent distress at this time. No changes from ld1 previously documented assessment. Patient and/or family updated on plan of care and expected duration. Pain level reassessed. Patient is alert, oriented x 3, equal unlabored respirations, skin warm/dry/pink. Vital Signs: 12:17 BP 136 / 75; Pulse 98; Resp 16; Temp 98(O); Pulse Ox 97% on R/A; Pain 5/10; hb 12:49 BP 165 / 70; Pulse 73; Resp 20; Pulse Ox 97% on R/A; ld1 14:05 BP 193 / 80; Pulse 71; Resp 18; Pulse Ox 98% on R/A; ld1 15:14 BP 181 / 90; Pulse 76; Resp 18; Pulse Ox 94% on R/A; ld1 17:02 BP 192 / 77; Pulse 69; Resp 18; Pulse Ox 99% on R/A; ph 12:17 Pain Scale: Adult hb ED Course: 12:16 Patient arrived in ED. hb 12:17 Raj Ferguson MD is Attending Physician. rt 12:18 Triage completed. hb 12:19 Arm band placed on. hb 12:48 Adeline Bell, RN is Primary Nurse. ld1 12:49 Patient has correct armband on for positive identification. Placed in gown. Bed in low ld1 position. Call light in reach. Side rails up X2. playground monitor on. Pulse ox on. NIBP on. Door closed. Noise minimized. Warm blanket given. 12:49 No provider procedures requiring assistance completed. Inserted saline lock: 20 gauge ld1 in right antecubital area, using aseptic technique. Blood collected. 12:52 UAM Sent. ld1 12:52 CMP Sent. ld1 12:52 CBC with Diff Sent. ld1 13:34 CT Pelvis w cont In Process Unspecified. EDMS 14:47 Chest Single View XRAY In Process Unspecified. EDMS 15:04 Troponin High Sensitivity Sent. ld1 15:04 BNP Sent. ld1 16:16 Vineet Henderson MD is Hospitalizing Provider. rt 17:29 Cleaned of incontinence. Linen changed. ld1 18:32 Patient admitted, IV remains in place. ld1 Administered Medications: 15:04 Drug: vancoMYCIN IVPB 1 grams IVPB once over 2 hrs Route: IVPB; Infused Over: 2 hrs; ld1 Site: right antecubital; Medication: 12:49 VIS not applicable for this client. ld1 Outcome: 16:16 Decision to Hospitalize by Provider. rt 18:31 Admitted to Med/surg accompanied by edgar, Report called to ZENAIDA Tatum ld1 18:31 Condition: stable 18:31 Instructed on the need for admit, 18:56 Patient left the ED. ld1 Signatures: Dispatcher [employer] EDConcepcion Sandhu RN RN Anh Lofton RN RN hb Sims, Lauren, RN RN ld1 Raj Ferguson MD MD rt
--- NOTE | 2023-04-09 16:17 | EDPHYS ---
Physician Documentation [facility] Name: Jacy Alvarez Age: 63 yrs Sex: Female : 1960 Arrival Date: 04/09/2023 Time: 12:15 Bed 5 Private MD: ED Physician Raj Ferguson HPI: 04/09 12:31 This 63 yrs old Female presents to ER via EMS with complaints of Urinary rt Problem. 12:31 Patient is bedbound incontinent of urine presents to the ED with pain around the skin rt surrounding the vagina for about 1 month now. She has been seen here, was prescribed Diflucan for vulvovaginal candidiasis. States that the symptoms continue to worsen. She is concerned that she has an abscess. Denies other acute complaints at this time, symptoms are moderate severity, no other aggravating alleviating factors.. Historical: - Allergies: 12:19 Sulfa (Sulfonamide Antibiotics); hb - PMHx: 12:19 Cerebrovascular accident; diabetes mellitus; Hypercholesterolemia; Hypertensive hb disorder; - PSHx: 12:19 colostomy with reversal; hb - Immunization history:: Adult Immunizations up to date. - Social history:: Smoking status: Patient denies any tobacco usage or history of. - Family history:: not pertinent. ROS: 12:31 Constitutional: Negative for fever, chills, and weight loss, Cardiovascular: Negative rt for chest pain, palpitations, and edema, Respiratory: Negative for shortness of breath, cough, wheezing, and pleuritic chest pain, Abdomen/GI: Negative for abdominal pain, nausea, vomiting, diarrhea, and constipation, Neuro: Negative for headache, weakness, numbness, tingling, and seizure, Psych: Negative for depression, anxiety, suicide ideation, homicidal ideation, and hallucinations, 12:31 : Positive for burning with urination, Negative for hematuria, 12:31 Skin: Positive for Pain, redness, Exam: 12:31 Constitutional: This is a well developed, well nourished patient who is awake, alert, rt and in no acute distress. Head/Face: Normocephalic, atraumatic. Chest/axilla: Normal chest wall appearance and motion. Nontender with no deformity. No lesions are appreciated. Cardiovascular: Regular rate and rhythm with a normal S1 and S2. No gallops, murmurs, or rubs. Normal PMI, no JVD. No pulse deficits. Respiratory: Lungs have equal breath sounds bilaterally, clear to auscultation and percussion. No rales, rhonchi or wheezes noted. No increased work of breathing, no retractions or nasal flaring. Abdomen/GI: Soft, non-tender, with normal bowel sounds. No distension or tympany. No guarding or rebound. No evidence of tenderness throughout. Neuro: Awake and alert, GCS 15, oriented to person, place, time, and situation. Cranial nerves II-XII grossly intact. Motor strength 5/5 in all extremities. Sensory grossly intact. Cerebellar exam normal. Normal gait. Psych: Awake, alert, with orientation to person, place and time. Behavior, mood, and affect are within normal limits. 12:31 : Mild swelling to the mons pubis, minimal erythema at that region. On the legs proximal at the groin, there is hyperpigmentation, small mount of induration with ulceration bilaterally. No surrounding erythema. No areas of fluctuance., 17:49 ECG was reviewed by the Attending Physician. rt Vital Signs: 12:17 BP 136 / 75; Pulse 98; Resp 16; Temp 98(O); Pulse Ox 97% on R/A; Pain 5/10; hb 12:49 BP 165 / 70; Pulse 73; Resp 20; Pulse Ox 97% on R/A; ld1 14:05 BP 193 / 80; Pulse 71; Resp 18; Pulse Ox 98% on R/A; ld1 15:14 BP 181 / 90; Pulse 76; Resp 18; Pulse Ox 94% on R/A; ld1 17:02 BP 192 / 77; Pulse 69; Resp 18; Pulse Ox 99% on R/A; ph 12:17 Pain Scale: Adult hb MDM: 12:17 Patient medically screened. rt 17:49 Differential Diagnosis Cellulitis, abscess, vulvovaginitis, acute ND, pneumonia, CHF. rt Data reviewed: vital signs, nurses notes, lab test result(s), EKG, radiologic studies. Consideration of Admission/Observation Patient was admitted/placed on observation. Management of patient was discussed with the following: Hospitalist: Agrees to admit. I considered the following discharge prescriptions or medication management in the emergency department Medications were administered in the Emergency Department. See MAR. Care significantly affected by the following chronic conditions: Diabetes. Counseling: I had a detailed discussion with the patient and/or guardian regarding the historical points, exam findings, and any diagnostic results supporting the discharge/admit diagnosis, lab results, radiology results, the need for further work-up and treatment in the hospital. ED course: Patient subsequently reported having chest pains today, currently resolved, worsening edema. It does seem that the family 7 difficulty take care of the patient at home, with that she would be well suited for placement. Will admit patient for chest pain, possible placement.. 04/09 12:18 Order name: CBC with Diff; Complete Time: 13:18 rt 04/09 12:18 Order name: CMP; Complete Time: 13:18 rt 04/09 12:18 Order name: UAM; Complete Time: 13:18 rt 04/09 14:34 Order name: Troponin High Sensitivity; Complete Time: 15:39 rt 04/09 14:34 Order name: BNP; Complete Time: 15:39 rt 04/09 16:27 Order name: Basic Metabolic Panel EDMS 04/09 16:27 Order name: Basic Metabolic Panel EDMS 04/09 16:27 Order name: Basic Metabolic Panel EDMS 04/09 16:27 Order name: Basic Metabolic Panel EDMS 04/09 16:27 Order name: CBC with Automated Diff EDMS 04/09 16:27 Order name: CBC with Automated Diff EDMS 04/09 16:27 Order name: CBC with Automated Diff EDMS 04/09 16:27 Order name: CBC with Automated Diff EDMS 04/09 16:27 Order name: Lipid Profile EDMS 04/09 16:27 Order name: Lipid Profile EDMS 04/09 16:27 Order name: Magnesium EDMS 04/09 16:27 Order name: Magnesium EDMS 04/09 16:27 Order name: Magnesium EDMS 04/09 16:27 Order name: Magnesium EDMS 04/09 16:27 Order name: Phosphorus EDMS 04/09 16:27 Order name: Phosphorus EDMS 04/09 16:27 Order name: Phosphorus EDMS 04/09 16:27 Order name: Phosphorus EDMS 04/09 16:36 Order name: Troponin High Sensitivity EDMS 04/09 16:36 Order name: Troponin High Sensitivity EDMS 04/09 16:36 Order name: Troponin High Sensitivity EDMS 04/09 16:36 Order name: Troponin High Sensitivity EDMS 04/09 16:36 Order name: Troponin High Sensitivity EDMS 04/09 16:55 Order name: Vancomycin Level Trough EDMS 04/09 16:55 Order name: Vancomycin Peak EDMS 04/09 12:18 Order name: CT Pelvis w cont; Complete Time: 13:51 rt 04/09 14:34 Order name: Chest Single View XRAY; Complete Time: 15:39 rt 04/09 16:36 Order name: Echo with Doppler EDMS 04/09 14:34 Order name: EKG; Complete Time: 14:35 rt 04/09 16:27 Order name: EKG Electrocardiogram EDMS 04/09 14:34 Order name: EKG - Nurse/Tech; Complete Time: 14:43 rt EC:49 Rate is 70 beats/min. Rhythm is regular, Normal Sinus Rhythm with Right bundle branch rt block. QRS [place] is Normal. CA interval is normal. QRS interval is normal. QT interval is normal. No Q waves. Administered Medications: 15:04 Drug: vancoMYCIN IVPB 1 grams IVPB once over 2 hrs Route: IVPB; Infused Over: 2 hrs; ld1 Site: right antecubital; Disposition Summary: 04/09/23 16:16 Hospitalization Ordered Notes: Hospitalization Status: Observation rt Provider: Vineet Henderson rt [facility] rt Condition: Stable rt Problem: new rt Symptoms: are unchanged rt Bed/Room Type: Standard rt Room Assignment: 232(04/09/23 17:21) eb Diagnosis - Chest pain, unspecified rt - Generalized edema rt - Cellulitis of mons pubis rt Forms: - Medication Reconciliation Form rt - SBAR form rt - Leadership Thank You Letter rt Signatures: Dispatcher [employer] EDMS Anh Crisostomo RN RN Lucita Remy Lauren, RN RN ld1 Raj Ferguson MD MD rt Corrections: (The following items were deleted from the chart) 17:21 16:16 rt eb
[2023-04-09] MEDS ORDERED: MORPHINE 4 MG/ML SYR IV PRN (16:26)
[2023-04-09] MEDS ORDERED: NITROGLYCERIN 0.4 MG/TAB SL PRN (16:26)
[2023-04-09] MEDS: INSULIN REGULAR (HUMAN) 100 UNIT/ML SQ SCH ×2 (16:30→20:49)
--- NOTE | 2023-04-09 16:47 | P.HP ---
Certification for Inpatient With expected LOS: <2 Midnights Patient will require the following post-hospital care: None Practitioner: I am a practitioner with admitting privileges, knowledge of patient current condition, hospital course, and medical plan of care. Services: Services provided to patient in accordance with Admission requirements found in Title 42 Section 412.3 of the Code of Federal Regulations Patient History Date of Service: 04/09/23 Reason for admission: Chest pain abdominal wall cellulitis History of Present Illness: AndrésRenuJacy 63-year-old female with a history of CVA , left-sided hemiplegia diabetes mellitus insulin-dependent, hyperlipidemia, hypertensive disorder. Patient came to the ER with a complaint of pain around the skin lower abdominal area and chest pain for almost 1 month. Patient denies fever chills or dizziness, patient the pain also extends to the chest area. Patient denies shortness of breath, pain while breathing, patient reports that she has not known healing abscess on her lower abdominal area after the closure of her colostomy some years ago patient denies current diarrhea or constipation, patient reports that she has not able to eat anything all day and she did not take any of her medications. ED course;ital Signs: BP 136 / 75; Pulse 98; Resp 16; Temp 98(O); Pulse Ox 97% on R/A; Pain 5/10; lab work significant for BUN 22, blood glucose 146, BNP 360, CT pelvis shows left anterior pelvis wall cellulitis. Planning to admit the patient for the diagnosis of chest pain unspecified, generalized edema, cellulitis of mons pubis. Allergies Sulfa (Sulfonamide Antibiotics) Allergy (Verified 10/18/22 16:05) Hives/Rash Home medications list reviewed: Yes Home Medications: Aspirin [Aspirin EC 81 MG] 81 mg PO DAILY 10/18/22 Atorvastatin Calcium [Lipitor] 80 mg PO BEDTIME 10/18/22 Carvedilol [Coreg] 12.5 mg PO BID 10/18/22 Furosemide 40 mg PO PRN 10/18/22 Gabapentin 400 mg PO TID 10/18/22 Insulin Glargine,Hum.rec.anlog [Lantus] 23 units SQ BEDTIME 10/18/22 Insulin Lispro [Humalog] 17 units SQ BEDTIME 10/18/22 Irbesartan/Hydrochlorothiazide [Avalide 150-12.5 mg Tablet] 1 tab PO BEDTIME 10/18/22 Metformin ER [Glucophage ER*] 500 mg PO BID 10/18/22 Sertraline [Zoloft*] 100 mg PO DAILY 10/18/22 Tamsulosin [Flomax*] 0.4 mg PO BEDTIME 10/18/22 Temazepam 15 mg PO PRN 10/18/22 Tramadol HCl [Ultram] 50 mg PO PRN 10/18/22 levoFLOXacin [Levaquin*] 750 mg PO DAILY 6 Days #6 tab 10/22/22 - Past Medical/Surgical History Diabetic: Yes -: Diabetes mellitus type -: CVA with right hemiplegia -: Hypertension -: Hyperlipidemia -: Recurrent UTI -: Closure of colostomy - Family History Mother -: Diabetes - Social History Smoking Status: Never smoker Alcohol use: No CD- Drugs: No Caffeine use: No Review of Systems 10-point ROS is otherwise unremarkable General: Unremarkable Eyes: Unremarkable ENT: Unremarkable Respiratory: Unremarkable Cardiovascular: Chest Pain, Edema (Left lower extremity 3+ edema), Other (Reports that patient has chest pain and abdominal pain for last 1) Gastrointestinal: Other (Abdominal wall cellulitis on the lower abdomen) Genitourinary: Incontinence Musculoskeletal: Atrophy, Other (Left hemiplegia) Integumentary: Other (Cellulitis of abdominal wall) Neurological: Weakness, Other (Left hemiplegia) Physical Examination - Physical Exam General: Alert, Oriented x2 HEENT: Atraumatic, Normocephalic, PERRLA Neck: 2+ carotid pulse no bruit Respiratory: Diminished (At the bases) Cardiovascular: Normal pulses, Regular rate/rhythm, Normal S1 S2, Edema (Left lower extremity 2+ edema) Capillary refill: <2 Seconds Gastrointestinal: Normal bowel sounds Musculoskeletal: No erythema, No tenderness, Swelling (Left lower extremity), Other (Bed t confined due to left heraclio-) Integumentary: Skin lesion (Nonhealing wound on the lower abdomen), Other (Drainage from the wound on the lower abdomen) Neurological: Normal tone, Sensation intact, Abnormal gait - Studies Laboratory Data (last 24 hrs) 04/09/23 04/09/23 12:46 12:46 WBC 9.60 Hgb 10.2 L Hct 29.9 L Plt Count 410 H Sodium 142 Potassium 3.8 BUN 22 H Creatinine 0.98 Glucose 146 H Total Bilirubin 0.1 L AST 19 ALT 16 Alkaline Phosphatase 123 H Assessment and Plan - Plan Assessment and plan Chest pain CAD Abdominal wall cellulitis CVA, left hemiplegia Left lower extremity edema Diabetes mellitus type 2, insulin-dependent Hypertension Hyperlipidemia Recurrent UTI Assessment and plan Chest pain CAD Chest Pain CAD concern for Acute Coronary Syndrome (Non-ST Segment Elevation Myocardial Infarction) Based on history and physical examination, cannot exclude ischemia as a possible etiology of chest pain. Other differential diagnoses include, but are not limited to, pulmonary embolism, pericarditis, myocarditis, gastroesophageal reflux disease, gastritis/esophagitis, esophageal spasms, pneumonia, pleuritic chest pain, and musculoskeletal chest pain (i.e. costochondritis). - EKG: No obvious ST segment changes, trend - Serial troponin , initial troponin 9.9 - Ordered transthoracic echocardiogram - Ordered chest x-ray - Ordered d-dimer - Management plan: - Consult Cardiology -discussed with Dr. Mcwilliams - S/P aspirin 324 mg PO x 1 in ED - Start daily baby aspirin - Symptom control with PRN acetaminophen, nitroglycerin, morphine - plan to start beta-misael, KOSTAS-inhibitor/ARB, statin with 24 hours Abdominal wall cellulitis * Chronic nonhealing wound on the lower abdomen, small size wound is draining continuously clear to cream-colored drainage * No fever no chills * Wound care consult * Broad-spectrum antibiotic ordered I * Admitting to the hospital CVA, left hemiplegia * Chronic, continue continue the current management * OT PT eval and treat Left lower extremity edema: * Chronic, leg elevation * Resume home medication including diuretic Diabetes mellitus type 2, insulin-dependent * Chronic, controlled on insulin * Blood sugar check before meals and at bedtime with low-dose sliding scale ordered * Hypoglycemic precaution * Diabetic diet Hypertension * Chronic uncontrolled * Patient reports that she did not take any of her medications today * Resume home medications * Pressure is very high at this time 188 systolic * Hydralazine 10 mg IV push x1 * Will continue to monitor the blood pressure closely. Call for blood pressure sustained above 1 160/90 Hyperlipidemia * Chronic controlled on statins * Low-fat low-cholesterol diet * Resume home medications Recurrent UTI: * Chronic, repeated UTIs in the past * Continue to monitor CODE STATUS: Full code DVT prophylaxis: Lovenox Diet diabetic low-salt low-cholesterol - Advance Directives Does patient have a Living Will: No Does patient have a Durable POA for Healthcare: No
[2023-04-09] MEDS ORDERED: ASPIRIN 325 MG TAB PO ONE (16:48)
[2023-04-09] MEDS ORDERED: HYDRALAZINE HCL 20 MG/ML VIAL IV ONE (17:08)
[2023-04-09 17:23] LABS: Absolute Lymphocytes (CBC) 2.2 K/uL (0.7-4.9); Hematocrit 27.5 % (36.0-45.0); Lymphocytes % 25.3 % (15.3-44.8); MPV 7.7 fL (7.6-11.3); Platelets 378 thou/uL (152-406); RBC Red Blood Cell Count 2.92 M/uL (3.86-4.86)
[2023-04-09 17:36] LABS: Magnesium 1.6 mg/dL (1.6-2.4); Phosphorus 3.2 mg/dL (2.5-4.9); Potassium 3.6 mEq/L (3.5-5.1)
[2023-04-09] MEDS ORDERED: VANCOMYCIN 250 MG in NA CHLORIDE 0.9% 100 ML IVPB ONE (19:45)
[2023-04-09 20:09] VITALS: BMI 30.1
[2023-04-09] MEDS: CEFEPIME 2 GM in NA CHLORIDE 0.9% 100 ML IV SCH (20:45)
[2023-04-09] MEDS: ENOXAPARIN 40 MG/0.4 ML SQ SCH (20:47)
[2023-04-09] MEDS: ACETAMINOPHEN 500 MG TAB PO PRN (20:47)
[2023-04-09] MEDS: METOPROLOL TAR 50 MG TAB PO SCH (20:48)
[2023-04-09] MEDS ORDERED: ENOXAPARIN 100 MG/ML SYR SQ SCH (21:00)
[2023-04-10] MEDS: INSULIN REGULAR (HUMAN) 100 UNIT/ML SQ SCH ×4 (07:30→21:00)
[2023-04-10] MEDS: lisinopriL 20 MG TAB PO SCH (09:00)
[2023-04-10] MEDS: METOPROLOL TAR 50 MG TAB PO SCH ×2 (09:35→21:57)
[2023-04-10] MEDS: ENOXAPARIN 40 MG/0.4 ML SQ SCH (09:35)
[2023-04-10] MEDS: ASPIRIN EC 81 MG TAB PO SCH (09:35)
[2023-04-10] MEDS: CEFEPIME 2 GM in NA CHLORIDE 0.9% 100 ML IV SCH ×2 (09:36→21:57)
[2023-04-10] MEDS: ACETAMINOPHEN 500 MG TAB PO PRN ×2 (09:50→13:43)
--- NOTE | 2023-04-10 10:52 | P.PN ---
Subjective Date of Service: 04/10/23 Primary Care Provider: Vineet Camacho Chief Complaint: Chest pain abdominal wall cellulitis Subjective: No new changes, No C/O voiced, Tolerating diet, Ambulating, Worsening Alert oriented Breathing normally on room air Acute distress Denies any pain or discomfort at this time Abdominal wound not draining anymore Discussed with the nursing staff <Kendell Romeo - Last Filed: 04/10/23 10:47> Date of Service: 04/10/23 <Vineet Henderson - Last Filed: 04/10/23 22:01> Review of Systems 10-point ROS is otherwise unremarkable General: Weakness Eyes: Unremarkable ENT: Unremarkable Respiratory: Unremarkable Cardiovascular: Other (Left lower extremity edema 3+ pitting), Unremarkable Gastrointestinal: Other (Abdominal wall cellulitis) Musculoskeletal: Other (Bed confined with a left-sided hemiplegia) Integumentary: Other (Very small wound on the lower abdominal area ) <Kendell Romeo - Last Filed: 04/10/23 10:47> Physical Examination - Vital Signs Temperature: 97.2 F Blood Pressure: 157/75 Pulse: 63 Respirations: 16 Pulse Ox (%): 97 - Physical Exam General: Alert, In no apparent distress, Cooperative HEENT: Atraumatic, Normocephalic, PERRLA Neck: Supple, 2+ carotid pulse no bruit Respiratory: Clear to auscultation bilaterally, Normal air movement Cardiovascular: Normal pulses, Regular rate/rhythm, Normal S1 S2, Edema (Left lower extremity edema 3+ pitting) Capillary refill: <2 Seconds Gastrointestinal: Normal bowel sounds, No ascites, No tenderness, No masses, No rebound, No guarding, Other (Small nonhealing wound on right lower abdominal wall) Neurological: Other (Bed confined) - Studies Laboratory Data (last 24 hrs) 04/09/23 04/09/23 12:46 12:46 WBC 9.60 Hgb 10.2 L Hct 29.9 L Plt Count 410 H Sodium 142 Potassium 3.8 BUN 22 H Creatinine 0.98 Glucose 146 H Total Bilirubin 0.1 L AST 19 ALT 16 Alkaline Phosphatase 123 H <Kendell Romeo - Last Filed: 04/10/23 10:47> Assessment And Plan - Plan Assessment and plan Chest pain CAD Abdominal wall cellulitis CVA, left hemiplegia Left lower extremity edema Diabetes mellitus type 2, insulin-dependent Hypertension Hyperlipidemia Recurrent UTI Assessment and plan Chest pain CAD Chest Pain CAD concern for Acute Coronary Syndrome (Non-ST Segment Elevation Myocardial Infarction) Based on history and physical examination, cannot exclude ischemia as a possible etiology of chest pain. Other differential diagnoses include, but are not limited to, pulmonary embolism, pericarditis, myocarditis, gastroesophageal reflux disease, gastritis/esophagitis, esophageal spasms, pneumonia, pleuritic chest pain, and musculoskeletal chest pain (i.e. costochondritis). - EKG: No obvious ST segment changes, trend - Serial troponin , initial troponin 9.9 - Ordered transthoracic echocardiogram - Ordered chest x-ray - Ordered d-dimer - Management plan: - Consult Cardiology -discussed with Dr. Mcwilliams - S/P aspirin 324 mg PO x 1 in ED - Start daily baby aspirin - Symptom control with PRN acetaminophen, nitroglycerin, morphine - plan to start beta-misael, KOSTAS-inhibitor/ARB, statin with 24 hours Abdominal wall cellulitis * Improving nonhealing wound on the lower abdomen, small size wound no more drainage * No fever no chills * Wound care consult * Broad-spectrum antibiotic to be continued CVA, left hemiplegia * Chronic, continue continue the current management * OT PT eval and treat Left lower extremity edema: * Chronic, leg elevation * Resume home medication including diuretic Diabetes mellitus type 2, insulin-dependent * Chronic, controlled on insulin * Blood sugar check before meals and at bedtime with low-dose sliding scale ordered * Hypoglycemic precaution * Diabetic diet Hypertension * Chronic improving * Patient reports that she did not take any of her medications today * Resume home medications * Pressure is very high at this time 188 systolic * Hydralazine 10 mg IV push x1 * Will continue to monitor the blood pressure closely. Call for blood pressure sustained above 1 160/90 Hyperlipidemia * Chronic controlled on statins * Low-fat low-cholesterol diet * Resume home medications Recurrent UTI: * Chronic, repeated UTIs in the past * Continue to monitor CODE STATUS: Full code DVT prophylaxis: Lovenox Diet diabetic low-salt low-cholesterol <Kendell Romeo - Last Filed: 04/10/23 10:47> - Plan Improving feels small improvement of groin swelling/pain chest pain continues, at rest cardiology consulted, can't r/o UA; pain radiates to left side; story /description concerning echo and stress test on Wednesday <Vineet Henderson - Last Filed: 04/10/23 22:01>
[2023-04-10] MEDS ORDERED: INFLUENZA VACCINE (for 6+ mo) 0.5 ML DOSE IMVAC ONE (15:00)
[2023-04-10] MEDS: VANCOMYCIN 1.5 GM in NA CHLORIDE 0.9% 500 ML IVPB SCH (15:11)
--- NOTE | 2023-04-10 16:05 | CON ---
Date of Consultation: 04/10/2023 Reason For Consultation: Chest pain. History Of Present Illness: 63-year-old female, history of CVA, left-sided hemiplegia, diabetic, hyp erlipidemia, hypertension, presented to the emergency room with pain to the lower abdomen. Diagnosed with cellulitis and was admitted. However, she has been complaining of having chest pain, left-side d, radiates to the left arm. She had one episode, this morning. No chest pain at the present time. There is no known history of coronary artery disease. Past Medical History: As outlined above in the HPI. Medications: Refer to reconciliation sheet for detailed list. Allergies: SULFA. Family History: No premature coronary artery disease or cancer. Social History: She does not smoke or drink. Does not use any drugs. Review of Systems: All systems reviewed and they were negative except what mentioned in HPI. Physical Examination: Vital Signs: Reviewed. Head and Neck: Pupils are equal, reactive to light. Intact eye movements. No JVD. No cervical lym phadenopathy. Neck is supple. Thyroid is not enlarged. Lungs: Clear to auscultation bilaterally. No rhonchi, rales, or crackles. No accessory muscle use. Heart: Regular rate and rhythm. No extra sounds. Abdomen: Soft, nontender. Bowel sounds positive. No organomegaly. No masses or hernia. No rigidi ty or rebound. Extremities: Trace edema bilaterally. No clubbing or cyanosis. Intact pulses. Skin: No rash. No nodule. Neurologic: Alert, awake, oriented x3 with left-sided weakness that is old. Lymph Nodes: No cervical or axillary lymphadenopathy. Investigations: Cardiac enzymes are negative. BUN is 22, creatinine 0.93. Assessment And Recommendations: 1.Chest pain. It is happening at rest. This could be unstable angina. I recommend a Lexiscan nucl ear stress test on Wednesday. Start baby aspirin and trend troponin and obtain an echo in Wednesday as wel l. 2.Hypertension. Blood pressure is elevated. Recommend to increase lisinopril to 40 mg daily and co ntinue metoprolol. 3.History of stroke with left-sided weakness that has been stable. SR/MODL Voice ID: [id number] Report ID: [id number]
[2023-04-10 16:42] LABS: Absolute Lymphocytes (CBC) 1.9 K/uL (0.7-4.9); Hematocrit 27.5 % (36.0-45.0); Lymphocytes % 17.7 % (15.3-44.8); MCV 97.6 fL (80-100); Platelets 322 thou/uL (152-406); RBC Red Blood Cell Count 2.82 M/uL (3.86-4.86)
[2023-04-10] MEDS ORDERED: VANCOMYCIN 1 GM in NA CHLORIDE 0.9% 250 ML IVPB SCH (16:49)
[2023-04-10 16:56] LABS: Magnesium 1.6 mg/dL (1.6-2.4); Phosphorus 3.9 mg/dL (2.5-4.9); Potassium 3.9 mEq/L (3.5-5.1)
[2023-04-10] MEDS ORDERED: MAGNESIUM SULFATE 1 gm IVPB 1 GM/100 ML BAG IV ONE (17:15)
[2023-04-10] MEDS ORDERED: POTASSIUM CL SA 10 MEQ TAB PO ONE (17:16)
[2023-04-10] MEDS: TEMAZEPAM 15 MG CAP PO PRN (22:35)
[2023-04-10] MEDS: TRAMADOL HCL 50 MG TAB PO PRN (22:35)
[2023-04-10] MEDS ORDERED: TRAMADOL HCL 50 MG TAB PO SCH (23:00)
[2023-04-10] MEDS ORDERED: TEMAZEPAM 15 MG CAP PO SCH (23:00)
[2023-04-11 03:39] LABS: Absolute Lymphocytes (CBC) 1.8 K/uL (0.7-4.9); Hematocrit 26.7 % (36.0-45.0); Lymphocytes % 18.8 % (15.3-44.8); MCV 93.8 fL (80-100); MPV 7.8 fL (7.6-11.3); Platelets 354 thou/uL (152-406); RBC Red Blood Cell Count 2.84 M/uL (3.86-4.86)
[2023-04-11 03:51] LABS: Magnesium 1.8 mg/dL (1.6-2.4); Potassium 3.8 mEq/L (3.5-5.1)
[2023-04-11] MEDS ORDERED: MAGNESIUM SULFATE 1 gm IVPB 1 GM/100 ML BAG IV ONE (07:00)
[2023-04-11] MEDS: INSULIN REGULAR (HUMAN) 100 UNIT/ML SQ SCH ×4 (07:30→21:00)
--- NOTE | 2023-04-11 08:50 | P.PN ---
Subjective Date of Service: 04/11/23 Primary Care Provider: Vineet Camacho Chief Complaint: Chest pain abdominal wall cellulitis Subjective: No new changes, No C/O voiced, Tolerating diet, Improving Alert oriented Breathing normally on room air Acute distress Denies any pain or discomfort at this time Abdominal wound not draining anymore Discussed with the nursing staff Physical Examination - Vital Signs Temperature: 97.1 F Blood Pressure: 137/67 Pulse: 66 Respirations: 16 Pulse Ox (%): 95 Assessment And Plan - Plan Assessment and plan Chest pain CAD Abdominal wall cellulitis CVA, left hemiplegia Left lower extremity edema Diabetes mellitus type 2, insulin-dependent Hypertension Hyperlipidemia Recurrent UTI Assessment and plan Chest pain CAD Chest Pain CAD concern for Acute Coronary Syndrome (Non-ST Segment Elevation Myocardial Infarction) Based on history and physical examination, cannot exclude ischemia as a possible etiology of chest pain. Other differential diagnoses include, but are not limited to, pulmonary embolism, pericarditis, myocarditis, gastroesophageal reflux disease, gastritis/esophagitis, esophageal spasms, pneumonia, pleuritic chest pain, and musculoskeletal chest pain (i.e. costochondritis). - EKG: No obvious ST segment changes, trend - Serial troponin , initial troponin 9.9 - Ordered transthoracic echocardiogram - Ordered chest x-ray - Ordered d-dimer - Management plan: - Consult Cardiology -discussed with Dr. Mcwilliams - S/P aspirin 324 mg PO x 1 in ED - Start daily baby aspirin - Symptom control with PRN acetaminophen, nitroglycerin, morphine - plan to start beta-misael, KOSTAS-inhibitor/ARB, statin with 24 hours Abdominal wall cellulitis * Improving nonhealing wound on the lower abdomen, small size wound no more drainage * No fever no chills * Wound care consult * Broad-spectrum antibiotic to be continued CVA, left hemiplegia * Chronic, continue continue the current management * OT PT eval and treat Left lower extremity edema: * Chronic, leg elevation * Resume home medication including diuretic Diabetes mellitus type 2, insulin-dependent * Chronic, controlled on insulin * Blood sugar check before meals and at bedtime with low-dose sliding scale ordered * Hypoglycemic precaution * Diabetic diet Hypertension * Chronic improving * Patient reports that she did not take any of her medications today * Resume home medications * Pressure is very high at this time 188 systolic * Hydralazine 10 mg IV push x1 * Will continue to monitor the blood pressure closely. Call for blood pressure sustained above 1 160/90 Hyperlipidemia * Chronic controlled on statins * Low-fat low-cholesterol diet * Resume home medications Recurrent UTI: * Chronic, repeated UTIs in the past * Continue to monitor CODE STATUS: Full code DVT prophylaxis: Lovenox Diet diabetic low-salt low-cholesterol
[2023-04-11] MEDS: ENOXAPARIN 40 MG/0.4 ML SQ SCH (08:58)
[2023-04-11] MEDS: CEFEPIME 2 GM in NA CHLORIDE 0.9% 100 ML IV SCH ×2 (08:58→21:11)
[2023-04-11] MEDS: ASPIRIN EC 81 MG TAB PO SCH (08:58)
[2023-04-11] MEDS: lisinopriL 20 MG TAB PO SCH (08:58)
[2023-04-11] MEDS ORDERED: POTASSIUM CL SA 10 MEQ TAB PO ONE (09:00)
[2023-04-11] MEDS: METOPROLOL TAR 50 MG TAB PO SCH (09:20)
--- NOTE | 2023-04-11 09:47 | P.PN ---
Date of Service: 04/11/23 [facility] Live Progress Note Patient Name: CATARINO SAMUEL Date of : 1960 Patient Status: Inpatient Attending Provider: Vineet Henderson Date: 04/11/23 Initialization Date: 04/11/23 10:47 Subjective Date of Service: 04/10/23 Primary Care Provider: Vineet Camacho Chief Complaint: Chest pain abdominal wall cellulitis Subjective: No new changes, No C/O voiced, Tolerating diet, Ambulating, Worsening Alert oriented Breathing normally on room air Acute distress Denies any pain or discomfort at this time Abdominal wound not draining anymore Discussed with the nursing staff Date of Service: 04/11/23 Review of Systems 10-point ROS is otherwise unremarkable General: Weakness Eyes: Unremarkable ENT: Unremarkable Respiratory: Unremarkable Cardiovascular: Other (Left lower extremity edema 3+ pitting), Unremarkable Gastrointestinal: Other (Abdominal wall cellulitis) Musculoskeletal: Other (Bed confined with a left-sided hemiplegia) Integumentary: Other (Very small wound on the lower abdominal area ) Physical Examination - Vital Signs Temperature: 97.2 F Blood Pressure: 157/75 Pulse: 63 Respirations: 16 Pulse Ox (%): 97 - Physical Exam General: Alert, In no apparent distress, Cooperative HEENT: Atraumatic, Normocephalic, PERRLA Neck: Supple, 2+ carotid pulse no bruit Respiratory: Clear to auscultation bilaterally, Normal air movement Cardiovascular: Normal pulses, Regular rate/rhythm, Normal S1 S2, Edema (Left lower extremity edema 3+ pitting) Capillary refill: <2 Seconds Gastrointestinal: Normal bowel sounds, No ascites, No tenderness, No masses, No rebound, No guarding, Other (Small nonhealing wound on right lower abdominal wall) Neurological: Other (Bed confined) Assessment And Plan - Plan Assessment and plan Chest pain CAD Abdominal wall cellulitis CVA, left hemiplegia Left lower extremity edema Diabetes mellitus type 2, insulin-dependent Hypertension Hyperlipidemia Recurrent UTI Assessment and plan Chest pain CAD Chest Pain CAD * Chronic, controlled. Denies any chest pain, or discomfort at this time. * Continue the current meds * Ordered troponin 07/12/22. Abdominal wall cellulitis * Chronic, Improving, non healing wound on the lower abdomen, small size wound, no more drainage, no erythema, edema or tenderness * Skin escorietion on the left this area is also improved, no signs of local infection * No fever no chills * OnBroad-spectrum antibiotic, * Discharge planning with oral antibiotics for 1 week to heal the wound completely CVA, left hemiplegia * Chronic, continue continue the current management * OT PT eval and treat Left lower extremity edema: * Chronic, leg elevation * Resume home medication including diuretic Diabetes mellitus type 2, insulin-dependent * Chronic, controlled on insulin * Blood sugar check before meals and at bedtime with low-dose sliding scale * Hypoglycemic precaution * Diabetic diet Hypertension * Chronic improving * Patient reports that she did not take any of her medications today * Resume home medications * Pressure is very high at this time 188 systolic * Hydralazine 10 mg IV push x1 * Will continue to monitor the blood pressure closely. Call for blood pressure sustained above 1 160/90 Hyperlipidemia * Chronic controlled on statins * Low-fat low-cholesterol diet * Resume home medications Recurrent UTI: * Chronic, repeated UTIs in the past * Continue to monitor CODE STATUS: Full code DVT prophylaxis: Lovenox Diet diabetic low-salt low-cholesterol <Kendell Romeo - Last Filed: 04/10/23 10:47> - Plan Improving feels small improvement of groin swelling/pain chest pain continues, at rest cardiology consulted, can't r/o UA; pain radiates to left side; story /description concerning echo and stress test on Wednesday <Vineet Henderson - Last Filed: 04/10/23 22:01>
[2023-04-11] MEDS: VANCOMYCIN 1.5 GM in NA CHLORIDE 0.9% 500 ML IVPB SCH (10:24)
[2023-04-11] MEDS: TRAMADOL HCL 50 MG TAB PO PRN ×2 (13:01→21:14)
[2023-04-11] MEDS ORDERED: lisinopriL 20 MG TAB PO ONE (13:57)
[2023-04-11] MEDS: carvediloL 12.5 MG TAB PO SCH (17:58)
[2023-04-11] MEDS: TEMAZEPAM 15 MG CAP PO PRN (21:14)
[2023-04-12 04:27] LABS: Potassium 3.9 mEq/L (3.5-5.1)
[2023-04-12] MEDS: carvediloL 12.5 MG TAB PO SCH ×2 (05:06→17:30)
[2023-04-12] MEDS: INSULIN REGULAR (HUMAN) 100 UNIT/ML SQ SCH ×4 (07:30→21:00)
--- NOTE | 2023-04-12 08:26 | P.PN ---
Date of Service: 04/12/23 [facility] Live Progress Note Patient Name: CATARINO SAMUEL Date of : 1960 Patient Status: Inpatient Attending Provider: Vineet Henderson Date: 04/12/23 Initialization Date: 04/12/23 10:47 Subjective Date of Service: 04/12/23 Primary Care Provider: Vineet Camacho Chief Complaint: Chest pain abdominal wall cellulitis Subjective: No new changes, No C/O voiced, Tolerating diet, Ambulating, Worsening Alert oriented Breathing normally on room air Acute distress Denies any pain or discomfort at this time Abdominal wound not draining anymore Discussed with the nursing staff Review of Systems 10-point ROS is otherwise unremarkable General: Weakness Eyes: Unremarkable ENT: Unremarkable Respiratory: Unremarkable Cardiovascular: Other (Left lower extremity edema 3+ pitting), Unremarkable Gastrointestinal: Other (Abdominal wall cellulitis) Musculoskeletal: Other (Bed confined with a left-sided hemiplegia) Integumentary: Other (Very small wound on the lower abdominal area ) Physical Examination - Vital Signs Temperature: 97.2 F Blood Pressure: 157/75 Pulse: 63 Respirations: 16 Pulse Ox (%): 97 - Physical Exam General: Alert, In no apparent distress, Cooperative HEENT: Atraumatic, Normocephalic, PERRLA Neck: Supple, 2+ carotid pulse no bruit Respiratory: Clear to auscultation bilaterally, Normal air movement Cardiovascular: Normal pulses, Regular rate/rhythm, Normal S1 S2, Edema (Left lower extremity edema 3+ pitting) Capillary refill: <2 Seconds Gastrointestinal: Normal bowel sounds, No ascites, No tenderness, No masses, No rebound, No guarding, Other (Small nonhealing wound on right lower abdominal wall) Neurological: Other (Bed confined) Assessment And Plan - Plan Assessment and plan Chest pain CAD Abdominal wall cellulitis CVA, left hemiplegia Left lower extremity edema Diabetes mellitus type 2, insulin-dependent Hypertension Hyperlipidemia Recurrent UTI Assessment and plan Chest pain CAD Chest Pain CAD * Chronic, controlled. Denies any chest pain, or discomfort at this time. * Continue the current meds * Ordered troponin 07/12/22. Abdominal wall cellulitis * Chronic, Improving, non healing wound on the lower abdomen, small size wound, no more drainage, no erythema, edema or tenderness * Skin escorietion on the left this area is also improved, no signs of local infection * No fever no chills * OnBroad-spectrum antibiotic, * Discharge planning with oral antibiotics for 1 week to heal the wound completely CVA, left hemiplegia * Chronic, continue continue the current management * OT PT eval and treat Left lower extremity edema: * Chronic, leg elevation * Resume home medication including diuretic Diabetes mellitus type 2, insulin-dependent * Chronic, controlled on insulin * Blood sugar check before meals and at bedtime with low-dose sliding scale * Hypoglycemic precaution * Diabetic diet Hypertension * Chronic improving * Patient reports that she did not take any of her medications today * Resume home medications * Pressure is very high at this time 188 systolic * Hydralazine 10 mg IV push x1 * Will continue to monitor the blood pressure closely. Call for blood pressure sustained above 1 160/90 Hyperlipidemia * Chronic controlled on statins * Low-fat low-cholesterol diet * Resume home medications Recurrent UTI: * Chronic, repeated UTIs in the past * Continue to monitor CODE STATUS: Full code DVT prophylaxis: Lovenox Diet diabetic low-salt low-cholesterol - Plan Improving feels small improvement of groin swelling/pain chest pain continues, at rest cardiology consulted, can't r/o UA; pain radiates to left side; story /description concerning echo and stress test on Wednesday <Kendell Romeo - Last Filed: 04/12/23 08:23> unable to get stress test - h/o CVA and can't lift arm Dr. Washington planning cardiac cath tomorrow can't r/o unstable angina with symptoms control BP, adjust meds <Vineet Henderson - Last Filed: 04/12/23 21:19>
[2023-04-12] MEDS ORDERED: POTASSIUM CL SA 10 MEQ TAB PO ONE (09:00)
[2023-04-12] MEDS: ENOXAPARIN 40 MG/0.4 ML SQ SCH (09:13)
[2023-04-12] MEDS: lisinopriL 20 MG TAB PO SCH (09:13)
[2023-04-12] MEDS: ASPIRIN EC 81 MG TAB PO SCH (09:13)
[2023-04-12] MEDS: CEFEPIME 2 GM in NA CHLORIDE 0.9% 100 ML IV SCH (09:14)
[2023-04-12] MEDS: TRAMADOL HCL 50 MG TAB PO PRN (15:24)
[2023-04-12] MEDS: HYDRALAZINE HCL 20 MG/ML VIAL IV PRN ×2 (16:07→21:40)
--- NOTE | 2023-04-12 17:11 | EKG ---
Test Date: 2023-04-09 Test Time: 14:43:57 [employer] Superintendent: DEONNA MEASUREMENT RESULTS: Intervals: Rate: 70 [place]: 140 QRSD: 146 QT: 422 QTc: 455 [place]: P: 43 [place]: 140 QRS: -5 T: 43 INTERPRETIVE STATEMENTS: Normal sinus rhythm Right bundle branch block Abnormal ECG Compared to ECG 03/06/2023 23:11:37 No significant changes Electronically Signed On 04-12-23 17:06:00 CDT by Alexi Washington
--- NOTE | 2023-04-12 19:48 | PN ---
Date of Progress Note: 04/12/2023 Subjective: Seen by bedside. Doing clinically well, but she is having on and off chest pain, pressu re like, radiates to the shoulder and the neck and even while at rest. Review of Systems: Positive chest pain as above. No nausea, vomiting, or diarrhea. No abdominal pain. No dysuria, raya yuria, or urinary urgency. All other systems were reviewed, they were negative. Objective: Vital Signs: Reviewed. Head and Neck: Pupils are equal, reactive to light. Intact eye movements. No JVD. No cervical lym phadenopathy. Neck is supple. Thyroid is not enlarged. Lungs: Clear to auscultation bilaterally. No rhonchi, wheezing, or crackles. No accessory muscle u se. Heart: Regular rate and rhythm. No extra sounds. Abdomen: Soft, nontender. Bowel sounds positive. No organomegaly. No masses or hernia. No rigidi ty or rebound. Extremities: No edema, clubbing, or cyanosis. Intact pulses. Skin: No rash. No nodule. Neurologic: Alert, awake, oriented x3. No acute focal deficits appreciated. Investigations: Labs were reviewed. Assessment And Recommendations: 1.Chest pain, keeps happening and has typical features. Could not do a stress test because she jonnathan ot lift her arm due to left-sided paralysis. This could be an unstable angina. Recommend coronary a ngiogram. We will plan for it, to be done tomorrow. 2.Hypertension. Blood pressure is acceptable. Continue current management. Further recommendation after the heart catheterization tomorrow. SR/MODL Voice ID: [id number] Report ID: [id number]
[2023-04-12] MEDS: AMOX/K CLAV 875 MG TAB PO SCH (21:40)
[2023-04-12] MEDS: TEMAZEPAM 15 MG CAP PO PRN (21:54)
[2023-04-12] MEDS: ONDANSETRON 4 MG/2 ML VIAL IV PRN (23:25)
[2023-04-13] MEDS: ACETAMINOPHEN 500 MG TAB PO PRN ×2 (02:36→12:03)
[2023-04-13] MEDS: ONDANSETRON 4 MG/2 ML VIAL IV PRN (05:26)
[2023-04-13] MEDS: carvediloL 12.5 MG TAB PO SCH ×3 (06:00→18:00)
[2023-04-13] MEDS: INSULIN REGULAR (HUMAN) 100 UNIT/ML SQ SCH ×4 (07:30→20:47)
--- NOTE | 2023-04-13 07:31 | ECHO ---
HEIGHT: 5 ft 3 in WEIGHT: 170 lb 0 oz DATE OF STUDY: 04/12/[address]: Kendell Romeo NP 2-DIMENSIONAL: YES M.MODE: YES DOPPLER: YES COLOR FLOW: YES TDS: PORTABLE: YES DEFINITY: BUBBLE STUDY: DIAGNOSIS: CHEST PAIN CARDIAC HISTORY: CATHERIZATION: SURGERY: PROSTHETIC VALVE: PACEMAKER: MEASUREMENTS (cm) DIASTOLIC (NORMALS) SYSTOLIC (NORMALS) IVSd 1.2 (0.6-1.2) LA Diam 3.3 (1.9-4.0) LVEF 65% LVIDd 3.8 (3.5-5.7) LVIDs 2.5 (2.0-3.5) %FS 35% LVPWd 1.0 (0.6-1.2) Ao Diam 2.7 (2.0-3.7) 2 DIMENSIONAL ASSESSMENT: RIGHT ATRIUM: NORMAL LEFT ATRIUM: NORMAL RIGHT VENTRICLE: NORMAL LEFT VENTRICLE: NORMAL TRICUSPID VALVE: NORMAL MITRAL VALVE: NORMAL PULMONIC VALVE: NORMAL AORTIC VALVE: NORMAL PERICARDIAL EFFUSION: NONE AORTIC ROOT: NORMAL LEFT VENTRICULAR WALL MOTION: NORMAL DOPPLER/COLOR FLOW: NORMAL COMMENTS: 1. NORMAL LEFT VENTRICULAR EJECTION FRACTION 60-65% 2. NORMAL WALL MOTION TECHNOLOGIST: CHRISTY JIANG
[2023-04-13] MEDS: ENOXAPARIN 40 MG/0.4 ML SQ SCH (09:00)
[2023-04-13] MEDS: lisinopriL 20 MG TAB PO SCH (09:49)
[2023-04-13] MEDS: ASPIRIN EC 81 MG TAB PO SCH (09:49)
[2023-04-13] MEDS: AMOX/K CLAV 875 MG TAB PO SCH ×2 (09:49→20:38)
[2023-04-13] MEDS ORDERED: ONDANSETRON 4 MG/2 ML VIAL IV ONE (10:00)
[2023-04-13] MEDS ORDERED: ONDANSETRON 4 MG/2 ML VIAL IV PRN (12:13)
--- NOTE | 2023-04-13 12:56 | PN ---
Date of Progress Note: 04/13/2023 Subjective: Seen by bedside. Clinically, still having chest pain on and off, could not do a stress test and planning for coronary angiogram today. She is n.p.o., but she is having nausea this morning . Review of Systems: Chest pain as above with nausea. No fever. No cough. No dysuria, pyuria, or shortness of breath. All other systems were reviewed and they were negative. Physical Examination: Vital signs: Reviewed. Head and Neck: Pupils are equal, reactive to light. Intact eye movements. No JVD. No cervical lym phadenopathy. Neck: Supple. Thyroid is not enlarged. Lungs: Clear to auscultation bilaterally. No rhonchi, wheezing, or crackles. No accessory muscle u se. Heart: Regular rate and rhythm. No extra sounds. Abdomen: Soft, nontender. Bowel sounds positive. No organomegaly. No masses or hernia. No rigidi ty or rebound. Extremities: No edema, clubbing, or cyanosis. Intact pulses. Skin: No rashes or nodules. Neurologic: Alert, awake, oriented x3. No new changes. She is paralyzed on the left side. Investigations: BUN 19, creatinine 0.89, and hemoglobin 9.1. Assessment And Recommendations: 1.Unstable angina. N.p.o. Plan for coronary angiogram today. 2.History of cerebrovascular accident with left-sided paralysis and this is stable. Continue curren t management. 3.Hypertension. Blood pressure is controlled. Continue current management. /NATI Voice ID: [id number] Report ID: [id number]
[2023-04-13] MEDS: FAMOTIDINE 20 MG/2 ML VIAL IV SCH ×2 (13:02→20:43)
[2023-04-13] MEDS ORDERED: HEPARIN 10,000 UNIT/10 ML VIAL IV ONE (15:03)
[2023-04-13] MEDS ORDERED: LIDOCAINE 1% 20 ML MDV ONE (15:03)
[2023-04-13] MEDS ORDERED: HEPA 1000U/500MLS 3,000 UNIT/1,500 ML BAG IV ONE (15:03)
[2023-04-13] MEDS ORDERED: NA CHLORIDE 0.9% 500 ML ONE (15:12)
[2023-04-13] MEDS ORDERED: MIDAZOLAM HCL 2 MG/2 ML INJ ONE (15:28)
[2023-04-13] MEDS ORDERED: FENTANYL CITR 100 MCG/2 ML ONE (15:28)
[2023-04-13] MEDS ORDERED: HYDRALAZINE HCL 20 MG/ML VIAL ONE (15:32)
--- NOTE | 2023-04-13 16:05 | P.PN ---
Subjective Date of Service: 04/13/23 Primary Care Provider: Vineet Camacho Chief Complaint: Chest pain abdominal wall cellulitis Patient reported some nausea this morning. She is n.p.o. for cardiac cath today. Physical Examination - Vital Signs Temperature: 97.7 F Blood Pressure: 141/81 Pulse: 90 Respirations: 18 Pulse Ox (%): 100 Assessment And Plan - Plan Physical Exam General: Alert, In no apparent distress, Cooperative HEENT: Atraumatic, Normocephalic, PERRLA Neck: No elevated JVD. Respiratory: Clear to auscultation bilaterally, Normal air movement Cardiovascular: Normal pulses, Regular rate/rhythm, Normal S1 S2, Edema (Left lower extremity edema 3+ pitting) Gastrointestinal: Normal bowel sounds, No ascites, No tenderness, No masses, No rebound, No guarding, Neurological: Bedbound, left hemiplegia. Diagnosis Chest pain CAD CVA, left hemiplegia Left lower extremity edema Diabetes mellitus type 2, insulin-dependent Hypertension Hyperlipidemia Recurrent UTI Plan Unstable angina CAD * Recurrent chest pain. * Troponin trended negative * Patient seen by cardiology. * Patient is not able to perform nuclear stress test. * She is scheduled for cardiac catheterization today. Abdominal wall wound * Chronic, Improving, non healing wound on the lower abdomen, small size wound, no more drainage, no erythema, edema or tenderness * Skin escorietion on the left this area is also improved, no signs of local infection * No fever no chills * On Augmentin. CVA, left hemiplegia * Chronic, continue continue the current management Left lower extremity edema: * Chronic, leg elevation * Continue home dose oral Lasix. Diabetes mellitus type 2, insulin-dependent * Chronic, controlled on insulin * Blood sugar check before meals and at bedtime with low-dose sliding scale * Diabetic diet Hypertension * Chronic * Continue home medications * Hydralazine 10 mg IV as needed for BP spikes. Hyperlipidemia * Chronic * Continue statins * Low-fat low-cholesterol diet Recurrent UTI: * Repeated UTIs in the past * Patient is on Augmentin. * UA is negative for UTI demonstrated yeast * Empiric oral Diflucan. CODE STATUS: Full code DVT prophylaxis: Lovenox Diet diabetic low-salt low-cholesterol
[2023-04-13] MEDS: ATORVASTATIN 80 MG TAB PO SCH (20:38)
[2023-04-13] MEDS: TAMSULOSIN 0.4 MG SR CAP PO SCH (20:38)
[2023-04-13] MEDS: VALSARTAN 80 MG TAB PO SCH (20:43)
[2023-04-13] MEDS: hydroCHLOROthiazide 12.5 MG CAP PO SCH (20:44)
[2023-04-13] MEDS ORDERED: HOME MED 1 EA UNK (Irbesartan/Hydrochlorothiazide [Avalide 150-12.5 Mg Tablet] 1 EACH Tabl PO SCH (21:00)
[2023-04-14] MEDS: carvediloL 12.5 MG TAB PO SCH ×2 (05:34→18:30)
[2023-04-14] MEDS: INSULIN REGULAR (HUMAN) 100 UNIT/ML SQ SCH ×4 (07:30→21:00)
[2023-04-14] MEDS: lisinopriL 20 MG TAB PO SCH (08:29)
[2023-04-14] MEDS: FAMOTIDINE 20 MG/2 ML VIAL IV SCH ×2 (08:29→20:26)
[2023-04-14] MEDS: FLUCONAZOLE 100 MG TAB PO SCH (08:29)
[2023-04-14] MEDS: ENOXAPARIN 40 MG/0.4 ML SQ SCH (08:29)
[2023-04-14] MEDS: AMOX/K CLAV 875 MG TAB PO SCH ×2 (08:29→20:29)
[2023-04-14] MEDS: ASPIRIN EC 81 MG TAB PO SCH (08:30)
[2023-04-14] MEDS: SERTRALINE HCL 100 MG TAB PO SCH (08:30)
[2023-04-14] MEDS: FUROSEMIDE 40 MG TABLET PO SCH (08:30)
[2023-04-14 08:52] LABS: Absolute Lymphocytes (CBC) 1.6 K/uL (0.7-4.9); Hematocrit 25.1 % (36.0-45.0); Lymphocytes % 23.1 % (15.3-44.8); MCV 94.5 fL (80-100); MPV 7.7 fL (7.6-11.3); Platelets 369 thou/uL (152-406); RBC Red Blood Cell Count 2.66 M/uL (3.86-4.86)
[2023-04-14] MEDS: TRAMADOL HCL 50 MG TAB PO PRN (10:41)
--- NOTE | 2023-04-14 14:48 | P.DS ---
Admission Date: 04/09/23 Discharge Date: 04/14/23 Primary Care Provider: Vienet Camacho Disposition: DC HOME/HOME HEALTH CARE Discharge Condition: FAIR Reason for Admission: Chest pain abdominal wall cellulitis Brief History of Present Illness: 63-year-old female with a history of CVA , left-sided hemiplegia diabetes mellitus insulin-dependent, hyperlipidemia, hypertensive disorder. Patient came to the ER with a complaint of pain lower abdominal area and chest pain for almost 1 month. Patient denied fever chills or dizziness. Patient denies shortness of breath, or pleurisy. ED course;ital Signs: BP 136 / 75; Pulse 98; Resp 16; Temp 98(O); Pulse Ox 97% on R/A; Pain 5/10; lab work significant for BUN 22, blood glucose 146, BNP 360, CT pelvis shows increased density in the subcutaneous tissue around pelvis. Patient was admitted for further management. Hospital Course: Diagnosis Chest pain CAD CVA, left hemiplegia Left lower extremity edema Diabetes mellitus type 2, insulin-dependent Hypertension Hyperlipidemia Recurrent UTI Patient was admitted to the medical floor and the following medical problems addressed Unstable angina CAD * Recurrent chest pain. * Troponin trended negative * Patient seen by cardiology. * Patient is not able to perform nuclear stress test. * Cardiac catheterization performed. No cardiac stent. * Patient maintained on aspirin, Lipitor and beta-misael Abdominal/pelvic wall anasarca * Chronic, Improving, non healing wound on the lower abdomen, small size wound, no more drainage, no erythema, edema or tenderness * Skin escorietion on the left this area is also improved, no signs of local infection. * CT abdomen indicated increased density in the subcutaneous tissues but other findings does not suggest cellulitis. * No fever or leukocytosis * Patient was placed on Augmentin. CVA, left hemiplegia * Chronic * Continued home medications. Left lower extremity edema: * Chronic, leg elevation * Continued home dose oral Lasix. Diabetes mellitus type 2, insulin-dependent * Managed with insulin sliding scale. * Home diabetes regimen-Lantus and metformin resumed on discharge. Hypertension * Chronic * Continued home medications. Hyperlipidemia * Chronic * Continued home dose statins * Low-fat low-cholesterol diet Recurrent UTI: * Repeated UTIs in the past * Patient placed on Augmentin. * UA is negative for bacteria, demonstrated yeast or colonization. Vital Signs/Physical Exam: Temp Pulse Resp BP Pulse Ox 97.7 F 80 14 176/82 H 97 04/14/23 12:00 04/14/23 12:00 04/14/23 12:00 04/14/23 12:00 04/14/23 12:00 General: In no apparent distress, Oriented x3 HEENT: Mucous membr. moist/pink Neck: JVD not distended Respiratory: Clear to auscultation bilaterally, Normal air movement Cardiovascular: Regular rate/rhythm, Normal S1 S2, Edema (Bilateral lower extremities) Gastrointestinal: Soft and benign, Non-distended, No tenderness Musculoskeletal: Swelling (Bilateral lower extremities) Integumentary: Other (No open wound) Laboratory Data at Discharge: WBC 7.00 thou/uL (4.3-10.9) 04/14/23 08:43 Hgb 8.6 g/dL (12.0-15.0) L 04/14/23 08:43 Hct 25.1 % (36.0-45.0) L 04/14/23 08:43 Plt Count 369 thou/uL (152-406) 04/14/23 08:43 Sodium 139 mEq/L (136-145) 04/14/23 08:43 Potassium 4.0 mEq/L (3.5-5.1) 04/14/23 08:43 BUN 22 mg/dL (7-18) H 04/14/23 08:43 Creatinine 0.95 mg/dL (0.55-1.02) 04/14/23 08:43 Glucose 170 mg/dL (74-106) H 04/14/23 08:43 Phosphorus 3.9 mg/dL (2.5-4.9) 04/10/23 16:29 Magnesium Cancelled 04/12/23 05:00 Total Bilirubin 0.1 mg/dL (0.2-1.0) L 04/09/23 12:46 AST 19 U/L (15-37) 04/09/23 12:46 ALT 16 U/L (13-56) 04/09/23 12:46 Alkaline Phosphatase 123 U/L (45-117) H 04/09/23 12:46 Triglycerides 130 mg/dL (<150) 04/09/23 17:09 Cholesterol 155 mg/dL (<200) 04/09/23 17:09 HDL Cholesterol 47 mg/dL (40-60) 04/09/23 17:09 Cholesterol/HDL Ratio 3.30 04/09/23 17:09 Home Medications: Aspirin [Aspirin EC 81 MG] 81 mg PO DAILY 10/18/22 Atorvastatin Calcium [Lipitor] 80 mg PO BEDTIME 10/18/22 Carvedilol [Coreg] 12.5 mg PO BID 10/18/22 Furosemide 40 mg PO PRN 10/18/22 Gabapentin 400 mg PO TID 10/18/22 Insulin Glargine,Hum.rec.anlog [Lantus] 23 units SQ BEDTIME 10/18/22 Insulin Lispro [Humalog] 7 units SQ BEDTIME 10/18/22 Irbesartan/Hydrochlorothiazide [Avalide 150-12.5 mg Tablet] 1 tab PO BEDTIME 10/18/22 Metformin ER [Glucophage ER*] 500 mg PO BID 10/18/22 Sertraline [Zoloft*] 100 mg PO DAILY 10/18/22 Tamsulosin [Flomax*] 0.4 mg PO BEDTIME 10/18/22 Temazepam 15 mg PO PRN 10/18/22 Tramadol HCl [Ultram] 50 mg PO PRN 10/18/22 Acetaminophen [Tylenol Extra Strength] 500 mg PO TID 04/09/23 Amox/Clavulanate [Augmentin 875-125 Tab*] 875 mg PO BID #10 tab 04/14/23 carvediloL [Coreg*] 25 mg PO BID 6AM 6PM #60 tab 04/14/23 New Medications: Amox/Clavulanate [Augmentin 875-125 Tab*] 875 mg PO BID #10 tab carvediloL [Coreg*] 25 mg PO BID 6AM 6PM #60 tab Diet: ADA Activity: Fall precautions Followup: NONE,NONE [Primary Care Provider] - 1-2 Weeks Time spent managing pt's care (in minutes): 37
[2023-04-14] MEDS: ATORVASTATIN 80 MG TAB PO SCH (20:26)
[2023-04-14] MEDS: hydroCHLOROthiazide 12.5 MG CAP PO SCH (20:27)
[2023-04-14] MEDS: TAMSULOSIN 0.4 MG SR CAP PO SCH (20:28)
[2023-04-14] MEDS: VALSARTAN 80 MG TAB PO SCH (20:29)
[2023-04-15] MEDS: carvediloL 12.5 MG TAB PO SCH (05:14)
[2023-04-15] MEDS: INSULIN REGULAR (HUMAN) 100 UNIT/ML SQ SCH ×2 (07:30→11:30)
[2023-04-15] MEDS: ASPIRIN EC 81 MG TAB PO SCH (08:42)
[2023-04-15] MEDS: AMOX/K CLAV 875 MG TAB PO SCH (08:42)
[2023-04-15] MEDS: lisinopriL 20 MG TAB PO SCH (08:42)
[2023-04-15] MEDS: FLUCONAZOLE 100 MG TAB PO SCH (08:43)
[2023-04-15] MEDS: ENOXAPARIN 40 MG/0.4 ML SQ SCH (08:43)
[2023-04-15] MEDS: SERTRALINE HCL 100 MG TAB PO SCH (08:43)
[2023-04-15] MEDS: FUROSEMIDE 40 MG TABLET PO SCH (08:43)
[2023-04-15] MEDS: FAMOTIDINE 20 MG/2 ML VIAL IV SCH (08:44)
[2023-04-15 09:33] VITALS: O2SAT 97
[2023-04-15 12:33] VITALS: TEMP 97
[2023-04-15 15:47] VITALS: BP 152/67
== END 2023-04-15 15:48 | disposition home or self-care (01) | DRG 603 ==
LOC: ER 12:15 → ERHOLD 16:22 → 2ND 18:02
PROVIDERS: ADMIT Hospitalist; ATTEND Internal Medicine
DX: L03.311 Cellulitis of abdominal wall (principal); I25.110 Atherosclerotic heart disease of native coronary artery with unstable angina pectoris; I69.354 Hemiplegia and hemiparesis following cerebral infarction affecting left non-dominant side; I10 Essential (primary) hypertension; E11.9 Type 2 diabetes mellitus without complications; E78.00 Pure hypercholesterolemia, unspecified; R60.1 Generalized edema; Z93.3 Colostomy status; Z88.2 Allergy status to sulfonamides; Z79.4 Long term (current) use of insulin; Z79.82 Long term (current) use of aspirin; Z79.02 Long term (current) use of antithrombotics/antiplatelets; Z79.84 Long term (current) use of oral hypoglycemic drugs; Z74.01 Bed confinement status; Z79.899 Other long term (current) drug therapy
CPT/HCPCS: 36415; 71045; 72193; 76937; 80048; 80053; 80061; 80202; 81001; 82947; 83735; 83880; 84100; 84443; 84484; 85025; 85379; 93005; 93306; 93458; 96374; 99285; C1893; J0360; J0692; J1650; J1815; J2001; J2250; J2405; J3010; J3475; J7040; J7050; Q9967